=== PATIENT | female | born 1955 | race Caucasian/White ===

== ENCOUNTER 2018-07-19 06:28 | Emergency (ER) | payer OTHER, SELFPAY ==
[2018-07-19] MEDS ORDERED: PROMETHAZINE 25 MG/ML VIAL ONE (07:22)
[2018-07-19] MEDS ORDERED: NA CHLORIDE 0.9% 1,000 ML ONE ×2 (07:22→08:37)
[2018-07-19 07:34] LABS: Absolute Lymphocytes (CBC) 1.8 K/uL (0.7-4.9); Absolute Monocytes 0.6 K/uL (0.1-1.3); Absolute Neutrophil 7.2 K/uL (1.8-8.0); Basophils % 1.1 % (0-1.3); Eosinophils % 0.1 % (0-4.4); Hematocrit 39.6 % (36.0-45.0); Lymphocytes % 18.9 % (15.3-44.8); MPV 9.5 fL (7.6-11.3); Monocytes % 5.8 % (3.3-12.3); RBC Red Blood Cell Count 4.09 M/uL (3.86-4.86)
[2018-07-19 07:45] LABS: Urine Blood NEGATIVE (NEG); Urine Glucose NEGATIVE (NEG); Urine Protein NEGATIVE (NEG)
[2018-07-19 07:52] LABS: Albumin 4.1 g/dL (3.4-5.0); Bilirubin Direct 0.3 mg/dL (0-0.2); Bilirubin Total 0.7 mg/dL (0.2-1.0); Potassium 3.7 mmol/L (3.5-5.1); Protein, Total 7.5 g/dL (6.4-8.2)
[2018-07-19 07:54] LABS: Urine Bacteria >50 /HPF (<20); Urine RBC <5 /HPF (NONE SEEN)
[2018-07-19 07:55] LABS: Urine Culture Reflex Order REFLEXED; Urine Mucus LIGHT /HPF (NONE SEEN)
[2018-07-19] MEDS ORDERED: FAMOTIDINE 20 MG/2 ML VIAL IV ONE (08:07)
[2018-07-19] MEDS ORDERED: MAGNESIUM SULFATE 1 gm IVPB 1 GM/100 ML BAG IV ONE (08:07)
[2018-07-19] MEDS ORDERED: CEFTRIAXONE/SWI 1gm 0 GM/0 ML SYR ONE (08:07)
--- NOTE | 2018-07-19 08:41 | RAD REPORT ---
EXAM DESCRIPTION: CTAbdomen Pelvis W Contrast - 07/19/2018 8:23 am CLINICAL HISTORY: Abdominal pain. iv only;Abd pain COMPARISON: Angio Aorta For Dissection dated 07/24/2016 TECHNIQUE: Biphasic CT imaging of the abdomen and pelvis was performed with 100 ml non-ionic IV cont rast. All CT scans are performed using dose optimization technique as appropriate and may include automated exposure control or mA/KV adjustment according to patient size. FINDINGS: The lung bases are clear.Postsurgical changes of a gastric bypass noted. Cholecystectomy c lips. The liver, spleen, pancreas, adrenal glands and kidneys are within normal limits. Small cyst is seen in the right kidney posteriorly. No bowel obstruction, free air, free fluid or abscess. Scattered colonic diverticulosis. The appendix is normal. No evidence of significant lymphadenopathy. No suspicious bony findings. IMPRESSION: No acute intra-abdominal or pelvic finding.
[2018-07-19] MEDS ORDERED: ONDANSETRON 4 MG/2 ML VIAL ONE (08:43)
[2018-07-19] MEDS ORDERED: MORPHINE 4 MG/ML SYR ONE (08:43)
[2018-07-19] MEDS ORDERED: metroNIDAZOLE 500 MG TABLET ONE (09:39)
[2018-07-19] MEDS ORDERED: CIPROFLOXACIN HCL 500 MG TAB ONE (09:40)
--- NOTE | 2018-07-19 09:53 | ER ---
Nurse's Notes [facility] Name: Minnie Flores Age: 62 yrs Sex: Female : 1955 Arrival Date: 07/19/2018 Time: 06:29 Bed 7 Private MD: Diagnosis: Gastroenteritis;Dehydration;Hypomagnesemia;Urinary tract infection, site not specified Presentation: 07/19 06:38 Presenting complaint: Patient states: Nausea and vomiting since Monday. Patient reports ao abdominal pain also and getting confuse lately. Patient reports a fall two days ago and denies trauma. Transition of care: patient was not received from another setting of care. Onset of symptoms is unknown. Risk Assessment: Do you want to hurt yourself or someone else? Patient reports no desire to harm self or others. Initial Sepsis Screen: Does the patient meet any 2 criteria? No. Patient's initial sepsis screen is negative. Does the patient have a suspected source of infection? No. Patient's initial sepsis screen is negative. Care prior to arrival: None. 06:38 Method Of Arrival: Ambulatory ao 06:38 Acuity: AMY 3 ao Triage Assessment: 06:44 General: Appears. ao 06:45 GI: Reports. ao Historical: - Allergies: 06:42 Prilosec; ao 06:42 Seroquel; ao - Home Meds: 06:42 acarbose 50 mg Oral tab twice a day [Active]; lamotrigine 100 mg Oral TbDL 1 tab 2 ao times per day [Active]; 06:49 alendronate 70 mg Oral tab 1 tab once wkly [Active]; hydrocodone-acetaminophen 10-325 ao mg Oral tab 1 tab every 6 hours [Active]; Lorazepam Oral [Active]; trazodone 150 mg Oral tab 1 tab 2 times per day [Active]; lurasidone Oral once daily [Active]; promethazine 25 mg Oral tab 1 tab every 6 hours [Active]; oxcarbazepine 300 mg Oral tab three times a day [Active]; aspirin 81 mg Oral TbEC 1 tab once daily [Active]; sumatriptan succinate 100 mg Oral tab every 2 hours as needed for migraine, max 2 tabs per day [Active]; buspirone 15 mg Oral tab three times a day [Active]; - PMHx: 06:42 Bipolar disorder; Degenerative disc disease; Depression; Fibromyalgia; ao - PSHx: 06:42 Hysterectomy; ao - Immunization history:: Adult Immunizations up to date. - Social history:: Smoking status: Patient/guardian denies using tobacco, Patient uses alcohol, occasionally. Patient/guardian denies using street drugs. - Ebola Screening: : Patient negative for fever greater than or equal to 101.5 degrees Fahrenheit, and additional compatible Ebola Virus Disease symptoms Patient denies exposure to infectious person Patient denies travel to an Ebola-affected area in the 21 days before illness onset. Screenin:44 Abuse screen: Denies threats or abuse. Denies injuries from another. Nutritional ao screening: No deficits noted. Tuberculosis screening: No symptoms or risk factors identified. Fall Risk None identified. Assessment: 06:45 General: Appears in no apparent distress. uncomfortable, Behavior is calm, cooperative, ao appropriate for age. Pain: Complains of pain in abdomen Pain does not radiate. Pain currently is 8 out of 10 on a pain scale. Neuro: Level of Consciousness is awake, alert, obeys commands, Oriented to person, place, time, situation, Appropriate for age Moves all extremities. Full function Speech is normal, Facial symmetry appears normal, Pupils are PERRLA. Cardiovascular: Capillary refill < 3 seconds Patient's skin is warm and dry. Respiratory: Airway is patent Respiratory effort is even, unlabored, Respiratory pattern is regular, symmetrical. GI: Abdomen is obese, Reports lower abdominal pain, upper abdominal pain, nausea, vomiting. : No signs and/or symptoms were reported regarding the genitourinary system. EENT: No signs and/or symptoms were reported regarding the EENT system. Derm: Skin is intact, Skin is pink, warm \T\ dry. normal, Skin temperature is warm. Musculoskeletal: Circulation, motion, and sensation intact. Range of motion: intact in all extremities. 07:45 Reassessment: Patient appears in no apparent distress at this time. No changes from jl7 previously documented assessment. Patient and/or family updated on plan of care and expected duration. Pain level reassessed. Patient is alert, oriented x 3, equal unlabored respirations, skin warm/dry/pink. 08:35 Reassessment: Pt reports continued abdominal pain and nausea, ERP notified, see MAR for jl7 orders. 09:20 Reassessment: Patient appears in no apparent distress at this time. Patient and/or jl7 family updated on plan of care and expected duration. Pain level reassessed. Patient is alert, oriented x 3, equal unlabored respirations, skin warm/dry/pink. Patient states symptoms have improved. 10:20 Reassessment: No changes from previously documented assessment. Patient and/or family jl7 updated on plan of care and expected duration. Pain level reassessed. Patient is alert, oriented x 3, equal unlabored respirations, skin warm/dry/pink. Vital Signs: 06:42 BP 157 / 87; Pulse 113; Resp 18; Temp 98.2(O); Pulse Ox 97% on R/A; Weight 85.28 kg ao (R); Height 5 ft. 6 in. (167.64 cm) (R); Pain 8/10; 07:00 BP 136 / 72; Pulse 85; Resp 16 S; Pulse Ox 100% on R/A; jl7 08:30 BP 154 / 73; Pulse 77; Resp 16 S; Pulse Ox 100% on R/A; jl7 09:20 BP 152 / 68; Pulse 79; Resp 16 S; Pulse Ox 99% on R/A; jl7 10:20 BP 153 / 70; Pulse 80; Resp 16 S; Pulse Ox 99% on R/A; jl7 06:42 Body Mass Index 30.34 (85.28 kg, 167.64 cm) ao ED Course: 06:29 Patient arrived in ED. ag3 06:34 Michael Rueda PA is PHCP. jr8 06:34 Cheng Mohan MD is Attending Physician. jr8 06:40 Triage completed. ao 06:43 Arm band placed on right wrist. Patient placed in an exam room, on a stretcher, on ao rn cardiac cath, on pulse oximetry, Patient notified of wait time. 06:44 Patient placed Patient notified of wait time Emesis basin given. ao 06:47 Patient has correct armband on for positive identification. Pulse ox on. NIBP on. ao 06:50 Missed attempt(s): 20 gauge in right antecubital area. ao 06:55 Inserted saline lock: 20 gauge in right upper arm, using aseptic technique. Blood ao collected. 07:09 Gama Duffy RN is Primary Nurse. jl7 08:02 Basic Metabolic Panel Sent. jl7 08:23 CT Abd/Pelvis - W/Contrast In Process Unspecified. EDMS 08:49 Nabeel Ellis MD is Attending Physician. jr8 10:20 No provider procedures requiring assistance completed. jl7 10:44 IV discontinued, intact, bleeding controlled, No redness/swelling at site. Pressure jl7 dressing applied. Administered Medications: 07:20 Drug: NS 0.9% 1000 ml Route: IV; Rate: 1000 ml; Site: right upper arm; jl7 08:20 Follow up: Response: No adverse reaction; IV Status: Completed infusion jl7 07:21 Drug: Phenergan 12.5 mg Route: IVP; Site: right upper arm; jl7 07:35 Follow up: Response: No adverse reaction; Nausea is decreased jl7 08:01 Drug: Pepcid 20 mg Route: IVP; Site: right upper arm; jl7 08:45 Follow up: Response: No adverse reaction jl7 08:35 Drug: NS 0.9% 1000 ml Route: IV; Rate: 1000 ml; Site: right upper arm; jl7 08:38 Drug: Zofran 4 mg Route: IVP; Site: right upper arm; jl7 09:17 Follow up: Response: No adverse reaction; Nausea unchanged jl7 08:40 Drug: morphine 4 mg Route: IVP; Site: right antecubital; jl7 09:18 Follow up: Response: No adverse reaction; Pain is decreased jl7 08:41 Drug: Magnesium Sulfate 1 grams Route: IVPB; Infused Over: 1 hrs; Site: right upper arm;jl7 09:34 Drug: Cipro 500 mg Route: PO; jl7 10:44 Follow up: Response: No adverse reaction jl7 09:35 Drug: Flagyl 500 mg Route: PO; jl7 10:44 Follow up: Response: No adverse reaction jl7 Outcome: 09:53 Discharge ordered by . jr8 10:44 Discharged to home ambulatory, with family. jl7 10:44 Condition: stable 10:44 Discharge instructions given to patient, family, Instructed on discharge instructions, follow up and referral plans. medication usage, Demonstrated understanding of instructions, follow-up care, medications, Prescriptions given X 4. 10:45 Patient left the ED. jl7 Addendum: 07/23/2018 07:43 Addendum: Culture Results: Positive urine culture. No further action required. Bacteria i w sensitive to prescribed antibiotic. Signatures: Dispatcher [employer] EDLori Ramirez, RN RN Michael Sheehan PA PA jr8 Ronnell Gutierrez RN RN ao Leal, Jahala, RN RN jl7 Mikayla Schroeder3 Corrections: (The following items were deleted from the chart) 07/19 10:45 10:20 IV discontinued, intact, bleeding controlled, No redness/swelling at site. jl7 Pressure dressing applied, jl7
--- NOTE | 2018-07-19 09:54 | EDPHYS ---
Physician Documentation [facility] Name: Minnie Flores Age: 62 yrs Sex: Female : 1955 Arrival Date: 07/19/2018 Time: 06:29 Bed 7 Private MD: ED Physician Nabeel Ellis HPI: 07/19 08:06 This 62 yrs old Female presents to ER via Ambulatory with complaints of jr8 Vomiting/Diarrhea. 08:06 The patient presents to the emergency department with nausea, vomiting, diarrhea, jr8 abdominal pain. Onset: The symptoms/episode began/occurred gradually, 4 day(s) ago. Possible causes: unknown. The symptoms are aggravated by food , The symptoms are alleviated by nothing. Associated signs and symptoms: The patient has no apparent associated signs or symptoms. Severity of symptoms: At their worst the symptoms were moderate in the emergency department the symptoms are unchanged. The patient has not experienced similar symptoms in the past. The patient has not recently seen a physician. Stated that she has not been able to hold down any of her home medications since Monday morning. concerned because she has been hallucinating on/off. Patient stated that she saw specs of blood in last vomiting episode . Historical: - Allergies: 06:42 Prilosec; ao 06:42 Seroquel; ao - Home Meds: 06:42 acarbose 50 mg Oral tab twice a day [Active]; lamotrigine 100 mg Oral TbDL 1 tab 2 ao times per day [Active]; 06:49 alendronate 70 mg Oral tab 1 tab once wkly [Active]; hydrocodone-acetaminophen 10-325 ao mg Oral tab 1 tab every 6 hours [Active]; Lorazepam Oral [Active]; trazodone 150 mg Oral tab 1 tab 2 times per day [Active]; lurasidone Oral once daily [Active]; promethazine 25 mg Oral tab 1 tab every 6 hours [Active]; oxcarbazepine 300 mg Oral tab three times a day [Active]; aspirin 81 mg Oral TbEC 1 tab once daily [Active]; sumatriptan succinate 100 mg Oral tab every 2 hours as needed for migraine, max 2 tabs per day [Active]; buspirone 15 mg Oral tab three times a day [Active]; - PMHx: 06:42 Bipolar disorder; Degenerative disc disease; Depression; Fibromyalgia; ao - PSHx: 06:42 Hysterectomy; ao - Immunization history:: Adult Immunizations up to date. - Social history:: Smoking status: Patient/guardian denies using tobacco, Patient uses alcohol, occasionally. Patient/guardian denies using street drugs. - Ebola Screening: : Patient negative for fever greater than or equal to 101.5 degrees Fahrenheit, and additional compatible Ebola Virus Disease symptoms Patient denies exposure to infectious person Patient denies travel to an Ebola-affected area in the 21 days before illness onset. ROS: 08:06 Eyes: Negative for injury, pain, redness, and discharge, ENT: Negative for injury, jr8 pain, and discharge, Neck: Negative for injury, pain, and swelling, Cardiovascular: Negative for chest pain, palpitations, and edema, Respiratory: Negative for shortness of breath, cough, wheezing, and pleuritic chest pain, Back: Negative for injury and pain, MS/Extremity: Negative for injury and deformity, Skin: Negative for injury, rash, and discoloration, Neuro: Negative for headache, weakness, numbness, tingling, and seizure. 08:06 Abdomen/GI: Positive for abdominal pain, nausea, vomiting, and diarrhea, hematemesis, Negative for abdominal distension, black/tarry stool, rectal pain, rectal bleeding, bowel incontinence, flatulence. Exam: 08:08 Constitutional: This is a well developed, well nourished patient who is awake, alert, jr8 and in no acute distress. Eyes: Pupils equal round and reactive to light, extra-ocular motions intact. Lids and lashes normal. Conjunctiva and sclera are non-icteric and not injected. Cornea within normal limits. Periorbital areas with no swelling, redness, or edema. ENT: Nares patent. No nasal discharge, no septal abnormalities noted. Tympanic membranes are normal and external auditory canals are clear. Oropharynx with no redness, swelling, or masses, exudates, or evidence of obstruction, uvula midline. Mucous membranes moist. Neck: Trachea midline, no thyromegaly or masses palpated, and no cervical lymphadenopathy. Supple, full range of motion without nuchal rigidity, or vertebral point tenderness. No Meningismus. Cardiovascular: Regular rate and rhythm with a normal S1 and S2. No gallops, murmurs, or rubs. Normal PMI, no JVD. No pulse deficits. Respiratory: Lungs have equal breath sounds bilaterally, clear to auscultation and percussion. No rales, rhonchi or wheezes noted. No increased work of breathing, no retractions or nasal flaring. Back: No spinal tenderness. No costovertebral tenderness. Full range of motion. Skin: Warm, dry with normal turgor. Normal color with no rashes, no lesions, and no evidence of cellulitis. MS/ Extremity: Pulses equal, no cyanosis. Neurovascular intact. Full, normal range of motion. Neuro: Awake and alert, GCS 15, oriented to person, place, time, and situation. Cranial nerves II-XII grossly intact. Motor strength 5/5 in all extremities. Sensory grossly intact. Cerebellar exam normal. Normal gait. 08:08 Abdomen/GI: Inspection: abdomen appears normal, Bowel sounds: active, all quadrants, Palpation: soft, in all quadrants, mild abdominal tenderness, in the abdomen diffusely, mass, is not appreciated, rebound tenderness, is not appreciated, voluntary guarding, is not appreciated, involuntary guarding, is not appreciated, no appreciated organomegaly, Indicators: McBurney's point is not tender, Belcher's sign is negative, Rovsing's sign is negative, Liver: tenderness, is not appreciated. Vital Signs: 06:42 BP 157 / 87; Pulse 113; Resp 18; Temp 98.2(O); Pulse Ox 97% on R/A; Weight 85.28 kg ao (R); Height 5 ft. 6 in. (167.64 cm) (R); Pain 8/10; 07:00 BP 136 / 72; Pulse 85; Resp 16 S; Pulse Ox 100% on R/A; jl7 08:30 BP 154 / 73; Pulse 77; Resp 16 S; Pulse Ox 100% on R/A; jl7 09:20 BP 152 / 68; Pulse 79; Resp 16 S; Pulse Ox 99% on R/A; jl7 10:20 BP 153 / 70; Pulse 80; Resp 16 S; Pulse Ox 99% on R/A; jl7 06:42 Body Mass Index 30.34 (85.28 kg, 167.64 cm) ao MDM: 06:34 Patient medically screened. jr8 09:52 Data reviewed: vital signs, nurses notes, lab test result(s), radiologic studies, CT jr8 scan, and as a result, I will discharge patient. Data interpreted: Pulse oximetry: on room air is 99 %. Interpretation: normal. Counseling: I had a detailed discussion with the patient and/or guardian regarding: the historical points, exam findings, and any diagnostic results supporting the discharge/admit diagnosis, lab results, radiology results, the need for outpatient follow up, a family practitioner, to return to the emergency department if symptoms worsen or persist or if there are any questions or concerns that arise at home. Response to treatment: the patient's symptoms have markedly improved after treatment. 07/19 06:34 Order name: Basic Metabolic Panel [facility] 07/19 06:34 Order name: CBC with Diff; Complete Time: 07:39 [facility] 07/19 06:34 Order name: Creatinine for Radiology; Complete Time: 08:05 07/19 06:34 Order name: Hepatic Function; Complete Time: 08:05 [facility] 07/19 06:34 Order name: Lipase; Complete Time: 08:05 [facility] 07/19 06:35 Order name: Basic Metabolic Panel; Complete Time: 08:05 [facility] 07/19 07:07 Order name: Magnesium; Complete Time: 08:05 8 07/19 07:21 Order name: Urine Microscopic Only; Complete Time: 08:05 [facility] 07/19 07:25 Order name: Urine Dipstick--Ancillary (enter results); Complete Time: 07:46 1 07/19 07:56 Order name: Urine Culture [facility] 07/19 08:06 Order name: CT Abd/Pelvis - W/Contrast; Complete Time: 08:45 [facility] 07/19 06:34 Order name: IV Saline Lock; Complete Time: 07:01 07/19 06:34 Order name: Labs collected and sent; Complete Time: 07:07/19 07:08 Order name: Urine Dipstick-Ancillary (obtain specimen); Complete Time: 07:23 jr Administered Medications: 07:20 Drug: NS 0.9% 1000 ml Route: IV; Rate: 1000 ml; Site: right upper arm; jl7 08:20 Follow up: Response: No adverse reaction; IV Status: Completed infusion jl7 07:21 Drug: Phenergan 12.5 mg Route: IVP; Site: right upper arm; jl7 07:35 Follow up: Response: No adverse reaction; Nausea is decreased jl7 08:01 Drug: Pepcid 20 mg Route: IVP; Site: right upper arm; jl7 08:45 Follow up: Response: No adverse reaction 08:35 Drug: NS 0.9% 1000 ml Route: IV; Rate: 1000 ml; Site: right upper arm; jl7 08:38 Drug: Zofran 4 mg Route: IVP; Site: right upper arm; jl7 09:17 Follow up: Response: No adverse reaction; Nausea unchanged jl7 08:40 Drug: morphine 4 mg Route: IVP; Site: right antecubital; jl7 09:18 Follow up: Response: No adverse reaction; Pain is decreased jl7 08:41 Drug: Magnesium Sulfate 1 grams Route: IVPB; Infused Over: 1 hrs; Site: right upper arm;jl7 09:34 Drug: Cipro 500 mg Route: PO; jl7 10:44 Follow up: Response: No adverse reaction 7 09:35 Drug: Flagyl 500 mg Route: PO; jl7 10:44 Follow up: Response: No adverse reaction jl7 Disposition: 12:52 Co-signature as Attending Physician, Nabeel Ellis MD I agree with the assessment and [facility] [place] plan of care. Disposition: 07/19/18 09:53 Discharged to Home. Impression: Gastroenteritis, Dehydration, Hypomagnesemia, Urinary tract infection, site not specified. - Condition is Stable. - Discharge Instructions: Dehydration, Adult, Urinary Tract Infection, Adult, Viral Gastroenteritis, Adult. - Prescriptions for promethazine 25 mg Rectal suppository - insert 1 suppository by RECTAL route every 6 hours; 12 suppository. Bentyl 20 mg Oral Tablet - take 1 tablet by ORAL route every 6 hours As needed; 20 tablet. Cipro 500 mg Oral Tablet - take 1 tablet by ORAL route every 12 hours for 10 days; 20 tablet. Flagyl 500 mg Oral Tablet - take 1 tablet by ORAL route every 6 hours for 10 days; 40 tablet. - Medication Reconciliation Form, Thank You Letter, Antibiotic Education, Prescription Opioid Use form. - Follow up: Private Physician; When: 2 - 3 days; Reason: Recheck today's complaints, Continuance of care, Re-evaluation by your physician. - Problem is new. - Symptoms have improved. Signatures: Dispatcher [employer] Nabele Kebede MD MD cha Roszak, Josh, PA PA jr8 Ronnell Gutierrez, RN RN Gama Boykin RN RN jl7 Corrections: (The following items were deleted from the chart) 08:09 08:06 Stated that she has not been able to hold down any of her home medications since jr8 Monday morning. concerned because she has been hallucinating on/off . jr8 10:45 09:53 07/19/2018 09:53 Discharged to Home. Impression: Gastroenteritis; Dehydration; jl7 Hypomagnesemia; Urinary tract infection, site not specified. Condition is Stable. Forms are Medication Reconciliation Form, Thank You Letter, Antibiotic Education, Prescription Opioid Use. Follow up: Private Physician; When: 2 - 3 days; Reason: Recheck today's complaints, Continuance of care, Re-evaluation by your physician. Problem is new. Symptoms have improved. jr8
[2018-07-19 11:00] VITALS: TEMP 98.2
[2018-07-19 11:04] VITALS: O2SAT 99
[2018-07-19 11:05] VITALS: BP 153/70
== END 2018-07-19 10:45 | disposition home or self-care (01) ==
LOC: ER 06:28
DX: K52.9 Noninfective gastroenteritis and colitis, unspecified (principal); E86.0 Dehydration; E83.42 Hypomagnesemia; N39.0 Urinary tract infection, site not specified; F31.9 Bipolar disorder, unspecified; M79.7 Fibromyalgia; Z79.82 Long term (current) use of aspirin; Z79.899 Other long term (current) drug therapy
CPT/HCPCS: 36415; 74177; 80048; 80076; 81003; 81015; 83690; 83735; 85025; 87077; 87086; 87088; 87186; 99284; J0696; J2405; J2550; J3475; J7030; Q9967

== ENCOUNTER 2020-05-25 09:52 | Emergency (ER) | payer OTHER ==
[2020-05-25 10:57] LABS: Absolute Lymphocytes (CBC) 1.6 K/uL (0.7-4.9); Hematocrit 33.6 % (36.0-45.0); Lymphocytes % 14.8 % (15.3-44.8); MPV 7.4 fL (7.6-11.3); RBC Red Blood Cell Count 3.44 M/uL (3.86-4.86)
[2020-05-25 11:01] LABS: Protime INR 1.04
--- NOTE | 2020-05-25 11:04 | RAD REPORT ---
EXAM DESCRIPTION: CT - Head Brain Wo Cont - 05/25/2020 10:57 am CLINICAL HISTORY: Syncope COMPARISON: 2018 TECHNIQUE: Computed axial tomography of the head was obtained. IV contrast was not requested. All CT scans are performed using dose optimization technique as appropriate and may include automated exposure control or mA/KV adjustment according to patient size. FINDINGS: An intracranial bleed is not seen . The ventricles are normal in caliber. No extra-axial fluid collection is noted. Fluid within the sinuses/ mastoids is not seen. IMPRESSION: No acute intracranial abnormality is seen. If patient's symptoms persist MRI of the bra in would be recommended.
[2020-05-25 11:20] LABS: ALT/SGPT 20 U/L (12-78); AST/SGOT 22 U/L (15-37); Albumin 2.8 g/dL (3.4-5.0); Alkaline Phosphatase 103 U/L (45-117); BUN Blood Urea Nitrogen 15 mg/dL (7-18); Bicarbonate 24 mmol/L (21-32); Bilirubin Direct 0.1 mg/dL (0-0.2); Bilirubin Total 0.3 mg/dL (0.2-1.0); Glucose Level 93 mg/dL (74-106); Potassium 4.4 mmol/L (3.5-5.1); Protein, Total 7.2 g/dL (6.4-8.2); Sodium Level 141 mmol/L (136-145); Troponin (Emerg Dept Use Only) < 0.02 ng/mL (0.0-0.045)
--- OUTSIDE RECORDS SUMMARY | 2020-05-25 11:27 | XMS REPORT | Clinical Summary ---
:1955 Author Organization [facility] Address [address] [place] [address] Care Team Providers Name Role Phone Unavailable Primary Care Provider Unavailable Allergies Active Allergy Reactions Severity Noted Date Comments Omeprazole Swelling 07/25/2018 Quetiapine Other (See Comments) 07/25/2018 faint Medications Medication Sig Dispensed Refills Start Date End Date Status ciprofloxacin HCl Take 500 mg by 0 Active (CIPRO) 500 MG tablet mouth. HYDROcodone-acetaminop Take 2 tablets by 0 8 Active hen (NORCO) 10-325 mg mouth. per tablet lurasidone (LATUDA) 40 Take by mouth. 0 Active mg Tab LORazepam (ATIVAN) 1 Take 1 mg by 0 Active MG tablet mouth. metroNIDAZOLE (FLAGYL) TAKE 1 TABLET BY 0 07/19/2018 Active 500 MG tablet MOUTH EVERY 6 HOURS FOR 10 DAYS promethazine UNWRAP AND INSERT 0 07/19/2018 Active (PHENERGAN) 25 MG RECTALLY 1 suppository SUPPOSITORY EVERY 6 HOURS rizatriptan (MAXALT) TAKE 1 TABLET BY 0 11/21/2017 Active 10 MG tablet MOUTH AT ONSET OF HEADACHE MAY REPEAT 1 TABLET ONCE AFTER 2 HOURS IF NEEDED MAX 2 TABLETS IN 24 HOURS SUMAtriptan (IMITREX) TAKE ONE TABLET AT 0 8 Active 100 MG tablet ONSET OF HEADACHE MAY REPEAT ONE TABLET ONCE AFTER 2 HOURS IF NEEDED MAX 2 TABLETS IN 24 HOURS tiZANidine (ZANAFLEX) TAKE TWO TABLETS 0 06/25/2018 Active 4 MG tablet BY MOUTH EVERY NIGHT AT BEDTIME ondansetron Take 1 tablet (4 10 tablet 0 07/25/2018 Active (ZOFRAN-ODT) 4 MG mg total) by mouth disintegrating tablet every 4 (four) hours as needed for Nausea for up to 10 doses. Active Problems Not on file Social History Tobacco Use Types Packs/Day Years Used Date Never Smoker Smokeless Tobacco: Never Used Alcohol Use Drinks/Week oz/Week Comments No Alcohol Habits Answer Date Recorded How often do you have a drink containing alcohol? Never 07/25/2018 How many drinks containing alcohol do you have on a typical Not asked day when you are drinking? How often do you have six or more drinks on one occasion? No t asked Sex Assigned at Date Recorded Not on file Last Filed Vital Signs Not on file Plan of Treatment Health Maintenance Due Date Last Done Comments BREAST CANCER SCREENING 1955 COLON CANCER SCREENING COLONOSCOPY 1955 CERVICAL CANCER SCREENING PAP ONLY 12/13/1975 (Age 21-65) LIPID PANEL 12/13/1999 MEDICARE ANNUAL WELLNESS (YEAR 2 07/11/2019 or FIRST YEAR if no IPPE) PNEUMOCOCCAL 65+ YRS (1 of - 12/13/2019 03/01/2012 [id number]) INFLUENZA VACCINE (#1) 2020 04/19/2017, 04/29/2016, 04/23/2015, Additional history exists Results Not on fileafter 05/25/2019 Insurance Payer Benefit Plan / Subscriber ID Effective Dates Phone Addre ss Type Group [employer] [id number] 2018-Present [facility] [employer]
--- OUTSIDE RECORDS SUMMARY | 2020-05-25 11:28 | XMS REPORT | Continuity of Care Document ---
:1955 Author Organization [employer] Care Team Providers Name Role Phone [employer] Unavailable Un available Problems Problem Status Onset Classification Date Comments Sourc e Date Reported Insomnia due to Active Problem 02/26/2020 Suzy ston other mental Behavio ral disorder Health Anxiety Active Problem 02/26/2020 Emmanuel disorder, Behavioral unspecified Health Unspecified Active Diagnosis 02/25/2020 Emmanuel bipolar and Behavior al related Health disorder Bipolar Active Problem 02/26/2020 Emmanuel disorder, Behavioral current episode Heal th depressed, moderate Medications Medication Details Route Status Patient Ordering Order Source Instructions Provider Date Benztropine 1 tablet Orally Active 1 MG Orally Lopez Emmanuel Mesylate at bedtime Once a day 020 Behaviora l Health Trazodone HCl 1-3 Orally Active 50 MG Orally Lopez [place] on tablets at Once a day 020 Behavioral bedtime as Health needed Trazodone HCl 1-3 Orally Active 50 MG Orally Lopez [place] on tablets at Once a day Behavioral bedtime as Health needed Mirtazapine 1/2-1 Orally Active 30 MG Orally John Emmanuel tablet at Once a day Behavioral bedtime Health Hydrocodone-Acet 2 tablets Orally Active 10-325 MG John Herronu ston aminophen as needed Orally every 6 Behav ioral hrs Health Ondansetron HCl not NA Active Lopez Emmanuel defined Behavioral Health Lorazepam 1 tablet Orally Active 1 MG Orally Lopez Emmanuel as needed Once a day Behavioral Health Metronidazole TAKE 1 Oral Active 500 MG Oral Lopez [place] TABLET BY Behavioral MOUTH Health EVERY 6 HOURS FOR 10 DAYS Rizatriptan 1 tablet Orally Active 10 MG Orally Lopez [place] Benzoate Once a day Behavioral Health Trazodone HCl 1 tablet Orally Active 150 MG Orally Lopez Suzy ston at bedtime Once a day Behavioral as needed Health Latuda 1 tablet Orally Active 120 MG Orally Lopez Emmanuel with food Once a day Behavioral Health BusPIRone HCl 1 tablet Orally Active 15 MG Orally Lopez [place] Three times a Behavioral day Health Tizanidine HCl 2 tablets Orally Active 4 MG Orally John Herronu ston at bedtime once a day Behavioral Health Sumatriptan 1 tablet Orally Active 100 MG Orally John [place] on Succinate at least 2 daily Behavioral hours Health between doses as needed Sumatriptan not NA Active John Emmanuel Succinate defined Behavioral Health Topiramate not NA Active John Emmanuel defined Behavioral Health Rizatriptan not NA Active John Emmanuel Benzoate defined Behavioral Health Promethazine HCl 1 tablet Orally Active 25 MG Orally John [place] once a day Behavioral Health BusPIRone HCl 1 tablet Orally Active 10 MG Orally John [place] ton Three times a Behavioral day Health Benztropine 1 tablet Orally Active 1 MG Orally John Emmanuel Mesylate at bedtime Once a day Behaviora l Health Allergies, Adverse Reactions, Alerts Substance Category Reaction Severity Reaction Status Date Comments S ource type Reported Seroquel Adverse impairs Adverse Active [place] on Reaction sleep Reaction 0 Behavi oral Health Omeprazole Adverse throat Adverse Active Suzy ston Reaction swell and Reaction 0 Beha vioral bleed Health Aspartame Adverse migraines Adverse Active [place] Reaction Reaction 0 Behavi oral Health HYPNOTICS Adverse migraines Adverse Active [place] Reaction Reaction 0 Behavi oral Health Immunizations No Data Provided for This Section Results No Data Provided for This Section Pathology Reports No Data Provided for This Section Diagnostic Reports No Data Provided for This Section Consultation Notes No Data Provided for This Section Discharge Summaries No Data Provided for This Section History and Physicals No Data Provided for This Section Vital Signs Vital Sign Value Date Comments Source Weight 185 02/25/2020 [facility] Weight 185 01/27/2020 [facility] Weight 190 12/30/2019 [facility] Weight 188 12/06/2019 [facility] Weight 190 11/06/2019 [facility] Height 67 11/06/2019 [facility] Weight 196.2 07/16/2019 [facility] Height 67 07/16/2019 [facility] Heart Rate 94 07/16/2019 [facility] Diastolic (mm Hg) 76 07/16/2019 [facility] Systolic (mm Hg) 121 07/16/2019 [facility] Weight 192.6 06/10/2019 [facility] Height 67 06/10/2019 [facility] Heart Rate 90 06/10/2019 [facility] Diastolic (mm Hg) 74 06/10/2019 [facility] Systolic (mm Hg) 139 06/10/[address] [facility] Encounters No Data Provided for This Section Procedures No Data Provided for This Section Assessment and Plan No Data Provided for This Section Plan of Care No Data Provided for This Section Social History No Data Provided for This Section Family History No Data Provided for This Section Advance Directives No Data Provided for This Section Functional Status No Data Provided for This Section
--- OUTSIDE RECORDS SUMMARY | 2020-05-25 11:28 | XMS REPORT ---
:1955 Author Organization [employer] Care Team Providers Name Role Phone Lola Lopez Provider Role Unavailable Allergies, Adverse Reactions, Alerts Substance Reaction Event Type Seroquel impairs sleep Drug Allergy Omeprazole throat swell and bleed Drug Allergy Aspartame migraines Drug Allergy HYPNOTICS migraines Non Drug Allergy Problems Problem Type Condition Code Onset Dates Condition Statu s Problem Insomnia due to other mental F51.05 Active disorder Problem Anxiety disorder, unspecified F41.9 Active Problem Bipolar disorder, current episode F31.32 Active depressed, moderate Assessment Insomnia due to other mental F51.05 Active disorder Assessment Anxiety disorder, unspecified F41.9 Active Assessment Bipolar disorder, current episode F31.32 Active depressed, moderate Medications Medication Code Code Instructions Start End Status Dosage System Date Date Trazodone HCl [facility] 99585953804 150 MG Orally Active 1 tablet Once a day at bedtime as needed Tizanidine HCl [facility] 14790811857 4 MG Orally Active 2 tablets once a day at bedtime Metronidazole [facility] 25045515625 500 MG Oral Active TA KE 1 TABLET BY MOUTH EVERY 6 HOURS FOR 10 DAYS Ondansetron HCl [facility] [address]-96 Active no t defined Benztropine [facility] 31403822773 1 MG Orally Active 1 ta blet Mesylate Once a day at bedtime Lorazepam ND 66288556329 1 MG Orally Active 1 tabl et Once a day as needed Rizatriptan [facility] 09183747695 10 MG Orally Active 1 t ablet Benzoate Once a day Sumatriptan ND 42079346139 100 MG Orally Active 1 tablet Succinate daily at least 2 hours between doses as needed Hydrocodone-Acet ND 04357711978 10-325 MG Active 2 tablets aminophen Orally every 6 as need ed hrs Latuda [facility] 95061745670 120 MG Orally Active 1 tabl et Once a day with food BusPIRone HCl [facility] 82887550587 15 MG Orally Active 1 tablet Three times a day Vital Signs Date/Time: Feb 25, 2020 BMI 28.97 Index Weight 185 lbs Height 5ft 7in in Results No Known Results Summary Purpose [employer] Submission
--- OUTSIDE RECORDS SUMMARY | 2020-05-25 11:31 | XMS REPORT | Continuity of Care Document ---
:[address] [facility] t Address [address] [place] [address] Care Team Providers Name Role Phone PERLA AYON Attending Clinician Unavailable Payers Payer Name Policy Type Policy Number Effective Date Expiration Date S ource Problems Condition Condition Condition Status Onset Resolution Last Treating Co mments Source Name Details Category Date Date Treatment Clinician Date Insomnia Problem Active 2020-02-26 Mem oria due to 02:45:46 l other Insomnia Todd n mental due to disorder other mental disorder Active Problem 02/26/2020 [facility] Anxiety Problem Active 2020-02-26 Shekhar clarice disorder, 02:45:46 l unspecifie Anxiety Her romo d disorder, unspecifie d Active Problem 02/26/2020 [facility] Unspecifie Diagnosis Active 2020-02-25 Memoria d bipolar 02:46:24 l and Félix related Unspecifie disorder d bipolar and related disorder Active Diagnosis 02/25/2020 [facility] Bipolar Problem Active 2020-02-26 Shekhar clarcie disorder, 02:45:46 l current Bipolar Todd n episode disorder, depressed, current moderate episode depressed, moderate Active Problem 02/26/2020 [facility] Allergies, Adverse Reactions, Alerts Allergy Allergy Status Severity Reaction(s) Onset Inactive Treating Comm ents Source Name Type Date Date Clinician No Known DA Active U 2019-07 [facility] All[facility]ie 0-24 [place] [facility] 00:[facility]: Health 00 are [facility] omeprazo DA Active SV 2019-07 [facility] le 0-24 [place] 00:00: [facility]c 00 are [facility] quetiapi DA Active SV 2019-1 [facility] ne 0-24 Emmanuel 00:00: Health 00 are [facility] Seroquel Seroquel Active impairs Memor ia sleep 8-18 l 00:00: Omeprazo Omeprazo Active throat swell 0 Memoria le le and bleed 8-18 l 00:00: Aspartam Aspartam Active migraines Mem oria e e 8-18 l 00:00: HYPNOTIC HYPNOTIC Active migraines 0 Mem oria S S 8-18 l 00:00: Omeprazo Propensi Active Swelling [facility]: Medical reaction 00 [place] Quetiapi Propensi Active Other (See faint [facility] Comments) 07-[facility] adverse 00:00: Medical reaction 00 [place] [facility] Social History Social Habit Start Date Stop Date Quantity Comments Source History [facility] Std Drinks Medica l Center History [facility] Binge Medical Carole ter Sex Assigned At [facility] Tobacco use and 2018-07-25 2018-07-[address] [facility] - exposure 00:00:00 00:00:00 [facility] Alcohol intake 2018-07-25 [facility]07[facility] non-drinker of Medical Ce nter alcohol (finding) History SDOH 2018-07-25 2018-07-[address] [facility] - Alcohol Frequency 00:00:00 00:00:00 [facility] Smoking Status Start Date Stop Date Source Never smoker [facility] Medications Ordered Filled Start Stop Current Ordering Indication Dosage Frequency Signature Comments Components Source Medication Medication Date Date Medication? Clinician (SIG) Name Name Hydrocodone Yes Lola 2 tablets Memoria -Acetaminop 8-19 Lopez as needed l hen 02:45: 46 Ondansetron 2019- Yes Lola not Mem oria HCl 8-19 Lopez defined l 02:45: 46 Lorazepam Yes Lola 1 tablet M emoria 8-19 Lopez as needed l 02:45: Félix 46 Metronidazo 2020-0 Yes Lola TAKE 1 M emoria le 8-19 Lopez TABLET BY l 02:45: MOUTH Félix 46 EVERY 6 HOURS FOR 10 DAYS Rizatriptan 2020-0 Yes Lola 1 tablet Memoria Benzoate 8-19 Lopez l 02:45: Félix 45 Trazodone 2020-0 Yes Lola 1 tablet M emoria HCl 8-19 Lopez at bedtime l 02:45: as needed Félix 46 Latuda 2020-0 Yes Lola 1 tablet Shekhar clarice 8-19 Lopez with food l 02:45: Félix 45 BusPIRone 2020-0 Yes Lola 1 tablet M emoria HCl 8-19 Lopez l 02:45: Félix 45 Tizanidine 2020-0 Yes Lola 2 tablets Memoria HCl 8-19 Lopez at bedtime l 02:45: Félix 45 Sumatriptan 2020-0 Yes Lola 1 tablet Memoria Succinate 8-19 Lopez at least 2 l 02:45: hours Félix 46 between doses as needed Benztropine 2020-0 Yes Lola 1 tablet Memoria Mesylate 8-19 Lopez at bedtime l 02:45: Fél[place] 45 Mirtazapine 2020-0 Yes Lola 1/2-1 Me moria 8-18 Lopez tablet at l 02:46: bedtime Félix 28 Sumatriptan 2020-0 Yes Lola not Mem oria Succinate 8-18 Lopez defined l 02:46: Félix Topiramate 2020-0 Yes Lola not Shekhar clarice 8-18 Lopez defined l 02:46: Félix Rizatriptan 2020-0 Yes Lola not Mem oria Benzoate 8-18 Lopez defined l 02:46: Félix Promethazin 2020-0 Yes Lola 1 tablet Memoria e HCl 8-18 Lopez l 02:46: Félix Trazodone 2020-0 Yes Lola 1-3 Memor ia HCl 8-18 Lopez tablets at l 02:46: bedtime as Félix 27 needed BusPIRone 2020-0 Yes Lola 1 tablet M emoria HCl 8-18 Lopez l 02:46: [place] 24 Benztropine 2019-0 Yes Lola 1 tablet Memoria Mesylate 7-20 Lopez at bedtime l 00:00: Félix 00 Trazodone 2019-0 Yes Lola 1-3 Memor ia HCl 3-02 Lopez tablets at l 00:00: bedtime as [place] 00 needed ciprofloxac 2018- Yes 500mg Take [address] in HCl 1-16 mg by [facility] - (CIPRO) 500 16:57: mouth. Medi gabrielle MG tablet 34 [place] lurasidone Yes Take by [facility] (LATUDA) 40 1-16 mouth. [facility] - mg Tab 16:57: Medical [address] [place] [address] LORazepam Yes 1mg Take [address] (ATIVAN) 1 1-16 by mouth. Luke s - MG tablet 16:57: [address] ondansetron Yes 4mg Take [address] (ZOFRAN-ODT 1-16 tablet (4 [facility] - ) 4 MG 00:00: mg total) Medica l disintegrat 00 by mouth Cent er ing tablet every 4 (four) hours as needed for Nausea for up to 10 doses. metroNIDAZO Yes TAKE [address] [facility] (FLAGYL) 1-10 TABLET BY [facility] - 500 MG 00:00: MOUTH Medical tablet 00 EVERY 6 Center HOURS FOR 10 DAYS promethazin Yes UNWRAP AND [facility] 1-10 INSERT [facility] - (PHENERGAN) 00:00: RECTALLY 1 Medical 25 MG 00 SUPPOSITOR [place] suppository Y EVERY 6 HOURS HYDROcodone 2017-07 Yes 2{tbl} Take [address] -acetaminop 2-24 tablets by Tami colemans - hen (NORCO) 00:00: mouth. Medi gabrielle 10-325 mg 00 Center per tablet tiZANidine 2017-07 Yes TAKE TWO [facility] (ZANAFLEX) 2-17 TABLETS BY [facility] - 4 MG tablet 00:00: MOUTH Medic al 00 EVERY Center NIGHT AT BEDTIME rizatriptan Yes TAKE [address] (MAXALT) 10 5-15 TABLET BY [facility] - MG tablet 00:00: MOUTH AT Medi gabrielle 00 ONSET OF Center HEADACHE MAY REPEAT 1 TABLET ONCE AFTER 2 HOURS IF NEEDED MAX 2 TABLETS IN 24 HOURS SUMAtriptan Yes TAKE ONE [facility] (IMITREX) 5-15 TABLET AT [facility] - 100 MG 00:00: ONSET OF Medical tablet 00 HEADACHE Center MAY REPEAT ONE TABLET ONCE AFTER 2 HOURS IF NEEDED MAX 2 TABLETS IN 24 HOURS Vital Signs Vital Name Observation Time Observation Value Comments Source Weight 2020-02-25 16:00:00 [facility] Weight 2020-01-27 15:30:00 [facility] [place] Weight 2019-12-30 14:45:00 [facility] [place] Weight 2019-12-06 14:30:00 [facility] Weight 2019-11-06 16:30:00 [facility] Height 2019-11-06 16:30:00 [facility] [place] Weight 2019-07-16 19:45:00 [facility] [place] Height 2019-07-16 19:45:00 [facility] [place] Heart Rate 2019-07-16 19:45:00 [facility] [place] Diastolic (mm Hg) 2019-07-16 19:45:00 Mem orial [place] Systolic (mm Hg) 2019-07-16 19:45:00 Shekhar rial [place] Weight 2019-06-10 20:00:00 [facility] [place] Height 2019-06-10 20:00:00 [facility] [place] Heart Rate 2019-06-10 20:00:00 [facility] Diastolic (mm Hg) 2019-06-10 20:00:00 Mem orial [place] Systolic (mm Hg) 2019-06-10 20:00:00 Shekhar rial [place] Procedures This patient has no known procedures. Plan of Care Planned Activity Planned Date Details Comments Source Future Scheduled 2020-03-10 INFLUENZA VACCINE (#1) [facility] 00:[facility]:00 [code = INFLUENZA Medical Ce nter VACCINE (#1)] Future Scheduled 2019-12-13 PNEUMOCOCCAL 65+ [facility] Test 00:00:00 (1 of 1 - Medical Center [id number] PCV13) [code = PNEUMOCOCCAL 65+ YRS (1 of 1 - [id number] PCV13)] Future Scheduled 2019-07-[address] [facility] - Test 00:00:00 WELLNESS (YEAR 2 or Medical Center FIRST YEAR if no IPPE) [code = MEDICARE ANNUAL WELLNESS (YEAR 2 or FIRST YEAR if no IPPE)] Future Scheduled 1999-12-[address] [facility] - Test 00:00:00 (procedure) [code = Medical Center 75293549] Future Scheduled 1975-12-[address] [facility] - Test 00:00:00 [facility] cervix (procedure) [code = 113328687] Future Scheduled [address] [facility] - Test 00:00:00 [facility] breast (procedure) [code = 258319849] Future Scheduled [address] [facility] - Test 00:00:00 malignant neoplasm of [facility] colon (procedure) [code = 843637364] Encounters Start End Encounter Admission Attending Care Care Encounter Source Date/Time Date/Time Type Type Clinicians Facility Department ID 2020-02-25 2020-02-25 Outpatient EITAN EITAN [facility]ENFIELD [id number] eClinic 11:00:00 11:00:00 GIN CROSS MD PA alWork s PA 2020-01-27 2020-01-27 Outpatient EITAN EITAN [facility] [id number] eClinic 10:30:00 10:30:00 GIN CROSS MD PA alWork s PA 2019-12-30 2019-12-30 Outpatient EITAN EITAN [facility]FIELD [id number] eClinic 09:45:00 09:45:00 GIN CROSS MD PA alWork s PA 2019-12-06 2019-12-06 Outpatient EITAN EITAN [facility]ENFIELD [id number] eClinic 09:30:00 09:30:00 GIN CROSS MD PA alWork s PA 2019-11-18 2019-11-18 Outpatient Eitan Eitan [facility]field [id number] eClinic 15:01:00 15:01:00 Gin CROSS MD PA alWork s PA 2019-11-08 2019-11-08 Outpatient Eitan Eitan [facility] [id number] eClinic 09:15:00 09:15:00 Gin CROSS MD PA alWork s PA 2019-11-06 2019-11-06 Outpatient EITAN EITAN [facility]FIELD [id number] eClinic 11:30:00 11:30:00 GIN CROSS MD PA alWork s PA 2019-10-07 2019-10-07 Outpatient EITAN EITAN [facility] [id number] eClinic 12:15:00 12:15:00 GREENFIELD MD MD PA alWork s PA 2019-09-09 2019-09-09 Outpatient EITAN EITAN [facility] [id number] eClinic 13:45:00 13:45:00 GIN sarmientoCristal s PA 2019-07-16 2019-07-16 Outpatient EITAN EITAN [facility] [id number] eClinic 14:45:00 14:45:00 GIN sarmientoCristal s PA 2019-06-10 2019-06-10 Outpatient [id number] eClinic 15:58:00 15:58:00 [id number] alWorks [id number] 2019-06-10 2019-06-10 Outpatient EITAN EITAN [facility] [id number] eClinic 15:00:00 15:00:00 GIN FERRERA Elaine s PA Results Test Description Test Time Test Comments Results Result Comments Source VITAMIN A 2020-05-18 11:15:00 Test Item Value Reference Range Interpretation Comme nts VITAMIN A (test code = SARAH) 10.7 Vitamin A, SerumVitamin A 10.7 Low ug/dL 22.0-69.5 01Ref erence intervals for vitamin A determined from [facility]. Individuals wit h vitamin A less than 20 ug/dL areconsideredvi tamin A deficient and those with serum concentra tions fuidairw69 ug/dL are considered chery rely deficient.This test was developed and i ts performance characteristics determined by [facility]. It has not been cleare d or approvedby the Food and Drug Administra tion [id number] 07:54:00 Test Item Value Reference Range Interpretation Comments ZINC (test Test not performed () TRACE MUSA MENT (EDTA) code = ZI) ug/dL TUBE WAS SENT; WHOLE BLOODWHOLE BLOO D ZINC (TC 990900) WAS DONE TO REPLACE WRON G TEST CODE WHICHIS FO R SERUM;ZINC,WHOL E BLOOD RESULT : 679 UG/DL REFERENCE RANGE 440-860 UG/DLSe rum specimen was re ceived improperly sepa rated. Serumshould be from cells within one hour ofcollection.No tified Ade [facility] o at qehxhdh39/31/20 20 Detection Limit = 5 VITAMIN B1 (THIAMINE)2020-05-13 17:08:00 Test Item Value Reference Range Interpretation Comments VITAMIN B1 109.6 nmol/L 66.5-200.0 Performed At: B N (THIAMINE) (test [facility] code = VITB1) [address] [id number] ra Ricardo CROSS Ph:[phone] [id number] 05:52:00 Test Item Value Reference Range Interpretation Comments GLUBED (test code = GLUBED) 109 MG/DL 70-105 H [id number] 20:55:00 Test Item Value Reference Range Interpretation Comments GLUBED (test code = GLUBED) 113 MG/DL 70-105 H BASIC METABOLIC [id number] 18:15:00 Test Item Value Reference Range Interpretation Comments SODIUM (test code 136 mmol/L 135-145 N = NA) POTASSIUM (test 3.0 mmol/L 3.6-5.0 L code = K) CHLORIDE (test 98 mmol/L 101-111 L code = CL) CARBON DIOXIDE 24 mmol/L 21-31 N (test code = CO2) GLUCOSE (test code 193 mg/dl 70-100 H = GLU) BLOOD UREA < 5 mg/dl 6-20 L NITROGEN (test code = BUN) GLOMERULAR >=60 max >60 The estimated FILTRATION RATE estimate glomerular (test code = GFR) filtration rate is computed usingpatient ra ce, age (>18), sex, and serum creatinin e. If anyof the neede d data elements a re missing the Laboratory jennifer ot compute an estimation of t he glomerular filtration rate . CREATININE (test 0.63 mg/dL 0.44-1.03 N code = CREAT) CALCIUM (test code 8.5 mg/dL 8.5-10.5 N = CA) [id number] 16:21:00 Test Item Value Reference Range Interpretation Comments GLUBED (test code = GLUBED) 101 MG/DL 70-105 N [id number] 11:30:00 Test Item Value Reference Range Interpretation Comments GLUBED (test code = GLUBED) 146 MG/DL 70-105 H CBC W/AUTO [id number] 08:33:00 Test Item Value Reference Range Interpretation Comments WHITE BLOOD CELL (test code = 10.1 x10 3/uL 3.2-11.5 N WBC) RED BLOOD CELL (test code = 3.54 x10(6)/m 3.70-5.10 L RBC) HEMOGLOBIN (test code = HGB) 11.4 g/dL 12.0-15.0 L HEMATOCRIT (test code = HCT) 33.9 % 35.7-44.8 L MEAN CELL VOLUME (test code = 96 fL 80-100 N MCV) MEAN CELL HGB (test code = MCH) 32.2 pg 26.2-33.8 N MEAN CELL HGB CONCENTRATION 33.6 g/dL 30.0-34.0 N (test code = MCHC) RED CELL DISTRIBUTION WIDTH 12.8 % 11.3-14.5 N (test code = RDW) PLATELET COUNT (test code = 272 x10 3/uL 130-408 N PLT) MEAN PLATELET VOLUME (test code 9.9 fL 8.6-12.6 N = MPV) WBC [id number] 08:33:00 Test Item Value Reference Range Interpretation Comments TOTAL CELLS COUNTED (test code = 100 #CELLS TCC) SEGMENTED NEUTROPHILS (test code 76 % 43-65 H = SEG) BAND NEUTROPHIL (test code = 10 % 0-1 H BAND) LYMPHOCYTE (test code = LYMPH) 4 % 20.5-45.5 L MONOCYTE (test code = MON) 10 % 5.5-11.7 N BAND ABSOLUTE (test code = 1.01 10 3/uL 0.00-0.70 H BAND#) NEUTROPHIL ABSOLUTE (test code = 7.68 10 3/uL 1.6-7.2 H SEG#) LYMPH ABSOLUTE (test code = 0.4 10 3/uL 1.1-2.7 L LYMPH#) ATYPICAL LYMPH ABSOLUTE (test 0.00 10 3/uL 0.00-0.00 N code = ALYMPH#) MONOCYTE ABSOLUTE (test code = 1.01 10 3/uL 0.3-0.8 H MON#) BASOPHIL ABSOLUTE (test code = 0.00 10 3/uL 0.00-0.1 N BASO#) EOSINOPHIL ABSOLUTE (test code = 0.00 10 3/uL 0.00-0.50 N EOS#) METAMYELOCYTE ABSOLUTE (test 0.00 10 3/uL 0.00-0.00 N code = META#) MYELOCYTE ABSOLUTE (test code = 0.00 10 3/uL 0.00-0.00 N MYELO#) PROMYELOCYTE ABSOLUTE (test code 0.00 10 3/uL 0.00-0.00 N = PROM#) BLASTS ABSOLUTE (test code = 0.00 10 3/uL 0.00-0.00 N BLAST#) OTHER CELLS ABSOLUTE (test code 0.00 10 3/uL 0.00-0.00 N = OCT#) TOXIC GRANULATION (test code = 1+ NONE SEEN A TOX) RBC MORPHOLOGY COMMENT (test Normal NORMAL code = MOC) PLATELET MORPHOLOGY (test code = NORMAL NORMAL PLTMORPH) [id number] 08:10:00 Test Item Value Reference Range Interpretation Comments MAGNESIUM (test code = MAG) 1.9 mg/dl 1.8-2.5 N BASIC METABOLIC [id number] 08:09:00 Test Item Value Reference Range Interpretation Comments SODIUM (test code 138 mmol/L 135-145 N = NA) POTASSIUM (test 2.5 mmol/L 3.6-5.0 LL Critical Sindi ue code = K) reported toFirs t Name:EWA Brice Name:[facility] READ BACK AND VERIFIEDby [email or web address], on 05/08/20, @ 080 9. CHLORIDE (test 99 mmol/L 101-111 L code = CL) CARBON DIOXIDE 28 mmol/L 21-31 N (test code = CO2) GLUCOSE (test code 113 mg/dl 70-100 H = GLU) BLOOD UREA < 5 mg/dl 6-20 L NITROGEN (test code = BUN) GLOMERULAR >=60 max >60 The estimated FILTRATION RATE estimate glomerular (test code = GFR) filtration rate is computed usingpatient ra ce, age (>18), sex, and serum creatinin e. If anyof the neede d data elements a re missing the Laboratory jennifer ot compute an estimation of t he glomerular filtration rate . CREATININE (test 0.44 mg/dL 0.44-1.03 N code = CREAT) CALCIUM (test code 8.5 mg/dL 8.5-10.5 N = CA) CBC W/AUTO [id number] 07:55:00 Test Item Value Reference Range Interpretation Comments WHITE BLOOD CELL (test code = 10.1 x10 3/uL 3.2-11.5 N WBC) RED BLOOD CELL (test code = 3.54 x10(6)/m 3.70-5.10 L RBC) HEMOGLOBIN (test code = HGB) 11.4 g/dL 12.0-15.0 L HEMATOCRIT (test code = HCT) 33.9 % 35.7-44.8 L MEAN CELL VOLUME (test code = 96 fL 80-100 N MCV) MEAN CELL HGB (test code = MCH) 32.2 pg 26.2-33.8 N MEAN CELL HGB CONCENTRATION 33.6 g/dL 30.0-34.0 N (test code = MCHC) RED CELL DISTRIBUTION WIDTH 12.8 % 11.3-14.5 N (test code = RDW) PLATELET COUNT (test code = 272 x10 3/uL 130-408 N PLT) MEAN PLATELET VOLUME (test code 9.9 fL 8.6-12.6 N = MPV) WBC [id number] 07:55:00 Test Item Value Reference Range Interpretation Comments TOTAL CELLS COUNTED (test code = TCC) #CELLS RBC MORPHOLOGY COMMENT (test code = NORMAL MOC) PLATELET MORPHOLOGY (test code = NORMAL PLTMORPH) CBC W/AUTO [id number] 07:55:00 Test Item Value Reference Range Interpretation Comments WHITE BLOOD CELL (test code = 10.1 x10 3/uL 3.2-11.5 N WBC) RED BLOOD CELL (test code = 3.54 x10(6)/m 3.70-5.10 L RBC) HEMOGLOBIN (test code = HGB) 11.4 g/dL 12.0-15.0 L HEMATOCRIT (test code = HCT) 33.9 % 35.7-44.8 L MEAN CELL VOLUME (test code = 96 fL 80-100 N MCV) MEAN CELL HGB (test code = MCH) 32.2 pg 26.2-33.8 N MEAN CELL HGB CONCENTRATION 33.6 g/dL 30.0-34.0 N (test code = MCHC) RED CELL DISTRIBUTION WIDTH 12.8 % 11.3-14.5 N (test code = RDW) PLATELET COUNT (test code = 272 x10 3/uL 130-408 N PLT) MEAN PLATELET VOLUME (test code 9.9 fL 8.6-12.6 N = MPV) WBC [id number] 07:55:00 Test Item Value Reference Range Interpretation Comments TOTAL CELLS COUNTED (test code = TCC) #CELLS RBC MORPHOLOGY COMMENT (test code = NORMAL MOC) PLATELET MORPHOLOGY (test code = NORMAL PLTMORPH) CBC W/AUTO [id number] 07:52:00 Test Item Value Reference Range Interpretation Comments WHITE BLOOD CELL (test code = 10.1 x10 3/uL 3.2-11.5 N WBC) RED BLOOD CELL (test code = 3.54 x10(6)/m 3.70-5.10 L RBC) HEMOGLOBIN (test code = HGB) 11.4 g/dL 12.0-15.0 L HEMATOCRIT (test code = HCT) 33.9 % 35.7-44.8 L MEAN CELL VOLUME (test code = 96 fL 80-100 N MCV) MEAN CELL HGB (test code = MCH) 32.2 pg 26.2-33.8 N MEAN CELL HGB CONCENTRATION 33.6 g/dL 30.0-34.0 N (test code = MCHC) RED CELL DISTRIBUTION WIDTH % 11.3-14.5 (test code = RDW) PLATELET COUNT (test code = x10 3/uL 130-408 PLT) MEAN PLATELET VOLUME (test code 9.9 fL 8.6-12.6 N = MPV) NEUTROPHIL % (test code = NT%) % 40.0-70.0 LYMPHOCYTE % (test code = LY%) % 20-40 MONOCYTE % (test code = MO%) % 1-10 EOSINOPHIL % (test code = EO%) % 0.0-5.0 BASOPHIL % (test code = BA%) % 0.0-1.0 NUCLEATED RBC % (test code = % 0.0-0.9 NRBC%) NEUTROPHIL # (test code = NT#) x10 3/uL 1.6-7.2 LYMPHOCYTE # (test code = LY#) x10 3/uL 1.1-2.7 MONOCYTE # (test code = MO#) x10 3/uL 0.3-0.8 EOSINOPHIL # (test code = EO#) x10 3/uL 0.0-0.5 [id number] 05:44:00 Test Item Value Reference Range Interpretation Comments GLUBED (test code = GLUBED) 110 MG/DL 70-105 H VITAMIN D [id number] 22:25:00 Test Item Value Reference Range Interpretation Comments VITAMIN D 25-HYDROXY 41 ng/ml 30-100 N Interpr etive Data :Vit D (test code = VITD25) 25 Hydr oxy Vit D Status Vit OH Vit D Conc Range(ng/m L) Deficient < 20 Insufficient 20 - < 3 0 Sufficient 30 - 10 0 Upper Safety Limit > 100 [id number] 20:49:00 Test Item Value Reference Range Interpretation Comments GLUBED (test code = GLUBED) 149 MG/DL 70-105 H [id number] 16:58:00 Test Item Value Reference Range Interpretation Comments GLUBED (test code = GLUBED) 118 MG/DL 70-105 H THYROID REFLEX TO [id number] 12:37:00 Test Item Value Reference Range Interpretation Comments THYROID REFLEX TO FT4 (test code 1.180 uIU/ml 0.450-5.330 N = TSHREFLEX) [id number] 11:24:00 Test Item Value Reference Range Interpretation Comments GLUBED (test code = GLUBED) 120 MG/DL 70-105 H FOLIC [id number] 11:12:00 Test Item Value Reference Range Interpretation Comments FOLIC ACID (test code = FOL) 14.29 ng/ml 6.59-20.0 N [id number] 11:06:00 Test Item Value Reference Range Interpretation Comments FERRITIN (test code = SHANTELLE) 247 ng/mL 11-307 N - XR SMALL [id number] 10:49:00 [facility] [place] : 1955 Sex: FPatient Name: LENA IRWINRA Mata Unit No: [id number] EXAMS: CPT: [id number] XR SMALL BOWEL 87590 SMALL BOWEL SERIES: Comparison: CT abdomen and pelvis of TECHNIQUE:The patient was given water-soluble Gastrografin contrast. A total of 10 images were exposed with 0.6 minutes of fluoroscopy time and total radiation dose of10.973 mGy. FINDINGS: The preliminary KUB demonstrates surgical clips overlying the gallbladder fossa, normal bowel gas pattern, and surgical clips overlying the stomach compatible with prior surgery. The small bowel loops were normal in caliber. No evidence of small bowel obstruction. No abnormal mass-effect was seen upon the small bowel loops. Small bowel transit time was one hour. Spot films of the terminal ileal region were unremarkable. IMPRESSION: Normal small bowel series. at 1049 Reported and signed by: Joe Guzman MD CC: Desmond Vazquez MD; Rhett Fry MD; Undefined Provider Technologist: Malou Coto Fluoro Time: DAP (Gy m2): Air Kerma (mGy): Trscr Dt/Tm: 05/07/2020 (1049) by:[email or web address] Orig Print D/T: S: 05/07/2020 (1052) BATCH NO: N/A Name: ALIDAYULISSA A [facility] Phys: [id number] - Desmodn Vazquez MD [address] [facility] : 1955 Age: 64 Sex: F [place], [place] [address] Loc: N.[id number] 1 Exam Date: 05/07/2020 Status: ADM IN PH: FAX: PAGE 1 Signed ReportPREALBUMIN 2020-05-07 07:47:00 Test Item Value Reference Range Interpretation Comments PREALBUMIN (test code = PREALB) 6.4 mg/dl 18-38 L [id number] 05:17:00 Test Item Value Reference Range Interpretation Comments GLUBED (test code = GLUBED) 136 MG/DL 70-105 H [id number] 20:01:00 Test Item Value Reference Range Interpretation Comments GLUBED (test code = GLUBED) 121 MG/DL 70-105 H - MRI BRAIN W/O [id number] 10:34:00 [facility] : 1955 Sex: FPatient Name: YULISSA IRWIN Unit No: [id number] EXAMS: CPT: [id number] MRI BRAIN W/O CONTRAST [id number] PROCEDURE: MRI BRAIN WITHOUT INTRAVENOUS GADOLINIUM COMPARISON: None. INDICATIONS: head trauma TECHNIQUE: A variety of imaging planes and parameters were utilized for visualization of suspected pathology. Images were performed without contrast. FINDINGS: CEREBRUM: There is a normal gyral pattern of the brain. There is mild age-appropriate cerebral volume loss. There ismild patchy periventricular white matter T2 hyperintensity. No areas of diffusion restriction are seen to indicate acute stroke. CEREBELLUM: No edema, hemorrhage, mass, acute infarction, or inappropriate atrophy. BRAINSTEM: No edema, hemorrhage, mass, acute infarction, or inappropriate atrophy. CSF SPACES: Slightly prominent. No mass or hemorrhage. SINUSES: No significant mucosal thickening or fluid. SKULL BASE: Unremarkable. Cavernous sinus and Meckel?s caves are normal. ORBITS: Unremarkable. OTHER: None. IMPRESSION: Mild, age-appropriate, cerebral volume loss with trace amount of periventricular white matter T2 hyperintensity consistent with early small vessel disease. No areas of diffusion restriction are seen to indicate acute stroke. No mass or hemorrhage. at 1034 Reported and signed by: ODILON ORANTES MD CC: Rhett Fry MD; Jay Lawson MD; Undefined Provider Technologist: Partha Foster [facility] Dt/Tm: 05/06/2020 (1034) by:ElvinAJM BATCH NO: N/A Name: YULISSA IRWIN [facility] Phys: Jay Galindo MD [address] : 1955 Age: 64 Sex: F [place], [place] [address] Loc: [id number] 1 Exam Date: 05/06/2020 Status: ADM IN PH: FAX: PAGE 1 Signed ReportBASIC METABOLIC PANEL 2020-05-06 05:04:00 Test Item Value Reference Range Interpretation Comments SODIUM (test code 133 mmol/L 135-145 L = NA) POTASSIUM (test 3.1 mmol/L 3.6-5.0 L code = K) CHLORIDE (test 96 mmol/L 101-111 L code = CL) CARBON DIOXIDE 27 mmol/L 21-31 N (test code = CO2) GLUCOSE (test code 134 mg/dl 70-100 H = GLU) BLOOD UREA 7 mg/dl 6-20 N NITROGEN (test code = BUN) GLOMERULAR >=60 max >60 The estimated FILTRATION RATE estimate glomerular (test code = GFR) filtration rate is computed usingpatient ra ce, age (>18), sex, and serum creatinin e. If anyof the neede d data elements a re missing the Laboratory jennifer ot compute an estimation of t he glomerular filtration rate . CREATININE (test 0.50 mg/dL 0.44-1.03 N code = CREAT) CALCIUM (test code 8.4 mg/dL 8.5-10.5 L = CA) [id number] 05:04:00 Test Item Value Reference Range Interpretation Comments MAGNESIUM (test code = MAG) 2.0 mg/dl 1.8-2.5 N VITAMIN [id number] 05:04:00 Test Item Value Reference Range Interpretation Comments VITAMIN B12 (test code = VITB12) 1231 pg/ml 180-914 H BASIC METABOLIC [id number] 04:44:00 Test Item Value Reference Range Interpretation Comments SODIUM (test code 133 mmol/L 135-145 L = NA) POTASSIUM (test 3.1 mmol/L 3.6-5.0 L code = K) CHLORIDE (test 96 mmol/L 101-111 L code = CL) CARBON DIOXIDE 27 mmol/L 21-31 N (test code = CO2) GLUCOSE (test code 134 mg/dl 70-100 H = GLU) BLOOD UREA 7 mg/dl 6-20 N NITROGEN (test code = BUN) GLOMERULAR >=60 max >60 The estimated FILTRATION RATE estimate glomerular (test code = GFR) filtration rate is computed usingpatient ra ce, age (>18), sex, and serum creatinin e. If anyof the neede d data elements a re missing the Laboratory jennifer ot compute an estimation of t he glomerular filtration rate . CREATININE (test 0.50 mg/dL 0.44-1.03 N code = CREAT) CALCIUM (test code 8.4 mg/dL 8.5-10.5 L = CA) [id number] 04:44:00 Test Item Value Reference Range Interpretation Comments MAGNESIUM (test code = MAG) 2.0 mg/dl 1.8-2.5 N VITAMIN [id number] 04:44:00 Test Item Value Reference Range Interpretation Comments VITAMIN B12 (test code = VITB12) pg/ml 180-914 CBC W/AUTO [id number] 04:19:00 Test Item Value Reference Range Interpretation Comments WHITE BLOOD CELL (test code = 12.6 x10 3/uL 3.2-11.5 H WBC) RED BLOOD CELL (test code = 3.89 x10(6)/m 3.70-5.10 N RBC) HEMOGLOBIN (test code = HGB) 12.8 g/dL 12.0-15.0 N HEMATOCRIT (test code = HCT) 38.1 % 35.7-44.8 N MEAN CELL VOLUME (test code = 98 fL 80-100 N MCV) MEAN CELL HGB (test code = MCH) 32.9 pg 26.2-33.8 N MEAN CELL HGB CONCENTRATION 33.6 g/dL 30.0-34.0 N (test code = MCHC) RED CELL DISTRIBUTION WIDTH 12.3 % 11.3-14.5 N (test code = RDW) PLATELET COUNT (test code = 252 x10 3/uL 130-408 N PLT) MEAN PLATELET VOLUME (test code 10.4 fL 8.6-12.6 N = MPV) NEUTROPHIL % (test code = NT%) 78.3 % 40.0-70.0 H IMMATURE GRANULOCYTE % (test 0.6 % 0.0-2.0 N code = IG%) LYMPHOCYTE % (test code = LY%) 10.1 % 20-40 L MONOCYTE % (test code = MO%) 10.6 % 1-10 H EOSINOPHIL % (test code = EO%) 0.1 % 0.0-5.0 N BASOPHIL % (test code = BA%) 0.3 % 0.0-1.0 N NUCLEATED RBC % (test code = 0.0 % 0.0-0.9 N NRBC%) NEUTROPHIL # (test code = NT#) 9.8 x10 3/uL 1.6-7.2 H LYMPHOCYTE # (test code = LY#) 1.27 x10 3/uL 1.1-2.7 N MONOCYTE # (test code = MO#) 1.3 x10 3/uL 0.3-0.8 H EOSINOPHIL # (test code = EO#) 0.0 x10 3/uL 0.0-0.5 N BASOPHIL # (test code = BA#) 0.0 x10 3/uL 0.0-0.1 N UA RFLX MICR CULT IF [id number] 18:27:00 Test Item Value Reference Range Interpretation Comments UA COLOR (test code = COLU) YELLOW YELLOW UA APPEARANCE (test code = APPU) Clear CLEAR UA GLUCOSE DIPSTICK (test code = 1+ NEGATIVE DGLUU) UA BILIRUBIN DIPSTICK (test code = NEGATIVE NEGATIVE BILU) UA KETONE DIPSTICK (test code = 2+ NEGATIVE A KETU) UA SPECIFIC GRAVITY (test code = 1.011 1.001-1.030 SGU) UA BLOOD DIPSTICK (test code = TERESA) NEGATIVE NEGATIVE UA PH DIPSTICK (test code = NORMA) 6.0 5.0-9.0 UA PROTEIN DIPSTICK (test code = 1+ NEGATIVE A PROU) UA UROBILINOGEN DIPSTICK (test code 4.0 <=1.0 A = URO) UA NITRITE DIPSTICK (test code = NEGATIVE NEGATIVE TAYLOR) UA ASCORBIC ACID DIPSTICK (test NEGATIVE code = AAU) UA LEUKOCYTE ESTERASE DIPSTICK NEGATIVE NEGATIVE (test code = LEUU) UA WBC (test code = WBCUR) 0-5 /HPF 0-5 UA RBC (test code = RBCU) 0-5 /HPF 0-5 UA EPITHELIAL CELLS (test code = RARE /LPF NONE-FEW EPIU) UA BACTERIA (test code = BACU) None /HPF NONE SEEN UA MUCUS (test code = MUCU) 1+ /LPF NONE SEEN Indication for culture: Suprapubic PainSpecimen Description: CATHETERIZED (STRAIGHT)COMPREHENSIVE METABOLIC [id number] 15:53:00 Test Item Value Reference Range Interpretation Comments SODIUM (test code = 133 mmol/L 135-145 L NA) POTASSIUM (test 3.1 mmol/L 3.6-5.0 L code = K) CHLORIDE (test code 99 mmol/L 101-111 L = CL) CARBON DIOXIDE 23 mmol/L 21-31 N (test code = CO2) GLUCOSE (test code 114 mg/dl 70-100 H = GLU) BLOOD UREA NITROGEN 14 mg/dl 6-20 N (test code = BUN) GLOMERULAR >=60 max >60 The estimated FILTRATION RATE estimate glomerular (test code = GFR) filtration rate is computed usingpatient ra ce, age (>18), sex, and serum creatinin e. If anyof the ne eded data elements a re missing the Laboratory jennifer ot compute an estimation of t he glomerular filtration rate . CREATININE (test 0.52 mg/dL 0.44-1.03 N code = CREAT) TOTAL PROTEIN (test g/dL 6.7-8.2 code = PROT) ALBUMIN (test code g/dL 3.2-5.5 = ALB) CALCIUM (test code 7.9 mg/dL 8.5-10.5 L = CA) BILIRUBIN TOTAL mg/dL 0.2-1.3 (test code = BILT) SGOT/AST (test code U/L 10-42 = AST) SGPT/ALT (test code U/L 10-60 = ALT) ALKALINE U/L 42-121 PHOSPHATASE (test code = ALKP) COMPREHENSIVE METABOLIC [id number] 15:53:00 Test Item Value Reference Range Interpretation Comments SODIUM (test code = 133 mmol/L 135-145 L NA) POTASSIUM (test 3.1 mmol/L 3.6-5.0 L code = K) CHLORIDE (test code 99 mmol/L 101-111 L = CL) CARBON DIOXIDE 23 mmol/L 21-31 N (test code = CO2) GLUCOSE (test code 114 mg/dl 70-100 H = GLU) BLOOD UREA NITROGEN 14 mg/dl 6-20 N (test code = BUN) GLOMERULAR >=60 max >60 The estimated FILTRATION RATE estimate glomerular (test code = GFR) filtration rate is computed usingpatient ra ce, age (>18), sex, and serum creatinin e. If anyof the ne eded data elements a re missing the Laboratory jennifer ot compute an estimation of t he glomerular filtration rate . CREATININE (test 0.52 mg/dL 0.44-1.03 N code = CREAT) TOTAL PROTEIN (test 5.7 g/dL 6.7-8.2 L code = PROT) ALBUMIN (test code 2.7 g/dL 3.2-5.5 L = ALB) CALCIUM (test code 7.9 mg/dL 8.5-10.5 L = CA) BILIRUBIN TOTAL 1.00 mg/dL 0.2-1.3 N (test code = BILT) SGOT/AST (test code 23 U/L 10-42 N = AST) SGPT/ALT (test code 28 U/L 10-60 N = ALT) ALKALINE 91 U/L 42-121 N PHOSPHATASE (test code = ALKP) - XR ABDOMEN [id number] 15:21:00 [facility] 1955 Sex: FPatient Name: YULISSA IRWIN Unit No: [id number] EXAMS: CPT: [id number] XR ABDOMEN 1V [id number] History: constipation COMPARISON STUDY: 04/02/2020 Abdomen 1 view FINDINGS: A mild amount of stool is present in colon. Mild nonspecific small bowel dilatation is present. Surgical clips are present in the right upper quadrant. No free pneumatosis or portal venous gas is present. No suspicious urinary tract calcifications are seen. The lung bases are clear. IMPRESSION: 1. A mild amount of stool is present in colon. 2. Mild nonspecific small bowel dilatation is present. ElectronicallySigned by Anderson Silveiro MD on 05/05/2020 at 1521 Reported and signed by: Anderson Silverio MD CC: Rhett Fry MD; Undefined Provider Technologist: MINA Ochoa Time: DAP (Gy m2): Air Kerma (mGy): Trscr Dt/Tm: 05/05/2020 (1521) by:[email or web address] Orig Print D/T: S: 05/05/2020 (152) BATCH NO: N/A Name: YULISSA IRWIN [facility] Phys: Rhett Altamirano [address] : 1955 Age: 64 Sex: F [place] [address] Loc: N.6032 1 Exam Date: 05/05/2020 Status: ADM IN PH: FAX: PAGE 1 Signed Report- CT HEAD/BRAIN W/O [id number] 13:49:00[facility] : 1955 Sex: FPatient Name: YULISSA IRWIN Unit No: [id number] EXAMS: CPT: [id number] CT HEAD/BRAIN W/O CONT 20634 CT HEAD WITHOUT CONTRAST TECHNIQUE: Contiguous noncontrast axial images acquired through the head from skull base to vertex.All CT scans at this facility are performed using dose optimization techniques including the following: Automated exposure control HISTORY: SUDDEN NEURO CHANGES COMPARISON:None FINDINGS: No acute intracranial hemorrhage, mass effect, midline shift, hydrocephalus or loss of renee-white differentiation. Prominence of the ventricles and sulci secondary to age-related volume loss. Orbits unremarkable. Included sinuses and mastoid air cells are clear. No gross osseous pathology present. IMPRESSION: No acute intracranial a bnormality. at 1349 Reported and signed by: Gayatri Flynn MD CC: Rhett Fry MD; Undefined Provider Technologist: Shanon Hough CTDI: 44.73 DLP: 717.91 Trscr Dt/Tm: 05/05/2020 (1349) by:[email or web address] Orig Print D/T: S: 05/05/2020 (9106) BATCH NO: N/A Name: YULISSA IRWIN [facility] Phys: Rhett Alt[address] 1955 Age: 64 Sex: F [place] [address] Loc:N.6032 1 Exam Date: 05/05/2020 Status: ADM IN PH: FAX: PAGE 1 Signed [id number] - GLYCOSYLATED [id number] 07:34:00 Test Item Value Reference Range Interpretation Comments GLYCOSYLATED HEMOGLOBIN 5.4 % 4.0-6.0 N Inte rpretive Data: (HA1C) (test code = Caution should be GLYHGB) exercised when interpreting th e HgbA1c in patients wit h hemolytic anemi a, iron deficiency and when the total hemoglobi n is < 9g/dL, due to a decrease in ave rage age of red blood ce lls CBC W/AUTO [id number] 06:42:00 Test Item Value Reference Range Interpretation Comments WHITE BLOOD CELL (test code = 9.7 x10 3/uL 3.2-11.5 N WBC) RED BLOOD CELL (test code = 4.01 x10(6)/m 3.70-5.10 N RBC) HEMOGLOBIN (test code = HGB) 12.8 g/dL 12.0-15.0 N HEMATOCRIT (test code = HCT) 40.0 % 35.7-44.8 N MEAN CELL VOLUME (test code = 100 fL 80-100 N MCV) MEAN CELL HGB (test code = MCH) 31.9 pg 26.2-33.8 N MEAN CELL HGB CONCENTRATION 32.0 g/dL 30.0-34.0 N (test code = MCHC) RED CELL DISTRIBUTION WIDTH 12.6 % 11.3-14.5 N (test code = RDW) PLATELET COUNT (test code = 219 x10 3/uL 130-408 N PLT) MEAN PLATELET VOLUME (test code 10.8 fL 8.6-12.6 N = MPV) WBC [id number] 06:42:00 Test Item Value Reference Range Interpretation Comments TOTAL CELLS COUNTED (test code = 100 #CELLS TCC) SEGMENTED NEUTROPHILS (test code 84 % 43-65 H = SEG) BAND NEUTROPHIL (test code = 7 % 0-1 H BAND) LYMPHOCYTE (test code = LYMPH) 3 % 20.5-45.5 L MONOCYTE (test code = MON) 6 % 5.5-11.7 N BAND ABSOLUTE (test code = 0.68 10 3/uL 0.00-0.70 N BAND#) NEUTROPHIL ABSOLUTE (test code = 8.15 10 3/uL 1.6-7.2 H SEG#) LYMPH ABSOLUTE (test code = 0.3 10 3/uL 1.1-2.7 L LYMPH#) ATYPICAL LYMPH ABSOLUTE (test 0.00 10 3/uL 0.00-0.00 N code = ALYMPH#) MONOCYTE ABSOLUTE (test code = 0.58 10 3/uL 0.3-0.8 N MON#) BASOPHIL ABSOLUTE (test code = 0.00 10 3/uL 0.00-0.1 N BASO#) EOSINOPHIL ABSOLUTE (test code = 0.00 10 3/uL 0.00-0.50 N EOS#) METAMYELOCYTE ABSOLUTE (test 0.00 10 3/uL 0.00-0.00 N code = META#) MYELOCYTE ABSOLUTE (test code = 0.00 10 3/uL 0.00-0.00 N MYELO#) PROMYELOCYTE ABSOLUTE (test code 0.00 10 3/uL 0.00-0.00 N = PROM#) BLASTS ABSOLUTE (test code = 0.00 10 3/uL 0.00-0.00 N BLAST#) OTHER CELLS ABSOLUTE (test code 0.00 10 3/uL 0.00-0.00 N = OCT#) RBC MORPHOLOGY COMMENT (test Normal NORMAL code = MOC) PLATELET MORPHOLOGY (test code = NORMAL NORMAL PLTMORPH) [id number] 05:31:00 Test Item Value Reference Range Interpretation Comments GLUBED (test code = GLUBED) 114 MG/DL 70-105 H CBC W/AUTO [id number] 05:00:00 Test Item Value Reference Range Interpretation Comments WHITE BLOOD CELL (test code = 9.7 x10 3/uL 3.2-11.5 N WBC) RED BLOOD CELL (test code = 4.01 x10(6)/m 3.70-5.10 N RBC) HEMOGLOBIN (test code = HGB) 12.8 g/dL 12.0-15.0 N HEMATOCRIT (test code = HCT) 40.0 % 35.7-44.8 N MEAN CELL VOLUME (test code = 100 fL 80-100 N MCV) MEAN CELL HGB (test code = MCH) 31.9 pg 26.2-33.8 N MEAN CELL HGB CONCENTRATION 32.0 g/dL 30.0-34.0 N (test code = MCHC) RED CELL DISTRIBUTION WIDTH 12.6 % 11.3-14.5 N (test code = RDW) PLATELET COUNT (test code = 219 x10 3/uL 130-408 N PLT) MEAN PLATELET VOLUME (test code 10.8 fL 8.6-12.6 N = MPV) WBC [id number] 05:00:00 Test Item Value Reference Range Interpretation Comments TOTAL CELLS COUNTED (test code = TCC) #CELLS RBC MORPHOLOGY COMMENT (test code = NORMAL MOC) PLATELET MORPHOLOGY (test code = NORMAL PLTMORPH) CBC W/AUTO [id number] 05:00:00 Test Item Value Reference Range Interpretation Comments WHITE BLOOD CELL (test code = 9.7 x10 3/uL 3.2-11.5 N WBC) RED BLOOD CELL (test code = 4.01 x10(6)/m 3.70-5.10 N RBC) HEMOGLOBIN (test code = HGB) 12.8 g/dL 12.0-15.0 N HEMATOCRIT (test code = HCT) 40.0 % 35.7-44.8 N MEAN CELL VOLUME (test code = 100 fL 80-100 N MCV) MEAN CELL HGB (test code = MCH) 31.9 pg 26.2-33.8 N MEAN CELL HGB CONCENTRATION 32.0 g/dL 30.0-34.0 N (test code = MCHC) RED CELL DISTRIBUTION WIDTH 12.6 % 11.3-14.5 N (test code = RDW) PLATELET COUNT (test code = 219 x10 3/uL 130-408 N PLT) MEAN PLATELET VOLUME (test code 10.8 fL 8.6-12.6 N = MPV) WBC [id number] 05:00:00 Test Item Value Reference Range Interpretation Comments TOTAL CELLS COUNTED (test code = TCC) #CELLS RBC MORPHOLOGY COMMENT (test code = NORMAL MOC) PLATELET MORPHOLOGY (test code = NORMAL PLTMORPH) [id number] 23:32:00 Test Item Value Reference Range Interpretation Comments GLUBED (test code = GLUBED) 115 MG/DL 70-105 H - XR CHEST 2 [id number] 14:08:00 [facility] : 1955 Sex: FPatient Name: YULISSA IRWIN Unit No: [id number] EXAMS: CPT: [id number] XR CHEST 2 V 68376 COMPARISON: none HISTORY: Shortness of breath C apsule comparison: CT of 05/02/2020, MRCP of 05/04/2020 FINDINGS: Lungs are clear. Heart size normal, without vascular congestion. Bony thorax appears unremarkable. Minimal posterior costophrenic angle blunting. CONCLUSION: Trace bilateral pleural effusions. at 1408 Reported and signed by: Joe Guzman MD CC: Rhett Fry MD;Undefined Provider Technologist: Terrell Ochoa Time: DAP (Gy m2): Air Kerma (mGy): Trscr Dt/Tm: 05/04/2020 (1408) by:[email or web address] Orig Print D/T: S: 05/04/2020 (1411) BATCH NO: N/A Name: YULISSA IRWIN [facility] Phys: Rhett Ocas[address] : 1955 Age: 64 Sex: F [place], [place] [address] Loc: N.6032 1 Exam Date: 05/04/2020 Status: ADM IN PH: FAX: PAGE 1 Signed Report- MRI MRCP 2020-05-04 12:39:00 [facility] : 1955 Sex: FPatient Name: YULISSA IRWIN Unit No: [id number] EXAMS: CPT: [id number] MRI MRCP 43170 MRCP/MRI ABDOMEN Clinical history:pancreatits sp aspen Technique: Noncontrast MRI abdomen was performed. 3-D MRCP images were obtained with 3-D reformations. Findings:Reference is made to recent CT of May 02, 2020. There is postsurgical changes with clips in the gallbladder fossa. There is trace bilateral pleural fluid with adjacent bibasilar atelectasis. There is trace perihepatic a scites. The liver is mildly fatty infiltrated. There is a few incidentalscattered bilateral renal cysts. The spleen, adrenal glands, are unremarkable. There is mild diffuse pancreas edema and soft tissue stranding in the peripancreatic soft tissues consistent with acute pancreatitis. The common bile duct is dilated at the dawood hepatis measuring 10 mm transverse. The cystic duct remnant measures up to 24 mm in length. There is a smooth transition point at the ampulla with no visible intraductal stone. The pancreas duct is currently measuring upper limits normal at 2 mm. No pancreas divisum. No visible discrete pancreas mass or pseudocyst is visible at this time. IMPRESSION: 1. Mild dilatation of the common bile duct and intrahepatic hepatic biliary ducts with a smooth transition point at the ampulla. No visible intraductal stone 2. Evidence of acute pancreatitis again noted. No visible pancreas mass or pseudocyst. 3. Fattyliver 4. Trace bilateral pleural fluid. Trace perihepatic ascites. at 1239 Reported and signed by: Leatha Fisher MD CC: Desmond Vazquez MD; Rhett Fry MD; Undefined Provider Technologist: Bela Miranda [facility] Dt/Tm: 05/04/2020 (9302) by:[email or web address] Orig Print D/T: S: 05/04/2020 (9086) BATCH NO: N/A Name: YULISSA IRWIN [facility] Phys: [facility]. Desmond Vazquez MD [address] [facility] : 1955 Age: 64 Sex: F [place] [address] Loc: N.6032 1 Exam Date: 05/04/2020 Status: ADM IN PH: FAX: PAGE 1 Signed ReportCBC W/AUTO [id number] 09:51:00 Test Item Value Reference Range Interpretation Comments WHITE BLOOD CELL (test code = 9.4 x10 3/uL 3.2-11.5 N WBC) RED BLOOD CELL (test code = 4.05 x10(6)/m 3.70-5.10 N RBC) HEMOGLOBIN (test code = HGB) 13.1 g/dL 12.0-15.0 N HEMATOCRIT (test code = HCT) 40.7 % 35.7-44.8 N MEAN CELL VOLUME (test code = 101 fL 80-100 H MCV) MEAN CELL HGB (test code = MCH) 32.3 pg 26.2-33.8 N MEAN CELL HGB CONCENTRATION 32.2 g/dL 30.0-34.0 N (test code = MCHC) RED CELL DISTRIBUTION WIDTH 13.0 % 11.3-14.5 N (test code = RDW) PLATELET COUNT (test code = 222 x10 3/uL 130-408 N PLT) MEAN PLATELET VOLUME (test code 10.6 fL 8.6-12.6 N = MPV) WBC [id number] 09:51:00 Test Item Value Reference Range Interpretation Comments TOTAL CELLS COUNTED (test 100 #CELLS code = TCC) SEGMENTED NEUTROPHILS 71 % 43-65 H (test code = SEG) BAND NEUTROPHIL (test 14 % 0-1 H code = BAND) LYMPHOCYTE (test code = 14 % 20.5-45.5 L LYMPH) MONOCYTE (test code = 1 % 5.5-11.7 L MON) BAND ABSOLUTE (test code 1.32 10 3/uL 0.00-0.70 H = BAND#) NEUTROPHIL ABSOLUTE (test 6.67 10 3/uL 1.6-7.2 N code = SEG#) LYMPH ABSOLUTE (test code 1.3 10 3/uL 1.1-2.7 N = LYMPH#) ATYPICAL LYMPH ABSOLUTE 0.00 10 3/uL 0.00-0.00 N (test code = ALYMPH#) MONOCYTE ABSOLUTE (test 0.09 10 3/uL 0.3-0.8 L code = MON#) BASOPHIL ABSOLUTE (test 0.00 10 3/uL 0.00-0.1 N code = BASO#) EOSINOPHIL ABSOLUTE (test 0.00 10 3/uL 0.00-0.50 N code = EOS#) METAMYELOCYTE ABSOLUTE 0.00 10 3/uL 0.00-0.00 N (test code = META#) MYELOCYTE ABSOLUTE (test 0.00 10 3/uL 0.00-0.00 N code = MYELO#) PROMYELOCYTE ABSOLUTE 0.00 10 3/uL 0.00-0.00 N (test code = PROM#) BLASTS ABSOLUTE (test 0.00 10 3/uL 0.00-0.00 N code = BLAST#) OTHER CELLS ABSOLUTE 0.00 10 3/uL 0.00-0.00 N (test code = OCT#) MACROCYTOSIS (test code = 1+ NONE SEEN A MACR) RBC MORPHOLOGY COMMENT See comment NORMAL (test code = MOC) PLATELET MORPHOLOGY (test LARGE PLATELETS SEEN NORMAL code = PLTMORPH) BASIC METABOLIC [id number] 08:08:00 Test Item Value Reference Range Interpretation Comments SODIUM (test code 134 mmol/L 135-145 L = NA) POTASSIUM (test 3.3 mmol/L 3.6-5.0 L code = K) CHLORIDE (test 100 mmol/L 101-111 L code = CL) CARBON DIOXIDE 25 mmol/L 21-31 N (test code = CO2) GLUCOSE (test code 130 mg/dl 70-100 H = GLU) BLOOD UREA 15 mg/dl 6-20 N NITROGEN (test code = BUN) GLOMERULAR >=60 max >60 The estimated FILTRATION RATE estimate glomerular (test code = GFR) filtration rate is computed usingpatient ra ce, age (>18), sex, and serum creatinin e. If anyof the neede d data elements a re missing the Laboratory jennifer ot compute an estimation of t he glomerular filtration rate . CREATININE (test 0.47 mg/dL 0.44-1.03 N code = CREAT) CALCIUM (test code 8.4 mg/dL 8.5-10.5 L = CA) LIVER FUNCTION [id number] 08:08:00 Test Item Value Reference Range Interpretation Comments TOTAL PROTEIN (test code = PROT) 5.4 g/dL 6.7-8.2 L ALBUMIN (test code = ALB) 2.9 g/dL 3.2-5.5 L BILIRUBIN TOTAL (test code = BILT) 1.00 mg/dL 0.2-1.3 N BILIRUBIN DIRECT (test code = 0.3 mg/dL 0.00-0.20 H BILD) SGOT/AST (test code = AST) 33 U/L 10-42 N SGPT/ALT (test code = ALT) 38 U/L 10-60 N ALKALINE PHOSPHATASE (test code = 87 U/L 42-121 N ALKP) [id number] 08:08:00 Test Item Value Reference Range Interpretation Comments LIPASE (test code = LIP) 28 IU/L 22-51 N [id number] 08:08:00 Test Item Value Reference Range Interpretation Comments MAGNESIUM (test code = MAG) 2.1 mg/dl 1.8-2.5 N CBC W/AUTO [id number] 07:42:00 Test Item Value Reference Range Interpretation Comments WHITE BLOOD CELL (test code = 9.4 x10 3/uL 3.2-11.5 N WBC) RED BLOOD CELL (test code = 4.05 x10(6)/m 3.70-5.10 N RBC) HEMOGLOBIN (test code = HGB) 13.1 g/dL 12.0-15.0 N HEMATOCRIT (test code = HCT) 40.7 % 35.7-44.8 N MEAN CELL VOLUME (test code = 101 fL 80-100 H MCV) MEAN CELL HGB (test code = MCH) 32.3 pg 26.2-33.8 N MEAN CELL HGB CONCENTRATION 32.2 g/dL 30.0-34.0 N (test code = MCHC) RED CELL DISTRIBUTION WIDTH 13.0 % 11.3-14.5 N (test code = RDW) PLATELET COUNT (test code = 222 x10 3/uL 130-408 N PLT) MEAN PLATELET VOLUME (test code 10.6 fL 8.6-12.6 N = MPV) WBC [id number] 07:42:00 Test Item Value Reference Range Interpretation Comments TOTAL CELLS COUNTED (test code = TCC) #CELLS RBC MORPHOLOGY COMMENT (test code = NORMAL MOC) PLATELET MORPHOLOGY (test code = NORMAL PLTMORPH) CBC W/AUTO [id number] 07:42:00 Test Item Value Reference Range Interpretation Comments WHITE BLOOD CELL (test code = 9.4 x10 3/uL 3.2-11.5 N WBC) RED BLOOD CELL (test code = 4.05 x10(6)/m 3.70-5.10 N RBC) HEMOGLOBIN (test code = HGB) 13.1 g/dL 12.0-15.0 N HEMATOCRIT (test code = HCT) 40.7 % 35.7-44.8 N MEAN CELL VOLUME (test code = 101 fL 80-100 H MCV) MEAN CELL HGB (test code = MCH) 32.3 pg 26.2-33.8 N MEAN CELL HGB CONCENTRATION 32.2 g/dL 30.0-34.0 N (test code = MCHC) RED CELL DISTRIBUTION WIDTH 13.0 % 11.3-14.5 N (test code = RDW) PLATELET COUNT (test code = 222 x10 3/uL 130-408 N PLT) MEAN PLATELET VOLUME (test code 10.6 fL 8.6-12.6 N = MPV) WBC [id number] 07:42:00 Test Item Value Reference Range Interpretation Comments TOTAL CELLS COUNTED (test code = TCC) #CELLS RBC MORPHOLOGY COMMENT (test code = NORMAL MOC) PLATELET MORPHOLOGY (test code = NORMAL PLTMORPH) CBC W/AUTO [id number] 07:39:00 Test Item Value Reference Range Interpretation Comments WHITE BLOOD CELL (test code = 9.4 x10 3/uL 3.2-11.5 N WBC) RED BLOOD CELL (test code = 4.05 x10(6)/m 3.70-5.10 N RBC) HEMOGLOBIN (test code = HGB) 13.1 g/dL 12.0-15.0 N HEMATOCRIT (test code = HCT) 40.7 % 35.7-44.8 N MEAN CELL VOLUME (test code = 101 fL 80-100 H MCV) MEAN CELL HGB (test code = MCH) 32.3 pg 26.2-33.8 N MEAN CELL HGB CONCENTRATION 32.2 g/dL 30.0-34.0 N (test code = MCHC) RED CELL DISTRIBUTION WIDTH % 11.3-14.5 (test code = RDW) PLATELET COUNT (test code = x10 3/uL 130-408 PLT) MEAN PLATELET VOLUME (test code 10.6 fL 8.6-12.6 N = MPV) NEUTROPHIL % (test code = NT%) % 40.0-70.0 LYMPHOCYTE % (test code = LY%) % 20-40 MONOCYTE % (test code = MO%) % 1-10 EOSINOPHIL % (test code = EO%) % 0.0-5.0 BASOPHIL % (test code = BA%) % 0.0-1.0 NUCLEATED RBC % (test code = % 0.0-0.9 NRBC%) NEUTROPHIL # (test code = NT#) x10 3/uL 1.6-7.2 LYMPHOCYTE # (test code = LY#) x10 3/uL 1.1-2.7 MONOCYTE # (test code = MO#) x10 3/uL 0.3-0.8 EOSINOPHIL # (test code = EO#) x10 3/uL 0.0-0.5 HIGH SENSITIVITY [id number] 16:25:00 Test Item Value Reference Range Interpretation Comments HIGH SENSITIVITY CRP (test code 30.530 mg/dl 0.000-0.747 H = CRPHS) BASIC METABOLIC [id number] 05:58:00 Test Item Value Reference Range Interpretation Comments SODIUM (test code 137 mmol/L 135-145 N = NA) POTASSIUM (test 3.7 mmol/L 3.6-5.0 N code = K) CHLORIDE (test 105 mmol/L 101-111 N code = CL) CARBON DIOXIDE 21 mmol/L 21-31 N (test code = CO2) GLUCOSE (test code 152 mg/dl 70-100 H = GLU) BLOOD UREA 12 mg/dl 6-20 N NITROGEN (test code = BUN) GLOMERULAR >=60 max >60 The estimated FILTRATION RATE estimate glomerular (test code = GFR) filtration rate is computed usingpatient ra ce, age (>18), sex, and serum creatinin e. If anyof the neede d data elements a re missing the Laboratory jennifer ot compute an estimation of t he glomerular filtration rate . CREATININE (test 0.56 mg/dL 0.44-1.03 N code = CREAT) CALCIUM (test code 9.0 mg/dL 8.5-10.5 N = CA) [id number] 05:58:00 Test Item Value Reference Range Interpretation Comments LIPASE (test code = LIP) 137 IU/L 22-51 H [id number] 05:58:00 Test Item Value Reference Range Interpretation Comments PHOSPHOROUS (test code = PHOS) 2.1 mg/dl 2.5-4.6 L [id number] 05:58:00 Test Item Value Reference Range Interpretation Comments MAGNESIUM (test code = MAG) 1.7 mg/dl 1.8-2.5 L CBC W/AUTO [id number] 05:40:00 Test Item Value Reference Range Interpretation Comments WHITE BLOOD CELL (test code = 9.0 x10 3/uL 3.2-11.5 N WBC) RED BLOOD CELL (test code = 4.18 x10(6)/m 3.70-5.10 N RBC) HEMOGLOBIN (test code = HGB) 13.8 g/dL 12.0-15.0 N HEMATOCRIT (test code = HCT) 41.4 % 35.7-44.8 N MEAN CELL VOLUME (test code = 99 fL 80-100 MCV) MEAN CELL HGB (test code = MCH) 33.0 pg 26.2-33.8 N MEAN CELL HGB CONCENTRATION 33.3 g/dL 30.0-34.0 N (test code = MCHC) RED CELL DISTRIBUTION WIDTH 13.2 % 11.3-14.5 N (test code = RDW) PLATELET COUNT (test code = 266 x10 3/uL 130-408 N PLT) MEAN PLATELET VOLUME (test code 10.2 fL 8.6-12.6 N = MPV) NEUTROPHIL % (test code = NT%) 83.6 % 40.0-70.0 H IMMATURE GRANULOCYTE % (test 0.3 % 0.0-2.0 N code = IG%) LYMPHOCYTE % (test code = LY%) 10.3 % 20-40 L MONOCYTE % (test code = MO%) 5.5 % 1-10 N EOSINOPHIL % (test code = EO%) 0.0 % 0.0-5.0 N BASOPHIL % (test code = BA%) 0.3 % 0.0-1.0 N NUCLEATED RBC % (test code = 0.0 % 0.0-0.9 N NRBC%) NEUTROPHIL # (test code = NT#) 7.5 x10 3/uL 1.6-7.2 H LYMPHOCYTE # (test code = LY#) 0.93 x10 3/uL 1.1-2.7 L MONOCYTE # (test code = MO#) 0.5 x10 3/uL 0.3-0.8 N EOSINOPHIL # (test code = EO#) 0.0 x10 3/uL 0.0-0.5 N BASOPHIL # (test code = BA#) 0.0 x10 3/uL 0.0-0.1 N Coronavirus 2019 nCoV [id number] 17:34:00 Test Item Value Reference Range Interpretation Comments Coronavirus 2019 Negative Negative This test h as been nCoV Bedside (test authorize d by FDA under code = [id number]) an EUA for use by[facility] laboratories. T his test has been author ized only for the detecti on ofnucleic acid from SARS-CoV-2, not for any other viruses orpathogens. Th is test is only authorized for the duration of thedeclaration that circumstances e xist justifying theauthorizatio n of emergency use o f in vitro diagnostic test sfor the detection and/o r diagnosis of CO VID-19 under Aypxztt79 4(b)(1) of the Act, 21 U.S .C 360bbb-3(b)(1), unless theauthorizatio n is terminated or r evoked sooner. This te st has been authorized by FDA under an EUA fo r use byauthorized laboratories. T his test has been author ized only for the detecti on ofnucleic acid (PCR) from SARS-CoV-2, not from any other viruses o r pathogens. This test is only authorized for the duration of thedeclaration that circumstances e xist justifying theauthorizatio n of emergency use o f in vitro diagnostic test sfor the detection and/o r diagnosis of CO VID-19 under Somuntq62 4(b)(1) of the Act, 21 U.S .C 360bbb-3(b)(1), unless theauthorizatio n is terminated or r evoked sooner. - CT ABD PELVIS [id number] 16:09:00 [facility] : 1955 Sex: FPatient Name: YULISSA IRWIN Unit No: [id number] EXAMS: CPT: [id number] CT ABD PELVIS W/CONT 71096 EXAM: CT ABDOMEN AND PELVIS WITH CONTRAST INDICATION: History of gastric bypass, abdominal pain and diarrhea for one day. COMPARISON: None. TECHNIQUE: Volumetric CT acquisition of the abdomen and pelvis after the intravenous administration of contrast. Axial, coronal and sagittal reconstructions. IV contrast:85 mL Isovue-300 GFR: 16, creatinine: 0.57 CT radiation dose optimization is achieved for this examination by the use of a CT protocol in accordance with ACR practice guidelines and adherence to knuckle strap sewer recommendations. FINDINGS: Lower thorax: Subsegmental atelectasis in the left lower lobe with elevation of left diaphragm. No pleuralor pericardial effusion. Small-sized sliding-type hiatal hernia. Liver: No focal liver abnormality. Portal vein patent. Liver size within normal limits. Gallbladder: Cholecystectomy clips in the gallbladder fossa. Biliary tree: Nondilated commonbile duct, which measures up to 13 mm in diameter, with abrupt shouldering/tapering at the level of the pancreatic head. Etiology of obstruction not identified. Spleen: Normal. Pancreas: No pancreatic duct dilation or atrophy. No discrete solid or cysticpancreatic mass. Moderate peripancreatic swelling and edema surrounding the pancreatic head and 1st and 2nd portions of the duodenum. Adrenals: Normal. Kidneys and ureters: Small fluid attenuation cyst measuring 1.6 cm in diameter at the posterior interpolar region of the right kidney. No obstructing calculus, hydronephrosis, or hydroureter. Vasculature: Few scattered atherosclerotic calcifications of the abdominal aorta, which is normal in course and caliber without significant stenosis or dilation. Lymphnodes: No pathologic adenopathy within the abdomen and pelvis based on size. Gastrointestinal tract: Colonic diverticulosis without evidence of Name: YULISSA IRWIN [facility] Phys: [id number] - [address],Elissa [facility] [address] [facility] : 1955 Age: 64 Sex: [place] [address] Loc: N.ERS Exam Date: 05/02/2020 Status: PRE ER PH: FAX: PAGE 1 Signed Report (CONTINUED) Patient Name: YULISSA IRWIN Unit No: [id number] EXAMS: CPT: [id number] CT ABD PELVIS W/CONT 51395 <Continued> acute diverticulitis. No obstruction or pneumatosis. No evidence of wall thickening. Appendix: Normal appendix. Peritoneum and retroperitoneum: No pathologic lymphadenopathy, ascites or free air. No other fluid collection. Bladder: Unremarkable for degree of distention. Reproductive organs: Uterus is absent. No cystic or solid adnexal mass. Bones: Multilevel degenerative changes. No acute or suspicious osseous abnormality. No osseous destructive lesion. Soft tissues: Normal. IMPRESSION: Moderate peripancreatic edema and swelling about the pancreatic head and surrounding the 1st and 2nd portions of the duodenum, which may reflect acute pancreatitis. A component of acute duodenitis could beconsidered. Common bile duct dilation measuring up to 13 mm in diameter with abrupt shouldering at the level the pancreatic head, etiology of obstruction not identified.No evidence of an clinic duct dilation or atrophy. No discrete solid or cystic pancreatic mass. No evidence of pancreatic pseudocyst formation or evidence of necrotizing pancreatitis. Recommendation: MRI pancreas protocol with MRCP, to be performed with and without contrast, which could provide additional characterization and etiology of obstr uction. Differential includes choledocholithiasis. at 1609 Reported and signed by: YUDELKA VALENTE MD CC: Elissa Street MD Technologist: Joselito Hanson CTDI: 18.7 DLP: 983.15 Trscr Dt/Tm: 05/02/2020 (1609) by:[email or web address] Orig Print D/T: S: 05/02/2020 (161) BATCH NO: N/A Name: YULISSA IRWIN [facility]per[facility] Phys: Elissa Street [address] [facility] : 1955 Age: 64 Sex: [place] [address] Loc: N.ERS Exam Date: 05/02/2020 Status: PRE ER PH: FAX: PAGE 2 Signed ReportBASIC METABOLIC [id number] 15:15:00 Test Item Value Reference Range Interpretation Comments SODIUM (test code 136 mmol/L 135-145 N = NA) POTASSIUM (test 3.7 mmol/L 3.6-5.0 N code = K) CHLORIDE (test 108 mmol/L 101-111 N code = CL) CARBON DIOXIDE 18 mmol/L 21-31 L (test code = CO2) GLUCOSE (test code 157 mg/dl 70-100 H = GLU) BLOOD UREA 12 mg/dl 6-20 N NITROGEN (test code = BUN) GLOMERULAR >=60 max >60 The estimated FILTRATION RATE estimate glomerular (test code = GFR) filtration rate is computed usingpatient ra ce, age (>18), sex, and serum creatinin e. If anyof the neede d data elements a re missing the Laboratory jennifer ot compute an estimation of t he glomerular filtration rate . CREATININE (test 0.57 mg/dL 0.44-1.03 N code = CREAT) CALCIUM (test code 9.1 mg/dL 8.5-10.5 N = CA) LIVER FUNCTION [id number] 15:15:00 Test Item Value Reference Range Interpretation Comments TOTAL PROTEIN (test code = PROT) 6.3 g/dL 6.7-8.2 L ALBUMIN (test code = ALB) 4.0 g/dL 3.2-5.5 N BILIRUBIN TOTAL (test code = BILT) 1.00 mg/dL 0.2-1.3 N BILIRUBIN DIRECT (test code = 0.2 mg/dL 0.00-0.20 N BILD) SGOT/AST (test code = AST) 115 U/L 10-42 H SGPT/ALT (test code = ALT) 82 U/L 10-60 H ALKALINE PHOSPHATASE (test code = 100 U/L 42-121 N ALKP) [id number] 15:15:00 Test Item Value Reference Range Interpretation Comments LIPASE (test code = LIP) 381 IU/L 22-51 H BASIC METABOLIC [id number] 15:12:00 Test Item Value Reference Range Interpretation Comments SODIUM (test code 136 mmol/L 135-145 N = NA) POTASSIUM (test 3.7 mmol/L 3.6-5.0 N code = K) CHLORIDE (test 108 mmol/L 101-111 N code = CL) CARBON DIOXIDE 18 mmol/L 21-31 L (test code = CO2) GLUCOSE (test code 157 mg/dl 70-100 H = GLU) BLOOD UREA 12 mg/dl 6-20 N NITROGEN (test code = BUN) GLOMERULAR >=60 max >60 The estimated FILTRATION RATE estimate glomerular (test code = GFR) filtration rate is computed usingpatient ra ce, age (>18), sex, and serum creatinin e. If anyof the neede d data elements a re missing the Laboratory jennifer ot compute an estimation of t he glomerular filtration rate . CREATININE (test 0.57 mg/dL 0.44-1.03 N code = CREAT) CALCIUM (test code 9.1 mg/dL 8.5-10.5 N = CA) LIVER FUNCTION [id number] 15:12:00 Test Item Value Reference Range Interpretation Comments TOTAL PROTEIN (test code = PROT) 6.3 g/dL 6.7-8.2 L ALBUMIN (test code = ALB) 4.0 g/dL 3.2-5.5 N BILIRUBIN TOTAL (test code = BILT) mg/dL 0.2-1.3 BILIRUBIN DIRECT (test code = BILD) mg/dL 0.00-0.20 SGOT/AST (test code = AST) U/L 10-42 SGPT/ALT (test code = ALT) U/L 10-60 ALKALINE PHOSPHATASE (test code = U/L 42-121 ALKP) [id number] 15:12:00 Test Item Value Reference Range Interpretation Comments LIPASE (test code = LIP) IU/L 22-51 BASIC METABOLIC [id number] 15:09:00 Test Item Value Reference Range Interpretation Comments SODIUM (test code 136 mmol/L 135-145 N = NA) POTASSIUM (test 3.7 mmol/L 3.6-5.0 N code = K) CHLORIDE (test 108 mmol/L 101-111 N code = CL) CARBON DIOXIDE 18 mmol/L 21-31 L (test code = CO2) GLUCOSE (test code 157 mg/dl 70-100 H = GLU) BLOOD UREA 12 mg/dl 6-20 N NITROGEN (test code = BUN) GLOMERULAR >=60 max >60 The estimated FILTRATION RATE estimate glomerular (test code = GFR) filtration rate is computed usingpatient ra ce, age (>18), sex, and serum creatinin e. If anyof the neede d data elements a re missing the Laboratory jennifer ot compute an estimation of t he glomerular filtration rate . CREATININE (test 0.57 mg/dL 0.44-1.03 N code = CREAT) CALCIUM (test code 9.1 mg/dL 8.5-10.5 N = CA) LIVER FUNCTION [id number] 15:09:00 Test Item Value Reference Range Interpretation Comments TOTAL PROTEIN (test code = PROT) g/dL 6.7-8.2 ALBUMIN (test code = ALB) g/dL 3.2-5.5 BILIRUBIN TOTAL (test code = BILT) mg/dL 0.2-1.3 BILIRUBIN DIRECT (test code = BILD) mg/dL 0.00-0.20 SGOT/AST (test code = AST) U/L 10-42 SGPT/ALT (test code = ALT) U/L 10-60 ALKALINE PHOSPHATASE (test code = U/L 42-121 ALKP) [id number] 15:09:00 Test Item Value Reference Range Interpretation Comments LIPASE (test code = LIP) IU/L 22-51 LACTIC [id number] 15:04:00 Test Item Value Reference Range Interpretation Comments LACTIC ACID (test code = LACT) 1.5 mmol/L 0.5-2.0 N CBC W/AUTO [id number] 14:49:00 Test Item Value Reference Range Interpretation Comments WHITE BLOOD CELL (test code = 14.7 x10 3/uL 3.2-11.5 H WBC) RED BLOOD CELL (test code = 4.28 x10(6)/m 3.70-5.10 N RBC) HEMOGLOBIN (test code = HGB) 14.2 g/dL 12.0-15.0 N HEMATOCRIT (test code = HCT) 44.2 % 35.7-44.8 N MEAN CELL VOLUME (test code = 103 fL 80-100 H MCV) MEAN CELL HGB (test code = MCH) 33.2 pg 26.2-33.8 N MEAN CELL HGB CONCENTRATION 32.1 g/dL 30.0-34.0 N (test code = MCHC) RED CELL DISTRIBUTION WIDTH 13.2 % 11.3-14.5 N (test code = RDW) PLATELET COUNT (test code = 279 x10 3/uL 130-408 N PLT) MEAN PLATELET VOLUME (test code 10.7 fL 8.6-12.6 N = MPV) NEUTROPHIL % (test code = NT%) 82.6 % 40.0-70.0 H IMMATURE GRANULOCYTE % (test 0.5 % 0.0-2.0 N code = IG%) LYMPHOCYTE % (test code = LY%) 8.4 % 20-40 L MONOCYTE % (test code = MO%) 5.8 % 1-10 N EOSINOPHIL % (test code = EO%) 2.4 % 0.0-5.0 N BASOPHIL % (test code = BA%) 0.3 % 0.0-1.0 N NUCLEATED RBC % (test code = 0.0 % 0.0-0.9 N NRBC%) NEUTROPHIL # (test code = NT#) 12.1 x10 3/uL 1.6-7.2 H LYMPHOCYTE # (test code = LY#) 1.23 x10 3/uL 1.1-2.7 N MONOCYTE # (test code = MO#) 0.9 x10 3/uL 0.3-0.8 H EOSINOPHIL # (test code = EO#) 0.4 x10 3/uL 0.0-0.5 N BASOPHIL # (test code = BA#) 0.1 x10 3/uL 0.0-0.1 N UA RFLX MICR CULT IF [id number] 14:49:00 Test Item Value Reference Range Interpretation Comments UA COLOR (test code = COLU) Beatriz YELLOW UA APPEARANCE (test code = APPU) HAZY CLEAR UA GLUCOSE DIPSTICK (test code = NEGATIVE NEGATIVE DGLUU) UA BILIRUBIN DIPSTICK (test code = NEGATIVE NEGATIVE BILU) UA KETONE DIPSTICK (test code = 1+ NEGATIVE A KETU) UA SPECIFIC GRAVITY (test code = 1.028 1.001-1.030 SGU) UA BLOOD DIPSTICK (test code = TERESA) NEGATIVE NEGATIVE UA PH DIPSTICK (test code = NORMA) 5.0 5.0-9.0 UA PROTEIN DIPSTICK (test code = 1+ NEGATIVE A PROU) UA UROBILINOGEN DIPSTICK (test code NEGATIVE <=1.0 = URO) UA NITRITE DIPSTICK (test code = POSITIVE NEGATIVE A TAYLOR) UA ASCORBIC ACID DIPSTICK (test NEGATIVE code = AAU) UA LEUKOCYTE ESTERASE DIPSTICK NEGATIVE NEGATIVE (test code = LEUU) UA WBC (test code = WBCUR) 0-5 /HPF 0-5 UA RBC (test code = RBCU) 0-5 /HPF 0-5 UA EPITHELIAL CELLS (test code = RARE /LPF NONE-FEW EPIU) UA BACTERIA (test code = BACU) 3+ /HPF NONE SEEN A UA HYALINE CAST (test code = HYALU) 6-10 /LPF 0-1 A UA MUCUS (test code = MUCU) 2+ /LPF NONE SEEN Indication for culture: Suprapubic PainSpecimen Description: CLEAN CATCHCBC W/AUTO [id number] 14:42:00 Test Item Value Reference Range Interpretation Comments WHITE BLOOD CELL (test code = 14.7 x10 3/uL 3.2-11.5 H WBC) RED BLOOD CELL (test code = 4.28 x10(6)/m 3.70-5.10 N RBC) HEMOGLOBIN (test code = HGB) 14.2 g/dL 12.0-15.0 N HEMATOCRIT (test code = HCT) 44.2 % 35.7-44.8 N MEAN CELL VOLUME (test code = 103 fL 80-100 H MCV) MEAN CELL HGB (test code = MCH) 33.2 pg 26.2-33.8 N MEAN CELL HGB CONCENTRATION 32.1 g/dL 30.0-34.0 N (test code = MCHC) RED CELL DISTRIBUTION WIDTH % 11.3-14.5 (test code = RDW) PLATELET COUNT (test code = x10 3/uL 130-408 PLT) MEAN PLATELET VOLUME (test code 10.7 fL 8.6-12.6 N = MPV) NEUTROPHIL % (test code = NT%) % 40.0-70.0 LYMPHOCYTE % (test code = LY%) % 20-40 MONOCYTE % (test code = MO%) % 1-10 EOSINOPHIL % (test code = EO%) % 0.0-5.0 BASOPHIL % (test code = BA%) % 0.0-1.0 NUCLEATED RBC % (test code = % 0.0-0.9 NRBC%) NEUTROPHIL # (test code = NT#) x10 3/uL 1.6-7.2 LYMPHOCYTE # (test code = LY#) x10 3/uL 1.1-2.7 MONOCYTE # (test code = MO#) x10 3/uL 0.3-0.8 EOSINOPHIL # (test code = EO#) x10 3/uL 0.0-0.5 URINE [id number] 13:51:00 Test Item Value Reference Range Interpretation Comments CULTURE (BEAKER) (test A 30-39 ,000 col/mL Tiera code = 1095) albicans >100,000 col/mL skin floraURINALYSIS W/ [id number] 18:13:00 Test Item Value Reference Range Interpretation Comments COLOR (BEAKER) (test code = 470) Yellow CLARITY (BEAKER) (test code = 469) Cloudy SPECIFIC GRAVITY UA (BEAKER) (test 1.020 1.001-1.035 code = 468) PH UA (BEAKER) (test code = 467) 6.0 5.0-8.0 PROTEIN UA (BEAKER) (test code = Negative Negative 464) GLUCOSE UA (BEAKER) (test code = Negative Negative 365) KETONES UA (BEAKER) (test code = Negative Negative 371) BILIRUBIN UA (BEAKER) (test code = Negative Negative 462) BLOOD UA (BEAKER) (test code = Negative Negative 461) NITRITE UA (BEAKER) (test code = Negative Negative 465) LEUKOCYTE ESTERASE UA (BEAKER) Trace Negative A (test code = 466) UROBILINOGEN UA (BEAKER) (test 0.2 mg/dL 0.2-1.0 code = 463) BACTERIA (BEAKER) (test code = Many 517) MUCUS (BEAKER) (test code = 1574) Few YEAST (BEAKER) (test code = 1585) Moderate RBC UA-MANUAL (BEAKER) (test code <5 /HPF = 1659) WBC UA-MANUAL (BEAKER) (test code 5-10 /HPF = 1661) SQUAMOUS EPITHELIAL MANUAL 20-50 /HPF (BEAKER) (test code = 1663) SOURCE(BEAKER) (test code = 2795) RAPID [id number] 17:57:00 Test Item Value Reference Range Interpretation Comments RAPID MYOGLOBIN (BEAKER) (test code 34 ng/mL <107 = 2237) RAPID TROPONIN [id number] 17:57:00 Test Item Value Reference Range Interpretation Comments RAPID TROPONIN I (BEAKER) (test code < ng/mL <0.05 = 1483) B-TYPE NATRIURETIC FACTOR (BNP)[id number] 17:57:00 Test Item Value Reference Range Interpretation Comments B-TYPE NATRIURETIC PEPTIDE (BEAKER) 22 pg/mL 0-100 (test code = 700) RAPID [id number] 17:56:00 Test Item Value Reference Range Interpretation Comments RAPID CKMB (BEAKER) (test code = < ng/mL 0.0-4.3 1482) [id number] 17:54:00 Test Item Value Reference Range Interpretation Comments PROTIME (BEAKER) (test code = 9.9 seconds 9.8-12.0 759) INR (BEAKER) (test code = 370) 0.9 <=5.9 PARTIAL THROMBOPLASTIN TIME 21.9 seconds 25.8-34.5 L (BEAKER) (test code = 760) RECOMMENDED COUMADIN/WARFARIN INR THERAPY RANGESSTANDARD DOSE: 2.0 - 3.0 Includes: PROPHYLAXIS forvenous thrombosis, systemic embolization; TREATMENT for venous thrombosis and/or pulmonary embolus.HIGH RISK: Target INR is 2.5-3.5 for patients with mechanical heart valves.CT, BRAIN, WITHOUT [id number] 17:49:00Reason for exam:->DIZZINESSWhat is the patient's sedation requirement?->No SedationFINAL REPORT CT head without contrast 07/25/2018 5:48 PM CLINICAL HISTORY: Syncope/faintingDIZZINESS TECHNIQUE: Axial noncontrast CT images through the head were obtained. This exa mination was performed according to our departmental dose optimization program, which includes automated exposure control, adjustment of the mA and/or kV according to patient size, and/or use of iterated reconstruction technique. COMPARISON: None available FINDINGS: There is no hemorrhage, extra-axial collection, mass, hydrocephalus, or midline shift. There is no CT evidence for cerebral infarction. There is generalized parenchymal volume loss. The visualized paranasal sinuses and mastoid air cellsare well aerated. There is posterior right parietal scalp swelling. The skull is intact. IMPRESSION: No intracranial hemorrhage or mass effect. If concern for acute pathology persists, further evaluation with MRI is recommended. Signed: Randy Blake Verified Date/Time: 07/25/2018 17:49:33 Reading Location: [facility] Radiology Reading Room [id number] 17:42:00 Test Item Value Reference Range Interpretation Comments MAGNESIUM (BEAKER) (test code = 2.0 mg/dL 1.5-3.0 627) BASIC METABOLIC [id number] 17:42:00 Test Item Value Reference Range Interpretation Comments SODIUM (BEAKER) 139 meq/L 135-148 (test code = 381) POTASSIUM (BEAKER) 4.0 meq/L 3.6-5.5 (test code = 379) CHLORIDE (BEAKER) 103 meq/L 98-106 (test code = 382) CO2 (BEAKER) (test 26 meq/L 24-32 code = 355) BLOOD UREA NITROGEN 14 mg/dL 10-26 (BEAKER) (test code = 354) CREATININE (BEAKER) 0.59 mg/dL 0.50-1.20 (test code = 358) GLUCOSE RANDOM 124 mg/dL 70-110 H (BEAKER) (test code = 652) CALCIUM (BEAKER) 9.9 mg/dL 8.5-10.5 (test code = 697) EGFR (BEAKER) (test 125 INSUFFIC IENT CLINICAL code = 1092) mL/min/1.73 sq DATA TO CALCU LATE m ESTIMATED GFR. HEPATIC FUNCTION [id number] 17:42:00 Test Item Value Reference Range Interpretation Comments TOTAL PROTEIN (BEAKER) (test code = 7.5 gm/dL 6.0-8.5 770) ALBUMIN (BEAKER) (test code = 1145) 4.7 g/dL 3.5-5.0 BILIRUBIN TOTAL (BEAKER) (test code 0.4 mg/dL 0.1-1.2 = 377) BILIRUBIN DIRECT (BEAKER) (test 0.1 mg/dL 0.0-0.4 code = 706) ALKALINE PHOSPHATASE (BEAKER) (test 75 U/L 30-115 code = 346) AST (SGOT) (BEAKER) (test code = 31 U/L 5-40 353) ALT (SGPT) (BEAKER) (test code = 31 U/L 5-50 347) [id number] 17:42:00 Test Item Value Reference Range Interpretation Comments LIPASE (BEAKER) (test code = 749) 235 U/L 40-240 RAD, CHEST, 2 [id number] 17:42:00Reason for exam:->sobFINAL REPORT Chest, PA and lateral. History: Shortness of breath. Comparison: None available. Discussion: The cardiomediastinal silhouette and pulmonary vasculature are withinnormal limits. The lungs are clear without evidence of consolidation or effusion. There are no acute osseous abnormalities. The soft tissues are unremarkable. IMPRESSION: No acute cardiopulmonary abnormality. Signed: Long Doss MDReport Verified Date/Time: 07/25/2018 17:42:28 Reading Location:[address] Radiology Reading Room CBC W/PLT COUNT & AUTO [id number] 17:29:00 Test Item Value Reference Range Interpretation Comments WHITE BLOOD CELL COUNT (BEAKER) 9.6 K/ L 4.0-10.0 (test code = 775) RED BLOOD CELL COUNT (BEAKER) 4.17 M/ L 4.00-5.00 (test code = 761) HEMOGLOBIN (BEAKER) (test code = 13.6 GM/DL 12.0-15.0 410) HEMATOCRIT (BEAKER) (test code = 41.1 % 36.0-45.0 411) MEAN CORPUSCULAR VOLUME (BEAKER) 98.6 fL 82.0-99.0 (test code = 753) MEAN CORPUSCULAR HEMOGLOBIN 32.5 pg 27.0-33.0 (BEAKER) (test code = 751) MEAN CORPUSCULAR HEMOGLOBIN CONC 33.0 GM/DL 32.0-36.0 (BEAKER) (test code = 752) RED CELL DISTRIBUTION WIDTH 11.3 % 10.3-14.2 (BEAKER) (test code = 412) PLATELET COUNT (BEAKER) (test 321 K/CU MM 150-430 code = 756) MEAN PLATELET VOLUME (BEAKER) 8.1 fL 6.5-10.5 (test code = 754) NEUTROPHILS RELATIVE PERCENT 59 % (BEAKER) (test code = 429) LYMPHOCYTES RELATIVE PERCENT 31 % (BEAKER) (test code = 430) MONOCYTES RELATIVE PERCENT 8 % (BEAKER) (test code = 431) EOSINOPHILS RELATIVE PERCENT 1 % (BEAKER) (test code = 432) BASOPHILS RELATIVE PERCENT 1 % (BEAKER) (test code = 437) NEUTROPHILS ABSOLUTE COUNT 5.64 K/ L 1.80-8.00 (BEAKER) (test code = 670) LYMPHOCYTES ABSOLUTE COUNT 2.95 K/ L 1.48-4.50 (BEAKER) (test code = 414) MONOCYTES ABSOLUTE COUNT (BEAKER) 0.74 K/ L 0.00-1.30 (test code = 415) EOSINOPHILS ABSOLUTE COUNT 0.13 K/ L 0.00-0.50 (BEAKER) (test code = 416) BASOPHILS ABSOLUTE COUNT (BEAKER) 0.10 K/ L 0.00-0.20 (test code = 417)
[2020-05-25] MEDS ORDERED: NA CHLORIDE 0.9% 1,000 ML ONE (12:16)
[2020-05-25] MEDS ORDERED: HYDROCODONE/APAP 10/325 TAB ONE (12:51)
--- NOTE | 2020-05-25 13:49 | RAD REPORT ---
EXAM DESCRIPTION: MRI - Brain Wo Cont - 05/25/2020 1:37 pm CLINICAL HISTORY: ams Headache, drowsiness, slurred speech COMPARISON: Head Brain Wo Cont dated 05/25/2020 TECHNIQUE: Multi-sequence, multiplanar MR imaging of the brain was performed without contrast. FINDINGS: No intracranial hemorrhage, hydrocephalus or extra-axial fluid collections.Moderate genera lized brain atrophy. No edema or shift of midline structures. No findings to suspect brain mass. DWI is negative for acute CVA. Midline structures are normally formed. Mastoid air cells and paranasal sinuses are clear. IMPRESSION: Negative for acute CVA or other acute intracranial abnormality.
--- NOTE | 2020-05-25 13:51 | RAD REPORT ---
EXAM DESCRIPTION: CT - Chest For Pe Angio - 05/25/2020 1:42 pm CLINICAL HISTORY: Chest pain. syncope, elevated d-dimer COMPARISON: No comparisons TECHNIQUE: CT angiogram of the pulmonary arteries was performed with MIP. All CT scans are performed using dose optimization technique as appropriate and may include automated exposure control or mA/KV adjustment according to patient size. FINDINGS: No evidence of pulmonary thromboembolism. No acute aortic finding demonstrated. Linear subsegmental atelectasis in both posterior lung bases, greater on the left. No focal infiltrat e detected. No significant pericardial or pleural fluid. No concerning bony finding. Postsurgical changes are present about the stomach. IMPRESSION: No evidence of pulmonary thromboembolism. Mild linear atelectasis in both posterior lung bases.
[2020-05-25 15:37] LABS: Barbiturates NEGATIVE (NEGATIVE); Benzodiazepines POSITIVE (NEGATIVE); Cocaine NEGATIVE (NEGATIVE); METHAMPHETAM NEGATIVE (NEGATIVE); Methadone NEGATIVE (NEGATIVE); Opiates POSITIVE (NEGATIVE); Phencyclidine NEGATIVE (NEGATIVE); THC Cannibis NEGATIVE (NEGATIVE)
--- NOTE | 2020-05-25 15:42 | ER ---
Nurse's Notes [facility] Name: Minnie Flores Age: 64 yrs Sex: Female : 1955 Arrival Date: 05/25/2020 Time: 09:53 Bed 13 Private MD: Diagnosis: Syncope and collapse;Urinary tract infection, site not specified Presentation: 05/25 09:57 Chief complaint: EMS states: EMS called by who reports that pt was slow to ph respond this morning, states that pt was dx w/ pancreatitis approx 1 month and was prescribed hydrocodone for pain. Bottle found on scene was written for 240 pills, 2 pills q6h, was filled about 1 month ago, 4 pills left in bottle, reports that pt has more hydrocodone in the home and believes that she is taking too much. Pt somnolent/drowsy on scene, BP 110/86, pt reports taking 1 pill at 0830 and 1 before bed last night, drowsy upon arrival to ED. Coronavirus screen: Client denies travel out of the [place] in the last 14 days. At this time, the client does not indicate any symptoms associated with coronavirus-19. Ebola Screen: No symptoms or risks identified at this time. Initial Sepsis Screen: Does the patient meet any 2 criteria? No. Patient's initial sepsis screen is negative. Does the patient have a suspected source of infection? No. Patient's initial sepsis screen is negative. Risk Assessment: Do you want to hurt yourself or someone else? Patient reports no desire to harm self or others. Onset of symptoms was May 25, 2020. 09:57 Method Of Arrival: EMS: [facility] ph 09:57 Acuity: AMY 3 ph Triage Assessment: 10:04 General: Appears in no apparent distress. comfortable, well groomed, Behavior is calm, ph cooperative, appropriate for age, drowsy, flat, quiet. Pain: Denies pain. Neuro: Level of Consciousness is awake, obeys commands, Oriented to person, place, time, situation. Cardiovascular: Capillary refill < 3 seconds in bilateral fingers Patient's skin is warm and dry. Respiratory: Airway is patent Respiratory effort is even, unlabored. GI: No signs and/or symptoms were reported involving the gastrointestinal system. Patient currently denies diarrhea, nausea, vomiting. Derm: Skin is intact, is healthy with good turgor, Skin is pink, warm \T\ dry. Musculoskeletal: Circulation, motion, and sensation intact. Range of motion: intact in all extremities. Historical: - Allergies: 10:06 Prilosec; ph 10:06 Seroquel; ph - PMHx: 10:06 Bipolar disorder; Degenerative disc disease; Depression; Fibromyalgia; ph - PSHx: 10:06 Hysterectomy; ph - Immunization history:: Flu vaccine is up to date. - Social history:: Smoking status: Patient denies any tobacco usage or history of. Screenin:03 Abuse screen: Denies threats or abuse. Denies injuries from another. Nutritional ph screening: No deficits noted. Tuberculosis screening: No symptoms or risk factors identified. Fall Risk None identified. Assessment: 10:06 General: SEE TRIAGE ASSESSMENT. ph 11:00 Reassessment: Patient appears in no apparent distress at this time. Patient and/or ph family updated on plan of care and expected duration. Pain level reassessed. Patient is alert, oriented x 3, equal unlabored respirations, skin warm/dry/pink. Family at bedside, pt appears more awake and alert, VSS Patient denies pain at this time. 12:00 Reassessment: Patient appears in no apparent distress at this time. Patient and/or ph family updated on plan of care and expected duration. Pain level reassessed. Patient is alert, oriented x 3, equal unlabored respirations, skin warm/dry/pink. 12:54 Reassessment: Patient appears in no apparent distress at this time. Patient and/or ph family updated on plan of care and expected duration. Pain level reassessed. Patient is alert, oriented x 3, equal unlabored respirations, skin warm/dry/pink. 14:00 Reassessment: Patient appears in no apparent distress at this time. Patient and/or ph family updated on plan of care and expected duration. Pain level reassessed. Patient is alert, oriented x 3, equal unlabored respirations, skin warm/dry/pink. 15:00 Reassessment: Patient appears in no apparent distress at this time. Patient and/or ph family updated on plan of care and expected duration. Pain level reassessed. Patient is alert, oriented x 3, equal unlabored respirations, skin warm/dry/pink. Vital Signs: 09:57 BP 117 / 62; Pulse 79; Resp 18; Temp 97.9(O); Pulse Ox 99% on R/A; Weight 81.65 kg; ph Height 5 ft. 6 in. (167.64 cm); Pain 0/10; 11:00 BP 102 / 61; Pulse 78; Resp 16; Pulse Ox 98% on R/A; ph 11:52 BP 115 / 58; Pulse 79; Resp 18; Pulse Ox 100% on R/A; ph 12:10 BP 128 / 64; Pulse 75; Resp 16; Pulse Ox 98% on R/A; ph 12:55 BP 118 / 68; Pulse 76; Resp 18; Pulse Ox 98% on R/A; ph 14:00 BP 117 / 64; Pulse 75; Resp 16; Temp 97.5; Pulse Ox 99% on R/A; ph 15:00 BP 120 / 64; Pulse 74; Resp 18; Temp 97.9; Pulse Ox 99% on R/A; ph 09:57 Body Mass Index 29.05 (81.65 kg, 167.64 cm) ph ED Course: 09:53 Patient arrived in ED. ds1 10:03 Triage completed. ph 10:05 Arm band placed on Patient placed in an exam room, on a stretcher, on pulse oximetry. ph 10:05 Patient has correct armband on for positive identification. Bed in low position. Call ph light in reach. Side rails up X2. Pulse ox on. NIBP on. Door closed. Noise minimized. Warm blanket given. Head of bed elevated. 10:06 Olayinka Thornton PA is PHCP. jm 10:07 Jas Bradshaw MD is Attending Physician. jm 10:57 CT Head Brain wo Cont In Process Unspecified. EDMS 11:00 Maintain EMS IV. Dressing intact. Good blood return noted. Site clean \T\ dry. Gauge \T\ ph site: 20 LFA. IV is patent, is intact, with fluids infusing freely, with good blood return. 11:35 EKG done, by ED staff, reviewed by Olayinka FERRERA. 3 11:50 Kaia Menon, CHAPARRO is Primary Nurse. ph 13:11 Patient moved to MRI via wheelchair. ph 13:24 MRI - Brain Wo Cont In Process Unspecified. EDMS 13:42 CT Chest For PE Angio In Process Unspecified. EDMS 16:00 No provider procedures requiring assistance completed. IV discontinued, intact, ph bleeding controlled, No redness/swelling at site. Pressure dressing applied. Administered Medications: 12:10 Drug: NS 0.9% 1000 ml Route: IV; Rate: 1 bolus; Site: left wrist; ph 14:00 Follow up: Response: No adverse reaction; IV Status: Completed infusion; IV Intake: ph 1000ml 12:45 Drug: [place] 10 mg-325 mg 1 tabs Route: PO; ph 13:30 Follow up: Response: No adverse reaction ph Intake: 14:00 IV: 1000ml; Total: 1000ml. ph Outcome: 15:42 Discharge ordered by MD. m 16:00 Patient left the ED. zb 16:00 Discharged to home via wheelchair, with family. ph 16:00 Condition: good 16:00 Discharge instructions given to patient, family, Instructed on discharge instructions, follow up and referral plans. medication usage, Demonstrated understanding of instructions, follow-up care, medications, Prescriptions given X 1. Signatures: Dispatcher [employer] EDOK Olayinka Thornton PA PA Alivia Vazquez ds1 Kaia Menon RN RN Kaycee White dh3 Monica Arizmendi RN RN zb Corrections: (The following items were deleted from the chart) 12:54 11:00 Reassessment: Patient appears in no apparent distress at this time. Patient ph and/or family updated on plan of care and expected duration. Pain level reassessed. Patient is alert, oriented x 3, equal unlabored respirations, skin warm/dry/pink. Family at bedside Patient denies pain at this time. ph
--- NOTE | 2020-05-25 15:42 | EDPHYS ---
Physician Documentation [facility] Name: Minnie Flores Age: 64 yrs Sex: Female : 1955 Arrival Date: 05/25/2020 Time: 09:53 Bed 13 Private MD: ED Physician Jas Bradshaw HPI: 05/25 10:07 This 64 yrs old Female presents to ER via EMS with complaints of Dizziness. jmm 10:07 Onset: The symptoms/episode began/occurred acutely, just prior to arrival. jmm 10:07 This is a 64 year old female with a history of ddd, bipolar, fibromyalgia that presents jmm to the ED with an episode of ams which occurred just prior to arrival. states the patient was on the couch with her eyes closed and was having difficulty waking up. Patient does take hydrocodone q 2 hours for chronic pain. Family states the patient has had multiple episodes of "blackouts" which are currently being investigated outpatient. . Historical: - Allergies: 10:06 Prilosec; ph 10:06 Seroquel; ph - PMHx: 10:06 Bipolar disorder; Degenerative disc disease; Depression; Fibromyalgia; ph - PSHx: 10:06 Hysterectomy; ph - Immunization history:: Flu vaccine is up to date. - Social history:: Smoking status: Patient denies any tobacco usage or history of. ROS: 10:07 Constitutional: Negative for fever, chills, and weight loss, Cardiovascular: Negative jmm for chest pain, palpitations, and edema, Respiratory: Negative for shortness of breath, cough, wheezing, and pleuritic chest pain. 10:07 Neuro: Positive for Exam: 12:41 Constitutional: This is a well developed, well nourished patient who is awake, alert, jmm and in no acute distress. Head/Face: atraumatic. Eyes: EOMI, no conjunctival erythema appreciated ENT: Moist Mucus Membranes Neck: Trachea midline, Supple Chest/axilla: Normal chest wall appearance and motion. Cardiovascular: Regular rate and rhythm. No edema appreciated Respiratory: Normal respirations, no respiratory distress appreciated Abdomen/GI: Non distended, soft Back: Normal ROM Skin: General appearance color normal MS/ Extremity: Moves all extremities, no obvious deformities appreciated, no edema noted to the lower extremities Neuro: Awake and alert, normal gait Psych: Behavior is normal, Mood is normal, Patient is cooperative and pleasant Vital Signs: 09:57 BP 117 / 62; Pulse 79; Resp 18; Temp 97.9(O); Pulse Ox 99% on R/A; Weight 81.65 kg; ph Height 5 ft. 6 in. (167.64 cm); Pain 0/10; 11:00 BP 102 / 61; Pulse 78; Resp 16; Pulse Ox 98% on R/A; ph 11:52 BP 115 / 58; Pulse 79; Resp 18; Pulse Ox 100% on R/A; ph 12:10 BP 128 / 64; Pulse 75; Resp 16; Pulse Ox 98% on R/A; ph 12:55 BP 118 / 68; Pulse 76; Resp 18; Pulse Ox 98% on R/A; ph 14:00 BP 117 / 64; Pulse 75; Resp 16; Temp 97.5; Pulse Ox 99% on R/A; ph 15:00 BP 120 / 64; Pulse 74; Resp 18; Temp 97.9; Pulse Ox 99% on R/A; ph 09:57 Body Mass Index 29.05 (81.65 kg, 167.64 cm) ph MDM: 10:28 Patient medically screened. [facility] 15:40 Data reviewed: vital signs, nurses notes. Counseling: I had a detailed discussion with eli the patient and/or guardian regarding: the historical points, exam findings, and any diagnostic results supporting the discharge/admit diagnosis, lab results, radiology results, the need for outpatient follow up, to return to the emergency department if symptoms worsen or persist or if there are any questions or concerns that arise at home. ED course: Patient is alert and non toxic in appearance in the ED. Patient is now at baseline. Imaging studies negative for an acute process. Patient is advised to follow up with cardio/pcp/ep for further evaluation of syncopal episodes. Patient is otherwise given strict return precautions. patient understood and agrees with the plan of care. . 05/25 10:07 Order name: Acetaminophen; Complete Time: 11:33 [facility] 05/25 10:07 Order name: Basic Metabolic Panel; Complete Time: 11:33 [facility] 05/25 10:07 Order name: CBC with Diff; Complete Time: 11:04 [facility] 05/25 10:07 Order name: ETOH Level; Complete Time: 11:33 [facility] 05/25 10:07 Order name: Hepatic Function; Complete Time: 11:33 [facility] 05/25 10:07 Order name: PT-INR; Complete Time: 11:19 [facility] 05/25 10:07 Order name: Ptt, Activated; Complete Time: 11:19 [facility] 05/25 10:07 Order name: Salicylate; Complete Time: 12:07 [facility] 05/25 10:07 Order name: Urine Drug Screen; Complete Time: 15:44 [facility] 05/25 10:07 Order name: Troponin (emerg Dept Use Only); Complete Time: 11:33 [facility] 05/25 12:14 Order name: D-Dimer; Complete Time: 12:52 [facility] 05/25 15:10 Order name: Urine Microscopic Only; Complete Time: 15:56 ss 05/25 15:10 Order name: Urine Dipstick--Ancillary (enter results); Complete Time: 15:56 bd 05/25 15:54 Order name: Urine Culture [facility] 05/25 10:07 Order name: EKG; Complete Time: 10:08 [facility] 05/25 10:07 Order name: EKG - Nurse/Tech; Complete Time: 11:41 [facility] 05/25 10:07 Order name: IV Saline Lock; Complete Time: 11:50 [facility] 05/25 10:07 Order name: Labs collected and sent; Complete Time: 11:50 [facility] 05/25 10:07 Order name: Urine Dipstick-Ancillary (obtain specimen); Complete Time: 15:12 [facility] 05/25 10:40 Order name: CT Head Brain wo Cont; Complete Time: 11:09 [facility] 05/25 11:34 Order name: MRI - Brain Wo Cont; Complete Time: 13:51 [facility] 05/25 12:53 Order name: CT Chest For PE Angio; Complete Time: 13:52 [facility] 05/25 13:52 Order name: Misc. Order: UA; Complete Time: 15:10 [facility] Administered Medications: 12:10 Drug: NS 0.9% 1000 ml Route: IV; Rate: 1 bolus; Site: left wrist; ph 14:00 Follow up: Response: No adverse reaction; IV Status: Completed infusion; IV Intake: ph 1000ml 12:45 Drug: [place] 10 mg-325 mg 1 tabs Route: PO; ph 13:30 Follow up: Response: No adverse reaction ph Disposition: 16:15 Co-signature as Attending Physician, Jas Bradshaw MD. rn Disposition: 05/25/20 15:42 Discharged to Home. Impression: Syncope and collapse, Urinary tract infection, site not specified. - Condition is Stable. - Discharge Instructions: Syncope, Urinary Tract Infection, Adult. - Prescriptions for Keflex 500 mg Oral Capsule - take 1 capsule by ORAL route every 8 hours for 10 days; 30 capsule. - Medication Reconciliation Form, Thank You Letter, Antibiotic Education, Prescription Opioid Use form. - Follow up: Private Physician; When: 2 - 3 days; Reason: Recheck today's complaints, Continuance of care, Re-evaluation by your physician. Signatures: Dispatcher [employer] EDMS Olayinka Thornton PA PA jmm Nieto, Roman, MD MD rn Hall, Patricia, RN RN Monica Holland RN RN arpan Corrections: (The following items were deleted from the chart) 16:00 15:42 05/25/2020 15:42 Discharged to Home. Impression: Syncope and collapse; Urinary zb tract infection, site not specified. Condition is Stable. Forms are Medication Reconciliation Form, Thank You Letter, Antibiotic Education, Prescription Opioid Use. Follow up: Private Physician; When: 2 - 3 days; Reason: Recheck today's complaints, Continuance of care, Re-evaluation by your physician. eli
[2020-05-25 15:53] LABS: Urine Bacteria <20 /HPF (<20); Urine Culture Reflex Order REFLEXED; Urine Mucus 1+ /HPF (NONE SEEN); Urine RBC <5 /HPF (NONE SEEN)
[2020-05-25 15:54] LABS: Urine Blood NEGATIVE (NEG); Urine Glucose NEGATIVE (NEG); Urine Protein NEGATIVE (NEG); Urine pH 5.5 (5.0-7.0)
[2020-05-25 17:45] VITALS: TEMP 97.9
[2020-05-25 17:53] VITALS: O2SAT 98
[2020-05-25 17:54] VITALS: BP 118/68
== END 2020-05-25 16:00 | disposition home or self-care (01) ==
LOC: ER 09:52
DX: N39.0 Urinary tract infection, site not specified (principal); F31.9 Bipolar disorder, unspecified; Z88.8 Allergy status to other drugs, medicaments and biological substances
CPT/HCPCS: 96361; 93005; 87088; 85025; 87086; 80048; 36415; 80320; 80329 ×2; 85610; 85379; 80076; 80307 ×8; 85730; 84484; 70450; 71275; 70551; 96360; 99284; Q9967; J7030; 81003; 81015; 87077; 87186

== ENCOUNTER 2022-02-01 15:06 | Inpatient (IN) | payer OTHER ==
--- OUTSIDE RECORDS SUMMARY | 2022-02-01 15:22 | XMS REPORT | Continuity of Care Document ---
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 Ke lsey Succinate 1-10 (1) Seybold 100 MG oral 00:00: TABLET(S) Tablet 00 BY MOUTH AT ONSET OF HEADACHE. MAY REPEAT ONCE IN 2 HOURS NEEDED (MAX OF 2 TABS PER DAY). Rizatriptan Yes TAKE ONE Ke lsey Benzoate 10 -06 (1) Seybold MG oral 00:00: TABLET(S) Tablet 00 BY MOUTH AT ONSET OF HEADACHE. MAY REPEAT ONCE IN 2 HOURS NEEDED. (MAX 2 TABLETS PER DAY). Rizatriptan Yes TAKE ONE Ke lsey Benzoate 10 -06 (1) Seybold MG oral 00:00: TABLET(S) Tablet 00 BY MOUTH AT ONSET OF HEADACHE. MAY REPEAT ONCE IN 2 HOURS NEEDED. (MAX 2 TABLETS PER DAY). Lurasidone Yes [id number] 120mg Take 120 Mayra HCl 1-04 mg by Seybold (LATUDA) 09:44: mouth 120 MG oral 49 daily Tab PANTOPRAZOL 2021-0 Yes 1{tbl} Take 1 Ke lsey E SODIUM OR 1-04 tablet by Sey bold 09:44: mouth 49 Benztropine 2021-0 Yes 1{tbl} Take 1 Ke lsey Mesylate 1 1-04 tablet by Seyb old MG oral 09:44: mouth at Tablet 49 bedtime busPIRone 2021-0 Yes 1{tbl} Take 1 Inga ey HCl 15 MG 1-04 tablet by Seybo ld oral Tablet 09:44: mouth 49 busPIRone 2022-0 Yes 1{tbl} Take 1 Inga ey HCl 10 MG 1-04 tablet by Seybo ld oral Tablet 09:44: mouth 49 Fluconazole 2021-0 Yes 1{tbl} Take 1 Ke lsey 40 MG/ML 1-04 tablet by Seybol d oral Recon 09:44: mouth Susp 49 metroNIDAZO 2021-0 Yes 1{tbl} Take 1 Ke lsey LE 1-04 tablet by Seybold (Nuvessa) 09:44: mouth 1.3 % 49 vaginal Gel Mirtazapine 2021-0 Yes 1/2-1 Kelse y 30 MG oral 1-04 tablet at Seyb old Tablet 09:44: bedtime 49 Topiramate 2021-0 Yes not Mayra 25 MG oral 1-04 defined Seybol d CAPSULE 09:44: SPRINKLE 49 Trazodone 2021-0 Yes 1{tbl} Take 1 Inga ey HCl 150 MG 1-04 tablet by Seyb old oral Tablet 09:44: mouth at 49 bedtime as needed Trazodone 2021-0 Yes 1-3 Mayra HCl 50 MG 1-04 tablets at Seyb old oral Tablet 09:44: bedtime as 49 needed hydrOXYzine 2020-07 Yes 10mg [id number] Take 10 mg Mayra HCl 10 MG 2-31 [id number] by mouth 3 Seybold oral Tablet 00:00: 3D times 00 daily as needed hydrOXYzine 2020-07 Yes 10mg Q.[id number] Take 10 mg Mayra HCl 10 MG 2-31 [id number] by mouth 3 Seybold oral Tablet 00:00: 3D times 00 daily as needed hydrOXYzine 2020-07 Yes 10mg Q.[id number] Take 10 mg Mayra HCl 10 MG 2-31 [id number] by mouth 3 Seybold oral Tablet 00:00: 3D times 00 daily as needed hydrOXYzine 2020-07 Yes 10mg Q.[id number] Take 10 mg Mayra HCl 10 MG 2-31 [id number] by mouth 3 Seybold oral Tablet 00:00: 3D times 00 daily as needed hydrOXYzine 2020-07 Yes 10mg Q.[id number] Take 10 mg Mayra HCl 10 MG 2-31 [id number] by mouth 3 Seybold oral Tablet 00:00: 3D times 00 daily as needed hydrOXYzine 2020-07 Yes 10mg Q.[id number] Take 10 mg Mayra HCl 10 MG 2-31 [id number] by mouth 3 Seybold oral Tablet 00:00: 3D times 00 daily as needed Temazepam 2020-07 Yes TAKE ONE Inga ey 15 MG oral 2-30 (1) OR TWO Sey bold Capsule 00:00: (2) 00 CAPSULE(S) BY MOUTH DAILY AT BEDTIME NEEDED. Temazepam 2020-07 Yes TAKE ONE Inga ey 15 MG oral 2-30 (1) OR TWO Sey bold Capsule 00:00: (2) 00 CAPSULE(S) BY MOUTH DAILY AT BEDTIME NEEDED. Temazepam 2020-07 Yes TAKE ONE Inga ey 15 MG oral 2-30 (1) OR TWO Sey bold Capsule 00:00: (2) 00 CAPSULE(S) BY MOUTH DAILY AT BEDTIME NEEDED. Temazepam 2020-07 Yes TAKE ONE Inga ey 15 MG oral 2-30 (1) OR TWO Sey bold Capsule 00:00: (2) 00 CAPSULE(S) BY MOUTH DAILY AT BEDTIME NEEDED. Temazepam 2020-07 Yes TAKE ONE Inga ey 15 MG oral 2-30 (1) OR TWO Sey bold Capsule 00:00: (2) 00 CAPSULE(S) BY MOUTH DAILY AT BEDTIME NEEDED. Temazepam 2020-07 Yes TAKE ONE Inga ey 15 MG oral 2-30 (1) OR TWO Sey bold Capsule 00:00: (2) 00 CAPSULE(S) BY MOUTH DAILY AT BEDTIME NEEDED. HYDROcodone 2020-07 Yes 2{tbl} Q6H Take 2 Mayra -Acetaminop 2-22 tablets by [facility] (GloNav) 00:00: mouth 10-325 MG 00 every 6 oral Tablet hours as needed for pain For chronic pain secondary to fibromyalg ia HYDROcodone 2020-07 Yes 2{tbl} Q6H Take 2 Mayra -Acetaminop 2-22 tablets by [facility] (GloNav) 00:00: mouth 10-325 MG 00 every 6 oral Tablet hours as needed for pain For chronic pain secondary to fibromyalg ia Rizatriptan 2020-07 Yes TAKE ONE Ke lsey Benzoate 10 2-03 (1) Seybold MG oral 00:00: TABLET(S) Tablet 00 BY MOUTH AT ONSET OF HEADACHE. MAY REPEAT ONCE IN 2 HOURS NEEDED. (MAX 2 TABLETS PER DAY). Sumatriptan 2020-07 Yes TAKE ONE Ke lsey Succinate 08-12 (1) Seybold 100 MG oral 00:00: TABLET(S) Tablet 00 BY MOUTH AT ONSET OF HEADACHE. MAY REPEAT ONCE IN 2 HOURS NEEDED (MAX OF 2 TABS PER DAY). Triamcinolo 2020-07- No [id number] 40mg Mayra ne 08-11 Seybold Acetonide 20:00: 20:11 (Kenalog) 00 :00 [40 mg/mL] 40mg TOTAL - Physician Administere d ([id number]) Ketorolac 2020-07- No [id number] 60mg Ke lsey Tromethamin 08-11 Seybold e (TORADOL) 20:00: 20:12 60 mg/2 mL 00 :00 Ketorolac 2020-07- No [id number] 60mg 60 mg, Mayra Tromethamin 08-11 intramuscu S eybold e (TORADOL) 20:00: 20:12 lar, ONCE, 60 mg/2 mL 00 :00 On Alexsandra 06/10/21 at 1400, For 1 dose Triamcinolo 2020-07- No [id number] 40mg 40 mg, Mayra ne 08-11 Physician Seybold Acetonide 20:00: 20:11 Administer (Kenalog) 00 :00 ed, ONCE, [40 mg/mL] On Alexsandra 40mg TOTAL 06/10/21 at - Physician 1400, For Administere 1 dose d (J3301) Lurasidone 2020-07 Yes [id number] 120mg Take 120 Mayra HCl 2-02 mg by Seybold (LATUDA) 13:31: mouth 120 MG oral 06 daily Tab PANTOPRAZOL 2020-07 Yes 1{tbl} Take 1 Ke lsey E SODIUM OR 2-02 tablet by Sey bold 13:31: mouth 06 Benztropine 2020-07 Yes 1{tbl} Take 1 Ke lsey Mesylate 1 2-02 tablet by Seyb old MG oral 13:31: mouth at Tablet 06 bedtime busPIRone 2020-07 Yes 1{tbl} Take 1 Inga ey HCl 15 MG 2-02 tablet by Seybo ld oral Tablet 13:31: mouth 06 busPIRone 2020-07 Yes 1{tbl} Take 1 Inga ey HCl 10 MG 2-02 tablet by Seybo ld oral Tablet 13:31: mouth 06 Fluconazole 2020-07 Yes 1{tbl} Take 1 Ke lsey 40 MG/ML 2-02 tablet by Seybol d oral Recon 13:31: mouth Susp 06 metroNIDAZO 2020-07 Yes 1{tbl} Take 1 Ke lsey LE 2-02 tablet by Seybold (Nuvessa) 13:31: mouth 1.3 % 06 vaginal Gel Mirtazapine 2020-07 Yes 1/2-1 Kelse y 30 MG oral 2-02 tablet at Seyb old Tablet 13:31: bedtime 06 Topiramate 2020-07 Yes not Mayra 25 MG oral 2-02 defined Seybol d CAPSULE 13:31: SPRINKLE 06 Trazodone 2020-07 Yes 1{tbl} Take 1 Inga ey HCl 150 MG 2-02 tablet by Seyb old oral Tablet 13:31: mouth at 06 bedtime as needed Trazodone 2020-07 Yes 1-3 Mayra HCl 50 MG 2-02 tablets at Seyb old oral Tablet 13:31: bedtime as 06 needed Onabotulinu 2020-07- No [id number] 200U K elsey mtoxinA -06-09 Seybmirella [200 Units] 19:30: 19:37 - Physician 00 :00 Administere d ([id number]) Onabotulinu 2020-07- No [id number] 200U 200 unit, Mayra mtoxinA -06-09 Physician Seybol d [200 Units] 19:30: 19:37 Administer - Physician 00 :00 ed, ONCE, Administere 1 dose, On d ([id number]) 06/09/21 at 1330 Lurasidone 2020-07 Yes [id number] 120mg Take 120 Mayra HCl 2-01 mg by Seybold (LATUDA) 13:02: mouth 120 MG oral 08 daily Tab PANTOPRAZOL 2020-07 Yes 1{tbl} Take 1 Ke lsey E SODIUM OR 2-01 tablet by Sey bold 13:02: mouth 08 Benztropine 2020-07 Yes 1{tbl} Take 1 Ke lsey Mesylate 1 2-01 tablet by Seyb old MG oral 13:02: mouth at Tablet 08 bedtime busPIRone 2020-07 Yes 1{tbl} Take 1 Inga ey HCl 15 MG 2-01 tablet by Seybo ld oral Tablet 13:02: mouth 08 busPIRone 2020-07 Yes 1{tbl} Take 1 Inga ey HCl 10 MG 2-01 tablet by Seybo ld oral Tablet 13:02: mouth 08 Fluconazole 2020-07 Yes 1{tbl} Take 1 Ke lsey 40 MG/ML 2-01 tablet by Seybol d oral Recon 13:02: mouth Susp 08 metroNIDAZO 2020-07 Yes 1{tbl} Take 1 Ke lsey LE 2-01 tablet by Seybold (Nuvessa) 13:02: mouth 1.3 % 08 vaginal Gel Mirtazapine 2020-07 Yes 1/2-1 Kelse y 30 MG oral 2-01 tablet at Seyb old Tablet 13:02: bedtime 08 Topiramate 2020-07 Yes not Mayra 25 MG oral 2-01 defined Seybol d CAPSULE 13:02: SPRINKLE 08 Trazodone 2020-07 Yes 1{tbl} Take 1 Inga ey HCl 150 MG 2-01 tablet by Seyb old oral Tablet 13:02: mouth at 08 bedtime as needed Trazodone 2020-07 Yes 1-3 Mayra HCl 50 MG 2-01 tablets at Seyb old oral Tablet 13:02: bedtime as 08 needed HYDROcodone 2020-07 Yes 2{tbl} Q6H Take 2 Ke lsey -Acetaminop 1-24 tablets by Se [facility] (GloNav) 00:00: mouth 10-325 MG 00 every 6 oral Tablet hours as needed for pain For chronic pain secondary to fibromyalg ia HYDROcodone 2020-07 Yes 2{tbl} Q6H Take 2 Ke lsey -Acetaminop 1-24 tablets by Se [facility] hen (GloNav) 00:00: mouth 10-325 MG 00 every 6 oral Tablet hours as needed for pain For chronic pain secondary to fibromyalg ia Sumatriptan 2020-07 Yes TAKE ONE Ke lsey Succinate 0-19 TABLET BY Seybo ld 100 MG oral 00:00: MOUTH AT Tablet 00 ONSET OF HEADACHE; MAY REPEAT ONE TABLET IN 2 HOURS IF NEEDED. MAX 2 TABLETS/24 HOURS Sumatriptan 2020-07 Yes TAKE ONE Ke lsey Succinate 0-19 TABLET BY Seybo ld 100 MG oral 00:00: MOUTH AT Tablet 00 ONSET OF HEADACHE; MAY REPEAT ONE TABLET IN 2 HOURS IF NEEDED. MAX 2 TABLETS/24 HOURS Ondansetron 2020-07 Yes TAKE ONE Ke lsey HCl 4 MG 0-18 TABLET BY Seybol d oral Tablet 00:00: MOUTH 00 EVERY 8 HOURS NEEDED FOR NAUSEA Ondansetron 2020-07 Yes TAKE ONE Ke lsey HCl 4 MG 0-18 TABLET BY Seybol d oral Tablet 00:00: MOUTH 00 EVERY 8 HOURS NEEDED FOR NAUSEA Ondansetron 2020-07 Yes TAKE ONE Ke lsey HCl 4 MG 0-18 TABLET BY Seybol d oral Tablet 00:00: MOUTH 00 EVERY 8 HOURS NEEDED FOR NAUSEA Ondansetron 2020-07 Yes TAKE ONE Ke lsey HCl 4 MG 0-18 TABLET BY Seybol d oral Tablet 00:00: MOUTH 00 EVERY 8 HOURS NEEDED FOR NAUSEA Ondansetron 2020-07 Yes TAKE ONE Ke lsey HCl 4 MG 0-18 TABLET BY Seybol d oral Tablet 00:00: MOUTH 00 EVERY 8 HOURS NEEDED FOR NAUSEA Ondansetron 2020-07 Yes TAKE ONE Ke lsey HCl 4 MG 0-18 TABLET BY Seybol d oral Tablet 00:00: MOUTH 00 EVERY 8 HOURS NEEDED FOR NAUSEA Ondansetron 2020-07 Yes TAKE ONE Ke lsey HCl 4 MG 0-18 TABLET BY Seybol d oral Tablet 00:00: MOUTH 00 EVERY 8 HOURS NEEDED FOR NAUSEA Ondansetron 2020-07 Yes TAKE ONE Ke lsey HCl 4 MG 0-18 TABLET BY Seybol d oral Tablet 00:00: MOUTH 00 EVERY 8 HOURS NEEDED FOR NAUSEA Ondansetron 2020-07- No TAKE ONE K elsey HCl 4 MG 0-18 06-03 TABLET BY Seybo ld oral Tablet 00:00: 00:00 MOUTH 00 :00 EVERY 8 HOURS NEEDED FOR NAUSEA Rizatriptan 2021-1 Yes TAKE 1 Inga ey Benzoate 10 0-04 TABLET BY Sey bold MG oral 00:00: MOUTH Tablet 00 ONSET OF HEADACHE, MAY REPEAT ONE TABLET IN 2 HOURS IF NEEDED Rizatriptan 1 Yes TAKE 1 Inga ey Benzoate 10 0-04 TABLET BY Sey bold MG oral 00:00: MOUTH Tablet 00 ONSET OF HEADACHE, MAY REPEAT ONE TABLET IN 2 HOURS IF NEEDED hydrOXYzine 2020-0 Yes 1{tbl} 1 tablet Mayra HCl 10 MG 9-30 by other Seybol d oral Tablet 00:00: route as 00 needed hydrOXYzine 2020-0 Yes 1{tbl} 1 tablet Mayra HCl 10 MG 9-30 by other Seybol d oral Tablet 00:00: route as 00 needed hydrOXYzine 2020-0 Yes 1{tbl} 1 tablet Mayra HCl 10 MG 9-30 by other Seybol d oral Tablet 00:00: route as 00 needed hydrOXYzine 2020-0 Yes 1{tbl} 1 tablet Mayra HCl 10 MG 9-30 by other Seybol d oral Tablet 00:00: route as 00 needed hydrOXYzine 2020-0 2021- No 1{tbl} 1 tablet Mayra HCl 10 MG 9-30 05-12 by other Seybo ld oral Tablet 00:00: 00:00 route as 00 :00 needed metroNIDAZO 2020-0 Yes 1{tbl} Take 1 Ke lsey LE 9-23 tablet by Seybold (Nuvessa) 15:04: mouth 1.3 % 42 vaginal Gel Mirtazapine 2020-0 Yes 1/2-1 Kelse y 30 MG oral 9-23 tablet at Seyb old Tablet 15:04: bedtime 42 Topiramate 2020-0 Yes not Mayra 25 MG oral 9-23 defined Seybol d CAPSULE 15:04: SPRINKLE 42 Trazodone 2020-0 Yes 1{tbl} Take 1 Inga ey HCl 150 MG 9-23 tablet by Seyb old oral Tablet 15:04: mouth at 42 bedtime as needed Trazodone 2020-0 Yes 1-3 Mayra HCl 50 MG 9-23 tablets at Seyb old oral Tablet 15:04: bedtime as 42 needed Lurasidone 2020-0 Yes [id number] 120mg Take 120 Mayra HCl 9-23 mg by Seybold (LATUDA) 15:04: mouth 120 MG oral 42 daily Tab PANTOPRAZOL Yes 1{tbl} Take 1 Ke lsey E SODIUM OR 9-23 tablet by Sey bold 15:04: mouth 42 Benztropine Yes 1{tbl} Take 1 Ke lsey Mesylate 1 9-23 tablet by Seyb old MG oral 15:04: mouth at Tablet 42 bedtime busPIRone Yes 1{tbl} Take 1 Inga ey HCl 15 MG 9-23 tablet by Seybo ld oral Tablet 15:04: mouth 42 busPIRone Yes 1{tbl} Take 1 Inga ey HCl 10 MG 9-23 tablet by Seybo ld oral Tablet 15:04: mouth 42 Fluconazole Yes 1{tbl} Take 1 Ke lsey 40 MG/ML 9-23 tablet by Seybol d oral Recon 15:04: mouth Susp 42 Amoxicillin Yes Mayra 500 MG oral 9-20 Seybold Capsule 00:00: 00 Amoxicillin Yes Mayra 500 MG oral 9-20 Seybold Capsule 00:00: 00 Amoxicillin 0 Yes Mayra 500 MG oral 9-20 Seybold Capsule 00:00: 00 Amoxicillin 0 Yes Mayra 500 MG oral 9-20 Seybold Capsule 00:00: 00 Amoxicillin 0 Yes Mayra 500 MG oral 9-20 Seybold Capsule 00:00: 00 HYDROcodone Yes 2{tbl} Q6H Take 2 Ke lsey -Acetaminop 9-03 tablets by Se missy candelaria ([place]) 00:00: mouth 10-325 MG 00 every 6 oral Tablet hours as needed for pain For chronic pain secondary to fibromyalg ia Ondansetron Yes TAKE ONE Ke lsey HCl 4 MG 8-18 TABLET BY Seybol d oral Tablet 00:00: MOUTH 00 EVERY 8 HOURS NEEDED FOR NAUSEA Temazepam Yes Tali 1-2 Memor ia 8-03 Marek capsules l 02:45: at bedtime [place] 37 as needed Rizatriptan Yes TAKE ONE Ke lsey Benzoate 10 8-01 TABLET BY Walker bold MG oral 00:00: MOUTH AT Tablet 00 ONSET OF HEADACHE; MAY REPEAT ONE TABLET IN 2 HOURS IF NEEDED. Tizanidine Yes Tali 2 tablets Memoria HCl - Marek at bedtime l 02:45: Félix 18 Metronidazo Yes Tali TAKE 1 M emoria le 02-06 Marek TABLET BY l 02:45: MOUTH Félxi 18 EVERY 6 HOURS FOR 10 DAYS Ondansetron Yes Tali not Mem oria HCl 02-06 Marek defined l 02:45: [place] 18 Rizatriptan Yes Tali 1 tablet Memoria Benzoate 02-06 Marek l 02:45: [place] 18 Sumatriptan Yes Tali 1 tablet [facility]oria Succinate 02-06 Marek at least 2 l 02:45: hours [place] 18 between doses as needed Latuda Yes Tali 1 tablet Shekhar clarice 02-06 Marek with food l 02:45: Fléix 18 Hydrocodone Yes Tali 2 tablets Memoria -Acetaminop 02-06 Marek as needed l hen 02:45: [place] 18 Temazepam 0 Yes Tali 1 capsule [facility] - Marek at bedtime l 02:45: as needed Félix 18 potassium Yes Tali not Memor ia 02-06 Marek defined l 02:45: Félix 18 Pantoprazol Yes Tali 1 tablet Memoria e - Marek l 02:45: Félix 18 Fluconazole 0 Yes Tali 1 tablet Memoria - Marek l 02:45: [place] 18 Metronidazo Yes Tali 1 tablet Memoria le - Marek l 02:45: Félix 18 Oxybutynin Yes TAKE ONE Matt sey Chloride 10 6-06 TABLET BY Sey bold MG oral 00:00: MOUTH TABLET SR 00 DAILY 24 HR Oxybutynin Yes TAKE ONE Matt sey Chloride 10 6-06 TABLET BY Sey bold MG oral 00:00: MOUTH TABLET SR 00 DAILY 24 HR Oxybutynin Yes TAKE ONE Matt sey Chloride 10 6-06 TABLET BY Sey bold MG oral 00:00: MOUTH TABLET SR 00 DAILY 24 HR Oxybutynin Yes TAKE ONE Matt sey Chloride 10 6-06 TABLET BY Sey bold MG oral 00:00: MOUTH TABLET SR 00 DAILY 24 HR Oxybutynin Yes TAKE ONE Matt sey Chloride 10 6-06 TABLET BY Sey bold MG oral 00:00: MOUTH TABLET SR 00 DAILY 24 HR Benztropine Yes Tali 1 tablet [facility] Mesylate 5-06 Marek at bedtime l 02:45: [place] 33 lurasidone Yes 120mg QD Take [address] [facility] (Latuda) 5-01 mg by [facility] 120 mg Tab 14:17: mouth Medica l 48 daily. [facility] docusate 2020- No 100mg Q.5D Take 1 [facility]-07 [facility] (COLACE) 00:00: 23:59 (100 mg Medic al 100 MG 00 :00 total) by [facility] capsule mouth 2 (two) times daily for 10 days. amoxicillin 2020- No 1{tbl} Q.5D Take [address] -clavulanat 11-07 tablet by Frank maza e 00:00: 23:59 mouth 2 Medical (AUGMENTIN) 00 :00 (two) Center 875-125 mg times per tablet daily for 6 days. LORazepam 2020- No 1mg Take [address] [facility] [address] [facility] (ATIVAN) 1 4-24 04-24 by mouth. Cle[facility] es MG tablet 12:35: 00:00 Medical 45 :00 [facility] ciprofloxac 2020- No 500mg Take [address] [facility] in HCl 4-23 04-23 mg by [place] (CIPRO) 500 20:58: 00:00 mouth. Med ical MG tablet 58 :00 [facility] lurasidone 2020- No Take by [facility] (LATUDA) 40 4-23 04-23 [facility]. [facility] mg Tab 20:58: 00:00 Medical 58 :00 [facility] oxybutynin Yes 10mg QD Take [address] [facility] (DITROPAN-X 4-21 by mouth Luke s L) 10 MG 24 00:00: daily . Med ical hr tablet 00 Center temazepam Yes 15mg Take [address] [facility] [address] [facility] (RESTORIL) 4-06 by mouth [facility] 15 mg 00:00: every Medical capsule 00 night as Center needed . BusPIRone 0 Yes Robinson 1 tablet Shekhar clarice HCl 4-01 Lidasan l 02:48: [place] 48 Tizanidine 2020-0 Yes TAKE TWO Matt sey HCl 4 MG 4-01 TABLETS BY Seybo ld oral Tablet 00:00: MOUTH AT 00 BEDTIME Tizanidine 2020-0 Yes TAKE TWO Matt sey HCl 4 MG 4-01 TABLETS BY Seybo ld oral Tablet 00:00: MOUTH AT 00 BEDTIME Tizanidine 2020-0 Yes TAKE TWO Matt sey HCl 4 MG 4-01 TABLETS BY Seybo ld oral Tablet 00:00: MOUTH AT 00 BEDTIME Tizanidine 2020-0 Yes TAKE TWO Matt sey HCl 4 MG 4-01 TABLETS BY Seybo ld oral Tablet 00:00: MOUTH AT 00 BEDTIME Tizanidine 2020-0 Yes TAKE TWO Matt sey HCl 4 MG 4-01 TABLETS BY Seybo ld oral Tablet 00:00: MOUTH AT 00 BEDTIME Tizanidine 2020-0 Yes TAKE TWO Matt sey HCl 4 MG 4-01 TABLETS BY Seybo ld oral Tablet 00:00: MOUTH AT 00 BEDTIME Tizanidine 2020-0 Yes TAKE TWO Matt sey HCl 4 MG 4-01 TABLETS BY Seybo ld oral Tablet 00:00: MOUTH AT 00 BEDTIME Tizanidine 2020-0 Yes TAKE TWO Matt sey HCl 4 MG 4-01 TABLETS BY Seybo ld oral Tablet 00:00: MOUTH AT 00 BEDTIME Tizanidine 2020-0 Yes TAKE TWO Matt sey HCl 4 MG 4-01 TABLETS BY Seybo ld oral Tablet 00:00: MOUTH AT 00 BEDTIME Tizanidine 2020-0 Yes TAKE TWO Matt sey HCl 4 MG 4-01 TABLETS BY Seybo ld oral Tablet 00:00: MOUTH AT 00 BEDTIME busPIRone 2020-0 2020- No [address] [facility] (BUSPAR) 15 4-07 13-24 [facility] tablet 00:00: 00:00 Medical 00 :00 [facility] Latuda 120 2020-0 1- No 120mg QD [address] [facility] mg Tab 3-12 11-24 daily . [facility] 00:[facility]: 00:00 Medical 00 :00 [facility] Sumatriptan Yes TAKE ONE Ke lsey Succinate 2-24 TABLET BY Seybo ld 100 MG oral 00:00: MOUTH AT Tablet 00 ONSET OF HEADACHE; MAY REPEAT ONE TABLET IN 2 HOURS IF NEEDED. ( MAX OF 2 TABLET IN 24 HOURS) benztropine 2020- No [facility] (COG[facility]IN[facility] 2-03 04-24 [facility] 1 MG tablet 00:00: 00:00 Medic al 00 :00 Center pantoprazol 2020- No [facility] -[facility] (PROTONIX) 00:00: 00:00 Medica l 40 MG 00 :00 [facility] tablet Trazodone Yes Sharifa 1 tablet Me moria HCl 1-19 [facility] at bedtime l 03:45: as needed Félix 16 Lorazepam Yes Sharifa 1 tablet Me moria 1-19 Walker as needed l 03:45: [place] 16 Trazodone 2019-07 Yes Robinson 1 tablet Shekhar clarice HCl 2-23 Lidasan at bedtime l 00:00: Félix 00 Trazodone 2019-07 Yes 1{tbl} Take 1 Inga ey HCl 100 MG 2-23 tablet by Seyb old oral Tablet 00:00: mouth at 00 bedtime Trazodone 2019-07 Yes 1{tbl} Take 1 Inga ey HCl 100 MG 2-23 tablet by Seyb old oral Tablet 00:00: mouth at 00 bedtime Trazodone 2019-07 Yes 1{tbl} Take 1 Inga ey HCl 100 MG 2-23 tablet by Seyb old oral Tablet 00:00: mouth at 00 bedtime Trazodone 2019-07 Yes 1{tbl} Take 1 Inga ey HCl 100 MG 2-23 tablet by Seyb old oral Tablet 00:00: mouth at 00 bedtime Trazodone 2019-07 Yes 1{tbl} Take 1 Inga ey HCl 100 MG 2-23 tablet by Seyb old oral Tablet 00:00: mouth at 00 bedtime Trazodone 2019-07 Yes 1{tbl} Take 1 Inga ey HCl 100 MG 2-23 tablet by Seyb old oral Tablet 00:00: mouth at 00 bedtime Trazodone 2019-07 Yes 1{tbl} Take 1 Inga ey HCl 100 MG 2-23 tablet by Seyb old oral Tablet 00:00: mouth at 00 bedtime Trazodone 2019-07 Yes 1{tbl} Take 1 Inga ey HCl 100 MG 2-23 tablet by Seyb old oral Tablet 00:00: mouth at 00 bedtime Trazodone 2019-07 Yes 1{tbl} Take 1 Inga ey HCl 100 MG 2-23 tablet by Seyb old oral Tablet 00:00: mouth at 00 bedtime Trazodone 2019-07 Yes 1{tbl} Take 1 Inga ey HCl 100 MG 2-23 tablet by Seyb old oral Tablet 00:00: mouth at 00 bedtime Temazepam 2019-07 Yes Sharifa 1 capsule M emoria 1-05 Walker at bedtime l 00:00: as needed [place] 00 ondansetron Yes TAKE ONE [facility] (ZOFRAN) 4 9-30 TABLET BY Luke s MG tablet 00:00: MOUTH Medical 00 EVERY 8 Center HOURS NEEDED FOR NAUSEA Midodrine Yes [id number] 2.5mg Take 1 K elsey HCl 2.5 MG 9-22 tablet Seybold oral Tab 00:00: (2.5 mg 00 total) by mouth daily Midodrine Yes [id number] 2.5mg Take 1 K elsey HCl 2.5 MG 9-22 tablet Seybold oral Tab 00:00: (2.5 mg 00 total) by mouth daily Midodrine Yes [id number] 2.5mg Take 1 K elsey HCl 2.5 MG 9-22 tablet Seybold oral Tab 00:00: (2.5 mg 00 total) by mouth daily Midodrine Yes [id number] 2.5mg Take 1 K elsey HCl 2.5 MG 9-22 tablet Seybold oral Tab 00:00: (2.5 mg 00 total) by mouth daily Midodrine 0 Yes [id number] 2.5mg Take 1 K elsey HCl 2.5 MG 9-22 tablet Seybold oral Tab 00:00: (2.5 mg 00 total) by mouth daily Midodrine Yes [id number] 2.5mg Take 1 K elsey HCl 2.5 MG 9-22 tablet Seybold oral Tab 00:00: (2.5 mg 00 total) by mouth daily Midodrine Yes [id number] 2.5mg Take 1 K elsey HCl 2.5 MG 9-22 tablet Seybold oral Tab 00:00: (2.5 mg 00 total) by mouth daily Midodrine 0 Yes [id number] 2.5mg Take 1 K elsey HCl 2.5 MG 9-22 tablet Seybold oral Tab 00:00: (2.5 mg 00 total) by mouth daily Midodrine Yes [id number] 2.5mg Take 1 K elsey HCl 2.5 MG 9-22 tablet Seybold oral Tab 00:00: (2.5 mg 00 total) by mouth daily Midodrine 2021- No [id number] 2.5mg Take 1 Mayra HCl 2.5 MG 9- 06-03 tablet Seybol d oral Tab 00:00: 00:00 (2.5 mg 00 :00 total) by mouth daily midodrine 2020- No 2.5mg Take 2.[address] [facility] [address] [facility] (PROAMATINE 9- 04-24 [facility] ) 2.5 MG 00:00: 00:00 mouth. Medica l tablet 00 :00 Center Lorazepam 2020-0 Yes Lola 1 tablet M emoria 8-19 Lopez as needed l 02:45: Félix 46 Hydrocodone 2019-0 Yes Lola 2 tablets [facility] -Acetaminop 02-25 Lopez as needed l hen 02:45: Félix 46 Mirtazapine 2020-0 Yes Lola 1/2-1 Me moria 8-18 Lopez tablet at l 02:46: bedtime Félix Sumatriptan 2020-0 Yes Lola not Mem oria Succinate 8-18 Lopez defined l 02:46: Félix Rizatriptan 2020-0 Yes Lola not Mem oria Benzoate 8-18 Lopez defined l 02:46: Félix Topiramate 2020-0 Yes Lola not Shekhar clarice 8-18 Lopez defined l 02:46: Félix Promethazin 2020-0 Yes Lola 1 tablet Memoria e HCl 8-18 Lopez l 02:46: Félix Trazodone 2019-0 Yes Lola 1-3 Memor ia HCl 8-18 Lopez tablets at l 02:46: bedtime as Félix 27 needed BusPIRone 2020-0 Yes Lola 1 tablet M emoria HCl 8-18 Lopez l 02:46: Félix 24 Benztropine 2020-0 Yes Lola 1 tablet [facility] Mesylate 7-20 Lopez at bedtime l 00:00: Félix 00 Trazodone 2020-0 Yes Lola 1-3 Memor ia HCl 3-02 Lopez tablets at l 00:00: bedtime as Félix 00 needed Cholecalcif 2019-0 Yes [id number] 2000U Take 1 Mayra domenic 6-18 tablet Seybold (VITAMIN D) 00:00: (2,000 2000 units 00 units oral Tab total) by mouth daily Cholecalcif 2019-0 Yes [id number] 2000U Take 1 Mayra domenic 6-18 tablet Seybold (VITAMIN D) 00:00: (2,000 2000 units 00 units oral Tab total) by mouth daily Cholecalcif 2019-0 Yes [id number] 2000U Take 1 Mayra domenic 6-18 tablet Seybold (VITAMIN D) 00:00: (2,000 2000 units 00 units oral Tab total) by mouth daily Cholecalcif 2019-0 Yes [id number] 2000U Take 1 Mayra domenic 6-18 tablet Seybold (VITAMIN D) 00:00: (2,000 2000 units 00 units oral Tab total) by mouth daily Cholecalcif 2019-0 Yes [id number] 2000U Take 1 Mayra domenic 6-18 tablet Seybold (VITAMIN D) 00:00: (2,000 2000 units 00 units oral Tab total) by mouth daily Cholecalcif 2019-0 Yes [id number] 2000U Take 1 Mayra domenic 6-18 tablet Seybold (VITAMIN D) 00:00: (2,000 2000 units 00 units oral Tab total) by mouth daily Cholecalcif 2019-0 Yes [id number] 2000U Take 1 [facility] 6-18 tablet Seybold (VITAMIN D) 00:00: (2,000 2000 units 00 units oral Tab total) by mouth daily Cholecalcif 2019-0 Yes [id number] 2000U Take 1 [facility] 6-18 tablet Seybold (VITAMIN D) 00:00: (2,000 2000 units 00 units oral Tab total) by mouth daily Cholecalcif Yes [id number] 2000U Take 1 [facility] 6-18 tablet Seybold (VITAMIN D) 00:00: (2,000 2000 units 00 units oral Tab total) by mouth daily Cholecalcif Yes [id number] 2000U Take 1 [facility] 6-18 tablet Seybold (VITAMIN D) 00:00: (2,000 2000 units 00 units oral Tab total) by mouth daily ondansetron 2020- No 4mg Take [address] [facility] (ZOFRAN-ODT 16 10-30 tablet (4 Frank kes ) 4 MG 00:00: 00:00 mg total) Medic al disintegrat 00 :00 [address] [facility] ing tablet every 4 (four) hours as needed for Nausea for up to 10 doses. metroNIDAZO 2020- No TAKE [address] [facility] (FLAGYL) 07-19 TABLET BY Frank kes 500 MG 00:00: 00:00 MOUTH Medical tablet 00 :00 EVERY 6 Center HOURS FOR 10 DAYS promethazin 2020- No UNWRAP AND [facility] (PHENERGAN) 00:00: 00:00 RECTALLY 1 Medical 25 MG 00 :00 SUPPOSITOR [place] suppository Y EVERY 6 HOURS HYDROcodone 2017-07 Yes pain 2{tbl} Take [address] [facility] -acetaminop 2-24 tablets by Frank kes hen (NORCO) 00:00: mouth Medic al 10-325 mg 00 every 6 Center per tablet (six) hours as needed . tiZANidine 2017-07- No TAKE TWO [facility] (ZANAFLEX) 2-17 04-24 TABLETS BY Frank kes 4 MG tablet 00:00: 00:00 MOUTH Medi gabrielle 00 :00 EVERY Center NIGHT AT BEDTIME rizatriptan Yes 10mg Take [address] [facility] (MAXALT) 10 5-15 by mouth . Frank kes MG tablet 00:00: Medical 00 [place] SUMAtriptan Yes 100mg Take [address] (IMITREX) 5-15 [facility] MG 00:00: mouth . Medical tablet 00 Center Glucose Yes [id number] Use as Mayra Blood (ONE 02-03 instructed Sey bold TOUCH ULTRA 00:00: 1 time TEST) in daily vitro Strip Glucose Yes [id number] Use as Mayra Blood (ONE 02-03 instructed Sey bold TOUCH ULTRA 00:00: 1 time TEST) in daily vitro Strip Glucose Yes [id number] Use as Mayra Blood (ONE 02-03 instructed Sey bold TOUCH ULTRA 00:00: 1 time TEST) in daily vitro Strip Glucose Yes [id number] Use as Mayra Blood (ONE 02-03 instructed Sey bold TOUCH ULTRA 00:00: 1 time TEST) in daily vitro Strip Glucose Yes [id number] Use as Mayra Blood (ONE 02-03 instructed Sey bold TOUCH ULTRA 00:00: 1 time TEST) in daily vitro Strip Glucose Yes [id number] Use as Mayra Blood (ONE 02-03 instructed Sey bold TOUCH ULTRA 00:00: 1 time TEST) in daily vitro Strip Glucose Yes [id number] Use as Mayra Blood (ONE 02-03 instructed Sey bold TOUCH ULTRA 00:00: 1 time TEST) in daily vitro Strip Glucose Yes [id number] Use as Mayra Blood (ONE 02-03 instructed Sey bold TOUCH ULTRA 00:00: 1 time TEST) in daily vitro Strip Glucose Yes [id number] Use as Mayra Blood (ONE 02-03 instructed Sey bold TOUCH ULTRA 00:00: 1 time TEST) in daily vitro Strip Glucose Yes [id number] Use as Mayra Blood (ONE 02-03 instructed Sey bold TOUCH ULTRA 00:00: 1 time TEST) in daily vitro Strip ONE TOUCH Yes [id number] Use as Inga ey ULTRASOFT 5-22 instructed Seyb old LANCETS 00:00: 3 times d does not 00 aily apply Misc ONE TOUCH Yes [id number] Use as Inga ey ULTRASOFT 5-22 instructed Seyb old LANCETS 00:00: 3 times d does not 00 aily apply Misc ONE TOUCH Yes [id number] Use as Inga ey ULTRASOFT 5-22 instructed Seyb old LANCETS 00:00: 3 times d does not 00 aily apply Misc ONE TOUCH Yes [id number] Use as Inga ey ULTRASOFT 5-22 instructed Seyb old LANCETS 00:00: 3 times d does not 00 aily apply Misc ONE TOUCH Yes [id number] Use as Inga ey ULTRASOFT 5-22 instructed Seyb old LANCETS 00:00: 3 times d does not 00 aily apply Misc ONE TOUCH Yes [id number] Use as Inga ey ULTRASOFT 5-22 instructed Seyb old LANCETS 00:00: 3 times d does not 00 aily apply Misc ONE TOUCH Yes [id number] Use as Inga ey ULTRASOFT 5-22 instructed Seyb old LANCETS 00:00: 3 times d does not 00 aily apply Misc ONE TOUCH Yes [id number] Use as Inga ey ULTRASOFT 5-22 instructed Seyb old LANCETS 00:00: 3 times d does not 00 aily apply Misc ONE TOUCH Yes [id number] Use as Inga ey ULTRASOFT 5-22 instructed Seyb old LANCETS 00:00: 3 times d does not 00 aily apply Misc ONE TOUCH Yes [id number] Use as Inga ey ULTRASOFT 5-22 instructed Seyb old LANCETS 00:00: 3 times d does not 00 aily apply Misc Immunizations Ordered Immunization Filled Immunization Date Status Commen ts Source Name Name Influenza Virus 2021-05-12 Completed Mayra Doe ybold Vaccine, Quadrivalent, 00:00:00 High Dose, Age 65 And Up Influenza Virus 2021-05-12 Completed Mayra Doe ybold Vaccine, Quadrivalent, 00:00:00 High Dose, Age 65 And Up Influenza Virus 2021-05-12 Completed Mayra Doe ybold Vaccine, Quadrivalent, 00:00:00 High Dose, Age 65 And Up Influenza Virus 2021-05-12 Completed Mayra Se ybold Vaccine, Quadrivalent, 00:00:00 High Dose, Age 65 And Up Influenza Virus 2021-05-12 Completed Mayra Se ybold Vaccine, Quadrivalent, 00:00:00 High Dose, Age 65 And Up Influenza Virus 2021-05-12 Completed Mayra Doe ybold Vaccine, Quadrivalent, 00:00:00 High Dose, Age 65 And Up Influenza Virus 2021-05-12 Completed Mayra Doe ybold Vaccine, Quadrivalent, 00:00:00 High Dose, Age 65 And Up Pneumococcal Vaccine, 2020-12-01 Completed Matt sey Seybold Polysaccharide 00:00:00 Shingles IM (Shingrix) 2020-12-01 Completed Ke lsey Seybold 00:00:00 Pneumococcal Vaccine, 2020-12-01 Completed Matt sey Seybold Polysaccharide 00:00:00 Shingles IM (Shingrix) 2020-12-01 Completed Ke lsey Seybold 00:00:00 Pneumococcal Vaccine, 2020-12-01 Completed Matt sey Seybold Polysaccharide 00:00:00 Shingles IM (Shingrix) 2020-12-01 Completed Ke lsey Seybold 00:00:00 Pneumococcal Vaccine, 2020-12-01 Completed Matt sey Seybold Polysaccharide 00:00:00 Shingles IM (Shingrix) 2020-12-01 Completed Ke lsey Seybold 00:00:00 Pneumococcal Vaccine, 2020-12-01 Completed Matt sey Seybold Polysaccharide 00:00:00 Shingles IM (Shingrix) 2020-12-01 Completed Ke lsey Seybold 00:00:00 Pneumococcal Vaccine, 2020-12-01 Completed Matt sey Seybold Polysaccharide 00:00:00 Shingles IM (Shingrix) 2020-12-01 Completed Ke lsey Seybold 00:00:00 Pneumococcal Vaccine, 2020-12-01 Completed Matt sey Seybold Polysaccharide 00:00:00 Shingles IM (Shingrix) 2020-12-01 Completed Ke lsey Seybold 00:00:00 Pneumococcal Vaccine, 2020-12-01 Completed Matt sey Seybold Polysaccharide 00:00:00 Shingles IM (Shingrix) 2020-12-01 Completed Ke lsey Seybold 00:00:00 Pneumococcal Vaccine, 2020-12-01 Completed Matt sey Seybold Polysaccharide 00:00:00 Shingles IM (Shingrix) 2020-12-01 Completed Ke lsey Seybold 00:00:00 Pneumococcal Vaccine, 2020-12-01 Completed Matt sey Seybold Polysaccharide 00:00:00 Shingles IM (Shingrix) 2020-12-01 Completed Ke lsey Seybold 00:00:00 Covid-19 Vaccine 2020-10-08 Completed Mayra luna (Moderna), Mrna-lnp, 00:00:00 Spencer Protein, Pf, 100 Mcg/0.5ml,IM Covid-19 Vaccine 2020-10-08 Completed Mayar luna (Moderna), Mrna-lnp, 00:00:00 Spencer Protein, Pf, 100 Mcg/0.5ml,IM Covid-19 Vaccine 2020-10-08 Completed Mayra luna (Moderna), Mrna-lnp, 00:00:00 Spencer Protein, Pf, 100 Mcg/0.5ml,IM Covid-19 Vaccine 2020-10-08 Completed Mayra luna (Moderna), Mrna-lnp, 00:00:00 Spencer Protein, Pf, 100 Mcg/0.5ml,IM Covid-19 Vaccine 2020-10-08 Completed Mayra luna (Moderna), Mrna-lnp, 00:00:00 Spencer Protein, Pf, 100 Mcg/0.5ml,IM Covid-19 Vaccine 2020-10-08 Completed Mayra luna Moderna (Spikevax), 00:00:00 Mrna-lnp, Spencer Protein, Pf Covid-19 Vaccine 2020-10-08 Completed Mayra luna Moderna (Spikevax), 00:00:00 Mrna-lnp, Spencer Protein, Pf Covid-19 Vaccine 2020-10-08 Completed Mayra luna Moderna (Spikevax), 00:00:00 Mrna-lnp, Spencer Protein, Pf Covid-19 Vaccine 2020-10-08 Completed Mayra luna Moderna (Spikevax), 00:00:00 Mrna-lnp, Spencer Protein, Pf Covid-19 Vaccine 2020-10-08 Completed Mayra luna Moderna (Spikevax), 00:00:00 Mrna-lnp, Spencer Protein, Pf Covid-19 Vaccine 2020-09-10 Completed Mayra luna (Moderna), Mrna-lnp, 00:00:00 Spencer Protein, Pf, 100 Mcg/0.5ml,IM Covid-19 Vaccine 2020-09-10 Completed Mayra luna (Moderna), Mrna-lnp, 00:00:00 Spencer Protein, Pf, 100 Mcg/0.5ml,IM Covid-19 Vaccine 2020-09-10 Completed Mayra Carroll eybold (Moderna), Mrna-lnp, 00:00:00 Spencer Protein, Pf, 100 Mcg/0.5ml,IM Covid-19 Vaccine 2020-09-10 Completed Mayra Carroll eybold (Moderna), Mrna-lnp, 00:00:00 Spencer Protein, Pf, 100 Mcg/0.5ml,IM Covid-19 Vaccine 2020-09-10 Completed Mayra Carroll eybold (Moderna), Mrna-lnp, 00:00:00 Spencer Protein, Pf, 100 Mcg/0.5ml,IM Covid-19 Vaccine 2020-09-10 Completed Mayra Carroll eybold Moderna (Spikevax), 00:00:00 Mrna-lnp, Spencer Protein, Pf Covid-19 Vaccine 2020-09-10 Completed Mayra Carroll eybold Moderna (Spikevax), 00:00:00 Mrna-lnp, Spencer Protein, Pf Covid-19 Vaccine 2020-09-10 Completed Mayra Carroll eybold Moderna (Spikevax), 00:00:00 Mrna-lnp, Spencer Protein, Pf Covid-19 Vaccine 2020-09-10 Completed Mayra Carroll eybold Moderna (Spikevax), 00:00:00 Mrna-lnp, Spencer Protein, Pf Covid-19 Vaccine 2020-09-10 Completed Mayra Carroll eybold Moderna (Spikevax), 00:00:00 Mrna-lnp, Spencer Protein, Pf Influenza Virus 2020-03-17 Completed Mayra Se ybold Vaccine, Quadrivalent, 00:00:00 High Dose, Age 65 And Up Influenza Virus 2020-03-17 Completed Mayra Se ybold Vaccine, Quadrivalent, 00:00:00 High Dose, Age 65 And Up Influenza Virus 2020-03-17 Completed Mayra Se ybold Vaccine, Quadrivalent, 00:00:00 High Dose, Age 65 And Up Influenza Virus 2020-03-17 Completed Mayra Se ybold Vaccine, Quadrivalent, 00:00:00 High Dose, Age 65 And Up Influenza Virus 2020-03-17 Completed Mayra Se ybold Vaccine, Quadrivalent, 00:00:00 High Dose, Age 65 And Up Influenza Virus 2020-03-17 Completed Mayra Se ybold Vaccine, Quadrivalent, 00:00:00 High Dose, Age 65 And Up Influenza Virus 2020-03-17 Completed Mayra Se ybold Vaccine, Quadrivalent, 00:00:00 High Dose, Age 65 And Up Influenza Virus 2020-03-17 Completed Mayra Se ybold Vaccine, Quadrivalent, 00:00:00 High Dose, Age 65 And Up Influenza Virus 2020-03-17 Completed Mayra Se ybold Vaccine, Quadrivalent, 00:00:00 High Dose, Age 65 And Up Influenza Virus 2020-03-17 Completed Mayra Se ybold Vaccine, Quadrivalent, 00:00:00 High Dose, Age 65 And Up Influenza Virus 2019-06-12 Completed Mayra Se ybold Vaccine, age 6 months 00:00:00 and up Influenza Virus 2019-06-12 Completed Mayra Se ybold Vaccine, age 6 months 00:00:00 and up Influenza Virus 2019-06-12 Completed Mayra Se ybold Vaccine, age 6 months 00:00:00 and up Influenza Virus 2019-06-12 Completed Mayra Se ybold Vaccine, age 6 months 00:00:00 and up Influenza Virus 2019-06-12 Completed Mayra Se ybold Vaccine, age 6 months 00:00:00 and up Influenza Virus 2019-06-12 Completed Mayra Se ybold Vaccine, age 6 months 00:00:00 and up Influenza Virus 2019-06-12 Completed Mayra Se ybold Vaccine, age 6 months 00:00:00 and up Influenza Virus 2019-06-12 Completed Mayra Se ybold Vaccine, age 6 months 00:00:00 and up Influenza Virus 2019-06-12 Completed Mayra Se ybold Vaccine, age 6 months 00:00:00 and up Influenza Virus 2019-06-12 Completed Mayra Se ybold Vaccine, age 6 months 00:00:00 and up Influenza Virus 2017-04-19 Completed Mayra Se ybold Vaccine, age 6 months 00:00:00 and up Influenza Virus 2017-04-19 Completed Mayra Se ybold Vaccine, age 6 months 00:00:00 and up Influenza Virus 2017-04-19 Completed Mayra Se ybold Vaccine, age 6 months 00:00:00 and up Influenza Virus 2017-04-19 Completed Mayra Se ybold Vaccine, age 6 months 00:00:00 and up Influenza Virus 2017-04-19 Completed Mayra Se ybold Vaccine, age 6 months 00:00:00 and up Influenza Virus 2017-04-19 Completed Mayra Se ybold Vaccine, age 6 months 00:00:00 and up Influenza Virus 2017-04-19 Completed Mayra Se ybold Vaccine, age 6 months 00:00:00 and up Influenza Virus 2017-04-19 Completed Mayra Se ybold Vaccine, age 6 months 00:00:00 and up Influenza Virus 2017-04-19 Completed Mayra Se ybold Vaccine, age 6 months 00:00:00 and up Influenza Virus 2017-04-19 Completed Mayra Se ybold Vaccine, age 6 months 00:00:00 and up Influenza Virus 2016-04-29 Completed Mayra Se ybold Vaccine, age 6 months 00:00:00 and up Influenza Virus 2016-04-29 Completed Mayra Se ybold Vaccine, age 6 months 00:00:00 and up Influenza Virus 2016-04-29 Completed Mayra Se ybold Vaccine, age 6 months 00:00:00 and up Influenza Virus 2016-04-29 Completed Mayra Se ybold Vaccine, age 6 months 00:00:00 and up Influenza Virus 2016-04-29 Completed Mayra Se ybold Vaccine, age 6 months 00:00:00 and up Influenza Virus 2016-04-29 Completed Mayra Se ybold Vaccine, age 6 months 00:00:00 and up Influenza Virus 2016-04-29 Completed Mayra Se ybold Vaccine, age 6 months 00:00:00 and up Influenza Virus 2016-04-29 Completed Mayra Se ybold Vaccine, age 6 months 00:00:00 and up Influenza Virus 2016-04-29 Completed Mayra Se ybold Vaccine, age 6 months 00:00:00 and up Influenza Virus 2016-04-29 Completed Mayra Se ybold Vaccine, age 6 months 00:00:00 and up Influenza Virus 2015-04-23 Completed Mayra Se ybold Vaccine, age 6 months 00:00:00 and up Influenza Virus 2015-04-23 Completed Mayra Se ybold Vaccine, age 6 months 00:00:00 and up Influenza Virus 2015-04-23 Completed Mayra Se ybold Vaccine, age 6 months 00:00:00 and up Influenza Virus 2015-04-23 Completed Mayra Se ybold Vaccine, age 6 months 00:00:00 and up Influenza Virus 2015-04-23 Completed Mayra Se ybold Vaccine, age 6 months 00:00:00 and up Influenza Virus 2015-04-23 Completed Mayra Se ybold Vaccine, age 6 months 00:00:00 and up Influenza Virus 2015-04-23 Completed Mayra Se ybold Vaccine, age 6 months 00:00:00 and up Influenza Virus 2015-04-23 Completed Mayra Se ybold Vaccine, age 6 months 00:00:00 and up Influenza Virus 2015-04-23 Completed Mayra Se ybold Vaccine, age 6 months 00:00:00 and up Influenza Virus 2015-04-23 Completed Mayra Se ybold Vaccine, age 6 months 00:00:00 and up Tdap- (Boostrix, 2015-02-10 Completed Mayra S eybold Adacel) 00:00:00 Tdap- (Boostrix, 2015-02-10 Completed Mayra S eybold Adacel) 00:00:00 Tdap- (Boostrix, 2015-02-10 Completed Mayra S eybold Adacel) 00:00:00 Tdap- (Boostrix, 2015-02-10 Completed Mayra S eybold Adacel) 00:00:00 Tdap- (Boostrix, 2015-02-10 Completed Mayra S eybold Adacel) 00:00:00 Tdap- (Boostrix, 2015-02-10 Completed Mayra S eybold Adacel) 00:00:00 Tdap- (Boostrix, 2015-02-10 Completed Mayra S eybold Adacel) 00:00:00 Tdap- (Boostrix, 2015-02-10 Completed Mayra S eybold Adacel) 00:00:00 Tdap- (Boostrix, 2015-02-10 Completed Mayra S eybold Adacel) 00:00:00 Tdap- (Boostrix, 2015-02-10 Completed Mayra S eybold Adacel) 00:00:00 Influenza Virus 2014-04-30 Completed Mayra Se ybold Vaccine, age 6 months 00:00:00 and up Influenza Virus 2014-04-30 Completed Mayra Se ybold Vaccine, age 6 months 00:00:00 and up Influenza Virus 2014-04-30 Completed Mayra Se ybold Vaccine, age 6 months 00:00:00 and up Influenza Virus 2014-04-30 Completed Mayra Se ybold Vaccine, age 6 months 00:00:00 and up Influenza Virus 2014-04-30 Completed Mayra Se ybold Vaccine, age 6 months 00:00:00 and up Influenza Virus 2014-04-30 Completed Mayra Se ybold Vaccine, age 6 months 00:00:00 and up Influenza Virus 2014-04-30 Completed Mayra Se ybold Vaccine, age 6 months 00:00:00 and up Influenza Virus 2014-04-30 Completed Mayra Se ybold Vaccine, age 6 months 00:00:00 and up Influenza Virus 2014-04-30 Completed Mayra Se ybold Vaccine, age 6 months 00:00:00 and up Influenza Virus 2014-04-30 Completed Mayra Se ybold Vaccine, age 6 months 00:00:00 and up Shingles SQ (Zostavax) 2013-07-10 Completed Ke lsey Seybold 00:00:00 Shingles SQ (Zostavax) 2013-07-10 Completed Ke lsey Seybold 00:00:00 Shingles SQ (Zostavax) 2013-07-10 Completed Ke lsey Seybold 00:00:00 Shingles SQ (Zostavax) 2013-07-10 Completed Ke lsey Seybold 00:00:00 Shingles SQ (Zostavax) 2013-07-10 Completed Ke lsey Seybold 00:00:00 Shingles SQ (Zostavax) 2013-07-10 Completed Ke lsey Seybold 00:00:00 Shingles SQ (Zostavax) 2013-07-10 Completed Ke lsey Seybold 00:00:00 Shingles SQ (Zostavax) 2013-07-10 Completed Ke lsey Seybold 00:00:00 Shingles SQ (Zostavax) 2013-07-10 Completed Ke lsey Seybold 00:00:00 Shingles SQ (Zostavax) 2013-07-10 Completed Ke lsey Seybold 00:00:00 Influenza Virus 2013-05-07 Completed Mayra Se ybold Vaccine, age 6 months 00:00:00 and up Influenza Virus 2013-05-07 Completed Mayra Se ybold Vaccine, age 6 months 00:00:00 and up Influenza Virus 2013-05-07 Completed Mayra Se ybold Vaccine, age 6 months 00:00:00 and up Influenza Virus 2013-05-07 Completed Mayra Se ybold Vaccine, age 6 months 00:00:00 and up Influenza Virus 2013-05-07 Completed Mayra Se ybold Vaccine, age 6 months 00:00:00 and up Influenza Virus 2013-05-07 Completed Mayra Se ybold Vaccine, age 6 months 00:00:00 and up Influenza Virus 2013-05-07 Completed Mayra Se ybold Vaccine, age 6 months 00:00:00 and up Influenza Virus 2013-05-07 Completed Mayra Se ybold Vaccine, age 6 months 00:00:00 and up Influenza Virus 2013-05-07 Completed Mayra Se ybold Vaccine, age 6 months 00:00:00 and up Influenza Virus 2013-05-07 Completed Mayra Se ybold Vaccine, age 6 months 00:00:00 and up Pneumococcal Vaccine, 2012-03-01 Completed Matt sey Seybold Polysaccharide 00:00:00 Pneumococcal Vaccine, 2012-03-01 Completed Matt sey Seybold Polysaccharide 00:00:00 Pneumococcal Vaccine, 2012-03-01 Completed Matt sey Seybold Polysaccharide 00:00:00 Pneumococcal Vaccine, 2012-03-01 Completed Matt sey Seybold Polysaccharide 00:00:00 Pneumococcal Vaccine, 2012-03-01 Completed Matt sey Seybold Polysaccharide 00:00:00 Pneumococcal Vaccine, 2012-03-01 Completed Matt sey Seybold Polysaccharide 00:00:00 Pneumococcal Vaccine, 2012-03-01 Completed Matt sey Seybold Polysaccharide 00:00:00 Pneumococcal Vaccine, 2012-03-01 Completed Matt sey Seybold Polysaccharide 00:00:00 Pneumococcal Vaccine, 2012-03-01 Completed Matt sey Seybold Polysaccharide 00:00:00 Pneumococcal Vaccine, 2012-03-01 Completed Matt sey Seybold Polysaccharide 00:00:00 Vital Signs Vital Name Observation Time Observation Value Comments Source Systolic blood 2021-12-10 16:41:00 132 mm[Hg] Mayra Seybold pressure Diastolic blood 2021-12-10 16:41:00 68 mm[Hg] Mattse y Seybold pressure Heart rate 2021-12-10 16:41:00 60 /min Mayra luna Respiratory rate 2021-12-10 16:41:00 16 /min Inga ey Seybold Body height 2021-12-10 16:41:00 167.6 cm Mayra S eybold Body weight 2021-12-10 16:41:00 89.359 kg Mayra S eybold BMI 2021-12-10 16:41:00 31.80 kg/m2 Mayra S eybold Systolic blood 2021-11-18 18:57:00 112 mm[Hg] Mayra Seybold pressure Diastolic blood 2021-11-18 18:57:00 56 mm[Hg] Kelse y Seybold pressure Heart rate 2021-11-18 18:57:00 96 /min Mayra S eybold Body temperature 2021-11-18 18:57:00 36.72 April Inga ey Seybold Respiratory rate 2021-11-18 18:57:00 14 /min Inga ey Seybold Body height 2021-11-18 18:57:00 167.6 cm Mayra S eybold Body weight 2021-11-18 18:57:00 91.173 kg Mayra S eybold BMI 2021-11-18 18:57:00 32.44 kg/m2 Mayra S eybold Oxygen saturation in 2021-11-18 18:57:00 99 /min Mayra Seybold Arterial blood by Pulse oximetry Systolic blood 2021-11-11 15:40:00 101 mm[Hg] Mayra Seybold pressure Diastolic blood 2021-11-11 15:40:00 59 mm[Hg] Kelse y Seybold pressure Heart rate 2021-11-11 15:40:00 121 /min Mayra S eybold Body temperature 2021-11-11 15:40:00 36.17 April Inga ey Seybold Respiratory rate 2021-11-11 15:40:00 14 /min Inga ey Seybold Body height 2021-11-11 15:40:00 167.6 cm Mayra S eybold Body weight 2021-11-11 15:40:00 87.998 kg Mayra S eybold BMI 2021-11-11 15:40:00 31.31 kg/m2 Mayra S eybold Oxygen saturation in 2021-11-11 15:40:00 99 /min Mayra Seybold Arterial blood by Pulse oximetry Systolic blood 2021-10-26 15:59:00 116 mm[Hg] Mayra Seybold pressure Diastolic blood 2021-10-26 15:59:00 72 mm[Hg] Kelse y Seybold pressure Heart rate 2021-10-26 15:59:00 72 /min Mayra S eybold Body temperature 2021-10-26 15:59:00 36.61 April Inga ey Seybold Respiratory rate 2021-10-26 15:59:00 17 /min Inga ey Seybold Body height 2021-10-26 15:59:00 167.6 cm Mayra S eybold Body weight 2021-10-26 15:59:00 85.276 kg Mayra S eybold BMI 2021-10-26 15:59:00 30.34 kg/m2 Mayra S eybold Systolic blood 2021-09-08 17:59:00 120 mm[Hg] Mayra Seybold pressure Diastolic blood 2021-09-08 17:59:00 80 mm[Hg] Kelse y Seybold pressure Heart rate 2021-09-08 17:59:00 98 /min Mayra S eybold Body weight 2021-09-08 17:59:00 80.287 kg Mayra S eybold BMI 2021-09-08 17:59:00 28.57 kg/m2 Mayra S eybold Systolic blood 2021-07-28 16:41:00 122 mm[Hg] Mayra Seybold pressure Diastolic blood 2021-07-28 16:41:00 58 mm[Hg] Kelse y Seybold pressure Heart rate 2021-07-28 16:41:00 110 /min Mayra S eybold Body temperature 2021-07-28 16:41:00 36.67 April Inga ey Seybold Respiratory rate 2021-07-28 16:41:00 15 /min Inga ey Seybold Body height 2021-07-28 16:41:00 167.6 cm Mayra S eybold Body weight 2021-07-28 16:41:00 79.379 kg Mayra S eybold BMI 2021-07-28 16:41:00 28.25 kg/m2 Mayra S eybold Systolic blood 2021-06-10 19:33:00 114 mm[Hg] Mayra Seybold pressure Diastolic blood 2021-06-10 19:33:00 60 mm[Hg] Kelse y Seybold pressure Heart rate 2021-06-10 19:33:00 62 /min Mayra S eybold Respiratory rate 2021-06-10 19:33:00 16 /min Inga ey Seybold Body weight 2021-06-10 19:33:00 73.936 kg Mayra S eybold BMI 2021-06-10 19:33:00 26.31 kg/m2 Mayra S eybold Systolic blood 2021-04-01 19:59:00 113 mm[Hg] Mayra Seybold pressure Diastolic blood 2021-04-01 19:59:00 78 mm[Hg] Kelse y Seybold pressure Heart rate 2021-04-01 19:59:00 98 /min Mayra S eybold Body temperature 2021-04-01 19:59:00 36.44 April Inga ey Seybold Respiratory rate 2021-04-01 19:59:00 18 /min Inga ey Seybold Body height 2021-04-01 19:59:00 167.6 cm Mayra Carroll eybold Body weight 2021-04-01 19:59:00 74.798 kg Mayra Carroll eybold BMI 2021-04-01 19:59:00 26.62 kg/m2 Mayra hernándezbold Oxygen saturation in 2021-04-01 19:59:00 98 /min Mayra Ramon Arterial blood by Pulse oximetry WEIGHT 2020-11-04 05:16:00 75.07 kg WEIGHT 2020-11-03 04:46:00 75.025 kg WEIGHT 2020-10-31 13:23:00 72.576 kg HEIGHT 2020-10-31 13:23:00 167.6 cm WEIGHT 2020-10-30 21:03:00 72.576 kg WEIGHT 2020-11-04 05:16:00 75.07 kg WEIGHT 2020-11-03 04:46:00 75.025 kg WEIGHT 2020-10-31 13:23:00 72.576 kg HEIGHT 2020-10-31 13:23:00 167.6 cm WEIGHT 2020-10-30 21:03:00 72.576 kg Weight 2021-02-05 13:45:00 [facility] Height 2021-02-05 13:45:00 [facility] Weight 2020-12-11 14:20:00 [facility] Height 2020-12-11 14:20:00 [facility] Weight 2020-11-11 14:00:00 [facility] Height 2020-11-11 14:00:00 [facility] Systolic blood 2020-11-07 11:17:00 131 mm[Hg] [facility] Diastolic blood 2020-11-07 11:17:00 60 mm[Hg] [facility] Heart rate 2020-11-07 11:17:00 81 /min [facility] Body temperature 2020-11-07 11:17:00 36.61 April [facility] Respiratory rate 2020-11-07 11:17:00 18 /min [facility] Oxygen saturation in 2020-11-07 11:17:00 96 /min [facility] Arterial blood by [facility] Pulse oximetry Body weight 2020-11-04 05:16:00 75.07 kg [facility] BMI 2020-11-04 05:16:00 26.71 kg/m2 [facility] Body height 2020-10-31 13:23:00 167.6 cm [facility] Weight 2020-10-12 19:30:00 [facility] Height 2020-10-12 19:30:00 [facility] Weight 2020-09-09 19:00:00 [facility] Weight 2020-08-12 20:30:00 [facility] Weight 2020-07-01 21:00:00 [facility] Weight 2020-06-09 15:45:00 [facility] Weight 2020-05-14 16:30:00 [facility] Weight 2020-04-21 16:30:00 [facility] Weight 2020-02-25 16:00:00 [facility] Weight 2020-01-27 15:30:00 [facility] Weight 2019-12-30 14:45:00 [facility] Weight 2019-12-06 14:30:00 [facility] Weight 2019-11-06 16:30:00 [facility] Height 2019-11-06 16:30:00 [facility] Weight 2019-07-16 19:45:00 [facility] Height 2019-07-16 19:45:00 [facility] Heart Rate 2019-07-16 19:45:00 [facility] Diastolic (mm Hg) 2019-07-16 19:45:00 [facility] Systolic (mm Hg) 2019-07-16 19:45:00 [facility] Weight 2019-06-10 20:00:00 [facility] Height 2019-06-10 20:00:00 [facility] Heart Rate 2019-06-10 20:00:00 [facility] Diastolic (mm Hg) 2019-06-10 20:00:00 [facility] Systolic (mm Hg) 2019-06-10 20:00:00 [facility] Procedures Procedure Date / Time Performing Clinician Source Performed POCT-GLUCOSE METER 2020-11-07 11:18:00 Blanco Hickman [facility] POCT-GLUCOSE METER 2020-11-07 07:06:00 Blanco Hickman [facility] SARS-COV2/RT-PCR ([facility] 2020-11-07 04:40:00 [facility]SE [facility] 2020-11-06 21:03:00 Blanco Hickman [facility] POCT-GLUCOSE METER 2020-11-06 16:32:00 Blanco Hickman [facility] POCT-GLUCOSE METER 2020-11-06 11:19:00 Blanco Hickman [facility] POCT-GLUCOSE METER 2020-11-06 07:54:00 Blanco Hickman [facility] POCT-GLUCOSE METER 2020-11-05 23:44:00 Blanco Hickman [facility] POCT-GLUCOSE METER 2020-11-05 18:58:00 Blanco Hickman [facility] ECG 12-LEAD 2020-11-05 13:58:01 Blanco Hickman [facility] POCT-GLUCOSE METER 2020-11-05 11:47:00 Blanco Hickman [facility] POCT-GLUCOSE METER 2020-11-05 05:57:00 Blanco Hickman [facility] [facility] BASIC METABOLIC PANEL (7) 2020-11-05 05:42:00 Blanco Hickman [facility] I [facility] MAGNESIUM 2020-11-05 05:42:00 Blanco Hickman [facility] PHOSPHORUS 2020-11-05 05:42:00 Blanco Hickman [facility] POCT-GLUCOSE METER 2020-11-05 00:33:00 Blanco Hickman Lin [facility] POCT-GLUCOSE METER 2020-11-04 18:20:00 [facility] ANAEROBIC CULTURE 2020-11-04 16:19:16 Sarahi [facility] AFB CULTURE + SMEAR 2020-11-04 16:19:16 Sarahi [facility] (NON-SPUTUM) [facility] FUNGUS CULTURE + SMEAR 2020-11-04 16:19:16 Sarahi [facility] SURGICALLY OBTAINED 2020-11-04 16:19:16 Sarahi [facility] CULTURE + GRAM STAIN [facility] ter SPIN/CONCENTRATION CHARGE 2020-11-04 16:19:00 Asad Mcclain [facility] I&D,ABSCESS ABDOMINAL 2020-11-04 15:30:00 Sarahi Asad [facility] POCT-GLUCOSE METER 2020-11-04 11:29:00 Blanco Hickman [facility] POCT-GLUCOSE METER 2020-11-04 05:59:00 Blanco Hickman Lin [facility] BASIC METABOLIC PANEL (7) 2020-11-04 04:17:00 Blanco Hickman I [facility] MAGNESIUM 2020-11-04 04:17:00 Blanco Hickman [facility] PHOSPHORUS 2020-11-04 04:17:00 Blanco Hickman [facility] ABORH, MANUAL 2020-11-04 00:41:00 Genet Seaman [facility] POCT-GLUCOSE METER 2020-11-03 23:41:00 Blanco Hickman [facility] TYPE AND SCREEN, AUTOMATED 2020-11-03 20:06:00 Cristi Calloway [facility] POCT-GLUCOSE METER 2020-11-03 18:03:00 Blanco Hickman [facility] POCT-GLUCOSE METER 2020-11-03 11:20:00 Blanco Hickman [facility] POCT-GLUCOSE METER 2020-11-03 05:47:00 Blanco Hickman [facility] CBC W/PLT COUNT & AUTO 2020-11-03 05:04:00 Blanco Hickman [facility] CBC W/PLT COUNT & AUTO 2020-11-03 05:04:00 Blanco Hickman [facility] BASIC METABOLIC PANEL (7) 2020-11-03 05:03:00 Blanco Hickman [facility] I [facility] MAGNESIUM 2020-11-03 05:03:00 Blanco Hickman [facility] PHOSPHORUS 2020-11-03 05:03:00 Blanco Hickman [facility] TRIGLYCERIDES 2020-11-03 05:03:00 Blanco Hickman [facility] POCT-GLUCOSE METER 2020-11-02 23:41:00 Blanco Hickman [facility] C. DIFFICILE GDH TOXIN 2020-11-02 20:23:00 Amanda Paredes [facility] I [facility] POCT-GLUCOSE METER 2020-11-02 15:48:00 Blanco Hickman [facility] POCT-GLUCOSE METER 2020-11-02 11:24:00 Blanco Hickman [facility] POCT-GLUCOSE METER 2020-11-02 06:01:00 Erasmo Santoyoessa [facility] CBC W/PLT COUNT & AUTO 2020-11-02 05:04:00 Wellmarina Bibi [facility] DIFFERENTIAL [facility] BASIC METABOLIC PANEL (7) 2020-11-02 05:04:00 [facility]senberg sa [facility] CBC W/PLT COUNT & AUTO 2020-11-02 05:04:00 [facility] DIFFERENTIAL [facility] (CELLAVISION MANUAL DIFF) 2020-11-02 05:04:00 [facility] POCT-GLUCOSE METER 2020-11-01 20:13:00 [facility] XR CHEST 1 VIEW PORTABLE / 2020-11-01 12:14:00 Orlin Schmid [facility] BASIC METABOLIC PANEL (7) 2020-11-01 05:44:00 [facility] HEPATIC FUNCTION PANEL 2020-11-01 05:44:00 [facility] Bibi [facility] CBC W/PLT COUNT & AUTO 2020-11-01 05:44:00 [facility] DIFFERENTIAL [facility] CBC W/PLT COUNT & AUTO 2020-11-01 05:44:00 [facility] DIFFERENTIAL [facility] CT ABDOMEN/PELVIS WITH IV 2020-10-30 23:06:00 Rustam [facility] CONTRAST [facility] SARS-COV2/RT-PCR ([facility] & 2020-10-30 22:10:00 Rustam Garcia [facility] REF LABS) [facility] BLOOD CULTURE 2020-10-30 22:06:00 Rustam Garcia [facility] CBC W/PLT COUNT & AUTO 2020-10-30 22:03:00 Rustam Garcia [facility] LACTIC ACID, VENOUS 2020-10-30 22:03:00 Radha Rustam Rickn [facility] COMPREHENSIVE METABOLIC 2020-10-30 22:03:00 Radha Rustam Anika I [facility] PROTHROMBIN TIME/INR 2020-10-30 22:03:00 Garcia, Rustam Rickn [facility] S t [facility] APTT 2020-10-30 22:03:00 Radha Rustam Anika [facility] CBC W/PLT COUNT & AUTO 2020-10-30 22:03:00 Radha Rustam Anika [facility] BLOOD CULTURE 2020-10-30 22:03:00 Garcia, Rustam Rickn [facility] BLOOD CULTURE 2020-10-30 22:03:00 Radha Rustam Rickn [facility] IDENTIFICATION PANEL [facility] Plan of Care Planned Activity Planned Date Details Comments Source Future Scheduled 2030-10-[address] [facility] 00:[facility] colon (procedure) [code = 609282230] Future Scheduled 2025-02-10 DTAP/TDAP/TD VACCINES [facility] 00:00:00 (2 - Td or Tdap) [code Medic mo Center = DTAP/TDAP/TD VACCINES (2 - Td or Tdap)] Future Scheduled 2021-03-10 INFLUENZA VACCINE (#1) C [facility] 00:00:00 [code = INFLUENZA Medical Ce nter VACCINE (#1)] Future Scheduled 2020-07-[address] [facility] Test 00:00:00 (12+) [code = Medical Center DEPRESSION SCREENING (12+)] Future Scheduled 2020-07-10 FALLS RISK SCREENING [facility] Test 00:00:00 [code = FALLS RISK Medical C enter SCREENING] Future Scheduled 2019-12-13 PNEUMOCOCCAL 65+ YRS [facility] Test 00:00:00 (1 of 1 - Medical Center EQCV10_Dxatubs PCV13) [code = PNEUMOCOCCAL 65+ YRS (1 of 1 - YLJV12_Jdtqbrf PCV13)] Future Scheduled 2019-07-[address] [facility] Test 00:00:00 WELLNESS (YEAR 2 or Medical Center FIRST YEAR if no IPPE) [code = MEDICARE ANNUAL WELLNESS (YEAR 2 or FIRST YEAR if no IPPE)] Future Scheduled 2013-09-04 SHINGLES VACCINES ([address] [facility] Test 00:00:00 of 3) [code = SHINGLES Medic al Center VACCINES (2 of 3)] Future Scheduled 1972 HEPATITIS C SCREENING [facility] 00:00:00 [code = HEPATITIS C Medical Center SCREENING] Future Scheduled [address] [facility] 00:[facility]00 [facility]procedure) [code = 901795911] Encounters Start End Encounter Admission Attending Care Care Encounter Source Date/Time Date/Time Type Type Clinicians Facility Department ID 2021-04-01 Outpatient [id number] Memoria 14:46:56 [id number] Fallentimber [id number] 2020-05-02 Inpatient [facility] [id number] [facility] 13:29:00 [id number] [facility] 2022-03-23 2022-03-23 Outpatient MAYRA JOY [id number] Mayra 11:15:00 11:15:00 JENSEN Seybol d 2022-02-16 2022-02-16 Outpatient MAYRA SHEETS [id number] Mayra 15:15:00 15:15:00 AHMED Seybol d 2022-02-01 2022-02-01 Outpatient MAYRA BAUER [id number] Mayra 00:00:00 00:00:00 ILDEFONSO Seybol d 2022-01-31 2022-01-31 Outpatient MAYRA JOY [id number] Mayra 00:00:00 00:00:00 JENSEN Seybol d 2022-01-26 2022-01-26 Outpatient MAYRA BAUER [id number] Mayra 00:00:00 00:00:00 ILDEFONSO Seybol d 2022-01-25 2022-01-25 Outpatient EDDIE LOPEZ MAYRA ENRIQUEZ [id number] Mayra 10:45:00 10:45:00 Seybol d 2022-01-21 2022-01-21 Outpatient MAYRA BAUER [id number] Mayra 00:00:00 00:00:00 ILDEFONSO Seybol d 2022-01-20 2022-01-20 Outpatient MAYRA BAUER [id number] Mayra 00:00:00 00:00:00 ILDEFONSO Seybol d 2022-01-19 2022-01-19 Outpatient MAYRA BAUER [id number] Mayra 00:00:00 00:00:00 ILDEFONSO Seybol d 2022-01-11 2022-01-11 Outpatient MAYRA BAUER [id number] Mayra 00:00:00 00:00:00 ILDEFONSO Seybol d 2022-01-07 2022-01-07 Outpatient LAB90 MAYRA ENRIQUEZ [id number] Mayra 10:15:00 10:15:00 Seybol d 2022-01-07 2022-01-07 Office Eddie Bauer [id number] Mayra 09:15:00 10:00:00 Visit Ildefonso Hernandez [id number] Se ybold Somogyi 1.2.7.2.686 [id number] 2022-01-05 2022-01-05 Outpatient MAYRA JOY [id number] Mayra 00:00:00 00:00:00 JENSEN Seybol d 2021-12-13 2021-12-13 Outpatient MAYRA JOY [id number] Mayra 00:00:00 00:00:00 JENSEN Seybol d 2021-12-10 2021-12-10 Office MIA Joy [id number] Mayra 11:45:00 12:00:00 Visit [facility] [id number] Se ybold [id number] 2021-12-02 2021-12-02 Outpatient MAYRA BAUER [id number] Mayra 00:00:00 00:00:00 ILDEFONSO Seybol d 2021-12-02 2021-12-02 Outpatient MAYRA ESPINOZA [id number] Mayra 00:00:00 00:00:00 MUHAMMED Seybo ld 2021-11-25 2021-11-25 Outpatient MAYRA BAUER [id number] Mayra 09:00:00 09:00:00 ILDEFONSO Seybol d 2021-11-18 2021-11-18 Outpatient LAB90 MAYRA ENRIQUEZ [id number] Mayra 14:40:00 14:40:00 Seybol d 2021-11-18 2021-11-18 Office Eddie Bauer [id number] Mayra 14:00:00 14:15:00 Visit Ildefonso Ng [id number] Se ybold Somogyi 1.2.7.2.686 [id number] 2021-11-15 2021-11-15 Outpatient MAYRA JOY [id number] Mayra 00:00:00 00:00:00 JENSEN Seybol d 2021-11-11 2021-11-11 Office Eddie Bauer [id number] Mayra 10:45:00 11:00:00 Visit Ildefonso Ng 350.1.13.13 Se ybold Somogyi 1.2.7.2.686 [id number] 2021-10-26 2021-10-26 Office MIA Tucker [id number] Mayra 11:00:00 11:15:00 Visit [facility] [id number] Seybold 1.2.7.2.686 [id number] 2021-10-18 2021-10-18 Outpatient MAYRA JOY [id number] Mayra 00:00:00 00:00:00 JENSEN Seybol d 2021-09-26 2021-09-26 Outpatient YASMIN ENRIQUEZ [id number] Mayra 00:00:00 00:00:00 ROSSY HERNÁNDEZ Se ybold 2021-09-26 2021-09-26 Outpatient MAYRA BAUER [id number] Mayra 00:00:00 00:00:00 ILDEFONSO Seybol d 2021-09-17 2021-09-17 Outpatient MAYRA JOY [id number] Mayra 00:00:00 00:00:00 JENSEN Seybol d 2021-09-17 2021-09-17 Outpatient YASMIN ENRIQUEZ [id number] Mayra 00:00:00 00:00:00 EY, ROSSY Se ybold 2021-09-13 2021-09-13 Outpatient JOHN EDDIE ENRIQUEZ [id number] Mayra 14:00:00 14:00:00 Seybol d 2021-09-13 2021-09-13 Outpatient MAYRA JOY [id number] Mayra 00:00:00 00:00:00 JENSEN Seybol d 2021-09-10 2021-09-10 Outpatient MAYRA JOY [id number] Mayra 00:00:00 00:00:00 JENSEN Seybol d 2021-09-08 2021-09-08 Office Benita, MAIN 1.2.840.114 [id number] Mayra 11:45:00 12:00:00 Visit [facility] 350.1.13.13 Se ybold 1.2.7.2.686 [id number] 2021-09-08 2021-09-08 Outpatient MAYRA TUCKER [id number] Mayra 10:30:00 10:30:00 FREEMAN Seybol d 2021-09-08 2021-09-08 Outpatient MAYRA JOY [id number] Mayra 00:00:00 00:00:00 JENSEN Seybol d 2021-08-29 2021-08-29 Outpatient YASMIN ENRIQUEZ [id number] Mayra 00:00:00 00:00:00 EY, ROSSY Se ybold 2021-08-28 2021-08-28 Outpatient YASMIN ENRIQUEZ [id number] Mayra 00:00:00 00:00:00 EY, ROSSY Se ybold 2021-08-24 2021-08-24 Outpatient BENITAMAYRA Shipman [id number] Mayra 00:00:00 00:00:00 JENSEN Seybol d 2021-08-23 2021-08-23 Outpatient YASMIN ENRIQUEZ [id number] Mayra 00:00:00 00:00:00 ROSSY HERNÁNDEZ Se ybold 2021-08-19 2021-08-19 Outpatient MAYRA ENRIQUEZ [id number] Mayra 07:10:00 07:10:00 Seybol d 2021-08-19 2021-08-19 Outpatient MAYRA SHEETS [id number] Mayra 06:30:00 06:30:00 AHMED Seybol d 2021-08-18 2021-08-18 Outpatient MAYRA SHEETS [id number] Mayra 00:00:00 00:00:00 AHMED Seybol d 2021-08-18 2021-08-18 Outpatient SLOANMAYRA Toth [id number] Mayra 00:00:00 00:00:00 ADRYENE Seybol d 2021-08-17 2021-08-17 Outpatient MAYRA STEWARD [id number] Mayra 00:00:00 00:00:00 DEANDRE Seybol d 2021-08-05 2021-08-05 Outpatient RENEA SANDRINEEsperanza ENRIQUEZ [id number] Mayra 00:00:00 00:00:00 Seybol d 2021-07-29 2021-07-29 Outpatient MAYRA ENRIQUEZ [id number] Mayra 00:00:00 00:00:00 Seybol d 2021-07-28 2021-07-28 Office Eddie Bauer 1.2.840.114 [id number] Mayra 10:45:00 11:00:00 Visit Ildefonso Ng 350.1.13.13 Se ybold Ori 1.2.7.2.686 [id number] 2021-07-28 2021-07-28 Outpatient MAYRA JOY [id number] Mayra 00:00:00 00:00:00 JENSEN Seybol d 2021-07-27 2021-07-27 Outpatient MAYRA TUCKER [id number] Mayra 00:00:00 00:00:00 FREEMAN Seybol d 2021-07-19 2021-07-19 Outpatient ROSSHOMAR MAYRA ENRIQUEZ [id number] Mayra 00:00:00 00:00:00 ROSSY HERNÁNDEZ Se ybold 2021-07-14 2021-07-14 Outpatient YASMIN MAYRA ENRIQUEZ [id number] Mayra 00:00:00 00:00:00 EYROSSY Se ybold 2021-07-13 2021-07-13 Outpatient MAYRA ENRIQUEZ [id number] Mayra 11:00:00 11:00:00 Seybol d 2021-07-13 2021-07-13 Office MukulmonicaMIA [id number] Mayra 09:45:00 10:00:00 Visit [facility] [id number] Se ybold 1.2.7.2.686 [id number] 2021-07-13 2021-07-13 Outpatient MAYRA SHEETS [id number] Mayra 00:00:00 00:00:00 AHMED Seybol d 2021-07-13 2021-07-13 Outpatient MAYRA ENRIQUEZ [id number] Mayra 00:00:00 00:00:00 Seybol d 2021-07-05 2021-07-05 Outpatient MAYRA LITTLE [id number] Mayra 10:45:00 10:45:00 ELY Doeybo ld 2021-06-30 2021-06-30 Outpatient MAYRA CHERRY [id number] Mayra 00:00:00 00:00:00 GENEVA Seybo ld 2021-06-30 2021-06-30 Outpatient MAYRA CHERRY [id number] Mayra 00:00:00 00:00:00 GENEVA Doeybo ld 2021-06-28 2021-06-28 Outpatient EDDIE LOPEZ [id number] Mayra 13:30:00 13:30:00 Seybol d 2021-06-28 2021-06-28 Outpatient MAYRA JOY [id number] Mayra 00:00:00 00:00:00 JENSEN Seybol d 2021-06-24 2021-06-24 Outpatient BENITA MAYRA ENRIQUEZ [id number] Mayra 00:00:00 00:00:00 JENSEN Seybol d 2021-06-24 2021-06-24 Outpatient BENITA MAYRA ENRIQUEZ [id number] Mayra 00:00:00 00:00:00 JENSEN Seybol d 2021-06-23 2021-06-23 Outpatient INJ MAYRA ENRIQUEZ [id number] Mayra 10:30:00 10:30:00 PEARLAND Seybo ld 2021-06-23 2021-06-23 Outpatient BENITA MAYRA ENRIQUEZ [id number] Mayra 00:00:00 00:00:00 JENSEN Seybol d 2021-06-17 2021-06-17 Outpatient BENITA MAYRA ENRIQUEZ [id number] Mayra 00:00:00 00:00:00 JENSEN Seybol d 2021-06-11 2021-06-11 Outpatient YASMIN ENRIQUEZ [id number] Mayra 00:00:00 00:00:00 ROSSY HERNÁNDEZ Se ybold 2021-06-11 2021-06-11 Outpatient YASMIN ENRIQUEZ [id number] Mayra 00:00:00 00:00:00 ROSSY HERNÁNDEZ Se ybold 2021-06-10 2021-06-10 Office MIA Joy [id number] Mayra 13:45:00 14:00:00 Visit [facility] 350.1.13.13 Se ybold 1.2.7.2.686 [id number] 2021-06-10 2021-06-10 Outpatient MAYRA ENRIQUEZ [id number] Mayra 11:30:00 11:30:00 Seybol d 2021-06-09 2021-06-09 Office MIA Sheets [id number] Mayra 13:00:00 13:15:00 Visit [facility] 350.1.13.13 Se ybold [id number] 2021-06-09 2021-06-09 Outpatient KORTNEY MAYRA ENRIQUEZ [id number] Mayra 13:00:00 13:00:00 AHMED Seybol d 2021-06-02 2021-06-02 Outpatient BENITA MAYRA ENRIQUEZ [id number] Mayra 00:00:00 00:00:00 JENSEN Seybol d 2021-05-26 2021-05-26 Outpatient MAYRA ENRIQUEZ [id number] Mayra 13:45:00 13:45:00 Seybol d 2021-05-07 2021-05-07 Outpatient BENITA, MAYRA ENRIQUEZ [id number] Mayra 00:00:00 00:00:00 JENSEN Seybol d 2021-04-29 2021-04-29 Outpatient MAYRA ENRIQUEZ [id number] Mayra 10:45:00 10:45:00 Seybol d 2021-04-16 2021-04-16 Outpatient MAYRA ENRIQUEZ [id number] Mayra 14:30:00 14:30:00 Seybol d 2021-04-09 2021-04-09 Outpatient BENITA MAYRA ENRIQUEZ [id number] Mayra 00:00:00 00:00:00 JENSEN Seybol d 2021-04-01 2021-04-01 Outpatient [facility] MAYRA ENRIQUEZ [id number] Mayra 15:30:00 15:30:00 Seybol d 2021-04-01 2021-04-01 Office JONATHAN HowardSAMUEL [id number] Mayra 14:45:45 15:00:45 Visit Skyler 350.1.13.13 Se ybold 1.2.7.2.686 [id number] 2021-03-12 2021-03-12 Outpatient MAYRA JOY [id number] Mayra 00:00:00 00:00:00 JENSEN Seybol d 2021-03-10 2021-03-10 Outpatient KORTNEY MAYRA ENRIQUEZ [id number] Mayra 10:45:00 10:45:00 AHMED Seybol d 2021-03-04 2021-03-04 Outpatient MAYRA JOY [id number] Mayra 13:45:00 13:45:00 JENSEN Seybol d 2021-03-03 2021-03-03 Outpatient STAR MAYRA ENRIQUEZ [id number] Mayra 00:00:00 00:00:00 MD NORAH Seybol d 2021-02-12 2021-02-12 Outpatient MAYRA TOTH [id number] Mayra 00:00:00 00:00:00 FAYYAZ Seybol d 2021-02-12 2021-02-12 Outpatient MAYRA TOTH [id number] Mayra 00:00:00 00:00:00 FAYYAZ Seybol d 2021-02-05 2021-02-05 Outpatient MAYRA ENRQIUEZ [id number] Mayra 10:00:00 10:00:00 Seybol d 2021-01-25 2021-01-25 Outpatient LAB AMYRA ENRIQUEZ [id number] Mayra 15:15:00 15:15:00 Seybol d 2021-01-25 2021-01-25 Outpatient MAYRA MICHAEL [id number] Mayra 14:30:00 14:30:00 ROSSI Seybol d 2021-01-19 2021-01-19 Outpatient VANDANATYRA ENRIQUEZ [id number] Mayra 00:00:00 00:00:00 AMITA ROSSY louis 2021-01-15 2021-01-15 Outpatient MAYRA JOY [id number] Mayra 00:00:00 00:00:00 JENSEN Seybol d 2020-10-30 2020-11-07 [facility] Rustam Garcia [facility] [id number] 20:55:00 14:16:00 Encounter Bibi Santoyo [facility] 2020-11-04 2020-11-[address] [facility] [id number] [facility] 15:45:00 17:20:00 [facility] 2020-11-04 2020-11-[address] [facility] [id number] 15:45[facility]00 16:49[facility]00 [facility] 2020-10-30 Emergency ER [facility] Emergency [id number] [facility] 20:54:00 20:54:00 2020-10-30 2020-10-30 Travel [facility] [id number] [facility] 00:00:00 00:00:00 [facility] Results Test Description Test Time Test Comments Results Result Comments Source AFB culture + smear (non-sputum) 2020-12-24 15:38:00 Test Item Value Reference Range Interpretation Comme nts Result (test code = 6463-4) No acid-fast bacilli isolated in 42 day s AFB Smear (test code = 05175-8) No acid fast bacilli seen [facility]2020-12-24 15:38:00 Test Item Value Reference Range Interpretation Comments CULTURE (BEAKER) (test No acid-fast bacilli code = 1095) isolated in 42 days AFB SMEAR (BEAKER) No acid fast bacilli (test code = 994) seen Fungus culture + [id number] 00:34:00 Test Item Value Reference Range Interpretation Comments Result (test code = No fungus isolated in 6463-4) 28 days Fungus Smear (test No fungi seen code = 1406) [facility] [id number] 00:34:00 Test Item Value Reference Range Interpretation Comments CULTURE (BEAKER) (test No fungus isolated in code = 1095) 28 days FUNGUS SMEAR (BEAKER) No fungi seen (test code = 1406) Anaerobic [id number] 07:45:00 Test Item Value Reference Range Interpretation Comments Result (test code = No anaerobes isolated 6463-4) [facility] [id number] 07:45:00 Test Item Value Reference Range Interpretation Comments CULTURE (BEAKER) (test No anaerobes isolated code = 1095) POC-Glucose [id number] 11:29:00 Test Item Value Reference Range Interpretation Comments POC-Glucose Meter (test 102 mg/dL 70-110 : TE STED AT [facility] code = 1538) [address] [place], [address]: Regulatory Affairs Manager/Techni fan ID = [id number] for WHITLEY DEMPSEY Lab Interpretation (test Normal code = 88919-3) [facility] [id number] 11:29:00 Test Item Value Reference Range Interpretation Comments POC-GLUCOSE METER 102 mg/dL 70-110 : TESTED A T [facility] 6720 (BEAKER) (test code = [address] [place], 1538) [address]: Regulatory Affairs Manager/Techni fan ID = [id number] for WHITLEY LOZANO SARS-CoV2/RT-PCR (Asymptomatic ONLY)2020-11-07 11:03:00 Test Item Value Reference Range Interpretation Comments SARS-COV2/RT-PCR Negative Not Detected, (test code = Negative, See 24271-7) external report for linked test SARS-COV-2 [facility] MAGALI PERFORMING LAB (test code = 21322-0) MARCELA (test code = Negative result for this MARCELA) test determines that SARS-CoV-2 RNA was not present in the specimen above the Limit of Detection (LOD). However, Negative results do not preclude SARS-CoV-2 infection and should not be used as the sole basis for treatment or patient management decisions. Negative results must be combined with clinical observations, patient history, and epidemiological information. A false negative result may occur if a specimen is improperly collected, transported or handled. A false negative result should be considered if patient's recent exposures or clinical presentation indicate that COVID-19 (SARS-CoV-2) is likely and diagnostic tests for other causes of illness are negative. Re-testing should be considered in cases of suspected false negatives. The limit of detection for this assay is 800 copies/mL. This SARS CoV-2 test is a real-time RT-PCR test intended for the qualitative detection of nucleic acid from SARS-CoV-2 in a nasopharyngeal swab specimen collected from individuals suspected of COVID-19 by their healthcare provider. This test has not been Food and Drug Administration (FDA) cleared or approved. This is a modified version of an approved Emergency Use Authorization (EUA) and is in the process of review by the FDA. Once authorized by the FDA, the issued EUA will be effective until the declaration that circumstances exist justifying the authorization of the emergency use of in vitro diagnostic tests for detection and/or diagnosis of COVID-19 is terminated under Section 564(b)(2) of the Act or the EUA is revoked under Section 564(g) of the Act. Fact Sheet for Healthcare Providers:https://www.[employer]/sites/default/f candice/product/documents/F act_Sheet_HC_Providers_L wow_FGPJ-DpW-2.pdf Fact Sheet for Healthcare Patients:https://www.[employer]/sites/default/fi les/product/documents/Fa ct_Sheet_Patients_Lyra_S ARS-CoV-2.pdf Performing Laboratory:[facility] [place] [address] [facility] REF LABS)2020-11-07 11:03:00 Test Item Value Reference Range Interpretation Comments SARS-COV2/RT-PCR (test Negative Not Detected, Negative, code = 8547509) See external report for linked test SARS-COV-2 PERFORMING LAB [facility] MAGALI (test code = 9403760) Negative result for this test determines that SARS-CoV-2 RNA was not present in the specimen above the Limit of Detection (LOD). However, Negative results do not preclude SARS-CoV-2 infection and should not be used as the sole basis for treatment or patient management decisions. Negative results mustbe combined with clinical observations, patient history, and epidemiological information. A false negative result may occur if a specimen is improperly collected, transported or handled. A false negative result should be considered if patient's recent exposures or clinical presentation indicate that COVID-19 (SARS-CoV-2) is likely and diagnostic tests for other causes of illness are negative. Re-testing should be considered in cases of suspected false negatives.The limit of detection for this assay is 800 copies/mL.This SARS CoV-2 test is a real-time RT-PCR test intended for the qualitative detection of nucleic acid from SARS-CoV-2 in a nasopharyngeal swab specimen collected from individuals susp ected of COVID-19 by their healthcare provider.This test has not been Food and Drug Administration (FDA) cleared or approved. This is a modified version of an approved Emergency Use Authorization (EUA) and is in the process of review by the FDA. Once authorized by the FDA, the issued EUA will be effective until the declaration that circumstances exist justifying the authorization of the emergency use of in vitro diagnostic tests for detection and/or diagnosis of COVID-19 is terminated under Section 564(b)(2) of the Act or the EUA is revoked under Section 564(g) of the Act.Fact Sheet for Healthcare Providers:https://www.[employer] Solutions/sites/default/files/product/documents/Fact_Shee j_ES_Pugmtxdkc_Ykkh_IIIB-XtV-0.pdfFact Sheet for Healthcare Patients:[email or web address]://www.[employer]/sites/default/files/product/ documents/Mwgf_Orbft_Eifjtwkm_Prqo_LUZX-FaX-3.pdfPerforming Laboratory:[facility] [place] [address].[place], [place] [address]RSVRNENLGZ OBTAINED CULTURE + GRAM [id number] 10:18:00 Test Item Value Reference Range Interpretation Comments CULTURE (BEAKER) (test ESCHERICHIA COLI A 2 + Escherichia code = 1095) coli Amikacin (test code = S 1) Ampicillin + Sulbactam S (test code = 6) Aztreonam (test code = S 32) Cefepime (test code = S 51) Cefoxitin (test code = S 68) Ceftazidime (test code S = 27) Ceftriaxone (test code S = 52) Ertapenem (test code = S 38) Gentamicin (test code S = 18) Levofloxacin (test S code = 22) Meropenem (test code = S 34) Nitrofurantoin (test S code = 23) Piperacillin + S Tazobactam (test code = 29) Tetracycline (test S code = 2) Tobramycin (test code S = 25) Trimethoprim + S Sulfamethoxazole (test code = 47) GRAM STAIN RESULT 3+ WBCs (BEAKER) (test code = 1123) GRAM STAIN RESULT <1+ gram negative (BEAKER) (test code = rods 807668) POCT-GLUCOSE [id number] 07:18:00 Test Item Value Reference Range Interpretation Comments POC-GLUCOSE METER 88 mg/dL 70-110 : TESTED A T [facility] 6720 (BEAKER) (test code = [place], 1538) 18861: Regulatory Affairs Manager/Techni fan ID = [id number] for STERLING EN, WHITLEY POCT-GLUCOSE [id number] 21:15:00 Test Item Value Reference Range Interpretation Comments POC-GLUCOSE METER 90 mg/dL 70-110 : TESTED A T [facility] 6720 (BEAKER) (test code = [facility], 1538) 81078: Regulatory Affairs Manager/Techni fan ID = [id number] for SEMI EN, ISRRAEL POCT-GLUCOSE [id number] 16:43:00 Test Item Value Reference Range Interpretation Comments POC-GLUCOSE METER 93 mg/dL 70-110 : TESTED A T [facility] 6720 (BEAKER) (test code = [facility], 1538) 50924: Regulatory Affairs Manager/Techni fan ID = [id number] for STERLING EN, WHITLEY POCT-GLUCOSE [id number] 11:31:00 Test Item Value Reference Range Interpretation Comments POC-GLUCOSE METER 93 mg/dL 70-110 : TESTED A T [facility] 6720 (BEAKER) (test code = [facility], 153) 54669: Regulatory Affairs Manager/Techni fan ID = [id number] for STERLING EN, WHITLEY POCT-GLUCOSE [id number] 08:06:00 Test Item Value Reference Range Interpretation Comments POC-GLUCOSE METER 95 mg/dL 70-110 : TESTED A T [facility] 6720 (BEAKER) (test code = [facility], 153) 07103: Regulatory Affairs Manager/Techni fan ID = [id number] for STERLING EN, WHITLEY POCT-GLUCOSE [id number] 00:16:00 Test Item Value Reference Range Interpretation Comments POC-GLUCOSE METER 116 mg/dL 70-110 H : TESTED A T [facility] 6720 (BEAKER) (test code = [facility], 1538) 32178: Regulatory Affairs Manager/Techni fan ID = [id number] for Abi Flores POCT-GLUCOSE [id number] 19:10:00 Test Item Value Reference Range Interpretation Comments POC-GLUCOSE METER 84 mg/dL 70-110 : TESTED A T [facility] 6720 (BEAKER) (test code = [facility], 1538) 84621: Regulatory Affairs Manager/Techni fan ID = [id number] for HUMBERTO ALFRED SPIN/CONCENTRATION [id number] 14:30:00 Test Item Value Reference Range Interpretation Comments Concentration charged (test code = Done 2657) [facility] [id number] 14:30:00 Test Item Value Reference Range Interpretation Comments CONCENTRATION CHARGED (BEAKER) (test Done code = 7677) POCT-GLUCOSE [id number] 12:14:00 Test Item Value Reference Range Interpretation Comments POC-GLUCOSE METER 171 mg/dL 70-110 H : [facility] (BEAKER) (test code = WEND[place], 1538) 61562: Regulatory Affairs Manager/Techni fan ID = [id number] for HUMBERTO CRAIN Basic Metabolic [id number] 06:51:00 Test Item Value Reference Range Interpretation Comments Sodium (test code = 142 meq/L 854-678 1627-2) Potassium (test code = 4.5 meq/L 3.5-5.1 2823-3) Chloride (test code = 108 meq/L 98-107 H 2075-0) CO2 (test code = 25 meq/L 22-29 2028-9) BUN (test code = 17 mg/dL 7-21 3094-0) Creatinine (test code 0.58 mg/dL 0.57-1.25 = 2160-0) Glucose (test code = 118 mg/dL 70-105 H 2345-7) Calcium (test code = 9.5 mg/dL 8.4-10.2 65647-7) EGFR (test code = 126 mL/min/1.73 [place] [address]-5) NOT ACCURATE CREATININE CLEARANCE IN PREDICTING GLOMERULAR FILTRATION RATE . ESTIMATED GFR I S NOT APPLICABLE FOR DIALYSIS PATIENTS. MARCELA (test code = MARCELA) Regulatory Affairs Manager ID - HEIDY M Lab Interpretation Abnormal (test code = 46101-6) [facility] 06:51:00 Test Item Value Reference Range Interpretation Comments Magnesium (test code = 2.4 mg/dL 1.6-2.6 07925-8) MARCELA (test code = MARCELA) Regulatory Affairs Manager ID - HEIDY M Lab Interpretation (test Normal code = 62091-8) [facility]2021-[facility]29 06:51:00 Test Item Value Reference Range Interpretation Comments Phosphorus (test code = 2.8 mg/dL 2.3-4.7 2777-1) MARCELA (test code = MARCELA) Regulatory Affairs Manager ID Boni Toth Lab Interpretation (test Normal code = 53564-2) [facility] CenterBASIC METABOLIC [id number] 06:51:00 Test Item Value Reference Range Interpretation Comments SODIUM (BEAKER) 142 meq/L 136-145 (test code = 381) POTASSIUM (BEAKER) 4.5 meq/L 3.5-5.1 (test code = 379) CHLORIDE (BEAKER) 108 meq/L 98-107 H (test code = 382) CO2 (BEAKER) (test 25 meq/L 22-29 code = 355) BLOOD UREA NITROGEN 17 mg/dL 7-21 (BEAKER) (test code = 354) CREATININE (BEAKER) 0.58 mg/dL 0.57-1.25 (test code = 358) GLUCOSE RANDOM 118 mg/dL 70-105 H (BEAKER) (test code = 652) CALCIUM (BEAKER) 9.5 mg/dL 8.4-10.2 (test code = 697) EGFR (BEAKER) (test 126 mL/min/1.73 ESTIM ATED GFR IS code = 1092) sq m NOT ACCURATE CREATININE CLEARANCE IN PREDICTING GLOMERULAR FILTRATION RATE . ESTIMATED GFR I S NOT APPLICABLE FOR DIALYSIS PATIEN TS. Regulatory Affairs Manager ID - HEIDY [id number] 06:51:00 Test Item Value Reference Range Interpretation Comments MAGNESIUM (BEAKER) (test code = 2.4 mg/dL 1.6-2.6 627) Regulatory Affairs Manager ID - HEIDY [id number] 06:51:00 Test Item Value Reference Range Interpretation Comments PHOSPHORUS (BEAKER) (test code = 2.8 mg/dL 2.3-4.7 604) Regulatory Affairs Manager ID - HEIDY MPOCT-GLUCOSE [id number] 06:09:00 Test Item Value Reference Range Interpretation Comments POC-GLUCOSE METER 137 mg/dL 70-110 H : TESTED A T [facility] 6720 (BEAKER) (test code = [place], 1538) 25663: Regulatory Affairs Manager/Techni fan ID = [id number] for GR AHAM, TAYLA POCT-GLUCOSE [id number] 00:45:00 Test Item Value Reference Range Interpretation Comments POC-GLUCOSE METER 182 mg/dL 70-110 H : TESTED A T [facility] 6720 (BEAKER) (test code = [facility], 153) 64432: Regulatory Affairs Manager/Techni fan ID = [id number] for GR GRETTA, TAYLA POCT-GLUCOSE [id number] 18:31:00 Test Item Value Reference Range Interpretation Comments POC-GLUCOSE METER 140 mg/dL 70-110 H : TESTED A T [facility] 6720 (BEAKER) (test code = [facility], 1538) 78842: Regulatory Affairs Manager/Techni fan ID = [id number] for DA АЛЕКСАНДР WARDAIRA POCT-GLUCOSE [id number] 12:33:00 Test Item Value Reference Range Interpretation Comments POC-GLUCOSE METER 137 mg/dL 70-110 H : TESTED A T [facility] 6720 (BEAKER) (test code = [facility], 153) 82653: Regulatory Affairs Manager/Techni fan ID = [id number] for ADRIÁN ARAUZ HUMBERTO POCT-GLUCOSE [id number] 06:09:00 Test Item Value Reference Range Interpretation Comments POC-GLUCOSE METER 122 mg/dL 70-110 H : TESTED A T [facility] 6720 (BEAKER) (test code = [facility], 153) 41297: Regulatory Affairs Manager/Techni fan ID = [id number] for ARIS SILVAA BASIC METABOLIC [id number] 04:55:00 Test Item Value Reference Range Interpretation Comments SODIUM (BEAKER) 142 meq/L 136-145 (test code = 381) POTASSIUM (BEAKER) 3.6 meq/L 3.5-5.1 (test code = 379) CHLORIDE (BEAKER) 106 meq/L 98-107 (test code = 382) CO2 (BEAKER) (test 28 meq/L 22-29 code = 355) BLOOD UREA NITROGEN 12 mg/dL 7-21 (BEAKER) (test code = 354) CREATININE (BEAKER) 0.56 mg/dL 0.57-1.25 L (test code = 358) GLUCOSE RANDOM 101 mg/dL 70-105 (BEAKER) (test code = 652) CALCIUM (BEAKER) 9.1 mg/dL 8.4-10.2 (test code = 697) EGFR (BEAKER) (test 132 mL/min/1.73 ESTIM ATED GFR IS code = 1092) sq m NOT ACCURATE CREATININE CLEARANCE IN PREDICTING GLOMERULAR FILTRATION RATE . ESTIMATED GFR I S NOT APPLICABLE FOR DIALYSIS PATIEN TS. Regulatory Affairs Manager ID - CARA [id number] 04:55:00 Test Item Value Reference Range Interpretation Comments MAGNESIUM (BEAKER) (test code = 2.1 mg/dL 1.6-2.6 627) Regulatory Affairs Manager ID - CARA [id number] 04:55:00 Test Item Value Reference Range Interpretation Comments PHOSPHORUS (BEAKER) (test code = 2.1 mg/dL 2.3-4.7 L 604) Regulatory Affairs Manager ID - CARA ROSALES, [id number] 01:09:00 Test Item Value Reference Range Interpretation Comments Rh Factor (test code = 2589) NEG ABO Grouping (test code = 2588) A [facility] CenterPO[facility] [id number] 23:52:00 Test Item Value Reference Range Interpretation Comments POC-GLUCOSE METER 123 mg/dL 70-110 H : TESTED A T [facility] 6720 (BEAKER) (test code = [facility] [employer] [facility], 1538) 70110: Regulatory Affairs Manager/Techni fan ID = [id number] for PE CADENCE, JANAY Type and screen, [id number] 22:05:00 Test Item Value Reference Range Interpretation Comments ABO/RH AUTOMATED (BEAKER) (test A NEGATIVE code = 2260) Ab Scrn (test code = 890-4) NEGATIVE [facility]PO[facility] [id number] 18:14:00 Test Item Value Reference Range Interpretation Comments POC-GLUCOSE METER 187 mg/dL 70-110 H : TESTED A T [facility] 6720 (BEAKER) (test code = [facility] [employer] [facility], 1538) 70989: Regulatory Affairs Manager/Techni fan ID = [id number] for Ag reagan Mckenzie POCT-GLUCOSE [id number] 11:31:00 Test Item Value Reference Range Interpretation Comments POC-GLUCOSE METER 110 mg/dL 70-110 : TESTED A T [facility] 6720 (BEAKER) (test code = WENDY Howe [facility], 1538) 16791: Regulatory Affairs Manager/Techni fan ID = [id number] for Mckenzie Rubio POCT-GLUCOSE [id number] 05:59:00 Test Item Value Reference Range Interpretation Comments POC-GLUCOSE METER 116 mg/dL 70-110 H : [facility] (test code = [facility], 1538) 89938: Regulatory Affairs Manager/Techni fan ID = [id number] for ISRRAEL RUSSELL [id number] 05:51:00 Test Item Value Reference Range Interpretation Comments Triglycerides (test 167 mg/dL code = 2571-8) MARCELA (test code = MARCELA) TRIGLYCERIDE REFERENCE RANGELow Risk <150Borderline Risk 150-199High Risk 200-499Very High Risk >=500Operator ID - HEIDY Toth [facility] METABOLIC [id number] 05:51:00 Test Item Value Reference Range Interpretation Comments SODIUM (BEAKER) 139 meq/L 136-145 (test code = 381) POTASSIUM (BEAKER) 3.3 meq/L 3.5-5.1 L (test code = 379) CHLORIDE (BEAKER) 104 meq/L 98-107 (test code = 382) CO2 (BEAKER) (test 26 meq/L 22-29 code = 355) BLOOD UREA NITROGEN 7 mg/dL 7-21 (BEAKER) (test code = 354) CREATININE (BEAKER) 0.58 mg/dL 0.57-1.25 (test code = 358) GLUCOSE RANDOM 101 mg/dL 70-105 (BEAKER) (test code = 652) CALCIUM (BEAKER) 9.3 mg/dL 8.4-10.2 (test code = 697) EGFR (BEAKER) (test 126 mL/min/1.73 ESTIM ATED GFR IS code = 1092) sq m NOT ACCURATE CREATININE CLEARANCE IN PREDICTING GLOMERULAR FILTRATION RATE . ESTIMATED GFR I S NOT APPLICABLE FOR DIALYSIS PATIEN TS. Regulatory Affairs Manager ID - HEIDY [id number] 05:51:00 Test Item Value Reference Range Interpretation Comments MAGNESIUM (BEAKER) (test code = 1.7 mg/dL 1.6-2.6 627) Regulatory Affairs Manager ID - HEIDY [id number] 05:51:00 Test Item Value Reference Range Interpretation Comments PHOSPHORUS (BEAKER) (test code = 2.5 mg/dL 2.3-4.7 604) Regulatory Affairs Manager ID - HEIDY [id number] 05:51:00 Test Item Value Reference Range Interpretation Comments TRIGLYCERIDES (JDAKER) (test code = 167 mg/dL 540) TRIGLYCERIDE REFERENCE RANGELow Risk <150Borderline Risk 150-199High Risk 200-499Very High Risk>=500Operator ID - HEIDY MCBC with platelet count + automated [id number] 05:22:00 Test Item Value Reference Range Interpretation Comments WBC (test code = 6690-2) 4.3 See_Comment [A utomated message] The system [employer] generated this result transmitted ref erence range: 3.5 - 10 .5 K/L. The refe rence range was not u sed to interpret this result as normal/abnor mal. RBC (test code = 789-8) 3.21 See_Comment L [Au tomated message] The system [employer] generated this result transmitted ref erence range: 3.93 - 5 .22 M/L. The refe rence range was not u sed to interpret this result as normal/abnor mal. MCHC (test code = 786-4) 33.7 See_Comment L [A utomated message] The system [employer] generated this result transmitted ref erence range: 32.2 - 3 5.5 GM/DL. The refe rence range was not u sed to interpret this result as normal/abnor mal. Hematocrit (test code = 30.0 % 34.1-44.9 L 4544-3) MCV (test code = 787-2) 93.5 fL 79.4-94.8 MCH (test code = 785-6) 31.5 pg 25.6-32.2 RDW (test code = 788-0) 15.6 % 11.7-14.4 H Platelets (test code = 169 See_Comment [Aut omated message] 587-3) The system [employer] generated this result transmitted ref erence range: 150 - 45 0 K/CU MM. The referen ce range was not u sed to interpret this result as normal/abnor mal. MPV (test code = 10.2 fL 9.4-12.3 10470-8) nRBC (test code = 413) 0 See_Comment [Aut omated message] The system [employer] generated this result transmitted ref erence range: 0 - 0 /1 00 WBC. The refere nce range was not u sed to interpret this result as normal/abnor mal. % Neutros (test code = 49 % 429) % Lymphs (test code = 34 % 430) % Monos (test code = 15 % 431) % Eos (test code = 432) 1 % % Baso (test code = 437) 1 % # Neutros (test code = 2.13 See_Comment [Aut omated message] 670) The system [employer] generated this result transmitted ref erence range: 1.56 - 6 .13 K/L. The refe rence range was not u sed to interpret this result as normal/abnor mal. # Lymphs (test code = 1.47 See_Comment [Auto mated message] 414) The system [employer] generated this result transmitted ref erence range: 1.18 - 3 .74 K/L. The refe rence range was not u sed to interpret this result as normal/abnor mal. # Monos (test code = 0.63 See_Comment H [Autom ated message] 415) The system [employer] generated this result transmitted ref erence range: 0.24 - 0 .36 K/L. The refe rence range was not u sed to interpret this result as normal/abnor mal. # Eos (test code = 416) 0.03 See_Comment L [Au tomated message] The system [employer] generated this result transmitted ref erence range: 0.04 - 0 .36 K/L. The refe rence range was not u sed to interpret this result as normal/abnor mal. # Baso (test code = 417) 0.03 See_Comment [A utomated message] The system [employer] generated this result transmitted ref erence range: 0.01 - 0 .08 K/L. The refe rence range was not u sed to interpret this result as normal/abnor mal. Immature 1 % 0-1 Granulocytes-Relative (test code = 2801) Lab Interpretation (test Abnormal code = 63549-6) [facility] W/PLT COUNT & AUTO [id number] 05:22:00 Test Item Value Reference Range Interpretation Comments WHITE BLOOD CELL COUNT (BEAKER) 4.3 K/ L 3.5-10.5 (test code = 775) RED BLOOD CELL COUNT (BEAKER) 3.21 M/ L 3.93-5.22 L (test code = 761) HEMOGLOBIN (BEAKER) (test code = 10.1 GM/DL 11.2-15.7 L 410) HEMATOCRIT (BEAKER) (test code = 30.0 % 34.1-44.9 L 411) MEAN CORPUSCULAR VOLUME (BEAKER) 93.5 fL 79.4-94.8 (test code = 753) MEAN CORPUSCULAR HEMOGLOBIN 31.5 pg 25.6-32.2 (BEAKER) (test code = 751) MEAN CORPUSCULAR HEMOGLOBIN CONC 33.7 GM/DL 32.2-35.5 (BEAKER) (test code = 752) RED CELL DISTRIBUTION WIDTH 15.6 % 11.7-14.4 H (BEAKER) (test code = 412) PLATELET COUNT (BEAKER) (test 169 K/CU MM 150-450 code = 756) MEAN PLATELET VOLUME (BEAKER) 10.2 fL 9.4-12.3 (test code = 754) NUCLEATED RED BLOOD CELLS 0 /100 WBC 0-0 (BEAKER) (test code = 413) NEUTROPHILS RELATIVE PERCENT 49 % (BEAKER) (test code = 429) LYMPHOCYTES RELATIVE PERCENT 34 % (BEAKER) (test code = 430) MONOCYTES RELATIVE PERCENT 15 % (BEAKER) (test code = 431) EOSINOPHILS RELATIVE PERCENT 1 % (BEAKER) (test code = 432) BASOPHILS RELATIVE PERCENT 1 % (BEAKER) (test code = 437) NEUTROPHILS ABSOLUTE COUNT 2.13 K/ L 1.56-6.13 (BEAKER) (test code = 670) LYMPHOCYTES ABSOLUTE COUNT 1.47 K/ L 1.18-3.74 (BEAKER) (test code = 414) MONOCYTES ABSOLUTE COUNT (BEAKER) 0.63 K/ L 0.24-0.36 H (test code = 415) EOSINOPHILS ABSOLUTE COUNT 0.03 K/ L 0.04-0.36 L (BEAKER) (test code = 416) BASOPHILS ABSOLUTE COUNT (JDAKER) 0.03 K/ L 0.01-0.08 (test code = 417) IMMATURE GRANULOCYTES-RELATIVE 1 % 0-1 PERCENT (JDAKER) (test code = 2801) POCT-GLUCOSE [id number] 23:56:00 Test Item Value Reference Range Interpretation Comments POC-GLUCOSE METER 114 mg/dL 70-110 H : TESTED A T [facility] 6720 (DINESH) (test code = [place], 1538) 48000: Regulatory Affairs Manager/Techni fan ID = [id number] for ISRRAEL RUSSELL Clostridium difficile GDH [id number] 21:39:00 Test Item Value Reference Range Interpretation Comments C. Difficle Toxin Negative Negative (test code = 1369591643) C. Difficile GDH Negative Negative No indicati on of Antigen (test code = Clostri dium 9221534927) difficile infection and n o colonization. Discontinue enteric isolati on and therapy. MARCELA (test code = Testing performed MARCELA) by [employer] Rapid Cassette Assay. For GDH, published sensitivity of the assay is 98.7% compared to cytotoxicity testing. For Toxin AB, published sensitivity is 87.8% and specificity 99.4% compared to cytotoxicity testing.Verificati on of kit performance was done by the [facility] Microbiology Lab prior to clinical use. Lab Interpretation Normal (test code = 06417-7) [facility] DIFFICILE [facility] [id number] 21:39:00 Test Item Value Reference Range Interpretation Comments CDT TOXIN (test code Negative Negative = 3012297673) CDT GDH ANTIGEN (test Negative Negative No ind ication of code = 3939572248) Clostridi um difficile infection and n o colonization. Discontinue ent thee isolation and t herapy. Testing performed by [employer] Rapid Cassette Assay. For GDH, published sensitivity of the assay is 98.7% compared to cytotoxicity testing. For Toxin AB, published sensitivity is 87.8% and specificity 99.4% compared to cytotoxicity testing.Verification of kit performance was done by the [facility] Microbiology Lab prior to clinical use.POCT-GLUCOSE [id number] 16:00:00 Test Item Value Reference Range Interpretation Comments POC-GLUCOSE METER 114 mg/dL 70-110 H : TESTED A T [facility] 6720 (BEAKER) (test code = WENDY Howe [facility], 1538) 80064: Regulatory Affairs Manager/Techni fan ID = [id number] for DA OMAR WARDA POCT-GLUCOSE [id number] 11:35:00 Test Item Value Reference Range Interpretation Comments POC-GLUCOSE METER 107 mg/dL 70-110 : TESTED A T [facility] 6720 (BEAKER) (test code = WENDY Howe [facility], 1538) 01781: Regulatory Affairs Manager/Techni fan ID = [id number] for DA OMAR WARDA Blood Culture # 10:58:00 Test Item Value Reference Interpretation Comments Range Result (test code = From Aerobic And A Refe r to previous 6463-4) Anaerobic Bottles culture Same organism has ofEscheric hia coli been isolated from cultures(s) of the same body site and collection date. Repeat identification and susceptibility testing performed only after consultation with the clinical microbiology laboratory. Gram Stain Result From aerobic and (test code = 1123) anaerobic bottles: gram negative rods Lab Interpretation Abnormal (test code = 82338-2) [facility] [id number] 10:58:00 Test Item Value Reference Range Interpretation Comments CULTURE A From Aerobic An d (BEAKER) (test Anaerobic Bot tles Same code = 1095) organism has be en isolated from cultures(s) of the same body site and collection date . Repeat identifi cation and susceptibil ity testing perform ed only after consultat ion with the [facility] al microbiology laboratory.Refe r to previous cultur e ofEscherichia c roldan GRAM STAIN From aerobic and RESULT (BEAKER) anaerobic (test code = bottles: gram 1123) negative rods BLOOD [id number] 10:57:00 Test Item Value Reference Range Interpretation Comments CULTURE (BEAKER) (test ESCHERICHIA COLI A F rom Aerobic And code = 1095) Anaerobic Bottles Escherichia col i Amikacin (test code = S 1) Ampicillin + Sulbactam S (test code = 6) Aztreonam (test code = S 32) Cefepime (test code = S 51) Cefoxitin (test code = S 68) Ceftazidime (test code S = 27) Ceftriaxone (test code S = 52) Ertapenem (test code = S 38) Gentamicin (test code S = 18) Levofloxacin (test S code = 22) Meropenem (test code = S 34) Nitrofurantoin (test S code = 23) Piperacillin + S Tazobactam (test code = 29) Tetracycline (test S code = 2) Tobramycin (test code S = 25) Trimethoprim + S Sulfamethoxazole (test code = 47) GRAM STAIN RESULT From aerobic and (BEAKER) (test code = anaerobic 1123) bottles: gram negative rods Blood Culture Panel(ilustrum)2020-11-02 10:53:00 Test Item Value Reference Interpretation Comments Range LISTERIA MONOCYTOGENES Not detected Not detected (test code = 99162-2) STAPHYLOCOCCUS (test Not detected Not detected code = 83533-9) STAPHYLOCOCCUS AUREUS Not detected Not detected (test code = 72419-8) Streptococcus (test Not detected Not detected code = 77349-7) STREPTOCOCCUS Not detected Not detected AGALACTIAE (GROUP B) (test code = 30326-6) STREPTOCOCCUS Not detected Not detected PNEUMONIAE (test code = 20766-7) Streptococcus pyogenes Not detected Not detected (Group A) (test code = 81350-6) ACINETOBACTER BAUMANNII Not detected Not detected (test code = 68848-5) HAEMOPHILUS INFLUENZAE Not detected Not detected (test code = 96304-5) NEISSERIA MENINGITIDIS Not detected Not detected (test code = 34668-1) ENTEROBACTERIACEAE Detected Not detected A (test code = 77987-8) ENTEROBACTER CLOACOE Not detected Not detected COMPLEX (test code = 80310-4) KLEBSIELLA OXYTOCA Not detected Not detected (test code = 09845-3) KLEBSIELLA PNEUMONIAE Not detected Not detected (test code = 30816-5) PROTEUS (test code = Not detected Not detected 04494-9) SERRATIA MARCESCENS Not detected Not detected (test code = 02632-5) DANIEL ALBICANS (test Not detected Not detected code = 28847-9) DANIEL GLABRATA (test Not detected Not detected code = 80979-7) DANIEL KRUSEI (test Not detected Not detected code = 55296-5) DANIEL PARAPSILOSIS Not detected Not detected (test code = 24096-3) DANIEL TROPICALIS Not detected Not detected (test code = 03470-4) ESCHERICHIA COLI (test Detected Not detected A Esche richia code = 10244-2) coliKPC not detected (a carbapenamase gene)First-line therapy: MeropenemDe-esc ala te based on susceptibilitie s.T his test does n ot evaluate for ESBLReference Range: Not Detected METHICILLIN-RESISTANCE GENE (test code = 76188-0) VANCOMYCIN-RESISTANCE GENE (test code = 28036-8) CARBAPENEM-RESISTANCE Not detected Not detected Note: GENE (test code = Antimicrob ial 95416-5) resistance can occur via multi ple mechanisms. A N ot Detected result for the [employer] ay antimicrobial resistance gene assays does not indicate antimicrobial susceptibility. Subculturing is required for species identification and susceptibility testing of isolates.WARNIN G: A Not Detected result for the KPC gene does not indicate susceptibility to carbapenems. Gr am negative bacter ia can be resistan t to carbapenems by mechanisms othe r than carrying t he KPC gene. ENTEROCOCCUS (test code Not detected Not detected = 43973-1) PSEUDOMONAS AERUGINOSA Not detected Not detected (test code = 91546-2) MARCELA (test code = MARCELA) Other bacteria and resistance markers not targeted by this PCR panel cannot be excluded; therefore clinical correlation and follow up of serology, culture results, and other molecular studies is required. The results are not intended to be used as the sole means for clinical diagnosis or patient management decisions. This sample was tested at the [facility] using the Mediaspectrum Blood Culture ID Panel. It is FDA cleared and has been verified and approved by the [facility] for clinical use. This laboratory is CLIA-certified and [employer] (CAP)-accredited to perform high complexity testing. Lab Interpretation Abnormal (test code = 80316-6) [facility] [id number] 10:53:00 Test Item Value Reference Interpretation Comments Range LISTERIA MONOCYTOGENES Not detected Not detected (test code = 4157847) STAPHYLOCOCCUS (test Not detected Not detected code = 8489950) STAPHYLOCOCCUS AUREUS Not detected Not detected (test code = 8312708) STREPTOCOCCUS (test code Not detected Not detected = 9943358) STREPTOCOCCUS AGALACTIAE Not detected Not detected (GROUP B) (test code = 7847170) STREPTOCOCCUS PNEUMONIAE Not detected Not detected (test code = 4715511) STREPTOCOCCUS PYOGENES Not detected Not detected (GROUP A) (test code = 4315360) ACINETOBACTER BAUMANNII Not detected Not detected (test code = 1508903) HAEMOPHILUS INFLUENZAE Not detected Not detected (test code = 5553762) NEISSERIA MENINGITIDIS Not detected Not detected (test code = 5653788) ENTEROBACTERIACEAE (test Detected Not detected A code = 0733532) ENTEROBACTER CLOACOE Not detected Not detected COMPLEX (test code = 0635138) KLEBSIELLA OXYTOCA (test Not detected Not detected code = 9369234) KLEBSIELLA PNEUMONIAE Not detected Not detected (test code = 1650) PROTEUS (test code = Not detected Not detected 2864697) SERRATIA MARCESCENS Not detected Not detected (test code = 4737270) DANIEL ALBICANS (test Not detected Not detected code = 5821457) DANIEL GLABRATA (test Not detected Not detected code = 3024831) DANIEL KRUSEI (test Not detected Not detected code = 7879686) DANIEL PARAPSILOSIS Not detected Not detected (test code = 2364185) DANIEL TROPICALIS (test Not detected Not detected code = 7288404) ESCHERICHIA COLI (test Detected Not detected A Esche richia coliKPC code = 2301941) not detected (a carbapenamase gene)First-line therapy: MeropenemDe-esc alat e based on susceptibilitie s.Th is test does no t evaluate for ESBLReference Range: Not Dete cted METHICILLIN-RESISTANCE GENE (test code = 4852905) VANCOMYCIN-RESISTANCE GENE (test code = 4542632) CARBAPENEM-RESISTANCE Not detected Not detected Note: Antimicrobial GENE (test code = resistance can ) occur via multi ple mechanisms. A N ot Detected result for the [employer] antimicrobial resistance gene assays does not indicate antimicrobial susceptibility. Subculturing is required for species identification and susceptibility testing of isolates.TAMANNA G: A Not Detected re sult for the KPC gen e does not indica te susceptibility to carbapenems. Gr am negative bacter ia can be resistan t to carbapenems by mechanisms othe r than carrying t he KPC gene. ENTEROCOCCUS-BEAKER Not detected Not detected (test code = 3255201) PSEUDOMONAS Not detected Not detected AERUGINOSA-BEAKER (test code = 1470903) Other bacteria and resistance markers not targeted by this PCR panel cannot be excluded; therefore clinical correlation and follow up of serology, culture results, and other molecular studies is required. The results are not intended to be used as the sole means for clinical diagnosis or patient management decisions. This sample was tested at the [facility] using the KorrioArray Blood Culture ID Panel. It is FDA cleared and has been verified and approved by the [facility] for clinical use. This laboratory is CLIA-certified and College ofAmerican Pathologists (CAP)-accredited to perform high complexity testing.Manual [id number] 07:58:00 Test Item Value Reference Range Interpretation Comments % Neutros (test code = 67 % 2816) % Lymphs (test code = 25 % 2817) % Monos (test code = 8 % 2818) # Neutros (test code = 3.42 K/ul 1.56-6.13 2830) # Lymphs (test code = 1.28 K/ul 1.18-3.74 2831) # Monos (test code = 0.41 K/uL 0.24-0.36 H 2832) Total Counted (test 100 code = 1351) WBC Morphology (test Normal code = 487) Platelet Morphology Normal (test code = 486) Anisocytosis (test code 1+ few = 961) Artifact (test code = Present 3432) Platelet Conc (test Decreased code = 3438) MARCELA (test code = MARCELA) Regulatory Affairs Manager ID - Kayce Luu comments: Slide comments: Lab Interpretation Abnormal (test code = 74085-7) [facility] W/PLT COUNT & AUTO [id number] 07:58:00 Test Item Value Reference Range Interpretation Comments WHITE BLOOD CELL COUNT (BEAKER) 5.1 K/ L 3.5-10.5 (test code = 775) RED BLOOD CELL COUNT (BEAKER) 2.92 M/ L 3.93-5.22 L (test code = 761) HEMOGLOBIN (BEAKER) (test code = 9.1 GM/DL 11.2-15.7 L 410) HEMATOCRIT (BEAKER) (test code = 28.1 % 34.1-44.9 L 411) MEAN CORPUSCULAR VOLUME (BEAKER) 96.2 fL 79.4-94.8 H (test code = 753) MEAN CORPUSCULAR HEMOGLOBIN 31.2 pg 25.6-32.2 (BEAKER) (test code = 751) MEAN CORPUSCULAR HEMOGLOBIN CONC 32.4 GM/DL 32.2-35.5 (BEAKER) (test code = 752) RED CELL DISTRIBUTION WIDTH 15.9 % 11.7-14.4 H (BEAKER) (test code = 412) PLATELET COUNT (BEAKER) (test 154 K/CU MM 150-450 code = 756) MEAN PLATELET VOLUME (BEAKER) 10.0 fL 9.4-12.3 (test code = 754) NUCLEATED RED BLOOD CELLS 0 /100 WBC 0-0 (BEAKER) (test code = 413) (CELLAVISION MANUAL DIFF)2020-11-02 07:58:00 Test Item Value Reference Range Interpretation Comments NEUTROPHILS - REL 67 % (CELLAVISION)(BEAKER) (test code = 2816) LYMPHOCYTES - REL 25 % (CELLAVISION)(BEAKER) (test code = 2817) MONOCYTES - REL 8 % (CELLAVISION)(BEAKER) (test code = 2818) NEUTROPHILS - ABS 3.42 K/ul 1.56-6.13 (CELLAVISION)(BEAKER) (test code = 2830) LYMPHOCYTES - ABS 1.28 K/ul 1.18-3.74 (CELLAVISION)(BEAKER) (test code = 2831) MONOCYTES - ABS 0.41 K/uL 0.24-0.36 H (CELLAVISION)(BEAKER) (test code = 2832) TOTAL COUNTED (BEAKER) (test code = 100 1351) WBC MORPHOLOGY (BEAKER) (test code Normal = 487) PLT MORPHOLOGY (BEAKER) (test code Normal = 486) ANISOCYTOSIS (BEAKER) (test code = 1+ few 961) ARTIFACT (CELLAVISION)(BEAKER) Present (test code = 3432) PLATELET CONCENTRATION Decreased (CELLAVISION)(BEAKER) (test code = 3438) Regulatory Affairs Manager ID - Kayce Luu comments: Slide comments:POCT-GLUCOSE METER 2020-11-02 06:13:00 Test Item Value Reference Range Interpretation Comments POC-GLUCOSE METER 109 mg/dL 70-110 : TESTED A T [facility] 6720 (BEAKER) (test code = [place], 1538) [address]: Regulatory Affairs Manager/Techni fan ID = [id number] for JANAY SILVA BASIC METABOLIC [id number] 06:01:00 Test Item Value Reference Range Interpretation Comments SODIUM (BEAKER) 141 meq/L 136-145 (test code = 381) POTASSIUM (BEAKER) 3.3 meq/L 3.5-5.1 L (test code = 379) CHLORIDE (BEAKER) 108 meq/L 98-107 H (test code = 382) CO2 (BEAKER) (test 24 meq/L 22-29 code = 355) BLOOD UREA NITROGEN 9 mg/dL 7-21 (BEAKER) (test code = 354) CREATININE (BEAKER) 0.59 mg/dL 0.57-1.25 (test code = 358) GLUCOSE RANDOM 107 mg/dL 70-105 H (BEAKER) (test code = 652) CALCIUM (BEAKER) 8.4 mg/dL 8.4-10.2 (test code = 697) EGFR (BEAKER) (test 124 mL/min/1.73 ESTIM ATED GFR IS code = 1092) sq m NOT ACCURATE CREATININE CLEARANCE IN PREDICTING GLOMERULAR FILTRATION RATE . ESTIMATED GFR I S NOT APPLICABLE FOR DIALYSIS PATIEN TS. Regulatory Affairs Manager ID - HEIDY MPOCT-GLUCOSE [id number] 20:25:00 Test Item Value Reference Range Interpretation Comments POC-GLUCOSE METER 108 mg/dL 70-110 : [facility] ([facility] (test code = [place], 1538) [address]: Regulatory Affairs Manager/Techni fan ID = [id number] for GOLDEN BENITES RAD, CHEST, 1 VIEW, NON [id number] 12:43:00Reason for exam:->PICC placementShould this be performed at the bedside?->Yes [facility] 1955 Sex: FFINAL REPORT AP view of the chest dated 11/01/2020 COMPARISON: July 25, 2018 CLINICAL INFORMATION: PICC placement Comment: Since prior examination, there is interval placement of a right PICC line with the tip seen in the superior vena cava. No other changes are seenin the chest. Signed: Vishnu Lu MDReport Verified Date/Time: 11/01/2020 12:43:02 Reading Location: [facility] C013W Consult Reading Room Hepatic function [id number] 07:06:00 Test Item Value Reference Range Interpretation Comments Protein, Total (test 6.0 See_Comment Specime n slightly code = 2885-2) hemolyzed [Automated message] The system which generated this result transmit johnson reference range : 6.0 - 8.3 gm/dL . The reference range was not u sed to interpret th is result as normal/abnormal . Albumin (test code = 2.8 g/dL 3.5-5.0 L Specime n slightly 57194-3) hemolyzed Total Bilirubin (test 0.4 mg/dL 0.2-1.2 Specim en slightly code = 1975-2) hemolyzed Bilirubin, Direct 0.1 mg/dL 0.1-0.5 Specimen s lightly (test code = 1968-7) hemolyz ed Alkaline Phosphatase 106 U/L 40-150 (test code = 6768-6) AST (test code = 21 U/L 5-34 Specimen sl ightly 1920-8) hemolyzed ALT (test code = 11 U/L 6-55 Specimen sl ightly 1742-6) hemolyzed MARCELA (test code = MARCELA) Regulatory Affairs Manager ID - HEIDY Toth Lab Interpretation Abnormal (test code = 09007-1) [facility] [id number] 07:06:00 Test Item Value Reference Range Interpretation Comments SODIUM (BEAKER) 138 meq/L 136-145 (test code = 381) POTASSIUM (BEAKER) 4.3 meq/L 3.5-5.1 Specimen slightly (test code = 379) hemolyzed CHLORIDE (BEAKER) 109 meq/L 98-107 H (test code = 382) CO2 (BEAKER) (test 21 meq/L 22-29 L code = 355) BLOOD UREA NITROGEN 10 mg/dL 7-21 (BEAKER) (test code = 354) CREATININE (BEAKER) 0.65 mg/dL 0.57-1.25 Specimen slightly (test code = 358) hemolyzed GLUCOSE RANDOM 104 mg/dL 70-105 (BEAKER) (test code = 652) CALCIUM (BEAKER) 8.9 mg/dL 8.4-10.2 (test code = 697) EGFR (BEAKER) (test 111 mL/min/1.73 ESTIM ATED GFR IS code = 1092) sq m NOT ACCURATE CREATININE CLEARANCE IN PREDICTING GLOMERULAR FILTRATION RATE . ESTIMATED GFR I S NOT APPLICABLE FOR DIALYSIS PATIEN TS. Regulatory Affairs Manager ID - HEIDY EPATIC FUNCTION [id number] 07:06:00 Test Item Value Reference Range Interpretation Comments TOTAL PROTEIN (BEAKER) 6.0 gm/dL 6.0-8.3 Speci men slightly (test code = 770) hemolyzed ALBUMIN (BEAKER) (test 2.8 g/dL 3.5-5.0 L Speci men slightly code = 1145) hemolyzed BILIRUBIN TOTAL 0.4 mg/dL 0.2-1.2 Specimen sli ghtly (BEAKER) (test code = hemoly zed 377) BILIRUBIN DIRECT 0.1 mg/dL 0.1-0.5 Specimen sl ightly (BEAKER) (test code = hemoly zed 706) ALKALINE PHOSPHATASE 106 U/L 40-150 (BEAKER) (test code = 346) AST (SGOT) (BEAKER) 21 U/L 5-34 Specimen slightly (test code = 353) hemolyzed ALT (SGPT) (BEAKER) 11 U/L 6-55 Specimen slightly (test code = 347) hemolyzed Regulatory Affairs Manager ID - HEIDY [facility] W/PLT COUNT & AUTO [id number] 06:30:00 Test Item Value Reference Range Interpretation Comments WHITE BLOOD CELL COUNT (BEAKER) 6.7 K/ L 3.5-10.5 (test code = 775) RED BLOOD CELL COUNT (BEAKER) 3.08 M/ L 3.93-5.22 L (test code = 761) HEMOGLOBIN (BEAKER) (test code = 9.8 GM/DL 11.2-15.7 L 410) HEMATOCRIT (BEAKER) (test code = 30.5 % 34.1-44.9 L 411) MEAN CORPUSCULAR VOLUME (BEAKER) 99.0 fL 79.4-94.8 H (test code = 753) MEAN CORPUSCULAR HEMOGLOBIN 31.8 pg 25.6-32.2 (BEAKER) (test code = 751) MEAN CORPUSCULAR HEMOGLOBIN CONC 32.1 GM/DL 32.2-35.5 L (BEAKER) (test code = 752) RED CELL DISTRIBUTION WIDTH 15.8 % 11.7-14.4 H (BEAKER) (test code = 412) PLATELET COUNT (BEAKER) (test 157 K/CU MM 150-450 code = 756) MEAN PLATELET VOLUME (BEAKER) 10.7 fL 9.4-12.3 (test code = 754) NUCLEATED RED BLOOD CELLS 0 /100 WBC 0-0 (BEAKER) (test code = 413) NEUTROPHILS RELATIVE PERCENT 75 % (BEAKER) (test code = 429) LYMPHOCYTES RELATIVE PERCENT 15 % (BEAKER) (test code = 430) MONOCYTES RELATIVE PERCENT 9 % (BEAKER) (test code = 431) EOSINOPHILS RELATIVE PERCENT 0 % (BEAKER) (test code = 432) BASOPHILS RELATIVE PERCENT 1 % (BEAKER) (test code = 437) NEUTROPHILS ABSOLUTE COUNT 4.98 K/ L 1.56-6.13 (BEAKER) (test code = 670) LYMPHOCYTES ABSOLUTE COUNT 0.98 K/ L 1.18-3.74 L (BEAKER) (test code = 414) MONOCYTES ABSOLUTE COUNT (BEAKER) 0.61 K/ L 0.24-0.36 H (test code = 415) EOSINOPHILS ABSOLUTE COUNT 0.02 K/ L 0.04-0.36 L (BEAKER) (test code = 416) BASOPHILS ABSOLUTE COUNT (BEAKER) 0.03 K/ L 0.01-0.08 (test code = 417) IMMATURE GRANULOCYTES-RELATIVE 1 % 0-1 PERCENT (BEAKER) (test code = 2801) SARS-COV2/RT-PCR ([facility])2020-10-30 23:48:00 Test Item Value Reference Range Interpretation Comments SARS-COV2/RT-PCR Negative Not Detected, Performanc e of the Xpert (test code = Negative, See Xpress 5836734) external report SARS-CoV-2/F frank/RSV test for linked test has only bee n established in nasopharyngeal swab specimens. Use of the Xpert Xpress SARS-CoV-2/Flu/ RSV test with other spec imen types has not b een assessed and pe rformance characteristics are unknown. As wi th any molecular test, mutations withi n the targeted geneti c regions identified by t he Xpert Xpress SARS-CoV-2/Flu/ RSV test could affect pr lopez and/or probe bi nding resulting in fa ilure to detect the pres ence of virus or the vi juan manuel being detected less predictably.Neg ative results do not preclude SARS-CoV-2, Inf luenza A/B, or RSV inf ection and should not be used as the sole bas is for treatment or ot her patient managem ent decisions. Res ults from the Xpert Xpres s SARS-CoV-2/Flu/ RSV test should be corre lated with the clinic al history, epidem iological data, and other data available to th e clinician evalu ating the patient. Inval id test results may occ ur from improper specim en collection; con lure to follow the anushka mmended sample collecti on, handling, and s torage procedures; capri hnical error. False ne gative results may occ ur if virus is presen t at levels below th e analytical limi t of detection (LOD: 131 copies/mL). Vi ral nucleic acid ma y persist in vivo, indepe ndent of virus viability . Detection of an alyte target(s) does not imply that the corres ponding virus(es) are i nfectious or are the caus ative agents for clin ical symptoms. Rece nt patient exposur e to FluMist or oth er live attenuated infl uenza vaccines may ca use inaccurate posi tive results.This te st has been authorized by FDA under an EUA fo r use by authorized labo ratories. This test is o nly authorized for the duration of the declaration charlie t circumstances e xist justifying the authorization o f emergency use o f in vitro diagnosti c tests for detection a nd/or diagnosis of CO VID-19 under Section 5 64(b)(1) of the Federal Food, Drug and Cosmet ic Act, 21 U.S.C. 360bbb-3(b)(1), unless the authorizati on is terminated or r evoked sooner.Fact She et for Healthcare Prov iders: https://www.Graitec/ Documents/Xpert %20Xpress %48XAHE-ByH-6-F frank-RSV/30 2-4508%20Rev.%2 0B%20HCP% 20Fact%20Sheet. pdfFact Sheet for Healt hcare Patients: https://www.Transpond.avox/ Documents/Xpert %20Xpress %84HVES-NyW-8-F frank-RSV/30 2-4507%20Rev.%2 0B%20Pati ent%20Fact%20Sh eet.pdf SARS-COV-2 Favian Performed at:[facility] PERFORMING LAB [facility] dicmo (test code = Eydqdt1034 [facility] 2382744) [place], [place] [address]bc: [phone] CT, [id number] 23:32:00Unlisted Reason for Exam - Click Yes and Enter Reason Below->YesUnlisted Reason for Exam->RUQ abdominal abscessWill this procedure require oral contrast?->No [facility] 1955 Sex: FFINAL REPORT CLINICAL HISTORY: Unlisted reason for examination, right upper quadrant abdominal abscess FINDINGS: Multiple axial images of the abdomen and pelvis were performed after the uncomplicated administration of IV contrast. Oral contrast was not given. This exam was performed according to our departmental dose-optimization program, which includes automated exposure control, adjustment of the mA and/or kV according to patient size and/or use of the iterative reconstruction technique. Comparison:None. Lower chest: Linear atelectasis versus scarring in the leftlower lung. No pleural effusion or pneumothorax. Visualized cardiac contours normal. Liver: Hepatomegaly, measuring 18.7 cm in caudal dimension at the right midclavicular line. Gallbladder and biliary tree: The gallbladder is absent. There is central intrahepatic biliary ductal prominence. The common bile duct is dilated to 12 mm. No radiopaque choledocholithiasis. Spleen: No significant findings. Adrenal Glands: No significant findings. Kidneys and ureters: There is heterogeneous enhancement of theleft kidney. No perinephric fluid collection to suggest abscess. 1.9 cm cyst in the midpole right kidney. Stomach and Duodenum: Postsurgical changes of gastric bypass. There is a fluid and air-filled tract extending from the right upper quadrant subcutaneous soft tissues through the abdominal wall to the junction of the second and third portions of the duodenum. The subcutaneous portion of the fluid collection measures 3.5 x 2.3 . Immediately subjacent fluid collection in the anterior abdominal wallmeasures 2.2 x 1.7 cm. The caliber of the fistulous tract between the abdominal wall and duodenum measures 1.2 cm in diameter. A fingerlike projection of the collection also extends inferiorly from theduodenum, measuring 3.2 x 1.0 cm. Pancreas: No significant findings. Bowel: No bowel obstruction or pneumatosis intestinalis. Appendix: Nonvisualized. No right lower quadrant inflammatory changes. Bladder: No significant findings. Major vascular structures: No significant findings. Reproductive organs: Previous hysterectomy Other: No free air, fluid or adenopathy Skeleton: No acute bony abnormality. 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 Heterogeneous left renal parenchymal enhancement worrisome for pyelonephritis. Please correlate with urinalysis. No perinephric abscess. Hepatosplenomegaly. Biliary ductal prominence may relate to postcholecystectomy reservoir effect. Pleasecorrelate with LFTs. Signed: Alessandro Lopez MDReport Verified Date/Time: 10/30/2020 23:32:40 E lectronically signed by: ALESSANDRO LOPEZ M.D. on 10/30/2020 11:32 PMLactic acid, venous [id number] 22:32:00 Test Item Value Reference Range Interpretation Comments Lactate, Venous (test code = 1.30 mmol/L 0.50-2.20 2872) Lab Interpretation (test code = Normal 71359-6) [facility] CenterLACT[facility] ACID, [id number] 22:32:00 Test Item Value Reference Range Interpretation Comments LACTATE BLOOD VENOUS (2) (BEAKER) 1.30 mmol/L 0.50-2.20 (test code = 2872) Prothrombin time/[id number] 22:31:00 Test Item Value Reference Interpretation Comments Range Protime (test code = 11.7 See_Comment [Autom ated 5902-2) message] The system which generated this result transmitted reference range : 9.8 - 12.0 seconds. The reference range was not used to interpret this result as normal/abnormal . INR (test code = 1.04 See_Comment [Automated 6301-6) message] The system which generated this result transmitted reference range : <=5.90. The reference range was not used to interpret this result as normal/abnormal . MARCELA (test code = RECOMMENDED MARCELA) COUMADIN/WARFARIN INR THERAPY RANGESSTANDARD DOSE: 2.0 - 3.0 Includes: PROPHYLAXIS for venous thrombosis, systemic embolization; TREATMENT for venous thrombosis and/or pulmonary embolus.HIGH RISK: Target INR is 2.5-3.5 for patients with mechanical heart valves. Lab Interpretation Normal (test code = 30728-0) [facility]era[facility]TT[facility] 22:31:00 Test Item Value Reference Range Interpretation Comments PTT (test code = 24195-7) 32.2 See_Comment [ Automated message] The system [employer] generated this result transmitted ref erence range: 25.8 - 3 4.5 seconds. The re ference range was not u sed to interpret this result as normal/abnor mal. Lab Interpretation (test Normal code = 53382-7) [facility] CenterAPTT20[facility]-04-[facility] 22:31:00 Test Item Value Reference Range Interpretation Comments PARTIAL THROMBOPLASTIN TIME 32.2 seconds 25.8-34.5 (BEAKER) (test code = 760) PROTHROMBIN TIME/[id number] 22:31:00 Test Item Value Reference Range Interpretation Comments PROTIME (BEAKER) 11.7 seconds 9.8-12.0 (test code = 759) INR (BEAKER) (test 1.04 See_Comment [Automat ed message] code = 370) The system [employer] generated this result transmitted ref erence range: <=5.90. The reference range was not used to int erpret this result as normal/abnormal . RECOMMENDED COUMADIN/WARFARIN INR THERAPY RANGESSTANDARD DOSE: 2.0 - 3.0 Includes: PROPHYLAXIS forvenous thrombosis, systemic embolization; TREATMENT for venous thrombosis and/or pulmonary embolus.HIGH RISK: Target INR is 2.5-3.5 for patients with mechanical heart valves.Comprehensive metabolic [id number] 22:28:00 Test Item Value Reference Range Interpretation Comments Protein, Total (test 7.1 See_Comment [Autom ated code = 6845-2) message] The system which generated this result transmitted reference range : 6.0 - 8.5 gm/dL . The reference r anjum was not used to interpret this result as normal/abnormal . Albumin (test code = 3.7 g/dL 3.5-5.0 80653-7) Alkaline Phosphatase 111 U/L 30-115 (test code = 6768-6) Total Bilirubin (test 0.7 mg/dL 0.1-1.2 code = 1975-2) Sodium (test code = 134 meq/L 135-148 L 2951-2) Potassium (test code = 4.0 meq/L 3.6-5.5 2823-3) Chloride (test code = 101 meq/L 98-106 5-0) CO2 (test code = 23 meq/L 24-32 L 8-9) BUN (test code = 22 mg/dL 10-26 3094-0) Creatinine (test code = 0.67 mg/dL 0.50-1.20 2160-0) Glucose (test code = 136 mg/dL 70-110 H 2345-7) Calcium (test code = 9.7 mg/dL 8.5-10.5 94154-6) AST (test code = 23 U/L 5-40 1920-8) ALT (test code = 24 U/L 5-50 1742-6) EGFR (test code = 107 mL/min/1.73 [place] [address]-1) NOT ACCURATE CREATININE CLEARANCE IN PREDICTING GLOMERULAR FILTRATION RATE . ESTIMATED GFR I S NOT APPLICABLE FOR DIALYSIS PATIEN TS. Lab Interpretation Abnormal (test code = 52311-9) [facility] CenterCOMPREHENSIVE METABOLIC [id number] 22:28:00 Test Item Value Reference Range Interpretation Comments TOTAL PROTEIN 7.1 gm/dL 6.0-8.5 (BEAKER) (test code = 770) ALBUMIN (BEAKER) 3.7 g/dL 3.5-5.0 (test code = 1145) ALKALINE PHOSPHATASE 111 U/L 30-115 (BEAKER) (test code = 346) BILIRUBIN TOTAL 0.7 mg/dL 0.1-1.2 (BEAKER) (test code = 377) SODIUM (BEAKER) (test 134 meq/L 135-148 L code = 381) POTASSIUM (BEAKER) 4.0 meq/L 3.6-5.5 (test code = 379) CHLORIDE (BEAKER) 101 meq/L 98-106 (test code = 382) CO2 (BEAKER) (test 23 meq/L 24-32 L code = 355) BLOOD UREA NITROGEN 22 mg/dL 10-26 (BEAKER) (test code = 354) CREATININE (BEAKER) 0.67 mg/dL 0.50-1.20 (test code = 358) GLUCOSE RANDOM 136 mg/dL 70-110 H (BEAKER) (test code = 652) CALCIUM (BEAKER) 9.7 mg/dL 8.5-10.5 (test code = 697) AST (SGOT) (BEAKER) 23 U/L 5-40 (test code = 353) ALT (SGPT) (BEAKER) 24 U/L 5-50 (test code = 347) EGFR (BEAKER) (test 107 ESTIMATE D GFR IS code = 1092) mL/min/1.73 sq NOT ACCURA TE m CREATININE CLEARANCE IN PREDICTING GLOMERULAR FILTRATION RATE . ESTIMATED GFR I S NOT APPLICABLE FOR DIALYSIS PATIEN TS. CBC W/PLT COUNT & AUTO [id number] 22:22:00 Test Item Value Reference Range Interpretation Comments WHITE BLOOD CELL COUNT (BEAKER) 12.8 K/ L 4.0-10.0 H (test code = 775) RED BLOOD CELL COUNT (BEAKER) 3.47 M/ L 4.00-5.00 L (test code = 761) HEMOGLOBIN (BEAKER) (test code = 11.6 GM/DL 12.0-15.0 L 410) HEMATOCRIT (BEAKER) (test code = 33.8 % 36.0-45.0 L 411) MEAN CORPUSCULAR VOLUME (BEAKER) 97.3 fL 82.0-99.0 (test code = 753) MEAN CORPUSCULAR HEMOGLOBIN 33.5 pg 27.0-33.0 H (BEAKER) (test code = 751) MEAN CORPUSCULAR HEMOGLOBIN CONC 34.4 GM/DL 32.0-36.0 (BEAKER) (test code = 752) RED CELL DISTRIBUTION WIDTH 14.0 % 10.3-14.2 (BEAKER) (test code = 412) PLATELET COUNT (BEAKER) (test 191 K/CU MM 150-430 code = 756) MEAN PLATELET VOLUME (BEAKER) 7.6 fL 6.5-10.5 (test code = 754) NEUTROPHILS RELATIVE PERCENT 86 % (BEAKER) (test code = 429) LYMPHOCYTES RELATIVE PERCENT 7 % (BEAKER) (test code = 430) MONOCYTES RELATIVE PERCENT 5 % (BEAKER) (test code = 431) EOSINOPHILS RELATIVE PERCENT 1 % (BEAKER) (test code = 432) BASOPHILS RELATIVE PERCENT 1 % (BEAKER) (test code = 437) NEUTROPHILS ABSOLUTE COUNT 10.99 K/ L 1.80-8.00 H (BEAKER) (test code = 670) LYMPHOCYTES ABSOLUTE COUNT 0.91 K/ L 1.48-4.50 L (BEAKER) (test code = 414) MONOCYTES ABSOLUTE COUNT (BEAKER) 0.63 K/ L 0.00-1.30 (test code = 415) EOSINOPHILS ABSOLUTE COUNT 0.17 K/ L 0.00-0.50 (BEAKER) (test code = 416) BASOPHILS ABSOLUTE COUNT (BEAKER) 0.08 K/ L 0.00-0.20 (test code = 417) VITAMIN [id number] 11:15:00 Test Item Value Reference Range Interpretation Comments VITAMIN A (test 10.7 Vitamin A, S erumVitamin A 10.7 code = SARAH) Low ug/dL 22.0- 69.5 01Reference intervals for v itamin A determined from [facility] studies. Individuals wit h vitamin A less than 20 ug/dL areconsideredvi tamin A deficient and those with serum concentrations xopltsom80 ug/dL are considered severely deficient.This test was developed and its perform ance characteristics determined by [facility]. It has not been cleared or approvedby [facility] Food and Drug Administration [id number] 07:54:00 Test Item Value Reference Range Interpretation Comments ZINC (test Test not performed () TRACE MUSA MENT (EDTA) code = ZI) ug/dL TUBE WAS SENT; WHOLE BLOODWHOLE BLOO D ZINC (TC 509039) WAS DONE TO REPLACE WRON G TEST CODE WHICHIS FO R SERUM;ZINC,WHOL E BLOOD RESULT : 679 UG/DL REFERENCE RANGE 440-860 UG/DLSe rum specimen was re ceived improperly sepa rated. Serumshould be from cells within one hour ofcollection.No tified Ade Sacrament o at llzavio72/31/20 20 Detection Limit = 5 VITAMIN B1 (THIAMINE)2020-05-13 17:08:00 Test Item Value Reference Range Interpretation Comments VITAMIN B1 109.6 nmol/L 66.5-200.0 Performed At: B N (THIAMINE) (test [facility] code = VITB1) [address] [id number] ra Ricardo CROSS Ph:[phone] [id number] 05:52:00 Test Item Value Reference Range Interpretation Comments GLUBED (test code = GLUBED) 109 MG/DL 70-105 H [id number] 20:55:00 Test Item Value Reference Range Interpretation Comments GLUBED (test code = GLUBED) 113 MG/DL 70-105 H BASIC METABOLIC [id number] 18:15:00 Test Item Value Reference Range Interpretation [...] code 8.5 mg/dL 8.5-10.5 N = CA) [id number] 16:21:00 Test Item Value Reference Range Interpretation Comments GLUBED (test code = GLUBED) 101 MG/DL 70-105 N [id number] 11:30:00 Test Item Value Reference Range Interpretation Comments GLUBED (test code = GLUBED) 146 MG/DL 70-105 H CBC W/AUTO [id number] 08:33:00 Test Item Value Reference Range Interpretation [...] 9.9 fL 8.6-12.6 N = MPV) WBC [id number] 08:33:00 Test Item Value Reference Range Interpretation [...] MORPHOLOGY (test code = NORMAL NORMAL PLTMORPH) [id number] 08:10:00 Test Item Value Reference Range Interpretation Comments MAGNESIUM (test code = MAG) 1.9 mg/dl 1.8-2.5 N BASIC METABOLIC [id number] 08:09:00 Test Item Value Reference Range Interpretation Comments SODIUM (test code 138 mmol/L 135-145 N = NA) POTASSIUM (test 2.5 mmol/L 3.6-5.0 LL Critical Sindi ue code = K) reported toFirs t Name:[facility] Name:EUBANKRESU LTS READ BACK AND VERIFIEDby N.LAB.NB1, on 05/08/20, [...] mg/dL 8.5-10.5 N = CA) CBC W/AUTO [id number] 07:55:00 Test Item Value Reference Range Interpretation [...] 9.9 fL 8.6-12.6 N = MPV) WBC [id number] 07:55:00 Test Item Value Reference Range Interpretation Comments TOTAL CELLS COUNTED (test code = TCC) #CELLS RBC MORPHOLOGY COMMENT (test code = NORMAL MOC) PLATELET MORPHOLOGY (test code = NORMAL PLTMORPH) CBC W/AUTO [id number] 07:55:00 Test Item Value Reference Range Interpretation [...] 9.9 fL 8.6-12.6 N = MPV) WBC [id number] 07:55:00 Test Item Value Reference Range Interpretation Comments TOTAL CELLS COUNTED (test code = TCC) #CELLS RBC MORPHOLOGY COMMENT (test code = NORMAL MOC) PLATELET MORPHOLOGY (test code = NORMAL PLTMORPH) CBC W/AUTO [id number] 07:52:00 Test Item Value Reference Range Interpretation [...] (test code = EO#) x10 3/uL 0.0-0.5 [id number] 05:44:00 Test Item Value Reference Range Interpretation Comments GLUBED (test code = GLUBED) 110 MG/DL 70-105 H VITAMIN D [id number] 22:25:00 Test Item Value Reference Range Interpretation Comments VITAMIN D 25-HYDROXY 41 ng/ml 30-100 N Interpr etive Data :Vit D (test code = VITD25) 25 Hydr oxy Vit D Status Vit OH Vit D Conc Range(ng/m L) Deficient < 20 Insufficient 20 - < 3 0 Sufficient 30 - 10 0 Upper Safety Limit > 100 [id number] 20:49:00 Test Item Value Reference Range Interpretation Comments GLUBED (test code = GLUBED) 149 MG/DL 70-105 H [id number] 16:58:00 Test Item Value Reference Range Interpretation Comments GLUBED (test code = GLUBED) 118 MG/DL 70-105 H THYROID REFLEX TO [id number] 12:37:00 Test Item Value Reference Range Interpretation Comments THYROID REFLEX TO FT4 (test code 1.180 uIU/ml 0.450-5.330 N = TSHREFLEX) [id number] 11:24:00 Test Item Value Reference Range Interpretation Comments GLUBED (test code = GLUBED) 120 MG/DL 70-105 H FOLIC [id number] 11:12:00 Test Item Value Reference Range Interpretation Comments FOLIC ACID (test code = FOL) 14.29 ng/ml 6.59-20.0 N [id number] 11:06:00 Test Item Value Reference Range Interpretation Comments FERRITIN (test code = SHANTELLE) 247 ng/mL 11-307 N - XR SMALL [id number] 10:49:00 [facility] : 1955 Sex: FPatient Name: YULISSA IRWIN Unit No: [id number] EXAMS: CPT: [id number] XR SMALL BOWEL 50304 SMALL BOWEL SERIES: Comparison: CT abdomen and [...] Air Kerma (mGy): Trscr Dt/Tm: 05/07/2020 (1049) by:[email or web address] Orig Print D/T: S: 05/07/2020 (1052) BATCH NO: N/A Name: YULISSA IRWIN [facility] Phys: [place] - Desmond Vazquez MD [address] : 1955 Age: 64 Sex: F [place], [place] [address] Loc: N.6032 1 Exam Date: 05/07/2020 Status: ADM IN PH: FAX: PAGE 1 Signed ReportPREALBUMIN 2020-05-07 07:47:00 Test Item Value Reference Range Interpretation Comments PREALBUMIN (test code = PREALB) 6.4 mg/dl 18-38 L [id number] 05:17:00 Test Item Value Reference Range Interpretation Comments GLUBED (test code = GLUBED) 136 MG/DL 70-105 H [id number] 20:01:00 Test Item Value Reference Range Interpretation Comments GLUBED (test code = GLUBED) 121 MG/DL 70-105 H - MRI BRAIN W/O [id number] 10:34:00 [facility] : 1955 Sex: FPatient Name: YULISSA IRWIN Unit No: [id number] EXAMS: CPT: [id number] MRI BRAIN W/O CONTRAST 04079 PROCEDURE: MRI BRAIN WITHOUT INTRAVENOUS GADOLINIUM COMPARISON: [...] Lawson MD; Undefined Provider Technologist: Partha Foster Trscr Dt/Tm: 05/06/2020 (1034) by:ElvinAJM BATCH NO: N/A Name: ALIDAYULISSA Esperanza [facility] Phys: Jay Galindo MD [address] [facility] : 1955 Age: 64 Sex: F [place] [address] Loc: N.6032 1 Exam Date: 05/06/2020 Status: ADM IN PH: FAX: PAGE 1 Signed ReportBASI METABOLIC PANEL 2020-05-06 05:04:00 Test Item Value [...] code 8.4 mg/dL 8.5-10.5 L = CA) [id number] 05:04:00 Test Item Value Reference Range Interpretation Comments MAGNESIUM (test code = MAG) 2.0 mg/dl 1.8-2.5 N VITAMIN [id number] 05:04:00 Test Item Value Reference Range Interpretation Comments VITAMIN B12 (test code = VITB12) 1231 pg/ml 180-914 H BASIC METABOLIC [id number] 04:44:00 Test Item Value Reference Range Interpretation [...] code 8.4 mg/dL 8.5-10.5 L = CA) [id number] 04:44:00 Test Item Value Reference Range Interpretation Comments MAGNESIUM (test code = MAG) 2.0 mg/dl 1.8-2.5 N VITAMIN [id number] 04:44:00 Test Item Value Reference Range Interpretation Comments VITAMIN B12 (test code = VITB12) pg/ml 180-914 CBC W/AUTO [id number] 04:19:00 Test Item Value Reference Range Interpretation [...] 0.0-0.1 N UA RFLX MICR CULT IF [id number] 18:27:00 Test Item Value Reference Range Interpretation [...] culture: Suprapubic PainSpecimen Description: CATHETERIZED (STRAIGHT)COMPREHENSIVE METABOLIC [id number] 15:53:00 Test Item Value Reference Range Interpretation [...] PHOSPHATASE (test code = ALKP) COMPREHENSIVE METABOLIC [id number] 15:53:00 Test Item Value Reference Range Interpretation [...] (test code = ALKP) - XR ABDOMEN [id number] 15:21:00 [facility] : 1955 Sex: FPatient Name: YULISSA IRWIN Unit No: [id number] EXAMS: CPT: [id number] XR ABDOMEN 1V 49954 History: constipation COMPARISON STUDY: 04/02/2020 Abdomen 1 [...] bowel dilatation is present. ElectronicallySigned by Anderson Silverio MD on 05/05/2020 at 1521 Reported and signed by: Anderson Silverio MD CC: Rhett Fry MD; Undefined Provider Technologist: MAYRA Ochoa Time: DAP (Gy m2): Air Kerma (mGy): Trscr Dt/Tm: 05/05/2020 (1521) by:[email or web address] Orig Print D/T: S: 05/05/2020 (1524) BATCH NO: N/A Name: YULISSA IRWIN [facility] Phys: Rhett Altamirano [address] : 1955 Age: 64 Sex: F [place], [place] [address] Loc: N.6032 1 Exam Date: 05/05/2020 Status: ADM IN PH: FAX: PAGE 1 Signed Report- CT HEAD/BRAIN W/O [id number] 13:49:00[facility] : 1955 Sex: FPatient Name: YULISSA IRWIN Unit No: [id number] EXAMS: CPT: [id number] CT HEAD/BRAIN W/O CONT 55358 CT HEAD WITHOUT CONTRAST TECHNIQUE: Contiguous noncontrast [...] (1349) by:[email or web address] Orig Print D/T: S: 05/05/2020 (0873) BATCH NO: N/A Name: YULISSA IRWIN [facility]: Rhett Altam[address]ano [address] 1955 Age: 64 Sex: F [place], [place] [address] Loc:N.6032 1 Exam Date: 05/05/2020 Status: ADM IN PH: FAX: PAGE 1 Signed [id number] - GLYCOSYLATED [id number] 07:34:00 Test Item Value Reference Range Interpretation [...] of red blood ce lls CBC W/AUTO [id number] 06:42:00 Test Item Value Reference Range Interpretation [...] 10.8 fL 8.6-12.6 N = MPV) WBC [id number] 06:42:00 Test Item Value Reference Range Interpretation [...] MORPHOLOGY (test code = NORMAL NORMAL PLTMORPH) [id number] 05:31:00 Test Item Value Reference Range Interpretation Comments GLUBED (test code = GLUBED) 114 MG/DL 70-105 H CBC W/AUTO [id number] 05:00:00 Test Item Value Reference Range Interpretation [...] 10.8 fL 8.6-12.6 N = MPV) WBC [id number] 05:00:00 Test Item Value Reference Range Interpretation Comments TOTAL CELLS COUNTED (test code = TCC) #CELLS RBC MORPHOLOGY COMMENT (test code = NORMAL MOC) PLATELET MORPHOLOGY (test code = NORMAL PLTMORPH) CBC W/AUTO [id number] 05:00:00 Test Item Value Reference Range Interpretation [...] 10.8 fL 8.6-12.6 N = MPV) WBC [id number] 05:00:00 Test Item Value Reference Range Interpretation Comments TOTAL CELLS COUNTED (test code = TCC) #CELLS RBC MORPHOLOGY COMMENT (test code = NORMAL MOC) PLATELET MORPHOLOGY (test code = NORMAL PLTMORPH) [id number] 23:32:00 Test Item Value Reference Range Interpretation Comments GLUBED (test code = GLUBED) 115 MG/DL 70-105 H - XR CHEST 2 [id number] 14:08:00 [facility] : 1955 Sex: FPatient Name: YULISSA IRWIN Unit No: [id number] EXAMS: CPT: [id number] XR CHEST 2 V 25090 COMPARISON: none HISTORY: Shortness of breath C [...] (1411) BATCH NO: N/A Name: YULISSA IRWIN [facility] Phys: Rhett Ocasio [address] [facility] : 1955 Age: 64 Sex: F [place], [place] [address] Loc: N.6032 1 Exam Date: 05/04/2020 Status: ADM IN PH: FAX: PAGE 1 Signed Report- MRI MRCP 2020-05-04 12:39:00 [facility] : 1955 Sex: FPatient Name: YULISSA IRWIN Unit No: [id number] EXAMS: CPT: [id number] MRI MRCP 94571 MRCP/MRI ABDOMEN Clinical history:pancreatits sp aspen Technique: [...] Rhett Fry MD; Undefined Provider Technologist: Bela Skelton Dt/Tm: 05/04/2020 (1238) by:[email or web address] Orig Print D/T: S: 05/04/2020 (8568) BATCH NO: N/A Name: YULISSA IRWIN [facility] Phys: LEESE. - Desmond Vazquez MD [address] : 1955 Age: 64 Sex: F [place], [place] [address] Loc: N.6032 1 Exam Date: 05/04/2020 Status: ADM IN PH: FAX: PAGE 1 Signed ReportCBC W/AUTO [id number] 09:51:00 Test Item Value Reference Range Interpretation [...] 10.6 fL 8.6-12.6 N = MPV) WBC [id number] 09:51:00 Test Item Value Reference Range Interpretation [...] SEEN NORMAL code = PLTMORPH) BASIC METABOLIC [id number] 08:08:00 Test Item Value Reference Range Interpretation [...] mg/dL 8.5-10.5 L = CA) LIVER FUNCTION [id number] 08:08:00 Test Item Value Reference Range Interpretation [...] code = 87 U/L 42-121 N ALKP) [id number] 08:08:00 Test Item Value Reference Range Interpretation Comments LIPASE (test code = LIP) 28 IU/L 22-51 N [id number] 08:08:00 Test Item Value Reference Range Interpretation Comments MAGNESIUM (test code = MAG) 2.1 mg/dl 1.8-2.5 N CBC W/AUTO [id number] 07:42:00 Test Item Value Reference Range Interpretation [...] 10.6 fL 8.6-12.6 N = MPV) WBC [id number] 07:42:00 Test Item Value Reference Range Interpretation Comments TOTAL CELLS COUNTED (test code = TCC) #CELLS RBC MORPHOLOGY COMMENT (test code = NORMAL MOC) PLATELET MORPHOLOGY (test code = NORMAL PLTMORPH) CBC W/AUTO [id number] 07:42:00 Test Item Value Reference Range Interpretation [...] 10.6 fL 8.6-12.6 N = MPV) WBC [id number] 07:42:00 Test Item Value Reference Range Interpretation Comments TOTAL CELLS COUNTED (test code = TCC) #CELLS RBC MORPHOLOGY COMMENT (test code = NORMAL MOC) PLATELET MORPHOLOGY (test code = NORMAL PLTMORPH) CBC W/AUTO [id number] 07:39:00 Test Item Value Reference Range Interpretation [...] = EO#) x10 3/uL 0.0-0.5 HIGH SENSITIVITY [id number] 16:25:00 Test Item Value Reference Range Interpretation Comments HIGH SENSITIVITY CRP (test code 30.530 mg/dl 0.000-0.747 H = CRPHS) BASIC METABOLIC [id number] 05:58:00 Test Item Value Reference Range Interpretation [...] code 9.0 mg/dL 8.5-10.5 N = CA) [id number] 05:58:00 Test Item Value Reference Range Interpretation Comments LIPASE (test code = LIP) 137 IU/L 22-51 H [id number] 05:58:00 Test Item Value Reference Range Interpretation Comments PHOSPHOROUS (test code = PHOS) 2.1 mg/dl 2.5-4.6 L [id number] 05:58:00 Test Item Value Reference Range Interpretation Comments MAGNESIUM (test code = MAG) 1.7 mg/dl 1.8-2.5 L CBC W/AUTO [id number] 05:40:00 Test Item Value Reference Range Interpretation [...] x10 3/uL 0.0-0.1 N Coronavirus 2019 nCoV [id number] 17:34:00 Test Item Value Reference Range Interpretation Comments Coronavirus 2018 Negative Negative This test h as been nCoV Bedside (test authorize d by FDA under code = [id number]) an EUA for use byauthorized laboratories. T his test has been author ized only for the detecti on ofnucleic acid from SARS-CoV-2, not for any other viruses orpathogens. Th is test is only authorized for the duration of thedeclaration that circumstances e xist justifying theauthorizatio n of emergency use o f in vitro diagnostic test sfor the detection and/o r diagnosis of CO VID-19 under Zvizqjg93 4(b)(1) of the Act, 21 U.S .C [...] and/o r diagnosis of CO VID-19 under Rnumeze15 4(b)(1) of the Act, 21 U.[place] .C 360bbb-3(b)(1), unless theauthorizatio n is terminated or r evoked sooner. - CT ABD PELVIS [id number] 16:09:00 [facility] : 1955 Sex: FPatient Name: YULISSA IRWIN Unit No: [id number] EXAMS: CPT: [id number] CT ABD PELVIS W/CONT 00881 EXAM: CT ABDOMEN AND PELVIS WITH CONTRAST [...] with ACR practice guidelines and adherence to shot fireman recommendations. FINDINGS: Lower thorax: Subsegmental atelectasis in [...] diverticulosis without evidence of Name: YULISSA IRWIN [facility] Phys: - Street,Elissaandrew Cabrera [address] : 1955 Age: 64 Sex: [place] [address] Loc: N.ERS Exam Date: 05/02/2020 Status: PRE ER PH: FAX: PAGE 1 Signed Report (CONTINUED) Patient Name: YULISSA IRWIN Unit No: [id number] EXAMS: CPT: [id number] CT ABD PELVIS W/CONT 48105 <Continued> acute diverticulitis. No obstruction or pneumatosis. [...] and signed by: YUDELKA VALENTE MD CC: [facility] [address] MD Technologist: Joselito Hanson CTDI: 18.7 DLP: 983.15 Trscr Dt/Tm: 05/02/2020 (1962) by:[email or web address] Orig Print D/T: S: 05/02/2020 (1612) BATCH NO: N/A Name: YULISSA IRWIN [facility] ED Phys: TRANH.01 - [address],Elissa Jerri Cabrera [address] : 1955 Age: 64 Sex: F [place] [address] Loc: N.ERS Exam Date: 05/02/2020 Status: PRE ER PH: FAX: PAGE 2 Signed ReportBASIC METABOLIC [id number] 15:15:00 Test Item Value Reference Range Interpretation [...] mg/dL 8.5-10.5 N = CA) LIVER FUNCTION [id number] 15:15:00 Test Item Value Reference Range Interpretation [...] code = 100 U/L 42-121 N ALKP) [id number] 15:15:00 Test Item Value Reference Range Interpretation Comments LIPASE (test code = LIP) 381 IU/L 22-51 H BASIC METABOLIC [id number] 15:12:00 Test Item Value Reference Range Interpretation [...] mg/dL 8.5-10.5 N = CA) LIVER FUNCTION [id number] 15:12:00 Test Item Value Reference Range Interpretation [...] PHOSPHATASE (test code = U/L 42-121 ALKP) [id number] 15:12:00 Test Item Value Reference Range Interpretation Comments LIPASE (test code = LIP) IU/L 22-51 BASIC METABOLIC [id number] 15:09:00 Test Item Value Reference Range Interpretation [...] mg/dL 8.5-10.5 N = CA) LIVER FUNCTION [id number] 15:09:00 Test Item Value Reference Range Interpretation Comments TOTAL PROTEIN (test code = PROT) g/dL 6.7-8.2 ALBUMIN (test code = ALB) g/dL 3.2-5.5 BILIRUBIN TOTAL (test code = BILT) mg/dL 0.2-1.3 BILIRUBIN DIRECT (test code = BILD) mg/dL 0.00-0.20 SGOT/AST (test code = AST) U/L 10-42 SGPT/ALT (test code = ALT) U/L 10-60 ALKALINE PHOSPHATASE (test code = U/L 42-121 ALKP) [id number] 15:09:00 Test Item Value Reference Range Interpretation Comments LIPASE (test code = LIP) IU/L 22-51 LACTIC [id number] 15:04:00 Test Item Value Reference Range Interpretation Comments LACTIC ACID (test code = LACT) 1.5 mmol/L 0.5-2.0 N CBC W/AUTO [id number] 14:49:00 Test Item Value Reference Range Interpretation [...] 0.0-0.1 N UA RFLX MICR CULT IF [id number] 14:49:00 Test Item Value Reference Range Interpretation [...] culture: Suprapubic PainSpecimen Description: CLEAN CATCHCBC W/AUTO [id number] 14:42:00 Test Item Value Reference Range Interpretation [...] code = EO#) x10 3/uL 0.0-0.5 URINE [id number] 13:51:00 Test Item Value Reference Range Interpretation Comments CULTURE (BEAKER) (test A 30-39 ,000 col/mL Daniel code = 1095) albicans >100,000 col/mL skin floraURINALYSIS W/ [id number] 18:13:00 Test Item Value Reference Range Interpretation [...] 1663) SOURCE(BEAKER) (test code = 2795) RAPID [id number] 17:57:00 Test Item Value Reference Range Interpretation Comments RAPID MYOGLOBIN (BEAKER) (test code 34 ng/mL <107 = 2237) RAPID TROPONIN [id number] 17:57:00 Test Item Value Reference Range Interpretation Comments RAPID TROPONIN I (BEAKER) (test code < ng/mL <0.05 = 1483) B-TYPE NATRIURETIC FACTOR (BNP)2018-07-25 17:57:00 Test Item Value Reference Range Interpretation Comments B-TYPE NATRIURETIC PEPTIDE (BEAKER) 22 pg/mL 0-100 (test code = 700) RAPID [id number] 17:56:00 Test Item Value Reference Range Interpretation Comments RAPID CKMB (BEAKER) (test code = < ng/mL 0.0-4.3 1482) [id number] 17:54:00 Test Item Value Reference Range Interpretation [...] patients with mechanical heart valves.CT, BRAIN, WITHOUT [id number] 17:49:00Reason for exam:->DIZZINESSWhat is the patient's sedation [...] further evaluation with MRI is recommended. Signed: Darci Blake MDReport Verified Date/Time: 07/25/2018 17:49:33 Reading Location: [facility] Radiology Reading Room BASIC METABOLIC [id number] 17:42:00 Test Item Value Reference Range Interpretation [...] CALCU LATE m ESTIMATED GFR. HEPATIC FUNCTION [id number] 17:42:00 Test Item Value Reference Range Interpretation [...] (test code = 31 U/L 5-50 347) [id number] 17:42:00 Test Item Value Reference Range Interpretation Comments LIPASE (BEAKER) (test code = 749) 235 U/L 40-240 [id number] 17:42:00 Test Item Value Reference Range Interpretation Comments MAGNESIUM (BEAKER) (test code = 2.0 mg/dL 1.5-3.0 627) RAD, CHEST, 2 [id number] 17:42:00Reason for exam:->sobFINAL REPORT Chest, PA and lateral. History: Shortness of breath. Comparison: None available. Discussion: The cardiomediastinal silhouette and pulmonary vasculature are withinnormal limits. The lungs are clear without evidence of consolidation or effusion. There are no acute osseous abnormalities. The soft tissues are unremarkable. IMPRESSION: No acute cardiopulmonary abnormality. Signed: Long Obando MDReport Verified Date/Time: 07/25/2018 17:42:28 Reading Location:[address] Radiology Reading Room CBC W/PLT COUNT & AUTO [id number] 17:29:00 Test Item Value Reference Range Interpretation [...]
[2022-02-01] MEDS ORDERED: ONDANSETRON 4 MG/2 ML VIAL ONE ×2 (18:42→22:48)
[2022-02-01] MEDS ORDERED: MORPHINE 4 MG/ML SYR ONE ×3 (18:42→19:52)
[2022-02-01] MEDS ORDERED: NA CHLORIDE 0.9% 1,000 ML ONE ×2 (18:42→20:52)
[2022-02-01 18:55] LABS: Urine Blood Negative (Negative); Urine Glucose Negative (Negative); Urine Protein 1+ (Negative); Urine Specific Gravity >=1.030 (1.005-1.030)
[2022-02-01 18:56] LABS: Absolute Lymphocytes (CBC) 1.4 K/uL (0.7-4.9); Hematocrit 36.6 % (36.0-45.0); Lymphocytes % 11.8 % (15.3-44.8); MCV 87.5 fL (80-100); MPV 7.3 fL (7.6-11.3); RBC Red Blood Cell Count 4.18 M/uL (3.86-4.86)
[2022-02-01 19:11] LABS: Potassium 3.7 mmol/L (3.5-5.1)
[2022-02-01 19:12] LABS: Bilirubin Total 0.4 mg/dL (0.2-1.0); Protein, Total 7.9 g/dL (6.4-8.2)
--- NOTE | 2022-02-01 20:19 | RAD REPORT ---
EXAM DESCRIPTION: CT - Abdomen Pelvis W Contrast - 02/01/2022 7:53 pm CLINICAL HISTORY: Abdominal pain, acute, nonlocalized COMPARISON: Abdomen Pelvis W Contrast dated 07/19/2018 TECHNIQUE: Biphasic, helical CT imaging of the abdomen and pelvis was performed following 100 ml non -ionic IV contrast. No oral contrast administered. All CT scans are performed using dose optimization technique as appropriate and may include automated exposure control or mA/KV adjustment according to patient size. FINDINGS: No suspicious findings in the lung bases. The liver, spleen, and pancreas show no suspicious findings. Gallbladder is absent. Intrahepatic and extrahepatic biliary tree dilatation is present. Common bile duct measures up to 13 mm which is incre ased from approximately 10 mm in 2019. No pancreatic or duodenal mass identified. Duct stones can be occult. This may be the reservoir effect that can occur after a cholecystectomy. Symmetric renal function is seen with no hydronephrosis or suspicious renal mass. No pyelonephritis o r acute parenchymal process. No bladder abnormalities. No adrenal abnormalities. Uterus is absent. Pe lvic floor laxity is present. Ovaries are absent or possibly atrophic. No BALLING HEAD TENDER abnormality seen. Gastric bypass surgical changes are noted. No abnormality seen along the staple line. Pandey of the ga stric antrum and duodenal bulb are thickened and edematous. extraluminal free air is present adjacent to the antrum and bulb. Small amount of free fluid is present. There is stranding and edema present. Distal portions of the duodenal C-loop are unremarkable. Stomach and small bowel loops are otherwise unremarkable. No distant free air. No abscess or drainable fluid collection. Small amount of free fl uid is present adjacent to the liver. No mass or bulky lymphadenopathy. No suspicious bony findings. IMPRESSION: Gastric antrum and duodenal bulb wall thickening and edema with free air, fluid and stra nding in the adjacent fatty tissues. This is most likely a perforated ulcer of the bulb or antrum. No abscess or drainable fluid collection. Intrahepatic and extrahepatic biliary tree dilatation with the common bile duct up to 13 mm. This is an increased over 2019. No obstructing mass seen. Duct stones can be occult. This could also be the r eservoir effect that occurs after a cholecystectomy.
--- NOTE | 2022-02-01 20:39 | ER ---
Nurse's Notes [facility] Name: Minnie Flores Age: 66 yrs Sex: Female : 1955 Arrival Date: 02/01/2022 Time: 15:07 Bed 12 Private MD: Diagnosis: Perforated ulcer of the gasric antrum of duodenal bulb Presentation: 02/01 15:31 Chief complaint: Sudden onset RUQ pain and nausea x 2 hours. Coronavirus screen: At this time, the client does not indicate any symptoms associated with coronavirus-19. Ebola Screen: No symptoms or risks identified at this time. Risk Assessment: Do you want to hurt yourself or someone else? Patient reports no desire to harm self or others. Onset of symptoms was February 01, 2022. 15:31 Method Of Arrival: Wheelchair hb 15:31 Acuity: AMY 3 hb Triage Assessment: 15:33 General: Appears in no apparent distress. uncomfortable, Behavior is calm, cooperative. hb Pain: Pain currently is 10 out of 10 on a pain scale. Neuro: Level of Consciousness is awake, alert, obeys commands, Oriented to person, place, time, situation. Cardiovascular: Patient's skin is warm and dry. Respiratory: Respiratory effort is even, unlabored, Respiratory pattern is symmetrical, tachypnea. GI: Reports upper abdominal pain. Historical: - Allergies: 15:33 Prilosec; hb 15:33 Seroquel; hb - PMHx: 15:33 Bipolar disorder; Degenerative disc disease; Depression; Fibromyalgia; hb - Immunization history:: Client reports receiving the 2nd dose of the Covid vaccine. - Social history:: Smoking status: Patient denies any tobacco usage or history of. Screenin:56 Abuse screen: Denies threats or abuse. Denies injuries from another. Nutritional ld1 screening: No deficits noted. Tuberculosis screening: No symptoms or risk factors identified. Fall Risk None identified. Assessment: 18:56 General: Appears in no apparent distress. uncomfortable, Behavior is cooperative, ld1 appropriate for age, anxious, crying, fussy. Pain: Complains of pain in abdomen Pain does not radiate. Pain currently is 10 out of 10 on a pain scale. Quality of pain is described as sharp, shooting, throbbing. Neuro: Level of Consciousness is awake, alert, obeys commands, Oriented to person, place, time, situation. Cardiovascular: Capillary refill < 3 seconds Patient's skin is warm and dry. Respiratory: Airway is patent Respiratory effort is even, unlabored. GI: Abdomen is round non-distended, Bowel sounds present X 4 quads. Abd is soft Abdomen is tender to palpation X 4 quads. GI: Reports nausea, vomiting. : No signs and/or symptoms were reported regarding the genitourinary system. EENT: No signs and/or symptoms were reported regarding the EENT system. Derm: No signs and/or symptoms reported regarding the dermatologic system. Musculoskeletal: No signs and/or symptoms reported regarding the musculoskeletal system. 20:52 Reassessment: Pt's jewelry removed and placed in a clear container. Jewelry includes kd3 two rings, a necklace and a pair of balta earrings. Vital Signs: 15:31 BP 142 / 72; Pulse 67; Resp 20; Temp 97(TE); Pulse Ox 100% on R/A; Weight 90.72 kg; hb Height 5 ft. 6 in. (167.64 cm); Pain 10/10; 18:56 BP 136 / 76; Pulse 71; Resp 18; Pulse Ox 100% ; Pain 10/10; ld1 19:30 BP 153 / 72; Pulse 77; Resp 18; Pulse Ox 100% on R/A; bh1 21:39 BP 152 / 68; Pulse 76; Resp 20; Pulse Ox 97% on R/A; bh1 15:31 Body Mass Index 32.28 (90.72 kg, 167.64 cm) hb ED Course: 15:07 Patient arrived in ED. mr 15:33 Triage completed. hb 15:33 Arm band placed on. hb 18:14 Benja Cole, CRYSTAL is PHCP. pm1 18:14 Nabeel Ellis MD is Attending Physician. pm1 18:32 Michelle Daugherty, CHAPARRO is Primary Nurse. ld1 18:54 CBC with Diff Sent. mb7 18:54 CMP Sent. mb7 18:54 Lipase Sent. mb7 18:54 Inserted saline lock: 20 gauge in left forearm, using aseptic technique. Blood mb7 collected. 18:56 Patient has correct armband on for positive identification. Placed in gown. Bed in low ld1 position. Call light in reach. Side rails up X2. Pulse ox on. NIBP on. Door closed. Noise minimized. Warm blanket given. 18:56 No provider procedures requiring assistance completed. 1 19:15 Primary Nurse role handed off by Michelle Daugherty, CHAPARRO [facility] 19:15 Slime Lovelace, CHAPARRO is Primary Nurse. [facility] 19:54 CT Abd/Pelvis - IV Contrast Only In Process Unspecified. EDMS 20:37 Brian Dalton is Hospitalizing Provider. pm1 21:13 SARS RAPID Sent. kd3 21:37 No apparent distress. Appears restless. Awaiting bed assignment. [facility] Administered Medications: 18:56 Drug: NS 0.9% 1000 ml Route: IV; Rate: 1 bolus; Site: left antecubital; 1 21:40 Follow up: IV Status: Completed infusion; IV Intake: 1000ml [facility] 18:56 Drug: Zofran (Ondansetron) 4 mg Route: IVP; Site: left wrist; ld1 21:40 Follow up: Response: No adverse reaction [facility] 18:56 Drug: morphine 4 mg Route: IVP; Infused Over: 4 mins; Site: left wrist; ld1 19:17 Follow up: Response: No adverse reaction [facility] 19:42 Drug: morphine 4 mg Route: IVP; Infused Over: 4 mins; Site: left forearm; bb 20:30 Follow up: Response: No change in condition [facility] 20:31 Drug: morphine 4 mg Route: IVP; Infused Over: 4 mins; Site: left antecubital; 1 20:31 Follow up: Response: No adverse reaction [facility] 20:31 Follow up: Response: No adverse reaction [facility] 21:04 Drug: Zosyn (piperacillin-tazobactam) 3.375 grams Route: IVPB; Infused Over: 60 mins; [facility] Site: left antecubital; 21:37 Follow up: IV Status: Infusion continued; IV Intake: 100ml [facility] 21:04 Drug: NS 0.9% 1000 ml Route: IV; Rate: 100 ml/hr; Site: left antecubital; [facility] 21:37 Follow up: IV Status: Infusion continued [facility] Medication: 18:56 VIS not applicable for this client. [facility] Intake: 21:37 IV: 100ml; Total: 100ml. bh1 21:40 IV: 1000ml; Total: 1100ml. bh1 Outcome: 20:39 Decision to Hospitalize by Provider. pm1 22:03 Patient left the ED. [facility] Signatures: Dispatcher [employer] SUNDARNasrin CardonaShivani, RN RN bb Benja Cole, CROP FARM HELPER [employer] FARM HELPER pm1 Nicolette Tubbs RN RN Michelle Daugherty RN RN ld1 Jennifer Jensen RN RN 3 Nasrin Estrada 7 Slime Lovelace RN RN 1 Corrections: (The following items were deleted from the chart) 15:35 15:31 BP 140 / 116; Pulse 67bpm; Resp 20bpm; Pulse Ox 100% RA; Temp 97F Temporal; 90.72 hb kg; Height 5 ft. 6 in.; BMI: 32.2; Pain 10/10; hb 21:39 19:30 BP 152 / 68; Pulse 76bpm; Resp 20bpm; Pulse Ox 97% RA; bh1 1
--- NOTE | 2022-02-01 20:40 | EDPHYS ---
Physician Documentation [facility] Name: Minnie Flores Age: 66 yrs Sex: Female : 1955 Arrival Date: 02/01/2022 Time: 15:07 Bed 12 Private MD: ED Physician Nabeel Ellis HPI: 02/01 18:20 This 66 yrs old Female presents to ER via Wheelchair with complaints of Abdominal Pain. pm1 18:20 The patient presents with abdominal pain that is diffuse. Onset: The symptoms/episode pm1 began/occurred today, at 14:00. The symptoms do not radiate. Associated signs and symptoms: none. Pertinent negatives: nausea, vomiting, and diarrhea, chest pain, shortness of breath. The symptoms are described as achy. Modifying factors: The symptoms are alleviated by nothing, the symptoms are aggravated by movement. Severity of pain: in the emergency department the pain is actually worse. The patient has not experienced similar symptoms in the past. The patient has not recently seen a physician. Last PO intake 0900. Historical: - Allergies: 15:33 Prilosec; hb 15:33 Seroquel; hb - PMHx: 15:33 Bipolar disorder; Degenerative disc disease; Depression; Fibromyalgia; hb - Immunization history:: Client reports receiving the 2nd dose of the Covid vaccine. - Social history:: Smoking status: Patient denies any tobacco usage or history of. ROS: 18:20 Constitutional: Negative for fever, chills, and weight loss, Cardiovascular: Negative pm1 for chest pain, palpitations, and edema, Respiratory: Negative for shortness of breath, cough, wheezing, and pleuritic chest pain. 18:20 : Negative for injury, bleeding, discharge, and swelling, MS/Extremity: Negative for injury and deformity, Skin: Negative for injury, rash, and discoloration, Neuro: Negative for headache, weakness, numbness, tingling, and seizure. 18:20 Abdomen/GI: Positive for abdominal pain, of the abdomen diffusely, Negative for nausea, vomiting, and diarrhea. 18:20 Back: Positive for chronic low back pain. No increased pain or new pain to back. 18:20 All other systems are negative. Exam: 18:20 Constitutional: This is a well developed, well nourished patient who is awake, alert, pm1 and in no acute distress. Head/Face: Normocephalic, atraumatic. 18:20 Back: No spinal tenderness. No costovertebral tenderness. Full range of motion. Skin: Warm, dry with normal turgor. Normal color with no rashes, no lesions, and no evidence of cellulitis. MS/ Extremity: Pulses equal, no cyanosis. Neurovascular intact. Full, normal range of motion. 18:20 Eyes: Exam is negative for acute changes, Pupils: no acute changes, Extraocular movements: intact throughout, Conjunctiva: no acute changes, no injection. 18:20 ENT: Exam is negative for acute changes, Mouth: no acute changes, Lips: normal, moist, Oral mucosa: normal, pink and intact, moist. 18:20 Cardiovascular: Exam negative for acute changes, Rate: normal, Rhythm: regular, Pulses: no pulse deficits are appreciated, Heart sounds: normal, normal S1and S2. 18:20 Respiratory: Exam negative for acute changes, respiratory distress, shortness of breath, Breath sounds: are clear throughout. 18:20 Abdomen/GI: Inspection: distension, that is mild, obese Palpation: soft, in all quadrants, moderate abdominal tenderness, in the right upper quadrant and left upper quadrant. 18:20 Neuro: Exam negative for acute changes, Orientation: is normal, Mentation: is normal, Motor: moves all fours. Vital Signs: 15:31 BP 142 / 72; Pulse 67; Resp 20; Temp 97(TE); Pulse Ox 100% on R/A; Weight 90.72 kg; hb Height 5 ft. 6 in. (167.64 cm); Pain 10/10; 18:56 BP 136 / 76; Pulse 71; Resp 18; Pulse Ox 100% ; Pain 10/10; ld1 19:30 BP 153 / 72; Pulse 77; Resp 18; Pulse Ox 100% on R/A; bh1 21:39 BP 152 / 68; Pulse 76; Resp 20; Pulse Ox 97% on R/A; bh1 15:31 Body Mass Index 32.28 (90.72 kg, 167.64 cm) hb MDM: 18:17 Patient medically screened. pm1 20:25 Counseling: I had a detailed discussion with the patient and/or guardian regarding: the pm1 historical points, exam findings, and any diagnostic results supporting the discharge/admit diagnosis, lab results, radiology results, the need for further work-up and treatment in the hospital. 20:35 Physician consultation: Sorin Morrow MD was called at 20:35, was contacted at 20:35, pm1 regarding admission, patient's condition, and will see patient shortly, would like admission per Dr. Brian Dalton Will contact housekeeping room inspector and OR team will take patient to the OR shortly. 20:37 Physician consultation: Waleska FERRERA regarding admission, patient's condition, and pm1 will see patient in ED, shortly. 20:49 Data reviewed: vital signs. Data interpreted: Pulse oximetry: on room air is 100 %. pm1 Interpretation: normal. 02/01 18:18 Order name: CBC with Diff; Complete Time: 19:04 pm1 02/01 18:18 Order name: CMP; Complete Time: 19:19 pm1 02/01 18:18 Order name: Lipase; Complete Time: 19:19 pm1 02/01 18:18 Order name: CT Abd/Pelvis - IV Contrast Only; Complete Time: 20:23 pm1 02/01 18:56 Order name: Urine Dipstick-Ancillary; Complete Time: 18:57 EDCA 02/01 20:34 Order name: SARS RAPID pm1 02/01 20:24 Order name: EKG; Complete Time: 20:25 pm1 02/01 18:18 Order name: IV Saline Lock; Complete Time: 18:54 pm1 02/01 18:18 Order name: Labs collected and sent; Complete Time: 18:54 pm1 02/01 18:18 Order name: Urine Dipstick-Ancillary (obtain specimen); Complete Time: 18:54 pm1 02/01 20:24 Order name: NPO; Complete Time: 21:04 pm1 Administered Medications: 18:56 Drug: NS 0.9% 1000 ml Route: IV; Rate: 1 bolus; Site: left antecubital; ld1 21:40 Follow up: IV Status: Completed infusion; IV Intake: 1000ml [facility] 18:56 Drug: Zofran (Ondansetron) 4 mg Route: IVP; Site: left wrist; ld1 21:40 Follow up: Response: No adverse reaction [facility] 18:56 Drug: morphine 4 mg Route: IVP; Infused Over: 4 mins; Site: left wrist; ld1 19:17 Follow up: Response: No adverse reaction [facility] 19:42 Drug: morphine 4 mg Route: IVP; Infused Over: 4 mins; Site: left forearm; 20:30 Follow up: Response: No change in condition [facility] 20:31 Drug: morphine 4 mg Route: IVP; Infused Over: 4 mins; Site: left antecubital; [facility] 20:31 Follow up: Response: No adverse reaction [facility] 20:31 Follow up: Response: No adverse reaction [facility] 21:04 Drug: Zosyn (piperacillin-tazobactam) 3.375 grams Route: IVPB; Infused Over: 60 mins; [facility] Site: left antecubital; 21:37 Follow up: IV Status: Infusion continued; IV Intake: 100ml [facility] 21:04 Drug: NS 0.9% 1000 ml Route: IV; Rate: 100 ml/hr; Site: left antecubital; [facility] 21:37 Follow up: IV Status: Infusion continued [facility] Disposition Summary: 02/01/22 20:39 Hospitalization Ordered Hospitalization Status: Inpatient Admission pm1 Provider: Brian Dalton 1 Location: Operating Room pm1 Condition: Guarded pm1 Problem: new pm1 Symptoms: are unchanged pm1 Bed/Room Type: Standard 1 Room Assignment: pm1 Diagnosis - Perforated ulcer of the gasric antrum of duodenal bulb pm1 Forms: - Medication Reconciliation Form pm1 - SBAR form pm1 Signatures: Dispatcher [employer] EDMS Shivani Briggs RN RN bb Benja Cole NP [employer] SPECIALIST pm1 Nicolette Tubbs RN RN hb Dibbern, Lauren, RN RN ld1 Waleska Arizmendi PA PA sb3 Slime Lovelace RN RN [facility] Corrections: (The following items were deleted from the chart) 21:01 20:35 Physician consultation: Sorin Morrow MD was called at 20:35, was contacted at pm1 20:35, regarding admission, patient's condition, and will see patient shortly, Will contact housekeeping room inspector and OR team will take patient to the OR shortly, pm1
[2022-02-01] MEDS ORDERED: PIPERACIL/TAZO 3.375 GM VIAL IV ONE (20:52)
[2022-02-01] MEDS ORDERED: NA CHLORIDE 0.9% 100 ML ONE (20:52)
[2022-02-01] MEDS ORDERED: FENTANYL CITR 100 MCG/2 ML ONE ×3 (22:02→23:31)
[2022-02-01] MEDS ORDERED: ROCURONIUM 50 MG/5 ML VIAL IV ONE (22:02)
[2022-02-01] MEDS ORDERED: LIDOCAINE 2% MPF 5 ML VIAL ONE (22:02)
[2022-02-01] MEDS ORDERED: propofoL 200 MG/20 ML VIAL IV ONE (22:02)
[2022-02-01 22:09] LABS: SARS-CoV-2 Antigen Rapid Res Negative (Negative)
[2022-02-01] MEDS ORDERED: Phenylephrine HCl 10 MG/ML 1 ML VIAL ONE (22:09)
[2022-02-01] MEDS ORDERED: Ringers Lactate 1,000 ML IV ONE ×2 (22:11→23:37)
[2022-02-01] MEDS ORDERED: SUCCINYLCHOLINE 20 MG/ML (10 ML) IV ONE (22:20)
--- NOTE | 2022-02-01 22:38 | P.HP ---
Date of Service: 02/01/22 PC: This 66-year-old female presented to the emergency room with severe abdominal pain for diagnosis and treatment. HPC: Patient had sudden onset of severe abdominal pain around about 2:00 today. Describes it as starting suddenly. Has been unrelenting and only getting worse. Hurts every time she tries to move. PSHx: Previous hysterectomy, cholecystectomy, and Samantha-en-Y bypass PMHx: Depression, reflux, fibromyalgia Social Hx: States she is allergic to omeprazole Sys R: No cough, wheeze, shortness of breath. No chest pain or palpitations. Says she also fibromyalgia which for whom she sees a pain doctor. She supplements her pain medicine with aspirin. Sometimes she takes Sometimes she takes up to 8 at a time. O/E: Awake alert very uncomfortable vital signs are stable HEENT: Nonicteric Chest: Chest movement equal bilaterally Abd: Peritonitis [place]: Intact Data: CT demonstrates possible perforation at the antrum/duodenum Impression: Perforated viscus Plan: I will take him to the operating room for exploratory laparotomy. We will repair the hole in her bowel. The risks of this procedure have been discussed. The possibility of bleeding, infection, abscess formation and need for further surgeries and procedures in the future were explained. Hernia formation, injury to blood vessels bowel and surrounding structures were explained. She understands and wants us to proceed. Her is going home as he is difficulty seeing at nighttime.
[2022-02-01] MEDS ORDERED: dexAMETHasone 10 MG/ML VIAL ONE (22:48)
[2022-02-01] MEDS ORDERED: KETOROLAC 30 MG/ML INJ ONE (22:49)
--- NOTE | 2022-02-01 23:34 | P.HP ---
Certification for Inpatient Patient admitted to: Inpatient With expected LOS: >2 Midnights Patient will require the following post-hospital care: None Practitioner: I am a practitioner with admitting privileges, knowledge of patient current condition, hospital course, and medical plan of care. Services: Services provided to patient in accordance with Admission requirements found in Title 42 Section 412.3 of the Code of Federal Regulations Patient History Date of Service: 02/02/22 Reason for admission: Perforated Gastric Ulcer History of Present Illness: Patient is a 66 y/o F with DDD, bipolar, and fibromyalgia who presented to the ED with sudden onset of severe abdominal pain around about 1400 today. Has been unrelenting and only getting worse. Hurts every time she tries to move. She also reports nausea and abdominal distension. Labs significant for WBC 11.8, lipase 1087, urine positive for UTI. CT abd/pelv showed "gastric antrum and duodenal bulb wall thickening and edema with free air, fluid and stranding in the adjacent fatty tissues. This is most likely a perforated ulcer of the bulb or antrum. No abscess or drainable fluid collection. Intrahepatic and extrahepatic biliary tree dilatation with the common bile duct up to 13 mm. This is an increased over 2019. No obstructing mass seen. Duct stones can be occult. This could also be the reservoir effect that occurs after a cholecystectomy." General surgery was contacted and took patient to surgery shortly after. Ex lap in progress at this time. She will be taken to ICU after. Allergies omeprazole [From Prilosec] Allergy (Verified 07/25/16 05:39) Nausea/Vomiting aspartame Adverse Reaction (Verified 07/25/16 00:26) migraine Home medications list reviewed: Yes Home Medications: Acarbose [Precose] 50 mg PO BIDAC 08/18/14 Aspirin Chewable [Aspirin Chewable*] 81 mg PO DAILY #30 tab.chew 08/18/14 Buspirone HCl [Buspar] 15 mg PO Q6HR 08/18/14 Hydrocodone/Acetaminophen [Hydrocodon-Acetaminophn 10-325] 10 - 325 mg PO Q6HR 08/18/14 Lurasidone HCl [Latuda] 120 mg PO DAILY 08/18/14 OXcarbazepine [Trileptal] 600 mg PO BID 08/18/14 LORazepam [Lorazepam] 1 tab PO BEDTIME 01/16/17 Ranitidine [Zantac*] 150 mg PO BID #60 tab 07/25/16 SUMAtriptan succinate [Sumatriptan Succinate] 100 mg PO BID PRN 07/25/16 - Past Medical/Surgical History Diabetic: No -: degenerative disk -: fibromyalgia -: arthritis -: colitis -: depression -: gastric bypass -: Bi knee sx -: cholecystectomy -: bladder suspension Psychosocial/ Personal History: Patient is . - Family History Father -: Other (see notes) Notes: asbestosis, degenerative back disease Mother -: Diabetes, Cancer, Other (see notes) Notes: skin ca, dementia - Social History Smoking Status: Never smoker Alcohol use: No CD- Drugs: No Caffeine use: Yes Place of Residence: Home Review of Systems Gastrointestinal: Nausea, Abdominal Pain, Distention Physical Examination - Vital Signs Temperature: 97.4 F Blood Pressure: 141/73 Pulse: 89 Respirations: 24 - Physical Exam General: Alert, Moderate distress HEENT: Atraumatic, PERRLA, EOMI, Sclerae nonicteric Neck: Supple, 2+ carotid pulse no bruit, No LAD, Without JVD or thyroid abnormality Respiratory: Clear to auscultation bilaterally, Normal air movement Cardiovascular: Regular rate/rhythm, Normal S1 S2 Gastrointestinal: Distended, Tenderness, Guarding Musculoskeletal: No tenderness Integumentary: No rashes Neurological: Normal speech, Normal strength at 5/5 x4 extr, Normal tone, Normal affect - Studies Laboratory Data (last 24 hrs) 02/01/22 18:45: Sodium 137, Potassium 3.7, BUN 8, Creatinine 0.84, Glucose 170 H, Total Bilirubin 0.4, AST 33, ALT 78, Alkaline Phosphatase 164 H, Lipase 1087 H 02/01/22 18:45: WBC 11.8 H, Hgb 11.9 L, Hct 36.6, Plt Count 513 H Assessment and Plan - Problems (Diagnosis) (1) Gastric ulcer with perforation Current Visit: Yes Status: Acute Qualifiers: Gastric ulcer chronicity: acute Qualified Code(s): K25.1 - Acute gastric ulcer with perforation (2) Elevated lipase Current Visit: Yes Status: Acute (3) UTI (urinary tract infection) Current Visit: Yes Status: Acute Qualifiers: Urinary tract infection type: acute cystitis Hematuria presence: without hematuria Qualified Code(s): N30.00 - Acute cystitis without hematuria (4) Peritonitis Current Visit: Yes Status: Acute - Plan -Patient admitted to ICU following ex lap -Cont IV zosyn -IV pain medications PRN -Gen surgery, destini Morrow. NG tube in place. NPO. -Monitor on telemetry -Reconcile and continue home medications as appropriate -Monitor and replete electrolytes per protocol -VTE ppx -Full code Discharge Plan: Home Plan to discharge in: Greater than 2 days - Advance Directives Does patient have a Living Will: Yes Does patient have a Durable POA for Healthcare: Yes - Code Status/Comfort Care Code Status Assessed: Yes (Full) Critical Care: No Time Spent Managing Pts Care (In Minutes): 70
[2022-02-02] MEDS ORDERED: GLYCOPYRROLATE 0.2 MG/ML SYR ONE (00:05)
[2022-02-02] MEDS ORDERED: MORPHINE 10 MG/ML VIAL ONE (00:34)
--- NOTE | 2022-02-02 00:43 | P.OP ---
Preoperative diagnosis: Perforated viscus Postoperative diagnosis: Perforated gastric ulcer Primary procedure: Exploratory laparotomy Secondary procedure: Tucker patch Anesthesia: General Estimated blood loss: Less than 20 cc Specimen: None sent Findings: Gastric perforation Operative Technique: The patient brought the operating room and placed supine on the table. After the induction of adequate general endotracheal anesthesia, there the abdomen was prepped with a DuraPrep solution, she was draped in the usual aseptic manner. A Mendoza catheter had been inserted. A generous midline incision was made. This was brought down through the skin and subcutaneous tissue. The fascia was identified in the midline. This was opened with electrocautery to expose the preperitoneal fat. We were now able to enter the peritoneal cavity. A finger was placed into the incision to protect the underlying contents probably opened for the full length of our excision extending from the umbilicus to just below the xiphoid process. We were now able to visualize the peritoneal contents. There was no gross contamination seen when we initially entered the abdominal cavity. The patient had an area of adhesions across where the transverse colon was. This had some small bowel from her previous [id number] the adhesions to the anterior abdominal wall were careful ly then taken down using blunt and sharp dissection. This area having been freed on the left, attention was turned towards the right side where the patient had a previous cholecystectomy. These adhesions were gently taken down from that area. As we entered this part we had a sudden gush of bilious material. This was aspirated from the peritoneal cavity. There was now irrigated with a copious amount of a saline solution until the effluent was clear. On tracing this down we could see that that just at the junction of the pylorus with the duodenum there was a nice hole that measured approximately 4 mm in size. 3 sutures were placed of silk. A Tucker patch was now formed by taking a piece of fat from the surrounding area placing it over the holes and tying down on the is sutures. The hole was closed. Another piece of fat was laid over the top of our patch again and this was tacked in place using some chromic to hold it firmly in place. On pressing on the stomach, there was no more leakage observed. A nasogastric tube was now carefully passed by anesthesia. We could feel go into the stomach. We did not force it and it was laying straight, and will be confirmed by abdominal films in the postoperative period. At this point a Hernandez-Sullivan drain was placed across this line on top over towards Morison's pouch. This was brought out through a separate stab wound incision on the right side of the abdominal wall. The pelvis was now aspirated of all contents. The patient was returned to the neutral position on the OR table. The midline incision was now closed with 2 oh looped nylon. One was started from the top and one from the bottom. These were tied at the midpoint. The subcutaneous tissue was now inspected to ensure adequate hemostasis. The skin was loosely approximated with jennifer. Iodoform gauze was placed between the jennifer. At this point the patient was in a stable condition, an abdominal binder was applied after sterile dressings had been secured. At the end of the procedure she was stable and sent to recovery room. Needle sponge instrument count were correct. 1 VITO drain was placed. Complications: None Drain(s): Nasogastric, VITO drain Transferred to: Recovery Room Condition: Good
[2022-02-02] MEDS ORDERED: SODIUM CHLORIDE 0.9% 10ML INJ IV PRN (00:49)
[2022-02-02] MEDS: MORPHINE 4 MG/ML SYR IV PRN ×11 (01:15→23:57)
[2022-02-02 01:43] VITALS: BMI 34.0
[2022-02-02 04:47] LABS: Absolute Lymphocytes (CBC) 0.5 K/uL (0.7-4.9); Lymphocytes % 13.4 % (15.3-44.8); MCV 86.8 fL (80-100); MPV 7.4 fL (7.6-11.3)
[2022-02-02 04:54] LABS: Magnesium 1.6 mg/dL (1.8-2.4); Potassium 4.1 mmol/L (3.5-5.1)
[2022-02-02 04:57] LABS: Phosphorus 1.8 mg/dL (2.5-4.9)
[2022-02-02] MEDS: PIPER TAZO 3.375 GM in NA CHLORIDE 0.9% 100 ML IV SCH ×3 (06:15→19:39)
[2022-02-02] MEDS ORDERED: MAGNESIUM SULFATE 1 gm IVPB 1 GM/100 ML BAG IV ONE (06:19)
--- NOTE | 2022-02-02 07:07 | RAD REPORT ---
EXAM DESCRIPTION: RAD - Abdomen 1 View (KUB) - 02/02/2022 1:11 am CLINICAL HISTORY: Placement of NGT/OGT. Post Insertion. COMPARISON: No comparisons FINDINGS: NG/OG tube has been placed. Tip is in the proximal most stomach with the side port of the tubing in the distal esophagus near the GE junction.
[2022-02-02] MEDS: PANTOPRAZOLE 40 MG INJ IVP SCH ×2 (09:49→19:39)
--- NOTE | 2022-02-02 13:44 | P.PN ---
Subjective Date of Service: 02/02/22 Chief Complaint: Perforated Gastric Ulcer Status post Tucker patch for perforated gastric ulcer. Vitals are stable. Patient complaining of intermittent pain, no nausea. Physical Examination - Vital Signs Temperature: 97 F Blood Pressure: 124/57 Pulse: 108 Respirations: 22 Pulse Ox (%): 98 - Physical Exam General: Alert, In no apparent distress, Oriented x3 HEENT: Mucous membr. moist/pink Neck: JVD not distended Respiratory: Clear to auscultation bilaterally, Normal air movement Cardiovascular: No edema, Regular rate/rhythm, Normal S1 S2 Gastrointestinal: Non-distended, Other (Abdominal binder in place), Absent bowel sounds Musculoskeletal: No swelling Integumentary: No rashes, No cyanosis Neurological: Normal strength at 5/5 x4 extr - Studies Laboratory Data (last 24 hrs) 02/01/22 18:45: Sodium 137, Potassium 3.7, BUN 8, Creatinine 0.84, Glucose 170 H, Total Bilirubin 0.4, AST 33, ALT 78, Alkaline Phosphatase 164 H, Lipase 1087 H 02/01/22 18:45: WBC 11.8 H, Hgb 11.9 L, Hct 36.6, Plt Count 513 H Assessment And Plan - Current Problems (Diagnosis) (1) Gastric ulcer with perforation Current Visit: Yes Status: Acute Qualifiers: Gastric ulcer chronicity: acute Qualified Code(s): K25.1 - Acute gastric ulcer with perforation (2) Peritonitis Current Visit: Yes Status: Acute (3) UTI (urinary tract infection) Current Visit: Yes Status: Acute Qualifiers: Urinary tract infection type: acute cystitis Hematuria presence: without hematuria Qualified Code(s): N30.00 - Acute cystitis without hematuria - Plan Status post Tucker patch postop day 1. Continue antibiotics for possible peritonitis. Continue IV Protonix. Follow pathology. May need treatment for Helicobacter pending pathology result. Supportive measures-pain management as needed, antiemetics. Incentive spirometer. Monitor and optimize electrolytes IV hydration NG tube in place with minimal output. General surgery to follow
[2022-02-02] MEDS: D5 0.9 NS 1,000 ML IV SCH (16:44)
--- NOTE | 2022-02-02 16:55 | P.PN ---
Date of Service: 02/02/22 S: Patient has no specific complaints. Pain appears to be well controlled. Says pain is much improved since yesterday just different. O: Vital signs are stable, NG tube had minimal out. VITO drain some serosanguineous, no bilious fluid noted. A: Surgically stable P: I will leave the nasogastric tube for another 24 hours. At that point we may start her on some clear liquids. I am concerned that she would blow my patch off should she have any postoperative ileus or abdominal distention. Otherwise the patient is well, may be transferred from the ICU when medically stable.
[2022-02-02] MEDS: ONDANSETRON 4 MG/2 ML VIAL IV PRN (23:57)
[2022-02-03] MEDS: D5 0.9 NS 1,000 ML IV SCH ×3 (02:06→23:35)
[2022-02-03] MEDS: MORPHINE 4 MG/ML SYR IV PRN ×5 (02:06→20:10)
[2022-02-03] MEDS: PIPER TAZO 3.375 GM in NA CHLORIDE 0.9% 100 ML IV SCH ×3 (04:08→20:09)
[2022-02-03 06:33] LABS: Hematocrit 27.6 % (36.0-45.0); Lymphocytes % 9.9 % (15.3-44.8); MCV 87.2 fL (80-100); MPV 7.2 fL (7.6-11.3); RBC Red Blood Cell Count 3.16 M/uL (3.86-4.86)
[2022-02-03 06:52] LABS: Magnesium 2.1 mg/dL (1.8-2.4); Potassium 3.8 mmol/L (3.5-5.1)
[2022-02-03] MEDS ORDERED: KETOROLAC 30 MG/ML INJ IV ONE (07:22)
[2022-02-03 07:33] LABS: Blood Morphology Comment NOT SEEN (NOT SEEN); Platelet Estimate ADEQ; White Blood Cell Scan OK (OK)
[2022-02-03] MEDS: PANTOPRAZOLE 40 MG INJ IVP SCH ×2 (08:45→20:10)
[2022-02-03] MEDS ORDERED: HYDROMORPHONE HCL 1 MG/ML INJ IV ONE (10:44)
[2022-02-03] MEDS ORDERED: NA CHLORIDE 0.9% 100 ML ONE (12:46)
--- NOTE | 2022-02-03 13:30 | P.PN ---
Subjective Date of Service: 02/03/22 Chief Complaint: Perforated Gastric Ulcer Status post Tucker patch for perforated gastric ulcer day 2 Patient complaining of persistent pain and getting the pain medications [id number]. No significant NG tube output. Physical Examination - Vital Signs Temperature: 98.2 F Blood Pressure: 131/60 Pulse: 106 Respirations: 17 Pulse Ox (%): 94 Assessment And Plan - Current Problems (Diagnosis) (1) Gastric ulcer with perforation Current Visit: Yes Status: Acute Qualifiers: Gastric ulcer chronicity: acute Qualified Code(s): K25.1 - Acute gastric ulcer with perforation (2) Peritonitis Current Visit: Yes Status: Acute (3) UTI (urinary tract infection) Current Visit: Yes Status: Acute Qualifiers: Urinary tract infection type: acute cystitis Hematuria presence: without hematuria Qualified Code(s): N30.00 - Acute cystitis without hematuria - Plan Physical Exam General: Alert, In no apparent distress, Oriented x3 HEENT: Mucous membr. NG tube Respiratory: Clear to auscultation bilaterally, Normal air movement Cardiovascular: No edema, Regular rate/rhythm, Normal S1 S2 Gastrointestinal: Non-distended, Abdominal binder in place, Absent bowel sounds Musculoskeletal: No swelling Integumentary: No rashes, No cyanosis Neurological: Normal strength at 5/5 x4 extr Status post Tucker patch postop day 2. Continue antibiotics for possible peritonitis. Continue IV Protonix. Stretched IV morphine to IV hydromorphone. Patient reports better pain control with IV hydromorphone. No pathology obtained. May need to follow-up with GI as an outpatient for EGD and biopsy for Helicobacter testing. Check Helicobacter serology. Supportive measures-pain management as needed, antiemetics. Incentive spirometer. Monitor and optimize electrolytes IV hydration NG tube in place with minimal output. DC Mendoza catheter General surgery is following.
[2022-02-03] MEDS: HYDROMORPHONE HCL 1 MG/ML INJ IV PRN ×3 (13:57→22:25)
[2022-02-03] MEDS: ONDANSETRON 4 MG/2 ML VIAL IV PRN (20:27)
[2022-02-04] MEDS: HYDROMORPHONE HCL 1 MG/ML INJ IV PRN ×8 (01:28→23:30)
[2022-02-04] MEDS: ONDANSETRON 4 MG/2 ML VIAL IV PRN (02:15)
[2022-02-04] MEDS: PIPER TAZO 3.375 GM in NA CHLORIDE 0.9% 100 ML IV SCH ×3 (04:39→20:37)
[2022-02-04 06:41] LABS: Absolute Lymphocytes (CBC) 0.9 K/uL (0.7-4.9); Hematocrit 23.4 % (36.0-45.0); Lymphocytes % 9.2 % (15.3-44.8); MCV 87.3 fL (80-100); MPV 7.3 fL (7.6-11.3); RBC Red Blood Cell Count 2.68 M/uL (3.86-4.86)
[2022-02-04 06:49] LABS: Magnesium 2.1 mg/dL (1.8-2.4); Potassium 3.4 mmol/L (3.5-5.1)
[2022-02-04] MEDS: PANTOPRAZOLE 40 MG INJ IVP SCH ×2 (08:22→20:38)
[2022-02-04] MEDS: D5 0.9 NS 1,000 ML IV SCH ×2 (08:22→22:34)
--- NOTE | 2022-02-04 13:52 | P.PN ---
Subjective Date of Service: 02/04/22 Chief Complaint: Perforated Gastric Ulcer Status post Tucker patch for perforated gastric ulcer day 3 Patient complaining of nausea. No significant NG tube output. Physical Examination - Vital Signs Temperature: 97.1 F Blood Pressure: 133/61 Pulse: 85 Respirations: 18 Pulse Ox (%): 93 Assessment And Plan - Current Problems (Diagnosis) (1) Gastric ulcer with perforation Current Visit: Yes Status: Acute Qualifiers: Gastric ulcer chronicity: acute Qualified Code(s): K25.1 - Acute gastric ulcer with perforation (2) Peritonitis Current Visit: Yes Status: Acute (3) UTI (urinary tract infection) Current Visit: Yes Status: Acute Qualifiers: Urinary tract infection type: acute cystitis Hematuria presence: without hematuria Qualified Code(s): N30.00 - Acute cystitis without hematuria - Plan Physical Exam General: Alert, In no apparent distress, Oriented x3 HEENT: Mucous membr. NG tube Respiratory: Clear to auscultation bilaterally, Normal air movement Cardiovascular: No edema, Regular rate/rhythm, Normal S1 S2 Gastrointestinal: Non-distended, Abdominal binder in place, Absent bowel sounds Musculoskeletal: No swelling Integumentary: No rashes, No cyanosis Neurological: Normal strength at 5/5 x4 extr Status post Tucker patch postop day 3. Continue antibiotics for possible peritonitis. Continue IV Protonix. IV hydromorphone for pain. No pathology obtained. May need to follow-up with GI as an outpatient for EGD and biopsy for Helicobacter testing. Check Helicobacter serology. Supportive measures-pain management as needed, antiemetics. Incentive spirometer. Monitor and optimize electrolytes Continue IV hydration as patient is n.p.o. NG tube in place with minimal output. General surgery is following. Diet per Dr. Morrow.
--- NOTE | 2022-02-04 13:58 | P.PN ---
Date of Service: 02/04/22 S: Patient comfortable today, patient is comfortable today, no specific complaints, pain appears to be controlled. O: Minimal minimal out through his nasogastric tube, incision is clean A: Surgically stable minimal out through VITO drain, no longer bilious. PE: Patient is doing well status exploratory laparotomy and Tucker patch for perforated duodenal ulcer. We will continue to ambulate patient. Tomorrow we will most likely start on clear liquids after deseeding the nasogastric tube. Patient may shower today.
[2022-02-05] MEDS: HYDROMORPHONE HCL 1 MG/ML INJ IV PRN ×7 (02:43→21:05)
[2022-02-05] MEDS: PIPER TAZO 3.375 GM in NA CHLORIDE 0.9% 100 ML IV SCH ×3 (05:41→21:04)
[2022-02-05 05:47] LABS: Absolute Lymphocytes (CBC) 1.3 K/uL (0.7-4.9); Hematocrit 23.3 % (36.0-45.0); Lymphocytes % 12.1 % (15.3-44.8); MCV 86.1 fL (80-100); MPV 7.8 fL (7.6-11.3); RBC Red Blood Cell Count 2.71 M/uL (3.86-4.86)
[2022-02-05] MEDS: ONDANSETRON 4 MG/2 ML VIAL IV PRN ×2 (05:49→11:53)
[2022-02-05 06:09] LABS: Bilirubin Total 0.4 mg/dL (0.2-1.0); Protein, Total 5.6 g/dL (6.4-8.2)
[2022-02-05 06:15] LABS: Potassium 2.8 mmol/L (3.5-5.1)
[2022-02-05] MEDS ORDERED: KCL 20 MEQ/100 mL IVPB 20 MEQ/100 ML BAG IV SCH (08:00)
[2022-02-05] MEDS: PANTOPRAZOLE 40 MG INJ IVP SCH ×2 (08:45→21:04)
[2022-02-05] MEDS: D5 0.9 NS 1,000 ML IV SCH ×2 (08:54→15:00)
--- NOTE | 2022-02-05 12:59 | P.PN ---
Subjective Date of Service: 02/05/22 Chief Complaint: Perforated Gastric Ulcer Status post Tucker patch for perforated gastric ulcer day 4 Patient states feels much better today. She was started on ice chips yesterday. She denies any abdominal pain. No BM yet Physical Examination - Vital Signs Temperature: 97.4 F Blood Pressure: 146/61 Pulse: 70 Respirations: 18 Pulse Ox (%): 96 Assessment And Plan - Current Problems (Diagnosis) (1) Gastric ulcer with perforation Current Visit: Yes Status: Acute Qualifiers: Gastric ulcer chronicity: acute Qualified Code(s): K25.1 - Acute gastric ulcer with perforation (2) Peritonitis Current Visit: Yes Status: Acute (3) UTI (urinary tract infection) Current Visit: Yes Status: Acute Qualifiers: Urinary tract infection type: acute cystitis Hematuria presence: without hematuria Qualified Code(s): N30.00 - Acute cystitis without hematuria - Plan Physical Exam General: Alert, In no apparent distress, Oriented x3 HEENT: NG tube Respiratory: Clear to auscultation bilaterally, Normal air movement Cardiovascular: No edema, Regular rate/rhythm, Normal S1 S2 Gastrointestinal: Non-distended, Abdominal binder in place, normal bowel sounds. Musculoskeletal: No swelling Integumentary: No rashes, No cyanosis Neurological: Normal strength at 5/5 x4 extr Status post Tucker patch postop day 4. Continue antibiotics for possible peritonitis. Continue IV Protonix. IV hydromorphone for pain. No pathology obtained. May need to follow-up with GI as an outpatient for EGD and biopsy for Helicobacter testing. Check stool Helicobacter antigen once patient have a bowel movement Supportive measures-pain management as needed, antiemetics. Monitor and optimize electrolytes Continue IV hydration as patient is n.p.o. General surgery-Dr. Morrow considering feeding today. Increase activity as tolerated. Continue PT.
[2022-02-05] MEDS ORDERED: POTASSIUM CL 40 MEQ in NA CHLORIDE 0.9% 500 ML IV ONE (15:00)
[2022-02-06] MEDS: HYDROMORPHONE HCL 1 MG/ML INJ IV PRN ×8 (00:57→23:08)
[2022-02-06] MEDS: D5 0.9 NS 1,000 ML IV SCH ×2 (00:57→11:51)
[2022-02-06] MEDS: ONDANSETRON 4 MG/2 ML VIAL IV PRN ×2 (04:04→09:58)
[2022-02-06 06:13] LABS: Absolute Lymphocytes (CBC) 1.2 K/uL (0.7-4.9); Lymphocytes % 12.6 % (15.3-44.8); MCV 85.6 fL (80-100); MPV 7.8 fL (7.6-11.3); RBC Red Blood Cell Count 2.44 M/uL (3.86-4.86)
[2022-02-06 06:20] LABS: Magnesium 1.7 mg/dL (1.8-2.4)
[2022-02-06 06:23] LABS: Potassium 2.8 mmol/L (3.5-5.1)
[2022-02-06 06:27] LABS: Hematocrit 20.9 % (36.0-45.0)
[2022-02-06] MEDS: PIPER TAZO 3.375 GM in NA CHLORIDE 0.9% 100 ML IV SCH ×4 (06:58→20:19)
[2022-02-06] MEDS ORDERED: MAGNESIUM SULFATE 1 gm IVPB 1 GM/100 ML BAG IV ONE ×2 (07:24→13:00)
[2022-02-06] MEDS ORDERED: KCL 20 MEQ/100 mL IVPB 20 MEQ/100 ML BAG IV SCH (08:00)
[2022-02-06] MEDS: PANTOPRAZOLE 40 MG INJ IVP SCH ×2 (09:37→20:19)
--- NOTE | 2022-02-06 12:05 | P.PN ---
Subjective Date of Service: 02/06/22 Chief Complaint: Perforated Gastric Ulcer Status post Tucker patch for perforated gastric ulcer day 5. Patient states she continues to feel better. She has tolerated ice chips She denies any abdominal pain. She states that she has been passing flatus. No BM yet. Physical Examination - Vital Signs Temperature: 97.9 F Blood Pressure: 140/61 Pulse: 89 Respirations: 18 Pulse Ox (%): 91 Assessment And Plan - Current Problems (Diagnosis) (1) Gastric ulcer with perforation Current Visit: Yes Status: Acute Qualifiers: Gastric ulcer chronicity: acute Qualified Code(s): K25.1 - Acute gastric ulcer with perforation (2) Peritonitis Current Visit: Yes Status: Acute (3) UTI (urinary tract infection) Current Visit: Yes Status: Acute Qualifiers: Urinary tract infection type: acute cystitis Hematuria presence: without hematuria Qualified Code(s): N30.00 - Acute cystitis without hematuria - Plan Physical Exam General: Alert, In no apparent distress, Oriented x3 HEENT: NG tube Respiratory: Clear to auscultation bilaterally, Normal air movement Cardiovascular: No edema, Regular rate/rhythm, Normal S1 S2 Gastrointestinal: Non-distended, Abdominal binder in place, normal bowel sounds. Musculoskeletal: No swelling Integumentary: No rashes, No cyanosis Neurological: Normal strength at 5/5 x4 extr Status post Tucker patch postop day 5. No peritoneal signs. Discontinue antibiotics. Continue IV Protonix. IV hydromorphone for pain. No pathology obtained. May need to follow-up with GI as an outpatient for EGD and biopsy for Helicobacter testing. Check stool Helicobacter antigen once patient have a bowel movement Supportive measures-pain management as needed, antiemetics. Remove NG tube and start feeding-full liquid diet per surgery-Dr. Morrow. Monitor and optimize electrolytes DC IV fluid once patient tolerates feeding and has good oral intake. General surgery to follow. Increase activity as tolerated. Continue PT.
[2022-02-06] MEDS ORDERED: NA CHLORIDE 0.9% 250 ML ONE (12:16)
[2022-02-06] MEDS ORDERED: POTASSIUM CL 40 MEQ in NA CHLORIDE 0.9% 500 ML IV ONE (16:00)
[2022-02-06 19:39] LABS: Hematocrit 24.9 % (36.0-45.0)
[2022-02-06 20:39] VITALS: O2SAT 93
[2022-02-06] MEDS ORDERED: POTASSIUM 25 MEQ EFFERV TAB PO ONE (23:23)
[2022-02-07] MEDS: HYDROMORPHONE HCL 1 MG/ML INJ IV PRN ×3 (02:19→08:06)
[2022-02-07] MEDS: D5 0.9 NS 1,000 ML IV SCH ×2 (02:25→12:17)
[2022-02-07 04:06] LABS: Absolute Lymphocytes (CBC) 1.7 K/uL (0.7-4.9); Hematocrit 21.9 % (36.0-45.0); Lymphocytes % 16.1 % (15.3-44.8); MCV 84.4 fL (80-100); MPV 7.6 fL (7.6-11.3)
[2022-02-07 04:33] LABS: Magnesium 1.7 mg/dL (1.8-2.4); Potassium 3.4 mmol/L (3.5-5.1)
[2022-02-07] MEDS ORDERED: POTASSIUM 25 MEQ EFFERV TAB PO ONE (04:55)
[2022-02-07] MEDS ORDERED: MAGNESIUM SULFATE 1 gm IVPB 1 GM/100 ML BAG IV ONE (04:56)
[2022-02-07] MEDS: PIPER TAZO 3.375 GM in NA CHLORIDE 0.9% 100 ML IV SCH ×2 (05:05→13:26)
[2022-02-07] MEDS: PANTOPRAZOLE 40 MG INJ IVP SCH (08:03)
[2022-02-07] MEDS ORDERED: HYDROCODONE/APAP 5/325 MG TAB PO PRN (11:55)
[2022-02-07 12:18] VITALS: BP 147/57; TEMP 97.7
--- NOTE | 2022-02-07 12:37 | P.DS ---
Admission Date: 02/01/22 Discharge Date: 02/07/22 Disposition: DC HOME/HOME HEALTH CARE Discharge Condition: FAIR Reason for Admission: Perforated Gastric Ulcer - Problems (1) Gastric ulcer with perforation Current Visit: Yes Status: Acute Qualifiers: Gastric ulcer chronicity: acute Qualified Code(s): K25.1 - Acute gastric ulcer with perforation (2) Peritonitis Current Visit: Yes Status: Acute (3) UTI (urinary tract infection) Current Visit: Yes Status: Acute Qualifiers: Urinary tract infection type: acute cystitis Hematuria presence: without hematuria Qualified Code(s): N30.00 - Acute cystitis without hematuria Brief History of Present Illness: Patient is a 66 y/o F with DDD, bipolar, and fibromyalgia who presented to the ED with sudden onset of severe abdominal pain around about 1400 today. Symptoms associated with nausea and abdominal distension. Labs significant for WBC 11.8, lipase 1087, urine positive for UTI. CT abd/pelv showed "gastric antrum and duodenal bulb wall thickening and edema with free air, fluid and stranding in the adjacent fatty tissues, most likely a perforated ulcer of the bulb or antrum. No abscess or drainable fluid collection. Intrahepatic and extrahepatic biliary tree dilatation with the common bile duct up to 13 mm. This is an increased over 2019. No obstructing mass seen. Duct stones can be occult. This could also be the reservoir effect that occurs after a cholecystectomy." General surgery was contacted and took patient to surgery for emergent exploratory laparatomy. Hospital Course: Status post Tucker patch done by Dr. Morrow. Patient sent to the ICU for close postop monitoring She was treated with IV Zosyn for several days for possible peritonitis Also treated with IV Protonix No pathology obtained. May need to follow-up with GI as an outpatient for EGD and biopsy for Helicobacter testing. NG tube was removed and patient subsequently started on full liquid diet which she tolerated. Her pain also improved Patient seen by PT and currently ambulating with a walker Dr. Morrow reviewed and patient deemed stable for discharge. Patient discharged to continue PT with home health. Vital Signs/Physical Exam: Temp Pulse Resp BP Pulse Ox 97.7 F 84 16 147/57 H 93 02/07/22 11:00 02/07/22 11:00 02/07/22 11:00 02/07/22 11:02/07/22 11:00 General: Alert, In no apparent distress, Oriented x3 HEENT: Mucous membr. moist/pink Neck: JVD not distended Respiratory: Clear to auscultation bilaterally, Normal air movement Cardiovascular: No edema, Regular rate/rhythm, Normal S1 S2 Gastrointestinal: Normal bowel sounds, Soft and benign, Non-distended Musculoskeletal: No swelling Neurological: Normal speech, Normal strength at 5/5 x4 extr Laboratory Data at Discharge: WBC 10.8 K/uL (4.3-10.9) 02/07/22 03:48 Hgb 7.6 g/dL (12.0-15.0) L 02/07/22 03:48 Hct 21.9 % (36.0-45.0) L 02/07/22 03:48 Plt Count 268 K/uL (152-406) 02/07/22 03:48 Sodium 139 mmol/L (136-145) 02/07/22 03:48 Potassium 3.6 mmol/L (3.5-5.1) 02/07/22 11:30 BUN 8 mg/dL (7-18) 02/07/22 03:48 Creatinine 0.53 mg/dL (0.55-1.3) L 02/07/22 03:48 Glucose 118 mg/dL (74-106) H 02/07/22 03:48 Phosphorus 1.8 mg/dL (2.5-4.9) L 02/02/22 04:20 Magnesium 1.7 mg/dL (1.8-2.4) L 02/07/22 03:48 Total Bilirubin 0.4 mg/dL (0.2-1.0) 02/05/22 05:10 AST 14 U/L (15-37) L 02/05/22 05:10 ALT 26 U/L (12-78) 02/05/22 05:10 Alkaline Phosphatase 106 U/L (45-117) 02/05/22 05:10 Lipase 1087 U/L (73-393) H 02/01/22 18:45 Home Medications: Buspirone HCl [Buspar] 15 mg PO Q6HR 08/18/14 Hydrocodone/Acetaminophen [Hydrocodon-Acetaminophn 10-325] 10 - 325 mg PO Q6HR 08/18/14 Lurasidone HCl [Latuda] 120 mg PO DAILY 08/18/14 OXcarbazepine [Trileptal] 600 mg PO BID 08/18/14 SUMAtriptan succinate [Sumatriptan Succinate] 100 mg PO BID PRN 07/25/16 Ranitidine [Zantac*] 150 mg PO BID PRN MDD 300mg 02/02/22 Pantoprazole [Protonix Tab] 40 mg PO BID #60 tab 02/07/22 New Medications: Pantoprazole [Protonix Tab] 40 mg PO BID #60 tab Followup: Unknown,U [Primary Care Provider] - Time spent managing pt's care (in minutes): 40
== END 2022-02-07 15:32 | disposition home health service (06) | DRG 326 ==
LOC: ER 15:06 → ERHOLD 21:05 → 3RD-ICU 23:47 → 2ND 02-03 21:28
PROVIDERS: ADMIT Internal Medicine; ATTEND Internal Medicine
PROC: 0DU707Z Supplement Stomach, Pylorus with Autologous Tissue Substitute, Open Approach (ICD-10-PCS; 2022-02-02)
PROC: 0WJG0ZZ Inspection of Peritoneal Cavity, Open Approach (ICD-10-PCS; 2022-02-02)
PROC: 30233N1 Transfusion of Nonautologous Red Blood Cells into Peripheral Vein, Percutaneous Approach (ICD-10-PCS; principal; 2022-02-06)
DX: K25.1 Acute gastric ulcer with perforation (principal); K65.9 Peritonitis, unspecified; N30.00 Acute cystitis without hematuria; D62 Acute posthemorrhagic anemia; R74.8 Abnormal levels of other serum enzymes; F31.9 Bipolar disorder, unspecified; M79.7 Fibromyalgia; Z98.84 Bariatric surgery status; Z20.822 Contact with and (suspected) exposure to COVID-19
CPT/HCPCS: 36415; 74018; 74177; 80048; 80053; 81003; 82947; 83690; 83735; 84100; 84132; 85014; 85018; 85025; 86850; 86900; 86901; 87811; 94010; 97110; 97116; 97161; 97530; 99251; 99284; C9113; J0330; J1100; J1170; J2370; J2405; J2543; J2704; J3010; J3475; J3480; J7030; J7040; J7042; J7050; J7120; P9016; Q9967

== ENCOUNTER 2022-03-01 11:37 | Observation (INO) | payer OTHER ==
--- OUTSIDE RECORDS SUMMARY | 2022-03-01 11:48 | XMS REPORT | Continuity of Care Document ---
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 42 Fluconazole 0 Yes 1{tbl} Take 1 Ke lsey 40 MG/ML 9-23 tablet by Seybol d oral Recon 15:04: mouth Susp 42 Amoxicillin Yes Mayra 500 MG oral 9-20 Seybold Capsule 00:00: 00 Amoxicillin 0 Yes Mayra 500 MG oral 9-20 Seybold Capsule 00:00: 00 Amoxicillin 2020-0 Yes Mayra 500 MG oral 9-20 Seybold Capsule 00:00: 00 Amoxicillin 2020-0 Yes Mayra 500 MG oral 9-20 Seybold Capsule 00:00: 00 Amoxicillin 2020-0 Yes Mayra 500 MG oral 9-20 Seybold Capsule 00:00: 00 HYDROcodone 0 Yes 2{tbl} Q6H Take 2 Ke lsey -Acetaminop 9-03 tablets by Se ybold bari ([place]) 00:00: mouth 10-325 MG 00 every 6 oral Tablet hours as needed for pain For chronic pain secondary to fibromyalg ia Ondansetron 2021-0 Yes TAKE ONE Ke lsey HCl 4 MG 8-18 TABLET BY Seybol d oral Tablet 00:00: MOUTH 00 EVERY 8 HOURS NEEDED FOR NAUSEA Temazepam Yes Tali 1-2 Memor ia 8-03 Marek capsules l 02:45: at bedtime [place] 37 as needed Rizatriptan Yes TAKE ONE Ke lsey Benzoate 10 8-01 TABLET BY Sey bold MG oral 00:00: MOUTH AT Tablet 00 ONSET OF HEADACHE; MAY REPEAT ONE TABLET IN 2 HOURS IF NEEDED. Tizanidine Yes Tali 2 tablets Memoria HCl 7-31 Marek at bedtime l 02:45: Félix 18 Metronidazo Yes Tali TAKE 1 M emoria le 7- Marek TABLET BY l 02:45: MOUTH [place] 18 EVERY 6 HOURS FOR 10 DAYS Ondansetron Yes Tali not Mem oria HCl 7- Marek defined l 02:45: [place] 18 Rizatriptan Yes Tali 1 tablet Memoria Benzoate 7- Marek l 02:45: [place] 18 Sumatriptan Yes Tali 1 tablet Memoria Succinate 7- Marek at least 2 l 02:45: hours [place] 18 between doses as needed Latuda Yes Tali 1 tablet Shekhar clarice - Marek with food l 02:45: Félix 18 Hydrocodone Yes Tali 2 tablets Memoria -Acetaminop 7- Marek as needed l hen 02:45: Félix 18 Temazepam Yes Tali 1 capsule Memoria 7-31 Marek at bedtime l 02:45: as needed [place] 18 potassium Yes Tali not Memor ia 7-31 Marek defined l 02:45: Félix 18 Pantoprazol Yes Tali 1 tablet Memoria e 7-31 Marek l 02:45: Félix 18 Fluconazole Yes Tali 1 tablet Memoria 7-31 Marek l 02:45: [place] 18 Metronidazo Yes Tali 1 tablet Memoria le 7-31 Marek l 02:45: Félix 18 Oxybutynin Yes [...] Mesylate 5-06 Marek at bedtime l 02:45: [place] 33 lurasidone Yes 120mg QD Take [address] [facility] [address] [facility] (Latuda) 5-01 mg by Avni 120 mg Tab 14:17: mouth Medica l 48 daily. [place] docusate 2020- No 100mg Q.5D Take 1 [facility]- [facility]-[address] [facility] (COLACE) 00:00: 23:59 (100 mg Medic al 100 MG 00 :00 total) by [place] capsule mouth 2 (two) times daily for 10 days. amoxicillin 2020- No 1{tbl} Q.5D Take [address] -clavulanat 5- 05-07 tablet by Frank shaunna e 00:00: 23:59 mouth 2 Medical (AUGMENTIN) 00 :00 (two) Center 875-125 mg times per tablet daily for 6 days. LORazepam 2020- No 1mg Take [address] [facility] [address] [facility] (ATIVAN) 1 4-24 04-24 by mouth. Cleve es MG tablet 12:35: 00:00 Medical 45 :00 [place] ciprofloxac 2020- No 500mg Take [address] [facility] in HCl 4-23 04-23 mg by Avni (CIPRO) 500 20:58: 00:00 mouth. Med ical MG tablet 58 :00 [place] lurasidone 2020- No Take by [facility] (LATUDA) 40 4-23 04-23 [facility]. [facility] mg Tab 20:58: 00:00 Medical 58 :00 Center oxybutynin 2020-0 Yes 10mg QD Take [address] (DITROPAN-X 4-21 by mouth Luke s L) 10 MG 24 00:00: daily . Med ical hr tablet 00 Center temazepam 2020-0 Yes 15mg Take [address] [facility] [address] [facility] (RESTORIL) 4-06 by mouth [facility] 15 mg 00:00: every Medical capsule 00 night as Center needed . BusPIRone 0 Yes Robinson 1 tablet Shekhar clarice HCl 4-01 Lidasan l 02:48: Félix 48 Tizanidine 2020-0 Yes TAKE TWO Matt [...] Tablet 00:00: MOUTH AT 00 BEDTIME busPIRone 2020- No [address] [facility] (BUSPAR) 15 4-24 [facility] MG tablet 00:00: 00:00 Medical 00 :00 [place] Latuda 120 2020- No 120mg QD [address] [facility] mg Tab 324 daily . [facility] 00:00: 00:00 Medical 00 :00 [place] Sumatriptan Yes TAKE ONE Ke lsey Succinate 2-24 TABLET BY Seybo ld 100 MG oral 00:00: MOUTH AT Tablet 00 ONSET OF HEADACHE; MAY REPEAT ONE TABLET IN 2 HOURS IF NEEDED. ( MAX OF 2 TABLET IN 24 HOURS) benztropine 2020- No [facility] (COGENTIN[facility] 224 [facility] 1 MG tablet 00:00: 00:00 Medic al 00 :00 [place] pantoprazol 2020- No [facility] (PROTONIX) 00:00: 00:00 Medica l 40 MG 00 :00 [place] tablet Trazodone Yes Sharifa 1 tablet Me moria HCl 1-19 Walker at bedtime l 03:45: as needed [place] 16 Lorazepam Yes Sharifa 1 tablet Me moria 1-19 Walker as needed l 03:45: [place] 16 Trazodone 2019-07 Yes 1{tbl} Take 1 Inga [...] mouth at 00 bedtime Trazodone 2019-07 Yes Robinson 1 tablet Shekhar clarice HCl 2-23 Lidasan at bedtime l 00:00: Félix 00 Temazepam 2019-07 Yes Sharifa 1 capsule M emoria 1-05 Walker at bedtime l 00:00: as needed [place] 00 ondansetron Yes TAKE ONE [facility] (ZOFRAN) 4 9-30 TABLET BY Luke s MG tablet 00:00: MOUTH Medical 00 EVERY 8 Center HOURS NEEDED FOR NAUSEA Midodrine Yes [id number] 2.5mg Take 1 K elsey HCl 2.5 MG 9-22 tablet Seybold oral Tab 00:00: (2.5 mg 00 total) by mouth daily Midodrine Yes [id number] 2.5mg Take 1 K elsey HCl 2.5 MG 9-22 tablet Seybold oral Tab 00:00: (2.5 mg 00 total) by mouth daily Midodrine Yes [id number] 2.5mg Take 1 K elsey HCl 2.5 MG 9-22 tablet Seybold oral Tab 00:00: (2.5 mg 00 total) by mouth daily Midodrine Yes [id number] 2.5mg Take 1 K elsey HCl 2.5 MG 9-22 tablet Seybold oral Tab 00:00: (2.5 mg 00 total) by mouth daily Midodrine Yes [id number] 2.5mg Take 1 K elsey HCl 2.5 MG 9-22 tablet Seybold oral Tab 00:00: (2.5 mg 00 total) by mouth daily Midodrine Yes [id number] 2.5mg Take 1 K elsey HCl 2.5 MG 9-22 tablet Seybold oral Tab 00:00: (2.5 mg 00 total) by mouth daily Midodrine Yes [id number] 2.5mg Take 1 K elsey HCl 2.5 MG 9-22 tablet Seybold oral Tab 00:00: (2.5 mg 00 total) by mouth daily Midodrine Yes [id number] 2.5mg Take 1 K elsey HCl 2.5 MG 9-22 tablet Seybold oral Tab 00:00: (2.5 mg 00 total) by mouth daily Midodrine Yes [id number] 2.5mg Take 1 K elsey HCl 2.5 MG 9-22 tablet Seybold oral Tab 00:00: (2.5 mg 00 total) by mouth daily Midodrine 2021- No [id number] 2.5mg Take 1 Mayra HCl 2.5 MG 9-22 06-03 tablet Seybol d oral Tab 00:00: 00:00 (2.5 mg 00 :00 total) by mouth daily midodrine 2020- No 2.5mg Take 2.[address] [facility] [address] [facility] (PROAMATINE 9-22 04-24 mg by [facility] ) 2.5 MG 00:00: 00:00 mouth. Medica l tablet 00 :00 Center Lorazepam 2019-0 Yes Lola 1 tablet M emoria 02-25 Lopez as needed l 02:45: [place]ann[place] 46 Hydrocodone 2019-0 Yes Lola 2 tablets Memoria -Acetaminop 02-25 Lopez as needed l hen 02:45: Félix 46 Mirtazapine 2019-0 Yes Lola 1/2-1 Me moria 02-24 Lopez tablet at l 02:46: bedtime Félix 28 Sumatriptan 2019-0 Yes Lola not Mem oria Succinate 02-24 Lopez defined l 02:46: Félix 28 Rizatriptan 2020-0 Yes Lola not Mem oria Benzoate 8-18 Lopez defined l 02:46: [place] Topiramate 2020-0 Yes Lola not Shekhar clarice 8-18 Lopez defined l 02:46: [place] 28 Promethazin 2020-0 Yes Lola 1 tablet Memoria e HCl 8-18 Lopez l 02:46: Félix Trazodone 2020-0 Yes Lola 1-3 Memor ia HCl 8-18 Lopez tablets at l 02:46: bedtime as [place] 27 needed BusPIRone 2020-0 Yes Lola 1 tablet M emoria HCl 8-18 Lopez l 02:46: [place] Benztropine 2020-0 Yes Lola 1 tablet Memoria Mesylate 7-20 Lopez at bedtime l 00:00: [place] Trazodone 2020-0 Yes Lola 1-3 Memor ia HCl 3-02 Lopez tablets at l 00:00: bedtime as [place] 00 needed Cholecalcif 2019-0 Yes [id number] 2000U Take 1 Mayra domenic 6-18 tablet Seybold (VITAMIN D) 00:00: (2,000 2000 units 00 units oral Tab total) by mouth daily Cholecalcif 2019-0 Yes [id number] 2000U Take 1 Mayra domenic 6-18 tablet Seybold (VITAMIN D) 00:00: (2,000 2000 units 00 units oral Tab total) by mouth daily Cholecalcif 2019-0 Yes [id number] 2000U Take 1 Mayra domenic 6-18 tablet Seybold (VITAMIN D) 00:00: (2,000 2000 units 00 units oral Tab total) by mouth daily Cholecalcif 2019-0 Yes [id number] 2000U Take 1 Mayra domenic 6-18 tablet Seybold (VITAMIN D) 00:00: (2,000 2000 units 00 units oral Tab total) by mouth daily Cholecalcif 2019-0 Yes [id number] 2000U Take 1 Mayra domenic 6-18 tablet Seybold (VITAMIN D) 00:00: (2,000 2000 units 00 units oral Tab total) by mouth daily Cholecalcif 2019-0 Yes [id number] 2000U Take 1 Mayra domenic 6-18 tablet Seybold (VITAMIN D) 00:00: (2,000 2000 units 00 units oral Tab total) by mouth daily Cholecalcif Yes [id number] 2000U Take 1 Mayra domenic 6-18 tablet Seybold (VITAMIN D) 00:00: (2,000 2000 units 00 units oral Tab total) by mouth daily Cholecalcif Yes [id number] 2000U Take 1 Mayra domenic 6-18 tablet Seybold (VITAMIN D) 00:00: (2,000 2000 units 00 units oral Tab total) by mouth daily Cholecalcif Yes [id number] 2000U Take 1 Mayra domenic 6-18 tablet Seybold (VITAMIN D) 00:00: (2,000 2000 units 00 units oral Tab total) by mouth daily Cholecalcif Yes [id number] 2000U Take 1 Mayra domenic 6-18 tablet Seybold (VITAMIN D) 00:00: (2,000 2000 units 00 units oral Tab total) by mouth daily ondansetron 2020- No 4mg Take [address] [facility] (ZOFRAN-ODT 07-25 tablet (4 Frank kes ) 4 MG 00:00: 00:00 mg total) Medic al disintegrat 00 :00 by mouth Cent er ing tablet every 4 (four) hours as needed for Nausea for up to 10 doses. metroNIDAZO 2020- No TAKE [address] [facility] LE (FLAGYL) 07-19 TABLET BY Frank maza 500 MG 00:00: 00:00 MOUTH Medical tablet 00 :00 EVERY 6 Center HOURS FOR 10 DAYS promethazin 2020- No UNWRAP AND [facility] 07-19 [facility] (PHENERGAN) 00:00: 00:00 RECTALLY 1 Medical 25 MG 00 :00 SUPPOSITOR Center suppository Y EVERY 6 HOURS HYDROcodone 2017-07 Yes pain 2{tbl} Take [address] [facility] -acetaminop 2-24 tablets by Frank maza hen (NORCO) 00:00: mouth Medic al 10-325 mg 00 every 6 Center per tablet (six) hours as needed . tiZANidine 2017-07- No TAKE TWO [facility] (ZANAFLEX) 2-17 04-24 TABLETS BY Frank maza 4 MG tablet 00:00: 00:00 MOUTH Medi gabrielle 00 :00 EVERY Center NIGHT AT BEDTIME rizatriptan 2017- Yes 10mg Take [address] [facility] (MAXALT) 10 5-15 by mouth . Frank kes MG tablet 00:00: Medical 00 Center SUMAtriptan Yes 100mg Take [address] (IMITREX) 5-15 mg by [facility] 100 MG 00:00: mouth . Medical tablet 00 Center Glucose Yes [id number] Use as Mayra Blood (ONE 02-03 instructed Sey bold TOUCH ULTRA 00:00: 1 time TEST) in daily vitro Strip Glucose Yes [id number] Use as Mayra Blood (ONE 02-03 instructed Sey bold TOUCH ULTRA 00:00: 1 time TEST) in daily vitro Strip Glucose Yes [id number] Use as Mayra Blood (ONE 02-03 instructed Sey bold TOUCH ULTRA 00:00: 1 time TEST) in daily vitro Strip Glucose Yes [id number] Use as Mayra Blood (ONE 02-03 instructed Sey bold TOUCH ULTRA 00:00: 1 time TEST) in daily vitro Strip Glucose Yes [id number] Use as Mayra Blood (ONE 02-03 instructed Sey bold TOUCH ULTRA 00:00: 1 time TEST) in daily vitro Strip Glucose Yes [id number] Use as Mayra Blood (ONE 02-03 instructed Sey bold TOUCH ULTRA 00:00: 1 time TEST) in daily vitro Strip Glucose Yes [id number] Use as Mayra Blood (ONE 02-03 instructed Sey bold TOUCH ULTRA 00:00: 1 time TEST) in daily vitro Strip Glucose Yes [id number] Use as Mayra Blood (ONE 02-03 instructed Sey bold TOUCH ULTRA 00:00: 1 time TEST) in daily vitro Strip Glucose Yes [id number] Use as Mayra Blood (ONE 02-03 instructed Sey bold TOUCH ULTRA 00:00: 1 time TEST) in daily vitro Strip Glucose Yes [id number] Use as Mayra Blood (ONE 02-03 instructed Sey bold TOUCH ULTRA 00:00: 1 time TEST) in daily vitro Strip ONE TOUCH Yes [id number] Use as Inga ey ULTRASOFT 5-22 instructed Seyb old LANCETS 00:00: 3 times d does not 00 aily apply Misc ONE TOUCH Yes [id number] Use as Inga ey ULTRASOFT 5-22 instructed Seyb old LANCETS 00:00: 3 times d does not 00 aily apply Misc ONE TOUCH Yes [id number] Use as Inga ey ULTRASOFT 5-22 instructed Seyb old LANCETS 00:00: 3 times d does not 00 aily apply Misc ONE TOUCH Yes [id number] Use as Inga ey ULTRASOFT 5-22 instructed Seyb old LANCETS 00:00: 3 times d does not 00 aily apply Misc ONE TOUCH Yes [id number] Use as Inga ey ULTRASOFT 5-22 instructed Seyb old LANCETS 00:00: 3 times d does not 00 aily apply Misc ONE TOUCH Yes [id number] Use as Inga ey ULTRASOFT 5-22 instructed Seyb old LANCETS 00:00: 3 times d does not 00 aily apply Misc ONE TOUCH Yes [id number] Use as Inga ey ULTRASOFT 5-22 instructed Seyb old LANCETS 00:00: 3 times d does not 00 aily apply Misc ONE TOUCH Yes [id number] Use as Inga ey ULTRASOFT 5-22 instructed Seyb old LANCETS 00:00: 3 times d does not 00 aily apply Misc ONE TOUCH Yes [id number] Use as Inga ey ULTRASOFT 5-22 instructed Seyb old LANCETS 00:00: 3 times d does not 00 aily apply Misc ONE TOUCH Yes [id number] Use as Inga ey ULTRASOFT 5-22 instructed Seyb old LANCETS 00:00: 3 times d does not 00 aily apply Misc Immunizations Ordered Immunization Filled Immunization Date Status Commen ts Source Name Name Influenza Virus 2021-05-12 Completed Mayra bobbyold Vaccine, Quadrivalent, 00:00:00 High Dose, Age 65 And Up Influenza Virus 2021-05-12 Completed Mayra bobbyold Vaccine, Quadrivalent, 00:00:00 High Dose, Age 65 And Up Influenza Virus 2021-05-12 Completed Mayra Doe ybold Vaccine, Quadrivalent, 00:00:00 High Dose, Age 65 And Up Influenza Virus 2021-05-12 Completed Mayra bobbyold Vaccine, Quadrivalent, 00:00:00 High Dose, Age 65 [...] Polysaccharide 00:00:00 Shingles IM (Shingrix) 2020-12-01 Completed Paolo hernandezbetty Seybold 00:00:00 Pneumococcal Vaccine, 2020-12-01 Completed Matt arciniega Seybold Polysaccharide 00:00:00 Shingles IM (Shingrix) 2020-12-01 Completed Paolo hernandezbetty Seybold 00:00:00 Covid-19 Vaccine 2020-10-08 Completed Mayra chaudhryld (Moderna), Mrna-lnp, 00:00:00 Spencer Protein, Pf, 100 Mcg/0.5ml,IM Covid-19 Vaccine 2020-10-08 Completed Mayra Lindo eybold (Moderna), Mrna-lnp, 00:00:00 Spencer Protein, Pf, 100 Mcg/0.5ml,IM Covid-19 Vaccine 2020-10-08 Completed Mayra Lindo eybold (Moderna), Mrna-lnp, 00:00:00 Spencer Protein, Pf, 100 Mcg/0.5ml,IM Covid-19 Vaccine 2020-10-08 Completed Mayra chaudhryld (Moderna), Mrna-lnp, 00:00:00 Spencer Protein, Pf, 100 Mcg/0.5ml,IM Covid-19 Vaccine 2020-10-08 Completed Mayra chaudhryld (Moderna), Mrna-lnp, 00:00:00 Spencer Protein, Pf, 100 Mcg/0.5ml,IM Covid-19 Vaccine 2020-10-08 Completed Mayra luna Moderna (Spikevax), 00:00:00 Mrna-lnp, Spencer Protein, Pf Covid-19 Vaccine 2020-10-08 Completed Mayra chaudhryld Moderna (Spikevax), 00:00:00 Mrna-lnp, Spencer Protein, Pf Covid-19 Vaccine 2020-10-08 Completed Mayra luna Moderna (Spikevax), 00:00:00 Mrna-lnp, Spencer Protein, Pf Covid-19 Vaccine 2020-10-08 Completed Mayra Lindo eybold Moderna (Spikevax), 00:00:00 Mrna-lnp, Spencer Protein, Pf Covid-19 Vaccine 2020-10-08 Completed Mayra luna Moderna (Spikevax), 00:00:00 Mrna-lnp, Spencer Protein, Pf Covid-19 Vaccine 2020-09-10 Completed Mayra hernándezbold (Moderna), Mrna-lnp, 00:00:00 Spencer Protein, Pf, 100 Mcg/0.5ml,IM Covid-19 Vaccine 2020-09-10 Completed Mayra Lindo eybold (Moderna), Mrna-lnp, 00:00:00 Spencer Protein, Pf, 100 Mcg/0.5ml,IM Covid-19 Vaccine 2020-09-10 Completed Mayra hernándezbold (Moderna), Mrna-lnp, 00:00:00 Spencer Protein, Pf, 100 Mcg/0.5ml,IM Covid-19 Vaccine 2020-09-10 Completed Mayra hernándezbold (Moderna), Mrna-lnp, 00:00:00 Spencer Protein, Pf, 100 Mcg/0.5ml,IM Covid-19 Vaccine 2020-09-10 Completed Mayra hernándezbold (Moderna), Mrna-lnp, 00:00:00 Spencer Protein, Pf, 100 Mcg/0.5ml,IM Covid-19 Vaccine 2020-09-10 Completed Mayra hernándezbold Moderna (Spikevax), 00:00:00 Mrna-lnp, Spencer Protein, Pf Covid-19 Vaccine 2020-09-10 Completed Mayra hernándezbold Moderna (Spikevax), 00:00:00 Mrna-lnp, Spencer Protein, Pf Covid-19 Vaccine 2020-09-10 Completed Mayra luna Moderna (Spikevax), 00:00:00 Mrna-lnp, Spencer Protein, Pf Covid-19 Vaccine 2020-09-10 Completed Mayra hernándezbold Moderna (Spikevax), 00:00:00 Mrna-lnp, Spencer Protein, Pf Covid-19 Vaccine 2020-09-10 Completed Mayra Lindo eybold Moderna (Spikevax), 00:00:00 Mrna-lnp, Spencer Protein, Pf Influenza Virus 2020-03-17 Completed Mayra Doe ybold Vaccine, Quadrivalent, 00:00:00 [...] 00:00:00 and up Influenza Virus 2016-04-29 Completed Mayar Se ybold Vaccine, age 6 months 00:00:00 [...] Adacel) 00:00:00 Tdap- (Boostrix, 2015-02-10 Completed Mayra Lindo bettybold Adacel) 00:00:00 Influenza Virus 2014-04-30 Completed Mayra [...] pressure Diastolic blood 2021-12-10 16:41:00 68 mm[Hg] Kelse y Seybold pressure Heart rate 2021-12-10 16:41:00 60 /min Mayra S eybold Respiratory rate 2021-12-10 16:41:00 16 /min Inga [...] Body weight 2021-11-18 18:57:00 91.173 kg Mayra Lindo eybold BMI 2021-11-18 18:57:00 32.44 kg/m2 Mayra [...] Body height 2021-04-01 19:59:00 167.6 cm Mayra S eybold Body weight 2021-04-01 19:59:00 74.798 kg Mayra S eybold BMI 2021-04-01 19:59:00 26.62 kg/m2 Mayra S eybold Oxygen saturation in 2021-04-01 19:59:00 98 /min Mayra Seybold Arterial blood by Pulse oximetry WEIGHT 2020-11-04 05:16:00 75.07 kg WEIGHT 2020-11-03 04:46:00 75.025 kg WEIGHT 2020-10-31 13:23:00 72.576 kg HEIGHT 2020-10-31 13:23:00 167.6 cm WEIGHT 2020-10-30 21:03:00 72.576 kg WEIGHT 2020-11-04 05:16:00 75.07 kg WEIGHT 2020-11-03 04:46:00 75.025 kg WEIGHT 2020-10-31 13:23:00 72.576 kg HEIGHT 2020-10-31 13:23:00 167.6 cm WEIGHT 2020-10-30 21:03:00 72.576 kg Weight 2021-02-05 13:45:00 [facility] Height 2021-02-05 13:45:00 [facility] [place] Weight 2020-12-11 14:20:00 [facility] [place] Height 2020-12-11 14:20:00 [facility] Weight 2020-11-11 14:00:00 [facility] Height 2020-11-11 14:00:00 [facility] Systolic blood 2020-11-07 11:17:00 131 mm[Hg] [facility] Diastolic blood 2020-11-07 11:17:00 60 mm[Hg] [facility] Heart rate 2020-11-07 11:17:00 81 /min [facility] Body temperature 2020-11-07 11:17:00 36.61 April [facility] Respiratory rate 2020-11-07 11:17:00 18 /min [facility] Oxygen saturation in 2020-11-07 11:17:00 96 /min [facility] Arterial blood by Medical Ce nter Pulse oximetry Body weight 2020-11-04 05:16:00 75.07 kg [facility] BMI 2020-11-04 05:16:00 26.71 kg/m2 [facility] Body height 2020-10-31 13:23:00 167.6 cm [facility] Weight 2020-10-12 19:30:00 [facility] Height 2020-10-12 19:30:00 [facility] Weight 2020-09-09 19:00:00 [facility] Félix Weight 2020-08-12 20:30:00 [facility] Weight 2020-07-01 21:00:00 [facility] F[facility] Weight 2020-06-09 15:45:00 [facility] [place] Weight 2020-05-14 16:30:00 [facility] F[facility] Weight 2020-04-21 16:30:00 [facility] [place] Weight 2020-02-25 16:00:00 [facility] Weight 2020-01-27 15:30:00 [facility] Weight 2019-12-30 14:45:00 [facility] Félix Weight 2019-12-06 14:30:00 [facility] [place] Weight 2019-11-06 16:30:00 [facility] [place] Height 2019-11-06 16:30:00 [facility] Fél[facility] Weight 2019-07-16 19:45:00 [facility] [place] Height 2019-07-16 19:45:00 [facility] Heart Rate 2019-07-16 19:45:00 [facility] Diastolic (mm Hg) 2019-07-16 19:45:00 Mem orial [place] Systolic (mm Hg) 2019-07-16 19:45:00 Shekhar rial Félix Weight 2019-06-10 20:00:00 [facility] Height 2019-06-10 20:00:00 [facility] Heart Rate 2019-06-10 20:00:00 [facility] [place] Diastolic (mm Hg) 2019-06-10 20:00:00 Mem orial Félix Systolic (mm Hg) 2019-06-10 20:00:00 Shekhar rial Félix Procedures Procedure Date / Time Performing Clinician Source Performed POCT-GLUCOSE METER 2020-11-07 11:18:00 Blanco Hickman [facility] POCT-GLUCOSE METER 2020-11-07 07:06:00 Blanco Hickman [facility] SARS-COV2/RT-PCR ([facility] & 2020-11-07 04:40:00 Rustam Garcia [facility] POCT-GLUCOSE METER 2020-11-06 21:03:00 Blanco Hickman [facility] POCT-GLUCOSE METER 2020-11-06 16:32:00 Blanco Hickman [facility] POCT-GLUCOSE METER 2020-11-06 11:19:00 Blanco Hickman [facility] POCT-GLUCOSE METER 2020-11-06 07:54:00 Blanco Hickman [facility] POCT-GLUCOSE METER 2020-11-05 23:44:00 Blanco Hickman [facility] POCT-GLUCOSE METER 2020-11-05 18:58:00 Blanco Hickman [facility] ECG 12-LEAD 2020-11-05 13:58:01 Blanco Hickman [facility] POCT-GLUCOSE METER 2020-11-05 11:47:00 Blanco Hickman [facility] POCT-GLUCOSE METER 2020-11-05 05:57:00 Marylou Blanco [facility] BASIC METABOLIC PANEL (7) 2020-11-05 05:42:00 Blanco Hickman [facility] MAGNESIUM 2020-11-05 05:42:00 Blanco Hickman [facility] PHOSPHORUS 2020-11-05 05:42:00 Blanco Hickman [facility] POCT-GLUCOSE METER 2020-11-05 00:33:00 Blanco Hickman [facility] POCT-GLUCOSE METER 2020-11-04 18:20:00 Blanco Hickman [facility] ANAEROBIC CULTURE 2020-11-04 16:19:16 Sarahi [facility] AFB CULTURE + SMEAR 2020-11-04 16:19:16 Sarahi [facility] (NON-SPUTUM) [facility] FUNGUS CULTURE + SMEAR 2020-11-04 16:19:16 Sarahi [facility] SURGICALLY OBTAINED 2020-11-04 16:19:16 Sarahi [facility] CULTURE + GRAM STAIN Medical [facility] ter SPIN/CONCENTRATION CHARGE 2020-11-04 16:19:00 Asad Mcclain [facility] I&D,ABSCESS ABDOMINAL 2020-11-04 15:30:00 Sarahi [facility] POCT-GLUCOSE METER 2020-11-04 11:29:00 Blanco Hickman [facility] POCT-GLUCOSE METER 2020-11-04 05:59:00 Blanco Hickman [facility] BASIC METABOLIC PANEL (7) 2020-11-04 04:17:00 Blanco Hickman [facility] MAGNESIUM 2020-11-04 04:17:00 Blanco Hickman [facility] PHOSPHORUS 2020-11-04 04:17:00 Blanco Hickman [facility] ABORH, MANUAL 2020-11-04 00:41:00 Genet Seaman [facility] POCT-GLUCOSE METER 2020-11-03 23:41:00 Blanco Hickman [facility] TYPE AND SCREEN, AUTOMATED 2020-11-03 20:06:00 Cristi Calloway [facility] POCT-GLUCOSE METER 2020-11-03 18:03:00 Blanco Hickman [facility] POCT-GLUCOSE METER 2020-11-03 11:20:00 Blanco Hickman [facility] POCT-GLUCOSE METER 2020-11-03 05:47:00 Blanco Hickman [facility] CBC W/PLT COUNT & AUTO 2020-11-03 05:04:00 Blanco Hickman [facility] CBC W/PLT COUNT & AUTO 2020-11-03 05:04:00 Blanco Hickman [facility] BASIC METABOLIC PANEL (7) 2020-11-03 05:03:00 Blanco Hickman [facility] MAGNESIUM 2020-11-03 05:03:00 Blanco Hickman [facility] PHOSPHORUS 2020-11-03 05:03:00 Blanco Hickman [facility] TRIGLYCERIDES 2020-11-03 05:03:00 Blanco Hickman [facility] POCT-GLUCOSE METER 2020-11-02 23:41:00 Blanco Hickman [facility] C. DIFFICILE GDH TOXIN 2020-11-02 20:23:00 Amanda Paredes [facility] POCT-GLUCOSE METER 2020-11-02 15:48:00 Blanco Hickman [facility] POCT-GLUCOSE METER 2020-11-02 11:24:00 Blanco Hickman [facility] POCT-GLUCOSE METER 2020-11-02 06:01:00 Jose Santoyo [facility] CBC W/PLT COUNT & AUTO 2020-11-02 05:04[facility] (7[facility] 2020-11-02 05:04:00 Liza Santoyo sa [facility] CBC W/PLT COUNT & AUTO 2020-11-02 05:04:00 [facility] ([facility]LL[facility]UAL DIFF) 2020-11-02 05:04:00 Liza Santoyo sa [facility] POCT-GLUCOSE METER 2020-11-01 20:13:00 Natanael Ranken [facility] XR CHEST 1 VIEW PORTABLE / 2020-11-01 12:14:[address] [facility] BASIC METABOLIC PANEL (7) 2020-11-01 05:44:00 Liza Santoyo sa [facility] HEPATIC FUNCTION PANEL 2020-11-01 05:44:00 Jose Santoyo [facility] CBC W/PLT COUNT & AUTO 2020-11-01 05:44:00 Jose Santoyo [facility] CBC W/PLT COUNT & AUTO 2020-11-01 05:44:00 Jose Santoyo [facility] CT ABDOMEN/PELVIS WITH IV 2020-10-30 23:06:00 Rustam Garcia [facility] SARS-COV2/RT-PCR ([facility] & 2020-10-30 22:10:[address] [facility] REF LABS) [facility] [place] BLOOD CULTURE 2020-10-30 22:06:00 Rustam Garcia [facility] CBC W/PLT COUNT & AUTO 2020-10-30 22:03:00 Rustam Garcia [facility] LACTIC ACID, VENOUS 2020-10-30 22:03:00 Rustam Garcia [facility] COMPREHENSIVE METABOLIC 2020-10-30 22:03:00 Rustam Garcia I [facility] PROTHROMBIN TIME/INR 2020-10-30 22:03:00 Rustam Garcia [facility] APTT 2020-10-30 22:03:00 Rustam Garcia [facility] CBC W/PLT COUNT & AUTO 2020-10-30 22:03:00 Rustam Garcia [facility] BLOOD CULTURE 2020-10-30 22:03:00 GarciaRustam lindo [facility] BLOOD CULTURE 2020-10-30 22:03:00 Rustam Garcia [facility] PANEL [facility] ter Plan of Care Planned Activity Planned Date Details Comments Source Future Scheduled 2030-10-[address] [facility] [facility] Test 00:00:00 malignant neoplasm of [facility] colon (procedure) [code = 807430608] Future Scheduled 2025-02-10 DTAP/TDAP/TD VACCINES [facility] Test 00:00:00 (2 - Td or Tdap) [code [facility] = DTAP/TDAP/TD VACCINES (2 - Td [...] 00:00:00 (1 of 1 - Medical Center ATWC90_Tmhisql PCV13) [code = PNEUMOCOCCAL 65+ YRS (1 of 1 - YOND07_Vhwfbrf PCV13)] Future Scheduled 2019-07-11 MEDICARE ANNUAL CH[facility] [...] es Test 00:00:00 [facility] breast [facility]procedure) [code = 069724020] Encounters Start End Encounter Admission Attending Care Care Encounter Source Date/Time Date/Time Type Type Clinicians Facility Department ID 2021-04-01 Outpatient [id number] Memoria 14:46:56 [id number] Bannister [id number] 2020-05-02 Inpatient [facility] [id number] [facility] 13:29:00 [id number] [facility] 2022-03-23 2022-03-23 Outpatient MAYRA JOY [id number] Mayra 11:15:00 11:15:00 JENSEN segura 2022-03-01 2022-03-01 Outpatient MAYRA BAUER [id number] Mayra 10:00:00 10:00:00 ILDEFONSO segura 2022-02-28 2022-02-28 Outpatient MAYRA BAUER [id number] Mayra 00:00:00 00:00:00 ILDEFONSO Seybol d 2022-02-16 2022-02-16 Outpatient KORTNEYMAYRA [id number] Mayra 15:15:00 15:15:00 AHMED Seybol d 2022-02-14 2022-02-14 Outpatient YASMIN MAYRA ENRIQUEZ [id number] Mayra 00:00:00 00:00:00 ROSSY HERNÁNDEZ Se ybold 2022-02-09 2022-02-09 Outpatient MAYRA OLIVER [id number] Mayra 00:00:00 00:00:00 ELIAN Seybol d 2022-02-07 2022-02-07 Outpatient MAYRA JOY [id number] Mayra 00:00:00 00:00:00 JENSEN Seybol d 2022-02-07 2022-02-07 Outpatient MAYRA JOY [id number] Mayra 00:00:00 00:00:00 JENSEN Seybol d 2022-02-03 2022-02-03 Outpatient MAYRA TUCKER [id number] Mayra 00:00:00 00:00:00 FARTUN Seybol d 2022-02-01 2022-02-01 Outpatient MAYRA BAUER [id number] Mayra 00:00:00 00:00:00 ILDEFONSO Seybol d 2022-01-31 2022-01-31 Outpatient MAYRA JOY [id number] Mayra 00:00:00 00:00:00 JENSEN Seybol d 2022-01-26 2022-01-26 Outpatient MAYRA BAUER [id number] Mayra 00:00:00 00:00:00 ILDEFONSO Seybol d 2022-01-25 2022-01-25 Outpatient EDDIE LOPEZ [id number] Mayra 10:45:00 10:45:00 Seybol d 2022-01-21 2022-01-21 Outpatient MAYRA BAUER [id number] Mayra 00:00:00 00:00:00 ILDEFONSO Seybol d 2022-01-20 2022-01-20 Outpatient MAYRA BAUER [id number] Mayra 00:00:00 00:00:00 ILDEFONSO Seybol d 2022-01-19 2022-01-19 Outpatient MAYRA BAUER [id number] Mayra 00:00:00 00:00:00 ILDEFONSO Seybol d 2022-01-11 2022-01-11 Outpatient MAYRA BAUER [id number] Mayra 00:00:00 00:00:00 ILDEFONSO Seybol d 2022-01-07 2022-01-07 Outpatient LAB90 MAYRA ENRIQUEZ [id number] Mayra 10:15:00 10:15:00 Seybol d 2022-01-07 2022-01-07 Office Eddie Bauer [id number] Mayra 09:15:00 10:00:00 Visit Ildefonso Hernandez 350.1.13.13 Se ybold Kameronyi 1.2.7.2.686 [id number] 2022-01-05 2022-01-05 Outpatient MAYRA JOY [id number] Mayra 00:00:00 00:00:00 JENSEN Seybol d 2021-12-13 2021-12-13 Outpatient MAYRA JOY [id number] Mayra 00:00:00 00:00:00 JENSEN Seybol d 2021-12-10 2021-12-10 Office MIA Joy 1.2.840.114 [id number] Mayra 11:45:00 12:00:00 Visit Jensen SALEM 350.1.13.13 Se ybold 1.2.7.2.686 [id number] 2021-12-02 2021-12-02 Outpatient MAYRA BAUER [id number] Mayra 00:00:00 00:00:00 ILDEFONSO Seybol d 2021-12-02 2021-12-02 Outpatient MAYRA ESPINOZA [id number] Mayra 00:00:00 00:00:00 MUHAMMED Seybo ld 2021-11-25 2021-11-25 Outpatient MAYRA BAUER [id number] Mayra 09:00:00 09:00:00 ILDEFONSO Seybol d 2021-11-18 2021-11-18 Outpatient LAB90 MAYRA ENRIQUEZ [id number] Mayra 14:40:00 14:40:00 Seybol d 2021-11-18 2021-11-18 Office Eddie Bauer [id number] Mayra 14:00:00 14:15:00 Visit Ildefonso Ng 350.1.13.13 Se ybold Somogyi 1.2.7.2.686 [id number] 2021-11-15 2021-11-15 Outpatient MAYRA JOY [id number] Mayra 00:00:00 00:00:00 JENSEN Seybol d 2021-11-11 2021-11-11 Office Eddie Bauer 1.2.840.114 [id number] Mayra 10:45:00 11:00:00 Visit Ildefonso Ng 350.1.13.13 Se ybold Somogyi 1.2.7.2.686 [id number] 2021-10-26 2021-10-26 Office MIA Tucker 1.2.840.114 [id number] Mayra 11:00:00 11:15:00 Visit [facility] 350.1.13.13 Seybmirella 1.2.7.2.686 [id number] 2021-10-18 2021-10-18 Outpatient MAYRA JOY [id number] Mayra 00:00:00 00:00:00 JENSEN Seybol d 2021-09-26 2021-09-26 Outpatient YASMIN ENRIQUEZ [id number] Mayra 00:00:00 00:00:00 ROSSY HERNÁNDEZ Se ybold 2021-09-26 2021-09-26 Outpatient MAYRA BAURE [id number] Mayra 00:00:00 00:00:00 ILDEFONSO Seybol d 2021-09-17 2021-09-17 Outpatient MAYRA JOY [id number] Mayra 00:00:00 00:00:00 JENSEN Seybol d 2021-09-17 2021-09-17 Outpatient YASMIN ENRIQUEZ [id number] Mayra 00:00:00 00:00:00 EYJABIERROSSY Se ybold 2021-09-13 2021-09-13 Outpatient EDDIE LOPEZ MAYRA ENRIQUEZ [id number] Mayra 14:00:00 14:00:00 Seybol d 2021-09-13 2021-09-13 Outpatient BENITAMAYRA [id number] Mayra 00:00:00 00:00:00 JENSEN Seybol d 2021-09-10 2021-09-10 Outpatient MAYRA JOY [id number] Mayra 00:00:00 00:00:00 JENSEN Seybol d 2021-09-08 2021-09-08 Office Benita, MIA 1.2.840.114 [id number] Mayra 11:45:00 12:00:00 Visit Jensen ODELL 350.1.13.13 Se ybold 1.2.7.2.686 [id number] 2021-09-08 2021-09-08 Outpatient MAYRA TUCKER [id number] Mayra 10:30:00 10:30:00 SUAD Seybol d 2021-09-08 2021-09-08 Outpatient BENITAMAYRA [id number] Mayra 00:00:00 00:00:00 JENSEN Seybol d 2021-08-29 2021-08-29 Outpatient YASMIN ENRIQUEZ [id number] Mayra 00:00:00 00:00:00 EY, ROSSY Se ybold 2021-08-28 2021-08-28 Outpatient YASMIN ENRIQUEZ [id number] Mayra 00:00:00 00:00:00 EY, ROSSY Se ybold 2021-08-24 2021-08-24 Outpatient MAYRA JOY [id number] Mayra 00:00:00 00:00:00 JENSEN Seybol d 2021-08-23 2021-08-23 Outpatient YASMIN ENRIQUEZ [id number] Mayra 00:00:00 00:00:00 EY, ROSSY Se ybold 2021-08-19 2021-08-19 Outpatient MAYRA ENRIQUEZ [id number] Mayra 07:10:00 07:10:00 Seybol d 2021-08-19 2021-08-19 Outpatient KORTNEY MAYRA ENRIQUEZ [id number] Mayra 06:30:00 06:30:00 AHMED Seybol d 2021-08-18 2021-08-18 Outpatient KORTNEY MAYRA ENRIQUEZ [id number] Mayra 00:00:00 00:00:00 AHMED Seybol d 2021-08-18 2021-08-18 Outpatient SLOAN, MAYRA ENRIQUEZ [id number] Mayra 00:00:00 00:00:00 ADRYENE Seybol d 2021-08-17 2021-08-17 Outpatient STEWARD, MAYRA ENRIQUEZ [id number] Mayra 00:00:00 00:00:00 DEANDRE Seybol d 2021-08-05 2021-08-05 Outpatient RENEASANDRINE MAYRA ENRIQUEZ [id number] Mayra 00:00:00 00:00:00 Seybol d 2021-07-29 2021-07-29 Outpatient MAYRA ENRIQUEZ [id number] Mayra 00:00:00 00:00:00 Seybol d 2021-07-28 2021-07-28 Office Eddie Bauer 1.2.840.114 [id number] Mayra 10:45:00 11:00:00 Visit Ildefonso Ng 350.1.13.13 Se ybold Somogyi 1.2.7.2.686 [id number] 2021-07-28 2021-07-28 Outpatient MAYRA JOY [id number] Mayra 00:00:00 00:00:00 JENSEN Seybol d 2021-07-27 2021-07-27 Outpatient MAYRA TUCKER [id number] Mayra 00:00:00 00:00:00 SUAD Seybol d 2021-07-19 2021-07-19 Outpatient YASMIN ENRIQUEZ [id number] Mayra 00:00:00 00:00:00 EY ROSSY ybold 2021-07-14 2021-07-14 Outpatient YASMIN ENRIQUEZ [id number] Mayra 00:00:00 00:00:00 EY, ROSSY Se ybold 2021-07-13 2021-07-13 Outpatient MAYRA ENRIQUEZ [id number] Mayra 11:00:00 11:00:00 Seybol d 2021-07-13 2021-07-13 Office MIA Sheets [id number] Mayra 09:45:00 10:00:00 [facility].13.13 [facility] 1.2.7.2.686 [id number] 2021-07-13 2021-07-13 Outpatient KORTNEYMAYRA [id number] Mayra 00:00:00 00:00:00 AHMED Seybol d 2021-07-13 2021-07-13 Outpatient MAYRA ENRIQUEZ [id number] Mayra 00:00:00 00:00:00 Seybol d 2021-07-05 2021-07-05 Outpatient MAYRA LITTLE [id number] Mayra 10:45:00 10:45:00 JONATHANLAND Seybo ld 2021-06-30 2021-06-30 Outpatient MAYRA CHERRY [id number] Mayra 00:00:00 00:00:00 GNEEVA Seybo ld 2021-06-30 2021-06-30 Outpatient MAYRA CHERRY [id number] Mayra 00:00:00 00:00:00 GENEVA Seybo ld 2021-06-28 2021-06-28 Outpatient EDDIE LOPEZ [id number] Mayra 13:30:00 13:30:00 Seybol d 2021-06-28 2021-06-28 Outpatient MAYRA JOY [id number] Mayra 00:00:00 00:00:00 JENSEN Seybol d 2021-06-24 2021-06-24 Outpatient MAYRA JOY [id number] Mayra 00:00:00 00:00:00 JENSEN Seybol d 2021-06-24 2021-06-24 Outpatient MAYRA JOY [id number] Mayra 00:00:00 00:00:00 JENSEN Seybol d 2021-06-23 2021-06-23 Outpatient SIDNEY MAYRA ENRIQUEZ [id number] Mayra 10:30:00 10:30:00 PEARLAND Seybo ld 2021-06-23 2021-06-23 Outpatient BENITA, MAYRA ENRIQUEZ [id number] Mayra 00:00:00 00:00:00 JENSEN Seybol d 2021-06-17 2021-06-17 Outpatient BENITAMAYRA [id number] Mayra 00:00:00 00:00:00 JENSEN Seybol d 2021-06-11 2021-06-11 Outpatient ROSSIRMA ENRIQUEZ [id number] Mayra 00:00:00 00:00:00 ROSSY HERNÁNDEZ Se ybold 2021-06-11 2021-06-11 Outpatient VANDANABoniTYRA ENRIQUEZ [id number] Mayra 00:00:00 00:00:00 EYROSSY Se ybold 2021-06-10 2021-06-10 Office MIA Joy 1.2.840.114 [id number] Mayra 13:45:00 14:00:00 Visit [facility] 350.1.13.13 Se ybold 1.2.7.2.686 [id number] 2021-06-10 2021-06-10 Outpatient MAYRA ENRIQUEZ [id number] Mayra 11:30:00 11:30:00 Seybol d 2021-06-09 2021-06-09 Office MIA Sheets [id number] Mayra 13:00:00 13:15:00 Visit [facility] 350.1.13.13 Se ybold 1.2.7.2.686 [id number] 2021-06-09 2021-06-09 Outpatient JOANNATANMAYMAYRA [id number] Mayra 13:00:00 13:00:00 AHMED Seybol d 2021-06-02 2021-06-02 Outpatient MAYRA JOY [id number] Mayra 00:00:00 00:00:00 JENSEN Seybol d 2021-05-26 2021-05-26 Outpatient MAYRA ENRIQUEZ [id number] Mayra 13:45:00 13:45:00 Seybol d 2021-05-07 2021-05-07 Outpatient MAYRA JOY [id number] Mayra 00:00:00 00:00:00 JENSEN Seybol d 2021-04-29 2021-04-29 Outpatient MAYRA ENRIQUEZ [id number] Mayra 10:45:00 10:45:00 Seybol d 2021-04-16 2021-04-16 Outpatient MAYRA ENRIQUEZ [id number] Mayra 14:30:00 14:30:00 Seybol d 2021-04-09 2021-04-09 Outpatient MAYRA JOY [id number] Mayra 00:00:00 00:00:00 JENSEN Seybol d 2021-04-01 2021-04-01 Outpatient LAB MAYRA ENRIQUEZ [id number] Mayra 15:30:00 15:30:00 Seybol d 2021-04-01 2021-04-01 Office ELY Howard 1.2.840.114 [id number] Mayra 14:45:45 15:00:45 Visit Skyler 350.1.13.13 Se ybold 1.2.7.2.686 [id number] 2021-03-12 2021-03-12 Outpatient MAYRA JOY [id number] Mayra 00:00:00 00:00:00 JENSEN Seybol d 2021-03-10 2021-03-10 Outpatient MAYRA SHEETS [id number] Mayra 10:45:00 10:45:00 AHMED Seybol d 2021-03-04 2021-03-04 Outpatient MAYRA JOY [id number] Mayra 13:45:00 13:45:00 JENSEN Seybol d 2021-03-03 2021-03-03 Outpatient STAR ENRIQUEZ [id number] Mayra 00:00:00 00:00:00 MD NORAH Seybol d 2021-02-12 2021-02-12 Outpatient MAYRA TOTH [id number] Mayra 00:00:00 00:00:00 FAYYAZ Seybol d 2021-02-12 2021-02-12 Outpatient ANTIONETTE MAYRA ENRIQUEZ [id number] Mayra 00:00:00 00:00:00 FAYYAZ Seybol d 2021-02-05 2021-02-05 Outpatient MAYRA ENRIQUEZ [id number] Mayra 10:00:00 10:00:00 Seybol d 2021-01-25 2021-01-25 Outpatient LAB47 MAYRA ENRIQUEZ [id number] Mayra 15:15:00 15:15:00 Seybol d 2021-01-25 2021-01-25 Outpatient FERNANDAMAYRA [id number] Mayra 14:30:00 14:30:00 ROSSI Seybol d 2021-01-19 2021-01-19 Outpatient YASMIN ENRIQUEZ [id number] Mayra 00:00:00 00:00:00 JABIER HERNÁNDEZICE Se louis 2021-01-15 2021-01-15 Outpatient MAYRA JOY [id number] Mayra 00:00:00 00:00:00 JENSEN Seybol d 2020-10-30 2020-11-07 [facility] ER Garcia Rustam Rickn [facility] [id number] 20:55:00 14:16:00 [facility] 2020-11-04 2020-11-04 Surgery Sarahi [facility] [id number] 15:45:00 17:20:00 [facility] 2020-11-04 2020-11-04 Anesthesia Buddy [facility] [id number] 15:45[facility]00 16:49:00 [facility]30 2020-10-30 Emergency ER [facility] Emergency [id number] [facility] 20:54:00 20:54:00 2020-10-30 2020-10-30 Travel [facility] [id number] [facility] 00:00[facility]00 [facility] Results Test Description Test Time Test Comments Results Result Comments Source AFB culture + smear (non-sputum) 2020-12-24 15:38:00 Test Item Value Reference Range Interpretation Comme nts Result (test code = 6463-4) No acid-fast bacilli isolated in 42 day s AFB Smear (test code = 51482-9) No acid fast bacilli [facility]SPUTUM)2020-12-24 15:38:00 Test Item Value Reference Range Interpretation Comments CULTURE (BEAKER) (test No acid-fast bacilli code = 1095) isolated in 42 days AFB SMEAR (BEAKER) No acid fast bacilli (test code = 994) seen Fungus culture + [id number] 00:34:00 Test Item Value Reference Range Interpretation Comments Result (test code = No fungus isolated in 6463-4) 28 days Fungus Smear (test No fungi seen code = 1406) [facility] + [id number] 00:34:00 Test Item Value Reference Range Interpretation Comments CULTURE (BEAKER) (test No fungus isolated in code = 1095) 28 days FUNGUS SMEAR (BEAKER) No fungi seen (test code = 1406) Anaerobic [id number] 07:45:00 Test Item Value Reference Range Interpretation Comments Result (test code = No anaerobes isolated 6463-4) [facility] [id number] 07:45:00 Test Item Value Reference Range Interpretation Comments CULTURE (BEAKER) (test No anaerobes isolated code = 1095) POC-Glucose [id number] 11:29:00 Test Item Value Reference Range Interpretation Comments POC-Glucose Meter (test 102 mg/dL 70-110 : TE STED AT [facility] code = 1538) [address] [facility], 770 30: Mannequin Mold Maker/Techni fan ID = [id number] for WHITLEY DEMPSEY Lab Interpretation (test Normal code = 96638-8) [facility] [id number] 11:29:00 Test Item Value Reference Range Interpretation Comments POC-GLUCOSE METER 102 mg/dL 70-110 : TESTED A T [facility] 6720 (BEAKER) (test code = WENDY Howe [facility], 1538) 01719: Mannequin Mold Maker/Techni fan ID = [id number] for WHITLEY LOZANO SARS-CoV2/RT-PCR (Asymptomatic ONLY)2020-11-07 11:03:00 Test Item Value Reference Range Interpretation Comments SARS-COV2/RT-PCR Negative Not Detected, (test code = Negative, See 80610-7) external report for linked test SARS-COV-2 [facility] (test code = 88060-3) MARCELA (test code = Negative result for [...] of the Act. Fact Sheet for Healthcare Providers:https://www.[employer].ISIS/sites/default/f candice/product/documents/F act_Sheet_HC_Providers_L wuz_CSJI-OoT-7.pdf Fact Sheet for Healthcare Patients:https://www.[employer].ISIS/sites/default/fi les/product/documents/Fa ct_Sheet_Patients_Lyra_S ARS-CoV-2.pdf Performing Laboratory:[facility] [place] [address] [facility] ([facility])2020-11-07 11:03:00 Test Item Value Reference Range Interpretation Comments SARS-COV2/RT-PCR (test Negative Not Detected, Negative, code = 8018984) See external report for linked test SARS-COV-2 PERFORMING LAB [facility] MAGALI (test code = 2926427) Negative result for this test determines that [...] individuals suspected of COVID-19 by their healthcare provider.This test [...] justifying the authorization of the emergency use ofin vitro diagnostic tests for detection and/or diagnosis of COVID-19 is terminated under Section 564(b)(2) of the Act or the EUA is revoked under Section 564(g) of the Act.Fact Sheet for Healthcare Prov iders:https://www.[employer].ISIS/sites/default/files/product/documents/Fact_Sheet_HC _Vauenyrsy_Cutg_HMLV-CvW-8.pdfFact Sheet for Healthcare Patients:https://www.[employer].ISIS/sites/default/files/product/docume nts/Ouhv_Cidgc_Irhjwdjy_Oenc_KWUB-KdA-1.pdfPerforming Laboratory:[facility], [place] [address]OMNLRNOWSS OBTAINED CULTURE + GRAM [id number] 10:18:00 Test Item Value Reference Range Interpretation [...] gram negative (BEAKER) (test code = rods 533907) POCT-GLUCOSE [id number] 07:18:00 Test Item Value Reference Range Interpretation Comments POC-GLUCOSE METER 88 mg/dL 70-110 : TESTED A T [facility] 6720 (BEAKER) (test code = [facility], 1538) 22833: Mannequin Mold Maker/Techni fan ID = [id number] for WHITLEY SOLIS POCT-GLUCOSE [id number] 21:15:00 Test Item Value Reference Range Interpretation Comments POC-GLUCOSE METER 90 mg/dL 70-110 : TESTED A T [facility] 6720 (BEAKER) (test code = [facility], 1538) 43127: Mannequin Mold Maker/Techni fan ID = [id number] for SEMI WAGNER ISRRAEL POCT-GLUCOSE [id number] 16:43:00 Test Item Value Reference Range Interpretation Comments POC-GLUCOSE METER 93 mg/dL 70-110 : TESTED A T [facility] 6720 (BEAKER) (test code = [facility], 1538) 67741: Mannequin Mold Maker/Techni fan ID = [id number] for STERLING EN, WHITLEY POCT-GLUCOSE [id number] 11:31:00 Test Item Value Reference Range Interpretation Comments POC-GLUCOSE METER 93 mg/dL 70-110 : TESTED A T [facility] 6720 (BEAKER) (test code = [facility], 1538) 58838: Mannequin Mold Maker/Techni fan ID = [id number] for STERLING EN, WHITLEY POCT-GLUCOSE [id number] 08:06:00 Test Item Value Reference Range Interpretation Comments POC-GLUCOSE METER 95 mg/dL 70-110 : TESTED A T [facility] 6720 (BEAKER) (test code = [facility], 1538) 63077: Mannequin Mold Maker/Techni fan ID = [id number] for STERLING EN, WHITLEY POCT-GLUCOSE [id number] 00:16:00 Test Item Value Reference Range Interpretation Comments POC-GLUCOSE METER 116 mg/dL 70-110 H : TESTED A T [facility] 6720 (BEAKER) (test code = [facility], 1538) 26987: Mannequin Mold Maker/Techni fan ID = [id number] for Mehnaz lucas Abi POCT-GLUCOSE [id number] 19:10:00 Test Item Value Reference Range Interpretation Comments POC-GLUCOSE METER 84 mg/dL 70-110 : TESTED A T [facility] 6720 (BEAKER) (test code = [facility], 1538) 05157: Mannequin Mold Maker/Techni fan ID = [id number] for HUMBERTO ALFRED SPIN/CONCENTRATION [id number] 14:30:00 Test Item Value Reference Range Interpretation Comments Concentration charged (test code = Done 2657) [facility] [id number] 14:30:00 Test Item Value Reference Range Interpretation Comments CONCENTRATION CHARGED (BEAKER) (test Done code = 2657) POCT-GLUCOSE [id number] 12:14:00 Test Item Value Reference Range Interpretation Comments POC-GLUCOSE METER 171 mg/dL 70-110 H : TESTED A T [facility] 6720 (BEAKER) (test code = WENDY EMMANUEL [place], 1538) 23528: Mannequin Mold Maker/Techni fan ID = [id number] for HUMBERTO CRAIN Basic Metabolic [id number] 06:51:00 Test Item Value Reference Range Interpretation Comments Sodium (test code = 142 meq/L 365-068 1224-2) Potassium (test code = 4.5 meq/L 3.5-5.1 2823-3) Chloride (test code = 108 meq/L 98-107 H 2075-0) CO2 (test code = 25 meq/L 22-29 2028-9) BUN (test code = 17 mg/dL 7-21 3094-0) Creatinine (test code 0.58 mg/dL 0.57-1.25 = 2160-0) Glucose (test code = 118 mg/dL 70-105 H 2345-7) Calcium (test code = 9.5 mg/dL 8.4-10.2 39220-3) EGFR (test code = 126 mL/min/1.73 [place] [address]-7) NOT ACCURATE CREATININE CLEARANCE IN PREDICTING GLOMERULAR FILTRATION RATE . ESTIMATED GFR I S NOT APPLICABLE FOR DIALYSIS PATIENTS. MARCELA (test code = MARCELA) Mannequin Mold Maker ID - HEIDY M Lab Interpretation Abnormal (test code = 25541-6) [facility]2021-[facility] 06:51:00 Test Item Value Reference Range Interpretation Comments Magnesium (test code = 2.4 mg/dL 1.6-2.6 01181-6) MARCELA (test code = MARCELA) Mannequin Mold Maker ID - HEIDY M Lab Interpretation (test Normal code = 49482-2) [facility]2021-04-29 06:51:00 Test Item Value Reference Range Interpretation Comments Phosphorus (test code = 2.8 mg/dL 2.3-4.7 2777-1) MARCELA (test code = MARCELA) Mannequin Mold Maker ID - HEIDY M Lab Interpretation (test Normal code = 58718-8) [facility] Rosa[facility] METABOLIC [id number] 06:51:00 Test Item Value Reference Range Interpretation [...] S NOT APPLICABLE FOR DIALYSIS PATIEN TS. Mannequin Mold Maker ID - HEIDY [id number] 06:51:00 Test Item Value Reference Range Interpretation Comments MAGNESIUM (BEAKER) (test code = 2.4 mg/dL 1.6-2.6 627) Mannequin [employer] Maker ID - HEIDY [id number] 06:51:00 Test Item Value Reference Range Interpretation Comments PHOSPHORUS (BEAKER) (test code = 2.8 mg/dL 2.3-4.7 604) [employer]nequin [employer] Maker ID - HEIDY MPOCT-GLUCOSE [id number] 06:09:00 Test Item Value Reference Range Interpretation Comments POC-GLUCOSE METER 137 mg/dL 70-110 H : TESTED A T [facility] 6720 (BEAKER) (test code = [facility], 1538) 95581: Mannequin Mold Maker/Techni fan ID = [id number] for GR AHAM, TAYLA POCT-GLUCOSE [id number] 00:45:00 Test Item Value Reference Range Interpretation Comments POC-GLUCOSE METER 182 mg/dL 70-110 H : TESTED A T [facility] 6720 (BEAKER) (test code = [facility], 1538) 15352: Mannequin Mold Maker/Techni fan ID = [id number] for GR AHAM, TAYLA POCT-GLUCOSE [id number] 18:31:00 Test Item Value Reference Range Interpretation Comments POC-GLUCOSE METER 140 mg/dL 70-110 H : TESTED A T [facility] 6720 (BEAKER) (test code = [facility], 1538) 29139: Mannequin Mold Maker/Techni fan ID = [id number] for MOHSEN VALENTIN POCT-GLUCOSE [id number] 12:33:00 Test Item Value Reference Range Interpretation Comments POC-GLUCOSE METER 137 mg/dL 70-110 H : TESTED A T [facility] 6720 (BEAKER) (test code = [facility], 1538) 88517: Mannequin Mold Maker/Techni fan ID = [id number] for HUMBERTO CRAIN POCT-GLUCOSE [id number] 06:09:00 Test Item Value Reference Range Interpretation Comments POC-GLUCOSE METER 122 mg/dL 70-110 H : TESTED A T [facility] 6720 (BEAKER) (test code = [facility], 1538) 99630: Mannequin Mold Maker/Techni fan ID = [id number] for JANAY SILVA BASIC METABOLIC [id number] 04:55:00 Test Item Value Reference Range Interpretation [...] S NOT APPLICABLE FOR DIALYSIS PATIEN TS. Mannequin Mold Maker ID - CARA [id number] 04:55:00 Test Item Value Reference Range Interpretation Comments MAGNESIUM (BEAKER) (test code = 2.1 mg/dL 1.6-2.6 627) Mannequin [employer] Maker ID - CARA [id number] 04:55:00 Test Item Value Reference Range Interpretation Comments PHOSPHORUS (BEAKER) (test code = 2.1 mg/dL 2.3-4.7 L 604) Mannequin Mold Maker ID - CARA ROSALES, [id number] 01:09:00 Test Item Value Reference Range Interpretation Comments Rh Factor (test code = 2589) NEG ABO Grouping (test code = 2588) A [facility] [id number] 23:52:00 Test Item Value Reference Range Interpretation Comments POC-GLUCOSE METER 123 mg/dL 70-110 H : TESTED A T [facility] 6720 (BEAKER) (test code = [facility], 153) 04988: Mannequin Mold Maker/Techni fan ID = [id number] for PE CADENCE, JANAY Type and screen, [id number] 22:05:00 Test Item Value Reference Range Interpretation Comments ABO/RH AUTOMATED (BEAKER) (test A NEGATIVE code = 2260) Ab Scrn (test code = 890-4) NEGATIVE [facility] [id number] 18:14:00 Test Item Value Reference Range Interpretation Comments POC-GLUCOSE METER 187 mg/dL 70-110 H : TESTED A T [facility] 6720 (BEAKER) (test code = [facility], 153) 62015: Mannequin Mold Maker/Techni fan ID = [id number] for Ag batah, Mckenzie POCT-GLUCOSE [id number] 11:31:00 Test Item Value Reference Range Interpretation Comments POC-GLUCOSE METER 110 mg/dL 70-110 : TESTED A T [facility] 6720 (BEAKER) (test code = [facility], 1538) 23035: Mannequin Mold Maker/Techni fan ID = [id number] for Ag batah, Mckenzie POCT-GLUCOSE [id number] 05:59:00 Test Item Value Reference Range Interpretation Comments POC-GLUCOSE METER 116 mg/dL 70-110 H : TESTED A T [facility] 6720 (BEAKER) (test code = [facility], 1538) 28109: Mannequin Mold Maker/Techni fan ID = [id number] for ISRRAEL RUSSELL [id number] 05:51:00 Test Item Value Reference Range Interpretation Comments Triglycerides (test 167 mg/dL code = 2571-8) MARCELA (test code = MARCELA) TRIGLYCERIDE REFERENCE RANGELow Risk <150Borderline Risk 150-199High Risk 200-499Very High Risk >=500Operator ID - HEIDY Janey [facility]ORGAN [facility] [id number] 05:51:00 Test Item Value Reference Range Interpretation [...] S NOT APPLICABLE FOR DIALYSIS PATIEN TS. Mannequin Mold Maker ID - HEIDY [id number] 05:51:00 Test Item Value Reference Range Interpretation Comments MAGNESIUM (BEAKER) (test code = 1.7 mg/dL 1.6-2.6 627) Mannequin Mold Maker ID - HEIDY [id number] 05:51:00 Test Item Value Reference Range Interpretation Comments PHOSPHORUS (BEAKER) (test code = 2.5 mg/dL 2.3-4.7 604) Mannequin Mold Maker ID - HEIDY [id number] 05:51:00 Test Item Value Reference Range Interpretation Comments TRIGLYCERIDES (BEAKER) (test code = 167 mg/dL 540) TRIGLYCERIDE REFERENCE RANGELow Risk <150Borderline Risk 150-199High Risk 200-499Very High Risk >=500Operator ID - HEIDY MCBC with platelet count + automated [id number] 05:22:00 Test Item Value Reference Range Interpretation Comments WBC (test code = 6690-2) 4.3 See_Comment [A utomated message] The system [employer] generated this result transmitted ref erence range: 3.5 - 10 .5 K/L. The refe rence range was not u sed to interpret this result as normal/abnor mal. RBC (test code = 789-8) 3.21 See_Comment L [Au tomated message] The system [employer] generated this result transmitted ref erence range: 3.93 - 5 .22 M/L. The refe rence range was not u sed to interpret this result as normal/abnor mal. MCHC (test code = 786-4) 33.7 See_Comment L [A utomated message] The system [employer] generated this result transmitted ref erence range: [...] code = 169 See_Comment [Aut omated message] 777-3) The system [employer] generated this result transmitted ref erence range: 150 - 45 0 K/CU MM. The referen ce range was not u sed to interpret this result as normal/abnor mal. MPV (test code = 10.2 fL 9.4-12.3 69858-4) nRBC (test code = 413) 0 See_Comment [Aut omated message] The system [employer] generated this result transmitted ref erence range: [...] See_Comment [Aut omated message] 670) The system [employer] generated this result transmitted ref erence range: 1.56 - 6 .13 K/L. The refe rence range was not u sed to interpret this result as normal/abnor mal. # Lymphs (test code = 1.47 See_Comment [Auto mated message] 414) The system [employer] generated this result transmitted ref erence range: 1.18 - 3 .74 K/L. The refe rence range was not u sed to interpret this result as normal/abnor mal. # Monos (test code = 0.63 See_Comment H [Autom ated message] 415) The system [employer] generated this result transmitted ref erence range: 0.24 - 0 .36 K/L. The refe rence range was not u sed to interpret this result as normal/abnor mal. # Eos (test code = 416) 0.03 See_Comment L [Au tomated message] The system [employer] generated this result transmitted ref erence range: 0.04 - 0 .36 K/L. The refe rence range was not u sed to interpret this result as normal/abnor mal. # Baso (test code = 417) 0.03 See_Comment [A utomated message] The system [employer] generated this result transmitted ref erence range: 0.01 - 0 .08 K/L. The refe rence range was not u sed to interpret this result as normal/abnor mal. Immature 1 % 0-1 Granulocytes-Relative (test code = 2801) Lab Interpretation (test Abnormal code = 03552-1) [facility] W/PLT COUNT & AUTO [id number] 05:22:00 Test Item Value Reference Range Interpretation [...] 0-1 PERCENT (BEAKER) (test code = 2801) POCT-GLUCOSE [id number] 23:56:00 Test Item Value Reference Range Interpretation Comments POC-GLUCOSE METER 114 mg/dL 70-110 H : TESTED A T [facility] 6720 ([employer]) (test code = [facility], 153) 77865: Mannequin Mold Maker/Techni fan ID = [id number] for ISRRAEL RUSSELL Clostridium difficile GDH [id number] 21:39:00 Test Item Value Reference Range Interpretation Comments C. Difficle Toxin Negative Negative (test code = 7572445614) C. Difficile GDH Negative Negative No indicati on of Antigen (test code = Clostri dium 3771290433) difficile infection and n o colonization. Discontinue enteric isolati on and therapy. MARCELA (test code = Testing performed MARCELA) by [employer] Rapid Cassette Assay. For GDH, published sensitivity of the assay is 98.7% compared to cytotoxicity testing. For Toxin AB, published sensitivity is 87.8% and specificity 99.4% compared to cytotoxicity testing.Verificati on of kit performance was done by the [facility] Microbiology Lab prior to clinical use. Lab Interpretation Normal (test code = 36053-0) [facility] DIFFICILE GDH [id number] 21:39:00 Test Item Value Reference Range Interpretation Comments CDT TOXIN (test code Negative Negative = 1137923193) CDT GDH ANTIGEN (test Negative Negative No ind ication of code = 5747899546) Clostridi um difficile infection and n o colonization. Discontinue ent thee isolation and t herapy. Testing performed by [employer] Rapid Cassette Assay. For GDH, published sensitivity of the assay is 98.7% compared to cytotoxicity testing. For Toxin AB, published sensitivity is 87.8% and specificity 99.4% compared to cytotoxicity testing.Verification of kit performance was done by the [facility] MicrobiologyLab prior to clinical use.POCT-GLUCOSE [id number] 16:00:00 Test Item Value Reference Range Interpretation Comments POC-GLUCOSE METER 114 mg/dL 70-110 H : [facility] T [facility] ([employer]) (test code = [facility], 153) 08829: Mannequin Mold Maker/Techni fan ID = [id number] for MOHSEN VALENTIN POCT-GLUCOSE [id number] 11:35:00 Test Item Value Reference Range Interpretation Comments POC-GLUCOSE METER 107 mg/dL 70-110 : TESTED A T [facility] 6720 (BEAKER) (test code = WENDY Howe [facility], 1538) 63745: Mannequin Mold Maker/Techni fan ID = [id number] for MOHSEN VALENTIN Blood Culture # 10:58:00 Test Item Value [...] rods Lab Interpretation Abnormal (test code = 52083-5) [facility] RosaBLO[facility] [id number] 10:58:00 Test Item Value Reference Range Interpretation Comments CULTURE A From Aerobic An d (BEAKER) (test Anaerobic Bot tles Same code = 1095) organism has be en isolated from cultures(s) of the same body site and collection date . Repeat identifi cation and susceptibil ity testing perform ed only after consultat ion with the [facility] al microbiology laboratory.Refe r to previous cultur e ofEscherichia c roldan GRAM STAIN From aerobic and RESULT (BEAKER) anaerobic (test code = bottles: gram 1123) negative rods BLOOD [id number] 10:57:00 Test Item Value Reference Range Interpretation [...] 1123) bottles: gram negative rods Blood Culture Panel([employer])2020-11-02 10:53:00 Test Item Value Reference Interpretation Comments Range LISTERIA MONOCYTOGENES Not detected Not detected (test code = 21761-3) STAPHYLOCOCCUS (test Not detected Not detected code = 28019-9) STAPHYLOCOCCUS AUREUS Not detected Not detected (test code = 53688-4) Streptococcus (test Not detected Not detected code = 83136-7) STREPTOCOCCUS Not detected Not detected AGALACTIAE (GROUP B) (test code = 13807-9) STREPTOCOCCUS Not detected Not detected PNEUMONIAE (test code = 14038-3) Streptococcus pyogenes Not detected Not detected (Group A) (test code = 36168-2) ACINETOBACTER BAUMANNII Not detected Not detected (test code = 76913-2) HAEMOPHILUS INFLUENZAE Not detected Not detected (test code = 24483-2) NEISSERIA MENINGITIDIS Not detected Not detected (test code = 18801-1) ENTEROBACTERIACEAE Detected Not detected A (test code = 30180-9) ENTEROBACTER CLOACOE Not detected Not detected COMPLEX (test code = 65030-0) KLEBSIELLA OXYTOCA Not detected Not detected (test code = 40621-4) KLEBSIELLA PNEUMONIAE Not detected Not detected (test code = 06399-9) PROTEUS (test code = Not detected Not detected 66633-3) SERRATIA MARCESCENS Not detected Not detected (test code = 64888-0) DANIEL ALBICANS (test Not detected Not detected code = 36398-3) DANIEL GLABRATA (test Not detected Not detected code = 71642-8) DANIEL KRUSEI (test Not detected Not detected code = 48048-7) DANIEL PARAPSILOSIS Not detected Not detected (test code = 61020-0) DANIEL TROPICALIS Not detected Not detected (test code = 44351-1) ESCHERICHIA COLI (test Detected Not detected A Esche richia code = 28167-4) coliKPC not detected (a carbapenamase gene)First-line therapy: MeropenemDe-esc ala te based on susceptibilitie s.T his test does n ot evaluate for ESBLReference Range: Not Detected METHICILLIN-RESISTANCE GENE (test code = 60644-9) VANCOMYCIN-RESISTANCE GENE (test code = 77699-2) CARBAPENEM-RESISTANCE Not detected Not detected Note: GENE (test code = Antimicrob ial 45836-0) resistance can occur via multi ple mechanisms. A N ot Detected result for the [employer] antimicrobial resistance gene assays does not indicate antimicrobial susceptibility. Subculturing is required for species identification and susceptibility testing of isolates.TAMANNA G: A Not Detected result for the KPC gene does not indicate susceptibility to carbapenems. Gr am negative bacter ia can be resistan t to carbapenems by mechanisms othe r than carrying t he KPC gene. ENTEROCOCCUS (test code Not detected Not detected = 61774-5) PSEUDOMONAS AERUGINOSA Not detected Not detected (test code = 86626-7) MARCELA (test code = MARCELA) Other bacteria and resistance markers not targeted by this PCR panel cannot be excluded; therefore clinical correlation and follow up of serology, culture results, and other molecular studies is required. The results are not intended to be used as the sole means for clinical diagnosis or patient management decisions. This sample was tested at the [facility] Molecular Diagnostics Laboratory using the [employer] Blood Culture ID Panel. It is FDA cleared and has been verified and approved by the [facility] Molecular Diagnostics Laboratory for clinical use. This laboratory is CLIA-certified and [employer] (CAP)-accredited to perform high complexity testing. Lab Interpretation Abnormal (test code = 47453-6) [facility] Rosa[facility] CULTURE IDENTIFICATION [id number] 10:53:00 Test Item Value Reference Interpretation Comments Range LISTERIA MONOCYTOGENES Not detected Not detected (test code = 6529670) STAPHYLOCOCCUS (test Not detected Not detected code = 0044337) STAPHYLOCOCCUS AUREUS Not detected Not detected (test code = 8605240) STREPTOCOCCUS (test code Not detected Not detected = 3394301) STREPTOCOCCUS AGALACTIAE Not detected Not detected (GROUP B) (test code = 5396098) STREPTOCOCCUS PNEUMONIAE Not detected Not detected (test code = 4351663) STREPTOCOCCUS PYOGENES Not detected Not detected (GROUP A) (test code = 0929140) ACINETOBACTER BAUMANNII Not detected Not detected (test code = 3665548) HAEMOPHILUS INFLUENZAE Not detected Not detected (test code = 5426290) NEISSERIA MENINGITIDIS Not detected Not detected (test code = 5506210) ENTEROBACTERIACEAE (test Detected Not detected A code = 3317478) ENTEROBACTER CLOACOE Not detected Not detected COMPLEX (test code = 1123726) KLEBSIELLA OXYTOCA (test Not detected Not detected code = 3080216) KLEBSIELLA PNEUMONIAE Not detected Not detected (test code = 1650) PROTEUS (test code = Not detected Not detected 4271762) SERRATIA MARCESCENS Not detected Not detected (test code = 2676707) DANIEL ALBICANS (test Not detected Not detected code = 4110928) DANIEL GLABRATA (test Not detected Not detected code = 2120290) DANIEL KRUSEI (test Not detected Not detected code = 8854309) DANIEL PARAPSILOSIS Not detected Not detected (test code = 2252444) DANIEL TROPICALIS (test Not detected Not detected code = 2470653) ESCHERICHIA COLI (test Detected Not detected A Esche richia coliKPC code = 1816996) not detected (a carbapenamase gene)First-line therapy: MeropenemDe-esc alat e based on susceptibilitie s.Th is test does no t evaluate for ESBLReference Range: Not Dete cted METHICILLIN-RESISTANCE GENE (test code = 4291887) VANCOMYCIN-RESISTANCE GENE (test code = 3373620) CARBAPENEM-RESISTANCE Not detected Not detected Note: Antimicrobial GENE (test code = resistance can ) occur via multi ple mechanisms. A N ot Detected result for the [employer] antimicrobial resistance gene assays does not indicate antimicrobial susceptibility. Subculturing is required for species identification and susceptibility testing of isolates.WARNIN G: A Not Detected re sult for the KPC gen e does not indica te susceptibility to carbapenems. Gr am negative bacter ia can be resistan t to carbapenems by mechanisms othe r than carrying t he KPC gene. ENTEROCOCCUS-BEAKER Not detected Not detected (test code = 1090334) PSEUDOMONAS Not detected Not detected AERUGINOSA-BEAKER (test code = 8670379) Other bacteria and resistance markers not targeted by this PCR panel cannot be excluded; therefore clinical correlation and follow up of serology, culture results, and other molecular studies is required. The results are not intended to be used as the sole means for clinical diagnosis or patient management decisions. This sample was tested at the [facility] Molecular Diagnostics Laboratory using the [employer] Software Blood Culture ID Panel. It is FDA cleared and has been verified and approved by the [facility] Molecular Diagnostics Laboratory for clinical use. This laboratory is CLIA-certified and College ofAmerican Pathologists (CAP)-accredited to perform high complexity testing.Manual [id number] 07:58:00 Test Item Value Reference Range Interpretation [...] = 3438) MARCELA (test code = MARCELA) Mannequin Mold Maker ID - Kayce Jus comments: Slide comments: Lab Interpretation Abnormal (test code = 37710-0) [facility] W/PLT COUNT & AUTO [id number] 07:58:00 Test Item Value Reference Range Interpretation [...] CONCENTRATION Decreased (CELLAVISION)(BEAKER) (test code = 3438) Mannequin Mold Maker ID - Kayce Luu comments: Slide comments:POCT-GLUCOSE METER 2020-11-02 06:13:00 Test Item Value Reference Range Interpretation Comments POC-GLUCOSE METER 109 mg/dL 70-110 : TESTED A T [facility] 6720 (BEAKER) (test code = WENDY EMM[place]U[facility] [place], 1538) [address]: Mannequin Mold Maker/Techni fan ID = [id number] for JANAY SILVA BASIC METABOLIC [id number] 06:01:00 Test Item Value Reference Range Interpretation [...] S NOT APPLICABLE FOR DIALYSIS PATIEN TS. Mannequin Mold Maker ID - HEIDY MPOCT-GLUCOSE [id number] 20:25:00 Test Item Value Reference Range Interpretation Comments POC-GLUCOSE METER 108 mg/dL 70-110 : [facility] (DINESH[facility] (test code = WENDY Howe [facility], 1538) 37684: Mannequin Mold Maker/Techni fan ID = [id number] for ES GOLDEN JACKSON RAD, CHEST, 1 VIEW, NON [id number] 12:43:00Reason for exam:->PICC placementShould this be performed at the bedside?->Yes [facility] 1955 Sex: FFINAL REPORT AP view of the chest dated 11/01/2020 COMPARISON: July 25, 2018 CLINICAL INFORMATION: PICC placement Comment: Since prior examination, there is interval placement of a right PICC line with the tip seen in the superior vena cava. No other changes are seen in the chest. Signed: Vishnu [place]ue[place] Verified Date/Time: 11/01/2020 12:43:02 Reading Location: [facility] B1 C013W Consult Reading Room Hepatic function [id number] 07:06:00 Test Item Value Reference Range Interpretation [...] 2.8 g/dL 3.5-5.0 L Specime n slightly 15211-3) hemolyzed Total Bilirubin (test 0.4 mg/dL 0.2-1.2 [...] 1742-6) hemolyzed MARCELA (test code = MARCELA) Mannequin Mold Maker ID - HEIDY Toth Lab Interpretation Abnormal (test code = 00225-7) [facility] Rosa[facility]I METABOLIC [id number] 07:06:00 Test Item Value Reference Range Interpretation [...] S NOT APPLICABLE FOR DIALYSIS PATIEN TS. Mannequin Mold Maker ID - HEIDY MHEPATIC FUNCTION [id number] 07:06:00 Test Item Value Reference Range Interpretation [...] Specimen slightly (test code = 347) hemolyzed Mannequin Mold Maker ID - HEIDY [facility] W/PLT COUNT & AUTO [id number] 06:30:00 Test Item Value Reference Range Interpretation [...] PERCENT (BEAKER) (test code = 2801) SARS-COV2/RT-PCR ([facility])2020-10-30 23:48:00 Test Item Value Reference Range Interpretation Comments SARS-COV2/RT-PCR Negative Not Detected, Performanc e of the Xpert (test code = Negative, See Xpress 3075768) external report SARS-CoV-2/F frank/RSV test for linked test has only bee n established in nasopharyngeal swab specimens. Use of the Xpert Xpress SARS-CoV-2/Flu/ RSV test with other spec imen types has not b een assessed and pe rformance characteristics are unknown. As wit h any molecular test, mutations withi n the targeted geneti c regions identified by mayra crook Xpert Xpress SARS-CoV-2/Flu/ RSV test could affect [...] or ot her patient managem ent decisions. Resu lts from the Xpert Xpres s SARS-CoV-2/Flu/ RSV test should be corre lated with the clinic al history, epidem iological data, and other data available to th e clinician evalu ating the patient. Invali d test results may occ ur from improper specim en collection; con lure to follow the anushka mmended sample collecti on, handling, and s torage procedures; capri hnical error. False ne gative results may occ ur if virus is presen t at levels below th e analytical limi t of detection (LOD: 131 copies/mL). Vir al nucleic acid ma y persist in vivo, indepe ndent of virus viability . Detection of an alyte target(s) does not imply that the corres ponding virus(es) are i nfectious or are the caus ative agents for clin ical symptoms. Recen t patient exposure to Flu Mist or other live atte nuated influenza vacci shar may cause inaccurat e positive result s.This test has been a uthorized by FDA under an EUA for use by authoriz ed laboratories. T his test is only authori zed for the duration of the declaration charlie [...] sooner.Fact She et for Healthcare Prov iders: https://www.PatientKeeper heid.ISIS/ Documents/Xpert %20Xpress %66YRWI-MdP-0-F frank-RSV/30 24508%20Rev.%2 0B%20HCP% 20Fact%20Sheet. pdfFact Sheet for Healt hcare Patients: https://www.I AM ATid.ISIS/ Documents/Xpert %20Xpress %08IOIV-TmU-5-F frank-30 2-4507%20Rev.%2 0B%20Pati ent%20Fact%20Sh eet.pdf SARS-COV-2 Favian Performed at:[facility] PERFORMING LAB [facility] dical (test code = Umvyld2734 [facility] 8106862) [place], [place] [address]bq: [phone] CT, [id number] 23:32:00Unlisted Reason for Exam - Click Yes and Enter Reason Below->YesUnlisted Reason for Exam->RUQ abdominal abscessWill this procedure require oral contrast?->No [facility] 1955 Sex: FFINAL REPORT CLINICAL HISTORY: Unlisted reason for examination, right upper quadrantabdominal abscess FINDINGS: Multiple axial images of the abdomen and pelvis were performed after theuncomplicated administration of IV contrast. Oral contrast was not given. This exam was performed according to our departmental dose-optimization program, which includes automated exposure control, adjustment of the mA and/or kV according to patient size and/or use of the iterative reconstruction technique. Comparison:None. Lower chest: Linear atelectasis versus scarring in the left lower lung. No pleural effusion or pneumothorax. Visualized cardiac contours normal. Liver: Hepatomegaly, measuring 18.7 cm in caudal dimension at the right midclavicular line. Gallbladder and biliary tree: The gallbladder is absent. There is central intrahepatic biliary ductal prominence. The common bile duct is dilated to 12 mm. No radiopaque choledocholithiasis. Spleen: No significant findings. Adrenal Glands: No si gnificant findings. Kidneys and ureters: There is heterogeneous enhancement of the left kidney. No perinephric fluid collection to suggest [...] subjacent fluid collection in the anterior abdominal wall measures 2.2 x 1.7 cm. The caliber of the fistulous tract between the abdominal wall and duodenum measures 1.2 cm in diameter. A fingerlike projection of the collection also extends inferiorly from the duodenum, measuring 3.2 x 1.0 cm. Pancreas: No [...] and third portions of the duodenum to theright upper quadrant subcutaneous tissues. Heterogeneous left renal parenchymal enhancement worrisome for pyelonephritis. Please correlate with urinalysis. No perinephric abscess. Hepatosplenomegaly. Biliary ductal prominence may relate to postcholecystectomy reservoir effect. Please correlate with LFTs. Signed: Alessandro Lopez MDReport Verified Date/Time: 10/30/2020 23:32:40 Lactic acid, venous STAT 2020-10-30 22:32:00 Test Item Value Reference Range Interpretation Comments Lactate, Venous (test code = 1.30 mmol/L 0.50-2.20 2872) Lab Interpretation (test code = Normal 81625-2) [facility] Rosa[facility]CT[facility]ID, [id number] 22:32:00 Test Item Value Reference Range Interpretation Comments LACTATE BLOOD VENOUS (2) (BEAKER) 1.30 mmol/L 0.50-2.20 (test code = 2872) Prothrombin time/[id number] 22:31:00 Test Item Value Reference Interpretation Comments [...] valves. Lab Interpretation Normal (test code = 38348-1) [facility] RosaaPTT2021-04-23 22:31:00 Test Item Value Reference Range Interpretation Comments PTT (test code = 02200-1) 32.2 See_Comment [ Automated message] The system [employer] generated this result transmitted ref erence range: 25.8 - 3 4.5 seconds. The re ference range was not u sed to interpret this result as normal/abnor mal. Lab Interpretation (test Normal code = 28590-8) [facility] RosaAPTT2021-04-23 22:31:00 Test Item Value Reference Range Interpretation Comments PARTIAL THROMBOPLASTIN TIME 32.2 seconds 25.8-34.5 (BEAKER) (test code = 760) PROTHROMBIN TIME/[id number] 22:31:00 Test Item Value Reference Range Interpretation Comments PROTIME (BEAKER) 11.7 seconds 9.8-12.0 (test code = 759) INR (BEAKER) (test 1.04 See_Comment [Automat ed message] code = 370) The system [employer] generated this result transmitted ref erence range: <=5.90. The reference range was not used to int erpret this result as normal/abnormal . RECOMMENDED COUMADIN/WARFARIN INR THERAPY RANGESSTANDARD DOSE: 2.0 - 3.0 Includes: PROPHYLAXIS for venous thrombosis, systemic embolization; TREATMENT for venous thrombosis and/or pulmonary embolus.HIGH RISK: Target INR is 2.5-3.5 for patients with mechanical heart valves.Comprehensive metabolic panel 2020-10-30 22:28:00 Test Item Value Reference Range Interpretation Comments Protein, Total (test 7.1 See_Comment [Autom ated code = 2885-2) message] The system which generated this result transmitted reference range : 6.0 - 8.5 gm/dL . The reference r anjum was not used to interpret this result as normal/abnormal . Albumin (test code = 3.7 g/dL 3.5-5.0 17963-6) Alkaline Phosphatase 111 U/L 30-115 (test code = 6768-6) Total Bilirubin (test 0.7 mg/dL 0.1-1.2 code = 1975-2) Sodium (test code = 134 meq/L 135-148 L 2951-2) Potassium (test code = 4.0 meq/L 3.6-5.5 2823-3) Chloride (test code = 101 meq/L 98-106 2075-0) CO2 (test code = 23 meq/L 24-32 L 8-9) BUN (test code = 22 mg/dL 10-26 3094-0) Creatinine (test code = 0.67 mg/dL 0.50-1.20 2160-0) Glucose (test code = 136 mg/dL 70-110 H 2345-7) Calcium (test code = 9.7 mg/dL 8.5-10.5 58351-4) AST (test code = 23 U/L 5-40 1920-8) ALT (test code = 24 U/L 5-50 1742-6) EGFR (test code = 107 mL/min/1.73 [place] [address]-0) NOT ACCURATE CREATININE CLEARANCE IN PREDICTING GLOMERULAR FILTRATION RATE . ESTIMATED GFR I S NOT APPLICABLE FOR DIALYSIS PATIEN TS. Lab Interpretation Abnormal (test code = 97474-2) [facility] [id number] 22:28:00 Test Item Value Reference Range Interpretation [...] PATIEN TS. CBC W/PLT COUNT & AUTO [id number] 22:22:00 Test Item Value Reference Range Interpretation [...] L 0.00-0.20 (test code = 417) VITAMIN [id number] 11:15:00 Test Item Value Reference Range Interpretation Comments VITAMIN A (test 10.7 Vitamin A, S erumVitamin A 10.7 code = SARAH) Low ug/dL 22.0- 69.5 01Reference intervals for v itamin A determined from LabCorpinternal studies. Individuals wit h vitamin A less than 20 ug/dL areconsideredvi tamin A deficient and those with serum concentrations qpossbxr22 ug/dL are considered severely deficient.This test was developed and its perform ance characteristics determined by [facility]. It has not been cleared or approvedby [facility] Food and Drug Administration [id number] 07:54:00 Test Item Value Reference Range Interpretation Comments ZINC (test Test not performed () TRACE MUSA MENT (EDTA) code = ZI) ug/dL TUBE WAS SENT; WHOLE BLOODWHOLE BLOO D ZINC (TC 556413) WAS DONE TO REPLACE WRON G TEST CODE WHICHIS FO R SERUM;ZINC,WHOL E BLOOD RESULT : 679 UG/DL REFERENCE RANGE 440-860 UG/DLSe rum specimen was re ceived improperly sepa rated. Serumshould be from cells within one hour ofcollection.No tified Ade Sacrament o at rbrjjop44/31/20 20 Detection Limit = 5 VITAMIN B1 (THIAMINE)2020-05-13 17:08:00 Test Item Value Reference Range Interpretation Comments VITAMIN B1 109.6 nmol/L 66.5-200.0 Performed At: B N (THIAMINE) (test [facility] code = VITB1) [address] [place], [place] [id number] ra Ricardo CROSS Ph:[phone] [id number] 05:52:00 Test Item Value Reference Range Interpretation Comments GLUBED (test code = GLUBED) 109 MG/DL 70-105 H [id number] 20:55:00 Test Item Value Reference Range Interpretation Comments GLUBED (test code = GLUBED) 113 MG/DL 70-105 H BASIC METABOLIC [id number] 18:15:00 Test Item Value Reference Range Interpretation [...] code 8.5 mg/dL 8.5-10.5 N = CA) [id number] 16:21:00 Test Item Value Reference Range Interpretation Comments GLUBED (test code = GLUBED) 101 MG/DL 70-105 N [id number] 11:30:00 Test Item Value Reference Range Interpretation Comments GLUBED (test code = GLUBED) 146 MG/DL 70-105 H CBC W/AUTO [id number] 08:33:00 Test Item Value Reference Range Interpretation [...] 9.9 fL 8.6-12.6 N = MPV) WBC [id number] 08:33:00 Test Item Value Reference Range Interpretation [...] MORPHOLOGY (test code = NORMAL NORMAL PLTMORPH) [id number] 08:10:00 Test Item Value Reference Range Interpretation Comments MAGNESIUM (test code = MAG) 1.9 mg/dl 1.8-2.5 N BASIC METABOLIC [id number] 08:09:00 Test Item Value Reference Range Interpretation Comments SODIUM (test code 138 mmol/L 135-145 N = NA) POTASSIUM (test 2.5 mmol/L 3.6-5.0 LL Critical Sindi ue code = K) reported toFirs t Name:EWA Brice Name:JUMANA [facility] READ BACK AND VERIFIEDby N.LAB.NB1, on [...] mg/dL 8.5-10.5 N = CA) CBC W/AUTO [id number] 07:55:00 Test Item Value Reference Range Interpretation [...] 9.9 fL 8.6-12.6 N = MPV) WBC [id number] 07:55:00 Test Item Value Reference Range Interpretation Comments TOTAL CELLS COUNTED (test code = TCC) #CELLS RBC MORPHOLOGY COMMENT (test code = NORMAL MOC) PLATELET MORPHOLOGY (test code = NORMAL PLTMORPH) CBC W/AUTO [id number] 07:55:00 Test Item Value Reference Range Interpretation [...] 9.9 fL 8.6-12.6 N = MPV) WBC [id number] 07:55:00 Test Item Value Reference Range Interpretation Comments TOTAL CELLS COUNTED (test code = TCC) #CELLS RBC MORPHOLOGY COMMENT (test code = NORMAL MOC) PLATELET MORPHOLOGY (test code = NORMAL PLTMORPH) CBC W/AUTO [id number] 07:52:00 Test Item Value Reference Range Interpretation [...] (test code = EO#) x10 3/uL 0.0-0.5 [id number] 05:44:00 Test Item Value Reference Range Interpretation Comments GLUBED (test code = GLUBED) 110 MG/DL 70-105 H VITAMIN D [id number] 22:25:00 Test Item Value Reference Range Interpretation Comments VITAMIN D 25-HYDROXY 41 ng/ml 30-100 N Interpr etive Data :Vit D (test code = VITD25) 25 Hydr oxy Vit D Status Vit OH Vit D Co nc Range(ng/mL) De ficient < 20 Insufficient 20 - < 30 Sufficient 30 - 100 Upper Safety Limit > 100 [id number] 20:49:00 Test Item Value Reference Range Interpretation Comments GLUBED (test code = GLUBED) 149 MG/DL 70-105 H [id number] 16:58:00 Test Item Value Reference Range Interpretation Comments GLUBED (test code = GLUBED) 118 MG/DL 70-105 H THYROID REFLEX TO [id number] 12:37:00 Test Item Value Reference Range Interpretation Comments THYROID REFLEX TO FT4 (test code 1.180 uIU/ml 0.450-5.330 N = TSHREFLEX) [id number] 11:24:00 Test Item Value Reference Range Interpretation Comments GLUBED (test code = GLUBED) 120 MG/DL 70-105 H FOLIC [id number] 11:12:00 Test Item Value Reference Range Interpretation Comments FOLIC ACID (test code = FOL) 14.29 ng/ml 6.59-20.0 N [id number] 11:06:00 Test Item Value Reference Range Interpretation Comments FERRITIN (test code = SHANTELLE) 247 ng/mL 11-307 N - XR SMALL [id number] 10:49:00 [facility] 1955 Sex: FPatient Name: YULISSA IRWIN Unit No: [id number] EXAMS: CPT: [id number] XR SMALL BOWEL 23811 SMALL BOWEL SERIES: Comparison: CT abdomen and pelvis of 05/02/2020 TECHNIQUE:The patient was given water-soluble Gastrografin contrast. A total of 10 images were exposed with 0.6 minutes of fluoroscopy time and totalradiation dose of 10.973 mGy. FINDINGS: The preliminary KUB demonstrates surgical clips overlying the gallbladder fossa, normal bowel gas pattern, and surgical clips overlying the stomach compatible with prior surgery. The small bowel loops were normal in caliber. No evidence of small bowel obstruction. No abnormal mass- effect was seen upon the small bowel loops. [...] (1052) BATCH NO: N/A Name: YULISSA IRWIN [facility] Phys: JANELL. Desmond Vazquez MD [address] : 1955 Age: 64 Sex: F [place], [place] [address] Loc: N.6032 1 Exam Date: 05/07/2020 Status: ADM IN PH: FAX: PAGE 1 Signed Report [id number] 07:47:00 Test Item Value Reference Range Interpretation Comments PREALBUMIN (test code = PREALB) 6.4 mg/dl 18-38 L [id number] 05:17:00 Test Item Value Reference Range Interpretation Comments GLUBED (test code = GLUBED) 136 MG/DL 70-105 H [id number] 20:01:00 Test Item Value Reference Range Interpretation Comments GLUBED (test code = GLUBED) 121 MG/DL 70-105 H - MRI BRAIN W/O [id number] 10:34:00 [facility] : 1955 Sex: FPatient Name: YULISSA IRWIN Unit No: [id number] EXAMS: CPT: [id number] MRI BRAIN W/O CONTRAST 02685 PROCEDURE: MRI BRAIN WITHOUT INTRAVENOUS GADOLINIUM COMPARISON: None. INDICATIONS: head trauma TECHNIQUE: Avariety of imaging planes and parameters were utilized for visualization of suspected pathology. Images were performed without contrast. FINDINGS: CEREBRUM: There is a normal gyral pattern of the brain. There is mild age-appropriate cerebral volume loss. There is mild patchy periventricular white matter T2 hyperintensity. No areas of diffusion restriction are seen to indicate acute stroke. CEREBELLUM: No edema, hemorrhage, mass, acute infarction, or inappropriate atrophy. BRAINSTEM: No edema, hemorrh age, mass, acute infarction, or inappropriate atrophy. CSF [...] and signed by: ODILON ORANTES MD CC: hRett rFy MD; Jay Lawson MD; Undefined Provider Technologist: Partha Foster Trscr Dt/Tm: 05/06/2020 (1034) by:ElvinAJM BATCH NO: N/A Name: YULISSA IRWIN [facility] Phys: Jay Galindo MD [address] [facility] : 1955 Age: 64 Sex: F [place], [place] [address] Loc: N.6032 1 Exam Date: 05/06/2020 Status: ADM IN PH: FAX: PAGE 1 Signed ReportBASIC METABOLIC [id number] 05:04:00 Test Item Value Reference Range Interpretation [...] code 8.4 mg/dL 8.5-10.5 L = CA) [id number] 05:04:00 Test Item Value Reference Range Interpretation Comments MAGNESIUM (test code = MAG) 2.0 mg/dl 1.8-2.5 N VITAMIN [id number] 05:04:00 Test Item Value Reference Range Interpretation Comments VITAMIN B12 (test code = VITB12) 1231 pg/ml 180-914 H BASIC METABOLIC [id number] 04:44:00 Test Item Value Reference Range Interpretation [...] code 8.4 mg/dL 8.5-10.5 L = CA) [id number] 04:44:00 Test Item Value Reference Range Interpretation Comments MAGNESIUM (test code = MAG) 2.0 mg/dl 1.8-2.5 N VITAMIN [id number] 04:44:00 Test Item Value Reference Range Interpretation Comments VITAMIN B12 (test code = VITB12) pg/ml 180-914 CBC W/AUTO [id number] 04:19:00 Test Item Value Reference Range Interpretation [...] 0.0-0.1 N UA RFLX MICR CULT IF [id number] 18:27:00 Test Item Value Reference Range Interpretation [...] SGU) UA BLOOD DIPSTICK (test code = TERSEA) NEGATIVE NEGATIVE UA PH DIPSTICK (test code [...] culture: Suprapubic PainSpecimen Description: CATHETERIZED (STRAIGHT)COMPREHENSIVE METABOLIC [id number] 15:53:00 Test Item Value Reference Range Interpretation [...] PHOSPHATASE (test code = ALKP) COMPREHENSIVE METABOLIC [id number] 15:53:00 Test Item Value Reference Range Interpretation [...] (test code = ALKP) - XR ABDOMEN [id number] 15:21:00 [facility] : 1955 Sex: FPatient Name: YULISSA IRWIN Unit No: [id number] EXAMS: CPT: [id number] XR ABDOMEN 1V 64168 History: constipation COMPARISON STUDY: 04/02/2020 Abdomen 1 view FINDINGS: A mild amount of stool is present in colon. Mild nonspecific small bowel dilatation is present. Surgical clips are present in the right upperquadrant. No free pneumatosis or portal venous gas is present. No suspicious urinary tract calcifications are seen. The lung bases are clear. IMPRESSION: 1. A mild amount of stool is present in colon.2. Mild nonspecific small bowel dilatation is present. at 1521 Reported and signed by: Anderson Silverio MD CC: Rhtet Fry MD; Undefined Provider Technologist: MAYRA Ochoa Time: DAP (Gy m2): Air Kerma (mGy): TrscrDt/Tm: 05/05/2020 (1521) by:[email or web address] Orig Print D/T: S: 05/05/2020 (1524) BATCH NO: N/A Name: YULISSA IRWIN [facility] Phys: Rhett Altamirano [address] : 1955 Age: 64 Sex: F [place], [place] [address] Loc: N.6032 1 Exam Date: 05/05/2020 Status: ADM IN PH: FAX: PAGE 1 Signed Report- CT HEAD/BRAIN W/O [id number] 13:49:00 [facility] : 1955 Sex: FPatient Name: YULISSA IRWIN Unit No: [id number] EXAMS: CPT: [id number] CT HEAD/BRAIN W/O CONT 33574 CT HEADWITHOUT CONTRAST TECHNIQUE: Contiguous noncontrast axial images acquired [...] osseous pathology present. IMPRESSION: No acute intracranial abnormality. at 1349 Reported and signed by: Gayatri Flynn MD CC: Rhett Fry MD; Undefined Provider Technologist: Shanon Hough CTDI: 44.73 DLP: 717.91 Trscr Dt/Tm: 05/05/2020 (1349) by:[email or web address] Orig Print D/T: S: 05/05/2020 (1352) BATCH NO: N/A Name: YULISSA IRWIN [facility] Phys: Rhett Altamirano [address] : 1955 Age: 64 Sex: F [place], [place] [address] Loc: N.6032 1 Exam Date: 05/05/2020 Status: ADM IN PH: FAX: PAGE 1 Signed [id number] - GLYCOSYLATED [id number] 07:34:00 Test Item Value Reference Range Interpretation Comments GLYCOSYLATED HEMOGLOBIN 5.4 % 4.0-6.0 N Inte rpretive Data: (HA1C) (test code = Caution should be GLYHGB) exercised when interpreting th e HgbA1c in patients wit h hemolytic anemi a, iron deficiency and when the total hemoglobi n is < 9g/dL, due to a decrease in average age of red blood cells CBC W/AUTO [id number] 06:42:00 Test Item Value Reference Range Interpretation [...] 10.8 fL 8.6-12.6 N = MPV) WBC [id number] 06:42:00 Test Item Value Reference Range Interpretation [...] MORPHOLOGY (test code = NORMAL NORMAL PLTMORPH) [id number] 05:31:00 Test Item Value Reference Range Interpretation Comments GLUBED (test code = GLUBED) 114 MG/DL 70-105 H CBC W/AUTO [id number] 05:00:00 Test Item Value Reference Range Interpretation [...] 10.8 fL 8.6-12.6 N = MPV) WBC [id number] 05:00:00 Test Item Value Reference Range Interpretation Comments TOTAL CELLS COUNTED (test code = TCC) #CELLS RBC MORPHOLOGY COMMENT (test code = NORMAL MOC) PLATELET MORPHOLOGY (test code = NORMAL PLTMORPH) CBC W/AUTO [id number] 05:00:00 Test Item Value Reference Range Interpretation [...] 10.8 fL 8.6-12.6 N = MPV) WBC [id number] 05:00:00 Test Item Value Reference Range Interpretation Comments TOTAL CELLS COUNTED (test code = TCC) #CELLS RBC MORPHOLOGY COMMENT (test code = NORMAL MOC) PLATELET MORPHOLOGY (test code = NORMAL PLTMORPH) [id number] 23:32:00 Test Item Value Reference Range Interpretation Comments GLUBED (test code = GLUBED) 115 MG/DL 70-105 H - XR CHEST 2 [id number] 14:08:00 [facility] : 1955 Sex: FPatient Name: YULISSA IRWIN Unit No: [id number] EXAMS: CPT: [id number] XR CHEST 2 V 99900 COMPARISON: none HISTORY: Shortness of breath Capsule comparison: CT of 05/02/2020, MRCP of 05/04/2020 FINDINGS: Lungsare clear. Heart size normal, without vascular congestion. Bony thorax appears unremarkable. Minimalposterior costophrenic angle blunting. CONCLUSION: Trace bilateral pleural effusions. at 1408 Reported and signed by: Joe Guzman MD CC: Rhett Fry MD; Undefined Provider Technologist: Terrell Ochoa Time: DAP (Gy m2): Air Kerma (mGy): Trscr Dt/Tm: 05/04/2020 (1408) by:[email or web address] Orig Print D/T: S: 05/04/2020 (1411) BATCH NO: N/A Name: YULISSA IRWIN [facility] Phys: Rhett Altamirano [address] :1955 Age: 64 Sex: F [place] [address] Loc: N.6032 1 Exam Date: 05/04/2020 Status: ADM IN PH: FAX: PAGE 1 Signed Report- MRI [id number] 12:39:00 [facility] : 1955 Sex: FPatient Name: YULISSA IRWIN Unit No: [id number] EXAMS: CPT: [id number] MRI MRCP 98296 MRCP/MRI ABDOMEN Clinical history:pancreatits sp aspen Technique: Noncontrast MRI abdomen was performed. 3-D MRCP images were obtained with 3-D reformations. Findings:Reference is made to recent CT of May 02, 2020. Thereis postsurgical changes with clips in the gallbladder fossa. There is trace bilateral pleural fluid with adjacent bibasilar atelectasis. There is trace perihepatic ascites. The liver is mildly fatty infiltrated. There is a few incidental scattered bilateral renal cysts. The spleen, adrenal glands, are unremarkable. There is mild diffuse pancreas edema and soft tissue stranding in the peripancreatic soft tissues consistent with acute pancreatitis. The common bile duct is dilated at the dawood hepatis measuring 10 mm transverse. The cystic duct remnant measures up to 24 mm in length. There is a smoothtransition point at the ampulla with no visible intraductal stone. The pancreas duct is currently measuring upper limits normal at 2 mm. No pancreas divisum. No visible discrete pancreas mass or pseudocyst is visible at this time. IMPRESSION: 1. Mild dilatation of the common bile duct and intrahepatichepatic biliary ducts with a smooth transition point at the ampulla. No visible intraductal stone 2.Evidence of acute pancreatitis again noted. No visible pancreas mass or pseudocyst. 3. Fatty liver 4. Trace bilateral pleural fluid. Trace perihepatic ascites. at 1239 Reported and signed by: Leatha Fisher MD CC: Desmond Vazquez MD; Rhett Fry MD; Undefined Provider Technologist: Bela Miranda [facility] Dt/Tm: 05/04/2020 (8818) by:[email or web address] Orig Print D/T: S: 05/04/2020 (7467) BATCH NO: N/A Name: YULISSA IRWIN [facility] Phys: LEESE. Desmond Vazquez MD [address] [facility] : 1955 Age: 64 Sex: F [place], [place] [address] Loc: N.6032 1 Exam Date: 05/04/2020 Status: ADM IN PH: FAX: PAGE 1 Signed ReportCBC W/AUTO [id number] 09:51:00 Test Item Value Reference Range Interpretation [...] 10.6 fL 8.6-12.6 N = MPV) WBC [id number] 09:51:00 Test Item Value Reference Range Interpretation [...] SEEN NORMAL code = PLTMORPH) BASIC METABOLIC [id number] 08:08:00 Test Item Value Reference Range Interpretation [...] mg/dL 8.5-10.5 L = CA) LIVER FUNCTION [id number] 08:08:00 Test Item Value Reference Range Interpretation [...] code = 87 U/L 42-121 N ALKP) [id number] 08:08:00 Test Item Value Reference Range Interpretation Comments LIPASE (test code = LIP) 28 IU/L 22-51 N [id number] 08:08:00 Test Item Value Reference Range Interpretation Comments MAGNESIUM (test code = MAG) 2.1 mg/dl 1.8-2.5 N CBC W/AUTO [id number] 07:42:00 Test Item Value Reference Range Interpretation [...] 10.6 fL 8.6-12.6 N = MPV) WBC [id number] 07:42:00 Test Item Value Reference Range Interpretation Comments TOTAL CELLS COUNTED (test code = TCC) #CELLS RBC MORPHOLOGY COMMENT (test code = NORMAL MOC) PLATELET MORPHOLOGY (test code = NORMAL PLTMORPH) CBC W/AUTO [id number] 07:42:00 Test Item Value Reference Range Interpretation [...] 10.6 fL 8.6-12.6 N = MPV) WBC [id number] 07:42:00 Test Item Value Reference Range Interpretation Comments TOTAL CELLS COUNTED (test code = TCC) #CELLS RBC MORPHOLOGY COMMENT (test code = NORMAL MOC) PLATELET MORPHOLOGY (test code = NORMAL PLTMORPH) CBC W/AUTO [id number] 07:39:00 Test Item Value Reference Range Interpretation [...] = EO#) x10 3/uL 0.0-0.5 HIGH SENSITIVITY [id number] 16:25:00 Test Item Value Reference Range Interpretation Comments HIGH SENSITIVITY CRP (test code 30.530 mg/dl 0.000-0.747 H = CRPHS) BASIC METABOLIC [id number] 05:58:00 Test Item Value Reference Range Interpretation [...] code 9.0 mg/dL 8.5-10.5 N = CA) [id number] 05:58:00 Test Item Value Reference Range Interpretation Comments LIPASE (test code = LIP) 137 IU/L 22-51 H [id number] 05:58:00 Test Item Value Reference Range Interpretation Comments PHOSPHOROUS (test code = PHOS) 2.1 mg/dl 2.5-4.6 L [id number] 05:58:00 Test Item Value Reference Range Interpretation Comments MAGNESIUM (test code = MAG) 1.7 mg/dl 1.8-2.5 L CBC W/AUTO [id number] 05:40:00 Test Item Value Reference Range Interpretation [...] x10 3/uL 0.0-0.1 N Coronavirus 2019 nCoV [id number] 17:34:00 Test Item Value Reference Range Interpretation Comments Coronavirus 2019 Negative Negative This test h as been nCoV Bedside (test authorize d by FDA under code = [id number]) an EUA for use byauthorized laboratories. T [...] and/o r diagnosis of CO VID-19 under Xyuvjhu89 4(b)(1) of the Act, 21 U.S .C [...] and/o r diagnosis of CO VID-19 under Asjgcfl94 4(b)(1) of the Act, 21 U.S .C 360bbb-3(b)(1), unless theauthorizatio n is terminated or r evoked sooner. - CT ABD PELVIS [id number] 16:09:00 [facility] : 1955 Sex: FPatient Name: YULISSA IRWIN Unit No: [id number] EXAMS: CPT: [id number] CT ABD PELVIS W/CONT 92752 EXAM: CT ABDOMEN AND PELVIS WITH CONTRAST INDICATION: History of gastric bypass, abdominal pain and diarrhea for one day. COMPARISON: None. TECHNIQUE: Volumetric CT acquisition of the abdomen and pelvis after the intravenous administration of contrast. Axial, coronal and sagittal reconstructions. IV contrast: 85 mL Isovue-300 GFR: 16, creatinine: 0.57 CT radiation dose optimization is achieved for this examination by the use of a CT protocol in accordance with ACR practice guidelines and adherence to camp dining room attendant recommendations. FINDINGS: Lower thorax: Subsegmental atelectasis in the left lower lobe with elevation of left diaphragm. No pleural or pericardial effusion. Small-sized sliding-type hiatal hernia. Liver: No focal liver abnormality. Portal vein patent. Liver size within normal limits. Gallbladder: Cholecystectomy clips in the gallbladder fossa. Biliary tree: Nondilated common bile duct, which measures up to 13 mm in diameter, with abrupt shouldering/tapering at the level of the pancreatic head. Etiology of obstruction not identified. Spleen: Normal. Pancreas: No pancreatic duct dilation or atrophy. No discrete solid or cystic pancreatic mass. Moderate peripancreatic swelling and edema surrounding [...] and caliber without significant stenosis or dilation. Lymph nodes: No pathologic adenopathy within the abdomen and pelvis based on size. Gastrointestinal tract: Colonic diverticulosis without evidence of Name: YULISSA IRWIN [facility] Phys: TRANH. - Street,[facility] Jerri Rick [address] : 1955 Age: 64Sex: [place] [address] Loc: N.ERS Exam Date: 05/02/2020 Status: PRE ER PH: FAX: PAGE 1 Signed Report (CONTINUED) Patient Name: YULISSA IRWIN Unit No: [id number] EXAMS: CPT: [id number] CT ABD PELVIS W/CONT 03831 (Continued) acute diverticulitis. No obstruction or pneumatosis. Noevidence of wall thickening. Appendix: Normal appendix. Peritoneum [...] pancreatitis. A component of acute duodenitis could be considered. Common bile duct dilation measuring up to 13 mm in diameter with abrupt shouldering at the level the pancreatic head, etiology of obstruction not identified. No evidence of an clinic duct dilation or atrophy. No discrete solid or cystic pancreatic mass.No evidence of pancreatic pseudocyst formation or evidence of necrotizing pancreatitis. Recommendation: MRI pancreas protocol with MRCP, to be performed with and without contrast, which could provide additional characterization and etiology of obstruction. Differential includes choledocholithiasis. at 1609 Reported and signed by: YUDELKA VALENTE MD CC: Elissa Street MD Technologist: Joselito Hanson CTDI: 18.7 DLP: 983.15 Trscr Dt/Tm: 05/02/2020 (1609) by:[email or web address] Orig Print D/T: S: 05/02/2020 (1612) BATCH NO: N/A Name: YULISSA IRWIN [facility] Phys: TRANToya.[place] - [address] : 1955 Age: 64 Sex: [place] [address] Loc: N.ERS Exam Date: 05/02/2020 Status: PRE ER PH: FAX: PAGE 2 Signed Report BASIC METABOLIC [id number] 15:15:00 Test Item Value Reference Range Interpretation [...] mg/dL 8.5-10.5 N = CA) LIVER FUNCTION [id number] 15:15:00 Test Item Value Reference Range Interpretation [...] code = 100 U/L 42-121 N ALKP) [id number] 15:15:00 Test Item Value Reference Range Interpretation Comments LIPASE (test code = LIP) 381 IU/L 22-51 H BASIC METABOLIC [id number] 15:12:00 Test Item Value Reference Range Interpretation [...] mg/dL 8.5-10.5 N = CA) LIVER FUNCTION [id number] 15:12:00 Test Item Value Reference Range Interpretation [...] PHOSPHATASE (test code = U/L 42-121 ALKP) [id number] 15:12:00 Test Item Value Reference Range Interpretation Comments LIPASE (test code = LIP) IU/L 22-51 BASIC METABOLIC [id number] 15:09:00 Test Item Value Reference Range Interpretation [...] mg/dL 8.5-10.5 N = CA) LIVER FUNCTION [id number] 15:09:00 Test Item Value Reference Range Interpretation Comments TOTAL PROTEIN (test code = PROT) g/dL 6.7-8.2 ALBUMIN (test code = ALB) g/dL 3.2-5.5 BILIRUBIN TOTAL (test code = BILT) mg/dL 0.2-1.3 BILIRUBIN DIRECT (test code = BILD) mg/dL 0.00-0.20 SGOT/AST (test code = AST) U/L 10-42 SGPT/ALT (test code = ALT) U/L 10-60 ALKALINE PHOSPHATASE (test code = U/L 42-121 ALKP) [id number] 15:09:00 Test Item Value Reference Range Interpretation Comments LIPASE (test code = LIP) IU/L 22-51 LACTIC [id number] 15:04:00 Test Item Value Reference Range Interpretation Comments LACTIC ACID (test code = LACT) 1.5 mmol/L 0.5-2.0 N CBC W/AUTO [id number] 14:49:00 Test Item Value Reference Range Interpretation [...] 0.0-0.1 N UA RFLX MICR CULT IF [id number] 14:49:00 Test Item Value Reference Range Interpretation [...] culture: Suprapubic PainSpecimen Description: CLEAN CATCHCBC W/AUTO [id number] 14:42:00 Test Item Value Reference Range Interpretation [...] code = EO#) x10 3/uL 0.0-0.5 URINE [id number] 13:51:00 Test Item Value Reference Range Interpretation Comments CULTURE (BEAKER) (test A 30-39 ,000 col/mL Daniel code = 1095) albicans >100,000 col/mL skin floraURINALYSIS W/ [id number] 18:13:00 Test Item Value Reference Range Interpretation [...] 1663) SOURCE(BEAKER) (test code = 2795) RAPID [id number] 17:57:00 Test Item Value Reference Range Interpretation Comments RAPID MYOGLOBIN (BEAKER) (test code 34 ng/mL <107 = 2237) RAPID TROPONIN [id number] 17:57:00 Test Item Value Reference Range Interpretation Comments RAPID TROPONIN I (BEAKER) (test code < ng/mL <0.05 = 1483) B-TYPE NATRIURETIC FACTOR (BNP)2018-07-25 17:57:00 Test Item Value Reference Range Interpretation Comments B-TYPE NATRIURETIC PEPTIDE (BEAKER) 22 pg/mL 0-100 (test code = 700) RAPID [id number] 17:56:00 Test Item Value Reference Range Interpretation Comments RAPID CKMB (BEAKER) (test code = < ng/mL 0.0-4.3 1482) [id number] 17:54:00 Test Item Value Reference Range Interpretation [...] patients with mechanical heart valves.CT, BRAIN, WITHOUT [id number] 17:49:00Reason for exam:->DIZZINESSWhat is the patient's sedation requirement?->No SedationFINAL REPORT CT head without contrast 07/25/2018 5:48 PM CLINICAL HISTORY: Syncope/faintingDIZZINESS TECHNIQUE: Axial noncontrast CT images through the head were obtained. This examination was performed according to our departmental dose optimization program, which includes automated exposure control, adjustment of the mA and/or kV according to patient size, and/or use of iteratedreconstruction technique. COMPARISON: None available FINDINGS: There is no hemorrhage, extra-axial co llection, mass, hydrocephalus, or midline shift. There is no CT evidence for cerebral infarction. There is generalized parenchymal volume loss. The visualized paranasal sinuses and mastoid air cells are well aerated. There is posterior right parietal scalp swelling. The skull is intact. IMPRESSION: No intracranial hemorrhage or mass effect. If concern for acute pathology persists, further evaluation with MRI is recommended. Signed: Darci Blake MDReport Verified Date/Time: 07/25/2018 17:49:33 Reading Location: [facility] Radiology Reading Room BASI METABOLIC [id number] 17:42:00 Test Item Value Reference Range Interpretation [...] CALCU LATE m ESTIMATED GFR. HEPATIC FUNCTION [id number] 17:42:00 Test Item Value Reference Range Interpretation [...] (test code = 31 U/L 5-50 347) [id number] 17:42:00 Test Item Value Reference Range Interpretation Comments LIPASE (BEAKER) (test code = 749) 235 U/L 40-240 [id number] 17:42:00 Test Item Value Reference Range Interpretation Comments MAGNESIUM (BEAKER) (test code = 2.0 mg/dL 1.5-3.0 627) RAD, CHEST, 2 [id number] 17:42:00Reason for exam:->sobFINAL REPORT Chest, PA and lateral. History: Shortness of breath. Comparison: None available. Discussion: The cardiomediastinal silhouette and pulmonary vasculature are within normal limits. The lungs are clear without evidence of consolidation or effusion. There are no acute osseous abnormalities. The soft tissues are unremarkable. IMPRESSION: No acute cardiopulmonary abnormality. Signed: Long Obandoeport Verified Date/Time: 07/25/2018 17:42:28 Reading Location: [address] Radiology Reading Room CBC W/PLT COUNT & AUTO [id number] 17:29:00 Test Item Value Reference Range Interpretation [...]
[2022-03-01] MEDS ORDERED: ACETAMINOPHEN 500 MG TAB ONE (12:38)
[2022-03-01 12:51] LABS: Absolute Lymphocytes (CBC) 2.5 K/uL (0.7-4.9); Hematocrit 27.2 % (36.0-45.0); MCV 84.2 fL (80-100); MPV 6.6 fL (7.6-11.3); RBC Red Blood Cell Count 3.23 M/uL (3.86-4.86)
[2022-03-01 12:55] LABS: Protime INR 1.22
[2022-03-01 13:10] LABS: Albumin 2.6 g/dL (3.4-5.0); Bilirubin Total 0.2 mg/dL (0.2-1.0); Potassium 4.1 mmol/L (3.5-5.1); Protein, Total 7.8 g/dL (6.4-8.2)
--- NOTE | 2022-03-01 13:10 | RAD REPORT ---
EXAM DESCRIPTION: CTAbdomen Pelvis W Contrast - 03/01/2022 12:54 pm CLINICAL HISTORY: Abdominal pain. abcess superior and lateral to umbilicus COMPARISON: Abdomen Pelvis W Contrast dated 02/01/2022; Abdomen Pelvis W Contrast dated 07/19/2018 TECHNIQUE: Biphasic CT imaging of the abdomen and pelvis was performed with 100 ml non-ionic IV cont rast. All CT scans are performed using dose optimization technique as appropriate and may include automated exposure control or mA/KV adjustment according to patient size. FINDINGS: Linear atelectasis is present in both lung bases, greater on the left.Small left pleural e ffusion. Postsurgical changes are present of cholecystectomy. Biliary tree is mildly prominent. Postsurgical changes involve the stomach. Along the anterior aspect of the gastric and trunk there is moderate inflammatory changes present. There is fluid and air extending from the anterior margin of the gastric antrum to the right anterior abdominal wall and into the subcutaneous fat extending to th e skin surface. There is an oblong loculated fluid collection along the subcutaneous fat deep to the skin opening measuring 8 cm in transverse dimension and a 1.8 cm in anterior-posterior dimension. 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 Spleen, pancreas, adrenal glands kidneys are within normal limits. 19 mm cyst is present posterior as pect of the right kidney. Moderate stool is present throughout the colon. The appendix is normal. No evidence of significant lymphadenopathy. Mild lumbar degenerative changes. 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
--- NOTE | 2022-03-01 13:11 | RAD REPORT ---
EXAM DESCRIPTION: RAD - Chest Single View - 03/01/2022 1:05 pm CLINICAL HISTORY: Cough Chest pain. COMPARISON: Abdomen 1 View (KUB) dated 02/02/2022; Chest Single View dated 07/24/2016; Chest Single Vi ew dated 12/23/2015; CHEST SINGLE VIEW dated 08/17/2014 FINDINGS: Portable technique limits examination quality. Small pleural effusions slightly greater on the right. Mild atelectasis in both lung bases. The heart is normal in size. No displaced fractures.
[2022-03-01] MEDS ORDERED: NA CHLORIDE 0.9% 1,000 ML ONE (13:46)
[2022-03-01] MEDS ORDERED: NA CHLORIDE 0.9% 100 ML ONE ×2 (13:47→18:12)
[2022-03-01] MEDS ORDERED: PIPERACIL/TAZO 3.375 GM VIAL IV ONE (13:47)
[2022-03-01] MEDS ORDERED: MORPHINE 4 MG/ML SYR ONE ×2 (14:11→16:37)
[2022-03-01] MEDS ORDERED: ONDANSETRON 4 MG/2 ML VIAL ONE ×2 (14:11→16:38)
--- NOTE | 2022-03-01 15:31 | EDPHYS ---
Physician Documentation [facility] Name: Minnie Flores Age: 66 yrs Sex: Female : 1955 Arrival Date: 03/01/2022 Time: 11:39 Bed 24 Private MD: ED Physician Tryese Ortega HPI: 03/01 15:49 This 66 yrs old Female presents to ER via Ambulatory with complaints of Abnormal Lab kdr Results. 15:49 Patient had some blood work done by her primary care physician. Patient is status post kdr perforated gastric ulcer repair. She has been feeling generally poorly all over but no nausea or vomiting or diarrhea. She denies fever. She has had drainage from her wound on her abdomen since surgery. Her abdominal pain and generalized malaise and achiness have progressed and worsened over time. She denies objective fever.. Onset: The symptoms/episode began/occurred gradually, 2 week(s) ago. Severity of symptoms: At their worst the symptoms were mild moderate just prior to arrival, in the emergency department the symptoms are unchanged. The patient has experienced a previous episode, The patient has experienced similar episodes in the past. The patient has been recently seen by a physician: the patient's primary care provider, PCP - . Patient was noted to have an elevated white count by their PCP and was sent to the ED for further evaluation. Patient states that she generally feels achy all over. Historical: - PMHx: 11:51 Bipolar disorder; Degenerative disc disease; Depression; Fibromyalgia; jh5 - Immunization history:: Adult Immunizations up to date. - Social history:: Smoking status: Patient denies any tobacco usage or history of. ROS: 15:49 Constitutional: Negative for fever, chills, and weight loss, Eyes: Negative for injury, kdr pain, redness, and discharge, ENT: Negative for injury, pain, and discharge, Neck: Negative for injury, pain, and swelling, Cardiovascular: Negative for chest pain, palpitations, and edema, Respiratory: Negative for shortness of breath, cough, wheezing, and pleuritic chest pain, Back: Negative for injury and pain, : Negative for injury, bleeding, discharge, and swelling, MS/Extremity: Negative for injury and deformity, Skin: Negative for injury, rash, and discoloration, Neuro: Negative for headache, weakness, numbness, tingling, and seizure activity. Psych: Negative for depression, anxiety, suicide ideation, homicidal ideation, and hallucinations, Allergy/Immunology: Negative for hives, rash, and allergies, Endocrine: Negative for neck swelling, polydipsia, polyuria, polyphagia, and marked weight changes, Hematologic/Lymphatic: Negative for swollen nodes, abnormal bleeding, and unusual bruising. 15:49 Abdomen/GI: Positive for General malaise and myalgias, Negative for vomiting, abdominal distension, anorexia, black/tarry stool, rectal pain, rectal bleeding, bowel incontinence. Exam: 13:18 ECG was reviewed by the Attending Physician. kdr 15:49 Constitutional: This is a well developed, well nourished patient who is awake, alert, kdr and in no acute distress. Head/Face: Normocephalic, atraumatic. Eyes: Pupils equal round and reactive to light, extra-ocular motions intact. Lids and lashes normal. Conjunctiva and sclera are non-icteric and not injected. Cornea within normal limits. Periorbital areas with no swelling, redness, or edema. Neck: Trachea midline, no thyromegaly or masses palpated, and no cervical lymphadenopathy. Supple, full range of motion without nuchal rigidity, or vertebral point tenderness. No Meningismus. Chest/axilla: Normal chest wall appearance and motion. Nontender with no deformity. No lesions are appreciated. Cardiovascular: Regular rate and rhythm with a normal S1 and S2. No gallops, murmurs, or rubs. Normal PMI, no JVD. No pulse deficits. Respiratory: Lungs have equal breath sounds bilaterally, clear to auscultation and percussion. No rales, rhonchi or wheezes noted. No increased work of breathing, no retractions or nasal flaring. Abdomen/GI: Soft, non-tender, with normal bowel sounds. No distension or tympany. No guarding or rebound. No evidence of tenderness throughout. Back: No spinal tenderness. No costovertebral tenderness. Full range of motion. MS/ Extremity: Pulses equal, no cyanosis. Neurovascular intact. Full, normal range of motion. Neuro: Awake and alert, GCS 15, oriented to person, place, time, and situation. Cranial nerves II-XII grossly intact. Motor strength 5/5 in all extremities. Sensory grossly intact. Cerebellar exam normal. Normal gait. Psych: Awake, alert, with orientation to person, place and time. Behavior, mood, and affect are within normal limits. 15:49 Skin: abscess, that is moderate sized, of the umbilical area, right upper quadrant and left upper quadrant, with drainage, that is purulent, with surrounding cellulitis, that is mild, cellulitis, that is minimal, that is mild. Vital Signs: 11:49 BP 123 / 63; Pulse 114; Resp 18; Temp 97.3; Pulse Ox 95% ; Weight 83.91 kg; Height 5 5 ft. 6 in. (167.64 cm); Pain 8/10; 13:30 BP 132 / 63; Pulse 107; Resp 16; Pulse Ox 97% on R/A; em6 15:30 BP 125 / 53; Pulse 94; Resp 12; Pulse Ox 98% ; em6 16:46 BP 117 / 56; Pulse 93; Resp 18; Pulse Ox 98% on R/A; em6 11:49 Body Mass Index 29.86 (83.91 kg, 167.64 cm) [facility] Procedures: 15:49 Performed Abscess drainage. With the use of a culture swab, perforated and made wide a kdr pre-existing small opening in the patient's abdomen in the middle of a draining wound. Once then occurred, the patient had copious foul-smelling cream-colored purulent material draining from the wound. Patient sick had significant drainage up to 30 to 40 cc of fluid that drained from the wound on the abscess. Patient tolerated well.. MDM: 13:09 Data reviewed: vital signs, nurses notes. ED course: On my initial evaluation, the kdr patient did not require the sepsis fluid bolus to support her vital signs and tissue perfusion.. 15:30 Patient medically screened. [facility] 03/01 12:00 Order name: Blood Culture Adult (2) [facility] 03/01 12:00 Order name: CBC with Diff; Complete Time: 13:12 [facility] 03/01 12:00 Order name: CMP; Complete Time: 13:12 [facility] 03/01 12:00 Order name: Lactate; Complete Time: 13:12 [facility] 03/01 12:00 Order name: Protime (+inr); Complete Time: 13:12 [facility] 03/01 12:00 Order name: Ptt, Activated; Complete Time: 13:12 [facility] 03/01 12:15 Order name: Wound Culture mb7 03/01 16:42 Order name: SARS RAPID ss 03/01 16:47 Order name: Lactate Sepsis 2 HR Follow-up; Complete Time: 18:26 EDMS 03/01 17:14 Order name: SARS-COV-2 Antigen Rapid; Complete Time: 18:26 EDMS 03/01 17:35 Order name: T4 Free; Complete Time: 18:26 EDMS 03/01 17:35 Order name: Thyroid Stimulating Hormone; Complete Time: 18:26 EDMS 03/01 18:01 Order name: Vancomycin Level Trough; Complete Time: 18:26 EDMS 03/02 02:59 Order name: CBC with Automated Diff EDMS 03/01 12:00 Order name: Chest Single View XRAY; Complete Time: 18:26 kdr 03/01 12:23 Order name: CT Abd/Pelvis - IV Contrast Only; Complete Time: 13:12 kdr 03/02 03:10 Order name: Basic Metabolic Panel EDMS 03/02 14:28 Order name: CT EDMS 03/03 05:05 Order name: Basic Metabolic Panel EDMN 03/03 05:22 Order name: Vancomycin Level Trough EDMS 03/03 05:24 Order name: Urinalysis EDMS 03/03 05:32 Order name: CBC with Automated Diff EDMS 03/03 06:34 Order name: Procalcitonin EDMN 03/01 12:00 Order name: Accucheck; Complete Time: 13:32 kdr 03/01 12:00 Order name: Cardiac monitoring; Complete Time: 13:32 kdr 03/01 12:00 Order name: EKG - Nurse/Tech; Complete Time: 13:32 [facility] 03/01 12:00 Order name: IV Saline Lock - Large Bore; Complete Time: 13:32 kdr 03/01 12:00 Order name: Labs collected and sent; Complete Time: 13:32 kdr 03/01 12:00 Order name: O2 Per Protocol; Complete Time: 13:32 kdr 03/01 12:00 Order name: O2 Sat Monitoring; Complete Time: 13:32 kdr 03/01 12:00 Order name: Urine Dipstick-Ancillary (obtain specimen); Complete Time: 08:11 kdr EC:18 Rate is 101 beats/min. Rhythm is regular, Sinus tachycardia with No ectopy. QRS [place] is kdr Normal. AL interval is normal. QRS interval is normal. QT interval is normal. Clinical impression: NSR w/ Non-specific ST/T Changes and Sinus tachycardia. Administered Medications: 12:32 Drug: Acetaminophen 1000 mg Route: PO; em6 13:00 Follow up: Response: No adverse reaction em6 13:40 Drug: Zosyn (piperacillin-tazobactam) 3.375 grams Route: IVPB; Infused Over: 60 mins; em6 Site: left wrist; 14:50 Follow up: Response: No adverse reaction; IV Status: Completed infusion; IV Intake: em6 100ml 13:40 Drug: NS 0.9% 1000 ml Route: IV; Rate: 1 bolus; Site: left wrist; em6 15:24 Follow up: Response: No adverse reaction; IV Status: Completed infusion; IV Intake: em6 1000ml 14:17 Drug: Zofran (Ondansetron) 4 mg Route: IVP; Site: left wrist; em6 15:10 Follow up: Response: No adverse reaction em6 14:17 Drug: morphine 4 mg Route: IVP; Infused Over: 4 mins; Site: left wrist; em6 15:00 Follow up: Response: No adverse reaction; RASS: Alert and Calm (0) em6 16:23 CANCELLED (Physician Discretion): morphine 4 mg IVP once over 4 mins em6 16:23 CANCELLED (Physician Discretion): Zofran (Ondansetron) 4 mg IVP once; over 2 minutes em6 16:30 Drug: morphine 4 mg Route: IVP; Infused Over: 4 mins; Site: left antecubital; em6 17:03 Follow up: Response: No adverse reaction; RASS: Alert and Calm (0) em6 16:30 Drug: Zofran (Ondansetron) 4 mg Route: IVP; Site: left wrist; em6 17:03 Follow up: Response: No adverse reaction em6 Disposition Summary: 03/01/22 15:30 Hospitalization Ordered Hospitalization Status: Observation kdr Provider: Cheng Beverly Condition: Fair kdr Problem: new kdr Symptoms: have improved kdr Bed/Room Type: Standard kdr Location: [facility] ER HOLD(03/01/22 22:31) cg Room Assignment: ERHOLD-(03/01/22 22:31) cg Diagnosis - Cutaneous abscess of abdominal wall kdr Forms: - Medication Reconciliation Form kdr - SBAR form kdr Signatures: Dispatcher [employer] EDMS Tyrese Ortega MD MD kdr Bhargavi Clark RN RN cg Lola Hernandez RN RN 5 Waleska Arizmendi PA PA sb3 Scarlet Sands RN RN em6 Corrections: (The following items were deleted from the chart) 11:52 11:51 Allergies: Prilosec; [place] [id number] 11:52 11:51 Allergies: Seroquel; [place] [id number] 16:23 16:23 morphine 4 mg IVP once over 4 mins ordered. em6 em6 16:23 16:23 Zofran (Ondansetron) 4 mg IVP once; over 2 minutes ordered. 6 em6 22:31 15:30 Telemetry/MedSurg (observation) [facility] 22:31 15:30 kdr cg
--- NOTE | 2022-03-01 15:31 | ER ---
Nurse's Notes [facility] Name: Minnie Flores Age: 66 yrs Sex: Female : 1955 Arrival Date: 03/01/2022 Time: 11:39 Bed 24 Private MD: Diagnosis: Cutaneous abscess of abdominal wall Presentation: 03/01 11:49 Chief complaint: Patient states: WBC is over 20k; surgery here 3 weeks on abdomen .. jh5 patient has wound to surgical site at right middle quad. Dr. Flores sent pt over today; 2 days ago pt put on amoxicillin and before that was on ciproflox. Coronavirus screen: Vaccine status: Patient reports receiving the 2nd dose of the covid vaccine. Client denies travel out of the [place] in the last 14 days. Ebola Screen: Patient negative for fever greater than or equal to 101.5 degrees Fahrenheit, and additional compatible Ebola Virus Disease symptoms Patient denies exposure to infectious person. Patient denies travel to an Ebola-affected area in the 21 days before illness onset. Initial Sepsis Screen: Does the patient meet any 2 criteria? Yes Does the patient have a suspected source of infection? Yes: Skin breakdown/wound. Risk Assessment: Do you want to hurt yourself or someone else? Patient reports no desire to harm self or others. Onset of symptoms was February 2022. 11:49 Method Of Arrival: Ambulatory [facility] 11:49 Acuity: AMY 2 [facility] Triage Assessment: 11:51 General: Appears uncomfortable, Behavior is calm, cooperative, appropriate for age. 5 Pain: Complains of pain in abdomen. Historical: - PMHx: 11:51 Bipolar disorder; Degenerative disc disease; Depression; Fibromyalgia; jh5 - Immunization history:: Adult Immunizations up to date. - Social history:: Smoking status: Patient denies any tobacco usage or history of. Screenin:58 Abuse screen: Denies threats or abuse. Denies injuries from another. Nutritional [facility] screening: No deficits noted. Tuberculosis screening: No symptoms or risk factors identified. 12:20 Fall Risk No fall in past 12 months (0 pts). No secondary diagnosis (0 pts). IV access em6 (20 points). Ambulatory Aid- None/Bed Rest/Nurse Assist (0 pts). Gait- Normal/Bed Rest/Wheelchair (0 pts) Mental Status- Oriented to own ability (0 pts). Total Chu Fall Scale indicates No Risk (0-24 pts). Assessment: 12:20 General: Appears in no apparent distress. comfortable, Behavior is calm, cooperative, em6 Denies fever. 12:20 Pain: Complains of pain in right lower quadrant Pain does not radiate. Pain currently em6 is 7 out of 10 on a pain scale. Neuro: Martinez Agitation-Sedation Scale (RASS): 0 - Alert and Calm Level of Consciousness is awake, alert, obeys commands, Oriented to person, place, time, situation. Cardiovascular: Heart tones present Capillary refill < 3 seconds Patient's skin is warm and dry. Respiratory: Airway is patent Respiratory effort is even, unlabored, Respiratory pattern is regular, symmetrical. GI: Abdomen is non-distended, Abd is soft and non tender Reports upper abdominal pain. : No signs and/or symptoms were reported regarding the genitourinary system. EENT: No signs and/or symptoms were reported regarding the EENT system. Derm: Wound noted umbilical area and right upper quadrant green drainage noted on the umbilicus. incision on the right lower quadrant is red and green drainage noted. Provider drained at bed side. applied dressing. site is dressed and dry. Musculoskeletal: No signs and/or symptoms reported regarding the musculoskeletal system. 13:20 Reassessment: Patient appears in no apparent distress at this time. No changes from em6 previously documented assessment. Patient and/or family updated on plan of care and expected duration. Pain level reassessed. 14:20 Reassessment: Patient appears in no apparent distress at this time. Patient and/or em6 family updated on plan of care and expected duration. Pain level reassessed. Reassessment: pain is stating a pain of 7 out of 10 due to her degenerative disc disease. provider notified . Pain: Complains of pain in back. 15:20 Reassessment: Patient appears in no apparent distress at this time. Patient and/or em6 family updated on plan of care and expected duration. Pain level reassessed. pain has improved. currently at a 3. 16:30 Reassessment: Patient appears in no apparent distress at this time. patient states em6 abdomen and back pain. notified doctor. . 03/02 04:51 Reassessment: c/o 9/10 back and abd pain "where the stitches are" Notified provider see aa9 SEP for orders. Vital Signs: 03/01 11:49 BP 123 / 63; Pulse 114; Resp 18; Temp 97.3; Pulse Ox 95% ; Weight 83.91 kg; Height 5 jh5 ft. 6 in. (167.64 cm); Pain 8/10; 13:30 BP 132 / 63; Pulse 107; Resp 16; Pulse Ox 97% on R/A; em6 15:30 BP 125 / 53; Pulse 94; Resp 12; Pulse Ox 98% ; em6 16:46 BP 117 / 56; Pulse 93; Resp 18; Pulse Ox 98% on R/A; em6 11:49 Body Mass Index 29.86 (83.91 kg, 167.64 cm) 5 ED Course: 11:39 Patient arrived in ED. rg4 11:50 Tyrese Ortega MD is Attending Physician. kdr 11:51 Triage completed. jh5 11:51 Arm band placed on right wrist. jh5 11:58 Patient has correct armband on for positive identification. Adult w/ patient. jh5 12:39 Inserted saline lock: 20 gauge in left forearm, using aseptic technique. Blood mb7 collected. 12:39 EKG done, by ED staff, reviewed by Tyrese Ortega MD. mb7 12:56 CT Abd/Pelvis - IV Contrast Only In Process Unspecified. EDMS 13:07 Chest Single View XRAY In Process Unspecified. EDMS 15:29 Cheng Beverly MD is Hospitalizing Provider. kdr 17:03 SARS RAPID Sent. em6 17:06 No provider procedures requiring assistance completed. Patient admitted, IV remains in em6 place. 03/02 19:27 Ella Christy, CHAPARRO is Primary Nurse. lc2 Administered Medications: 03/01 12:32 Drug: Acetaminophen 1000 mg Route: PO; em6 13:00 Follow up: Response: No adverse reaction em6 13:40 Drug: Zosyn (piperacillin-tazobactam) 3.375 grams Route: IVPB; Infused Over: 60 mins; em6 Site: left wrist; 14:50 Follow up: Response: No adverse reaction; IV Status: Completed infusion; IV Intake: em6 100ml 13:40 Drug: NS 0.9% 1000 ml Route: IV; Rate: 1 bolus; Site: left wrist; em6 15:24 Follow up: Response: No adverse reaction; IV Status: Completed infusion; IV Intake: em6 1000ml 14:17 Drug: Zofran (Ondansetron) 4 mg Route: IVP; Site: left wrist; em6 15:10 Follow up: Response: No adverse reaction em6 14:17 Drug: morphine 4 mg Route: IVP; Infused Over: 4 mins; Site: left wrist; em6 15:00 Follow up: Response: No adverse reaction; RASS: Alert and Calm (0) em6 16:23 CANCELLED (Physician Discretion): morphine 4 mg IVP once over 4 mins em6 16:23 CANCELLED (Physician Discretion): Zofran (Ondansetron) 4 mg IVP once; over 2 minutes em6 16:30 Drug: morphine 4 mg Route: IVP; Infused Over: 4 mins; Site: left antecubital; em6 17:03 Follow up: Response: No adverse reaction; RASS: Alert and Calm (0) em6 16:30 Drug: Zofran (Ondansetron) 4 mg Route: IVP; Site: left wrist; em6 17:03 Follow up: Response: No adverse reaction em6 Medication: 15:32 VIS not applicable for this client. em6 Intake: 14:50 IV: 100ml; Total: 100ml. em6 15:24 IV: 1000ml; Total: 1100ml. em6 Outcome: 15:30 Decision to Hospitalize by Provider. kdr 17:07 Admitted to ER Hold. Please see [facility] for further documentation. em6 17:07 Condition: stable 17:07 Instructed on the need for admit. 17:08 Patient left the ED. em6 03/03 16:11 Patient left the ED. tw2 Signatures: Dispatcher [employer] EDMS Tyrese Ortega MD MD kdr Cabug, Larilyn RN RN [email or web address] Michelle Case RN RN 2 Amanda Clark Jessica, RN RN 5 Nasrin Estrada Aylin, RN RN aa9 Scarlet aSnds RN RN em6 Corrections: (The following items were deleted from the chart) 03/01 11:52 11:51 Allergies: Prilosec; [place] [id number] 11:52 11:51 Allergies: Seroquel; [place] [address] 11:58 11:49 Resp 18bpm; Temp 97.3F; 83.91 kg; Height 5 ft. 6 in.; BMI: 29.8; Pain 8/10; [place] [address] 12:50 12:20 General: Appears in no apparent distress. comfortable, Behavior is calm, em6 cooperative, em6 17:03 16:30 Zofran (Ondansetron) 4 mg IVP in left antecubital em6 em6
[2022-03-01] MEDS ORDERED: ACETAMINOPHEN 500 MG TAB PO PRN (16:42)
--- NOTE | 2022-03-01 16:48 | P.HP ---
Certification for Inpatient Patient admitted to: Observation With expected LOS: <2 Midnights Patient will require the following post-hospital care: None Practitioner: I am a practitioner with admitting privileges, knowledge of patient current condition, hospital course, and medical plan of care. Services: Services provided to patient in accordance with Admission requirements found in Title 42 Section 412.3 of the Code of Federal Regulations Patient History Date of Service: 03/01/22 Reason for admission: Leukocytosis and abdominal pain. History of Present Illness: Patient is a 66-year-old female with a past medical history significant for obesity, bipolar disorder, depression, osteoarthritis, fibromyalgia, GERD who presented with complaint of abnormal labs and abdominal pain. Patient had perforated gastric ulcer repair 3 weeks ago and was discharged home when she became stable.. Patient reported that she has been having drainage from her abdominal incisions\wound since discharge. Patient is a poor historian and unable to provide accurate history. Patient also reported that she has been having abdominal pain located in the upper quadrants. Patient indicated that abdominal pain became worse over time. Patient rated pain as 8/10 in severity and described pain as sharp in quality. Patient reported associated signs and symptoms of generalized malaise. Patient denies any other signs and symptoms. Symptoms are aggravated by movement and relieved by nothing. Patient followed up with her PCP who did some lab work and patient's WBC was noted to be elevated. Patient was referred to the hospital for a higher level of care. Allergies omeprazole [From Prilosec] Allergy (Verified 07/25/16 05:39) Nausea/Vomiting aspartame Adverse Reaction (Verified 07/25/16 00:26) migraine Home Medications: Buspirone HCl [Buspar] 15 mg PO Q6HR 08/18/14 Hydrocodone/Acetaminophen [Hydrocodon-Acetaminophn 10-325] 10 - 325 mg PO Q6HR 08/18/14 Lurasidone HCl [Latuda] 120 mg PO DAILY 08/18/14 OXcarbazepine [Trileptal] 600 mg PO BID 08/18/14 SUMAtriptan succinate [Sumatriptan Succinate] 100 mg PO BID PRN 07/25/16 Ranitidine [Zantac*] 150 mg PO BID PRN MDD 300mg 02/02/22 Pantoprazole [Protonix Tab] 40 mg PO BID #60 tab 02/07/22 - Past Medical/Surgical History Diabetic: No -: degenerative disk -: fibromyalgia -: arthritis -: colitis -: depression -: gastric bypass -: Bi knee sx -: cholecystectomy -: bladder suspension Psychosocial/ Personal History: Patient is . - Family History Father -: Other (see notes) Notes: asbestosis, degenerative back disease Mother -: Diabetes, Cancer, Other (see notes) Notes: skin ca, dementia - Social History Alcohol use: No CD- Drugs: No Caffeine use: Yes Place of Residence: Home Physical Examination - Physical Exam General: Alert, Oriented x3, Cooperative, Other (Generalized malaise) HEENT: Atraumatic, Normocephalic, PERRLA Neck: Supple, 2+ carotid pulse no bruit Respiratory: Clear to auscultation bilaterally, Normal air movement Cardiovascular: No edema, Normal pulses, Regular rate/rhythm Capillary refill: <2 Seconds Gastrointestinal: Normal bowel sounds, Other (Abdominal wounds\incision with drainage.), Tenderness Musculoskeletal: No clubbing, No swelling, No contractures Integumentary: Other (Abdominal distention) Neurological: Normal gait, Normal speech, Normal tone, Sensation intact Lymphatics: No axilla or inguinal lymphadenopathy - Studies Laboratory Data (last 24 hrs) 03/01/22 12:34: PT 13.5 H, INR 1.22, APTT 30.3 03/01/22 12:34: Sodium 134 L, Potassium 4.1, BUN 12, Creatinine 0.91, Glucose 114 H, Total Bilirubin 0.2, AST 16, ALT 12, Alkaline Phosphatase 112 03/01/22 12:34: WBC 16.90 H, Hgb 8.9 L, Hct 27.2 L, Plt Count 668 H Assessment and Plan - Plan --Abdominal pain. Status post Tucker patch for perforated gastric ulcer. 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 Surgeon consulted. Wound cultures pending. Patient placed on antibiotics. We will await further recommendation from surgeon. --Leukocytosis. Blood cultures pending. Continue antibiotics. --Acute pain\fibromyalgia\osteoarthritis. We will manage pain with current pain medication regimen. -- Abdominal wounds. We will get wound care on board. --Anemia of chronic disease. H&H stable. We will continue to monitor hemoglobin and transfuse if less than 7.0. --Obesity. Likely secondary to excess calories intake. Patient counseled on weight reduction, diet and assessed therapy. --GERD. Continue Protonix --Depression\bipolar disorder. Continue home medication. --DVT prophylaxis with Lovenox subQ. Discharge Plan: Home Plan to discharge in: 48 Hours - Advance Directives Does patient have a Living Will: No Does patient have a Durable POA for Healthcare: Yes - Code Status/Comfort Care Code Status Assessed: Yes Code Status: Full Code Physician Review: Patient Assessed, Agree with Above Assessment and Plan Critical Care: No
[2022-03-01] MEDS ORDERED: VANCOMYCIN 1 GM in NA CHLORIDE 0.9% 250 ML IVPB SCH (17:09)
[2022-03-01] MEDS ORDERED: SUMATRIPTAN SUCCINATE 100 MG PO PRN (17:11)
[2022-03-01] MEDS ORDERED: RANITIDINE 150 MG PO PRN (17:11)
[2022-03-01 17:13] LABS: SARS-CoV-2 Antigen Rapid Res Negative (Negative)
[2022-03-01] MEDS ORDERED: SUMATRIPTAN SUCCI 50 MG TAB PO PRN (17:16)
[2022-03-01 17:34] LABS: Thyroid Stimulating Hormone 0.991 uIU/mL (0.360-3.740)
[2022-03-01] MEDS ORDERED: VANCOMYCIN 1 GM/VIAL ONE (17:34)
[2022-03-01] MEDS ORDERED: NA CHLORIDE 0.9% 250 ML ONE (17:34)
[2022-03-01] MEDS ORDERED: VANCOMYCIN 500 MG in NA CHLORIDE 0.9% 100 ML IVPB SCH (18:00)
[2022-03-01] MEDS: BUSPIRONE HCL 15 MG TABLET PO SCH (18:00)
[2022-03-01] MEDS: CEFEPIME 1 GM in NA CHLORIDE 0.9% 100 ML IV SCH (18:00)
[2022-03-01] MEDS: HYDROCODONE/APAP 10/325 TAB PO PRN (18:10)
[2022-03-01] MEDS ORDERED: CEFEPIME 1 GM/VIAL ONE (18:11)
[2022-03-01] MEDS ORDERED: HYDROCODONE/APAP 10/325 TAB ONE (18:39)
--- NOTE | 2022-03-01 19:08 | P.CNS ---
Date of Consult: 03/01/22 PC: This 66-year-old female presented to the emergency room with right-sided abdominal pain for diagnosis and treatment. HPC: 4 weeks ago patient underwent an exploratory laparotomy with a Tucker patch for perforated gastric ulcer. The patient has had a previous Samantha-en-Y done for weight loss. PSHx: Samantha-en-Y surgery PMHx: Gastritis, fibromyalgia, and back pain of unknown origin Social Hx: Patient is allergic to omeprazole and is part of been Sys R: No cough, wheeze, shortness of breath. No chest pain or palpitations. Has not been taking any anti-inflammatories, and her is now in charge of all medications she takes. O/E: Awake alert vital signs are stable HEENT: Negative Chest: Air entry equal bilaterally Abd: At the site of her previous drain site in the right upper portion of her abdomen there is some chronic granulation tissue seen. [The ER physician pressed on this earlier and approximately 30 cc of purulent material was obtained. It was clear white in nature.] [place]: Intact Data: Elevated white cell count, serum albumin 2.7. CT scan demonstrates inflammatory process extending from area where the ulcer had been patched before, to the outside. Impression: This has been described as a gastrocutaneous fistula. This is also the track where our a Hernandez-Sullivan drain was in place. Plan: The patient has been admitted at this time for observation, electrolyte control, and IV antibiotics. We will reassess her in the a.m. I do not feel this needs to be operated on at the moment, as it is controlled and is not leaking freely into the peritoneal cavity. This may just be an infected VITO drain site. If it is a true fistula, will most likely close spontaneously.
[2022-03-01] MEDS: OXCARBAZEPINE 600 MG PO SCH (21:00)
[2022-03-01] MEDS: PANTOPRAZOLE 40MG TABLET PO SCH (21:01)
[2022-03-01] MEDS: ENOXAPARIN 40 MG/0.4 ML SQ SCH (21:01)
[2022-03-01] MEDS ORDERED: PANTOPRAZOLE 40MG TABLET PO ONE (21:08)
[2022-03-01] MEDS ORDERED: ENOXAPARIN 40 MG/0.4 ML SQ ONE (21:09)
[2022-03-01] MEDS ORDERED: MORPHINE 2 MG/ML SYR ONE (21:09)
[2022-03-01] MEDS: MORPHINE 2 MG/ML SYR IV PRN (21:22)
[2022-03-02] MEDS: BUSPIRONE HCL 15 MG TABLET PO SCH ×4 (00:36→17:22)
[2022-03-02] MEDS: CEFEPIME 1 GM in NA CHLORIDE 0.9% 100 ML IV SCH ×3 (00:37→17:00)
[2022-03-02] MEDS: MORPHINE 2 MG/ML SYR IV PRN ×5 (00:37→21:15)
[2022-03-02] MEDS ORDERED: MORPHINE 2 MG/ML SYR ONE ×5 (00:41→20:14)
[2022-03-02] MEDS ORDERED: CEFEPIME 1 GM/VIAL ONE ×3 (00:45→17:23)
[2022-03-02] MEDS ORDERED: NA CHLORIDE 0.9% 100 ML ONE ×3 (00:45→17:22)
[2022-03-02 02:55] LABS: Absolute Lymphocytes (CBC) 2.7 K/uL (0.7-4.9); Hematocrit 24.4 % (36.0-45.0); Lymphocytes % 23.1 % (15.3-44.8); MCV 84.8 fL (80-100); MPV 6.8 fL (7.6-11.3); RBC Red Blood Cell Count 2.87 M/uL (3.86-4.86)
[2022-03-02 02:59] LABS: Potassium 4.2 mmol/L (3.5-5.1)
[2022-03-02] MEDS: HYDROCODONE/APAP 10/325 TAB PO PRN ×3 (04:58→22:30)
[2022-03-02] MEDS ORDERED: HYDROCODONE/APAP 10/325 TAB ONE ×4 (05:07→22:38)
[2022-03-02] MEDS: ONDANSETRON 4 MG/2 ML VIAL IV PRN ×2 (07:48→14:22)
[2022-03-02] MEDS ORDERED: ONDANSETRON 4 MG/2 ML VIAL ONE ×2 (07:51→14:26)
[2022-03-02] MEDS: OXCARBAZEPINE 600 MG PO SCH ×2 (09:00→21:00)
[2022-03-02] MEDS: LURASIDONE HCL 80 MG PO SCH (09:00)
[2022-03-02] MEDS: ASPIRIN EC 81 MG TAB PO SCH (09:00)
[2022-03-02] MEDS: PANTOPRAZOLE 40MG TABLET PO SCH ×2 (09:32→21:00)
[2022-03-02] MEDS ORDERED: ASPIRIN EC 81 MG TAB PO ONE (09:33)
[2022-03-02] MEDS ORDERED: PANTOPRAZOLE 40MG TABLET PO ONE ×2 (09:35→22:11)
[2022-03-02] MEDS: VANCOMYCIN 1.5 GM in NA CHLORIDE 0.9% 500 ML IVPB SCH (12:00)
--- NOTE | 2022-03-02 12:34 | P.DS ---
Discharge Date: 03/02/22 Disposition: ROUTINE DISCHARGE Discharge Condition: GOOD Reason for Admission: Leukocytosis and abdominal pain. Brief History of Present Illness: Patient is a 66-year-old female with a past medical history significant for obesity, bipolar disorder, depression, osteoarthritis, fibromyalgia, GERD who presented with complaint of abnormal labs and abdominal pain. Patient had perforated gastric ulcer repair 3 weeks ago and was discharged home when she became stable.. Patient reported that she has been having drainage from her abdominal incisions\wound since discharge. Patient is a poor historian and unable to provide accurate history. Patient also reported that she has been having abdominal pain located in the upper quadrants. Patient indicated that abdominal pain became worse over time. Patient rated pain as 8/10 in severity and described pain as sharp in quality. Patient reported associated signs and symptoms of generalized malaise. Patient denies any other signs and symptoms. Symptoms are aggravated by movement and relieved by nothing. Patient followed up with her PCP who did some lab work and patient's WBC was noted to be elevated. Patient was referred to the hospital for a higher level of care. Vital Signs/Physical Exam: Temp Pulse Resp BP Pulse Ox 97.2 F 82 14 127/53 L 98 03/02/22 04:00 03/02/22 08:00 03/02/22 10:54 03/02/22 08:00 03/02/22 10:54 General: Alert, In no apparent distress, Oriented x3 Laboratory Data at Discharge: WBC 11.50 K/uL (4.3-10.9) H D 03/02/22 02:08 Hgb 8.1 g/dL (12.0-15.0) L 03/02/22 02:08 Hct 24.4 % (36.0-45.0) L 03/02/22 02:08 Plt Count 558 K/uL (152-406) H 03/02/22 02:08 PT 13.5 SECONDS (9.5-12.5) H 03/01/22 12:34 INR 1.22 03/01/22 12:34 APTT 30.3 SECONDS (24.3-36.9) 03/01/22 12:34 Sodium 138 mmol/L (136-145) 03/02/22 02:08 Potassium 4.2 mmol/L (3.5-5.1) 03/02/22 02:08 BUN 9 mg/dL (7-18) 03/02/22 02:08 Creatinine 0.73 mg/dL (0.55-1.3) 03/02/22 02:08 Glucose 104 mg/dL (74-106) 03/02/22 02:08 Total Bilirubin 0.2 mg/dL (0.2-1.0) 03/01/22 12:34 AST 16 U/L (15-37) 03/01/22 12:34 ALT 12 U/L (12-78) 03/01/22 12:34 Alkaline Phosphatase 112 U/L (45-117) 03/01/22 12:34 Home Medications: Buspirone HCl [Buspar] 15 mg PO Q6HR 08/18/14 Hydrocodone/Acetaminophen [Hydrocodon-Acetaminophn 10-325] 10 - 325 mg PO Q6HR 08/18/14 Lurasidone HCl [Latuda] 120 mg PO DAILY 08/18/14 OXcarbazepine [Trileptal] 600 mg PO BID 08/18/14 SUMAtriptan succinate [Sumatriptan Succinate] 100 mg PO BID PRN 07/25/16 Ranitidine [Zantac*] 150 mg PO BID PRN MDD 300mg 02/02/22 Pantoprazole [Protonix Tab*] 40 mg PO BID #60 tab 02/07/22 Hydrocodone 10/APAP 325 [[place] 10/325*] 1 tab PO Q12H PRN #30 tab 03/02/22 Minocycline HCl 100 mg PO BID #20 03/02/22 Smz./Tmp. [Bactrim Ds 800 MG/160 MG] 1 tab PO BID #20 tab 03/02/22 New Medications: Smz./Tmp. [Bactrim Ds 800 MG/160 MG] 1 tab PO BID #20 tab Minocycline HCl 100 mg PO BID #20 Hydrocodone 10/APAP 325 [[place] 10/325*] 1 tab PO Q12H PRN #30 tab PRN Reason: Pain Scale 5-7 (Moderate) Physician Discharge Instructions: OK TO DC IV AND DC HOME FOLLOW-UP WITH PRIMARY CARE PROVIDER IN 1-2 WEEKS FOLLOW-UP WITH SURGERY IN 1 WEEK RETURN TO THE ER IF symptoms worsens CALL DR. DOCKERY AT [phone] IF ANY QUESTIONS REGARDING HOSPITAL STAY. PLEASE CALL THE FLOOR AT [phone] IF ANY MEDICATION OR NURSING QUESTIONS. Diet: Regular Activity: Fall precautions Followup: NONE,NONE [Primary Care Provider] - Time spent managing pt's care (in minutes): 35
--- NOTE | 2022-03-02 14:26 | RAD REPORT ---
EXAM DESCRIPTION: CTAbdomen Wo Contrast - 03/02/2022 2:07 pm CLINICAL HISTORY: gastrograffin study to cofirm fistula COMPARISON: Abdomen Pelvis W Contrast dated 03/01/2022; Abdomen Pelvis W Contrast dated 02/01/2022 TECHNIQUE: CT of the abdomen was performed. All CT scans are performed using dose optimization technique as appropriate and may include automated exposure control or mA/KV adjustment according to patient size. FINDINGS: Lower chest: Small pleural effusions and likely underlying atelectasis. Coronary artery ca lcifications. Liver: No acute abnormality or suspicious lesions. Biliary: Extrahepatic biliary ductal dilatation is similar. Cholecystectomy. Stomach: Status post Samantha-en-Y gastric bypass. The suspected fistula at the gastric antrum hazy in th e excluded portion of the stomach. There is still a possible gastrocutaneous fistula. Duodenum: No significant focal abnormality. Pancreas: No significant abnormality. Spleen: No significant abnormality. Adrenal: No suspicious lesions. Kidney/ureter: No hydronephrosis. No renal calculi. Low-density right renal lesion which is statistic ally benign. Retroperitoneum: No retroperitoneal adenopathy. Vascular: No aneurysm. Bowel: No significant focal abnormality. Peritoneum: No ascites or free air. Bones: No acute fracture. Other: Collection fluid in the abdominal wall measures 7.4 x 2.3 cm. This is grossly similar in size to prior . IMPRESSION: Similar findings of possible gastrocutaneous fistula in the right upper quadrant. As the suspected fistula arises from the excluded portion of the stomach, the administered contrast bypasse d the area of concern and so evaluation remains limited.
--- NOTE | 2022-03-02 15:43 | EKG ---
Test Date: 2022-03-01 Test Time: 12:28:27 [employer]: MB MEASUREMENT RESULTS: Intervals: Rate: 101 NV: 160 QRSD: 84 QT: 346 QTc: 448 [place]: P: 61 NV: 160 QRS: 39 T: 8 INTERPRETIVE STATEMENTS: Sinus tachycardia Low voltage QRS Cannot rule out Anterior infarct, age undetermined Abnormal ECG Compared to ECG 05/25/2020 11:35:53 Low QRS voltage now present Sinus rhythm no longer present Myocardial infarct finding still present Electronically Signed On 03-02-22 15:42:11 CDT by Fausto Vo
[2022-03-02 16:45] VITALS: BMI 28.8
[2022-03-02] MEDS: ENOXAPARIN 40 MG/0.4 ML SQ SCH (17:00)
[2022-03-02] MEDS ORDERED: ENOXAPARIN 40 MG/0.4 ML SQ ONE (17:22)
[2022-03-02] MEDS ORDERED: VANCOMYCIN 1.5 GM in NA CHLORIDE 0.9% 500 ML IVPB SCH (18:00)
[2022-03-03] MEDS: CEFEPIME 1 GM in NA CHLORIDE 0.9% 100 ML IV SCH ×2 (00:30→09:00)
[2022-03-03] MEDS: MORPHINE 2 MG/ML SYR IV PRN ×3 (00:32→08:48)
[2022-03-03] MEDS ORDERED: NA CHLORIDE 0.9% 100 ML ONE ×2 (00:33→07:58)
[2022-03-03] MEDS ORDERED: MORPHINE 2 MG/ML SYR ONE ×3 (00:33→08:54)
[2022-03-03] MEDS ORDERED: CEFEPIME 1 GM/VIAL ONE ×2 (00:34→07:58)
[2022-03-03 05:05] LABS: Potassium 3.9 mmol/L (3.5-5.1)
[2022-03-03 05:22] LABS: Absolute Lymphocytes (CBC) 2.5 K/uL (0.7-4.9); Hematocrit 24.6 % (36.0-45.0); Lymphocytes % 23.3 % (15.3-44.8); MPV 6.6 fL (7.6-11.3)
[2022-03-03 05:24] LABS: Specific Gravity 1.015 (1.005-1.030); Urine Bilirubin Negative (Negative); Urine Blood Negative (Negative); Urine Clarity Clear (Clear); Urine Color Yellow (Yellow); Urine Glucose Negative (Negative); Urine Protein Negative (Negative); Urine Urobilinogen 0.2 mg/dL (0.2-1.0)
[2022-03-03] MEDS: BUSPIRONE HCL 15 MG TABLET PO SCH ×3 (06:04→11:57)
[2022-03-03] MEDS: VANCOMYCIN 1.5 GM in NA CHLORIDE 0.9% 500 ML IVPB SCH (06:04)
[2022-03-03] MEDS: HYDROCODONE/APAP 10/325 TAB PO PRN ×2 (06:05→12:31)
[2022-03-03] MEDS ORDERED: VANCOMYCIN 1 GM/VIAL ONE (06:07)
[2022-03-03] MEDS ORDERED: NA CHLORIDE 0.9% 500 ML ONE (06:08)
[2022-03-03] MEDS ORDERED: VANCOMYCIN 500 MG/VIAL ONE (06:08)
[2022-03-03] MEDS ORDERED: HYDROCODONE/APAP 10/325 TAB ONE ×2 (06:12→12:37)
[2022-03-03] MEDS ORDERED: ASPIRIN EC 81 MG TAB PO ONE (07:58)
[2022-03-03] MEDS ORDERED: PANTOPRAZOLE 40MG TABLET PO ONE (07:58)
[2022-03-03] MEDS: ASPIRIN EC 81 MG TAB PO SCH (08:01)
[2022-03-03] MEDS: LURASIDONE HCL 80 MG PO SCH (08:07)
[2022-03-03] MEDS: PANTOPRAZOLE 40MG TABLET PO SCH (08:08)
[2022-03-03] MEDS ORDERED: OXcarbazepine 150 MG TAB PO SCH (09:00)
--- NOTE | 2022-03-03 12:25 | P.PN ---
Subjective Date of Service: 03/02/22 Subjective: No new changes, No C/O voiced, Improving Review of Systems 10-point ROS is otherwise unremarkable Physical Examination - Vital Signs Temperature: 98.4 F Blood Pressure: 115/55 Pulse: 84 Respirations: 14 Pulse Ox (%): 96 - Physical Exam General: Alert, In no apparent distress, Oriented x3 Respiratory: Clear to auscultation bilaterally, Normal air movement Cardiovascular: Regular rate/rhythm, Normal S1 S2, No murmurs Gastrointestinal: Normal bowel sounds, Soft and benign, Non-distended, No tenderness, Other (dressing intact) Musculoskeletal: No clubbing, No swelling, No tenderness Integumentary: Tenderness/swelling, Erythema, Warmth Neurological: Sensation intact, Cranial nerves 3-12 intact - Studies Microbiology Data (last 24 hrs): 03/01/22 12:28 Wound - Abdomen Gram Stain - Final 03/01/22 12:28 Wound - Abdomen Culture & Sensitivity - Final No growth. Medications List Reviewed: Yes Assessment & Plan - Problems (Diagnosis) (1) Cutaneous abscess of abdominal wall Current Visit: Yes Status: Acute - Plan PLAN: 1. Continue with IV antibiotic 2. Continue with local wound care 3. Continue with outpatient wound care consultation/surgical consultation 4. Hep-Lock IV 5. White blood cell count stable 6. Strict blood sugar monitoring 7. Pain control 8. GI and DVT prophylaxis Discharge Plan: Home Plan to discharge in: 24 Hours - Advance Directives Does patient have a Living Will: No Does patient have a Durable POA for Healthcare: Yes - Code Status/Comfort Care Code Status: Full Code Physician Review: Patient Assessed, Agree with Above Assessment and Plan Critical Care: No Time Spent Managing PTS Care (In Minutes): 25
[2022-03-03] MEDS ORDERED: SMZ./TMP. 800/160 MG TABLET ONE (12:37)
--- NOTE | 2022-03-03 12:38 | P.DS ---
Discharge Date: 03/03/22 Disposition: ROUTINE DISCHARGE Discharge Condition: GOOD Reason for Admission: Leukocytosis and abdominal pain. - Problems (1) Cutaneous abscess of abdominal wall Current Visit: Yes Status: Acute Brief History of Present Illness: Patient is a 66-year-old female with a past medical history significant for obesity, bipolar disorder, depression, osteoarthritis, fibromyalgia, GERD who presented with complaint of abnormal labs and abdominal pain. Patient had perforated gastric ulcer repair 3 weeks ago and was discharged home when she became stable.. Patient reported that she has been having drainage from her abdominal incisions\wound since discharge. Patient is a poor historian and unable to provide accurate history. Patient also reported that she has been having abdominal pain located in the upper quadrants. Patient indicated that abdominal pain became worse over time. Patient rated pain as 8/10 in severity and described pain as sharp in quality. Patient reported associated signs and symptoms of generalized malaise. Patient denies any other signs and symptoms. Symptoms are aggravated by movement and relieved by nothing. Patient followed up with her PCP who did some lab work and patient's WBC was noted to be elevated. Patient was referred to the hospital for a higher level of care. Hospital Course: Patient is clinically doing well. Patient with no new complaints. Patient is wanting to go home at this time. We will speak with general surgery and possible discharge home later today. Patient has home health arranged. Patient will follow up with home health and general surgery for wound care. Continue with antibiotics for 7-10 more days. Vital Signs/Physical Exam: Temp Pulse Resp BP Pulse Ox 98.4 F 84 14 115/55 L 96 03/03/22 12:37 03/03/22 12:37 03/03/22 12:37 03/03/22 12:37 03/03/22 12:37 General: Alert, In no apparent distress, Oriented x3 Laboratory Data at Discharge: WBC 10.60 K/uL (4.3-10.9) 03/03/22 04:40 Hgb 8.1 g/dL (12.0-15.0) L 03/03/22 04:40 Hct 24.6 % (36.0-45.0) L 03/03/22 04:40 Plt Count 641 K/uL (152-406) H 03/03/22 04:40 PT 13.5 SECONDS (9.5-12.5) H 03/01/22 12:34 INR 1.22 03/01/22 12:34 APTT 30.3 SECONDS (24.3-36.9) 03/01/22 12:34 Sodium 140 mmol/L (136-145) 03/03/22 04:40 Potassium 3.9 mmol/L (3.5-5.1) 03/03/22 04:40 BUN 8 mg/dL (7-18) 03/03/22 04:40 Creatinine 0.70 mg/dL (0.55-1.3) 03/03/22 04:40 Glucose 106 mg/dL (74-106) 03/03/22 04:40 Total Bilirubin 0.2 mg/dL (0.2-1.0) 03/01/22 12:34 AST 16 U/L (15-37) 03/01/22 12:34 ALT 12 U/L (12-78) 03/01/22 12:34 Alkaline Phosphatase 112 U/L (45-117) 03/01/22 12:34 Home Medications: Buspirone HCl [Buspar] 15 mg PO Q6HR 08/18/14 Hydrocodone/Acetaminophen [Hydrocodon-Acetaminophn 10-325] 10 - 325 mg PO Q6HR 08/18/14 Lurasidone HCl [Latuda] 120 mg PO DAILY 08/18/14 OXcarbazepine [Trileptal] 600 mg PO BID 08/18/14 SUMAtriptan succinate [Sumatriptan Succinate] 100 mg PO BID PRN 07/25/16 Ranitidine [Zantac*] 150 mg PO BID PRN MDD 300mg 02/02/22 Pantoprazole [Protonix Tab*] 40 mg PO BID #60 tab 02/07/22 Hydrocodone 10/APAP 325 [[place] 10/325*] 1 tab PO Q12H PRN #30 tab 03/02/22 Minocycline HCl 100 mg PO BID #20 03/02/22 Smz./Tmp. [Bactrim Ds 800 MG/160 MG] 1 tab PO BID #20 tab 03/02/22 New Medications: Smz./Tmp. [Bactrim Ds 800 MG/160 MG] 1 tab PO BID #20 tab Minocycline HCl 100 mg PO BID #20 Hydrocodone 10/APAP 325 [[place] 10/325*] 1 tab PO Q12H PRN #30 tab PRN Reason: Pain Scale 5-7 (Moderate) Physician Discharge Instructions: OK TO DC IV AND DC HOME FOLLOW-UP WITH PRIMARY CARE PROVIDER IN 1-2 WEEKS FOLLOW-UP WITH SURGERY IN 1 WEEK RETURN TO THE ER IF symptoms worsens CALL DR. DOCKERY AT [phone] IF ANY QUESTIONS REGARDING HOSPITAL STAY. PLEASE CALL THE FLOOR AT [phone] IF ANY MEDICATION OR NURSING QUESTIONS. Diet: Regular Activity: Fall precautions Followup: NONE,NONE [Primary Care Provider] - Time spent managing pt's care (in minutes): 35
[2022-03-03] MEDS ORDERED: SMZ./TMP. 800/160 MG TABLET PO SCH (13:00)
[2022-03-03 17:17] VITALS: TEMP 97.3
[2022-03-03 17:21] VITALS: O2SAT 98
[2022-03-03 17:23] VITALS: BP 117/56
== END 2022-03-03 16:11 | disposition home health service (06) ==
LOC: ER 11:37 → ERHOLD 16:35
PROVIDERS: ADMIT Hospitalist; ATTEND Hospitalist
PROC: 0J980ZZ Drainage of Abdomen Subcutaneous Tissue and Fascia, Open Approach (ICD-10-PCS; principal; 2022-03-01)
DX: L02.211 Cutaneous abscess of abdominal wall (principal); K31.6 Fistula of stomach and duodenum; D63.8 Anemia in other chronic diseases classified elsewhere; M79.7 Fibromyalgia; K21.9 Gastro-esophageal reflux disease without esophagitis; E66.9 Obesity, unspecified; F31.9 Bipolar disorder, unspecified; M19.90 Unspecified osteoarthritis, unspecified site; Z98.84 Bariatric surgery status; Z68.29 Body mass index [BMI] 29.0-29.9, adult; Z20.822 Contact with and (suspected) exposure to COVID-19
CPT/HCPCS: 36415; 71045; 74150; 74177; 80048; 80053; 80202; 81003; 83605; 84145; 84439; 84443; 85025; 85610; 85730; 87040; 87070; 87205; 87811; 93005; 99285; G0378; J0692; J1650; J2270; J2405; J2543; J3370; J7030; J7040; J7050; Q9967

== ENCOUNTER 2022-03-05 13:24 | Inpatient (IN) | payer OTHER ==
--- OUTSIDE RECORDS SUMMARY | 2022-03-05 13:36 | XMS REPORT | Continuity of Care Document ---
:1955 Author Organization [facility] t Address [address] [place] [address] Care Team Providers Name Role Phone Ildefonso Bauer MD Primary Care Physician [phone] JENSEN JOY Attending Clinician Unavailable ILDEFONSO BAUER Attending Clinician Unavailable ANTIONETTE SHEETS Attending Clinician Unavailable ROSSY SOLORIO Attending Clinician Unavailable ELIAN OLIVER Attending Clinician Unavailable FARTUN TUCKER Attending Clinician Unavailable [facility] Attending Clinician Unavailable [facility] Attending Clinician Unavailable Ildefonso Bauer MD Attending Clinician [phone] Jensen Joy MD Attending Clinician BEN [...] Clinician Natanael CROSS, Jose Davis Attending Clinician [phone] Blanco Hickman DO Attending Clinician Unavailable Sarahi CROSS, Asad Attending Clinician Buddy CROSS, Rae Verdugo Attending Clinician NALLELY AYON Attending Clinician Unavailable JOSE SANTOYO Admitting Clinician Unavailable Payers Payer Name Policy Type Policy Number Effective Date Expiration Date Carly jacob FClub [id number] 2021 CLASSIC NO PREMIUM 00:00:00 T FClub [id number] [id number] 2018 00:00:00 Problems Condition Condition Condition Status [...] Disease Active C [facility] 11[facility]06 [facility], fistula, 00:[facility]: Medica l per per 00 Center 10-30-2020 10-30-2020 CT-scan CT-scan Abscess of Abscess of Disease Active Overview [facility] 10-30 Formattin L ukes wall wall 00:00: g of this Medical 00 note Center might be different from the original. 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 00:00: 00 Other long Other Diagnosis Active 2021-11-04 [facility] term nursing home 02:45:30 l (current) (current) Herm flynn drug drug therapy therapy Active Diagnosis 11/04/2021 [facility] Insomnia Insomnia Problem Active 2021-11-04 Memoria due to due to 02:45:30 l other other [place] mental mental disorder disorder Active Problem 11/04/2021 [facility] Anxiety Anxiety Problem Active 2021-11-04 Me moria disorder, disorder, 02:45:30 l unspecifie unspecifie He rmann d d Active Problem 11/04/2021 [facility] Bipolar Bipolar Problem Active 2021-11-04 Me moria disorder, disorder, 02:45:30 l current current Félix episode episode depressed, depressed, moderate moderate Active Problem 11/04/2021 [facility] Unspecifie Unspecifi Diagnosis Active 2020-02-25 Memoria d bipolar ed bipolar 02:46:24 l and and [place] related related disorder disorder Active Diagnosis 02/25/2020 [facility] Allergies, Adverse Reactions, Alerts Allergy Allergy Status Severity Reaction(s) Onset Inactive Treating Comm ents Source Name Type Date Date Clinician Seroquel Seroquel Active impairs Memor ia sleep 4-27 l 00:00: [place] 00 Omeprazo Omeprazo Active throat swell Memoria le le and bleed 4-27 l 00:00: Félix 00 Aspartam Aspartam Active migraines Mem oria e e 4-27 l 00:00: HYPNOTIC HYPNOTIC Active migraines Mem oria S S 4-27 l 00:00: Seroquel Seroquel Active impairs Memor ia sleep 7-30 l 00:00: Omeprazo Omeprazo Active throat swell Memoria le le and bleed 7-30 l 00:00: Aspartam Aspartam Active migraines Mem oria e e 7-30 l 00:00: HYPNOTIC HYPNOTIC Active migraines Mem oria S S 7-30 l 00:00: No Known DA Active U [facility]- [facility] [place] [facility] 00:[facility]: [facility] [address] [facility] [address] omeprazo DA Active SV 2019- [facility] le 0-24 [place] 00:00: [facility] [address] [facility] [address] quetiapi DA Active SV 2019-1 [facility] ne 0-24 [place] 00:00: [facility] 00 are [facility] No Known DA Active U 2019- [facility] Allergie 0-24 [place] [facility] 00:00: [facility] [address] [facility] [address] omeprazo DA Active SV ANAPHYLAXIS 2020- [facility] le 0-24 [place] 00:00: [facility] [address] [facility] [address] quetiapi DA Active SV ABNORMAL 2020- [facility] ne DREAMS 0-24 [place] 00:00: [facility] [address] [facility] [address] Omeprazo Propensi Active Swelling [facility] 07[facility] adverse 00:[facility]: Medical reaction 00 Center s Quetiapi Propensi Active Other (See faint [facility] to Comments) 07-25 [facility] adverse 00:[facility]: Medical reaction 00 Center s OMEPRAZO Allergy Active Swelling 2018- [facility] LE 07-25 00:00: 00 QUETIAPI Allergy Active Other 2018- [facility] NE 07-25 00:00: 00 Aspartam Drug Active 2016-[address] [facility] [facility] Allergy 08-02 reaction( [facility] 00:[facility]: s[facility] Medical 00 migraines Center , OtherHead aches - triggers migraines Aspartam Propensi Active Other 2016-07 Headaches Matt sey e ty to 08-02 - Seybold adverse 00:00: triggers reaction 00 migraines s ASPARTAM Allergy Active 2016-[address] [facility] 08-02 [facility] Center Omeprazo Drug Active Swelling 2014-07 Tongue Mayra le Allergy - swelling Seybold 00:00: and gum 00 bleeding Quetiapi Drug Active Mayra ne Intolera 12-01 Seybold Fumarate nce 00:00: 00 Social History Social Habit Start Date Stop Date Quantity Comments Source Exposure to Not sure aMyra segura SARS-CoV-2 (event) History SDOH [facility] Alcohol Std Drinks Medica l Center History SDOH [facility] Alcohol Binge Medical Carole ter History SDOH [facility] Alcohol Comment Medical C enter Cigarettes smoked 2020-12-01 2020-12-01 Mayra Ramon current (pack per 00:00:00 00:00:00 day) - Reported Cigarette 2020-12-01 2020-12-01 Mayra Ramon pack-years 00:00:00 00:00:00 History SDAK Social 2020-12-01 2020-12-01 5 Kelse y Seybold Connections Phone 00:00:00 00:00:00 History SDAK Social 2020-12-01 2020-12-01 2 Kelse y Seybold Connections Get 00:00:00 00:00:00 Together History SDAK Social 2020-12-01 2020-12-01 3 Kelse y Seybold Connections Nondenominational 00:00:00 00:00:00 History SDAK Social 2020-12-01 2020-12-01 1 Kelse y Seybold Connections 00:00:00 00:00:00 Membership History SDAK Social 2020-12-01 2020-12-01 3 Kelse y Seybold Connections 00:00:00 00:00:00 Meetings History SDAK Social 2020-12-01 2020-12-01 3 Kelse y Sey[facility] Living 00:00:00 00:00:00 History SDAK 2020-12-01 2020-12-01 3 Mayra clinton Physical Activity 00:00:00 00:00:00 DPW History SDAK 2020-12-01 2020-12-01 2 Mayra Seybo ld Physical Activity 00:00:00 00:00:00 MPS History SDOH Stress 2020-12-01 2020-12-01 4 Kel y Seybold 00:00:00 00:00:00 History SDOH 2020-12-01 [...] History SDOH Food 2020-12-01 2020-12-01 1 Mayra Josephold Worry 00:00:00 00:00:00 History SDOH Food 2020-12-01 [...] [facility] Homeless 00:00:00 00:00:00 Last Year Alcohol intake 2020-11-05 2020-11-[address] [facility] 00:00:00 00:00:00 non-drinker of Medical Ce nter alcohol (finding) Tobacco use and 2020-10-31 2020-10-[address] [facility] kes exposure 00:00:00 00:00:00 Medical Center History SDOH 2018-07-26 2018-07-26 1 [facility] Joe Alcohol Frequency 00:00:00 00:00:00 Medical Center History of tobacco 2011-02-07 Cigarette Smoker Mayra Ramon use 00:00:00 Sex [birth year] [facility] 00:00:00 00:00:00 Medical Center Smoking Status Start Date Stop Date Source Ex-smoker 2020-12-01 00:00:00 2020-12-01 00:00:00 Mayra luna Medications Ordered Filled Start Stop Current Ordering Indication Dosage Frequency Signature Comments Components Source Medication Medication Date Date Medication? Clinician (SIG) Name Name Triamcinolo 2021- No [id number] 40mg Mayra hall 12-10 ybold Acetonide 17:15: 17:19 (Kenalog) 00 :00 [40 mg/mL] 40mg TOTAL - Physician Administere d (J3301) Triamcinolo 2021- No [id number] 40mg 40 mg, Mayra hall 12-10 Physician Seybold Acetonide 17:15: 17:19 Administer (Kenalog) 00 :00 ed, ONCE, [40 mg/mL] On Mon 40mg TOTAL 12/10/21 at - Physician 1215, For Administere 1 dose d (J3301) busPIRone 2021- No 1{tbl} Take 1 Matt sey HCl 15 MG 12-10 tablet by Seyb old oral Tablet 11:53: 00:00 mouth 09 :00 metroNIDAZO 2021- No 1{tbl} Take 1 K elsey LE -09 12- tablet by Seybold (Nuvessa) 11:53: 00:00 mouth 1.3 % 09 :00 vaginal Gel Trazodone 2021- No 1{tbl} Take 1 Matt sey HCl 150 MG 12-10 tablet by Sey bold oral Tablet 11:53: 00:00 mouth at 09 :00 bedtime as needed Trazodone 2021-0 2021- No 1-3 Mayra HCl 50 MG 6-03 06-03 tablets at Sey bold oral Tablet 11:53: 00:00 bedtime as 09 :00 needed Lurasidone Yes [id number] 120mg Take 120 Mayra HCl 120 MG 6-03 mg by Seybold oral Tablet 11:43: mouth 38 daily Benztropine 0 Yes 1{tbl} Take 1 Ke lsey Mesylate 1 6-03 tablet by Seyb old MG oral 11:43: mouth at Tablet 38 bedtime busPIRone Yes 1{tbl} Take 1 Inga ey HCl 10 MG 6-03 tablet by Seybo ld oral Tablet 11:43: mouth 38 Mirtazapine Yes 1/2-1 Kelse y 30 MG oral 6-03 tablet at Seyb old Tablet 11:43: bedtime 38 Topiramate 0 Yes not Mayra 25 MG oral 6-03 defined Seybol d CAPSULE 11:43: SPRINKLE 38 Pantoprazol Yes [id number] 40mg Take 1 Mayra e Sodium 40 5-26 tablet (40 Se ybold MG oral 00:00: mg total) Tablet 00 by mouth Delayed in the Response morning and 1 tablet (40 mg total) in the evening. Meloxicam Yes [id number] TAKE ONE Mayra 7.5 MG oral 5-18 9107 (1) Seybold Tablet 00:00: TABLET(S) 00 BY MOUTH ONCE A DAY. Lurasidone 0 Yes [id number] 120mg Take 120 Mayra HCl 120 MG 5-12 mg by Seybold oral Tablet 13:58: mouth 39 daily Benztropine 0 Yes 1{tbl} Take 1 Ke lsey Mesylate 1 5-12 tablet by Seyb old MG oral 13:58: mouth at Tablet 39 bedtime busPIRone 0 Yes 1{tbl} Take 1 Inga ey HCl 15 MG 5-12 tablet by Seybo ld oral Tablet 13:58: mouth 39 busPIRone 2021-0 Yes 1{tbl} Take 1 Inga ey HCl 10 MG 5-12 tablet by Seybo ld oral Tablet 13:58: mouth 39 metroNIDAZO Yes 1{tbl} Take 1 Ke maryey LE 5-12 tablet by Seybold (vessa) 13:58: mouth 1.3 % 39 vaginal Gel [...] mouth at 39 bedtime as needed Trazodone Yes 1-3 Mayra HCl 50 MG 5-12 tablets at Seyb old oral Tablet 13:58: bedtime as 39 needed Sucralfate 0 Yes [id number] 1g Take 1 K elsey 1 g oral 5-12 tablet (1 Seybol d Tablet 00:00: g total) 00 by mouth 4 times daily Sucralfate 0 Yes [id number] 1g Take 1 K elsey 1 g oral 5-12 tablet (1 Seybol d Tablet 00:00: g total) 00 by mouth 4 times daily HYDROcodone Yes 2{tbl} Q.25D Take 2 Mayra -Acetaminop 5-09 tablets by Se Queplixold bari (DrEd Online Doctor) 00:00: mouth 10-325 MG 00 every 6 oral Tablet hours as needed for pain For chronic pain secondary to fibromyalg ia HYDROcodone 0 Yes 2{tbl} Q.25D Take 2 Mayra -Acetaminop 5-09 tablets by Se Zumbox hen (DrEd Online Doctor) 00:00: mouth 10-325 MG 00 every 6 oral Tablet hours as needed for pain For chronic pain secondary to fibromyalg ia PANTOPRAZOL 2021- No 1{tbl} Take 1 K elsey E SODIUM OR 5-05 05-05 tablet by Se ybold 10:55: 00:00 mouth 26 :00 Pantoprazol 2021-0 Yes [id number] 40mg Take 1 Mayra e Sodium 40 5-05 tablet (40 Se ybold MG oral 00:00: mg total) Tablet 00 by mouth Delayed daily Response Pantoprazol Yes [id number] 40mg Take 1 Mayra e Sodium 40 5-05 tablet (40 Se ybold MG oral 00:00: mg total) Tablet 00 by mouth Delayed daily Response Tizanidine Yes Tali 2 tablets Memoria HCl 4-28 Marek at bedtime l 02:45: [place] 30 Rizatriptan Yes Tali 1 tablet Memoria Benzoate 4-28 Marek l 02:45: Félix 30 Sumatriptan Yes Tali 1 tablet Memoria Succinate 4-28 Marek at least 2 l 02:45: hours Félix 30 between doses as needed Hydrocodone Yes Tali 2 tablets Memoria -Acetaminop 4-28 Marek as needed l hen 02:45: [place] 30 HydrOXYzine Yes Tali 1 tablet Memoria HCl -28 Marek as needed l 02:45: [place] 30 Latuda Yes Tali 1 tablet Shekhar clarice 4-28 Marek with food l 02:45: [place] 30 Seroquel Yes Tali 1 tablet Me moria 4-28 Marek l 02:45: Félix 30 Lurasidone Yes [id number] 120mg Take 120 Mayra HCl 120 MG 4-19 mg by Seybold oral Tablet 10:59: mouth 06 daily PANTOPRAZOL 0 Yes 1{tbl} Take 1 Ke lsey E SODIUM OR 4-19 tablet by Walker vargas 10:59: mouth 06 Benztropine 0 Yes 1{tbl} Take 1 Ke lsey Mesylate 1 4-19 tablet by Seyb old MG oral 10:59: mouth at Tablet 06 bedtime busPIRone 0 Yes 1{tbl} Take 1 Inga ey HCl 15 MG 4-19 tablet by Seybo ld oral Tablet 10:59: mouth 06 busPIRone 2021-0 Yes 1{tbl} Take 1 Inga ey HCl 10 MG 4-19 tablet by Seybo ld oral Tablet 10:59: mouth 06 metroNIDAZO 0 Yes 1{tbl} Take 1 Ke lsey LE 4-19 tablet by Seybold (Nuvessa) 10:59: mouth 1.3 % 06 vaginal Gel Mirtazapine 2022-0 Yes 1/2-1 Kelse y 30 MG oral 4-19 tablet at Seyb old Tablet 10:59: bedtime 06 Topiramate 2022-0 Yes not Mayra 25 MG oral 4-19 defined Seybol d CAPSULE 10:59: [place] 06 Trazodone 2021-0 Yes 1{tbl} Take 1 Inga ey HCl 150 MG 4-19 tablet by Seyb old oral Tablet 10:59: mouth at 06 bedtime as needed Trazodone 2021-0 Yes 1-3 Mayra HCl 50 MG 4-19 tablets at Seyb old oral Tablet 10:59: bedtime as 06 needed Lurasidone 2021-0 Yes [id number] 120mg Take 120 Mayra HCl 120 MG [...] Ke lsey LE 4-19 tablet by Seybold (Nuvessa) 10:59: mouth 1.3 % 06 vaginal Gel Mirtazapine 2021-0 Yes 1/2-1 Kelse y 30 MG oral 4-19 tablet at Seyb old Tablet 10:59: bedtime 06 Topiramate 2022-0 Yes not Mayra 25 MG oral 4-19 defined Seybol d CAPSULE 10:59: [place] 06 Trazodone 2021-0 Yes 1{tbl} Take 1 Inga ey HCl 150 MG 4-19 tablet by Seyb old oral Tablet 10:59: mouth at 06 bedtime as needed Trazodone 2021-0 Yes 1-3 Mayra HCl 50 MG 4-19 tablets at Seyb old oral Tablet 10:59: bedtime as 06 needed Erenumab-ao Yes [id number] 140mg Inject 1 Mayra oe 4-19 9105 mL (140 mg Seybold (Aimovig) 00:00: total) 140 MG/ML 00 into the subcutaneou skin once s Solution a month Auto-inject or injection Erenumab-ao Yes [id number] 140mg Inject 1 Mayra oe 4-19 9105 mL (140 mg Seybold (Aimovig) 00:00: total) 140 MG/ML 00 into the subcutaneou skin once s Solution a month Auto-inject or injection Erenumab-ao Yes [id number] 140mg Inject 1 Mayra oe 4-19 9105 mL (140 mg Seybold (Aimovig) 00:00: total) 140 MG/ML 00 into the subcutaneou skin once s Solution a month Auto-inject or injection Erenumab-ao 2021- No [id number] 140mg Inject 1 Mayra oe 4-19 06-03 [...] OF 2 TABS PER DAY). HYDROcodone Yes 2{tbl} Q.25D Take 2 Mayra -Acetaminop 4-11 tablets by Se missy candelaria (DrEd Online Doctor) 00:00: mouth 10-325 MG 00 every 6 oral Tablet hours as needed for pain For chronic pain secondary to fibromyalg ia Sumatriptan Yes TAKE ONE Ke lsey Succinate 4-11 (1) Seybold 100 MG oral 00:00: TABLET(S) Tablet 00 BY MOUTH AT ONSET OF HEADACHE. MAY REPEAT ONCE IN 2 HOURS NEEDED (MAX OF 2 TABS PER DAY). HYDROcodone Yes 2{tbl} Q.25D Take 2 Mayra -Acetaminop 4-11 tablets by Se ybold hen ([place]) 00:00: mouth 10-325 MG 00 every 6 [...] 2 TABS PER DAY). Meloxicam 2021-0 Yes [id number] TAKE ONE Mayra 7.5 MG oral 3-21 9107 (1) Seybold Tablet 00:00: TABLET(S) 00 BY MOUTH ONCE A DAY. Meloxicam 2022-0 Yes [id number] TAKE ONE Mayra 7.5 MG oral 3-21 9107 (1) Seybold Tablet 00:00: TABLET(S) 00 BY MOUTH ONCE A DAY. Meloxicam 2022-0 Yes [id number] TAKE ONE Mayra 7.5 MG oral 3-21 [...] MOUTH 24 HR ONCE A DAY. Rizatriptan 2021-0 Yes TAKE ONE Ke lsey Benzoate 10 [...] HOURS NEEDED. (MAX 2 TABLETS PER DAY). Pantoprazol Yes Tali 1 tablet Memoria e 3-04 Marek l 03:45: Félix 29 potassium Yes Tali not Memor ia 3-04 Marek defined l 03:45: [place] 29 Fluconazole Yes Tali 1 tablet Memoria 3-04 Marek l 03:45: [place] 29 Metronidazo Yes Tali 1 tablet Memoria le 3-04 Marek l 03:45: [place] 29 Metronidazo Yes Tali TAKE 1 M emoria le 3-04 Marek TABLET BY l 03:45: MOUTH EVERY 6 HOURS FOR 10 DAYS Ondansetron Yes Tali not Mem oria HCl 3-04 Marek defined l 03:45: [place] 29 Temazepam Yes Tali 1 capsule Memoria 3-04 Marek at bedtime l 03:45: as needed Félix 29 Ramelteon Yes Tali 1 tablet M emoria 3-04 Marek at bedtime l 03:45: as needed Félix 29 Triamcinolo 0 202- No [id number] 40mg Mayra hall 09-08 Seybold Acetonide 18:15: 18:25 (Kenalog) 00 :00 [40 mg/mL] 40mg TOTAL - Physician Administere d (J3301) Triamcinolo 2021- No [id number] 40mg 40 mg, Mayra ne 09-08 Physician Seybold Acetonide 18:15: 18:25 Administer (Kenalog) 00 :00 ed, ONCE, [40 mg/mL] On Wed 40mg TOTAL 09/08/21 at - Physician 1215, For Administere 1 dose d (J3301) Trazodone Yes 1{tbl} Take 1 Inga ey HCl 150 MG 3-02 tablet by Seyb old oral Tablet 12:01: mouth at 17 bedtime as needed Trazodone Yes 1-3 Mayra HCl 50 MG 3-02 tablets at Seyb old oral Tablet 12:01: bedtime as 17 needed Lurasidone 0 Yes [id number] 120mg Take 120 Mayra HCl 3-02 mg [...] mouth 1.3 % 43 vaginal Gel Mirtazapine 0 Yes 1/2-1 Kelse [...] BY MOUTH 24 HR ONCE A DAY. Latuda Yes Tali 1 tablet Shekhar clarice 2-16 Marek with food l 03:45: [place] 06 Zaleplon Yes Tali 1-2 Memori a 2-16 Marek capsules l 03:45: at bedtime Félix 06 as needed Seroquel Yes Tali 1-2 Memori a 2-15 Marek tablets at l 00:00: bedtime [place] 00 Ramelteon Yes Tali 1 tablet M emoria 2-15 Marek at bedtime l 00:00: as needed Félix 00 Seroquel Yes Tali 1 tablet Me moria 2-15 Marek l 00:00: Félix 00 HYDROcodone Yes [id number] 2{tbl} Q6H Take 2 Mayra -Acetaminop 2-15 tablets by Se missy candelaria ([place]) 00:00: mouth 10-325 MG 00 every 6 oral Tablet hours as needed for pain For chronic pain secondary to fibromyalg ia Belsomra Yes Tali 1 tablet Me moria 2-07 Marek at bedtime l 00:00: as needed [place] 00 Temazepam Yes Tali 1-2 Memor ia 2-02 Marek capsules l 03:45: at bedtime [place] 08 as needed Belsomra Yes Tali 1 tablet Me moria 2-02 Marek at bedtime l 00:00: as needed Félix 00 Zaleplon Yes Tali 1-2 Memori a 2-01 Marek capsules l 00:00: at bedtime [place] 00 as needed Triamcinolo 0 2021- No [id number] 40mg Mayra ne 07-28 9107 Seybold Acetonide 17:15: 17:15 (KENALOG) 00 :00 40 mg/mL Triamcinolo 2021-2021- No [id number] 40mg 40 mg, Mayra ne 07-28 9107 intramuscu Seybold Acetonide 17:15: 17:15 lar, ONCE, (KENALOG) 00 :00 On Wed 40 mg/mL 07/28/21 at 1115, For 1 dose Lurasidone 2021- Yes [id number] 120mg Take 120 Mayra HCl 1-19 mg by Seybold (LATUDA) 10:45: mouth 120 MG oral 24 daily Tab PANTOPRAZOL 2021-0 Yes 1{tbl} Take [...] bedtime as 24 needed Meloxicam 2021-0 Yes [id number] 7.5mg Take 1 Mayra 7.5 MG oral -19 9107 tablet Seybol d Tablet 00:00: (7.5 mg 00 total) by mouth daily Meloxicam 2021-0 Yes [id number] 7.5mg Take 1 Mayra 7.5 MG oral [...] (MAX 2 TABLETS PER DAY). Lurasidone Yes [id number] 120mg Take 120 Mayra HCl 1-04 mg [...] ld oral Tablet 09:44: mouth 49 busPIRone 2021-0 Yes 1{tbl} Take 1 Inga [...] as 49 needed hydrOXYzine 2020-07 Yes 10mg Q.[id number] Take 10 mg Mayra HCl 10 MG 2-31 [id number] by mouth 3 Seybold oral Tablet 00:00: 3D times 00 daily as needed hydrOXYzine 2020-07 Yes 10mg Q.[id number] Take 10 mg Mayra HCl 10 MG 2-31 [id number] by mouth 3 Seybold oral Tablet 00:00: 3D times 00 daily as needed hydrOXYzine 2020-07 Yes 10mg Q.[id number] Take 10 mg Mayra HCl 10 MG 2-31 [id number] by mouth 3 Seybold oral Tablet 00:00: 3D times 00 daily as needed hydrOXYzine 2020-07 Yes 10mg Q.[id number] Take 10 mg Mayra HCl 10 MG 2-31 [id number] by mouth 3 Seybold oral Tablet 00:00: 3D times 00 daily as needed hydrOXYzine 2020-07 Yes 10mg Q.[id number] Take 10 mg Mayra HCl 10 MG 2-31 [id number] by mouth 3 Seybold oral Tablet 00:00: 3D times 00 daily as needed hydrOXYzine 2020-07 Yes 10mg Q.[id number] Take 10 mg Mayra HCl 10 MG 2-31 [id number] by mouth 3 Seybold oral Tablet 00:00: 3D times 00 daily as needed Temazepam 2020-07 Yes TAKE ONE Igna ey 15 MG oral 2-30 (1) OR [...] Take 2 Mayra -Acetaminop 2-22 tablets by [employer] ([employer] Online Doctor) 00:00: mouth 10-325 MG 00 every 6 oral Tablet hours as needed for pain For chronic pain secondary to fibromyalg ia HYDROcodone 2020-07 Yes 2{tbl} Q6H Take 2 Mayra -Acetaminop 2-22 tablets by Se Zumbox hen (DrEd Online Doctor) 00:00: mouth 10-325 MG 00 every 6 [...] 2020-07 Yes TAKE ONE Ke lsey Succinate 2-03 (1) Seybold 100 MG oral 00:00: TABLET(S) Tablet 00 BY MOUTH AT ONSET OF HEADACHE. MAY REPEAT ONCE IN 2 HOURS NEEDED (MAX OF 2 TABS PER DAY). Triamcinolo 2020-07- No [id number] 40mg Mayra ne 08-11 Seybold Acetonide 20:00: 20:11 (Kenalog) 00 :00 [40 mg/mL] 40mg TOTAL - Physician Administere d (J3301) Ketorolac 2020-07- No [id number] 60mg Ke lsey Tromethamin 08-11 Seybold e (TORADOL) 20:00: 20:12 60 mg/2 mL 00 :00 Ketorolac 2020-07- No [id number] 60mg 60 mg, Mayra Tromethamin 08-11 intramuscu S eybold e (TORADOL) 20:00: 20:12 lar, ONCE, 60 mg/2 mL 00 :00 On Alexsandra 06/10/21 at 1400, For 1 dose Triamcinolo 2020-07- No [id number] 40mg 40 mg, Mayra ne 08-11 Physician Seybold Acetonide 20:00: 20:11 Administer (Kenalog) 00 :00 ed, ONCE, [40 mg/mL] On Alexsandra 40mg TOTAL 06/10/21 at - Physician 1400, For Administere 1 dose d (J3301) Lurasidone 2020-07 Yes [id number] 120mg Take 120 Mayra HCl 2-02 mg by Seybold (LATUDA) 13:31: mouth 120 MG oral 06 daily Tab PANTOPRAZOL 2020-07 Yes 1{tbl} Take 1 Ke lsey E SODIUM OR 2-02 tablet by Sey bold 13:31: mouth 06 Benztropine 2020-07 Yes 1{tbl} Take 1 Ke lsey Mesylate 1 2-02 tablet by Seyb old MG oral 13:31: mouth at Tablet 06 bedtime busPIRone 2021-1 Yes 1{tbl} Take 1 Inga ey HCl 15 MG 2-02 tablet by Seybo ld oral Tablet 13:31: mouth 06 busPIRone 2020-07 Yes 1{tbl} Take 1 Igna ey HCl 10 MG 2-02 tablet by [...] bedtime as 06 needed Onabotulinu 2020-07- No [id number] 200U K nimoy mtoxinA 08-10 Seybold [200 Units] 19:30: 19:37 - Physician 00 :00 Administere d (J0585) Onabotulinu 2020-07- No [id number] 200U 200 unit, Mayra mtoxinA 08-10 Physician Seybol d [200 Units] 19:30: 19:37 Administer - Physician 00 :00 ed, ONCE, Administere 1 dose, On d (J0585) 06/09/21 at 1330 metroNIDAZO 2020-07 Yes 1{tbl} Take 1 Ke [...] oral Tablet 13:02: bedtime as 08 needed Lurasidone 2020-07 Yes [id number] 120mg Take 120 Mayra HCl 2-01 mg [...] d oral Recon 13:02: mouth Susp 08 Temazepam 2020-07 Yes Tali 1-2 Memor ia 2-01 Marek capsules l 00:00: at bedtime Félix 00 as needed HYDROcodone 2020-07 Yes 2{tbl} Q6H Take 2 Ke lsey -Acetaminop 1-24 tablets by Se missy candelaria ([place]) 00:00: mouth 10-325 MG 00 every 6 oral Tablet hours as needed for pain For chronic pain secondary to fibromyalg ia HYDROcodone 2020-07 Yes 2{tbl} Q6H Take 2 Ke lsey -Acetaminop 1-24 tablets by Se missy candelaria ([place]) 00:00: mouth 10-325 MG 00 every 6 oral Tablet hours as needed for pain For chronic pain secondary to fibromyalg ia Temazepam 2020-07 Yes Tali 1-2 Memor ia 0-28 Marek capsules l 00:00: at bedtime [place] 00 as needed Sumatriptan 2020-07 Yes TAKE ONE Ke lsey [...] EVERY 8 HOURS NEEDED FOR NAUSEA Ondansetron 2021-1 2022- No TAKE ONE K elsey HCl 4 MG 0-18 06-03 TABLET BY Seybo ld oral Tablet 00:00: 00:00 MOUTH 00 :00 EVERY 8 HOURS NEEDED FOR NAUSEA Rizatriptan 1 Yes TAKE 1 Inga ey [...] oral Tablet 00:00: route as 00 needed Temazepam 2020-0 Yes Tali 1-2 Memor ia 9-30 Marek capsules l 00:00: at bedtime Félix 00 as needed HydrOXYzine 2020-0 Yes Tali 1 tablet Memoria HCl 9-30 Marek as needed l 00:00: Félix 00 hydrOXYzine 2020-0 2022- No 1{tbl} 1 tablet Mayra HCl 10 MG 9-30 05-12 by other Seybo ld oral Tablet 00:00: 00:00 route as 00 :00 needed metroNIDAZO 2020-0 Yes 1{tbl} Take 1 Ke lsey LE 9-23 tablet by Yenny (Nuvessa) 15:04: mouth 1.3 % 42 vaginal [...] mouth at 42 bedtime as needed Trazodone 0 Yes 1-3 Mayra HCl 50 MG 9-23 tablets at Seyb old oral Tablet 15:04: bedtime as 42 needed Lurasidone Yes [id number] 120mg Take 120 Mayra HCl 9-23 mg by Seybold (LATUDA) 15:04: mouth 120 MG oral 42 daily Tab PANTOPRAZOL 0 Yes 1{tbl} Take 1 Ke lsey E SODIUM OR 9-23 tablet by Sey bold 15:04: mouth 42 Benztropine 0 Yes 1{tbl} Take 1 Ke lsey Mesylate 1 9-23 tablet by Seyb old MG oral 15:04: mouth at Tablet 42 bedtime busPIRone 0 Yes 1{tbl} Take 1 Inga ey HCl 15 MG 9-23 tablet by Seybo ld oral Tablet 15:04: mouth 42 busPIRone 2020-0 Yes 1{tbl} Take 1 Inga ey HCl 10 MG 9-23 tablet by Seybo ld oral Tablet 15:04: mouth 42 Fluconazole 2020-0 Yes 1{tbl} Take 1 Ke lsey 40 MG/ML 9-23 tablet by Seybol d oral Recon 15:04: mouth Susp 42 Amoxicillin 2020-0 Yes Mayra 500 MG oral 9-20 Seybold Capsule 00:00: 00 Amoxicillin 2020-0 Yes Mayra 500 MG oral 9-20 Seybold Capsule 00:00: 00 Amoxicillin 2020-0 Yes Mayra 500 MG oral 9-20 Seybold Capsule 00:00: 00 Amoxicillin 2020-0 Yes Mayra 500 MG oral 9-20 Seybold Capsule 00:00: 00 Amoxicillin 2020-0 Yes Mayra 500 MG oral 9-20 Seybold Capsule 00:00: 00 HYDROcodone 2020-0 Yes 2{tbl} Q6H Take 2 Ke lsey -Acetaminop 9-03 tablets by Se missy candelaria ([place]) 00:00: mouth 10-325 MG 00 every 6 oral Tablet hours as needed for pain For chronic pain secondary to fibromyalg ia Ondansetron Yes TAKE ONE Ke lsey HCl 4 MG 8-18 TABLET BY Seybol d oral Tablet 00:00: MOUTH 00 EVERY 8 HOURS NEEDED FOR NAUSEA Temazepam Yes Tali 1-2 Memor ia 8-03 Marek capsules l 02:45: at bedtime Félix 37 as needed Rizatriptan Yes TAKE ONE [...] 7- Marek TABLET BY l 02:45: MOUTH [place] 18 EVERY 6 HOURS FOR 10 DAYS Ondansetron Yes Tali not Mem oria HCl 7- Marek defined l 02:45: [place] 18 Rizatriptan Yes Tali 1 tablet Memoria Benzoate 7- Marek l 02:45: [place] 18 Sumatriptan Yes Tali 1 tablet Memoria Succinate 7- Marek at least 2 l 02:45: hours Félix 18 between doses as needed Latuda Yes Tali 1 tablet Shekhar clarice 7- Marek with food l 02:45: Félix 18 Hydrocodone Yes Tali 2 tablets Memoria -Acetaminop 7- Marek as needed l hen 02:45: [place] 18 Temazepam Yes Tali 1 capsule Memoria 7-31 Marek at bedtime l 02:45: as needed Félix 18 potassium Yes Tali not Memor ia 7-31 Marek defined l 02:45: [place] 18 Pantoprazol Yes Tali 1 tablet Memoria e 7-31 Marek l 02:45: Félix 18 Fluconazole Yes Tali 1 tablet Memoria 7-31 Marek l 02:45: Félix 18 Metronidazo Yes Tali 1 tablet Memoria le 7-31 Marek l 02:45: [place] 18 Oxybutynin Yes TAKE ONE Matt sey Chloride 10 6-06 TABLET BY Sey bold MG oral 00:00: MOUTH TABLET SR 00 DAILY 24 HR Oxybutynin Yes TAKE ONE Matt sey Chloride 10 6-06 TABLET BY Sey bold MG oral 00:00: MOUTH TABLET SR 00 DAILY 24 HR Oxybutynin 0 Yes TAKE ONE Matt sey Chloride 10 [...] Mesylate 5-06 Marek at bedtime l 02:45: Félix 33 Benztropine Yes Tali 1 tablet Memoria Mesylate 5-06 Marek at bedtime l 02:45: Félix 33 lurasidone Yes 120mg QD Take [address] [facility] [address] [facility] (Latuda) 5-01 [facility] mg Tab 14:17: mouth Medica l 48 daily. [place] lurasidone Yes 120mg QD Take [address] (Latuda) 5-01 [facility] by [facility] 120 mg Tab 14:17: mouth Medica l 48 daily. [place] docusate 2020- No 100mg Q.5D Take 1 [facility] sodium -07 14-11 capsule [facility] (COLACE) 00:00: 23:59 (100 mg Medic al 100 MG 00 :00 total) by [place] capsule mouth 2 (two) times daily for 10 days. amoxicillin 2020- No 1{tbl} Q.5D Take [address] -clavulanat 11-07 05-07 tablet by Frank shaunna matamoros 00:00: 23:59 mouth 2 Medical (AUGMENTIN) 00 :00 (two) Center 875-125 mg times per tablet daily for 6 days. LORazepam 2020- No 1mg Take [address] [facility] [address] [facility] (ATIVAN) 1 -24 -24 by mouth. Cleve es MG tablet 12:35: 00:00 Medical 45 :00 [place] ciprofloxac 0 2020- No 500mg Take [address] [facility] in HCl 4-23 04-23 mg by [facility] (CIPRO) 500 20:58: 00:00 mouth. Med ical MG tablet 58 :00 [place] lurasidone 0 2020- No Take by [facility] (LATUDA) 40 4-23 04-23 [facility]. [facility] mg Tab 20:58: 00:00 Medical 58 :00 Center oxybutynin 0 Yes 10mg QD Take [address] (DITROPAN-X 4-21 by mouth Luke s L) 10 MG 24 00:00: daily . Med ical hr tablet 00 Center oxybutynin Yes 10mg QD Take [address] (DITROPAN-X 4-21 by mouth Luke s L) 10 MG 24 00:00: daily . Med ical hr tablet 00 Center temazepam Yes 15mg Take [address] [facility] [address] [facility] (RESTORIL) 4-06 [facility] 15 mg 00:00: every Medical capsule 00 night as Center needed . temazepam Yes 15mg Take [address] [facility] [address] [facility] (RESTORIL) 4-06 [facility] 15 mg 00:00: every Medical capsule 00 night as Center needed . BusPIRone Yes Robinson 1 tablet Shekhar clarice HCl 4-01 Lidasan l 02:48: Félix 48 BusPIRone 2020-0 Yes Robinson 1 tablet Shekhar clarice HCl 4-01 Lidasan l 02:48: [place] 48 Tizanidine 0 Yes TAKE TWO Matt sey HCl 4 [...] Tablet 00:00: MOUTH AT 00 BEDTIME Tizanidine Yes TAKE TWO Matt sey HCl 4 MG 4-01 TABLETS BY Seybo ld oral Tablet 00:00: MOUTH AT 00 BEDTIME Tizanidine 0 Yes TAKE TWO Matt sey HCl 4 MG 4-01 TABLETS BY Seybo ld oral Tablet 00:00: MOUTH AT 00 BEDTIME Tizanidine Yes TAKE TWO Matt sey HCl 4 MG 4-01 TABLETS BY Seybo ld oral Tablet 00:00: MOUTH AT 00 BEDTIME Tizanidine Yes TAKE TWO Matt sey HCl 4 MG 4-01 TABLETS BY Seybo ld oral Tablet 00:00: MOUTH AT 00 BEDTIME Tizanidine Yes TAKE TWO Matt sey HCl 4 MG 4-01 TABLETS BY Seybo ld oral Tablet 00:00: MOUTH AT 00 BEDTIME Tizanidine Yes TAKE TWO Matt sey HCl 4 MG 4-01 TABLETS BY Seybo ld oral Tablet 00:00: MOUTH AT 00 BEDTIME busPIRone 2020- No [address] [facility] (BUSPAR) 15 4- 04-24 [facility] MG tablet 00:00: 00:00 Medical 00 :00 [place] Latuda 120 2020- No 120mg QD [address] [facility] mg Tab 09-12-24 daily . [facility] 00:[facility]: 00:00 Medical 00 :00 [place] Sumatriptan Yes TAKE ONE Ke lsey Succinate 2-24 TABLET BY Seybo ld 100 MG oral 00:00: MOUTH AT Tablet 00 ONSET OF HEADACHE; MAY REPEAT ONE TABLET IN 2 HOURS IF NEEDED. ( MAX OF 2 TABLET IN 24 HOURS) benztropine 2020- No [facility]COG[facility]IN[facility] 2 04-24 [facility] 1 MG tablet 00:00: 00:00 Medic al 00 :00 [place] pantoprazol 2020- No [facility] (PROTONIX) 00:00: 00:00 Medica l 40 MG 00 :00 [place] tablet Trazodone Yes Sharifa 1 tablet Me moria HCl 1-19 Walker at bedtime l 03:45: as needed Félix 16 Lorazepam Yes Sharifa 1 tablet Me moria 1-19 Walker as needed l 03:45: Félix 16 Trazodone Yes Sharifa 1 tablet Me moria HCl 1-19 Walker at bedtime l 03:45: as needed Félix 16 Lorazepam Yes Sharifa 1 tablet Me moria 1-19 Walker as needed l 03:45: [place] 16 Trazodone 2019-07 Yes 1{tbl} Take 1 [...] HCl 2-23 Lidasan at bedtime l 00:00: Trazodone 2019-07 Yes Robinson 1 tablet Shekhar clarice HCl 2-23 Lidasan at bedtime l 00:00: Temazepam 2019-07 Yes Sharifa 1 capsule M emoria 1-05 Walker at bedtime l 00:00: as needed Temazepam 2019-07 Yes Sharifa 1 capsule M emoria 1-05 Walker at bedtime l 00:00: as needed ondansetron Yes TAKE ONE [facility] (ZOFRAN) 4 9-30 TABLET BY Luke s MG tablet 00:00: MOUTH Medical 00 EVERY 8 Center HOURS NEEDED FOR NAUSEA ondansetron Yes TAKE ONE [facility] (ZOFRAN) 4 9-30 TABLET BY Luke s MG tablet 00:00: MOUTH Medical 00 EVERY 8 Center HOURS NEEDED FOR NAUSEA Midodrine Yes [id number] 2.5mg Take 1 K elsey HCl 2.5 MG 9-22 tablet Seybold oral Tab 00:00: (2.5 mg 00 total) by mouth daily Midodrine Yes [id number] 2.5mg Take 1 K elsey HCl 2.5 MG 9-22 tablet Seybold oral Tab 00:00: (2.5 mg 00 total) by mouth daily Midodrine Yes [id number] 2.5mg Take 1 K elsey HCl 2.5 MG 9-22 tablet Seybold oral Tab 00:00: (2.5 mg 00 total) by mouth daily Midodrine Yes [id number] 2.5mg Take 1 K elsey HCl 2.5 MG 9-22 tablet Seybold oral Tab 00:00: (2.5 mg 00 total) by mouth daily Midodrine Yes [id number] 2.5mg Take 1 K elsey HCl 2.5 MG 9-22 tablet Seybold oral Tab 00:00: (2.5 mg 00 total) by mouth daily Midodrine Yes [id number] 2.5mg Take 1 K elsey HCl 2.5 MG 9-22 tablet Seybold oral Tab 00:00: (2.5 mg 00 total) by mouth daily Midodrine Yes [id number] 2.5mg Take 1 K elsey HCl 2.5 MG 9-22 tablet Seybold oral Tab 00:00: (2.5 mg 00 total) by mouth daily Midodrine Yes [id number] 2.5mg Take 1 K elsey HCl 2.5 MG 9-22 tablet Seybold oral Tab 00:00: (2.5 mg 00 total) by mouth daily Midodrine Yes [id number] 2.5mg Take 1 K elsey HCl 2.5 MG 9-22 tablet Seybold oral Tab 00:00: (2.5 mg 00 total) by mouth daily Midodrine 2021- No [id number] 2.5mg Take 1 Mayra HCl 2.5 MG 9-22 06-03 tablet Seybol d oral Tab 00:00: 00:00 (2.5 mg 00 :00 total) by mouth daily midodrine 2020- No 2.5mg Take 2.[address] [facility] [address] [facility] (PROAMATINE 9-22 04-24 mg by [facility] ) 2.5 MG 00:00: 00:00 mouth. Medica l tablet 00 :00 Center Hydrocodone 2020-0 Yes Lola 2 tablets Memoria -Acetaminop 8-19 Lopez as needed l hen 02:45: Félix 46 Lorazepam 2020-0 Yes Lola 1 tablet M emoria 8-19 Lopez as needed l 02:45: Félix 46 Lorazepam 2020-0 Yes Lola 1 tablet M emoria 8-19 Lopez as needed l 02:45: Félix 46 Hydrocodone 2020-0 Yes Lola 2 tablets Memoria -Acetaminop 8-19 Lopez as needed l hen 02:45: Félix Mirtazapine 2020-0 Yes Lola 1/2-1 Me moria 8-18 Lopez tablet at l 02:46: bedtime Félix Rizatriptan 2020-0 Yes Lola not Mem oria Benzoate 8-18 Lopez defined l 02:46: Félix Sumatriptan 2019-0 Yes Lola not Mem oria Succinate 8-18 Lopez defined l 02:46: Félix Topiramate 2020-0 Yes Lola not Shekhar clarice 8-18 Lopez defined l 02:46: Promethazin 2020-0 Yes Lola 1 tablet Memoria e HCl 8-18 Lopez l 02:46: [place] 28 Mirtazapine 2020-0 Yes Lola 1/2-1 Me moria 8-18 Lopez tablet at l 02:46: bedtime Sumatriptan 2020-0 Yes Lola not Mem oria Succinate 8-18 Lopez defined l 02:46: Félix Rizatriptan 2020-0 Yes Lola not Mem oria Benzoate 8-18 Lopez defined l 02:46: Félix Topiramate 2020-0 Yes Lola not Shekhar clarice 8-18 Lopez defined l 02:46: Félix Promethazin 2020-0 Yes Lola 1 tablet Memoria e HCl 8-18 Lopez l 02:46: [place] 28 Trazodone 2020-0 Yes Lola 1-3 Memor ia HCl 8-18 Lopez tablets at l 02:46: bedtime as Félix 27 needed Trazodone 2020-0 Yes Lola 1-3 Memor ia HCl 8-18 Lopez tablets at l 02:46: bedtime as [place] 27 needed BusPIRone 2020-0 Yes Lola 1 tablet M emoria HCl 8-18 Lopez l 02:46: BusPIRone 2020-0 Yes Lola 1 tablet M emoria HCl 8-18 Lopez l 02:46: Benztropine 2020-0 Yes Lola 1 tablet Memoria Mesylate 7-20 Lopez at bedtime l 00:00: Benztropine 2020-0 Yes Lola 1 tablet Memoria Mesylate 7-20 Lopez at bedtime l 00:00: Trazodone 2020-0 Yes Lola 1-3 Memor ia HCl 3-02 Lopez tablets at l 00:00: bedtime as needed Trazodone 2020-0 Yes Lola 1-3 Memor ia HCl 3-02 Lopez tablets at l 00:00: bedtime as needed Cholecalcif 2019-0 Yes [id number] 2000U Take 1 Mayra domenic 6-18 tablet Seybold (VITAMIN D) 00:00: (2,000 2000 units 00 units oral Tab total) by mouth daily Cholecalcif 2019-0 Yes [id number] 2000U Take 1 Mayra domenic 6-18 tablet Seybold (VITAMIN D) 00:00: (2,000 2000 units 00 units oral Tab total) by mouth daily Cholecalcif 2019-0 Yes [id number] 2000U Take 1 Mayra domenic 6-18 tablet Seybold (VITAMIN D) 00:00: (2,000 2000 units 00 units oral Tab total) by mouth daily Cholecalcif 2019-0 Yes [id number] 2000U Take 1 Mayra domenic 6-18 tablet Seybold (VITAMIN D) 00:00: (2,000 2000 units 00 units oral Tab total) by mouth daily Cholecalcif 2019-0 Yes [id number] 2000U Take 1 Mayra domenic 6-18 tablet Seybold (VITAMIN D) 00:00: (2,000 2000 units 00 units oral Tab total) by mouth daily Cholecalcif 2019-0 Yes [id number] 2000U Take 1 Mayra domenic 6-18 tablet Seybold (VITAMIN D) 00:00: (2,000 2000 units 00 units oral Tab total) by mouth daily Cholecalcif 2019-0 Yes [id number] 2000U Take 1 Mayra domenic 6-18 tablet Seybold (VITAMIN D) 00:00: (2,000 2000 units 00 units oral Tab total) by mouth daily Cholecalcif 2019-0 Yes [id number] 2000U Take 1 Mayra domenic 6-18 tablet Seybold (VITAMIN D) 00:00: (2,000 2000 units 00 units oral Tab total) by mouth daily Cholecalcif 2019-0 Yes [id number] 2000U Take 1 Mayra domenic 6-18 tablet Seybold (VITAMIN D) 00:00: (2,000 2000 units 00 units oral Tab total) by mouth daily Cholecalcif 2019-0 Yes [id number] 2000U Take 1 Mayra domenic 6-18 tablet Seybold (VITAMIN D) 00:00: (2,000 2000 units 00 units oral Tab total) by mouth daily ondansetron 2018-0 2020- No 4mg Take [address] [facility] (ZOFRAN-ODT 16 04-23 tablet (4 Frank kes ) 4 MG [...] 1 Medical 25 MG 00 :00 SUPPOSITOR [place] suppository Y EVERY 6 HOURS HYDROcodone 2017-07 Yes pain 2{tbl} Take [address] [facility] -acetaminop 2-24 tablets by Frank candelaria ([place]) 00:00: mouth Medic al 10-325 mg 00 every 6 Center per tablet (six) hours as needed . HYDROcodone 2017-07 Yes pain 2{tbl} Take [address] [facility] [address] [facility] -acetaminop 2-24 tablets by Frank candelaria ([place]) 00:00: mouth Medic al 10-325 mg 00 every 6 Center per tablet (six) hours as needed . tiZANidine 2017-07- No TAKE TWO [facility] (ZANAFLEX) 2-17 -24 TABLETS BY Frank kes 4 MG tablet 00:00: 00:00 MOUTH Medi gabrielle 00 :00 EVERY Center NIGHT AT BEDTIME rizatriptan Yes 10mg Take [address] [facility] (MAXALT) 10 5-15 by mouth . Frank kes MG tablet 00:00: Medical 00 [place] SUMAtriptan Yes 100mg Take [address] (IMITREX) 5-15 [facility] 100 MG 00:00: mouth . Medical tablet 00 [place] rizatriptan Yes 10mg Take [address] [facility] (MAXALT) 10 5-15 by mouth . Frank kes MG tablet 00:00: Medical 00 [place] SUMAtriptan Yes 100mg Take [address] (IMITREX) 5-15 [facility] 100 MG 00:00: mouth . Medical tablet 00 [place] Glucose Yes [id number] Use as Marya Blood (ONE 7- instructed Sey bold TOUCH ULTRA 00:00: 1 time TEST) in daily vitro Strip Glucose Yes [id number] Use as Mayra Blood (ONE 02-03 instructed Sey bold TOUCH ULTRA 00:00: 1 time TEST) in daily vitro Strip Glucose Yes [id number] Use as Mayra Blood (ONE 02-03 instructed Sey bold TOUCH ULTRA 00:00: 1 time TEST) in daily vitro Strip Glucose Yes [id number] Use as Mayra Blood (ONE 02-03 instructed Sey bold TOUCH ULTRA 00:00: 1 time TEST) in daily vitro Strip Glucose Yes [id number] Use as Mayra Blood (ONE 02-03 instructed Sey bold TOUCH ULTRA 00:00: 1 time TEST) in daily vitro Strip Glucose Yes [id number] Use as Mayra Blood (ONE 02-03 instructed Sey bold TOUCH ULTRA 00:00: 1 time TEST) in daily vitro Strip Glucose Yes [id number] Use as Mayra Blood (ONE 02-03 instructed Sey bold TOUCH ULTRA 00:00: 1 time TEST) in daily vitro Strip Glucose Yes [id number] Use as Mayra Blood (ONE 02-03 instructed Sey bold TOUCH ULTRA 00:00: 1 time TEST) in daily vitro Strip Glucose Yes [id number] Use as Mayra Blood (ONE 02-03 instructed Sey bold TOUCH ULTRA 00:00: 1 time TEST) in daily vitro Strip Glucose Yes [id number] Use as Mayra Blood (ONE 02-03 instructed Sey bold TOUCH ULTRA 00:00: 1 time TEST) in daily vitro Strip ONE TOUCH Yes [id number] Use as Inga ey ULTRASOFT 5-22 instructed Seyb old LANCETS 00:00: 3 times d does not 00 aily apply Misc ONE TOUCH Yes [id number] Use as Inga ey ULTRASOFT 5-22 instructed Seyb old LANCETS 00:00: 3 times d does not 00 aily apply Misc ONE TOUCH Yes [id number] Use as Inga ey ULTRASOFT 5-22 instructed Seyb old LANCETS 00:00: 3 times d does not 00 aily apply Misc ONE TOUCH Yes [id number] Use as Inga ey ULTRASOFT 5-22 instructed Seyb old LANCETS 00:00: 3 times d does not 00 aily apply Misc ONE TOUCH Yes [id number] Use as Inga ey ULTRASOFT 5-22 instructed Seyb old LANCETS 00:00: 3 times d does not 00 aily apply Misc ONE TOUCH Yes [id number] Use as Inga ey ULTRASOFT 5-22 instructed Seyb old LANCETS 00:00: 3 times d does not 00 aily apply Misc ONE TOUCH Yes [id number] Use as Inga ey ULTRASOFT 5-22 instructed Seyb old LANCETS 00:00: 3 times d does not 00 aily apply Misc ONE TOUCH Yes [id number] Use as Inga ey ULTRASOFT 5-22 instructed Seyb old LANCETS 00:00: 3 times d does not 00 aily apply Misc ONE TOUCH Yes [id number] Use as Inga ey ULTRASOFT 5-22 instructed Seyb old LANCETS 00:00: 3 times d does not 00 aily apply Misc ONE TOUCH Yes [id number] Use as Inga ey ULTRASOFT 5-22 instructed [...] And Up Pneumococcal Vaccine, 2020-12-01 Completed Matt arciniega Seybold [...] Seybold 00:00:00 Covid-19 Vaccine 2020-10-08 Completed Mayra Nuñez)Rigoberto-tyronep, 00:00:00 Spencer Protein, Pf, 100 Mcg/0.5ml,IM Covid-19 [...] Mcg/0.5ml,IM Covid-19 Vaccine 2020-09-10 Completed Mayra Lindo bettybold (Moderna), Mrna-lnp, 00:00:00 Spencer Protein, Pf, 100 Mcg/0.5ml,IM Covid-19 Vaccine 2020-09-10 Completed Mayra S eybold (Moderna), Mrna-lnp, 00:00:00 Spencer Protein, Pf, 100 Mcg/0.5ml,IM Covid-19 Vaccine 2020-09-10 Completed Mayra Lindo eybold (Moderna), Mrna-lnp, 00:00:00 Spencer Protein, Pf, 100 Mcg/0.5ml,IM Covid-19 Vaccine 2020-09-10 Completed Mayra Lindo eybold Moderna (Spikevax), 00:00:00 Mrna-lnp, Spencer Protein, Pf Covid-19 Vaccine 2020-09-10 Completed Mayra Carly eybold Moderna (Spikevax), 00:00:00 Mrna-lnp, Spencer Protein, Pf Covid-19 Vaccine 2020-09-10 Completed Mayra Lindo bettybold Moderna (Spikevax), 00:00:00 Mrna-lnp, Spencer Protein, Pf Covid-19 Vaccine 2020-09-10 Completed Mayra Lindo eybold Moderna (Spikevax), 00:00:00 Mrna-lnp, Spencer Protein, Pf Covid-19 Vaccine 2020-09-10 Completed Mayra S eybold Moderna (Spikevax), 00:00:00 Mrna-lnp, Spencer Protein, [...] pressure Heart rate 2021-12-10 16:41:00 60 /min Marya S eybold Respiratory rate 2021-12-10 16:41:00 16 [...] BMI 2021-04-01 19:59:00 26.62 kg/m2 Mayra S bettybold Oxygen saturation in 2021-04-01 19:59:00 98 /min Mayra Doeybmirella Arterial blood by Pulse oximetry WEIGHT 2020-11-04 05:16:00 75.07 kg WEIGHT 2020-11-03 04:46:00 75.025 kg WEIGHT 2020-10-31 13:23:00 72.576 kg HEIGHT 2020-10-31 13:23:00 167.6 cm WEIGHT 2020-10-30 21:03:00 72.576 kg WEIGHT 2020-11-04 05:16:00 75.07 kg WEIGHT 2020-11-03 04:46:00 75.025 kg WEIGHT 2020-10-31 13:23:00 72.576 kg HEIGHT 2020-10-31 13:23:00 167.6 cm WEIGHT 2020-10-30 21:03:00 72.576 kg Weight 2021-11-03 16:40:00 [facility] Félix Weight 2021-06-09 14:30:00 [facility] Height 2021-06-09 14:30:00 [facility] [place] Weight 2021-05-06 14:20:00 [facility] Félix Height 2021-05-06 14:20:00 [facility] Weight 2021-04-08 13:40:00 [facility] Height 2021-04-08 13:40:00 [facility] [place] Weight 2021-02-05 13:45:00 [facility] [place] Height 2021-02-05 13:45:00 [facility] [place] Weight 2020-12-11 14:20:00 [facility] Félix Height 2020-12-11 14:20:00 [facility] Félix Weight 2020-11-11 14:00:00 [facility] Félix Height 2020-11-11 14:00:00 [facility] Systolic blood 2020-11-07 11:17:00 131 mm[Hg] [facility] Diastolic blood 2020-11-07 11:17:00 60 mm[Hg] [facility] Heart rate 2020-11-07 11:17:00 81 /min [facility] Body temperature 2020-11-07 11:17:00 36.61 April [facility] Respiratory rate 2020-11-07 11:17:00 18 /min [facility] Oxygen saturation in 2020-11-07 11:17:00 96 /min [facility] Arterial blood by Medical Ce nter Pulse oximetry Body weight 2020-11-04 05:16:00 75.07 kg [facility] BMI 2020-11-04 05:16:00 26.71 kg/m2 [facility] Body height 2020-10-31 13:23:00 167.6 cm [facility] Weight 2020-10-12 19:30:00 [facility] Félix Height 2020-10-12 19:30:00 [facility] F[facility] Weight 2020-09-09 19:00:00 [facility] [place] Weight 2020-08-12 20:30:00 [facility] [place] Weight 2020-07-01 21:00:00 [facility] F[facility] Weight 2020-06-09 15:45:00 [facility] Weight 2020-05-14 16:30:00 [facility] [place] Weight 2020-04-21 16:30:00 [facility] F[facility] Weight 2020-02-25 16:00:00 [facility] [place] Weight 2020-01-27 15:30:00 [facility] [place] Weight 2019-12-30 14:45:00 [facility] [place] Weight 2019-12-06 14:30:00 [facility] Félix Weight 2019-11-06 16:30:00 [facility] [place] Height 2019-11-06 16:30:00 [facility] [place] Weight 2019-07-16 19:45:00 [facility] [place] Height 2019-07-16 19:45:00 [facility] [place] Heart Rate 2019-07-16 19:45:00 [facility] [place] Diastolic (mm Hg) 2019-07-16 19:45:00 Mem orial Félix Systolic (mm Hg) 2019-07-16 19:45:00 Shekhar rial [place] Weight 2019-06-10 20:00:00 [facility] [place] Height 2019-06-10 20:00:00 [facility] Heart Rate 2019-06-10 20:00:00 [facility] Diastolic (mm Hg) 2019-06-10 20:00:00 Mem orial [place] Systolic (mm Hg) 2019-06-10 20:00:00 Shekhar rial Félix Procedures Procedure Date / Time Performing Clinician Source Performed POCT-GLUCOSE METER 2020-11-07 11:18:00 Blanco Hickman [facility] POCT-GLUCOSE METER 2020-11-07 07:06:00 Blanco Hickman [facility] SARS-COV2/RT-PCR ([facility] & 2020-11-07 04:40:00 Rustam Garcia [facility] REF [facility] POCT-GLUCOSE METER 2020-11-06 21:03:00 Blanco Hickman [facility] POCT-GLUCOSE METER 2020-11-06 16:32:00 Blanco Hickman [facility] POCT-GLUCOSE METER 2020-11-06 11:19:00 Blanco Hickman [facility] POCT-GLUCOSE METER 2020-11-06 07:54:00 Blanco Hickman [facility] POCT-GLUCOSE METER 2020-11-05 23:44:00 Blanco Hickman [facility] POCT-GLUCOSE METER 2020-11-05 18:58:00 Blanco Hickman [facility] ECG 12-LEAD 2020-11-05 13:58:01 Blanco Hickman [facility] POCT-GLUCOSE METER 2020-11-05 11:47:00 Blanco Hickman [facility] POCT-GLUCOSE METER 2020-11-05 05:57:00 Blanco Hickman [facility] BASIC METABOLIC PANEL (7) 2020-11-05 05:42:00 Blanco Hickman [facility] MAGNESIUM 2020-11-05 05:42:00 Blanco Hickman [facility] PHOSPHORUS 2020-11-05 05:42:00 Blanco Hickman [facility] POCT-GLUCOSE METER 2020-11-05 00:33:00 Blanco Hickman [facility] POCT-GLUCOSE METER 2020-11-04 18:20:00 Blanco Hickman [facility] ANAEROBIC CULTURE 2020-11-04 16:19:16 Sarahi Asad [facility] AFB CULTURE + SMEAR 2020-11-04 16:19:[address] [facility] (NON-SPUTUM) [facility] FUNGUS CULTURE + SMEAR 2020-11-04 16:19:16 Sarahi [facility] SURGICALLY OBTAINED 2020-11-04 16:19:[address] [facility] CULTURE + GRAM STAIN Medical Carole ter SPIN/CONCENTRATION CHARGE 2020-11-04 16:19:00 Asad Mcclain [facility] I&D,ABSCESS ABDOMINAL 2020-11-04 15:30:00 Sarahi [facility] POCT-GLUCOSE METER 2020-11-04 11:29:00 Blanco Hickman [facility] POCT-GLUCOSE METER 2020-11-04 05:59:00 Blanco Hickman [facility] BASIC METABOLIC PANEL (7) 2020-11-04 04:17:00 Blanco Hickman [facility] MAGNESIUM 2020-11-04 04:17:00 Blanco Hickman [facility] PHOSPHORUS 2020-11-04 04:17:00 Blanco Hickman [facility] ABORH, MANUAL 2020-11-04 00:41:00 Genet Seaman [facility] POCT-GLUCOSE METER 2020-11-03 23:41:00 Blanco Hickman [facility] TYPE AND SCREEN, AUTOMATED 2020-11-03 20:06:00 Cristi Calloway [facility] POCT-GLUCOSE METER 2020-11-03 18:03:00 Blanco Hickman [facility] POCT-GLUCOSE METER 2020-11-03 11:20:00 Blanco Hickman [facility] POCT-GLUCOSE METER 2020-11-03 05:47:00 Blanco Hickman [facility] CBC W/PLT COUNT & AUTO 2020-11-03 05:04:00 Blanco Hickman [facility] CBC W/PLT COUNT & AUTO 2020-11-03 05:04:00 Blanco Hickman [facility] BASIC METABOLIC PANEL (7) 2020-11-03 05:03:00 Blanco Hickman [facility] MAGNESIUM 2020-11-03 05:03:00 Blanco Hickman [facility] PHOSPHORUS 2020-11-03 05:03:00 Blanco Hickman [facility] TRIGLYCERIDES 2020-11-03 05:03:00 Blanco Hickman [facility] POCT-GLUCOSE METER 2020-11-02 23:41:00 Blanco Hickman [facility] C. DIFFICILE GDH TOXIN 2020-11-02 20:23:00 Amanda Paredes CH, I [facility] POCT-GLUCOSE METER 2020-11-02 15:48:00 Blanco Hickman [facility] POCT-GLUCOSE METER 2020-11-02 11:24:00 Blanco Hickman [facility] POCT-GLUCOSE METER 2020-11-02 06:01:00 Jose Santoyo [facility] CBC W/PLT COUNT & AUTO 2020-11-02 05:04[facility] BASIC METABOLIC PANEL (7) 2020-11-02 05:04:00 Liza Santoyo sa [facility] CBC W/PLT COUNT & AUTO 2020-11-02 05:04:00 [facility] 2020-11-02 05:04:00 Liza Santoyo sa [facility] POCT-GLUCOSE METER 2020-11-01 20:13:00 [facility] XR CHEST 1 VIEW PORTABLE / 2020-11-01 12:14:00 Orlin Schmid [facility] BASIC METABOLIC PANEL (7) 2020-11-01 05:44:00 Liza Santoyo sa [facility] HEPATIC FUNCTION PANEL 2020-11-01 05:44:00 Jose Santoyo [facility] CBC W/PLT COUNT & AUTO 2020-11-01 05:44:00 [facility] DIFFERENTIAL [facility] CBC W/PLT COUNT & AUTO 2020-11-01 05:44:00 [facility] DI[facility] CT ABDOMEN/PELVIS WITH IV 2020-10-30 23:06:00 Rustam Garcia [facility] SARS-COV2/RT-PCR ([facility] & 2020-10-30 22:10:00 Rustam Garcia [facility] REF LABS) [facility] BLOOD CULTURE 2020-10-30 22:06:00 [facility] W/PLT COUNT & AUTO 2020-10-30 22:03:00 Rustam Garcia [facility] LACTIC ACID, VENOUS 2020-10-30 22:03:00 GarciaRustam [facility] COMPREHENSIVE METABOLIC 2020-10-30 22:03:[address] [facility] PROTHROMBIN TIME/INR 2020-10-30 22:03:00 Rustam Garcia [facility] APTT 2020-10-30 22:03:00 Rustam Garcia [facility] CBC W/PLT COUNT & AUTO 2020-10-30 22:03:00 Rustam Garcia [facility] BLOOD CULTURE 2020-10-30 22:03:00 GarciaRustam lindo [facility] BLOOD CULTURE 2020-10-30 22:03:00 GarciaRustam lindo [facility] ter Plan of Care Planned Activity Planned Date Details Comments Source Future Scheduled 2030-10-06 Screening for malignant [facility] Test 00:00:00 neoplasm of colon Medical Ce nter (procedure) [code = 034869198] Future Scheduled 2030-10-06 Screening for malignant [facility] Test 00:00:00 neoplasm of colon Medical Ce nter (procedure) [code = 201238514] Future Scheduled 2030-10-06 Screening for malignant [facility] Test 00:00:00 neoplasm of colon Medical Ce nter (procedure) [code = 018975816] Future Scheduled 2025-02-10 DTAP/TDAP/TD VACCINES [facility] 00:00:00 (2 - Td or Tdap) [code Medic al Center = DTAP/TDAP/TD VACCINES (2 - Td or Tdap)] Future Scheduled 2025-02-10 DTAP/TDAP/TD VACCINES [facility] 00:00:00 (2 - Td or Tdap) [code Medic al Center = DTAP/TDAP/TD VACCINES (2 - Td or Tdap)] Future Scheduled 2022-03-10 INFLUENZA VACCINE (#1) [facility] 00:[facility]00 [code = INFLUENZA Medical Ce nter VACCINE (#1)] Future Scheduled 2021-07-[address] [facility] Test 00:00:00 (12+) [code = Medical Center DEPRESSION SCREENING (12+)] Future Scheduled 2021-07-10 FALLS RISK SCREENING [facility] Test 00:00:00 [code = FALLS RISK Medical C enter SCREENING] Future Scheduled 2021-03-10 COVID-19 VACCINE (3 - [facility] 00:00:00 [facility]oster for [facility] series) [code = COVID-19 VACCINE (3 - Booster for [employer] series)] Future Scheduled 2021-03-10 INFLUENZA VACCINE (#1) [facility] 00:00:00 [code = INFLUENZA Medical Ce nter VACCINE (#1)] Future Scheduled 2020-07-[address] [facility] Test 00:00:00 (12+) [code = Medical Center DEPRESSION SCREENING (12+)] Future Scheduled 2020-07-10 FALLS RISK SCREENING [facility] Test 00:00:00 [code = FALLS RISK Medical C enter SCREENING] Future Scheduled 2019-12-13 PNEUMOCOCCAL 65+ YRS ([address] [facility] Test 00:00:00 - PCV) [code = Medical Cente r PNEUMOCOCCAL 65+ YRS (1 - PCV)] Future Scheduled 2019-12-13 PNEUMOCOCCAL 65+ YRS ([address] [facility] Test 00:00:00 of 1 - [id number] PCV13) [code = PNEUMOCOCCAL 65+ YRS (1 of 1 - [id number] PCV13)] Future Scheduled 2019-07-[address] [facility] 00:00:00 WELLNESS (YEAR 2 or Medical Center FIRST YEAR if no IPPE) [code = MEDICARE ANNUAL WELLNESS (YEAR 2 or FIRST YEAR if no IPPE)] Future Scheduled 2019-07-[address] [facility] 00:00:00 WELLNESS (YEAR 2 or Medical Center FIRST YEAR if no IPPE) [code = MEDICARE ANNUAL WELLNESS (YEAR 2 or FIRST YEAR if no IPPE)] Future Scheduled 2013-09-04 SHINGLES VACCINES ([address] [facility] Test 00:00:00 3) [code = SHINGLES Medical Center VACCINES (2 of 3)] Future Scheduled 2013-09-04 SHINGLES VACCINES ([address] [facility] 00:00:00 3) [code = SHINGLES Medical Center VACCINES (2 of 3)] Future Scheduled 1972 HEPATITIS C SCREENING [facility] 00:00:00 [code = HEPATITIS C Medical Center SCREENING] Future Scheduled 1972 HEPATITIS C [facility]CRE[facility]ING [facility] 00:00:00 [code = HEPATITIS C Medical Center SCREENING] Future Scheduled 1954 Screening for malignant [facility] Test 00:00:00 neoplasm of breast Medical C enter (procedure) [code = 596734823] Future Scheduled 1954 CT Colonography (combo) [facility] Test 00:00:00 [code = CT Colonography [facility] (combo)] Future Scheduled 1954 DXA SCAN [code = DXA [facility] Test 00:00:00 SCAN] [facility] Future Scheduled 1954 Screening for malignant [facility] Test 00:00:00 neoplasm of colon Medical Ce nter (procedure) [code = 040537425] Future Scheduled 1954 Screening for malignant [facility] Test 00:00:00 neoplasm of colon Medical Ce nter (procedure) [code = 628965956] Future Scheduled 1954 Sigmoidoscopy [code = [facility] 00:[facility] Sigmoidoscopy] Medical Cente r Future Scheduled 1954 Screening for malignant [facility] Test 00:00:00 neoplasm of breast Medical C enter (procedure) [code = 755463884] Encounters Start End Encounter Admission Attending Care Care Encounter Source Date/Time Date/Time Type Type Clinicians Facility Department ID 2022-03-05 Outpatient [id number] Memoria 13:26:49 [id number] -[id number] Félix [id number] 2021-04-01 Outpatient [id number] Memoria 14:46:56 [id number] -[id number] Félix [id number] 2020-05-02 [id number] 13:29:00 [id number] [facility] 2022-03-23 2022-03-23 Outpatient MAYRA JOY [id number] Mayra 11:15:00 11:15:00 JENSEN Seybol d 2022-03-01 2022-03-01 Outpatient MAYRA BAUER [id number] [place]ra 10:00:00 10:00:00 ILDEFONSO Seybol d 2022-02-28 2022-02-28 Outpatient MAYRA BAUER [id number] Mayra 00:00:00 00:00:00 ILDEFONSO Seybol d 2022-02-16 2022-02-16 Outpatient MAYRA SHEETS [id number] Mayra 15:15:00 15:15:00 AHMED Seybol d 2022-02-14 2022-02-14 Outpatient YASMIN ENRIQUEZ [id number] [place] 00:00:00 00:00:00 ROSSY LEVI Se ybold 2022-02-09 2022-02-09 Outpatient MAYRA OLIVER [id number] Mayra 00:00:00 00:00:00 ELIAN Seybol d 2022-02-07 2022-02-07 Outpatient MAYRA JOY [id number] Mayra 00:00:00 00:00:00 JENSEN Seybol d 2022-02-07 2022-02-07 Outpatient MAYRA JOY [id number] Mayra 00:00:00 00:00:00 JENSEN Seybol d 2022-02-03 2022-02-03 Outpatient MAYRA TUCKER [id number] Mayra 00:00:00 00:00:00 FARTUN Seybol d 2022-02-01 2022-02-01 Outpatient MAYRA BAUER [id number] Mayra 00:00:00 00:00:00 ILDEFONSO Seybol d 2022-01-31 2022-01-31 Outpatient MAYRA JOY [id number] [place]ra 00:00:00 00:00:00 JENSEN Seybol d 2022-01-26 2022-01-26 Outpatient MAYRA BAUER [id number] Mayra 00:00:00 00:00:00 ILDEFONSO Seybol d 2022-01-25 2022-01-25 Outpatient EDDIE LOPEZ [id number] Mayra 10:45:00 10:45:00 Seybol d 2022-01-21 2022-01-21 Outpatient MAYRA BAUER [id number] Mayra 00:00:00 00:00:00 ILDEFONSO Seybol d 2022-01-20 2022-01-20 Outpatient MAYRA BAURE [id number] Mayra 00:00:00 00:00:00 ILDEFONSO Seybol d 2022-01-19 2022-01-19 Outpatient MAYRA BAUER [id number] Mayra 00:00:00 00:00:00 ILDEFONSO Seybol d 2022-01-11 2022-01-11 Outpatient MAYRA BAUER [id number] [place]ra 00:00:00 00:00:00 ILDEFONSO Seybol d 2022-01-07 2022-01-07 Outpatient LAB90 MAYRA ENRIQUEZ [id number] Mayar 10:15:00 10:15:00 Seybol d 2022-01-07 2022-01-07 Office Eddie Bauer [id number] Mayra 09:15:00 10:00:00 Visit Ildefonso Ng 350.1.13.13 Se ybmirella Dubose 1.2.7.2.686 [id number] 2022-01-05 2022-01-05 Outpatient MAYRA JOY [id number] Mayra 00:00:00 00:00:00 JENSEN Seybol d 2021-12-13 2021-12-13 Outpatient BENITA, MAYRA ENRIQUEZ [id number] Mayra 00:00:00 00:00:00 JENSEN Seybol d 2021-12-10 2021-12-10 Office Benita, MIA [id number] Mayra 11:45:00 12:00:00 Visit Jensensaman ODELL 350.1.13.13 Se ybold 1.2.7.2.686 [id number] 2021-12-02 2021-12-02 Outpatient MAYRA BAUER [id number] Mayra 00:00:00 00:00:00 ILDEFONSO Seybol d 2021-12-02 2021-12-02 Outpatient MAYRA ESPINOZA [id number] Mayra 00:00:00 00:00:00 MUHAMMED Seybo ld 2021-11-25 2021-11-25 Outpatient MAYRA BAUER [id number] Mayra 09:00:00 09:00:00 ILDEFONSO Seybol d 2021-11-18 2021-11-18 Outpatient LAB90 MAYRA ENRIQUEZ [id number] Mayra 14:40:00 14:40:00 Seybol d 2021-11-18 2021-11-18 Office Eddie Bauer 1.2.840.114 [id number] Mayra 14:00:00 14:15:00 Visit Ildefonso Ng 350.1.13.13 Se ybold Somogyi 1.2.7.2.686 [id number] 2021-11-15 2021-11-15 Outpatient MAYRA JOY [id number] Mayra 00:00:00 00:00:00 JENSEN Seybol d 2021-11-11 2021-11-11 Office Eddie Bauer 1.2.840.114 [id number] Mayra 10:45:00 11:00:00 Visit Ildefonso Ng 350.1.13.13 Se ybold Somogyi 1.2.7.2.686 [id number] 2021-11-03 2021-11-03 Outpatient EITAN EITAN MEJIA [id number] [facility]inic 11:40:00 11:40:00 ROBERTO sarmientoWork s MAISHA 2021-10-26 2021-10-26 Office MIA Tucker 1.2.840.114 [id number] Mayra 11:00:00 11:15:00 Visit Suad ODELL 350.1.13.13 Seybold 1.2.7.2.686 [id number] 2021-10-18 2021-10-18 Outpatient MAYRA JOY [id number] Mayra 00:00:00 00:00:00 JENSEN Seybol d 2021-10-06 2021-10-06 Outpatient EITAN EITAN MEJIA [id number] [facility]Clinic 10:40:00 10:40:00 ROBERTO Henry s MAISHA 2021-09-26 2021-09-26 Outpatient YASMIN ENRIQUEZ [id number] Mayra 00:00:00 00:00:00 ROSSY LEVI Se 2021-09-26 2021-09-26 Outpatient MAYRA BAUER [id number] Mayra 00:00:00 00:00:00 ILDEFONSO Seybol d 2021-09-17 2021-09-17 Outpatient MAYRA JOY [id number] Mayra 00:00:00 00:00:00 JENSEN Seybol d 2021-09-17 2021-09-17 Outpatient YASMIN ENRIQUEZ [id number] Mayra 00:00:00 00:00:00 BETTY ROSSY ybold 2021-09-13 2021-09-13 Outpatient EDDIE LOPEZ [id number] Mayra 14:00:00 14:00:00 Seybol d 2021-09-13 2021-09-13 Outpatient MAYRA JOY [id number] Mayra 00:00:00 00:00:00 JENSEN Seybol d 2021-09-10 2021-09-10 Outpatient MAYRA JOY [id number] Mayra 00:00:00 00:00:00 JENSEN Seybol d 2021-09-09 2021-09-09 Outpatient EITAN EITAN MEJIA [id number] [facility]inic 10:20:00 10:20:00 ROBERTO FERRERA alWork s PA 2021-09-08 2021-09-08 Office MIA Joy 1.2.840.114 [id number] Mayra 11:45:00 12:00:00 Visit [facility] 350.1.13.13 Se louis 1.2.7.2.686 [id number] 2021-09-08 2021-09-08 Outpatient MAYRA TUCKER [id number] Mayra 10:30:00 10:30:00 SUAD Seybol d 2021-09-08 2021-09-08 Outpatient MAYRA JOY [id number] Mayra 00:00:00 00:00:00 JENSEN Seybol d 2021-08-29 2021-08-29 Outpatient YASMIN ENRIQUEZ [id number] Mayra 00:00:00 00:00:00 EYROSSY Se ybmirella 2021-08-28 2021-08-28 Outpatient YASMIN ENRIQUEZ [id number] Mayra 00:00:00 00:00:00 EYROSSY Se ybold 2021-08-24 2021-08-24 Outpatient EITAN EITAN MEJIA [id number] [facility]inic 13:02:00 13:02:00 ROBERTO FERRERA alWork s PA 2021-08-24 2021-08-24 Outpatient EITAN EITAN MEJIA [id number] [facility]Clinic 08:20:00 08:20:00 ROBERTO sarmientoWork s PA 2021-08-24 2021-08-24 Outpatient MAYRA JOY [id number] Mayra 00:00:00 00:00:00 JENSEN Seybol d 2021-08-23 2021-08-23 Outpatient YASMIN ENRIQUEZ [id number] Mayra 00:00:00 00:00:00 EYROSSY Se ybold 2021-08-20 2021-08-20 Outpatient EITAN EITAN MEJIA [id number] eClinic 11:58:00 11:58:00 ROBERTO FERRERA alWork s PA 2021-08-19 2021-08-19 Outpatient MAYRA ENRIQUEZ [id number] Mayra 07:10:00 07:10:00 Seybol d 2021-08-19 2021-08-19 Outpatient KORTNEY MAYRA ENRIQUEZ [id number] Mayra 06:30:00 06:30:00 AHMED Seybol d 2021-08-18 2021-08-18 Outpatient KORTNEY MAYRA ENRIQUEZ [id number] Mayra 00:00:00 00:00:00 AHMED Seybol d 2021-08-18 2021-08-18 Outpatient LUTHER MAYRA ENRIQUEZ [id number] Mayra 00:00:00 00:00:00 ADRYENE Seybol d 2021-08-17 2021-08-17 Outpatient NICHELLEMAYRA [id number] Mayra 00:00:00 00:00:00 DEANDRE Seybol d 2021-08-16 2021-08-16 Outpatient EITAN EITAN MJEIA [id number] [facility]Clinic 16:40:00 16:40:00 ROBERTO CROSS MD PA alWork s PA 2021-08-11 2021-08-11 Outpatient EITAN EITAN MEJIA [id number] [facility]Clinic 15:06:00 15:06:00 ROBERTO CROSS MD PA alWork s PA 2021-08-10 2021-08-10 Outpatient EITAN EITAN MEJIA [id number] eClinic 08:30:00 08:30:00 ROBERTO FERRERA alWork s PA 2021-08-05 2021-08-05 Outpatient RENEA SANDRINEEsperanza ENRIQUEZ [id number] Mayra 00:00:00 00:00:00 Seybol d 2021-07-29 2021-07-29 Outpatient MAYRA ENRIQUEZ [id number] Mayra 00:00:00 00:00:00 Seybol d 2021-07-28 2021-07-28 Office Eddie Bauer 1.2.840.114 [id number] Mayra 10:45:00 11:00:00 Visit Ildefonso Ng 350.1.13.13 Se missy Dubose 1.2.7.2.686 [id number] 2021-07-28 2021-07-28 Outpatient AMYRA JOY [id number] Mayra 00:00:00 00:00:00 JENSEN Seybol d 2021-07-27 2021-07-27 Outpatient MAYRA TUCKER [id number] Mayra 00:00:00 00:00:00 SUAD Seybol d 2021-07-19 2021-07-19 Outpatient YASMIN MAYRA ENRIQUEZ [id number] Mayra 00:00:00 00:00:00 EYROSSY Se ybold 2021-07-14 2021-07-14 Outpatient YASMIN MAYRA ENRIQUEZ [id number] Mayra 00:00:00 00:00:00 EYJABIERROSSY Se ybold 2021-07-13 2021-07-13 Outpatient MAYRA ENRIQUEZ [id number] Mayra 11:00:00 11:00:00 Seybol d 2021-07-13 2021-07-13 Office MIA Sheets [id number] [id number] Mayra 09:45:00 10:00:00 Visit [facility] 350.1.13.13 Se ybold 1.2.7.2.686 [id number] 2021-07-13 2021-07-13 Outpatient MAYRA SHEETS [id number] Mayra 00:00:00 00:00:00 AHMED Seybol d 2021-07-13 2021-07-13 Outpatient MAYRA ENRIQUEZ [id number] Mayra 00:00:00 00:00:00 Seybol d 2021-07-05 2021-07-05 Outpatient MAYRA LITTLE [id number] Mayra 10:45:00 10:45:00 LEY Josepho ld 2021-06-30 2021-06-30 Outpatient MAYRA CHERRY [id number] Mayra 00:00:00 00:00:00 GENEVA Doeybo ld 2021-06-30 2021-06-30 Outpatient MAYRA CHERRY [id number] Mayra 00:00:00 00:00:00 GENEVA Doeybo ld 2021-06-28 2021-06-28 Outpatient EDDIE LOPEZ [id number] Mayra 13:30:00 13:30:00 Seybol d 2021-06-28 2021-06-28 Outpatient BENITA MAYRA ENRIQUEZ [id number] Mayra 00:00:00 00:00:00 JENSEN Seybol d 2021-06-24 2021-06-24 Outpatient BENITA MAYRA ENRIQUEZ [id number] Mayra 00:00:00 00:00:00 JENSEN Seybol d 2021-06-24 2021-06-24 Outpatient BENITA MAYRA ENRIQUEZ [id number] Mayra 00:00:00 00:00:00 JENSEN Seybol d 2021-06-23 2021-06-23 Outpatient INJ MAYRA ENRIQUEZ [id number] Mayra 10:30:00 10:30:00 PEARLAND Seybo ld 2021-06-23 2021-06-23 Outpatient BENITA MAYRA ENRIQUEZ [id number] Mayra 00:00:00 00:00:00 JENSEN Seybol d 2021-06-17 2021-06-17 Outpatient BENITA, MAYRA ENRIQUEZ [id number] Mayra 00:00:00 00:00:00 JENSEN Seybol d 2021-06-11 2021-06-11 Outpatient VANDANA-TYRA ENRIQUEZ [id number] Mayra 00:00:00 00:00:00 ROSSY LEVI Se ybold 2021-06-11 2021-06-11 Outpatient YASMIN ENRIQUEZ [id number] Mayra 00:00:00 00:00:00 ROSSY LEVI Se ybold 2021-06-10 2021-06-10 Office Benita MAIN 1.2.840.114 [id number] Mayra 13:45:00 14:00:00 Visit [facility] 350.1.13.13 Se ybold 1.2.7.2.686 [id number] 2021-06-10 2021-06-10 Outpatient MAYRA ENRIQUEZ [id number] Mayra 11:30:00 11:30:00 Seybol d 2021-06-09 2021-06-09 Office MIA Sheets [id number] Mayra 13:00:00 13:15:00 Visit [facility] 350.1.13.13 ybold 1.2.7.2.686 [id number] 2021-06-09 2021-06-09 Outpatient MAYRA SHEETS [id number] Mayra 13:00:00 13:00:00 AHMED Seybol d 2021-06-09 2021-06-09 Outpatient EITAN EITAN MEJIA [id number] eClinic 08:30:00 08:30:00 ROBERTO Henry s MAISHA 2021-06-02 2021-06-02 Outpatient MAYRA JOY [id number] [place]ra 00:00:00 00:00:00 JENSEN Seybol d 2021-05-26 2021-05-26 Outpatient MAYRA ENRIQUEZ [id number] Mayra 13:45:00 13:45:00 Seybol d 2021-05-07 2021-05-07 Outpatient MAYRA JOY [id number] Mayra 00:00:00 00:00:00 JENSEN Seybol d 2021-05-06 2021-05-06 Outpatient EITAN EITAN MEJIA [id number] eClinic 09:20:00 09:20:00 ROBERTO Henry s MAISHA 2021-04-29 2021-04-29 Outpatient MAYRA ENRIQUEZ [id number] Mayra 10:45:00 10:45:00 Seybol d 2021-04-16 2021-04-16 Outpatient MAYRA ENRIQUEZ [id number] Mayra 14:30:00 14:30:00 Seybol d 2021-04-09 2021-04-09 Outpatient MAYRA JOY [id number] Mayra 00:00:00 00:00:00 JENSEN Seybol d 2021-04-08 2021-04-08 Outpatient EITAN EITAN MEJIA [id number] eClinic 08:40:00 08:40:00 ROBERTO FERRERA 2021-04-01 2021-04-01 Outpatient LAB47 MAYRA ENRIQUEZ [id number] Mayra 15:30:00 15:30:00 Seybol d 2021-04-01 2021-04-01 Office ELY Howard 1.2.840.114 [id number] Mayra 14:45:45 15:00:45 Visit Skyler 350.1.13.13 missy 1.2.7.2.686 [id number] 2021-03-12 2021-03-12 Outpatient MAYRA JOY [id number] Mayra 00:00:00 00:00:00 JENSEN Seybol d 2021-03-10 2021-03-10 Outpatient MAYRA SHEETS [id number] Mayra 10:45:00 10:45:00 AHMED Seybol d 2021-03-04 2021-03-04 Outpatient MAYRA JOY [id number] Mayra 13:45:00 13:45:00 JENSEN Seybol d 2021-03-03 2021-03-03 Outpatient STAR ENRIQUEZ [id number] Mayra 00:00:00 00:00:00 MD NORAH Seybol d 2021-02-12 2021-02-12 Outpatient MAYRA TOTH [id number] Mayra 00:00:00 00:00:00 FAYYAZ Seybol d 2021-02-12 2021-02-12 Outpatient MAYRA TOTH [id number] [place]ra 00:00:00 00:00:00 FAYYAZ Seybol d 2021-02-08 2021-02-08 Outpatient EITAN EITAN MEJIA [id number] eClinic 11:22:00 11:22:00 ROBERTO Henry s PA 2021-02-05 2021-02-05 Outpatient MAYRA ENRIQUEZ [id number] Mayra 10:00:00 10:00:00 Seybol d 2021-02-05 2021-02-05 Outpatient EITAN EITAN MEJIA [id number] eClinic 08:45:00 08:45:00 ROBERTO Henry s MAISHA 2021-01-25 2021-01-25 Outpatient LAB47 MAYRA ENRIQUEZ [id number] Mayra 15:15:00 15:15:00 Seybol d 2021-01-25 2021-01-25 Outpatient MAYRA MICHAEL [id number] Mayra 14:30:00 14:30:00 ROSSI Josephol baljinder 2021-01-19 2021-01-19 Outpatient VANDANABoniTYRA MAYRA ENRIQUEZ [id number] Mayra 00:00:00 00:00:00 ROSSY LEVI Se 2021-01-15 2021-01-15 Outpatient MAYRA JOY MAYRA [id number] Mayra 00:00:00 00:00:00 JENSEN Sekanuol d 2020-12-11 2020-12-11 Outpatient EITAN EITAN MEJIA [id number] eClinic 09:20:00 09:20:00 ROBERTO Henry s MAISHA 2020-11-11 2020-11-11 Outpatient EIATN EITAN MEJIA [id number] eClinic 09:00:00 09:00:00 ROBERTO FERRERA 2020-10-30 2020-11-07 Hospital ER Rustam Garcia [facility] [id number] 20:55:00 14:16:00 [facility] 2020-11-04 2020-11-04 Surgery Sarahi, [facility] [id number] [facility] 15:45:00 17:20:00 [facility] 2020-11-04 2020-11-04 Anesthesia Buddy, [facility] [id number] 15:45:00 16:49:[address] [facility] 2020-10-30 2020-10-30 Emergency ER [facility] [id number] [facility] 20:54:00 20:54:00 2020-10-30 2020-10-30 Travel [facility] [id number] [facility]00 [facility] 2020-10-12 2020-10-12 Outpatient EITAN EITAN MEJIA [id number] eClinic 14:30:00 14:30:00 ROBERTO FERRERA 2020-09-09 2020-09-09 Outpatient EITAN EITAN MEJIA [id number] eClinic 14:00:00 14:00:00 ROBERTO CROSS MD PA alWork s PA 2020-08-12 2020-08-12 Outpatient EITAN EITAN MEJIA [id number] eClinic 15:30:00 15:30:00 ROBERTO CROSS MD PA alWork s PA 2020-07-08 2020-07-08 Outpatient Eitan Eitan Mejia [id number] eClinic 14:36:00 14:36:00 Roberto CROSS MD PA alWork s PA 2020-07-01 2020-07-01 Outpatient EITAN EITAN MEJIA [id number] eClinic 15:00:00 15:00:00 ROBERTO CROSS MD PA alWork s PA 2020-06-29 2020-06-29 Outpatient Eitan Eitan Mejia [id number] eClinic 15:24:00 15:24:00 Roberto CROSS MD PA alWork s PA 2020-06-09 2020-06-09 Outpatient EITAN EITAN MEJIA [id number] eClinic 09:45:00 09:45:00 ROBERTO CROSS MD PA alWork s PA 2020-05-14 2020-05-14 Outpatient EITAN EITAN MEJIA [id number] eClinic 10:30:00 10:30:00 ROBERTO CROSS MD PA alWork s PA 2020-04-21 2020-04-21 Outpatient EITAN EITAN MEJIA [id number] eClinic 10:30:00 10:30:00 ROBERTO CROSS MD PA alWork s PA 2020-02-25 2020-02-25 Outpatient EITAN EITAN MEJIA [id number] eClinic 11:00:00 11:00:00 ROBERTO CROSS MD PA alWork s PA 2020-01-27 2020-01-27 Outpatient EITAN EITAN MEJIA [id number] eClinic 10:30:00 10:30:00 ROBERTO CROSS MD PA alWork s PA 2019-12-30 2019-12-30 Outpatient EITAN EITAN MEJIA [id number] eClinic 09:45:00 09:45:00 ROBERTO CROSS MD PA alWork s PA 2019-12-06 2019-12-06 Outpatient EITAN EITAN MEJIA [id number] eClinic 09:30:00 09:30:00 ROBERTO CROSS MD PA alWork s PA 2019-11-18 2019-11-18 Outpatient Eitan Eitan Mejia [id number] eClinic 15:01:00 15:01:00 Roberto CROSS MD PA alWork s PA 2019-11-08 2019-11-08 Outpatient Eitan Eitan Mejia [id number] eClinic 09:15:00 09:15:00 Roberto CROSS MD PA alWork s PA 2019-11-06 2019-11-06 Outpatient EITAN EITAN MEJIA [id number] eClinic 11:30:00 11:30:00 ROBERTO CROSS MD PA alWork s PA 2019-10-07 2019-10-07 Outpatient EITAN EITAN MEJIA [id number] eClinic 12:15:00 12:15:00 ROBERTO CROSS MD PA alWork s PA 2019-09-09 2019-09-09 Outpatient EITAN EITAN MEJIA [id number] eClinic 13:45:00 13:45:00 ROBERTO CROSS MD PA alWork s PA 2019-07-16 2019-07-16 Outpatient EITAN EITAN MEJIA [id number] eClinic 14:45:00 14:45:00 ROBERTO CROSS MD PA alWork s PA 2019-06-10 2019-06-10 Outpatient 2.16.840. [id number] eClinic 15:58:00 15:58:00 [id number] alWorks [id number] 2019-06-10 2019-06-10 Outpatient EITAN EITAN MEJIA [id number] e[facility]inic 15:00:00 15:00:00 ROBERTO CROSS MD PA alWork s PA Results Test Description Test Time Test Comments Results Result Comments Source AFB culture + smear (non-sputum) 2020-12-24 15:38:00 Test Item Value Reference Range Interpretation Comme nts Result (test code = 6463-4) No acid-fast bacilli isolated in 42 day s AFB Smear (test code = 07158-4) No acid [facility]illi [facility]2020-12-24 15:38:00 Test Item Value Reference Range Interpretation Comments CULTURE (BEAKER) (test No acid-fast bacilli code = 1095) isolated in 42 days AFB SMEAR (BEAKER) No acid fast bacilli (test code = 994) seen Fungus culture + [id number] 00:34:00 Test Item Value Reference Range Interpretation Comments Result (test code = No fungus isolated in 6463-4) 28 days Fungus Smear (test No fungi seen code = 1406) [facility] [id number] 00:34:00 Test Item Value Reference Range Interpretation Comments CULTURE (BEAKER) (test No fungus isolated in code = 1095) 28 days FUNGUS SMEAR (BEAKER) No fungi seen (test code = 1406) Anaerobic [id number] 07:45:00 Test Item Value Reference Range Interpretation Comments Result (test code = No anaerobes isolated 6463-4) [facility] [id number] 07:45:00 Test Item Value Reference Range Interpretation Comments CULTURE (BEAKER) (test No anaerobes isolated code = 1095) POC-Glucose [id number] 11:29:00 Test Item Value Reference Range Interpretation Comments POC-Glucose Meter (test 102 mg/dL 70-110 : TE STED AT [facility] code = 1538) [address] [facility], 770 30: Seasoning Sprayer/Techni fan ID = [id number] for WHITLEY DEMPSEY Lab Interpretation (test Normal code = 06011-8) [facility] [id number] 11:29:00 Test Item Value Reference Range Interpretation Comments POC-GLUCOSE METER 102 mg/dL 70-110 : TESTED A T [facility] 6720 (BEAKER) (test code = WENDY Howe [facility], 1538) [address]: Seasoning Sprayer/Techni fan ID = [id number] for WHITLEY LOZANO SARS-CoV2/RT-PCR (Asymptomatic ONLY)2020-11-07 11:03:00 Test Item Value Reference Range Interpretation Comments SARS-COV2/RT-PCR Negative Not Detected, (test code = Negative, See 95925-6) external report for linked test SARS-COV-2 [facility] PERFORMING LAB (test code = 28723-8) MARCELA (test code = Negative result for [...] of the Act. Fact Sheet for Healthcare Providers:https://www.[employer]/sites/default/f candice/product/documents/F act_Sheet_HC_Providers_L eot_FINH-BrU-7.pdf Fact Sheet for Healthcare Patients:https://www.angelMD/sites/default/fi les/product/documents/Fa ct_Sheet_Patients_Lyra_S ARS-CoV-2.pdf Performing Laboratory:[facility], [place] [address] [place], [place] [address]ARS-COV2/RT-PCR ([facility])2020-11-07 11:03:00 Test Item Value Reference Range Interpretation Comments SARS-COV2/RT-PCR (test Negative Not Detected, Negative, code = 0821934) See external report for linked test SARS-COV-2 PERFORMING LAB [facility] (test code = 9451776) Negative result for this test determines that [...] of the Act.Fact Sheet for Healthcare Prov iders:https://www.Aria Analytics/sites/default/files/product/documents/Fact_Sheet_HC _Bqiknbrsw_Oizp_DXRI-PbV-8.pdfFact Sheet for Healthcare Patients:[email or web address]://www.[employer]/sites/default/files/product/docume nts/Pjki_Nigwz_Gugayhbe_Unor_THSO-CsV-3.pdfPerforming Laboratory:[facility].[place], [place] [address]UYUMUTSKLC OBTAINED CULTURE + GRAM [id number] 10:18:00 Test Item Value Reference Range Interpretation [...] gram negative (BEAKER) (test code = rods 009817) POCT-GLUCOSE [id number] 07:18:00 Test Item Value Reference Range Interpretation Comments POC-GLUCOSE METER 88 mg/dL 70-110 : TESTED A T [facility] ([facility]) (test code = [facility], [facility]) [address]: Seasoning Sprayer/Techni fan ID = [id number] for STERLING EN, WHITLEY POCT-GLUCOSE [id number] 21:15:00 Test Item Value Reference Range Interpretation Comments POC-GLUCOSE METER 90 mg/dL 70-110 : TESTED A T [facility] (BEAKER) (test code = [facility], [facility]) 614[address]: Seasoning Sprayer/Techni fan ID = [id number] for SEMI EN, ISRRAEL POCT-GLUCOSE [id number] 16:43:00 Test Item Value Reference Range Interpretation Comments POC-GLUCOSE METER 93 mg/dL 70-110 : TESTED A T [facility] 6720 (BEAKER) (test code = [facility], 153) 1960[address]: Seasoning Sprayer/Techni fan ID = [id number] for STERLING EN, WHITLEY POCT-GLUCOSE [id number] 11:31:00 Test Item Value Reference Range Interpretation Comments POC-GLUCOSE METER 93 mg/dL 70-110 : TESTED A T [facility] (BEAKER) (test code = [facility], 153) 16719: Seasoning Sprayer/Techni fan ID = [id number] for STERLING EN, WHITLEY POCT-GLUCOSE [id number] 08:06:00 Test Item Value Reference Range Interpretation Comments POC-GLUCOSE METER 95 mg/dL 70-110 : TESTED A T [facility]20 (BEAKER) (test code = [facility], 153) 68763: Seasoning Sprayer/Techni fan ID = [id number] for WHITLEY SOLIS POCT-GLUCOSE [id number] 00:16:00 Test Item Value Reference Range Interpretation Comments POC-GLUCOSE METER 116 mg/dL 70-110 H : TESTED A T [facility] (BEAKER) (test code = [facility], 1538) 78319: Seasoning Sprayer/Techni fan ID = [id number] for Abi Flores POCT-GLUCOSE [id number] 19:10:00 Test Item Value Reference Range Interpretation Comments POC-GLUCOSE METER 84 mg/dL 70-110 : TESTED A T [facility]20 (BEAKER) (test code = [facility], 1538) 08057: Seasoning Sprayer/Techni fan ID = [id number] for HUMBERTO ALFRED SPIN/CONCENTRATION [id number] 14:30:00 Test Item Value Reference Range Interpretation Comments Concentration charged (test code = Done 2657) [facility] [id number] 14:30:00 Test Item Value Reference Range Interpretation Comments CONCENTRATION CHARGED (BEAKER) (test Done code = 2657) POCT-GLUCOSE [id number] 12:14:00 Test Item Value Reference Range Interpretation Comments POC-GLUCOSE METER 171 mg/dL 70-110 H : TESTED A T [facility]20 (BEAKER) (test code = [facility], 1538) 48101: Seasoning Sprayer/Techni fan ID = [id number] for HUMBERTO CRAIN Basic Metabolic [id number] 06:51:00 Test Item Value Reference Range Interpretation Comments Sodium (test code = 142 meq/L 854-359 7356-2) Potassium (test code = 4.5 meq/L 3.5-5.1 2823-3) Chloride (test code = 108 meq/L 98-107 H 5-0) CO2 (test code = 25 meq/L -8-9) BUN (test code = 17 mg/dL 7-21 3094-0) Creatinine (test code 0.58 mg/dL 0.57-1.25 = 2160-0) Glucose (test code = 118 mg/dL 70-105 H 2345-7) Calcium (test code = 9.5 mg/dL 8.4-10.2 48145-0) EGFR (test code = 126 mL/min/1.73 [place] [address]-4) NOT ACCURATE CREATININE CLEARANCE IN PREDICTING GLOMERULAR FILTRATION RATE . ESTIMATED GFR I S NOT APPLICABLE FOR DIALYSIS PATIENTS. MARCELA (test code = MARCELA) Seasoning Sprayer ID - HEIDY M Lab Interpretation Abnormal (test code = 90347-8) [facility] 06:51:00 Test Item Value Reference Range Interpretation Comments Magnesium (test code = 2.4 mg/dL 1.6-2.6 63314-1) MARCELA (test code = MARCELA) Seasoning Sprayer ID - HEIDY M Lab Interpretation (test Normal code = 13603-7) [facility]21-[facility] 06:51:00 Test Item Value Reference Range Interpretation Comments Phosphorus (test code = 2.8 mg/dL 2.3-4.7 2777-1) MARCELA (test code = MARCELA) Seasoning Sprayer ID - HEIDY M Lab Interpretation (test Normal code = 91125-4) [facility] Hospital[facility]IC [facility]OLIC [id number] 06:51:00 Test Item Value Reference Range Interpretation Comments SODIUM (BEAKER) 142 meq/L 136-145 (test code = 381) POTASSIUM (BEAKER) 4.5 meq/L 3.5-5.1 (test code = 379) CHLORIDE (BEAKER) 108 meq/L 98-107 H (test code = 382) CO2 (BEAKER) (test 25 meq/L - code = 355) BLOOD UREA NITROGEN 17 mg/dL 7- (BEAKER) (test code = 354) CREATININE (BEAKER) [...] S NOT APPLICABLE FOR DIALYSIS PATIEN TS. Seasoning Sprayer ID - HEIDY [id number] 06:51:00 Test Item Value Reference Range Interpretation Comments MAGNESIUM (BEAKER) (test code = 2.4 mg/dL 1.6-2.6 627) Seasoning Sprayer ID - HEIDY [id number] 06:51:00 Test Item Value Reference Range Interpretation Comments PHOSPHORUS (BEAKER) (test code = 2.8 mg/dL 2.3-4.7 604) Seasoning Sprayer ID - HEIDY MPOCT-GLUCOSE [id number] 06:09:00 Test Item Value Reference Range Interpretation Comments POC-GLUCOSE METER 137 mg/dL 70-110 H : TESTED A T [facility] (BEAKER) (test code = [facility], [facility]) 93149: Seasoning Sprayer/Techni fan ID = [id number] for GR AHAM, TAYLA POCT-GLUCOSE [id number] 00:45:00 Test Item Value Reference Range Interpretation Comments POC-GLUCOSE METER 182 mg/dL 70-110 H : TESTED A T [facility] 6720 (BEAKER) (test code = [facility], [facility]8) 72232: Seasoning Sprayer/Techni fan ID = [id number] for GR AHAM, TAYLA POCT-GLUCOSE [id number] 18:31:00 Test Item Value Reference Range Interpretation Comments POC-GLUCOSE METER 140 mg/dL 70-110 H : TESTED A T [facility] (BEAKER) (test code = [facility], [facility]8) 48827: Seasoning Sprayer/Techni fan ID = [id number] for DA VIS, KEYAIRA POCT-GLUCOSE [id number] 12:33:00 Test Item Value Reference Range Interpretation Comments POC-GLUCOSE METER 137 mg/dL 70-110 H : TESTED A T [facility] (BEAKER) (test code = [facility], [facility]8) 55729: Seasoning Sprayer/Techni fan ID = [id number] for TH OMPSON, HUMBERTO POCT-GLUCOSE [id number] 06:09:00 Test Item Value Reference Range Interpretation Comments POC-GLUCOSE METER 122 mg/dL 70-110 H : TESTED A T [facility]20 (BEAKER) (test code = [facility] [address] [place], 1538) 100[address]: Seasoning Sprayer/Techni fan ID = [id number] for JANAY SILVA BASIC METABOLIC [id number] 04:55:00 Test Item Value Reference Range Interpretation [...] S NOT APPLICABLE FOR DIALYSIS PATIEN TS. Seasoning Sprayer ID - CARA [id number] 04:55:00 Test Item Value Reference Range Interpretation Comments MAGNESIUM (BEAKER) (test code = 2.1 mg/dL 1.6-2.6 627) Seasoning Sprayer ID - CARA [id number] 04:55:00 Test Item Value Reference Range Interpretation Comments PHOSPHORUS (BEAKER) (test code = 2.1 mg/dL 2.3-4.7 L 604) Seasoning Sprayer ID - CARA ROSALES, [id number] 01:09:00 Test Item Value Reference Range Interpretation Comments Rh Factor (test code = 2589) NEG ABO Grouping (test code = 2588) A [facility] HospitalPOCT[facility]SE [id number] 23:52:00 Test Item Value Reference Range Interpretation Comments POC-GLUCOSE METER 123 mg/dL 70-110 H : TESTED A T [facility]20 (BEAKER) (test code = [facility], 1538) 45616: Seasoning Sprayer/Techni fan ID = [id number] for JANAY SILVA Type and screen, [id number] 22:05:00 Test Item Value Reference Range Interpretation Comments ABO/RH AUTOMATED (BEAKER) (test A NEGATIVE code = 2260) Ab Scrn (test code = 890-4) NEGATIVE [facility] HospitalPOCT[facility]UCOSE [id number] 18:14:00 Test Item Value Reference Range Interpretation Comments POC-GLUCOSE METER 187 mg/dL 70-110 H : TESTED A T [facility] (BEAKER) (test code = [facility], 1538) 61735: Seasoning Sprayer/Techni fan ID = [id number] for Ag batah, Mckenzie POCT-GLUCOSE [id number] 11:31:00 Test Item Value Reference Range Interpretation Comments POC-GLUCOSE METER 110 mg/dL 70-110 : TESTED A T [facility] (BEAKER) (test code = [facility], 1538) 05095: Seasoning Sprayer/Techni fan ID = [id number] for Ag batah, Mckenzie POCT-GLUCOSE [id number] 05:59:00 Test Item Value Reference Range Interpretation Comments POC-GLUCOSE METER 116 mg/dL 70-110 H : TESTED A T [facility] (BEAKER) (test code = [facility], 1538) 91297: Seasoning Sprayer/Techni fan ID = [id number] for CHADWAGNERISRRAEL [id number] 05:51:00 Test Item Value Reference Range Interpretation Comments Triglycerides (test 167 mg/dL code = 2571-8) MARCELA (test code = MARCELA) TRIGLYCERIDE REFERENCE RANGELow Risk <150Borderline Risk 150-199High Risk 200-499Very High Risk >=500Operator ID - HEIDY Toth [facility] HospitalBASI METABOLIC [id number] 05:51:00 Test Item Value Reference Range Interpretation [...] S NOT APPLICABLE FOR DIALYSIS PATIEN TS. Seasoning Sprayer ID - HEIDY [id number] 05:51:00 Test Item Value Reference Range Interpretation Comments MAGNESIUM (BEAKER) (test code = 1.7 mg/dL 1.6-2.6 627) Seasoning Sprayer ID - HEIDY [id number] 05:51:00 Test Item Value Reference Range Interpretation Comments PHOSPHORUS (BEAKER) (test code = 2.5 mg/dL 2.3-4.7 604) Seasoning Sprayer ID - HEIDY [id number] 05:51:00 Test Item Value Reference Range Interpretation Comments TRIGLYCERIDES (BEAKER) (test code = 167 mg/dL 540) TRIGLYCERIDE REFERENCE RANGELow Risk <150Borderline Risk 150-199High Risk 200-499Very High Risk >=500Operator ID - HEIDY MCBC with platelet count + automated [id number] 05:22:00 Test Item Value Reference Range Interpretation Comments WBC (test code = 6690-2) 4.3 See_Comment [A utomated message] The system [employer] generated this result transmitted ref erence range: 3.5 - 10 .5 K/L. The refe rence range was not u sed to interpret this result as normal/abnor mal. RBC (test code = 789-8) 3.21 See_Comment L [Au tomated message] The system [employer] generated this result transmitted ref erence range: 3.93 - 5 .22 M/L. The refe rence range was not u sed to interpret this result as normal/abnor mal. MCHC (test code = 786-4) 33.7 See_Comment L [A utomated message] The system [employer] generated this result transmitted ref erence range: [...] See_Comment [Aut omated message] 777-3) The system [employer] generated this result transmitted ref erence range: 150 - 45 0 K/CU MM. The referen ce range was not u sed to interpret this result as normal/abnor mal. MPV (test code = 10.2 fL 9.4-12.3 83547-8) nRBC (test code = 413) 0 See_Comment [Aut omated message] The system [employer] generated this result transmitted ref erence range: [...] See_Comment [Aut omated message] 670) The system [employer] generated this result transmitted ref erence range: 1.56 - 6 .13 K/L. The refe rence range was not u sed to interpret this result as normal/abnor mal. # Lymphs (test code = 1.47 See_Comment [Auto mated message] 414) The system [employer] generated this result transmitted ref erence range: 1.18 - 3 .74 K/L. The refe rence range was not u sed to interpret this result as normal/abnor mal. # Monos (test code = 0.63 See_Comment H [Autom ated message] 415) The system [employer] generated this result transmitted ref erence range: 0.24 - 0 .36 K/L. The refe rence range was not u sed to interpret this result as normal/abnor mal. # Eos (test code = 416) 0.03 See_Comment L [Au tomated message] The system [employer] generated this result transmitted ref erence range: 0.04 - 0 .36 K/L. The refe rence range was not u sed to interpret this result as normal/abnor mal. # Baso (test code = 417) 0.03 See_Comment [A utomated message] The system [employer] generated this result transmitted ref erence range: 0.01 - 0 .08 K/L. The refe rence range was not u sed to interpret this result as normal/abnor mal. Immature 1 % 0-1 Granulocytes-Relative (test code = 2801) Lab Interpretation (test Abnormal code = 76313-0) [facility] W/PLT COUNT & AUTO [id number] 05:22:00 Test Item Value Reference Range Interpretation [...] PERCENT (BEAKER) (test code = 2801) POCT-GLUCOSE [id number] 23:56:00 Test Item Value Reference Range Interpretation Comments POC-GLUCOSE METER 114 mg/dL 70-110 H : TESTED A T [facility] 6720 (BEAKER) (test code = [facility], 1538) [address]: Seasoning Sprayer/Techni fan ID = [id number] for ISRRAEL RUSSELL Clostridium difficile GDH [id number] 21:39:00 Test Item Value Reference Range Interpretation Comments C. Difficle Toxin Negative Negative (test code = 2037072901) C. Difficile GDH Negative Negative No indicati on of Antigen (test code = Clostri dium 3305257946) difficile infection and n o colonization. Discontinue enteric isolati on and therapy. MARCELA (test code = Testing performed MARCELA) by [employer] Rapid Cassette Assay. For GDH, published sensitivity of the assay is 98.7% compared to cytotoxicity testing. For Toxin AB, published sensitivity is 87.8% and specificity 99.4% compared to cytotoxicity testing.Verificati on of kit performance was done by the [facility] prior to clinical use. Lab Interpretation Normal (test code = 25338-2) [facility] Hospital[facility]. DIFFICILE GDH [id number] 21:39:00 Test Item Value Reference Range Interpretation Comments CDT TOXIN (test code Negative Negative = 9404585953) CDT GDH ANTIGEN (test Negative Negative No ind ication of code = 0873501121) Clostridi um difficile infection and n o colonization. Discontinue ent thee isolation and t herapy. Testing performed by [employer] Rapid Cassette Assay. For GDH, published sensitivity of the assay is 98.7% compared to cytotoxicity testing. For Toxin AB, published sensitivity is 87.8% and specificity 99.4% compared to cytotoxicity testing.Verification of kit performance was done by the [facility] prior to clinical use.POCT-GLUCOSE [id number] 16:00:00 Test Item Value Reference Range Interpretation Comments POC-GLUCOSE METER 114 mg/dL 70-110 H : TESTED A T [facility]20 (BEAKER) (test code = [facility] [place] [facility], 1538) 62449: Seasoning Sprayer/Techni fan ID = [id number] for DA VIS, KEYAIRA POCT-GLUCOSE [id number] 11:35:00 Test Item Value Reference Range Interpretation Comments POC-GLUCOSE METER 107 mg/dL 70-110 : TESTED A T [facility] (BEAKER) (test code = [employer] [facility], 1538) 25624: Seasoning Sprayer/Techni fan ID = [id number] for DA VIS, KEYAIRA Blood Culture # 10:58:00 Test Item Value [...] rods Lab Interpretation Abnormal (test code = 71767-8) [facility] HospitalBLO[facility] [id number] 10:58:00 Test Item Value Reference Range Interpretation Comments CULTURE A From Aerobic An d (BEAKER) (test Anaerobic Bot tles Same code = 1095) organism has be en isolated from cultures(s) of the same body site and collection date . Repeat identifi cation and susceptibil ity testing perform ed only after consultat ion with the [facility] microbiology laboratory.Refe r to previous cultur e ofEscherichia c roldan GRAM STAIN From aerobic and RESULT (BEAKER) anaerobic (test code = bottles: gram 1123) negative rods BLOOD [id number] 10:57:00 Test Item Value Reference Range Interpretation [...] 1123) bottles: gram negative rods Blood Culture Panel([employer])2020-11-02 10:53:00 Test Item Value Reference Interpretation Comments Range LISTERIA MONOCYTOGENES Not detected Not detected (test code = 28081-0) STAPHYLOCOCCUS (test Not detected Not detected code = 82124-9) STAPHYLOCOCCUS AUREUS Not detected Not detected (test code = 36697-5) Streptococcus (test Not detected Not detected code = 35274-6) STREPTOCOCCUS Not detected Not detected AGALACTIAE (GROUP B) (test code = 89968-5) STREPTOCOCCUS Not detected Not detected PNEUMONIAE (test code = 21892-7) Streptococcus pyogenes Not detected Not detected (Group A) (test code = 10637-9) ACINETOBACTER BAUMANNII Not detected Not detected (test code = 21291-9) HAEMOPHILUS INFLUENZAE Not detected Not detected (test code = 18359-7) NEISSERIA MENINGITIDIS Not detected Not detected (test code = 20588-4) ENTEROBACTERIACEAE Detected Not detected A (test code = 99128-1) ENTEROBACTER CLOACOE Not detected Not detected COMPLEX (test code = 92991-6) KLEBSIELLA OXYTOCA Not detected Not detected (test code = 99436-3) KLEBSIELLA PNEUMONIAE Not detected Not detected (test code = 60258-1) PROTEUS (test code = Not detected Not detected 24501-2) SERRATIA MARCESCENS Not detected Not detected (test code = 15555-5) DANIEL ALBICANS (test Not detected Not detected code = 59274-4) DANIEL GLABRATA (test Not detected Not detected code = 27403-5) DANIEL KRUSEI (test Not detected Not detected code = 98946-7) DANIEL PARAPSILOSIS Not detected Not detected (test code = 41786-7) DANIEL TROPICALIS Not detected Not detected (test code = 53473-3) ESCHERICHIA COLI (test Detected Not detected A Esche richia code = 91381-8) coliKPC not detected (a carbapenamase gene)First-line therapy: MeropenemDe-esc ala te based on susceptibilitie s.T his test does n ot evaluate for ESBLReference Range: Not Detected METHICILLIN-RESISTANCE GENE (test code = 86700-9) VANCOMYCIN-RESISTANCE GENE (test code = 91442-1) CARBAPENEM-RESISTANCE Not detected Not detected Note: GENE (test code = Antimicrob ial 62969-9) resistance can occur via multi ple mechanisms. A N ot Detected result for the [employer] antimicrobial resistance gene assays does not [...] (test code Not detected Not detected = 62830-9) PSEUDOMONAS AERUGINOSA Not detected Not detected (test code = 46710-2) MARCELA (test code = MARCELA) Other bacteria and resistance markers not targeted by this PCR panel cannot be excluded; therefore clinical correlation and follow up of serology, culture results, and other molecular studies is required. The results are not intended to be used as the sole means for clinical diagnosis or patient management decisions. This sample was tested at the [facility] using the [email or web address] Blood Culture ID Panel. It is FDA cleared and has been verified and approved by the [facility] for clinical use. This laboratory is CLIA-certified and [employer] (CAP)-accredited to perform high complexity testing. Lab Interpretation Abnormal (test code = 74627-1) [facility] IDENT[facility] [id number] 10:53:00 Test Item Value Reference Interpretation Comments Range LISTERIA MONOCYTOGENES Not detected Not detected (test code = 1358261) STAPHYLOCOCCUS (test Not detected Not detected code = 8336146) STAPHYLOCOCCUS AUREUS Not detected Not detected (test code = 2455542) STREPTOCOCCUS (test code Not detected Not detected = 0808986) STREPTOCOCCUS AGALACTIAE Not detected Not detected (GROUP B) (test code = 5779549) STREPTOCOCCUS PNEUMONIAE Not detected Not detected (test code = 7426139) STREPTOCOCCUS PYOGENES Not detected Not detected (GROUP A) (test code = 8010176) ACINETOBACTER BAUMANNII Not detected Not detected (test code = 4272141) HAEMOPHILUS INFLUENZAE Not detected Not detected (test code = 1210228) NEISSERIA MENINGITIDIS Not detected Not detected (test code = 0305249) ENTEROBACTERIACEAE (test Detected Not detected A code = 6676109) ENTEROBACTER CLOACOE Not detected Not detected COMPLEX (test code = 4630193) KLEBSIELLA OXYTOCA (test Not detected Not detected code = 9406620) KLEBSIELLA PNEUMONIAE Not detected Not detected (test code = 1650) PROTEUS (test code = Not detected Not detected 9772806) SERRATIA MARCESCENS Not detected Not detected (test code = 3443851) DANIEL ALBICANS (test Not detected Not detected code = 6677207) DANIEL GLABRATA (test Not detected Not detected code = 1050460) DANIEL KRUSEI (test Not detected Not detected code = 8367558) DANIEL PARAPSILOSIS Not detected Not detected (test code = 2099744) DANIEL TROPICALIS (test Not detected Not detected code = 0570294) ESCHERICHIA COLI (test Detected Not detected A Esche richia coliKPC code = 0273940) not detected (a carbapenamase gene)First-line therapy: MeropenemDe-esc alat e based on susceptibilitie s.Th is test does no t evaluate for ESBLReference Range: Not Dete cted METHICILLIN-RESISTANCE GENE (test code = 4709756) VANCOMYCIN-RESISTANCE GENE (test code = 9591626) CARBAPENEM-RESISTANCE Not detected Not detected Note: Antimicrobial GENE (test code = resistance can ) occur via multi ple mechanisms. A N ot Detected result for the [employer] antimicrobial resistance gene assays does not indicate antimicrobial susceptibility. Subculturing is required for species identification and susceptibility testing of isolates.WARMASONN G: A Not Detected re sult for the KPC gen e does not indica te susceptibility to carbapenems. Gr am negative bacter ia can be resistan t to carbapenems by mechanisms othe r than carrying t he KPC gene. ENTEROCOCCUS-BEAKER Not detected Not detected (test code = ) PSEUDOMONAS Not detected Not detected AERUGINOSA-BEAKER (test code = ) Other bacteria and resistance markers not targeted by this PCR panel cannot be excluded; therefore clinical correlation and follow up of serology, culture results, and other molecular studies is required. The results are not intended to be used as the sole means for clinical diagnosis or patient management decisions. This sample was tested at the [facility] using the [email or web address] Blood Culture ID Panel. It is FDA cleared and has been verified and approved by the [facility] for clinical use. This laboratory is CLIA-certified and College ofAmerican Pathologists (CAP)-accredited to perform high complexity testing.Manual [id number] 07:58:00 Test Item Value Reference Range Interpretation [...] = 3438) MARCELA (test code = MARCELA) Seasoning Sprayer ID - Kayce Luu comments: Slide comments: Lab Interpretation Abnormal (test code = 42925-6) [facility]PLT [facility] & AUTO [id number] 07:58:00 Test Item Value Reference Range Interpretation [...] CONCENTRATION Decreased (CELLAVISION)(BEAKER) (test code = 3438) Seasoning Sprayer ID - Kayce Luu comments: Slide comments:POCT-GLUCOSE METER 2020-11-02 06:13:00 Test Item Value Reference Range Interpretation Comments POC-GLUCOSE METER 109 mg/dL 70-110 : TESTED A T [facility] 6720 (BEAKER) (test code = WEND[facility] Howe [facility], 1538) [address]: Seasoning Sprayer/Techni fan ID = [id number] for ALEX VILA JANAY BASIC METABOLIC [id number] 06:01:00 Test Item Value Reference Range Interpretation [...] S NOT APPLICABLE FOR DIALYSIS PATIEN TS. Seasoning Sprayer ID - HEIDY MPOCT-GLUCOSE [id number] 20:25:00 Test Item Value Reference Range Interpretation Comments POC-GLUCOSE METER 108 mg/dL 70-110 : TESTED A T [facility] 6720 (DINESH) (test code = [place], 1538) [address]: Seasoning Sprayer/Techni fan ID = [id number] for GOLDEN BENITES RAD, CHEST, 1 VIEW, NON [id number] 12:43:00Reason for exam:->PICC placementShould this be performed at the bedside?->Yes [facility] : 1955 Sex: FFINAL REPORT AP view of the chest dated 11/01/2020 COMPARISON: July 25, 2018 CLINICAL INFORMATION: PICC placement Comment: Since prior examination, there is interval placement of a right PICC line with the tip seen in the superior vena cava. No other changes are seen in the chest. Signed: Vishnu Lu Verified Date/Time: 11/01/2020 12:43:02 Reading Location: [address] Consult Reading Room Hepatic function [id number] 07:06:00 Test Item Value Reference Range Interpretation [...] 2.8 g/dL 3.5-5.0 L Specime n slightly 84047-7) hemolyzed Total Bilirubin (test 0.4 mg/dL 0.2-1.2 Specim en slightly code = 1975-2) hemolyzed Bilirubin, Direct 0.1 mg/dL 0.1-0.5 Specimen s lightly (test code = 1967-7) hemolyz ed Alkaline Phosphatase 106 U/L 40-150 (test code = 6768-6) AST (test code = 21 U/L 5-34 Specimen sl ightly 1920-8) hemolyzed ALT (test code = 11 U/L 6-55 Specimen sl ightly 1742-6) hemolyzed MARCELA (test code = MARCELA) Seasoning Sprayer ID - HEIDY Toth Lab Interpretation Abnormal (test code = 29658-1) [facility] METABOLIC [id number] 07:06:00 Test Item Value Reference Range Interpretation [...] S NOT APPLICABLE FOR DIALYSIS PATIEN TS. Seasoning Sprayer ID - HEIDY MALCOLMEPATIC FUNCTION [id number] 07:06:00 Test Item Value Reference Range Interpretation [...] Specimen slightly (test code = 347) hemolyzed Seasoning Sprayer ID - HEIDY MCBC W/PLT COUNT & AUTO [id number] 06:30:00 Test Item Value Reference Range Interpretation [...] PERCENT (BEAKER) (test code = 2801) SARS-COV2/RT-PCR ([facility])2020-10-30 23:48:00 Test Item Value Reference Range Interpretation Comments SARS-COV2/RT-PCR Negative Not Detected, Performanc e of the Xpert (test code = Negative, See Xpress [id number]) external report SARS-CoV-2/F frank/RSV test for linked [...] sooner.Fact She et for Healthcare Prov iders: https://www.saperatec.com/ Documents/Xpert %20Xpress %79SIDD-YeI-3-F frank-RSV/30 2-4508%20Rev.%2 0B%20HCP% 20Fact%20Sheet. pdfFact Sheet for Healt hcare Patients: https://www.saperatec.[employer]/ Documents/Xpert %20Xpress %63RNQW-EpU-3-F frank-RSV/30 2-4507%20Rev.%2 0B%20Pati ent%20Fact%20Sh eet.pdf SARS-COV-2 Favian Performed at: I [facility] PERFORMING LAB [facility] dical (test code = [id number] [facility] [id number]) [place], [place] [address]oh: [phone] CT, [id number] 23:32:00Unlisted Reason for Exam - Click Yes and Enter Reason Below->YesUnlisted Reason for Exam->RUQ abdominal abscessWill this procedure require oral contrast?->No [facility] CENTERName: YULISSA IRWIN : 1955 Sex: FFINAL [...] Venous (test code = 1.30 mmol/L 0.50-2.20 2) Lab Interpretation (test code = Normal 92906-5) [facility] [id number] 22:32:00 Test Item Value Reference Range Interpretation Comments LACTATE BLOOD VENOUS (2) (BEAKER) 1.30 mmol/L 0.50-2.20 (test code = 2872) Prothrombin time/[id number] 22:31:00 Test Item Value Reference Interpretation Comments Range Protime (test code = 11.7 See_Comment [Autom ated 5992-2) message] The system which generated this result transmitted reference range : 9.8 - 12.0 seconds. The reference range was not used to interpret this result as normal/abnormal . INR (test code = 1.04 See_Comment [Automated 5961-6) message] The system which generated this result [...] valves. Lab Interpretation Normal (test code = 95074-9) [id number] 22:31:00 Test Item Value Reference Range Interpretation Comments PTT (test code = 71768-5) 32.2 See_Comment [ Automated message] The system [employer] generated this result transmitted ref erence range: 25.8 - 3 4.5 seconds. The re ference range was not u sed to interpret this result as normal/abnor mal. Lab Interpretation (test Normal code = 85327-2) [id number] 22:31:00 Test Item Value Reference Range Interpretation Comments PARTIAL THROMBOPLASTIN TIME 32.2 seconds 25.8-34.5 (BEAKER) (test code = 760) PROTHROMBIN TIME/[id number] 22:31:00 Test Item Value Reference Range Interpretation Comments PROTIME (BEAKER) 11.7 seconds 9.8-12.0 (test code = 759) INR (BEAKER) (test 1.04 See_Comment [Automat ed message] code = 370) The system [employer] generated this result transmitted ref erence range: [...] Albumin (test code = 3.7 g/dL 3.5-5.0 56955-4) Alkaline Phosphatase 111 U/L 30-115 (test code = 6768-6) Total Bilirubin (test 0.7 mg/dL 0.1-1.2 code = 1974-2) Sodium (test code = 134 meq/L 135-148 [...] Calcium (test code = 9.7 mg/dL 8.5-10.5 26404-9) AST (test code = 23 U/L 5-40 1920-8) ALT (test code = 24 U/L 5-50 1742-6) EGFR (test code = 107 mL/min/1.73 [place] [address]-6) NOT ACCURATE CREATININE CLEARANCE IN PREDICTING GLOMERULAR FILTRATION RATE . ESTIMATED GFR I S NOT APPLICABLE FOR DIALYSIS PATIEN TS. Lab Interpretation Abnormal (test code = 55908-8) [facility] Hospital[facility]PRE[facility] METABOLIC [id number] 22:28:00 Test Item Value Reference Range Interpretation [...] PATIEN TS. CBC W/PLT COUNT & AUTO [id number] 22:22:00 Test Item Value Reference Range Interpretation [...] L 0.00-0.20 (test code = 417) VITAMIN [id number] 11:15:00 Test Item Value Reference Range Interpretation Comments VITAMIN A (test 10.7 Vitamin A, S erumVitamin A 10.7 code = SARAH) Low ug/dL 22.0- 69.5 01Reference intervals for v itamin A determined from LabCorpinternal studies. Individuals wit h vitamin A less than 20 ug/dL areconsideredvi tamin A deficient and those with serum concentrations ug/dL are considered severely deficient.This test was developed and its perform ance characteristics determined by [facility]. It has not been cleared or approvedby [facility] Food and Drug Administration [id number] 07:54:00 Test Item Value Reference Range Interpretation Comments ZINC (test Test not performed () TRACE MUSA MENT (EDTA) code = ZI) ug/dL TUBE WAS SENT; WHOLE BLOODWHOLE BLOO D ZINC (TC 733149) WAS DONE TO REPLACE WRON G TEST CODE WHICHIS FO R SERUM;ZINC,WHOL E BLOOD RESULT : 679 UG/DL REFERENCE RANGE 440-860 UG/DLSe rum specimen was re ceived improperly sepa rated. Serumshould be from cells within one hour ofcollection.No tified Ade Sacrament o at zwehdqj21/31/20 20 Detection Limit = 5 VITAMIN B1 (THIAMINE)2020-05-13 17:08:00 Test Item Value Reference Range Interpretation Comments VITAMIN B1 109.6 nmol/L 66.5-200.0 Performed At: B N (THIAMINE) (test [facility] code = VITB1) [address] [id number] ra Ricardo CROSS Ph:[phone] [id number] 05:52:00 Test Item Value Reference Range Interpretation Comments GLUBED (test code = GLUBED) 109 MG/DL 70-105 H [id number] 20:55:00 Test Item Value Reference Range Interpretation Comments GLUBED (test code = GLUBED) 113 MG/DL 70-105 H BASIC METABOLIC [id number] 18:15:00 Test Item Value Reference Range Interpretation [...] code 8.5 mg/dL 8.5-10.5 N = CA) [id number] 16:21:00 Test Item Value Reference Range Interpretation Comments GLUBED (test code = GLUBED) 101 MG/DL 70-105 N [id number] 11:30:00 Test Item Value Reference Range Interpretation Comments GLUBED (test code = GLUBED) 146 MG/DL 70-105 H CBC W/AUTO [id number] 08:33:00 Test Item Value Reference Range Interpretation [...] 9.9 fL 8.6-12.6 N = MPV) WBC [id number] 08:33:00 Test Item Value Reference Range Interpretation [...] MORPHOLOGY (test code = NORMAL NORMAL PLTMORPH) [id number] 08:10:00 Test Item Value Reference Range Interpretation Comments MAGNESIUM (test code = MAG) 1.9 mg/dl 1.8-2.5 N BASIC METABOLIC [id number] 08:09:00 Test Item Value Reference Range Interpretation Comments SODIUM (test code 138 mmol/L 135-145 N = NA) POTASSIUM (test 2.5 mmol/L 3.6-5.0 LL Critical Sindi ue code = K) reported toFirs t Name:EWA Lemus Name:[facility]MANA [facility] READ BACK AND VERIFIEDby N.LAB.NB1, on 05/08/20, [...] mg/dL 8.5-10.5 N = CA) CBC W/AUTO [id number] 07:55:00 Test Item Value Reference Range Interpretation [...] 9.9 fL 8.6-12.6 N = MPV) WBC [id number] 07:55:00 Test Item Value Reference Range Interpretation Comments TOTAL CELLS COUNTED (test code = TCC) #CELLS RBC MORPHOLOGY COMMENT (test code = NORMAL MOC) PLATELET MORPHOLOGY (test code = NORMAL PLTMORPH) CBC W/AUTO [id number] 07:55:00 Test Item Value Reference Range Interpretation [...] 9.9 fL 8.6-12.6 N = MPV) WBC [id number] 07:55:00 Test Item Value Reference Range Interpretation Comments TOTAL CELLS COUNTED (test code = TCC) #CELLS RBC MORPHOLOGY COMMENT (test code = NORMAL MOC) PLATELET MORPHOLOGY (test code = NORMAL PLTMORPH) CBC W/AUTO [id number] 07:52:00 Test Item Value Reference Range Interpretation [...] (test code = EO#) x10 3/uL 0.0-0.5 [id number] 05:44:00 Test Item Value Reference Range Interpretation Comments GLUBED (test code = GLUBED) 110 MG/DL 70-105 H VITAMIN D [id number] 22:25:00 Test Item Value Reference Range Interpretation Comments VITAMIN D 25-HYDROXY 41 ng/ml 30-100 N Interpr etive Data :Vit D (test code = VITD25) 25 Hydr oxy Vit D Status Vit OH Vit D Co nc Range(ng/mL) De ficient < 20 Insufficient 20 - < 30 Sufficient 30 - 100 Upper Safety Limit > 100 [id number] 20:49:00 Test Item Value Reference Range Interpretation Comments GLUBED (test code = GLUBED) 149 MG/DL 70-105 H [id number] 16:58:00 Test Item Value Reference Range Interpretation Comments GLUBED (test code = GLUBED) 118 MG/DL 70-105 H THYROID REFLEX TO [id number] 12:37:00 Test Item Value Reference Range Interpretation Comments THYROID REFLEX TO FT4 (test code 1.180 uIU/ml 0.450-5.330 N = TSHREFLEX) [id number] 11:24:00 Test Item Value Reference Range Interpretation Comments GLUBED (test code = GLUBED) 120 MG/DL 70-105 H FOLIC [id number] 11:12:00 Test Item Value Reference Range Interpretation Comments FOLIC ACID (test code = FOL) 14.29 ng/ml 6.59-20.0 N [id number] 11:06:00 Test Item Value Reference Range Interpretation Comments FERRITIN (test code = SHANTELLE) 247 ng/mL 11-307 N - XR SMALL [id number] 10:49:00 [facility] : 1955 Sex: FPatient Name: YULISSA IRWIN Unit No: [id number] EXAMS: CPT: [id number] XR SMALL BOWEL 09849 SMALL BOWEL SERIES: Comparison: CT abdomen and pelvis of 05/02/2020 TECHNIQUE:The patient was given water-soluble Gastrografin contrast. A total of 10 images were exposed with 0.6 minutes of fluoroscopy time and total radiation dose of 10.973 mGy. FINDINGS: The preliminary [...] Rhett Fry MD; Undefined Provider Technologist: Malou mccoy Time: DAP (Gy m2): Air Kerma (mGy): Trscr Dt/Tm: 05/07/2020 (1049) by:[email or web address] Orig Print D/T: S: 05/07/2020 (1052) BATCH NO: N/A Name: ALIDAYULISSA [facility] Phys: LEESE. - Desmond Vazquez MD [address] : 1955 Age: 64 Sex: F [place] [id number] Loc: N.6032 1 Exam Date: 05/07/2020 Status: ADM IN PH: FAX: PAGE 1 Signed Report [id number] 07:47:00 Test Item Value Reference Range Interpretation Comments PREALBUMIN (test code = PREALB) 6.4 mg/dl 18-38 L [id number] 05:17:00 Test Item Value Reference Range Interpretation Comments GLUBED (test code = GLUBED) 136 MG/DL 70-105 H [id number] 20:01:00 Test Item Value Reference Range Interpretation Comments GLUBED (test code = GLUBED) 121 MG/DL 70-105 H - MRI BRAIN W/O [id number] 10:34:00 [facility] 1955 Sex: FPatient Name: YULISSA IRWIN Unit No: [id number] EXAMS: CPT: [id number] MRI BRAIN W/O CONTRAST 84055 PROCEDURE: MRI BRAIN WITHOUT INTRAVENOUS GADOLINIUM COMPARISON: None. INDICATIONS: head trauma TECHNIQUE: A variety of imaging planes and parameters were utilized for visualization of suspected pathology. Images were performed without contrast. FINDINGS: CEREBRUM: There is a normal gyral pattern of the brain.There is mild age-appropriate cerebral volume loss. There is mild patchy periventricular white matter T2 hyperintensity. No areas of diffusion restriction are seen to indicate acute stroke. CEREBELLUM:No edema, hemorrhage, mass, acute infarction, or inappropriate atrophy. BRAINSTEM: No edema, hemorrha ge, mass, acute infarction, or inappropriate atrophy. CSF [...] Lawson MD; Undefined Provider Technologist: Partha Foster [facility] Dt/Tm: 05/06/2020 (1034) by:ElvinAJM BATCH NO: N/A Name: YULISSA IRWIN [facility] Phys: Jay Galindo MD [address] : 1955 Age: 64 Sex: F [place], [place] [address] Loc: N.6032 1 Exam Date: 05/06/2020 Status: ADM IN PH: FAX: PAGE 1 Signed ReportBASIC METABOLIC [id number] 05:04:00 Test Item Value Reference Range Interpretation [...] code 8.4 mg/dL 8.5-10.5 L = CA) [id number] 05:04:00 Test Item Value Reference Range Interpretation Comments MAGNESIUM (test code = MAG) 2.0 mg/dl 1.8-2.5 N VITAMIN [id number] 05:04:00 Test Item Value Reference Range Interpretation Comments VITAMIN B12 (test code = VITB12) 1231 pg/ml 180-914 H BASIC METABOLIC [id number] 04:44:00 Test Item Value Reference Range Interpretation [...] code 8.4 mg/dL 8.5-10.5 L = CA) [id number] 04:44:00 Test Item Value Reference Range Interpretation Comments MAGNESIUM (test code = MAG) 2.0 mg/dl 1.8-2.5 N VITAMIN [id number] 04:44:00 Test Item Value Reference Range Interpretation Comments VITAMIN B12 (test code = VITB12) pg/ml 180-914 CBC W/AUTO [id number] 04:19:00 Test Item Value Reference Range Interpretation [...] 0.0-0.1 N UA RFLX MICR CULT IF [id number] 18:27:00 Test Item Value Reference Range Interpretation [...] culture: Suprapubic PainSpecimen Description: CATHETERIZED (STRAIGHT)COMPREHENSIVE METABOLIC [id number] 15:53:00 Test Item Value Reference Range Interpretation [...] PHOSPHATASE (test code = ALKP) COMPREHENSIVE METABOLIC [id number] 15:53:00 Test Item Value Reference Range Interpretation [...] (test code = ALKP) - XR ABDOMEN [id number] 15:21:00 [facility] : 1955 Sex: FPatient Name: YULISSA IRWIN Unit No: [id number] EXAMS: CPT: [id number] XR ABDOMEN 1V 80222 History: constipation COMPARISON STUDY: 04/02/2020 Abdomen 1 [...] signed by: Anderson Silverio MD CC: Rhett packer MD; Undefined Provider Technologist: MAYRA Ochoa Time: DAP (Gy m2): Air Kerma (mGy): Trscr Dt/Tm: 05/05/2020 (1521) by:[email or web address] Orig Print D/T: S: 05/05/2020 (1524) BATCH NO: N/A Name: YULISSA IRWIN [facility] Phys: SERINA - Rhett Fry [address] : 1955 Age: 64Sex: F [place], [place] [address] Loc: N.6032 1 Exam Date: 05/05/2020 Status: ADM IN PH: FAX: PAGE 1 Signed Report- CT HEAD/BRAIN W/O [id number] 13:49:00 [facility] : 1955 Sex: FPatient Name: YULISSA IRWIN Unit No: [id number] EXAMS: CPT: [id number] CT HEAD/BRAIN W/O CONT [address]463 CT HEADWITHOUT CONTRAST TECHNIQUE: Contiguous noncontrast axial images acquired through the head from skullbase to vertex.All CT scans at this facility are performed using dose optimization techniques including the following: Automated exposure control HISTORY: SUDDEN NEURO CHANGES COMPARISON:None FINDINGS:No acute intracranial hemorrhage, mass effect, midline shift, [...] CTDI: 44.73 DLP: 717.91 Trscr Dt/Tm: 05/05/2020 (7326) by:[email or web address] Orig Print D/T: S: 05/05/2020 (6052) BATCH NO: N/A Name: YULISSA IRWIN [facility] Phys: Rhett Altamir[address] : 1955 Age: 64 Sex: F [place] [address] Loc: N.6032 1 Exam Date: 05/05/2020 Status: ADM IN PH: FAX: PAGE 1 Signed [id number] - GLYCOSYLATED [id number] 07:34:00 Test Item Value Reference Range Interpretation Comments GLYCOSYLATED HEMOGLOBIN 5.4 % 4.0-6.0 N Inte rpretive Data: (HA1C) (test code = Caution should be GLYHGB) exercised when interpreting th e HgbA1c in patients wit h hemolytic anemi a, iron deficiency and when the total hemoglobi n is < 9g/dL, due to a decrease in average age of red blood cells CBC W/AUTO [id number] 06:42:00 Test Item Value Reference Range Interpretation [...] 10.8 fL 8.6-12.6 N = MPV) WBC [id number] 06:42:00 Test Item Value Reference Range Interpretation [...] MORPHOLOGY (test code = NORMAL NORMAL PLTMORPH) [id number] 05:31:00 Test Item Value Reference Range Interpretation Comments GLUBED (test code = GLUBED) 114 MG/DL 70-105 H CBC W/AUTO [id number] 05:00:00 Test Item Value Reference Range Interpretation [...] 10.8 fL 8.6-12.6 N = MPV) WBC [id number] 05:00:00 Test Item Value Reference Range Interpretation Comments TOTAL CELLS COUNTED (test code = TCC) #CELLS RBC MORPHOLOGY COMMENT (test code = NORMAL MOC) PLATELET MORPHOLOGY (test code = NORMAL PLTMORPH) CBC W/AUTO [id number] 05:00:00 Test Item Value Reference Range Interpretation [...] 10.8 fL 8.6-12.6 N = MPV) WBC [id number] 05:00:00 Test Item Value Reference Range Interpretation Comments TOTAL CELLS COUNTED (test code = TCC) #CELLS RBC MORPHOLOGY COMMENT (test code = NORMAL MOC) PLATELET MORPHOLOGY (test code = NORMAL PLTMORPH) [id number] 23:32:00 Test Item Value Reference Range Interpretation Comments GLUBED (test code = GLUBED) 115 MG/DL 70-105 H - XR CHEST 2 [id number] 14:08:00 [facility] : 1955 Sex: FPatient Name: YULISSA IRWIN Unit No: [id number] EXAMS: CPT: [id number] XR CHEST 2 V 84334 COMPARISON: none HISTORY: Shortness of breath Capsule comparison: CT of 05/02/2020, MRCP of 05/04/2020 FINDINGS: Lungsare clear. Heart size normal, without vascular congestion. Bony thorax appears unremarkable. Minimalposterior costophrenic angle blunting. CONCLUSION: Trace bilateral pleural effusions. at 1408 Reported and signed by: Joe Guzman MD CC:Rhett Fry MD; Undefined Provider Technologist: Terrell Hanson Fluoro Time: DAP (Gy m2): Air Kerma (mGy): Trscr Dt/Tm: 05/04/2020 (1408) by:[email or web address] Orig Print D/T: S: 05/04/2020 (1411) BATCH NO: N/A Name: YULISSA IRWIN [facility] Phys: Rhett Altamirano : 1955 Age: 64 Sex: F [place] [address] Loc: N.6032 1 Exam Date: 05/04/2020 Status: ADM IN PH: FAX: PAGE 1 Signed Report- MRI [id number] 12:39:00 [facility] : 1955 Sex: FPatient Name: YULISSA IRWIN Unit No: [id number] EXAMS: CPT: [id number] MRI MRCP 30719 MRCP/MRI ABDOMEN Clinical history:pancreatits sp aspen Technique: [...] Fry MD; Undefined Provider Technologist: Bela Miranda Trscr Dt/Tm: 05/04/2020 (4440) by: [email or web address] Orig Print D/T: S: 05/04/2020 (1242) BATCH NO: N/A Name: SHARYNBaljinderYULISSA [facility] Phys: LEESE. - Desmond Vazquez MD [address] : 1955 Age: 64 Sex: F [place] [address] Loc: N.6032 1 Exam Date: 05/04/2020 Status: ADM IN PH: FAX: PAGE 1 Signed ReportCBC W/AUTO [id number] 09:51:00 Test Item Value Reference Range Interpretation [...] 10.6 fL 8.6-12.6 N = MPV) WBC [id number] 09:51:00 Test Item Value Reference Range Interpretation [...] SEEN NORMAL code = PLTMORPH) BASIC METABOLIC [id number] 08:08:00 Test Item Value Reference Range Interpretation [...] mg/dL 8.5-10.5 L = CA) LIVER FUNCTION [id number] 08:08:00 Test Item Value Reference Range Interpretation [...] code = 87 U/L 42-121 N ALKP) [id number] 08:08:00 Test Item Value Reference Range Interpretation Comments LIPASE (test code = LIP) 28 IU/L 22-51 N [id number] 08:08:00 Test Item Value Reference Range Interpretation Comments MAGNESIUM (test code = MAG) 2.1 mg/dl 1.8-2.5 N CBC W/AUTO [id number] 07:42:00 Test Item Value Reference Range Interpretation [...] 10.6 fL 8.6-12.6 N = MPV) WBC [id number] 07:42:00 Test Item Value Reference Range Interpretation Comments TOTAL CELLS COUNTED (test code = TCC) #CELLS RBC MORPHOLOGY COMMENT (test code = NORMAL MOC) PLATELET MORPHOLOGY (test code = NORMAL PLTMORPH) CBC W/AUTO [id number] 07:42:00 Test Item Value Reference Range Interpretation [...] 10.6 fL 8.6-12.6 N = MPV) WBC [id number] 07:42:00 Test Item Value Reference Range Interpretation Comments TOTAL CELLS COUNTED (test code = TCC) #CELLS RBC MORPHOLOGY COMMENT (test code = NORMAL MOC) PLATELET MORPHOLOGY (test code = NORMAL PLTMORPH) CBC W/AUTO [id number] 07:39:00 Test Item Value Reference Range Interpretation [...] = EO#) x10 3/uL 0.0-0.5 HIGH SENSITIVITY [id number] 16:25:00 Test Item Value Reference Range Interpretation Comments HIGH SENSITIVITY CRP (test code 30.530 mg/dl 0.000-0.747 H = CRPHS) BASIC METABOLIC [id number] 05:58:00 Test Item Value Reference Range Interpretation [...] code 9.0 mg/dL 8.5-10.5 N = CA) [id number] 05:58:00 Test Item Value Reference Range Interpretation Comments LIPASE (test code = LIP) 137 IU/L 22-51 H [id number] 05:58:00 Test Item Value Reference Range Interpretation Comments PHOSPHOROUS (test code = PHOS) 2.1 mg/dl 2.5-4.6 L [id number] 05:58:00 Test Item Value Reference Range Interpretation Comments MAGNESIUM (test code = MAG) 1.7 mg/dl 1.8-2.5 L CBC W/AUTO [id number] 05:40:00 Test Item Value Reference Range Interpretation [...] BA#) 0.0 x10 3/uL 0.0-0.1 N Coronavirus 2018 nCoV [id number] 17:34:00 Test Item Value Reference Range Interpretation Comments Coronavirus 2019 Negative Negative This test h as been nCoV Bedside (test authorize d by FDA under code = [id number]) an EUA for use byauthorized laboratories. T [...] and/o r diagnosis of CO VID-19 under Ldpidbm06 4(b)(1) of the Act, 21 U.S .C [...] and/o r diagnosis of CO VID-19 under Kbhxoyk04 4(b)(1) of the Act, 21 U.S .C 360bbb-3(b)(1), unless theauthorizatio n is terminated or r evoked sooner. - CT ABD PELVIS [id number] 16:09:00 [facility] : 1955 Sex: FPatient Name: YULISSA IRWIN Unit No: [id number] EXAMS: CPT: [id number] CT ABD PELVIS W/CONT 60801 EXAM: CT ABDOMEN AND PELVIS WITH CONTRAST [...] with ACR practice guidelines and adherence to confectionery laboratory manager recommendations. FINDINGS: Lower thorax: Subsegmental atelectasis in [...] in diameter at the posterior interpolar region ofthe right kidney. No obstructing calculus, hydronephrosis, or hydroureter. Vasculature: Few scattered atherosclerotic calcifications of the abdominal aorta, which is normal in course and caliber without significant stenosis or dilation. Lymph nodes: No pathologic adenopathy within the abdomen and pelvis based on size. Gastrointestinal tract: Colonic diverticulosis without evidence of Name: YULISSA IRWIN [facility] ED Phys: TRANH.[address] - [address],[facility] [address] : 1955 Age: 64 Sex: [place] [address] Loc: N.ERS Exam Date: 05/02/2020 Status: PRE ER PH: FAX: PAGE 1 Signed Report (CONTINUED) Patient Name: YULISSA IRWIN Unit No: [id number] EXAMS: CPT: [id number] CT ABD PELVIS W/CONT 12726 (Continued) acute diverticulitis. No obstruction or pneumatosis. [...] peripancreatic edema and swelling about the pancreatic headand surrounding the 1st and 2nd portions of [...] and etiology of obstruction. Differential includes choledocholithiasis. E lectronically Signed by YUDELKA VALENTE MD on 05/02/2020 at 1609 Reported and signed by: YUDELKA VALENTE MD CC: Elissaandrew Street MD Technologist: Joselito Hanson CTDI: 18.7 DLP: 983.15 Trscr Dt/Tm: 05/02/2020 (1603) by:[email or web address] Orig Print D/T: S: 05/02/2020 (0273) BATCH NO: N/A Name: SHARYNBaljinderYULISSA A [facility] Phys: ELISHA. [address] : 1955 Age: 64 Sex: [place] [address] Loc: N.ERS Exam Date: 05/02/2020 Status: PRE ER PH: FAX: PAGE 2 Signed ReportBASIC METABOLIC [id number] 15:15:00 Test Item Value Reference Range Interpretation [...] mg/dL 8.5-10.5 N = CA) LIVER FUNCTION [id number] 15:15:00 Test Item Value Reference Range Interpretation [...] code = 100 U/L 42-121 N ALKP) [id number] 15:15:00 Test Item Value Reference Range Interpretation Comments LIPASE (test code = LIP) 381 IU/L 22-51 H BASIC METABOLIC [id number] 15:12:00 Test Item Value Reference Range Interpretation [...] mg/dL 8.5-10.5 N = CA) LIVER FUNCTION [id number] 15:12:00 Test Item Value Reference Range Interpretation [...] PHOSPHATASE (test code = U/L 42-121 ALKP) [id number] 15:12:00 Test Item Value Reference Range Interpretation Comments LIPASE (test code = LIP) IU/L 22-51 BASIC METABOLIC [id number] 15:09:00 Test Item Value Reference Range Interpretation [...] mg/dL 8.5-10.5 N = CA) LIVER FUNCTION [id number] 15:09:00 Test Item Value Reference Range Interpretation Comments TOTAL PROTEIN (test code = PROT) g/dL 6.7-8.2 ALBUMIN (test code = ALB) g/dL 3.2-5.5 BILIRUBIN TOTAL (test code = BILT) mg/dL 0.2-1.3 BILIRUBIN DIRECT (test code = BILD) mg/dL 0.00-0.20 SGOT/AST (test code = AST) U/L 10-42 SGPT/ALT (test code = ALT) U/L 10-60 ALKALINE PHOSPHATASE (test code = U/L 42-121 ALKP) [id number] 15:09:00 Test Item Value Reference Range Interpretation Comments LIPASE (test code = LIP) IU/L 22-51 LACTIC [id number] 15:04:00 Test Item Value Reference Range Interpretation Comments LACTIC ACID (test code = LACT) 1.5 mmol/L 0.5-2.0 N CBC W/AUTO [id number] 14:49:00 Test Item Value Reference Range Interpretation [...] 0.0-0.1 N UA RFLX MICR CULT IF [id number] 14:49:00 Test Item Value Reference Range Interpretation [...] culture: Suprapubic PainSpecimen Description: CLEAN CATCHCBC W/AUTO [id number] 14:42:00 Test Item Value Reference Range Interpretation [...] code = EO#) x10 3/uL 0.0-0.5 URINE [id number] 13:51:00 Test Item Value Reference Range Interpretation Comments CULTURE (BEAKER) (test A 30-39 ,000 col/mL Daniel code = 1095) albicans >100,000 col/mL skin floraURINALYSIS W/ [id number] 18:13:00 Test Item Value Reference Range Interpretation [...] 1663) SOURCE(BEAKER) (test code = 2795) RAPID [id number] 17:57:00 Test Item Value Reference Range Interpretation Comments RAPID MYOGLOBIN (BEAKER) (test code 34 ng/mL <107 = 2237) RAPID TROPONIN [id number] 17:57:00 Test Item Value Reference Range Interpretation Comments RAPID TROPONIN I (BEAKER) (test code < ng/mL <0.05 = 1483) B-TYPE NATRIURETIC FACTOR (BNP)2018-07-25 17:57:00 Test Item Value Reference Range Interpretation Comments B-TYPE NATRIURETIC PEPTIDE (BEAKER) 22 pg/mL 0-100 (test code = 700) RAPID [id number] 17:56:00 Test Item Value Reference Range Interpretation Comments RAPID CKMB (BEAKER) (test code = < ng/mL 0.0-4.3 1482) [id number] 17:54:00 Test Item Value Reference Range Interpretation [...] patients with mechanical heart valves.CT, BRAIN, WITHOUT [id number] 17:49:00Reason for exam:->DIZZINESSWhat is the patient's sedation [...] with MRI is recommended. Signed: Darci Blake Verified Date/Time: 07/25/2018 17:49:33 Reading Location: [facility] Radiology Reading Room BASI METABOLIC [id number] 17:42:00 Test Item Value Reference Range Interpretation [...] CALCU LATE m ESTIMATED GFR. HEPATIC FUNCTION [id number] 17:42:00 Test Item Value Reference Range Interpretation [...] (test code = 31 U/L 5-50 347) [id number] 17:42:00 Test Item Value Reference Range Interpretation Comments LIPASE (BEAKER) (test code = 749) 235 U/L 40-240 [id number] 17:42:00 Test Item Value Reference Range Interpretation Comments MAGNESIUM (BEAKER) (test code = 2.0 mg/dL 1.5-3.0 627) RAD, CHEST, 2 [id number] 17:42:00Reason for exam:->sobFINAL REPORT Chest, PA and lateral. History: Shortness of breath. Comparison: None available. Discussion: The cardiomediastinal silhouette and pulmonary vasculature are within normal limits. The lungs are clear without evidence of consolidation or effusion. There are no acute osseous abnormalities. The soft tissues are unremarkable. IMPRESSION: No acute cardiopulmonary abnormality. Signed: Long [place] Verified Date/Time: 07/25/2018 17:42:28 Reading Location: [address] Radiology Reading Room CBC W/PLT COUNT & AUTO [id number] 17:29:00 Test Item Value Reference Range Interpretation [...]
[2022-03-05] MEDS ORDERED: MORPHINE 4 MG/ML SYR ONE ×2 (14:29→18:17)
[2022-03-05] MEDS ORDERED: ONDANSETRON 4 MG/2 ML VIAL ONE (14:29)
[2022-03-05 14:39] LABS: Absolute Lymphocytes (CBC) 2.2 K/uL (0.7-4.9); Lymphocytes % 14.5 % (15.3-44.8); MPV 6.4 fL (7.6-11.3); RBC Red Blood Cell Count 3.14 M/uL (3.86-4.86)
[2022-03-05 14:45] LABS: ALT/SGPT < 10 U/L (12-78); AST/SGOT 10 U/L (15-37); Albumin 2.6 g/dL (3.4-5.0); Alkaline Phosphatase 98 U/L (45-117); BUN Blood Urea Nitrogen 9 mg/dL (7-18); Bicarbonate 20 mmol/L (21-32); Bilirubin Direct 0.1 mg/dL (0-0.2); Bilirubin Total 0.3 mg/dL (0.2-1.0); Glomerular Filtration Rate 76 ml/min (=/>90); Glucose Level 144 mg/dL (74-106); Lipase 127 U/L (73-393); Potassium 3.6 mmol/L (3.5-5.1); Protein, Total 7.1 g/dL (6.4-8.2); Sodium Level 132 mmol/L (136-145)
[2022-03-05 15:22] LABS: Protime INR 1.2
--- NOTE | 2022-03-05 17:44 | RAD REPORT ---
EXAM DESCRIPTION: CTChest Abdomen Pelvis W Cont - 03/05/2022 5:27 pm CLINICAL HISTORY: R sided chest and abd pain, recent sx with drains COMPARISON: Abdomen Pelvis W Contrast dated 02/01/2022; Abdomen Pelvis W Contrast dated 03/01/2022 ; Abdomen Wo Contrast dated 03/02/2022 TECHNIQUE: CT of the chest, abdomen, and pelvis was performed with contrast. All CT scans are performed using dose optimization technique as appropriate and may include automated exposure control or mA/KV adjustment according to patient size. FINDINGS: Thorax: Chest Wall: No abnormal mass Lungs: Dependent atelectasis. Pleura: Small bilateral effusions. Keily/Mediastinum: No lymphadenopathy. Aorta/Pulmonary Arteries: Unremarkable Heart: Normal size. Abdomen/Pelvis: Liver: Intrahepatic biliary ductal dilatation is similar to prior CTs. Biliary: Cholecystectomy. Similar extrahepatic biliary ductal dilatation . Stomach: Status post Samantha-en-Y gastric bypass. At the excluded stomach, there is still a thin tract o f tissue extending to the ventral abdominal wall. Some fluid along the peritoneal surface of is prese nt on the prior CT is no longer seen. The extraluminal gas in this tract is also resolved. Duodenum: No significant focal abnormality. Pancreas: No significant abnormality. Spleen: No significant abnormality. Adrenal: No suspicious lesions. Kidney/ureter: No hydronephrosis. Too small to characterize and/or benign appearing renal lesions are noted. Retroperitoneum: No retroperitoneal adenopathy. Vascular: No aneurysm. Bowel: No significant focal abnormality. Peritoneum: No ascites or free air. Bladder: Grossly unremarkable. Reproductive: No adnexal masses. Hysterectomy Bones: No acute fracture. Other: Fluid collection in the right abdominal wall measures similar in size. There is enhancing rim. IMPRESSION: 1. Re- demonstrated findings which could represent a gastrocutaneous fistula though it m ay have resolved. A thin tract of tissue extends from the gastric antrum to the peritoneum, however t he gas previously identified in the tract and the fluid along the peritoneal surface has essentially resolved. The abdominal wall fluid collection is unchanged. If the wound in the right upper quadrant is continuing to produce copious fluid then that would suggest that a fistula persists. 2. Small bilateral effusions with underlying atelectasis.
--- NOTE | 2022-03-05 18:15 | ER ---
Nurse's Notes [facility] Name: Minnie Flores Age: 66 yrs Sex: Female : 1955 Arrival Date: 03/05/2022 Time: 13:27 Bed 19 Private MD: Diagnosis: Gastrocutaneous fistula;Cutaneous abscess of abdominal wall;Pleural effusion, not elsewhere classified Presentation: 03/05 13:36 Chief complaint: Right sided torso pain, front and back, since 0400 today. Also c/o SOB hb related to the pain. reports pt was hospitalized last month for abdominal abscess + fistula repair. Coronavirus screen: At this time, the client does not indicate any symptoms associated with coronavirus-19. Ebola Screen: No symptoms or risks identified at this time. Risk Assessment: Do you want to hurt yourself or someone else? Patient reports no desire to harm self or others. Onset of symptoms was March 05, 2022. 13:36 Method Of Arrival: Ambulatory hb 13:36 Acuity: AMY 2 hb 13:40 Initial Sepsis Screen: Does the patient meet any 2 criteria? No. Patient's initial [facility] sepsis screen is negative. 19:44 Initial Sepsis Screen: Does the patient have a suspected source of infection? Yes: Skin lg3 breakdown/wound. Triage Assessment: 14:30 General: Appears in no apparent distress. Behavior is calm, cooperative. [facility] 14:30 Pain: Complains of pain in posterior aspect of left lateral abdomen, anterior aspect of jh6 left lateral abdomen, right upper quadrant and right lower quadrant Pain does not radiate. Pain currently is 6 out of 10 on a pain scale. Quality of pain is described as aching, sharp, Pain began suddenly, 4 hours ago. Is continuous, Aggravated by increased activity. Respiratory: Reports no resp issues Onset: The symptoms/episode began/occurred this morning, the patient has moderate shortness of breath. Historical: - Allergies: 13:39 Omeprazole; hb 13:39 aspartame; hb - PMHx: 13:39 Bipolar disorder; Degenerative disc disease; Depression; Fibromyalgia; hb - Immunization history:: Client reports receiving the 2nd dose of the Covid vaccine. - Social history:: Smoking status: Patient denies any tobacco usage or history of. - Family history:: not pertinent. - Hospitalizations: : No recent hospitalization is reported. Screenin:00 Abuse screen: Denies threats or abuse. Denies injuries from another. Nutritional jh6 screening: No deficits noted. Tuberculosis screening: No symptoms or risk factors identified. Fall Risk None identified. Assessment: 14:00 Cardiovascular: Capillary refill < 3 seconds Clubbing of nail beds is absent JVD is jh6 absent Patient's skin is warm and dry. Rhythm is regular. Respiratory: Airway is patent Respiratory effort is even, unlabored. 14:39 Respiratory: Breath sounds are clear bilaterally. jh6 16:00 Reassessment: Patient and/or family updated on plan of care and expected duration. Pain jh6 level reassessed. Patient is alert, oriented x 3, equal unlabored respirations, skin warm/dry/pink. Patient states symptoms have improved. 16:00 Pain: Complains of pain in right upper quadrant and right lower quadrant. GI: Bowel jh6 sounds present X 4 quads. Abdomen is tender to palpation in right upper quadrant and right lower quadrant. 19:40 General: Appears in no apparent distress. uncomfortable, Behavior is calm, cooperative. lg3 Pain: Complains of pain in abdomen and right lower quadrant and right upper quadrant Pain currently is 8 out of 10 on a pain scale. Quality of pain is described as crampy, heavy, pressure, sharp, Noted to be grimacing, guarding, resistant to movement. Neuro: No deficits noted. Level of Consciousness is awake, alert, obeys commands, Oriented to person, place, time, situation. Cardiovascular: No deficits noted. Denies chest pain, shortness of breath, Capillary refill < 3 seconds Clubbing of nail beds is absent JVD is absent Patient's skin is warm and dry. Respiratory: No deficits noted. Airway is patent Trachea midline Respiratory effort is even, unlabored, Respiratory pattern is regular, symmetrical. GI: Abdomen is round non-distended, Bowel sounds present X 4 quads. Abd is soft X 4 quads Abdomen is tender to palpation in right lower quadrant and right upper quadrant Reports lower abdominal pain, upper abdominal pain, cramping. : No deficits noted. No signs and/or symptoms were reported regarding the genitourinary system. EENT: No deficits noted. No signs and/or symptoms were reported regarding the EENT system. Derm: Skin is intact, is healthy with good turgor, Skin is dry, Skin temperature is warm Wound noted right lower quadrant. Musculoskeletal: No deficits noted. No signs and/or symptoms reported regarding the musculoskeletal system. Circulation, motion, and sensation intact. Range of motion: intact in all extremities. 21:12 Reassessment: Patient and/or family updated on plan of care and expected duration. Pain ha1 level reassessed. Patient is alert, oriented x 3, equal unlabored respirations, skin warm/dry/pink. reports pain 10/10. notified provider in shift. Vital Signs: 13:36 BP 138 / 70; Pulse 129; Resp 24; Temp 97.7; Pulse Ox 95% on R/A; Weight 83.91 kg; hb Height 5 ft. 6 in. (167.64 cm); Pain 10/10; 15:45 BP 123 / 59; Pulse 97; Resp 18; Pulse Ox 98% ; Pain 5/10; jh6 15:45 BP 129 / 62; Pulse 96; Resp 18; Pulse Ox 100% ; Pain 4/10; jh6 19:37 BP 134 / 65; Pulse 101; Resp 18; Pulse Ox 97% on R/A; Pain 8/10; lg3 21:12 BP 145 / 66; Pulse 110; Resp 22 S; Pulse Ox 95% on R/A; Pain 10/10; ha1 13:36 Body Mass Index 29.86 (83.91 kg, 167.64 cm) hb ED Course: 13:27 Patient arrived in ED. rg4 13:39 Triage completed. hb 13:39 Patient placed. hb 13:45 Jas Bradshaw MD is Attending Physician. rn 13:57 Socorro Santillan RN is Primary Nurse. jh6 14:00 Placed in gown. Bed in low position. Call light in reach. Side rails up X 1. jh6 14:36 Inserted saline lock: 22 gauge in left wrist, using aseptic technique. Blood collected. jh6 14:53 EKG done, by ED staff, reviewed by Jas Bradshaw MD. jw7 17:27 Chest Abdomen Pelvis W Cont In Process Unspecified. EDMS 18:12 Gabino Juarez MD is Hospitalizing Provider. rn 19:40 No provider procedures requiring assistance completed. Patient admitted, IV remains in lg3 place. intact, No redness/swelling at site. 19:44 Arm band placed on right wrist. lg3 21:15 SARS RAPID Sent. ha1 Administered Medications: 14:35 Drug: morphine 4 mg Route: IVP; Infused Over: 4 mins; Site: left wrist; 6 15:07 Follow up: Response: No adverse reaction 6 14:35 Drug: Zofran (Ondansetron) 4 mg Route: IVP; Site: left wrist; jh6 15:07 Follow up: Response: No adverse reaction 6 18:33 Drug: morphine 4 mg Route: IVP; Infused Over: 4 mins; Site: left wrist; jh6 19:44 Follow up: Response: No adverse reaction; No change in condition; Pain is unchanged, 3 physician notified 19:00 Drug: Zosyn (piperacillin-tazobactam) 3.375 grams Route: IVPB; Infused Over: 60 mins; 6 Site: left wrist; 19:45 Follow up: Response: No adverse reaction; IV Status: Completed infusion; IV Intake: lg3 100ml 19:37 Drug: Dilaudid (HYDROmorphone) 1 mg Route: IVP; Site: left wrist; 3 19:44 Follow up: Response: No adverse reaction; Marked relief of symptoms 3 21:15 Drug: Ativan (LORazepam) 1 mg {Note: pain 10/10 RR 22 HR 110.} Route: IVP; Site: left ha1 forearm; Medication: 19:40 VIS not applicable for this client. lg3 Intake: 19:45 IV: 100ml; Total: 100ml. lg3 Outcome: 18:14 Decision to Hospitalize by Provider. rn 19:40 Admitted to ER Hold. Please see [facility] for further documentation. lg3 19:40 Condition: stable 19:40 Instructed on the need for admit, Demonstrated understanding of instructions. 03/06 08:42 Patient left the ED. mb8 Signatures: Dispatcher [employer] EDMS Jas Bradshaw MD MD rn Baxter, Heather, RN RN hb Garcia, Rubi rg4 Saira Graf RN RN 3 Socorro Santillan RN RN 6 Raysa Parsons jw7 Quin Nielsen RN RN 1 Marshall Luther RN RN mb8 Corrections: (The following items were deleted from the chart) 03/05 13:39 13:36 Chief complaint: hb hb 14:02 13:36 Chief complaint: Right sided torso pain, front and back, since 0400 today. Also hb c/o SOB related to the pain. Hospitalized last month for abdominal abscess + fistula repair. hb 21:19 21:15 Reassessment: Patient and/or family updated on plan of care and expected ha1 duration. Pain level reassessed. Patient is alert, oriented x 3, equal unlabored respirations, skin warm/dry/pink. reports pain 04/18. notified provider in shift. ha1
--- NOTE | 2022-03-05 18:15 | EDPHYS ---
Physician Documentation [facility] Name: Minnie Flores Age: 66 yrs Sex: Female : 1955 Arrival Date: 03/05/2022 Time: 13:27 Bed 19 Private MD: ED Physician Jas Bradshaw HPI: 03/05 14:58 This 66 yrs old Female presents to ER via Ambulatory with complaints of abdominal pain. rn 15:34 The patient presents with abdominal pain in the upper abdomen, in the periumbilical rn area. in the right upper quadrant. Onset: The symptoms/episode began/occurred today. The symptoms radiate to right back. Associated signs and symptoms: Pertinent positives: chest pain, nausea, Pertinent negatives: blood in stools, shortness of breath, vomiting blood. The symptoms are described as sharp, stabbing. Modifying factors: The symptoms are alleviated by nothing, the symptoms are aggravated by pressure, touching the area. Severity of pain: At its worst the pain was moderate in the emergency department the pain is unchanged. The patient has experienced a previous episode. The patient has been recently been admitted at [facility]. Pt reports right sided upper abd pain, states recently admitted with abd surgery for perforated ulcer, then had complications with fistula and abscess formation, had drains, discharged 2 days ago and reports abd pain worsening. Radiates to chest and right back.. Historical: - Allergies: 13:39 Omeprazole; hb 13:39 aspartame; hb - PMHx: 13:39 Bipolar disorder; Degenerative disc disease; Depression; Fibromyalgia; hb - Immunization history:: Client reports receiving the 2nd dose of the Covid vaccine. - Social history:: Smoking status: Patient denies any tobacco usage or history of. - Family history:: not pertinent. - Hospitalizations: : No recent hospitalization is reported. ROS: 15:34 Constitutional: Negative for fever, chills, and weight loss, Eyes: Negative for injury, rn pain, redness, and discharge, Cardiovascular: Negative for palpitations, and edema Respiratory: Negative for wheezing, and pleuritic chest pain, Abdomen/GI: Negative for vomiting, diarrhea, and constipation, Back: Negative for injury and pain, MS/Extremity: Negative for injury and deformity, Skin: Negative for injury, rash, and discoloration, Neuro: Negative for headache, weakness, numbness, tingling, and seizure. Exam: 15:34 Constitutional: This is a well developed, well nourished patient who is awake, alert, rn appears uncomfortable Head/Face: Normocephalic, atraumatic. Eyes: Periorbital areas with no swelling, redness, or edema. Cardiovascular: Tachycardic, regular Respiratory: Mild tachypnea, no retractions Abdomen/GI: soft, + tender periumbilical and right side of abdomen, + small amount of drainage mid abdominal opening. Skin: Warm, dry MS/ Extremity: Pulses equal, no cyanosis. Neuro: Awake and alert, GCS 15 16:30 ECG was reviewed by the Attending Physician. rn Vital Signs: 13:36 BP 138 / 70; Pulse 129; Resp 24; Temp 97.7; Pulse Ox 95% on R/A; Weight 83.91 kg; hb Height 5 ft. 6 in. (167.64 cm); Pain 10/10; 15:45 BP 123 / 59; Pulse 97; Resp 18; Pulse Ox 98% ; Pain 5/10; jh6 15:45 BP 129 / 62; Pulse 96; Resp 18; Pulse Ox 100% ; Pain 4/10; jh6 19:37 BP 134 / 65; Pulse 101; Resp 18; Pulse Ox 97% on R/A; Pain 8/10; lg3 21:12 BP 145 / 66; Pulse 110; Resp 22 S; Pulse Ox 95% on R/A; Pain 10/10; ha1 13:36 Body Mass Index 29.86 (83.91 kg, 167.64 cm) hb MDM: 13:45 Patient medically screened. rn 18:10 Differential diagnosis: fistula, subcutaneous abscess, intraperitoneal fluid rn collection, empyema, PNA. Data reviewed: vital signs, nurses notes, lab test result(s), radiologic studies, CT scan, and as a result, I will admit patient. Counseling: I had a detailed discussion with the patient and/or guardian regarding: the historical points, exam findings, and any diagnostic results supporting the discharge/admit diagnosis, lab results, radiology results, the need for further work-up and treatment in the hospital. Response to treatment: the patient's symptoms have mildly improved after treatment, and as a result, I will admit patient. Admission orders: after a detailed discussion of the patient's condition and case, the admit orders are written by me. ED course: consulted with Dr. Morrow, will consult on patient, requests hospitalist admission, no acute surgical intervention at this time, recommends IV abx and pain control. . 03/05 13:56 Order name: CBC with Diff; Complete Time: 15:24 rn 03/05 13:56 Order name: Basic Metabolic Panel; Complete Time: 15:24 rn 03/05 13:56 Order name: Protime (+inr); Complete Time: 15:24 rn 03/05 13:56 Order name: Ptt, Activated; Complete Time: 15:24 rn 03/05 13:56 Order name: LFT's; Complete Time: 15:24 rn 03/05 13:56 Order name: Lipase; Complete Time: 15:24 rn 03/05 18:15 Order name: Wound Culture rn 03/05 19:54 Order name: SARS RAPID 03/05 21:35 Order name: SARS-COV-2 Antigen Rapid EDSD 03/06 03:58 Order name: CBC with Automated Diff EDSD 03/06 04:21 Order name: Basic Metabolic Panel EDSD 03/06 04:21 Order name: Phosphorus EDMS 03/06 04:21 Order name: Magnesium EDSD 03/06 07:54 Order name: Glucose, Ancillary Testing EDSD 03/05 13:56 Order name: IV Start; Complete Time: 14:36 rn 03/05 13:56 Order name: EKG - Nurse/Tech; Complete Time: 14:53 03/05 13:56 Order name: EKG; Complete Time: 13:57 03/05 17:12 Order name: Chest Abdomen Pelvis W Cont; Complete Time: 17:49 EDMS EC:30 Rate is 100 beats/min. Rhythm is regular. QRS Wallace is Normal. FL interval is normal. rn QRS interval is normal. QT interval is normal. No Q waves. T waves are Normal. No ST changes noted. Clinical impression: Normal ECG. Interpreted by me. Reviewed by me. Administered Medications: 14:35 Drug: morphine 4 mg Route: IVP; Infused Over: 4 mins; Site: left wrist; jh6 15:07 Follow up: Response: No adverse reaction [facility] 14:35 Drug: Zofran (Ondansetron) 4 mg Route: IVP; Site: left wrist; jh6 15:07 Follow up: Response: No adverse reaction [facility] 18:33 Drug: morphine 4 mg Route: IVP; Infused Over: 4 mins; Site: left wrist; [facility] 19:44 Follow up: Response: No adverse reaction; No change in condition; Pain is unchanged, 3 physician notified 19:00 Drug: Zosyn (piperacillin-tazobactam) 3.375 grams Route: IVPB; Infused Over: 60 mins; [facility] Site: left wrist; 19:45 Follow up: Response: No adverse reaction; IV Status: Completed infusion; IV Intake: lg3 100ml 19:37 Drug: Dilaudid (HYDROmorphone) 1 mg Route: IVP; Site: left wrist; [facility] 19:44 Follow up: Response: No adverse reaction; Marked relief of symptoms [facility] 21:15 Drug: Ativan (LORazepam) 1 mg {Note: pain 10/10 RR 22 HR 110.} Route: IVP; Site: left ha1 forearm; Disposition Summary: 03/05/22 18:14 Hospitalization Ordered Hospitalization Status: Inpatient Admission rn Provider: Gabino Juarez rn Condition: Stable rn Problem: an ongoing problem rn Symptoms: are unchanged rn Bed/Room Type: Standard rn Location: Telemetry/MedSurg (Inpatient)(03/06/22 08:15) Room Assignment: [facility](03/06/22 08:15) Diagnosis - Gastrocutaneous fistula rn - Cutaneous abscess of abdominal wall rn - Pleural effusion, not elsewhere classified rn Forms: - Medication Reconciliation Form rn - SBAR form rn Signatures: Dispatcher [employer] EDSD Florecita Nina RN Digna Rosenbaum RN Jas Marquez MD MD rn Baxter, Heather RN Maria E Umaña Lacie RN RN 3 Socorro Santillan RN RN jh6 Waleska Arizmendi PA PA sb3 Quin Nielsen RN RN [facility] Corrections: (The following items were deleted from the chart) 19:21 18:14 Telemetry/MedSurg (Inpatient) hannah spivey 19:21 18:14 hannah spivey 03/06 08:15 03/05 19:21 [facility] ER HOLD allyssa decker 03/06 0803/05 19:21 ERHOLD- mw 03/06 08:15 08:15 Telemetry/MedSurg (Inpatient) [facility] 08 08:15 [id number]
[2022-03-05] MEDS ORDERED: PIPERACIL/TAZO 3.375 GM VIAL IV ONE (18:57)
[2022-03-05] MEDS ORDERED: NA CHLORIDE 0.9% 100 ML ONE (18:57)
--- NOTE | 2022-03-05 19:35 | P.HP ---
Certification for Inpatient Patient admitted to: Inpatient With expected LOS: >2 Midnights Patient will require the following post-hospital care: None Practitioner: I am a practitioner with admitting privileges, knowledge of patient current condition, hospital course, and medical plan of care. Services: Services provided to patient in accordance with Admission requirements found in Title 42 Section 412.3 of the Code of Federal Regulations Patient History Date of Service: 03/05/22 Reason for admission: Abdominal Cutaneous Abscess History of Present Illness: Patient is a 66-year-old female with medical history of obesity, fibromyalgia, GERD, who presented to the ED with complaints of abdominal pain. Patient had perforated gastric ulcer with resulting exploratory laparatomy and repair about 1 month ago which was successful. About 1 week ago, she returned with increasing pain and was found to have a gastrocutaneous fistula extending from the anterior aspect of the antrum of the stomach to an oblong subcutaneous abscess and then to the skin. She was readmitted, reevaluated by general surgery, managed medically, and discharged with home health 2 days ago. She returns today with increasing abdominal pain. CT chest/abdomen/pelvis showed "Re- demonstrated findings which could represent a gastrocutaneous fistula though it may have resolved. A thin tract of tissue extends from the gastric antrum to the peritoneum, however the gas previously identified in the tract and the fluid along the peritoneal surface has essentially resolved. The abdominal wall fluid collection is unchanged. If the wound in the right upper quadrant is continuing to produce copious fluid then that would suggest that a fistula persists." Her labs are significant for WBC 15 and hgb 8.6. Vital signs stable. Her surgeon was consulted and recommended to manage conservatively with IV antibiotics and will see patient on Monday as he is out of town. Allergies omeprazole [From Prilosec] Allergy (Verified 07/25/16 05:39) Nausea/Vomiting aspartame Adverse Reaction (Verified 07/25/16 00:26) migraine Home medications list reviewed: Yes Home Medications: Buspirone HCl [Buspar] 15 mg PO Q6HR 08/18/14 Hydrocodone/Acetaminophen [Hydrocodon-Acetaminophn 10-325] 10 - 325 mg PO Q6HR 08/18/14 Lurasidone HCl [Latuda] 120 mg PO DAILY 08/18/14 OXcarbazepine [Trileptal] 600 mg PO BID 02/09/15 SUMAtriptan succinate [Sumatriptan Succinate] 100 mg PO BID PRN 07/25/16 Ranitidine [Zantac*] 150 mg PO BID PRN MDD 300mg 02/02/22 Pantoprazole [Protonix Tab*] 40 mg PO BID #60 tab 02/07/22 Hydrocodone 10/APAP 325 [[place] 10/325*] 1 tab PO Q12H PRN #30 tab 03/02/22 Minocycline HCl 100 mg PO BID #20 03/02/22 Smz./Tmp. [Bactrim Ds 800 MG/160 MG] 1 tab PO BID #20 tab 03/02/22 - Past Medical/Surgical History Diabetic: No -: degenerative disk -: fibromyalgia -: arthritis -: colitis -: depression -: gastric bypass -: Bi knee sx -: cholecystectomy -: bladder suspension -: Exlap with gastric perforation repair Psychosocial/ Personal History: Patient is . - Family History Father -: Other (see notes) Notes: asbestosis, degenerative back disease Mother -: Diabetes, Cancer, Other (see notes) Notes: skin ca, dementia - Social History Smoking Status: Never smoker Alcohol use: No CD- Drugs: No Caffeine use: Yes Place of Residence: Home Review of Systems Respiratory: Shortness of Breath Gastrointestinal: Abdominal Pain Physical Examination - Physical Exam General: Alert, In no apparent distress HEENT: Atraumatic, PERRLA, EOMI, Sclerae nonicteric Neck: Supple, 2+ carotid pulse no bruit, No LAD, Without JVD or thyroid abnormality Respiratory: Clear to auscultation bilaterally, Normal air movement Cardiovascular: Regular rate/rhythm, Normal S1 S2 Gastrointestinal: Non-distended, Tenderness Musculoskeletal: No tenderness Integumentary: No rashes Neurological: Normal speech, Normal strength at 5/5 x4 extr, Normal tone, Normal affect - Studies Laboratory Data (last 24 hrs) 03/05/22 14:05: PT 13.3 H, INR 1.20, APTT 31.5 03/05/22 14:05: Sodium 132 L, Potassium 3.6, BUN 9, Creatinine 0.84, Glucose 144 H, Total Bilirubin 0.3, AST 10 L, ALT < 10 L, Alkaline Phosphatase 98, Lipase 127 03/05/22 14:05: WBC 15.30 H D, Hgb 8.6 L, Hct 26.0 L, Plt Count 662 H Assessment and Plan - Problems (Diagnosis) (1) Intractable abdominal pain Current Visit: Yes Status: Acute (2) Cutaneous abscess of abdominal wall Current Visit: Yes Status: Acute (3) Gastrocutaneous fistula Current Visit: Yes Status: Acute (4) Pleural effusion Current Visit: Yes Status: Acute - Plan -Status post Tucker patch for perforated gastric ulcer. CT abdomen redomonstrating gastrocutaenous fistula, but healing appropriately. Surgeon consulted and wishes for treatment with IV antibiotics. Wound cultures pending. We will await further recommendation from surgeon. -Patient is complaining of severe abdominal pain. Dilaudid ordered PRN. -Blood sugar monitor and glucose control to optimize healing. -H&H stable. Continue to monitor hemoglobin and transfuse if less than 7.0. -Wound healing consulted -Monitor and replete electrolytes per protocol -Reconcile and continue home medication -Lovenox for VTE prophylaxis -Full code Discharge Plan: Home Plan to discharge in: Greater than 2 days - Advance Directives Does patient have a Living Will: No Does patient have a Durable POA for Healthcare: Yes - Code Status/Comfort Care Code Status Assessed: Yes (Full) Critical Care: No Time Spent Managing Pts Care (In Minutes): 50
[2022-03-05] MEDS ORDERED: HYDROMORPHONE HCL 1 MG/ML INJ ONE ×2 (19:41→23:11)
[2022-03-05] MEDS ORDERED: LORazepam 2 MG/ML VIAL ONE (21:13)
[2022-03-05 21:34] LABS: SARS-CoV-2 Antigen Rapid Res Negative (Negative)
[2022-03-05] MEDS ORDERED: ACETAMINOPHEN 500 MG TAB PO PRN (22:36)
[2022-03-05] MEDS ORDERED: D50W 25 GM/50 ML SYRINGE IV PRN (22:36)
[2022-03-05] MEDS: NA CHLORIDE 0.9% 1,000 ML IV SCH (22:36)
[2022-03-05] MEDS ORDERED: ONDANSETRON 4 MG/2 ML VIAL IV PRN (22:36)
[2022-03-05] MEDS ORDERED: GLUCAGON 1 MG/VIAL IM PRN (22:36)
[2022-03-05] MEDS ORDERED: D10W 125 ML IV PRN (22:46)
[2022-03-05] MEDS: HYDROMORPHONE HCL 1 MG/ML INJ IV PRN (23:00)
[2022-03-05] MEDS ORDERED: NA CHLORIDE 0.9% 1,000 ML ONE (23:11)
[2022-03-06 00:07] VITALS: BMI 29.8
[2022-03-06] MEDS ORDERED: NA CHLORIDE 0.9% 100 ML ONE (00:41)
[2022-03-06] MEDS ORDERED: PIPERACIL/TAZO 3.375 GM VIAL IV ONE ×2 (00:42→08:06)
[2022-03-06] MEDS: PIPER TAZO 3.375 GM in NA CHLORIDE 0.9% 100 ML IV SCH ×3 (01:00→17:43)
[2022-03-06] MEDS ORDERED: HYDROMORPHONE HCL 1 MG/ML INJ ONE ×2 (02:30→06:00)
[2022-03-06] MEDS: HYDROMORPHONE HCL 1 MG/ML INJ IV PRN ×2 (02:30→05:35)
[2022-03-06 03:57] LABS: Absolute Lymphocytes (CBC) 1.7 K/uL (0.7-4.9); Hematocrit 24.8 % (36.0-45.0); MCV 83.7 fL (80-100); MPV 6.6 fL (7.6-11.3); RBC Red Blood Cell Count 2.96 M/uL (3.86-4.86)
[2022-03-06 04:13] LABS: Phosphorus 3.5 mg/dL (2.5-4.9); Potassium 4.1 mmol/L (3.5-5.1)
[2022-03-06] MEDS: INSULIN -REGULAR HUMAN 50 UNIT/0.5 ML ML SQ SCH ×4 (07:30→21:00)
[2022-03-06] MEDS: ENOXAPARIN 40 MG/0.4 ML SQ SCH (08:04)
[2022-03-06] MEDS: NA CHLORIDE 0.9% 1,000 ML IV SCH ×3 (08:04→21:36)
[2022-03-06] MEDS ORDERED: ENOXAPARIN 40 MG/0.4 ML SQ ONE (08:06)
[2022-03-06] MEDS ORDERED: NA CHLORIDE 0.9% 1,000 ML ONE (08:07)
[2022-03-06] MEDS ORDERED: NA CHLORIDE 0.9% 50 ML ONE (08:07)
[2022-03-06] MEDS ORDERED: Oxycodone HCl/Acetaminophen 1 TAB TAB PO PRN (09:03)
--- NOTE | 2022-03-06 09:50 | P.PN ---
Subjective Date of Service: 03/06/22 Chief Complaint: Abdominal Cutaneous Abscess Patient complaining of severe abdominal pain resting pain medication Review of Systems Gastrointestinal: Abdominal Pain Physical Examination - Vital Signs Temperature: 97.4 F Blood Pressure: 121/60 Pulse: 112 Respirations: 18 Pulse Ox (%): 92 - Physical Exam General: Alert, Moderate distress Neck: Supple Respiratory: Clear to auscultation bilaterally Cardiovascular: No edema, Regular rate/rhythm Gastrointestinal: Tenderness - Studies Laboratory Data (last 24 hrs) 03/05/22 14:05: PT 13.3 H, INR 1.20, APTT 31.5 03/05/22 14:05: Sodium 132 L, Potassium 3.6, BUN 9, Creatinine 0.84, Glucose 144 H, Total Bilirubin 0.3, AST 10 L, ALT < 10 L, Alkaline Phosphatase 98, Lipase 127 03/05/22 14:05: WBC 15.30 H D, Hgb 8.6 L, Hct 26.0 L, Plt Count 662 H Assessment And Plan - Current Problems (Diagnosis) (1) Cutaneous abscess of abdominal wall Current Visit: Yes Status: Acute Plan: . Patient is 66 years of age recently had surgery by Dr. Morrow seen as an outpatient was put on antibiotics discharged came back again complaining of severe abdominal pain T scan is finding listed below white count is a little elevated appears to be in moderate distress discussed with Dr. Morrow plan on IV antibiotics pain control stable surgical revision on Monday Re- demonstrated findings which could represent a gastrocutaneous fistula though it may have resolved. A thin tract of tissue extends from the gastric antrum to the peritoneum, however the gas previously identified in the tract and the fluid along the peritoneal surface has essentially resolved. The abdominal wall fluid collection is unchanged. If the wound in the right upper quadrant is continuing to produce copious fluid then that would suggest that a fistula persists. 2. Small bilateral effusions with underlying atelectasis. White count was elevated history of anxiety he does take narcotics at home
[2022-03-06] MEDS ORDERED: VANCOMYCIN 1.75 GM in NA CHLORIDE 0.9% 500 ML IVPB ONE (10:00)
[2022-03-06] MEDS: HYDROMORPHONE HCL 2 MG/ML inj IV PRN ×4 (10:06→22:16)
--- NOTE | 2022-03-06 12:50 | EKG ---
Test Date: 2022-03-05 Test Time: 14:53:37 Padding Machine Operator: SIDNEY MEASUREMENT RESULTS: Intervals: Rate: 100 WA: 158 QRSD: 82 QT: 334 QTc: 430 [place]: P: 63 WA: 158 QRS: 16 T: 16 INTERPRETIVE STATEMENTS: Normal sinus rhythm Normal ECG Compared to ECG 03/01/2022 12:28:27 Sinus tachycardia no longer present Myocardial infarct finding no longer present Electronically Signed On 03-06-22 12:49:08 CDT by Fausto Vo
[2022-03-06] MEDS: HOME MED 1 EA UNK (Hydroxyzine Hcl [Atarax] 10 MG Tablet) PO SCH (21:00)
[2022-03-06] MEDS: VANCOMYCIN 1.25 GM in NA CHLORIDE 0.9% 250 ML IVPB SCH (21:36)
[2022-03-06] MEDS: QUETIAPINE 25 MG TAB PO SCH (21:36)
[2022-03-07] MEDS: PIPER TAZO 3.375 GM in NA CHLORIDE 0.9% 100 ML IV SCH ×3 (01:54→15:56)
[2022-03-07] MEDS: NA CHLORIDE 0.9% 1,000 ML IV SCH ×3 (04:36→21:32)
[2022-03-07] MEDS: HYDROMORPHONE HCL 2 MG/ML inj IV PRN ×5 (04:46→22:09)
[2022-03-07 06:15] LABS: Absolute Lymphocytes (CBC) 1.8 K/uL (0.7-4.9); Hematocrit 23.1 % (36.0-45.0); Lymphocytes % 21.3 % (15.3-44.8); MCV 84.7 fL (80-100); MPV 6.6 fL (7.6-11.3); RBC Red Blood Cell Count 2.73 M/uL (3.86-4.86)
[2022-03-07 06:26] LABS: Potassium 3.5 mmol/L (3.5-5.1)
[2022-03-07] MEDS: INSULIN -REGULAR HUMAN 50 UNIT/0.5 ML ML SQ SCH ×4 (07:30→21:00)
[2022-03-07] MEDS: LATUDA 80 MG PO SCH (08:27)
[2022-03-07] MEDS: VANCOMYCIN 1.25 GM in NA CHLORIDE 0.9% 250 ML IVPB SCH ×2 (08:27→21:12)
[2022-03-07] MEDS: ENOXAPARIN 40 MG/0.4 ML SQ SCH (08:29)
[2022-03-07] MEDS: HOME MED 1 EA UNK (Hydroxyzine Hcl [Atarax] 10 MG Tablet) PO SCH ×3 (08:29→21:00)
[2022-03-07] MEDS ORDERED: LURASIDONE HCL 80 MG PO SCH (09:00)
[2022-03-07 09:39] VITALS: O2SAT 93
[2022-03-07] MEDS: OXYBUTYNIN ER 5 MG TAB PO SCH (11:13)
--- NOTE | 2022-03-07 17:16 | P.PN ---
Subjective Date of Service: 03/07/22 Chief Complaint: Abdominal Cutaneous Abscess Subjective: Improving No acute events overnight. She reports that her abdominal pain is improving. She also notes that the drainage from the surgical site has also reduced. She denies chest pain, nausea, or vomiting. Review of Systems 10-point ROS is otherwise unremarkable Gastrointestinal: Abdominal Pain (minimal) Integumentary: Other (surgical site with minimal drainage) Physical Examination - Vital Signs Temperature: 97.4 F Blood Pressure: 141/52 Pulse: 121 Respirations: 16 Pulse Ox (%): 94 - Physical Exam General: Alert, In no apparent distress, Oriented x3 HEENT: Atraumatic, PERRLA, Mucous membr. moist/pink, EOMI, Sclerae nonicteric Neck: Supple, JVD not distended Respiratory: Clear to auscultation bilaterally, Normal air movement Cardiovascular: No edema, Regular rate/rhythm, Normal S1 S2, No gallops, No rubs, No murmurs Gastrointestinal: Normal bowel sounds, Soft and benign, Non-distended, No rebound, No guarding, Tenderness (minimal) Musculoskeletal: No clubbing Integumentary: No rashes Neurological: Normal speech, Cranial nerves 3-12 intact, Normal affect - Studies Microbiology Data (last 24 hrs): 03/05/22 18:27 Wound - Right Abdomen Gram Stain - Final Assessment And Plan - Plan # Concern for Sepsis due to Abdominal Abscess vs Gastrocutaneous Fistula in the setting of Recent Perforated Gastric Ulcer s/p Tucker Patch # Gastroesophageal Reflux Disease Appears to be improving clinically with antibiotics. - No longer meeting SIRS criteria at the time of my evaluation - General Surgery consulted and spoke with Dr. Morrow - Unsure whether or not to proceed with another surgery - Recommended placing her NPO at midnight and holding VTE prophylaxis - he will make a decision regarding additional procedures tomorrow morning - Continue vancomycin + piperacillin-tazobactam for now # Morbid Obesity s/p Samantha-en-Y Gastric Bypass # Fibromyalgia - Continue home medications Ernesto Cornelius M.D.
[2022-03-07] MEDS: QUETIAPINE 25 MG TAB PO SCH (21:12)
[2022-03-08] MEDS: PIPER TAZO 3.375 GM in NA CHLORIDE 0.9% 100 ML IV SCH ×2 (02:02→08:22)
[2022-03-08] MEDS: HYDROMORPHONE HCL 2 MG/ML inj IV PRN ×3 (02:19→10:11)
[2022-03-08 06:21] LABS: Absolute Lymphocytes (CBC) 1.8 K/uL (0.7-4.9); Hematocrit 23.8 % (36.0-45.0); Lymphocytes % 24.9 % (15.3-44.8); MCV 84.7 fL (80-100); MPV 6.6 fL (7.6-11.3); RBC Red Blood Cell Count 2.81 M/uL (3.86-4.86)
[2022-03-08 06:30] LABS: Bicarbonate 22 mmol/L (21-32); Glomerular Filtration Rate 76 ml/min (=/>90); Glucose Level 103 mg/dL (74-106); Potassium 3.4 mmol/L (3.5-5.1); Sodium Level 143 mmol/L (136-145)
[2022-03-08 06:34] LABS: BUN Blood Urea Nitrogen < 3 mg/dL (7-18)
[2022-03-08] MEDS ORDERED: POTASSIUM CL 40 MEQ in NA CHLORIDE 0.9% 500 ML IV SCH (07:00)
[2022-03-08] MEDS: INSULIN -REGULAR HUMAN 50 UNIT/0.5 ML ML SQ SCH ×2 (07:30→11:30)
[2022-03-08] MEDS: HOME MED 1 EA UNK (Hydroxyzine Hcl [Atarax] 10 MG Tablet) PO SCH ×2 (09:00→14:00)
[2022-03-08] MEDS: VANCOMYCIN 1.25 GM in NA CHLORIDE 0.9% 250 ML IVPB SCH (09:00)
[2022-03-08] MEDS ORDERED: LIDOCAINE 4% PATCH TOP SCH (09:00)
[2022-03-08] MEDS ORDERED: POTASSIUM CL SA 10 MEQ TAB PO ONE (09:00)
[2022-03-08] MEDS: LATUDA 80 MG PO SCH (09:24)
[2022-03-08] MEDS: OXYBUTYNIN ER 5 MG TAB PO SCH (09:24)
[2022-03-08] MEDS: NA CHLORIDE 0.9% 1,000 ML IV SCH (10:11)
[2022-03-08 12:26] VITALS: BP 150/71; TEMP 96.9
--- NOTE | 2022-03-08 13:28 | P.CNS ---
Date of Consult: 03/08/22 PC: This 66-year-old female presented to the emergency room with severe abdominal pain for diagnosis and treatment. HPC: This is a patient well-known to me, she had an exploratory laparotomy for a perforated gastric antrum a few weeks ago. The patient has also had a Samantha-en-Y. She underwent a Tucker patch at that time. A Hernandez-Sullivan drain had been placed. Postoperatively the patient had done well, the patient's drain was removed, and she was see me in my office as an outpatient. The patient had developed a wound tract infection. She had been in the hospital prior occasions for evaluation. Most recently a Gastrografin CT scan did not show any definitive signs of a fistula between the limbs and the exterior. There is a wound tract that does have fluid in it. It has gone down in size. This patient also has chronic pain management issues, which got her the perforation most likely in the first place because of her use with aspirin. PSHx: Samantha-en-Y, PMHx: Depression Social Hx: Omeprazole, Sys R: No cough, wheeze, shortness of breath. No chest pain or palpitations. Denies any urinary complaints O/E: Awake alert vital signs are stable in good spirits today anxious to go home HEENT: Within normal limits Chest: Chest movement equal bilaterally Abd: The patients abdominal wound is clean around the edges. I applied some gentle pressure around the edges and got probably 10 cc of old purulent fluid out of the incision. This is what was seen on the CT scan. The patient feels much better after having done this. The opening at the skin is now more open, and I feel this is establish better drainage. [place]: Intact Data: CT scans reviewed Impression: Patient is stable for discharge Plan: I have been out of town over the weekend, and this is my first opportunity to see the patient. I had been able to review her films on my laptop computer remotely. She is much improved, and has a good understanding of what is going on. She does complain of some sciatic pain, we also addressed her use of narcotics and staying in contact with her pain management doctor. She understands and wants to be discharged. She will see me tomorrow my office she has an appointment for 10:00.
--- NOTE | 2022-03-08 13:59 | CON ---
History Of Present Illness: This is a 66-year-old female. I was consulted for MRSA infection of the abdominal wound. The patient is currently being treated with IV vancomycin and Zosyn. The patient denies any headache, nausea, vomiting, chest pain, abdominal pain, constipation, or diarrhea. The pa warren had abdominal surgery about a month ago after which she developed abdominal fistula. The patie nt denies any other problems except having discharge from the right lower abdominal wound site. She came to the hospital because of abdominal discomfort. Her wound cultures are growing MRSA. Past Medical History: Obesity, fibromyalgia, GERD, degenerative disk disease, arthritis, colitis, de pression, gastric bypass, bilateral knee surgery, cholecystectomy, bladder suspension, exploratory wi th gastric perforation repair. Social History: Nonsmoker, nondrinker. Family History: Noncontributory. Medications: Vancomycin and Zosyn. See MAR for other medications. Allergies: OMEPRAZOLE AND ASPARTAME. Review of Systems: A 10-point review was performed. Physical Examination: General: This is a 66-year-old female, lying in bed, not in any acute cardiopulmonary distress. Vital Signs: Temperature 96.9, pulse 90, respirations 18, blood pressure 150/71. HEENT: Unremarkable. Neck: Supple. Lungs: Basal crackles. Heart: S1, S2. Regular. Abdomen: Soft, nontender. Bowel sounds present. Abdominal wound and jennifer at the mid abdomen are a noted. Extremity: No edema. Laboratory Data: Shows WBC 7.2 down from 15, hemoglobin 7.7, platelets 633. Chemistry shows sodium 143, potassium 3.4, chloride 113, bicarb 22, BUN 3, creatinine 0.8. Albumin level is 2.6. Assessment And Plan: A 66-year-old female with abdominal pain, status post fistula repair surgery, g astric perforation, status post gastric bypass surgery. The patient is currently on vancomycin and Z osyn. Wound cultures are growing methicillin-resistant Staphylococcus aureus. Consider applying Rekha troban twice daily to the wound site. Continue vancomycin. Consider holding back Zosyn. If the pat ient continued to improve, then recommend switching the patient to Cipro and doxycycline on discharge . Continue supportive care and monitor for signs of infection with WBC and fever trends. Anemia of chronic disease, moderate protein-calorie malnourishment. Thank you Dr. Cornelius for consult. NF/MODL Voice ID: [id number] Report ID: [id number]
[2022-03-08] MEDS ORDERED: HYDROCODONE/APAP 10/325 TAB PO ONE (14:11)
--- NOTE | 2022-03-08 14:26 | P.DS ---
Admission Date: 03/05/22 Discharge Date: 03/08/22 Disposition: ROUTINE DISCHARGE Discharge Condition: GOOD Reason for Admission: Abdominal Cutaneous Abscess Consultations: 1. General Surgery Hospital Course: DIAGNOSES: # Concern for Sepsis due to MRSA Abdominal Abscess vs Gastrocutaneous Fistula in the setting of Recent Perforated Gastric Ulcer s/p Tucker Patch # Gastroesophageal Reflux Disease # Morbid Obesity s/p Samantha-en-Y Gastric Bypass # Fibromyalgia HOSPITAL COURSE: Ms. Minnie Flores is a 66 year old female with a past medical history significant for recent perforated gastric ulcer s/p Tucker patch, gastroesophageal reflux disease, and morbid obesity s/p Samantha-en-Y gastric bypass who was admitted to the [facility] on 03/05/2022 for abdominal pain and drainage from her surgical wound. She was admitted to the Medicine service for further evaluation. General Surgery was consulted and she was evaluated by Dr. Morrow. He feels that her wound can be managed non-surgical and has cleared her for discharge from a surgical standpoint. Infectious Diseases was consulted and she was evaluated by Dr. Barajas. He has cleared her for discharge with a 10-day course of ciprofloxacin + doxycycline. On 03/08/2022, she was seen on rounds and deemed medically stable for discharge. She was discharged with instructions to schedule a follow-up appointment with her PCP in 3-5 days and to attend her surgery appointment with Dr. Morrow tomorrow. She was provided prescriptions for ciprofloxacin and doxycycline. She was given the opportunity to ask questions and reported no further questions. Furthermore, all questions were answered to the best of my ability. A copy of this discharge summary will be sent to the above providers to facilitate continuity of care. Today, I personally spent 20 minutes on her case, of which greater than 50% of the time was spent in patient education, counseling, and coordination of care as described above. - Physical Exam General: Alert, In no apparent distress, Oriented x3 HEENT: Atraumatic, PERRLA, Mucous membr. moist/pink, EOMI, Sclerae nonicteric Neck: Supple, JVD not distended Respiratory: Clear to auscultation bilaterally, Normal air movement Cardiovascular: No edema, Regular rate/rhythm, Normal S1 S2, No gallops, No rubs, No murmurs Gastrointestinal: Normal bowel sounds, Soft and benign, Non-distended, No rebound, No guarding, Tenderness (minimal) Musculoskeletal: No clubbing Integumentary: No rashes. Mid-right abdominal wound is with minimal purulent drainage Neurological: Normal speech, Cranial nerves 3-12 intact, Normal affect Vital Signs/Physical Exam: Temp Pulse Resp BP Pulse Ox 96.9 F 90 18 150/71 H 94 03/08/22 12:00 03/08/22 12:00 03/08/22 12:00 03/08/22 12:00 03/08/22 12:00 Laboratory Data at Discharge: WBC 7.20 K/uL (4.3-10.9) D 03/08/22 05:58 Hgb 7.7 g/dL (12.0-15.0) L 03/08/22 05:58 Hct 23.8 % (36.0-45.0) L 03/08/22 05:58 Plt Count 633 K/uL (152-406) H 03/08/22 05:58 PT 13.3 SECONDS (9.5-12.5) H 03/05/22 14:05 INR 1.20 03/05/22 14:05 APTT 31.5 SECONDS (24.3-36.9) 03/05/22 14:05 Sodium 143 mmol/L (136-145) 03/08/22 05:58 Potassium 3.4 mmol/L (3.5-5.1) L 03/08/22 05:58 BUN < 3 mg/dL (7-18) L 03/08/22 05:58 Creatinine 0.84 mg/dL (0.55-1.3) 03/08/22 05:58 Glucose 103 mg/dL (74-106) 03/08/22 05:58 Phosphorus 3.5 mg/dL (2.5-4.9) 03/06/22 03:27 Magnesium 2.0 mg/dL (1.8-2.4) 03/06/22 03:27 Total Bilirubin 0.3 mg/dL (0.2-1.0) 03/05/22 14:05 AST 10 U/L (15-37) L 03/05/22 14:05 ALT < 10 U/L (12-78) L 03/05/22 14:05 Alkaline Phosphatase 98 U/L (45-117) 03/05/22 14:05 Lipase 127 U/L (73-393) 03/05/22 14:05 Home Medications: Hydrocodone/Acetaminophen [Hydrocodon-Acetaminophn 10-325] 10 - 325 mg PO Q6HR 08/18/14 Lurasidone HCl [Latuda] 80 mg PO DAILY 08/18/14 Hydroxyzine HCl [Atarax] 10 mg PO TID 03/06/22 Oxybutynin Chloride [Ditropan Xl] 10 mg PO DAILY 03/06/22 Pantoprazole [Protonix Tab*] 40 mg PO DAILY 03/06/22 Quetiapine [Seroquel*] 50 mg PO BEDTIME 03/06/22 Ciprofloxacin HCl [Cipro 250 MG Tablet*] 500 mg PO BID 10 Days #40 tab 03/08/22 Doxycycline Hyclate 100 mg PO BID 10 Days #20 tab 03/08/22 Mupirocin Oint [Bactroban 2% Ointment*] 1 appl TOP BID #1 tube 03/08/22 New Medications: Mupirocin Oint [Bactroban 2% Ointment*] 1 appl TOP BID #1 tube Ciprofloxacin HCl [Cipro 250 MG Tablet*] 500 mg PO BID 10 Days #40 tab Doxycycline Hyclate 100 mg PO BID 10 Days #20 tab Physician Discharge Instructions: 1. Please schedule a follow-up appointment with your PCP in 3-5 days 2. Please attend your General Surgery appointment with Dr. Morrow tomorrow You were prescribed two antibiotics: - Doxycyline - please take 100 mg twice daily for 10 days - Ciprofloxacin - please take 500 mg twice daily for 10 days Diet: AHA Activity: Ad guillermo Followup: NONE,NONE [Primary Care Provider] - Time spent managing pt's care (in minutes): 20
[2022-03-08] MEDS ORDERED: VANCOMYCIN 1.25 GM in NA CHLORIDE 0.9% 250 ML IVPB SCH (15:00)
[2022-03-08] MEDS ORDERED: MUPIROCIN 2% OINT 22GM TUBE TOP SCH (21:00)
== END 2022-03-08 15:43 | disposition home health service (06) | DRG 603 ==
LOC: ER 13:24 → ERHOLD 19:27 → 4TH 03-06 08:34
PROVIDERS: ADMIT Internal Medicine Sleep Medicine; ATTEND Internal Medicine Sleep Medicine
DX: L02.211 Cutaneous abscess of abdominal wall (principal); J98.11 Atelectasis; K31.6 Fistula of stomach and duodenum; J90 Pleural effusion, not elsewhere classified; E44.0 Moderate protein-calorie malnutrition; E66.9 Obesity, unspecified; Z68.29 Body mass index [BMI] 29.0-29.9, adult; M79.7 Fibromyalgia; K21.9 Gastro-esophageal reflux disease without esophagitis; B95.62 Methicillin resistant Staphylococcus aureus infection as the cause of diseases classified elsewhere; D63.8 Anemia in other chronic diseases classified elsewhere; Z98.84 Bariatric surgery status; Z20.822 Contact with and (suspected) exposure to COVID-19
CPT/HCPCS: 36415; 71045; 71260; 74150; 74177; 80048; 80053; 80076; 80202; 81003; 82947; 83605; 83690; 83735; 84100; 84145; 84439; 84443; 85025; 85610; 85730; 87040; 87070; 87077; 87186; 87205; 87811; 93005; 97116; 97161; 99285; G0378; J0692; J1170; J1650; J2270; J2405; J2543; J3370; J3480; J7030; J7040; J7050; Q9967

== ENCOUNTER 2023-06-06 02:21 | Inpatient (IN) | payer OTHER ==
--- OUTSIDE RECORDS SUMMARY | 2023-06-06 03:27 | XMS REPORT | Continuity of Care Document ---
:1955 Author Organization [facility] t Address [address] [facility] [address] [place] [address] Care Team Providers Name Role Phone Ildefonso Bauer MD Primary Care Physician [phone] CHIQUITA ALDANA Attending Clinician Unavailable JENSEN JOY Attending Clinician Unavailable CAMACHO PRIDE Attending Clinician Unavailable MD RAMAN Attending Clinician Unavailable ILDEFONSO BAUER Attending Clinician Unavailable LAB90 Attending Clinician Unavailable DESIREE BUCKLEY Attending Clinician Unavailable ANAI BABCOCK Attending Clinician Unavailable ORLANDO WAGONER Attending Clinician Unavailable ROSSY SOLORIO Attending Clinician Unavailable ELIZABETH CANTU Attending Clinician Unavailable BOBBY HERRERA Attending Clinician Unavailable ANTIONETTE SHEETS Attending Clinician Unavailable TARAS GAMBOA Attending Clinician Unavailable SATNAM SLOAN Attending Clinician Unavailable Camacho Pride DO Attending Clinician FARTUN TUCKER Attending Clinician Unavailable ELIAN OLIVER Attending Clinician Unavailable JOHN LOCKPORT Attending Clinician Unavailable Ildefonso Bauer MD Attending Clinician [phone] Jensen Joy MD Attending Clinician BEN ESPINOZA Attending Clinician Unavailable Tomer CROSS, Suad Reyes Attending Clinician SUAD TUCKER Attending Clinician Unavailable DEANDRE STEWARD Attending Clinician Unavailable SANDRINE MEIER Attending Clinician Unavailable Kortney CROSS, Antionette Attending Clinician ELY LITTLE Attending Clinician Unavailable GENEVA CHERRY Attending Clinician Unavailable LAB47 Attending Clinician Unavailable Lee CROSS, Skyler Attending Clinician JAMAR TOTH Attending Clinician Unavailable ROSSI MICHAEL Attending Clinician Unavailable Rustam Garcia DO Attending Clinician Natanael CROSS, Jose Davis Attending Clinician [phone] Blanco Hickman DO Attending Clinician Unavailable Deon Lucas MD Attending Clinician Buddy CROSS, Rae Verdugo Attending Clinician NALLELY AYON Attending Clinician Unavailable JOSE SANTOYO Admitting Clinician Unavailable Payers Payer Name Policy Type Policy Number Effective Date Expiration Date Belgica jacob [facility] TXP [id number] 2021 CLASSIC NO PREMIUM 00:00:00 [employer] [facility] [id number] 2018 00:00:00 Problems Condition Condition Condition Status Onset Resolution Last Treating Co mments Source Name Details Category Date Date Treatment Clinician Date Morbid Morbid Disease Active 2022-07 Mayra obesity obesity 0-31 Seybold 00:00: - 00 Externa l Risk for Risk for Disease Active 2022-07 Kelse y falls falls 0-31 Seybold 00:00: - 00 Externa l Chronic, Chronic, Disease Active Kelse y continuous continuous 6-21 Se ybold use of use of 00:00: - opioids opioids 00 Externa l Pain Pain Disease Active Mayra medication medication 6-21 Se ybold agreement agreement 00:00: - signed signed 00 Externa l 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 R cheek Diastasis Diastasis Disease Active 2021-07 Matt sey recti recti 2-02 Seybold 00:00: - 00 Externa l Pharyngoes Pharyngoes Disease Active K nimokareen ophageal ophageal 03-18 Seybol d dysphagia dysphagia 00:00: - 00 Externa l History of History of Disease Active K milton gastric gastric 03-18 Seybold ulcer ulcer 00:00: - 00 Externa l History of History of Disease Active K milton abdominal abdominal 03-18 Seyb old surgery surgery 00:00: - 00 Externa l Prediabete Prediabete Disease Active K milton s s 01-08 Seybold 00:00: - 00 Externa l Unspecifie Unspecifie Disease Active K milton d d 01-07 Seybold inflammato inflammato 00:00: - ry ry 00 Externa spondylopa spondylopa l thy, thy, lumbar lumbar region region GERD GERD Disease Active Mayra (gastroeso (gastroeso 5-05 Se ybold phageal phageal 00:00: - reflux reflux 00 Externa disease) disease) l Intractabl Intractabl Disease Active Janny rose e migraine e migraine 5-25 Se ybold with aura with aura 00:00: - with with 00 Externa status status l migrainosu migrainosu s s DJD DJD Disease Active Mayra (degenerat (degenerat 5-25 Se ybold promise joint promise joint 00:00: - disease), disease), 00 Exte rna lumbar lumbar l Postural Postural Disease Active Mattse y syncope syncope 5-25 Seybold 00:00: - 00 Externa l Prolonged Prolonged Disease Active Matt arciniega Q-T Q-T 5-25 Seybold interval interval 00:00: - on ECG on ECG 00 Externa l Major Major Disease Active Mayra depressive depressive 5-25 Se ybold disorder, disorder, 00:00: - recurrent recurrent 00 Exte rna episode, episode, l moderate moderate degree degree Thrombocyt Thrombocyt Disease Active Janny rose osis osis 5-10 Seybold 00:00: - 00 Externa l E coli E coli Disease Active [facility] [...] Added automatic ally from request for surgery [id number] Hyperlipid Hyperlipid Disease Active Janny rose emia emia 4-29 Seybold 00:00: - 00 Externa l Lumbar Lumbar Disease Active 2016-07 Mayra radiculiti radiculiti 2-19 Se ybold s s 00:00: - 00 Externa l Pain in Pain in Disease Active Mayra both knees both knees 9-21 Se ybold 00:00: 00 Pain in Pain in Disease Active Mayra both knees both knees 9-21 Se ybold 00:00: - 00 Externa l Pain in Pain in Disease Active Mayra both knees both knees 9-21 Se ybold 00:00: 00 SIADH SIADH Disease Active Mayra (syndrome (syndrome 7-28 Seyb old of of 00:00: - inappropri inappropri 00 Ex terna ate ADH ate ADH l production production ) (multi ) (multi HCC) HCC) Primary Primary Disease Active Mayra osteoarthr osteoarthr 6-23 Se ybold itis of itis of 00:00: - both knees both knees 00 Ex terna l Knee pain, Knee pain, Disease Active 2014-07 K nimoy bilateral bilateral 2-18 Seyb old 00:00: 00 Knee pain, Knee pain, Disease Active 2014-07 K elsey bilateral bilateral 2-18 Seyb old 00:00: - 00 Externa l Knee pain, Knee pain, Disease Active 2014-07 K elsey bilateral bilateral 2-18 Seyb old 00:00: 00 Hyponatrem Hyponatrem Disease Active 2014-07 K elsey ia ia 2-14 Seybold 00:00: - 00 Externa l Osteopenia Osteopenia Disease Active 2012-07 K elsey 0-29 Seybold 00:00: - 00 Externa l Chronic Chronic Disease Active Mayra migraine migraine 6-06 Seybol d without without 00:00: - aura aura 00 Externa l Tobacco Tobacco Disease Active Mayra abuse abuse 6 Seybold 00:00: - 00 Externa l Chronic Chronic Disease Active Mayra migraine migraine 6-06 Seybol d 00:00: 00 Reactive Reactive Disease Active Kelse y hypoglycem hypoglycem 3-14 Se ybold ia ia 00:00: - 00 Externa l Vitamin D Vitamin D Disease Active Matt sey deficiency deficiency 3-14 Se ybold 00:00: - 00 Externa l Bipolar 1 Bipolar 1 Disease Active Matt sey disorder disorder 8-23 Seybol d (multi (multi 00:00: - HCC) HCC) 00 Externa l Lymphocyti Lymphocyti Disease Active Overview : Mayra c colitis c colitis 8- Formattin S eybold 00:00: g of this 00 note might be different from the original. Diagnosed by colonosco py in 2009 Colon Colon Disease Active Mayra polyps polyps 8 Seybold 00:00: - 00 Externa l Lymphocyti Lymphocyti Disease Active Overview : Mayra c colitis c colitis 8 Formattin S eybold 00:00: g of this - 00 note Externa might be l different from the original. 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) (current) Herm flynn drug drug therapy therapy Active Diagnosis 11/04/2021 [facility] Bipolar Bipolar Problem Active 2021-11-04 Me moria disorder, disorder, 02:45:30 l current current Félix episode episode depressed, depressed, moderate moderate Active Problem 11/04/2021 [facility] Unspecifie Unspecifi Diagnosis Active 2020-02-25 Memoria d bipolar ed bipolar 02:46:24 l and and Félix related related disorder disorder Active Diagnosis 02/25/2020 [facility] Essential Essential Disease Active Matt sey (hemorrhag (hemorrhag Se ybold ic) ic) - thrombocyt thrombocyt Ex terna hemia hemia l (multi (multi HCC) HCC) Allergies, Adverse Reactions, Alerts Allergy Allergy Status Severity Reaction(s) Onset Inactive Treating Comm ents Source Name Type Date Date Clinician Seroquel Seroquel Active impairs Memor ia sleep 4-27 l 00:00: Jay Omeprazo Omeprazo Active throat swell Memoria le le and bleed 4-27 l 00:00: Jay Aspartam Aspartam Active migraines Mem oria e e 4-27 l 00:00: Jay HYPNOTIC HYPNOTIC Active migraines Mem oria S S 4-27 l 00:00: Jay 00 No Known DA Active U 2019-07 [facility] All[facility]ie [facility] 00:[facility]: [facility] 00 are [facility] st omeprazo DA Active SV 2019-07 [facility] le 0-24 [facility] 00:00: [facility] 00 are [facility] st quetiapi DA Active SV 2019-07 [facility] ne 0-24 [facility] 00[facility]00: Health 00 are [facility] st No Known DA Active U 2019-07 [facility] Allergie 0-24 [facility] 00:00: Health 00 are [facility] st omeprazo DA Active SV ANAPHYLAXIS 2019-07 [facility] le 0-24 [facility] 00:00: [facility] 00 are [facility] st quetiapi DA Active SV ABNORMAL 2019-07 [facility] ne DREAMS 0-24 [facility] 00:00: [facility] 00 are [facility] st Omeprazo Propensi [facility]elling [facility] adverse [facility]: Medical reaction 00 [place] Quetiapi Propensi Active Other ([facility] faint [facility] Comments) 16 [facility] reaction 00 Center s OMEPRAZO Allergy Active Swelling [facility] LE 07-25 00:00: 00 QUETIAPI Allergy Active Other [facility] NE 07-25 00:00: 00 ASPARTAM Allergy Active 2016-[address] [facility] 08[facility] Aspartam Propensi Active Other 2016-07 Headaches Matt sey e ty to 08-02 - Seybold adverse 00:00: triggers reaction 00 migraines s Aspartam Propensi Active Other 2016-07 Headaches Matt sey e ty to 08-02 - Seybold adverse 00:00: triggers - reaction 00 migraines Exter na s l Aspartam Drug Active 2016-[address] [facility] Allergy 08-02 reaction( [facility] Medical 00 migraines Center , OtherHead aches - triggers migraines Omeprazo Propensi Active Other Mayra schafer ty to 07-25 reaction( Seybold adverse 00:00: s): - reaction 00 Nausea/Vo Exter na s miting l Omeprazo Drug Active Swelling 2014-07 Tongue Mayra le Allergy 2-04 swelling Seybold 00:00: and gum - 00 bleeding Externa l Quetiapi Drug Active Mayra hall Intolera 5-25 Seybold Fumarate nce 00:00: - 00 Externa l Social History Social Habit Start Date Stop Date Quantity Comments Source Gender identity Mayra louis - External History SDOH Mayra clinton Alcohol Std Drinks - Exte rnal History SDOH Mayra clinton Alcohol Comment - Externa l Exposure to Not sure Mayra segura SARS-CoV-2 (event) Sexual orientation [facility] History of Social 2023-03-27 2023-03-27 Mayra Ramon function 00:00:00 00:00:00 - External Cigarettes smoked 2022-12-28 2022-12-28 Mayra Ramon current (pack per 00:00:00 00:00:00 - Exter nal day) - Reported Cigarette 2022-12-28 2022-12-28 Mayra Ramon pack-years 00:00:00 00:00:00 - External Tobacco use and 2022-12-28 2022-12-28 Smokeless tobacco Ke maryey Seybold exposure 00:00:00 00:00:00 non-user - External History SDIL 2020-12-01 2020-12-01 1 Mayra Collier ld Alcohol Frequency 00:00:00 00:00:00 - Exter nal History SDOH 2020-12-01 2020-12-01 2 Mayra clinton Alcohol Binge 00:00:00 00:00:00 - External History SDOH Social 2020-12-01 2020-12-01 5 Kelse y Seybold Connections Phone 00:00:00 00:00:00 - Exter nal History SDOH Social 2020-12-01 2020-12-01 2 Kelse y Seybold Connections Get 00:00:00 00:00:00 - Externa l Together History SDIL Social 2020-12-01 2020-12-01 3 Kelse y Seybold Connections Buddhism 00:00:00 00:00:00 - Exte rnal History SDIL Social 2020-12-01 2020-12-01 1 Kelse y Seybold Connections 00:00:00 00:00:00 - External Membership History SDIL Social 2020-12-01 2020-12-01 3 Kelse y Seybold Connections 00:00:00 00:00:00 - External Meetings History SDIL Social 2020-12-01 2020-12-01 3 Kelse y Seybold Connections Living 00:00:00 00:00:00 - Exte rnal History SDIL 2020-12-01 2020-12-01 3 Mayra Collier ld Physical Activity 00:00:00 00:00:00 - Exter nal DPW History SDIL 2020-12-01 2020-12-01 2 Mayra clinton Physical Activity 00:00:00 00:00:00 - Exter nal MPS History SDIL Stress 2020-12-01 2020-12-01 4 Kelse y Seybold 00:00:00 00:00:00 - External History SDOH 2020-12-01 2020-12-01 5 Mayra clinton Financial 00:00:00 00:00:00 - External History SDOH IPV 2020-12-01 2020-12-01 2 Mayra Carroll eybold Fear 00:00:00 00:00:00 - External History SDOH IPV 2020-12-01 2020-12-01 2 Mayra Carroll eybold Emotional 00:00:00 00:00:00 - External History SDOH IPV 2020-12-01 2020-12-01 2 Mayra Carroll eybold Physical Abuse 00:00:00 00:00:00 - External History SDOH IPV 2020-12-01 2020-12-01 2 Mayra Carroll eybold Sexual Abuse 00:00:00 00:00:00 - External History SDOH Food 2020-12-01 2020-12-01 1 Mayra Ramon Worry 00:00:00 00:00:00 - External History SDOH Food 2020-12-01 2020-12-01 1 Mayra Ramon Scarcity 00:00:00 00:00:00 - External History SDOH 2020-12-01 2020-12-01 2 Mayra clinton Transport Med 00:00:00 00:00:00 - External History SDOH 2020-12-01 2020-12-01 2 Mayra clinton Transport Non-Med 00:00:00 00:00:00 - Exter nal History SDOH 2020-12-01 2020-12-01 2 Mayra clinton Housing Unable to 00:00:00 00:00:00 - Exter nal Pay History SDOH 2020-12-01 2020-12-01 1 Mayra clinton Housing Places 00:00:00 00:00:00 - External Lived History SDOH 2020-12-01 2020-12-01 2 Mayra clinton Housing Homeless 00:00:00 00:00:00 - Interactive Developer al Last Year Alcohol intake 2020-11-05 2020-11-[address] [facility] 00:[facility]:00 00:00:00 non-drinker of Medical Ce nter alcohol (finding) History of tobacco 2011-02-07 Cigarette Smoker Mayra Ramon use 00:00:00 - External Sex Assigned At [address] [facility] Smoking Status Start Date Stop Date Source Ex-smoker 2022-12-28 00:00:00 2022-12-28 00:00:00 Mayra S eybold - External Medications Ordered Filled Start Stop Current Ordering Indication Dosage Frequency Signature Comments Components Source Medication Medication Date Date Medication? Clinician (SIG) Name Name Trakennydone 2022-07 Yes by other Inga ey HCl 50 MG 0-31 route. Seybold oral Tablet 10:43: - 02 Externa l HYDROcodone 2022-07 Yes [id number] 2{tbl} Q.25D Take 2 Mayra -Acetaminop 0-30 tablets by Se ybold hen ([place]) 00:00: mouth - 10-325 MG 00 every 6 Externa oral Tablet hours as l needed for pain For chronic pain secondary to fibromyalg ia; please allow early refill as pt going OOT. Lurasidone 2022-07 Yes 1{tbl} Take 1 Matt sey HCl 120 MG 0-20 tablet by Seyb old oral Tablet 00:00: mouth - 00 daily WITH Externa FOOD. l Triamcinolo 2022-07- No [id number] 80mg Mayra ne 0-18 10-18 Seybold Acetonide 21:45: 21:40 - (Kenalog) 00 :00 Externa [40 mg/mL] l 80mg TOTAL - Physician Administere d ([id number]) Triamcinolo 2022-07- No [id number] 80mg 80 mg, Mayra ne 0-18 10-18 Physician Seybold Acetonide 21:45: 21:40 Administer - (Kenalog) 00 :00 ed, ONCE, Exter na [40 mg/mL] On Mon l 80mg TOTAL 04/26/23 - Physician at 1645, Administere For 1 dose d (J3301) Sumatriptan 2022-07 Yes [id number] TAKE ONE Mayra Succinate 0-13 (1) Seybold 100 MG oral 00:00: TABLET(S) - Tablet 00 BY MOUTH Externa AT THE l ONSET OF MIGRAINE. MAY REPEAT AFTER TWO HOURS IF NEEDED. MAX OF TWO TABLETS PER DAY. Sumatriptan 2022-07 Yes [id number] TAKE ONE Mayra Succinate 0-13 (1) Seybold 100 MG oral 00:00: TABLET(S) - Tablet 00 BY MOUTH Externa AT THE l ONSET OF MIGRAINE. MAY REPEAT AFTER TWO HOURS IF NEEDED. MAX OF TWO TABLETS PER DAY. HYDROcodone 2022-07 Yes [id number] 2{tbl} Q.25D Take 2 Mayra -Acetaminop 0-02 tablets by Se louis bari ([employer]) 00:00: mouth - 10-325 MG 00 every 6 Externa oral Tablet hours as l needed for pain For chronic pain secondary to fibromyalg ia; please allow early refill as pt going OOT. Sumatriptan Yes [id number] TAKE ONE Mayra Succinate 8-15 (1) Seybold 100 MG oral 00:00: TABLET(S) - Tablet 00 BY MOUTH Externa AT THE l ONSET OF MIGRAINE. MAY REPEAT AFTER TWO HOURS IF NEEDED. MAX OF TWO TABLETS PER DAY. HYDROcodone Yes [id number] 2{tbl} Q.25D Take 2 Mayra -Acetaminop 8-10 tablets by Blinkmirella bari ([employer]) 00:00: mouth - 10-325 MG 00 every 6 Externa oral Tablet hours as l needed for pain For chronic pain secondary to fibromyalg ia; please allow early refill as pt going OOT Triamcinolo 2022- No [id number] 80mg Mayra ne 12-28 Seybold Acetonide 18:30: 18:42 - (Kenalog) 00 :00 Externa [40 mg/mL] l 80mg TOTAL - Physician Administere d ([id number]) Triamcinolo 2022- No [id number] 80mg 80 mg, Mayra ne 12-28 Physician Seybold Acetonide 18:30: 18:42 Administer - (Kenalog) 00 :00 ed, ONCE, Exter na [40 mg/mL] On Mon l 80mg TOTAL 12/28/22 at - Physician 1330, For Administere 1 dose d (J3301) HYDROcodone Yes [id number] 2{tbl} Q.25D Take 2 Mayra -Acetaminop 6-14 tablets by Blinkmirella candelaria ([employer]) 00:00: mouth - 10-325 MG 00 every 6 Externa oral Tablet hours as l needed for pain For chronic pain secondary to fibromyalg ia; please allow early refill as pt going OOT Sumatriptan Yes [id number] TAKE ONE Mayra Succinate 5-17 (1) Seybold 100 MG oral 00:00: TABLET(S) - Tablet 00 BY MOUTH Externa AT THE l ONSET OF MIGRAINE. MAY REPEAT AFTER TWO HOURS IF NEEDED. MAX OF TWO TABLETS PER DAY. Bilateral: 2022- No [id number] 80mg K elsey Methylpredn 10-03 Seybold isolone 21:30: 21:40 - Acetate 00 :00 Externa (Depo-Medro l l) [40 mg/ml] 80mg TOTAL - Physician Administere d ([id number]) Bilateral: 2022- No [id number] 80mg 80 mg, Mayra Methylpredn 10-03 Physician Se ybold isolone 21:30: 21:40 Administer - Acetate 00 :00 ed, ONCE, Externa (Depo-Medro 1 dose, On l l) [40 Mon mg/ml] 80mg 10/03/22 at TOTAL - 1630 Physician Administere d ([id number]) HYDROcodone Yes [id number] 2{tbl} Q.25D Take 2 Mayra -Acetaminop 3-24 tablets by Se ybold hen ([place]) 00:00: mouth - 10-325 MG 00 every 6 Externa oral Tablet hours as l needed for pain For chronic pain secondary to fibromyalg ia Sumatriptan Yes [id number] Take upon Mayra Succinate 3-10 onset of Seybol d 100 MG oral 00:00: migraine. - Tablet 00 May repeat Externa after 2 l hours. max dose is 200 per day. Topiramate 2022- No not Mayra 25 MG oral 08-10 defined Seybo ld CAPSULE 13:53: 00:00 - SPRINKLE 27 :00 Externa l Mirtazapine 2022- No 1/2-1 Inga ey 30 MG oral 08-10 tablet at Sey bold Tablet 13:52: 00:00 bedtime - 22 :00 Externa l Lurasidone 2022- No [id number] 120mg Take 120 Mayra HCl 120 MG 08-10 mg by Seybold oral Tablet 13:51: 00:00 mouth - 49 :00 daily Externa l busPIRone 2022-0 2022- No 1{tbl} Take 1 Matt sey HCl 10 MG 08-10 tablet by Seyb old oral Tablet 13:51: 00:00 mouth - 06 :00 Externa l Benztropine 2022-0 2022- No 1{tbl} Take 1 K elsey Mesylate 1 08-10 tablet by Sey bold MG oral 13:50: 00:00 mouth at - Tablet 57 :00 bedtime Externa l Sumatriptan Yes TAKE ONE Ke lsey Succinate 1-27 (1) Seybold 100 MG oral 00:00: TABLET(S) - Tablet 00 BY MOUTH Externa AT ONSET l OF HEADACHE. MAY REPEAT ONCE IN 2 HOURS NEEDED (MAX OF 2 TABLETS PER DAY). HYDROcodone Yes [id number] 2{tbl} Q.25D Take 2 Mayra -Acetaminop 1-24 tablets by Se missy candelaria ([employer]) 00:00: mouth - 10-325 MG 00 every 6 Externa oral Tablet hours as l needed for pain For chronic pain secondary to fibromyalg ia Lurasidone Yes [id number] 120mg Take 120 Mayra HCl 120 MG 1-10 mg by Seybold oral Tablet 10:50: mouth - 21 daily Externa l Benztropine Yes 1{tbl} Take 1 Ke lsey Mesylate 1 1-10 tablet by Seyb old MG oral 10:50: mouth at - Tablet 21 bedtime Externa l busPIRone Yes 1{tbl} Take 1 Inga ey HCl 10 MG 1-10 tablet by Seybo ld oral Tablet 10:50: mouth - 21 Externa l Mirtazapine Yes 1/2-1 Kelse y 30 MG oral 1-10 tablet at Seyb old Tablet 10:50: bedtime - 21 Externa l Topiramate Yes not Mayra 25 MG oral 1-10 defined Seybol d CAPSULE 10:50: - SPRINKLE 21 Externa l HYDROcodone 2021-07 Yes [id number] 2{tbl} Q.25D Take 2 Mayra -Acetaminop 2-21 tablets by Se missy candelaria ([employer]) 00:00: mouth - 10-325 MG 00 every 6 Externa oral Tablet hours as l needed for pain For chronic pain secondary to fibromyalg ia HYDROcodone 2021-07 Yes [id number] 2{tbl} Q.25D Take 2 Mayra -Acetaminop 2-21 tablets by Se missy candelaria ([employer]) 00:00: mouth - 10-325 MG 00 every 6 Externa oral Tablet hours as l needed for pain For chronic pain secondary to fibromyalg ia Sumatriptan 2021-07 Yes TAKE ONE Ke lsey Succinate 2-16 (1) Seybold 100 MG oral 00:00: TABLET(S) - Tablet 00 BY MOUTH Externa AT ONSET l OF HEADACHE. MAY REPEAT ONCE IN 2 HOURS NEEDED (MAX OF 2 TABS PER DAY). Methylpredn 2021-07- No [id number] 80mg Mayra isolone 2-14 12-14 Seybold Acetate 17:45: 17:42 - (Depo-Medro 00 :00 Externa l) [40 l mg/mL] 40mg TOTAL - Physician Administere d ([id number]) Methylpredn 2021-07- No [id number] 40mg Mayra isolone 2-14 12-14 Seybold Acetate 17:45: 18:44 - (Depo-Medro 00 :59 Externa l) [40 l mg/mL] 40mg TOTAL - Physician Administere d ([id number]) Methylpredn 2021-07- No [id number] 80mg 80 mg, Mayra isolone 2-14 12-14 Physician Seybol d Acetate 17:45: 17:42 Administer - (Depo-Medro 00 :00 ed, ONCE, Ext luna l) [40 1 dose, On l mg/mL] 40mg Wed TOTAL - 06/22/22 Physician at 1145 Administere d ([id number]) Lurasidone 2021-07 Yes [id number] 120mg Take 120 Mayra HCl 120 MG 2-14 mg by Seybold oral Tablet 11:24: mouth - 24 daily Externa l Benztropine 2021-07 Yes 1{tbl} Take 1 Ke lsey Mesylate 1 2-14 tablet by Seyb old MG oral 11:24: mouth at - Tablet 24 bedtime Externa l busPIRone 2021-07 Yes 1{tbl} Take 1 Inga ey HCl 10 MG 2-14 tablet by Seybo ld oral Tablet 11:24: mouth - 24 Externa l Mirtazapine 2021-07 Yes 1/2-1 Kelse y 30 MG oral 2-14 tablet at Seyb old Tablet 11:24: bedtime - 24 Externa l Topiramate 2021-07 Yes not Mayra 25 MG oral 2-14 defined Seybol d CAPSULE 11:24: - SPRINKLE 24 Externa l Lurasidone 2021-07 Yes [id number] 120mg Take 120 Mayra HCl 120 MG 2-02 mg by Seybold oral Tablet 11:04: mouth - 24 daily Externa l Benztropine 2021-07 Yes 1{tbl} Take 1 Ke lsey Mesylate 1 2-02 tablet by Seyb old MG oral 11:04: mouth at - Tablet 24 bedtime Externa l busPIRone 2021-07 Yes 1{tbl} Take 1 Inga ey HCl 10 MG 2-02 tablet by Seybo ld oral Tablet 11:04: mouth - 24 Externa l Mirtazapine 2021-07 Yes 1/2-1 Kelse y 30 MG oral 2-02 tablet at Seyb old Tablet 11:04: bedtime - 24 Externa l Topiramate 2021-07 Yes not Mayra 25 MG oral 2-02 defined Seybol d CAPSULE 11:04: - SPRINKLE 24 Externa l HYDROcodone 2021-07 Yes [id number] 2{tbl} Q.25D Take 2 Mayra -Acetaminop 1-23 tablets by Se missy candelaria ([employer]) 00:00: mouth - 10-325 MG 00 every 6 Externa oral Tablet hours as l needed for pain For chronic pain secondary to fibromyalg ia HYDROcodone 2021-07- No [id number] 2{tbl} Q.25D Take 2 Mayra -Acetaminop 1-23 12-14 tablets by Belgica candelaria ([employer]) 00:00: 00:00 mouth - 10-325 MG 00 :00 every 6 Externa oral Tablet hours as l needed for pain For chronic pain secondary to fibromyalg ia Latuda 20 2021-07 Yes TAKE ONE Inga ey MG oral 1-19 (1) Seybold Tablet 00:00: TABLET(S) - 00 BY MOUTH Externa ONCE A DAY l IN THE EVENING WITH FOOD. [facility] 2021-07 Yes TAKE ONE Inga ey MG oral 1-19 (1) Seybold Tablet 00:00: TABLET(S) - 00 BY MOUTH Externa ONCE A DAY l IN THE EVENING WITH FOOD. [facility] 2021-07 Yes TAKE ONE Inga ey MG oral 1-19 (1) Seybold Tablet 00:00: TABLET(S) - 00 BY MOUTH Externa ONCE A DAY l IN THE EVENING WITH FOOD. [facility] 2021-07 Yes TAKE ONE Inga ey MG oral 1-19 (1) Seybold Tablet 00:00: TABLET(S) - 00 BY MOUTH Externa ONCE A DAY l IN THE EVENING WITH FOOD. [facility] 2021-07 Yes TAKE ONE Inga ey MG oral 1-19 (1) Seybold Tablet 00:00: TABLET(S) - 00 BY MOUTH Externa ONCE A DAY l IN THE EVENING WITH FOOD. [facility] 2021-07 Yes TAKE ONE Inga ey MG oral 1-19 (1) Seybold Tablet 00:00: TABLET(S) - 00 BY MOUTH Externa ONCE A DAY l IN THE EVENING WITH FOOD. [facility] 2021-07 Yes TAKE ONE Inga ey MG oral 1-19 (1) Seybold Tablet 00:00: TABLET(S) - 00 BY MOUTH Externa ONCE A DAY l IN THE EVENING WITH FOOD. [facility] 2021-07 Yes TAKE ONE Inga ey MG oral 1-19 (1) Seybold Tablet 00:00: TABLET(S) - 00 BY MOUTH Externa ONCE A DAY l IN THE EVENING WITH FOOD. [facility] 2021-07 Yes TAKE ONE Inga ey MG oral 1-19 (1) Seybold Tablet 00:00: TABLET(S) - 00 BY MOUTH Externa ONCE A DAY l IN THE EVENING WITH FOOD. Lurasidone 2021-07 Yes [id number] 120mg Take 120 Mayra HCl 120 MG 1-15 mg by Seybold oral Tablet 08:58: mouth - 57 daily Externa l Benztropine 2021-07 Yes 1{tbl} Take 1 Ke lsey Mesylate 1 1-15 tablet by Seyb old MG oral 08:58: mouth at - Tablet 57 bedtime Externa l busPIRone 2021-07 Yes 1{tbl} Take 1 Inga ey HCl 10 MG 1-15 tablet by Seybo ld oral Tablet 08:58: mouth - 57 Externa l Mirtazapine 2021-07 Yes 1/2-1 Kelse y 30 MG oral 1-15 tablet at Seyb old Tablet 08:58: bedtime - 57 Externa l Topiramate 2021-07 Yes not Mayra 25 MG oral 1-15 defined Seybol d CAPSULE 08:58: - SPRINKLE 57 Externa l HYDROcodone 2021-07 Yes 2{tbl} Q.25D Take 2 Mayra -Acetaminop 0-27 tablets by Se ybold hen ([employer]) 00:00: mouth - 10-325 MG 00 every 6 Externa oral Tablet hours as l needed for pain For chronic pain secondary to fibromyalg ia Lurasidone 2021-07 Yes [id number] 120mg Take 120 Mayra HCl 120 MG 0-10 mg by Seybold oral Tablet 13:49: mouth - 55 daily Externa l Benztropine 2021-07 Yes 1{tbl} Take 1 Ke lsey Mesylate 1 0-10 tablet by Seyb old MG oral 13:49: mouth at - Tablet 55 bedtime Externa l busPIRone 2021-07 Yes 1{tbl} Take 1 Inga ey HCl 10 MG 0-10 tablet by Seybo ld oral Tablet 13:49: mouth - 55 Externa l Mirtazapine 2021-07 Yes 2-1 Kelse y 30 MG oral 0-10 tablet at Seyb old Tablet 13:49: bedtime - 55 Externa l Topiramate 2021-07 Yes not Mayra 25 MG oral 0-10 defined Seybol d CAPSULE 13:49: - SPRINKLE 55 Externa l HYDROcodone Yes 2{tbl} Q.25D Take 2 Mayra -Acetaminop 9-29 tablets by Se ybold hen ([employer]) 00:00: mouth - 10-325 MG 00 every 6 Externa oral Tablet hours as l needed for pain For chronic pain secondary to fibromyalg ia Mupirocin Yes Mayra (BACTROBAN) 8-30 Seybold 2 % apply 00:00: - externally 00 Externa Ointment l Mupirocin 2021-0 Yes Mayra (BACTROBAN) 8-30 Seybold 2 % apply 00:00: - externally 00 Externa Ointment l Mupirocin 2021-0 Yes Mayra (BACTROBAN) 8-30 Seybold 2 % apply 00:00: - externally 00 Externa Ointment l Mupirocin 2-0 Yes Mayra (BACTROBAN) 8-30 Seybold 2 % apply 00:00: - externally 00 Externa Ointment l Mupirocin 2021-0 Yes Mayra (BACTROBAN) 8-30 Seybold 2 % apply 00:00: - externally 00 Externa Ointment l Mupirocin 2021-0 2023- No Mayra (BACTROBAN) 830 02- Seybold 2 % apply 00:00: 00:00 - externally 00 :00 Externa Ointment l Quetiapine 2021-0 Yes 50mg Take 50 mg K elsey Fumarate 50 8-15 by mouth Seyb old MG oral 00:00: daily at - Tablet 00 bedtime Externa l Quetiapine 2021-0 Yes 50mg Take 1 Kelse y Fumarate 50 8-15 tablet (50 Se ybold MG oral 00:00: mg total) - Tablet 00 by mouth Externa daily at l bedtime Quetiapine 2021-0 Yes 50mg Take 1 Kelse y Fumarate 50 8-15 tablet (50 Se ybold MG oral 00:00: mg total) - Tablet 00 by mouth Externa daily at l bedtime. Quetiapine 2021-0 Yes 50mg Take 1 Kelse y Fumarate 50 8-15 tablet (50 Se ybold MG oral 00:00: mg total) - Tablet 00 by mouth Externa daily at l bedtime. Quetiapine 2-0 Yes 50mg Take 1 Kelse y Fumarate 50 8-15 tablet (50 Se ybold MG oral 00:00: mg total) - Tablet 00 by mouth Externa daily at l bedtime. Quetiapine 2-0 Yes 50mg Take 50 mg K elsey Fumarate 50 8-15 by mouth Seyb old MG oral 00:00: daily at - Tablet 00 bedtime Externa l Quetiapine 2022-0 Yes 50mg Take 50 mg K elsey Fumarate 50 8-15 by mouth Seyb old MG oral 00:00: daily at - Tablet 00 bedtime Externa l Quetiapine 0 Yes 50mg Take 50 mg K elsey Fumarate 50 8-15 by mouth Seyb old MG oral 00:00: daily at - Tablet 00 bedtime Externa l Quetiapine 0 Yes 50mg Take 50 mg K elsey Fumarate 50 8-15 by mouth Seyb old MG oral 00:00: daily at - Tablet 00 bedtime Externa l Quetiapine Yes 50mg Take 50 mg K elsey Fumarate 50 8-15 by mouth Seyb old MG oral 00:00: daily at - Tablet 00 bedtime Externa l Quetiapine Yes 50mg Take 50 mg K elsey Fumarate 50 8-15 by mouth Seyb old MG oral 00:00: daily at - Tablet 00 bedtime Externa l Pantoprazol Yes 40mg 40 mg Kelse y e Sodium 40 8-01 Seybold MG oral 00:00: - Tablet 00 Externa Delayed l Response Pantoprazol 0 Yes 40mg 40 mg Kelse y e Sodium 40 8-01 Seybold MG oral 00:00: - Tablet 00 Externa Delayed l Response Pantoprazol 0 Yes 40mg 40 mg Kelse y e Sodium 40 8-01 Seybold MG oral 00:00: - Tablet 00 Externa Delayed l Response Pantoprazol 0 Yes 40mg 40 mg Kelse y e Sodium 40 8-01 Seybold MG oral 00:00: - Tablet 00 Externa Delayed l Response Pantoprazol 0 2022- No 40mg 40 mg Inga ey e Sodium 40 8-01 02-01 Seybold MG oral 00:00: 00:00 - Tablet 00 :00 Externa Delayed l Response Meloxicam 2021-0 2021- No [id number] TAKE ONE Mayra 7.5 MG oral 7-13 04-18 91 (1) Seybold Tablet 00:00: 00:00 TABLET(S) - 00 :00 BY MOUTH Externa ONCE A l DAY. Sumatriptan Yes TAKE ONE Ke lsey Succinate 6-07 (1) Seybold 100 MG oral 00:00: TABLET(S) - Tablet 00 BY MOUTH Externa AT ONSET l OF HEADACHE. MAY REPEAT ONCE IN 2 HOURS NEEDED (MAX OF 2 TABS PER DAY). Rizatriptan 2021-0 Yes TAKE ONE Ke lsey Benzoate 10 6-07 (1) Seybold MG oral 00:00: TABLET(S) - Tablet 00 BY MOUTH Externa AT ONSET l OF HEADACHE. MAY REPEAT ONCE IN 2 HOURS NEEDED. (MAX 2 TABLETS PER DAY). Sumatriptan 0 Yes TAKE ONE Ke lsey Succinate 6-07 (1) Seybold 100 MG oral 00:00: TABLET(S) - Tablet 00 BY MOUTH Externa AT ONSET l OF HEADACHE. MAY REPEAT ONCE IN 2 HOURS NEEDED (MAX OF 2 TABS PER DAY). Rizatriptan 0 Yes TAKE ONE Ke lsey Benzoate 10 6-07 (1) Seybold MG oral 00:00: TABLET(S) - Tablet 00 BY MOUTH Externa AT ONSET l OF HEADACHE. MAY REPEAT ONCE IN 2 HOURS NEEDED. (MAX 2 TABLETS PER DAY). Sumatriptan 0 Yes TAKE ONE Ke lsey Succinate 6-07 (1) Seybold 100 MG oral 00:00: TABLET(S) - Tablet 00 BY MOUTH Externa AT ONSET l OF HEADACHE. MAY REPEAT ONCE IN 2 HOURS NEEDED (MAX OF 2 TABS PER DAY). Rizatriptan 0 Yes TAKE ONE Ke lsey Benzoate 10 6-07 (1) Seybold MG oral 00:00: TABLET(S) - Tablet 00 BY MOUTH Externa AT ONSET l OF HEADACHE. MAY REPEAT ONCE IN 2 HOURS NEEDED. (MAX 2 TABLETS PER DAY). Sumatriptan 0 Yes TAKE ONE Ke lsey Succinate 6-07 (1) Seybold 100 MG oral 00:00: TABLET(S) - Tablet 00 BY MOUTH Externa AT ONSET l OF HEADACHE. MAY REPEAT ONCE IN 2 HOURS NEEDED (MAX OF 2 TABS PER DAY). Rizatriptan 2021-0 Yes TAKE ONE Ke lsey Benzoate 10 6-07 (1) Seybold MG oral 00:00: TABLET(S) - Tablet 00 BY MOUTH Externa AT ONSET l OF HEADACHE. MAY REPEAT ONCE IN 2 HOURS NEEDED. (MAX 2 TABLETS PER DAY). Triamcinolo 2021- No [id number] 40mg Mayra ne 12-10 Seybold Acetonide 17:15: 17:19 (Kenalog) 00 :00 [40 mg/mL] 40mg TOTAL - Physician Administere d ([id number]) Triamcinolo 2021- No [id number] 40mg 40 mg, Mayra ne 12-10 Physician [...] Take 1 Matt sey HCl 150 MG 6-09 12-03 tablet by Sey bold oral Tablet 11:53: 00:00 mouth at 09 :00 bedtime as needed Trazodone 2021-0 2021- No 1-3 Mayra HCl 50 MG 6- 06-03 tablets at Sey bold oral Tablet 11:53: 00:00 bedtime as 09 :00 needed Lurasidone 2021- Yes [id number] 120mg Take 120 Mayra HCl 120 MG 6-03 mg by Seybold oral Tablet 11:43: mouth 38 daily Benztropine 2021-0 Yes 1{tbl} Take 1 Ke lsey Mesylate 1 6-03 tablet by Seyb old MG oral 11:43: mouth at Tablet 38 bedtime busPIRone 2021-0 Yes 1{tbl} Take 1 Inga ey HCl 10 MG 6-03 tablet by Seybo ld oral Tablet 11:43: mouth 38 Mirtazapine 2021-0 Yes 1/2-1 Kelse y 30 MG oral 6-03 tablet at Seyb old Tablet 11:43: bedtime 38 Topiramate Yes not Mayra 25 MG oral 6-03 defined Seybol d CAPSULE 11:43: SPRINKLE 38 Pantoprazol Yes [id number] 40mg Take 1 Mayra e Sodium 40 5-26 tablet (40 Se ybold MG oral 00:00: mg total) Tablet 00 by mouth Delayed in the Response morning and 1 tablet (40 mg total) in the evening. Pantoprazol 2- No [id number] 40mg Take 1 Mayra e Sodium 40 5-26 10-10 tablet (40 S eybold MG oral 00:00: 00:00 mg total) - Tablet 00 :00 by mouth Externa Delayed in the l Response morning and 1 tablet (40 mg total) in the evening. Meloxicam Yes [id number] TAKE ONE Mayra 7.5 MG oral 5-18 9107 (1) Seybold Tablet 00:00: TABLET(S) 00 BY MOUTH ONCE A DAY. Lurasidone Yes [id number] 120mg Take 120 Mayra HCl 120 MG [...] mouth 1.3 % 39 vaginal Gel Mirtazapine 0 Yes 1/2-1 Kelse y 30 MG oral 5-12 tablet at Seyb old Tablet 13:58: bedtime 39 Topiramate 0 Yes not Mayra 25 MG oral 5-12 defined Seybol d CAPSULE 13:58: SPRINKLE 39 Trazodone 2022-0 Yes 1{tbl} Take 1 Inga ey HCl 150 MG 5-12 tablet by Seyb old oral Tablet 13:58: mouth at 39 bedtime as needed Trazodone Yes 1-3 Mayra HCl 50 MG 5-12 tablets at Seyb old oral Tablet 13:58: bedtime as 39 needed Sucralfate 0 Yes [id number] 1g Take 1 K elsey 1 g oral 5-12 tablet (1 Seybol d Tablet 00:00: g total) 00 by mouth 4 times daily Sucralfate Yes [id number] 1g Take 1 K elsey 1 g oral 5-12 tablet (1 Seybol d Tablet 00:00: g total) 00 by mouth 4 times daily Sucralfate 2021- No [id number] 1g Take 1 Mayra 1 g oral 5-12 10-10 tablet (1 Seybo ld Tablet 00:00: 00:00 g total) - 00 :00 by mouth 4 Externa times l daily HYDROcodone Yes [id number] 2{tbl} Q.25D Take 2 Mayra -Acetaminop 5-09 tablets by Se Arterisold hen ([employer]) 00:00: mouth 10-325 MG 00 every 6 oral Tablet hours as needed for pain For chronic pain secondary to fibromyalg ia HYDROcodone Yes [id number] 2{tbl} Q.25D Take 2 Mayra -Acetaminop 5-09 tablets by Se Arterisold hen ([employer]) 00:00: mouth 10-325 MG 00 every 6 oral Tablet hours as needed for pain For chronic pain secondary to fibromyalg ia PANTOPRAZOL 2021- No 1{tbl} Take 1 K elsey E SODIUM OR 5-05 05-05 tablet by Se ybold 10:55: 00:00 mouth 26 :00 Pantoprazol 2021-0 Yes [id number] 40mg Take 1 Mayra e Sodium 40 5-05 tablet (40 Se ybold MG oral 00:00: mg total) Tablet 00 by mouth Delayed daily Response Pantoprazol 2021-0 Yes [id number] 40mg Take 1 Mayra e Sodium 40 5-05 tablet (40 Se ybold MG oral 00:00: mg total) Tablet 00 by mouth Delayed daily Response Sumatriptan Yes Tali 1 tablet Memoria Succinate 4-28 Marek at least 2 l 02:45: hours Jay 30 between doses as needed Hydrocodone 0 Yes Tali 2 tablets Memoria -Acetaminop 4-28 Marek as needed l hen 02:45: 30 HydrOXYzine 0 Yes Tali 1 tablet Memoria HCl 4-28 Marek as needed l 02:45: 30 Latuda 0 Yes Tali 1 tablet Shekhar clarice 4-28 Marek with food l 02:45: 30 Seroquel 0 Yes Tali 1 tablet Me moria 4-28 Marek l 02:45: 30 Tizanidine 0 Yes Tali 2 tablets Memoria HCl 4-28 Marek at bedtime l 02:45: 30 Rizatriptan 0 Yes Tali 1 tablet Memoria Benzoate 4-28 Marek l 02:45: Sumatriptan Yes Tali 1 tablet Memoria Succinate 4-28 Marek at least 2 l 02:45: hours Jay 30 between doses as needed Hydrocodone 0 Yes Tali 2 tablets Memoria -Acetaminop 4-28 Marek as needed l hen 02:45: 30 HydrOXYzine 0 Yes Tali 1 tablet Memoria HCl 4-28 Marek as needed l 02:45: 30 Latuda 0 Yes Tali 1 tablet Shekhar clarice 4-28 Marek with food l 02:45: 30 Seroquel 0 Yes Tali 1 tablet Me moria 4-28 Marek l 02:45: 30 Tizanidine 0 Yes Tali 2 tablets Memoria HCl 4-28 Marek at bedtime l 02:45: 30 Rizatriptan 0 Yes Tali 1 tablet Memoria Benzoate 4-28 Marek l 02:45: 30 Sumatriptan 0 Yes Tali 1 tablet Memoria Succinate 4-28 Marek at least 2 l 02:45: hours Félix 30 between doses as needed Hydrocodone 0 Yes Tali 2 tablets Memoria -Acetaminop 4-28 Marek as needed l hen 02:45: 30 HydrOXYzine 0 Yes Tali 1 tablet Memoria HCl 4-28 Marek as needed l 02:45: Jay 30 Latuda 0 Yes Tali 1 tablet Shekhar clarice 4-28 Marek with food l 02:45: Jay 30 Seroquel 0 Yes Tali 1 tablet Me moria 4-28 Marek l 02:45: Jay 30 Tizanidine 0 Yes Tali 2 tablets Memoria HCl 4-28 Marek at bedtime l 02:45: 30 Rizatriptan 0 Yes Tali 1 tablet Memoria Benzoate 4-28 Marek l 02:45: Félix 30 Sumatriptan 0 Yes Tali 1 tablet Memoria Succinate 4-28 Marek at least 2 l 02:45: hours Jay 30 between doses as needed Hydrocodone 0 Yes Tali 2 tablets Memoria -Acetaminop 4-28 Marek as needed l hen 02:45: Félix 30 HydrOXYzine 0 Yes Tali 1 tablet Memoria HCl 4-28 Marek as needed l 02:45: Latuda 0 Yes Tali 1 tablet Shekhar clarice 4-28 Marek with food l 02:45: 30 Seroquel 0 Yes Tali 1 tablet Me moria 4-28 Marek l 02:45: 30 Tizanidine 0 Yes Tali 2 tablets Memoria HCl 4-28 Marek at bedtime l 02:45: 30 Rizatriptan 0 Yes Tali 1 tablet Memoria Benzoate 4-28 Marek l 02:45: 30 Sumatriptan 0 Yes Tali 1 tablet Memoria Succinate 4-28 Marek at least 2 l 02:45: hours Jay 30 between doses as needed Hydrocodone 0 Yes Tali 2 tablets Memoria -Acetaminop 4-28 Marek as needed l hen 02:45: 30 HydrOXYzine 0 Yes Tali 1 tablet Memoria HCl 4-28 Marek as needed l 02:45: Félix 30 Latuda 0 Yes Tali 1 tablet Shekhar clarice 4-28 Marek with food l 02:45: Félix 30 Seroquel 0 Yes Tali 1 tablet Me moria 4-28 Marek l 02:45: Jay 30 Tizanidine 0 Yes Tali 2 tablets Memoria HCl 4-28 Marek at bedtime l 02:45: Félix 30 Rizatriptan 2021-0 Yes Tali 1 tablet Memoria Benzoate 4-28 Marek l 02:45: Félix 30 Sumatriptan 0 Yes Tali 1 tablet Memoria Succinate 4-28 Marek at least 2 l 02:45: hours Jay 30 between doses as needed Hydrocodone 0 Yes Tali 2 tablets Memoria -Acetaminop 4-28 Marek as needed l hen 02:45: Félix 30 HydrOXYzine 0 Yes Tali 1 tablet Memoria HCl 4-28 Marek as needed l 02:45: Jay 30 Latuda 0 Yes Tali 1 tablet Shekhar clarice 4-28 Marek with food l 02:45: 30 Seroquel 0 Yes Tali 1 tablet Me moria 4-28 Marek l 02:45: Jay 30 Tizanidine 0 Yes Tali 2 tablets Memoria HCl 4-28 Marek at bedtime l 02:45: 30 Rizatriptan 0 Yes Tali 1 tablet Memoria Benzoate 4-28 Marek l 02:45: 30 Sumatriptan 0 Yes Tali 1 tablet Memoria Succinate 4-28 Marek at least 2 l 02:45: hours Jay 30 between doses as needed Hydrocodone 0 Yes Tali 2 tablets Memoria -Acetaminop 4-28 Marek as needed l hen 02:45: 30 HydrOXYzine 0 Yes Tali 1 tablet Memoria HCl 4-28 Marek as needed l 02:45: 30 Latuda 0 Yes Tali 1 tablet Shekhar clarice 4-28 Marek with food l 02:45: Jay 30 Seroquel 0 Yes Tali 1 tablet Me moria 4-28 Marek l 02:45: Jay 30 Tizanidine 2021-0 Yes Tali 2 tablets Memoria HCl 4-28 Marek at bedtime l 02:45: Jay 30 Rizatriptan 0 Yes Tali 1 tablet Memoria Benzoate 4-28 Marek l 02:45: Félix 30 Sumatriptan Yes Tali 1 tablet Memoria Succinate 4-28 Marek at least 2 l 02:45: hours Félix 30 between doses as needed Hydrocodone 0 Yes Tali 2 tablets Memoria -Acetaminop 4-28 Marek as needed l hen 02:45: 30 HydrOXYzine 0 Yes Tali 1 tablet Memoria HCl 4-28 Marek as needed l 02:45: Latuda 0 Yes Tali 1 tablet Shekhar clarice 4-28 Marek with food l 02:45: 30 Seroquel 0 Yes Tali 1 tablet Me moria 4-28 Marek l 02:45: 30 Tizanidine 0 Yes Tali 2 tablets Memoria HCl 4-28 Marek at bedtime l 02:45: Rizatriptan 0 Yes Tali 1 tablet Memoria Benzoate 4-28 Marek l 02:45: Sumatriptan 0 Yes Tali 1 tablet Memoria Succinate 4-28 Marek at least 2 l 02:45: hours Félix 30 between doses as needed Hydrocodone 0 Yes Tali 2 tablets Memoria -Acetaminop 4-28 Marek as needed l hen 02:45: HydrOXYzine 0 Yes Tali 1 tablet Memoria HCl 4-28 Marek as needed l 02:45: Latuda 0 Yes Tali 1 tablet Shekhar clarice 4-28 Marek with food l 02:45: Seroquel 0 Yes Tali 1 tablet Me moria 4-28 Marek l 02:45: 30 Tizanidine 0 Yes Tali 2 tablets Memoria HCl 4-28 Marek at bedtime l 02:45: 30 Rizatriptan 0 Yes Tali 1 tablet Memoria Benzoate 4-28 Marek l 02:45: 30 Sumatriptan 0 Yes Tali 1 tablet Memoria Succinate 4-28 Marek at least 2 l 02:45: hours Félix 30 between doses as needed Hydrocodone 0 Yes Tali 2 tablets Memoria -Acetaminop 4-28 Marek as needed l hen 02:45: 30 HydrOXYzine 0 Yes Tali 1 tablet Memoria HCl 4-28 Marek as needed l 02:45: Félix 30 Latuda 0 Yes Tali 1 tablet Shekhar clarice 4-28 Marek with food l 02:45: Félix 30 Seroquel 0 Yes Tali 1 tablet Me moria 4-28 Marek l 02:45: Jay 30 Tizanidine 0 Yes Tali 2 tablets Memoria HCl 4-28 Marek at bedtime l 02:45: Félix 30 Rizatriptan 0 Yes Tali 1 tablet Memoria Benzoate 4-28 Marek l 02:45: Félix 30 Sumatriptan 0 Yes Tali 1 tablet Memoria Succinate 4-28 Marek at least 2 l 02:45: hours Félix 30 between doses as needed Hydrocodone 0 Yes Tali 2 tablets Memoria -Acetaminop 4-28 Marek as needed l hen 02:45: Jay 30 HydrOXYzine 0 Yes Tali 1 tablet Memoria HCl 4-28 Marek as needed l 02:45: 30 Latuda 0 Yes Tali 1 tablet Shekhar clarice 4-28 Marek with food l 02:45: Jay 30 Seroquel 0 Yes Tali 1 tablet Me moria 4-28 Marek l 02:45: Félix 30 Tizanidine 0 Yes Tali 2 tablets Memoria HCl 4-28 Marek at bedtime l 02:45: Félix 30 Rizatriptan 0 Yes Tali 1 tablet Memoria Benzoate 4-28 Marek l 02:45: Jay 30 Sumatriptan 0 Yes Tali 1 tablet Memoria Succinate 4-28 Marek at least 2 l 02:45: hours Jay 30 between doses as needed Hydrocodone 0 Yes Tali 2 tablets Memoria -Acetaminop 4-28 Marek as needed l hen 02:45: Jay 30 HydrOXYzine 0 Yes Tali 1 tablet Memoria HCl 4-28 Marek as needed l 02:45: Félix 30 Latuda 0 Yes Tali 1 tablet Shekhar clarice 4-28 Marek with food l 02:45: Jay 30 Seroquel 0 Yes Tali 1 tablet Me moria 4-28 Marek l 02:45: Félix 30 Tizanidine 2021-0 Yes Tali 2 tablets Memoria HCl 4-28 Marek at bedtime l 02:45: 30 Rizatriptan 2021-0 Yes Tali 1 tablet Memoria Benzoate 4-28 Marek l 02:45: Félix 30 Sumatriptan 2021-0 Yes Tali 1 tablet Memoria Succinate 4-28 Marek at least 2 l 02:45: hours Jay 30 between doses as needed Hydrocodone 2021-0 Yes Tali 2 tablets Memoria -Acetaminop 4-28 Marek as needed l hen 02:45: Jay 30 HydrOXYzine 0 Yes Tali 1 tablet Memoria HCl 4-28 Marek as needed l 02:45: Latuda 0 Yes Tali 1 tablet Shekhar clarice 4-28 Marek with food l 02:45: Seroquel 0 Yes Tali 1 tablet Me moria 4-28 Marek l 02:45: Tizanidine 0 Yes Tali 2 tablets Memoria HCl 4-28 Marek at bedtime l 02:45: Rizatriptan 2021-0 Yes Tali 1 tablet Memoria Benzoate 4-28 Marek l 02:45: 30 Sumatriptan 2021-0 Yes Tali 1 tablet Memoria Succinate 4-28 Marek at least 2 l 02:45: hours Félix 30 between doses as needed Hydrocodone 2021-0 Yes Tali 2 tablets Memoria -Acetaminop 4-28 Marek as needed l hen 02:45: 30 HydrOXYzine 0 Yes Tali 1 tablet Memoria HCl 4-28 Marek as needed l 02:45: Latuda 0 Yes Tali 1 tablet Shekhar clarice 4-28 Marek with food l 02:45: 30 Seroquel 0 Yes Tali 1 tablet Me moria 4-28 Marek l 02:45: 30 Tizanidine 2021-0 Yes Tali 2 tablets Memoria HCl 4-28 Marek at bedtime l 02:45: 30 Rizatriptan 2021-0 Yes Tali 1 tablet Memoria Benzoate 4-28 Marek l 02:45: Jay 30 Sumatriptan 2022-0 Yes Tali 1 tablet Memoria Succinate 4-28 Marek at least 2 l 02:45: hours Jay 30 between doses as needed Hydrocodone 0 Yes Tali 2 tablets Memoria -Acetaminop 4-28 Marek as needed l hen 02:45: Félix 30 HydrOXYzine 0 Yes Tali 1 tablet Memoria HCl 4-28 Marek as needed l 02:45: Félix 30 Latuda 0 Yes Tali 1 tablet Shekhar clarice 4-28 Marek with food l 02:45: Félix 30 Seroquel 0 Yes Tali 1 tablet Me moria 4-28 Marek l 02:45: Jay 30 Tizanidine 0 Yes Tali 2 tablets Memoria HCl 4-28 Marek at bedtime l 02:45: Félix 30 Rizatriptan 0 Yes Tali 1 tablet Memoria Benzoate 4-28 Marek l 02:45: Jay 30 Sumatriptan Yes Tali 1 tablet Memoria Succinate 4-28 Marek at least 2 l 02:45: hours Jay 30 between doses as needed Hydrocodone 0 Yes Tali 2 tablets Memoria -Acetaminop 4-28 Marek as needed l hen 02:45: Jay 30 HydrOXYzine 0 Yes Tali 1 tablet Memoria HCl 4-28 Marek as needed l 02:45: Félix 30 Latuda 0 Yes Tali 1 tablet Shekhar clarice 4-28 Marek with food l 02:45: 30 Seroquel 0 Yes Tali 1 tablet Me moria 4-28 Marek l 02:45: Félix 30 Tizanidine 0 Yes Tali 2 tablets Memoria HCl 4-28 Marek at bedtime l 02:45: Jay 30 Rizatriptan 0 Yes Tali 1 tablet Memoria Benzoate 4-28 Marek l 02:45: Jay 30 Lurasidone Yes [id number] 120mg Take 120 Mayra HCl 120 MG 4-19 mg by Seybold oral Tablet 10:59: mouth 06 daily PANTOPRAZOL 0 Yes 1{tbl} Take 1 Ke lsey E SODIUM OR 4-19 tablet by Walker vargas 10:59: mouth 06 Benztropine 2022-0 Yes 1{tbl} Take 1 Ke lsey Mesylate 1 4-19 tablet by Seyb old MG oral 10:59: mouth at Tablet 06 bedtime busPIRone 2-0 Yes 1{tbl} Take 1 Inga ey HCl 15 MG 4-19 tablet by Seybo ld oral Tablet 10:59: mouth 06 busPIRone 2022-0 Yes 1{tbl} Take 1 Inga ey HCl 10 MG 4-19 tablet by Seybo ld oral Tablet 10:59: mouth 06 metroNIDAZO 2021-0 Yes 1{tbl} Take 1 Ke lsey LE 4-19 tablet by Seybold ([facility]) 10:59: mouth 1.3 % 06 vaginal Gel [...] bedtime as 06 needed Lurasidone 2-0 Yes [id number] 120mg Take 120 Mayra HCl 120 MG 4-19 mg by Seybold oral Tablet 10:59: mouth 06 daily Benztropine 2021-0 Yes 1{tbl} Take 1 Ke lsey Mesylate 1 4-19 tablet by Seyb old MG oral 10:59: mouth at Tablet 06 bedtime busPIRone 2-0 Yes 1{tbl} Take 1 Inga [...] mouth 1.3 % 06 vaginal Gel Mirtazapine Yes 1/2-1 Kelse y [...] 10:59: bedtime as 06 needed Erenumab-ao Yes [id number] 140mg Inject 1 Mayra oe 4-19 9105 mL (140 mg Seybold ([facility]) 00:00: total) 140 MG/ML 00 into the subcutaneou skin once s Solution a month Auto-inject or injection Erenumab-ao Yes [id number] 140mg Inject 1 Mayra oe 4-19 9105 mL (140 mg Seybold ([employer]) 00:00: total) 140 MG/ML 00 into the subcutaneou skin once s Solution a month Auto-inject or injection Erenumab-ao Yes [id number] 140mg Inject 1 Mayra oe 4-19 9105 mL (140 mg Seybold ([employer]) 00:00: total) 140 MG/ML 00 into the subcutaneou skin once s Solution a month Auto-inject or injection Erenumab-ao 2021- No [id number] 140mg Inject 1 Mayra oe 4-19 06-03 [...] (MAX OF 2 TABS PER DAY). HYDROcodone 2022-0 Yes 2{tbl} Q.25D Take 2 Mayra -Acetaminop 4-11 tablets by Se ybold hen ([place]) 00:00: mouth 10-325 MG 00 every 6 [...] -Acetaminop 4-11 tablets by Se ybold hen ([place]) 00:00: mouth 10-325 MG 00 every 6 [...] 2 TABS PER DAY). Meloxicam 2021-0 Yes [id number] TAKE ONE Mayra 7.5 MG oral 3-21 9107 (1) Seybold Tablet 00:00: TABLET(S) 00 BY MOUTH ONCE A DAY. Meloxicam 2021-0 Yes [id number] TAKE ONE Mayra 7.5 MG oral 3-21 9107 (1) Seybold Tablet 00:00: TABLET(S) 00 BY MOUTH ONCE A DAY. Meloxicam 2022-0 Yes [id number] TAKE ONE Mayra 7.5 MG oral 3-21 9107 (1) Seybold Tablet 00:00: TABLET(S) 00 BY MOUTH ONCE A DAY. Oxybutynin Yes TAKE ONE Matt sey Chloride 10 3-20 (1) Seybold MG oral 00:00: TABLET(S) TABLET SR 00 BY MOUTH 24 HR ONCE A DAY. Oxybutynin 2-0 Yes TAKE ONE Matt sey Chloride 10 3-20 (1) Seybold MG oral 00:00: TABLET(S) TABLET SR 00 BY MOUTH 24 HR ONCE A DAY. Oxybutynin 2-0 Yes TAKE ONE Matt sey Chloride 10 3-20 (1) Seybold MG oral 00:00: TABLET(S) TABLET SR 00 BY MOUTH 24 HR ONCE A DAY. Oxybutynin 2-0 Yes TAKE ONE Matt sey Chloride 10 3-20 (1) Seybold MG oral 00:00: TABLET(S) TABLET SR 00 BY MOUTH 24 HR ONCE A DAY. Oxybutynin 2-0 Yes TAKE ONE Matt sey Chloride 10 3-20 (1) Seybold MG oral 00:00: TABLET(S) - TABLET SR 00 BY MOUTH Interactive Developer a 24 HR ONCE A l DAY. Oxybutynin 2-0 Yes TAKE ONE Matt sey Chloride 10 3-20 (1) Seybold MG oral 00:00: TABLET(S) - TABLET SR 00 BY MOUTH Interactive Developer a 24 HR ONCE A l DAY. Oxybutynin 2021-0 Yes TAKE ONE Matt sey Chloride 10 3-20 (1) [facility] oral 00:00: TABLET(S) - TABLET SR 00 BY MOUTH Interactive Developer a 24 HR ONCE A l DAY. Oxybutynin 2-0 Yes TAKE ONE Matt sey Chloride 10 3-20 (1) [facility] oral 00:00: TABLET(S) - TABLET SR 00 BY MOUTH Interactive Developer a 24 HR ONCE A l DAY. Oxybutynin 2021-0 Yes TAKE ONE Matt sey Chloride 10 3-20 (1) [facility] oral 00:00: TABLET(S) - TABLET SR 00 BY MOUTH Interactive Developer a 24 HR ONCE A l DAY. Oxybutynin 2-0 3- No TAKE ONE Ke lsey Chloride 10 3-20 02-01 (1) [facility] oral 00:00: 00:00 TABLET(S) - TABLET SR 00 :00 BY MOUTH Interactive Developer a 24 HR ONCE A l DAY. Rizatriptan 2-0 Yes TAKE ONE Ke lsey Benzoate 10 [...] NEEDED. (MAX 2 TABLETS PER DAY). Pantoprazol 0 Yes Tali 1 tablet Memoria e 3-04 Marek l 03:45: Félix 29 potassium 0 Yes Tali not Memor ia 3-04 Marek defined l 03:45: Jay 29 Fluconazole 2021-0 Yes Tali 1 tablet Memoria 3-04 Marek l 03:45: Félix 29 Metronidazo 0 Yes Tali 1 tablet Memoria le 3-04 Marek l 03:45: Félix 29 Metronidazo 2021-0 Yes Tali TAKE 1 M emoria le 3-04 Marek TABLET BY l 03:45: MOUTH Félix 29 EVERY 6 HOURS FOR 10 DAYS Ondansetron 0 Yes Tali not Mem oria HCl 3-04 Marek defined l 03:45: Félix 29 Metronidazo 2021-0 Yes Tali TAKE 1 M emoria le 3-04 Marek TABLET BY l 03:45: MOUTH Félix 29 EVERY 6 HOURS FOR 10 DAYS Pantoprazol 0 Yes Tali 1 tablet Memoria e 3-04 Marek l 03:45: Félix 29 potassium 2021-0 Yes Tali not Memor ia 3-04 Marek defined l 03:45: Félix 29 Fluconazole 2021-0 Yes Tali 1 tablet Memoria 3-04 Marek l 03:45: Jay 29 Metronidazo 2021-0 Yes Tali 1 tablet Memoria le 3-04 Marek l 03:45: Temazepam 0 Yes Tali 1 capsule Memoria 3-04 Marek at bedtime l 03:45: as needed Ramelteon 0 Yes Tali 1 tablet M emoria 3-04 Marek at bedtime l 03:45: as needed Jay Ondansetron Yes Tali not Mem oria HCl 3-04 Marek defined l 03:45: Temazepam 0 Yes Tali 1 capsule Memoria 3-04 Marek at bedtime l 03:45: as needed Félix Ramelteon Yes Tali 1 tablet M emoria 3-04 Marek at bedtime l 03:45: as needed Félix 29 Pantoprazol 0 Yes Tali 1 tablet Memoria e 3-04 Marek l 03:45: potassium 0 Yes Tali not Memor ia 3-04 Marek defined l 03:45: Fluconazole 0 Yes Tali 1 tablet Memoria 3-04 Marek l 03:45: Metronidazo 0 Yes Tali 1 tablet Memoria le 3-04 Marek l 03:45: Metronidazo 0 Yes Tali TAKE 1 M emoria le 3-04 Marek TABLET BY l 03:45: MOUTH Jay 29 EVERY 6 HOURS FOR 10 DAYS Ondansetron Yes Tali not Mem oria HCl 3-04 Marek defined l 03:45: Temazepam 0 Yes Tali 1 capsule Memoria 3-04 Marek at bedtime l 03:45: as needed Félix Ramelteon 0 Yes Tali 1 tablet M emoria 3-04 Marek at bedtime l 03:45: as needed Jay Pantoprazol 0 Yes Tali 1 tablet Memoria e 3-04 Marek l 03:45: potassium 0 Yes Tali not Memor ia 3-04 Marek defined l 03:45: Fluconazole 0 Yes Tali 1 tablet Memoria 3-04 Marek l 03:45: Metronidazo 0 Yes Tali 1 tablet Memoria le 3-04 Marek l 03:45: Metronidazo 0 Yes Tali TAKE 1 M emoria le 3-04 Marek TABLET BY l 03:45: MOUTH EVERY 6 HOURS FOR 10 DAYS Ondansetron 0 Yes Tali not Mem oria HCl 3-04 Marek defined l 03:45: Temazepam 2021-0 Yes Tali 1 capsule Memoria 3-04 Marek at bedtime l 03:45: as needed Ramelteon 0 Yes Tali 1 tablet M emoria 3-04 Marek at bedtime l 03:45: as needed Pantoprazol 0 Yes Tali 1 tablet Memoria e 3-04 Marek l 03:45: potassium 0 Yes Tali not Memor ia 3-04 Marek defined l 03:45: Fluconazole 0 Yes Tali 1 tablet Memoria 3-04 Marek l 03:45: Metronidazo 0 Yes Tali 1 tablet Memoria le 3-04 Marek l 03:45: Metronidazo 0 Yes Tali TAKE 1 M emoria le 3-04 Marek TABLET BY l 03:45: MOUTH EVERY 6 HOURS FOR 10 DAYS Ondansetron 0 Yes Tali not Mem oria HCl 3-04 Marek defined l 03:45: Temazepam 0 Yes Tali 1 capsule Memoria 3-04 Marek at bedtime l 03:45: as needed Ramelteon 0 Yes Tali 1 tablet M emoria 3-04 Marek at bedtime l 03:45: as needed Pantoprazol 0 Yes Tali 1 tablet Memoria e 3-04 Marek l 03:45: potassium 0 Yes Tali not Memor ia 3-04 Marek defined l 03:45: Fluconazole 0 Yes Tali 1 tablet Memoria 3-04 Marek l 03:45: Metronidazo 0 Yes Tali 1 tablet Memoria le 3-04 Marek l 03:45: Metronidazo 0 Yes Tali TAKE 1 M emoria le 3-04 Marek TABLET BY l 03:45: MOUTH Félix 29 EVERY 6 HOURS FOR 10 DAYS Ondansetron Yes Tali not Mem oria HCl 3-04 Marek defined l 03:45: Jay 29 Temazepam 0 Yes Tali 1 capsule Memoria 3-04 Marek at bedtime l 03:45: as needed Ramelteon 0 Yes Tali 1 tablet M emoria 3-04 Marek at bedtime l 03:45: as needed Pantoprazol 0 Yes Tali 1 tablet Memoria e 3-04 Marek l 03:45: Jay 29 potassium 0 Yes Tali not Memor ia 3-04 Marek defined l 03:45: Fluconazole 0 Yes Tali 1 tablet Memoria 3-04 Marek l 03:45: Metronidazo 0 Yes Tali 1 tablet Memoria le 3-04 Marek l 03:45: Metronidazo Yes Tali TAKE 1 M emoria le 3-04 Marek TABLET BY l 03:45: MOUTH Jay 29 EVERY 6 HOURS FOR 10 DAYS Ondansetron 0 Yes Tali not Mem oria HCl 3-04 Marek defined l 03:45: Temazepam 0 Yes Tali 1 capsule Memoria 3-04 Marek at bedtime l 03:45: as needed Ramelteon 0 Yes Tali 1 tablet M emoria 3-04 Marek at bedtime l 03:45: as needed Pantoprazol 0 Yes Tali 1 tablet Memoria e 3-04 Marek l 03:45: potassium 0 Yes Tali not Memor ia 3-04 Marek defined l 03:45: Fluconazole 0 Yes Tali 1 tablet Memoria 3-04 Marek l 03:45: Félix 29 Metronidazo 0 Yes Tali 1 tablet Memoria le 3-04 Mraek l 03:45: Metronidazo 0 Yes Tali TAKE 1 M emoria le 3-04 Marek TABLET BY l 03:45: MOUTH Jay 29 EVERY 6 HOURS FOR 10 DAYS Ondansetron 0 Yes Tali not Mem oria HCl 3-04 Marek defined l 03:45: Temazepam 0 Yes Tali 1 capsule Memoria 3-04 Marek at bedtime l 03:45: as needed Ramelteon 0 Yes Tali 1 tablet M emoria 3-04 Marek at bedtime l 03:45: as needed Pantoprazol 0 Yes Tali 1 tablet Memoria e 3-04 Marek l 03:45: potassium 0 Yes Tali not Memor ia 3-04 Marek defined l 03:45: Fluconazole 0 Yes Tali 1 tablet Memoria 3-04 Marek l 03:45: Metronidazo 0 Yes Tali 1 tablet Memoria le 3-04 Marek l 03:45: Metronidazo 0 Yes Tali TAKE 1 M emoria le 3-04 Marek TABLET BY l 03:45: MOUTH EVERY 6 HOURS FOR 10 DAYS Ondansetron Yes Tali not Mem oria HCl 3-04 Marek defined l 03:45: Temazepam 0 Yes Tali 1 capsule Memoria 3-04 Marek at bedtime l 03:45: as needed Ramelteon 0 Yes Tali 1 tablet M emoria 3-04 Marek at bedtime l 03:45: as needed Ondansetron 0 Yes Tali not Mem oria HCl 3-04 Marek defined l 03:45: Metronidazo 0 Yes Tali TAKE 1 M emoria le 3-04 Marek TABLET BY l 03:45: MOUTH EVERY 6 HOURS FOR 10 DAYS Pantoprazol 0 Yes Tali 1 tablet Memoria e 3-04 Marek l 03:45: potassium 0 Yes Tali not Memor ia 3-04 Marek defined l 03:45: Fluconazole 0 Yes Tali 1 tablet Memoria 3-04 Marek l 03:45: Metronidazo 0 Yes Tali 1 tablet Memoria le 3-04 Marek l 03:45: Temazepam 0 Yes Tali 1 capsule Memoria 3-04 Marek at bedtime l 03:45: as needed Ramelteon 0 Yes Tali 1 tablet M emoria 3-04 Marek at bedtime l 03:45: as needed Ondansetron 0 Yes Tali not Mem oria HCl 3-04 Marek defined l 03:45: Metronidazo Yes Tali TAKE 1 M emoria le 3-04 Marek TABLET BY l 03:45: MOUTH EVERY 6 HOURS FOR 10 DAYS Pantoprazol 0 Yes Tali 1 tablet Memoria e 3-04 Marek l 03:45: potassium 0 Yes Tali not Memor ia 3-04 Marek defined l 03:45: Fluconazole 0 Yes Tali 1 tablet Memoria 3-04 Marek l 03:45: Metronidazo 0 Yes Tali 1 tablet Memoria le 3-04 Marek l 03:45: Temazepam 0 Yes Tali 1 capsule Memoria 3-04 Marek at bedtime l 03:45: as needed Ramelteon 0 Yes Tali 1 tablet M emoria 3-04 Marek at bedtime l 03:45: as needed Ondansetron 0 Yes Tali not Mem oria HCl 3-04 Marek defined l 03:45: Metronidazo 0 Yes Tali TAKE 1 M emoria le 3-04 Marek TABLET BY l 03:45: MOUTH EVERY 6 HOURS FOR 10 DAYS Pantoprazol 0 Yes Tali 1 tablet Memoria e 3-04 Marek l 03:45: potassium 0 Yes Tali not Memor ia 3-04 Marek defined l 03:45: Fluconazole 0 Yes Tali 1 tablet Memoria 3-04 Marek l 03:45: Metronidazo 0 Yes Tali 1 tablet Memoria le 3-04 Marek l 03:45: Temazepam 0 Yes Tali 1 capsule Memoria 3-04 Marek at bedtime l 03:45: as needed Ramelteon 0 Yes Tali 1 tablet M emoria 3-04 Marek at bedtime l 03:45: as needed Ondansetron 0 Yes Tali not Mem oria HCl 3-04 Marek defined l 03:45: Metronidazo 0 Yes Tali TAKE 1 M emoria le 3-04 Marek TABLET BY l 03:45: MOUTH EVERY 6 HOURS FOR 10 DAYS Pantoprazol 0 Yes Tali 1 tablet Memoria e 3-04 Marek l 03:45: potassium 0 Yes Tali not Memor ia 3-04 Marek defined l 03:45: Fluconazole 0 Yes Tali 1 tablet Memoria 3-04 Marek l 03:45: Metronidazo 0 Yes Tali 1 tablet Memoria le 3-04 Marek l 03:45: Temazepam 0 Yes Tali 1 capsule Memoria 3-04 Marek at bedtime l 03:45: as needed Jay 29 Ramelteon 0 Yes Tali 1 tablet M emoria 3-04 Marek at bedtime l 03:45: as needed Félix 29 Ondansetron 0 Yes Tali not Mem oria HCl 3-04 Marek defined l 03:45: Metronidazo Yes Tali TAKE 1 M emoria le 3-04 Marek TABLET BY l 03:45: MOUTH EVERY 6 HOURS FOR 10 DAYS Pantoprazol 0 Yes Tali 1 tablet Memoria e 3-04 Marek l 03:45: potassium 0 Yes Tali not Memor ia 3-04 Marek defined l 03:45: Fluconazole 0 Yes Tali 1 tablet Memoria 3-04 Marek l 03:45: Metronidazo 0 Yes Tali 1 tablet Memoria le 3-04 Marek l 03:45: Temazepam 0 Yes Tali 1 capsule Memoria 3-04 Marek at bedtime l 03:45: as needed Ramelteon 0 Yes Tali 1 tablet M emoria 3-04 Marek at bedtime l 03:45: as needed Ondansetron 0 Yes Tali not Mem oria HCl 3-04 Marek defined l 03:45: Félix 29 Metronidazo Yes Tali TAKE 1 M emoria le 3-04 Marek TABLET BY l 03:45: MOUTH EVERY 6 HOURS FOR 10 DAYS Pantoprazol Yes Tali 1 tablet Memoria e 3-04 Marek l 03:45: Jay 29 potassium 0 Yes Tali not Memor ia 3-04 Marek defined l 03:45: Fluconazole 0 Yes Tali 1 tablet Memoria 3-04 Marek l 03:45: Jay 29 Metronidazo 0 Yes Tali 1 tablet Memoria le 3-04 Marek l 03:45: Temazepam 0 Yes Tali 1 capsule Memoria 3-04 Marek at bedtime l 03:45: as needed Ramelteon Yes Tali 1 tablet M emoria 3-04 Marek at bedtime l 03:45: as needed Ondansetron Yes Tali not Mem oria HCl 3-04 Marek defined l 03:45: Jay 29 Metronidazo Yes Tali TAKE 1 M emoria le 3-04 Marek TABLET BY l 03:45: MOUTH EVERY 6 HOURS FOR 10 DAYS Pantoprazol Yes Tali 1 tablet Memoria e 3-04 Marek l 03:45: potassium 0 Yes Tali not Memor ia 3-04 Marek defined l 03:45: Fluconazole Yes Tali 1 tablet Memoria 3-04 Marek l 03:45: Metronidazo 0 Yes Tali 1 tablet Memoria le 3-04 Marek l 03:45: Temazepam 0 Yes Tali 1 capsule Memoria 3-04 Marek at bedtime l 03:45: as needed Ramelteon 0 Yes Tali 1 tablet M emoria 3-04 Marek at bedtime l 03:45: as needed Jay Triamcinolo 2021-0 2021- No [id number] 40mg Mayra ne -08 12- Seybold Acetonide 18:15: 18:25 (Kenalog) 00 :00 [40 mg/mL] 40mg TOTAL - Physician Administere d ([id number]) Triamcinolo 2021- No [id number] 40mg 40 mg, Mayra ne -09-08 Physician Yenny Acetonide 18:15: 18:25 Administer (Kenalog) 00 :00 [...] 12:01: bedtime as 17 needed Lurasidone Yes [id number] 120mg Take 120 Mayra HCl 3-02 mg [...] clarice 2-16 Marek with food l 03:45: Jay 06 Zaleplon Yes Tali 1-2 Memori a 2-16 Marek capsules l 03:45: at bedtime Félix 06 as needed Latuda Yes Tali 1 tablet Shekhar clarice 2-16 Marek with food l 03:45: Jay 06 Zaleplon Yes Tali 1-2 Memori a 2-16 Marek capsules l 03:45: at bedtime Félix 06 as needed Latuda Yes Tali 1 tablet Shekhar clarice 2-16 Marek with food l 03:45: Félix 06 Zaleplon Yes Tali 1-2 Memori a 2-16 Marek capsules l 03:45: at bedtime Félix 06 as needed Latuda Yes Tali 1 tablet Shekhar clarice 2-16 Marek with food l 03:45: Jay 06 Zaleplon Yes Tali 1-2 Memori a 2-16 Marek capsules l 03:45: at bedtime Félix 06 as needed Latuda Yes Tali 1 tablet Shekhar clarice 2-16 Marek with food l 03:45: Félix 06 Zaleplon Yes Tali 1-2 Memori a 2-16 Marek capsules l 03:45: at bedtime Félix 06 as needed Latuda Yes Tali 1 tablet Shekhar clarice 2-16 Amrek with food l 03:45: Félix 06 Zaleplon Yes Tali 1-2 Memori a 2-16 Marek capsules l 03:45: at bedtime Félix 06 as needed Latuda Yes Tali 1 tablet Shekhar clarice 2-16 Marek with food l 03:45: Jay 06 Zaleplon Yes Tali 1-2 Memori a 2-16 Marek capsules l 03:45: at bedtime Félix 06 as needed Latuda Yes Tali 1 tablet Shekhar clarice 2-16 Marek with food l 03:45: Jay 06 Zaleplon 0 Yes Tali 1-2 Memori a 2-16 Marek capsules l 03:45: at bedtime Félix 06 as needed Latuda Yes Tali 1 tablet Shekhar clarice 2-16 Marek with food l 03:45: Félix 06 Zaleplon Yes Tali 1-2 Memori a 2-16 Marek capsules l 03:45: at bedtime Félix 06 as needed Latuda Yes Tali 1 tablet Shekhar clarice 2-16 Marek with food l 03:45: Félix 06 Zaleplon Yes Tali 1-2 Memori a 2-16 Marek capsules l 03:45: at bedtime Félix 06 as needed Latuda Yes Tali 1 tablet Shekhar clarice 2-16 Marek with food l 03:45: Jay 06 Zaleplon Yes Tali 1-2 Memori a 2-16 Marek capsules l 03:45: at bedtime Félix 06 as needed Latuda Yes Tali 1 tablet Shekhar clarice 2-16 Marek with food l 03:45: Félix 06 Zaleplon Yes Tali 1-2 Memori a 2-16 Marek capsules l 03:45: at bedtime Jay 06 as needed Latuda Yes Tali 1 tablet Shekhar clarice 2-16 Marek with food l 03:45: Jay 06 Zaleplon Yes Tali 1-2 Memori a 2-16 Marek capsules l 03:45: at bedtime Félix 06 as needed Latuda Yes Tali 1 tablet Shekhar clarice 2-16 Marek with food l 03:45: Jay 06 Zaleplon 0 Yes Tali 1-2 Memori a 2-16 Marek capsules l 03:45: at bedtime Félxi 06 as needed Latuda Yes Tali 1 tablet Shekhar clarice 2-16 Marek with food l 03:45: Félix 06 Zaleplon Yes Tlai 1-2 Memori a 2-16 Marek capsules l 03:45: at bedtime as needed Latuda Yes Tali 1 tablet Shekhar clarice 2-16 Marek with food l 03:45: Jay 06 Zaleplon Yes Tali 1-2 Memori a 2-16 Marek capsules l 03:45: at bedtime as needed HYDROcodone Yes [id number] 2{tbl} Q6H Take 2 Mayra -Acetaminop 2-15 tablets by Se missy candelaria ([place]) 00:00: mouth 10-325 MG 00 every 6 oral Tablet hours as needed for pain For chronic pain secondary to fibromyalg ia Seroquel Yes Tali 1-2 Memori a 2-15 Marek tablets at l 00:00: bedtime Jay 00 Ramelteon Yes Tali 1 tablet M emoria 2-15 Marek at bedtime l 00:00: as needed Jay 00 Seroquel Yes Tali 1 tablet Me moria 2-15 Marek l 00:00: Félix 00 Seroquel Yes Tali 1-2 Memori a 2-15 Marek tablets at l 00:00: bedtime Jayelteon Yes Tali 1 tablet M emoria 2-15 Marek at bedtime l 00:00: as needed Félix 00 Seroquel Yes Tali 1 tablet Me moria 2-15 Marek l 00:00: Félix 00 Seroquel Yes Tali 1-2 Memori a 2-15 Marek tablets at l 00:00: bedtime Félix 00 Ramelteon Yes Tali 1 tablet M emoria 2-15 Marek at bedtime l 00:00: as needed Jay 00 Seroquel Yes Tali 1 tablet Me moria 2-15 Marek l 00:00: Félix 00 Seroquel Yes Tali 1-2 Memori a 2-15 Marek tablets at l 00:00: bedtime Félixelteon 2022-0 Yes Tali 1 tablet M emoria 2-15 Marek at bedtime l 00:00: as needed Seroquel Yes Tali 1 tablet Me moria 2-15 Marek l 00:00: Seroquel Yes Tali 1-2 Memori a 2-15 Marek tablets at l 00:00: bedtime Yes Tali 1 tablet M emoria 2-15 Marek at bedtime l 00:00: as needed Seroquel Yes Tali 1 tablet Me moria 2-15 Marke l 00:00: Seroquel Yes Tali 1-2 Memori a 2-15 Marek tablets at l 00:00: bedtime Yes Tali 1 tablet M emoria 2-15 Marek at bedtime l 00:00: as needed Seroquel Yes Tali 1 tablet Me moria 2-15 Marek l 00:00: Seroquel Yes Tali 1-2 Memori a 2-15 Marek tablets at l 00:00: bedtime Yes Tali 1 tablet M emoria 2-15 Marek at bedtime l 00:00: as needed Seroquel Yes Tali 1 tablet Me moria 2-15 Marek l 00:00: Seroquel Yes Tali 1-2 Memori a 2-15 Marek tablets at l 00:00: bedtime Yes Tali 1 tablet M emoria 2-15 Marek at bedtime l 00:00: as needed Seroquel Yes Tali 1 tablet Me moria 2-15 Marek l 00:00: Seroquel Yes Tali 1-2 Memori a 2-15 Marek tablets at l 00:00: bedtime Yes Tali 1 tablet M emoria 2-15 Marek at bedtime l 00:00: as needed Seroquel Yes Tali 1 tablet Me moria 2-15 Marek l 00:00: Seroquel Yes Tali 1-2 Memori a 2-15 Marek tablets at l 00:00: bedtime Seroquel Yes Tali 1 tablet Me moria 2-15 Marek l 00:00: e2021 Yes Tali 1 tablet M emoria 2-15 Marek at bedtime l 00:00: as needed Seroquel Yes Tali 1-2 Memori a 2-15 Marek tablets at l 00:00: bedtime Seroquel Yes Tali 1 tablet Me moria 2-15 Marek l 00:00: Yes Tali 1 tablet M emoria 2-15 Marek at bedtime l 00:00: as needed Seroquel Yes Tali 1-2 Memori a 2-15 Marek tablets at l 00:00: bedtime Seroquel Yes Tali 1 tablet Me moria 2-15 Marek l 00:00: Yes Tali 1 tablet M emoria 2-15 Marek at bedtime l 00:00: as needed Seroquel Yes Tali 1-2 Memori a 2-15 Marek tablets at l 00:00: bedtime Yes Tali 1 tablet M emoria 2-15 Marek at bedtime l 00:00: as needed Seroquel Yes Tali 1 tablet Me moria 2-15 Marek l 00:00: Seroquel Yes Tali 1-2 Memori a 2-15 Marek tablets at l 00:00: bedtime Yes Tali 1 tablet M emoria 2-15 Marek at bedtime l 00:00: as needed Seroquel Yes Tali 1 tablet Me moria 2-15 Marek l 00:00: Seroquel Yes Tali 1-2 Memori a 2-15 Maerk tablets at l 00:00: bedtime Ramelteon 0 Yes Tali 1 tablet M emoria 2-15 Marek at bedtime l 00:00: as needed Seroquel 0 Yes Tali 1 tablet Me moria 2-15 Marek l 00:00: Seroquel Yes Tali 1-2 Memori a 2-15 Marek tablets at l 00:00: bedtime elteon Yes Tali 1 tablet M emoria 2-15 Marek at bedtime l 00:00: as needed Seroquel Yes Tali 1 tablet Me moria 2-15 Marek l 00:00: Belsomra 0 Yes Tali 1 tablet Me moria 2-07 Marek at bedtime l 00:00: as needed Belsomra 0 Yes Tali 1 tablet Me moria 2-07 Marek at bedtime l 00:00: as needed Belsomra 0 Yes Tali 1 tablet Me moria 2-07 Marek at bedtime l 00:00: as needed Belsomra 0 Yes Tali 1 tablet Me moria 2-07 Marek at bedtime l 00:00: as needed Belsomra 0 Yes Tali 1 tablet Me moria 2-07 Marek at bedtime l 00:00: as needed Belsomra 0 Yes Tali 1 tablet Me moria 2-07 Marek at bedtime l 00:00: as needed Belsomra 0 Yes Tali 1 tablet Me moria 2-07 Marek at bedtime l 00:00: as needed Belsomra 0 Yes Tali 1 tablet Me moria 2-07 Marek at bedtime l 00:00: as needed Belsomra 0 Yes Tali 1 tablet Me moria 2-07 Marek at bedtime l 00:00: as needed Belsomra 0 Yes Tali 1 tablet Me moria 2-07 Marek at bedtime l 00:00: as needed Jay Belsomra 0 Yes Tali 1 tablet Me moria 2-07 Marek at bedtime l 00:00: as needed Jay 00 Belsomra 0 Yes Tali 1 tablet Me moria 2-07 Marek at bedtime l 00:00: as needed Jay 00 Belsomra 0 Yes Tali 1 tablet Me moria 2-07 Marek at bedtime l 00:00: as needed Félix Belsomra 0 Yes Tali 1 tablet Me moria 2-07 Marek at bedtime l 00:00: as needed Félix 00 Belsomra 0 Yes Tali 1 tablet Me moria 2-07 Marek at bedtime l 00:00: as needed Jay Belsomra 0 Yes Tali 1 tablet Me moria 2-07 Marek at bedtime l 00:00: as needed Félix 00 Temazepam 0 Yes Tali 1-2 Memor ia 2-02 Marek capsules l 03:45: at bedtime Jay 08 as needed Temazepam 0 Yes Tali 1-2 Memor ia 2-02 Marek capsules l 03:45: at bedtime Félix 08 as needed Temazepam 2021-0 Yes Tali 1-2 Memor ia 2-02 Marek capsules l 03:45: at bedtime Félix 08 as needed Temazepam 2021-0 Yes Tali 1-2 Memor ia 2-02 Marek capsules l 03:45: at bedtime Jay 08 as needed Temazepam 2021-0 Yes Tali 1-2 Memor ia 2-02 Marek capsules l 03:45: at bedtime Félix 08 as needed Temazepam 2021-0 Yes Tali 1-2 Memor ia 2-02 Marek capsules l 03:45: at bedtime Félix 08 as needed Temazepam 2021-0 Yes Tali 1-2 Memor ia 2-02 Marek capsules l 03:45: at bedtime Félix 08 as needed Temazepam 0 Yes Tali 1-2 Memor ia 2-02 Marek capsules l 03:45: at bedtime Jay 08 as needed Temazepam 0 Yes Tali 1-2 Memor ia 2-02 Marek capsules l 03:45: at bedtime Félix 08 as needed Temazepam 0 Yes Tali 1-2 Memor ia 2-02 Marek capsules l 03:45: at bedtime Félix 08 as needed Temazepam 0 Yes Tali 1-2 Memor ia 2-02 Marek capsules l 03:45: at bedtime Jay 08 as needed Temazepam 0 Yes Tali 1-2 Memor ia 2-02 Marek capsules l 03:45: at bedtime Jay 08 as needed Temazepam 0 Yes Tali 1-2 Memor ia 2-02 Marek capsules l 03:45: at bedtime Félix 08 as needed Temazepam 0 Yes Tali 1-2 Memor ia 2-02 Marek capsules l 03:45: at bedtime Jay 08 as needed Temazepam 0 Yes Tali 1-2 Memor ia 2-02 Marek capsules l 03:45: at bedtime Jay 08 as needed Temazepam 0 Yes Tali 1-2 Memor ia 2-02 Marek capsules l 03:45: at bedtime Félix 08 as needed Belsomra 0 Yes Tali 1 tablet Me moria 2-02 Marek at bedtime l 00:00: as needed Jay Belsomra 0 Yes Tali 1 tablet Me moria 2-02 Marek at bedtime l 00:00: as needed Jay Belsomra 0 Yes Tali 1 tablet Me moria 2-02 Marek at bedtime l 00:00: as needed Jay Belsomra 0 Yes Tali 1 tablet Me moria 2-02 Marek at bedtime l 00:00: as needed Jay Belsomra 0 Yes Tali 1 tablet Me moria 2-02 Marek at bedtime l 00:00: as needed Félix Belsomra 2021-0 Yes Tali 1 tablet Me moria 2-02 Marek at bedtime l 00:00: as needed Jay Belsomra 0 Yes Tali 1 tablet Me moria 2-02 Marek at bedtime l 00:00: as needed Félix Belsomra 0 Yes Tali 1 tablet Me moria 2-02 Marek at bedtime l 00:00: as needed Félix Belsomra 2021-0 Yes Tali 1 tablet Me moria 2-02 Marek at bedtime l 00:00: as needed Jay 00 Belsomra 0 Yes Tali 1 tablet Me moria 2-02 Marek at bedtime l 00:00: as needed Félix 00 Belsomra 0 Yes Tali 1 tablet Me moria 2-02 Marek at bedtime l 00:00: as needed Jay Belsomra 0 Yes Tali 1 tablet Me moria 2-02 Marek at bedtime l 00:00: as needed Félix Belsomra 0 Yes Tali 1 tablet Me moria 2-02 Marek at bedtime l 00:00: as needed Jay 00 Belsomra 0 Yes Tali 1 tablet Me moria 2-02 Marek at bedtime l 00:00: as needed Félix 00 Belsomra 0 Yes Tali 1 tablet Me moria 2-02 Marek at bedtime l 00:00: as needed Félix Belsomra 0 Yes Tali 1 tablet Me moria 2-02 Marek at bedtime l 00:00: as needed Félix Zaleplon 0 Yes Tali 1-2 Memori a 2-01 Marek capsules l 00:00: at bedtime Félix 00 as needed Zaleplon 0 Yes Tali 1-2 Memori a 2-01 Marek capsules l 00:00: at bedtime Jay 00 as needed Zaleplon 0 Yes Tali 1-2 Memori a 2-01 Marek capsules l 00:00: at bedtime Jay 00 as needed Zaleplon 0 Yes Tali 1-2 Memori a 2-01 Marek capsules l 00:00: at bedtime Félix 00 as needed Zaleplon 2021-0 Yes Tali 1-2 Memori a 2-01 Marek capsules l 00:00: at bedtime Jay 00 as needed Zaleplon 0 Yes Tali 1-2 Memori a 2-01 Marek capsules l 00:00: at bedtime Félix 00 as needed Zaleplon 0 Yes Tali 1-2 Memori a 2-01 Marek capsules l 00:00: at bedtime Félix 00 as needed Zaleplon 0 Yes Tali 1-2 Memori a 2-01 Marek capsules l 00:00: at bedtime Félix 00 as needed Zaleplon 0 Yes Tali 1-2 Memori a 2-01 Marek capsules l 00:00: at bedtime Félix 00 as needed Zaleplon 0 Yes Tali 1-2 Memori a 2-01 Marek capsules l 00:00: at bedtime Jay 00 as needed Zaleplon 0 Yes Tali 1-2 Memori a 2-01 Marek capsules l 00:00: at bedtime Félix 00 as needed Zaleplon 0 Yes Tali 1-2 Memori a 2-01 Marek capsules l 00:00: at bedtime Jay 00 as needed Zaleplon 0 Yes Tali 1-2 Memori a 2-01 Marek capsules l 00:00: at bedtime Jay 00 as needed Zaleplon 0 Yes Tali 1-2 Memori a 2-01 Marek capsules l 00:00: at bedtime Jay 00 as needed Zaleplon 2021-0 Yes Tali 1-2 Memori a 2-01 Marek capsules l 00:00: at bedtime Félix 00 as needed Zaleplon 2021-0 Yes Tali 1-2 Memori a 2-01 Marek capsules l 00:00: at bedtime Jay 00 as needed Triamcinolo 2021-0 2021- No [id number] 40mg Mayra ne 07-28 9107 Seybold Acetonide 17:15: 17:15 (KENALOG) 00 :00 40 mg/mL Triamcinolo 2021-0 2021- No [id number] 40mg 40 mg, Mayra ne 07-28 9107 intramuscu Seybold Acetonide 17:15: 17:15 lar, ONCE, (KENALOG) 00 :00 On Wed 40 mg/mL 07/28/21 at 1115, For 1 dose Lurasidone 0 Yes [id number] 120mg Take 120 Mayra HCl 1-19 mg by Seybold (LATUDA) 10:45: mouth 120 MG oral 24 daily Tab PANTOPRAZOL 2021-0 Yes 1{tbl} Take 1 Ke lsey E SODIUM OR 1-19 tablet by Sekareen bold 10:45: mouth 24 Benztropine 2021-0 Yes [...] mouth 1.3 % 24 vaginal Gel Mirtazapine 0 Yes 1/2-1 Kelse [...] bedtime as 24 needed Meloxicam 2021-0 Yes [id number] 7.5mg Take 1 Mayra 7.5 MG oral 1-19 9107 tablet Seybol d Tablet 00:00: (7.5 mg 00 total) by mouth daily Meloxicam 2021-0 Yes [id number] 7.5mg Take 1 Mayra 7.5 MG oral 1-19 9107 tablet Seybol d Tablet 00:00: (7.5 mg 00 total) by mouth daily Sumatriptan 2021-0 Yes TAKE ONE Ke lsey Succinate 1-10 [...] (MAX 2 TABLETS PER DAY). Lurasidone Yes [id number] 120mg Take 120 Mayra HCl 1-04 mg by Seybold (LATUDA) 09:44: mouth 120 MG oral 49 daily Tab PANTOPRAZOL 0 Yes 1{tbl} Take [...] Seyb old Tablet 09:44: bedtime 49 Topiramate 2022-0 Yes not Mayra 25 MG oral 1-04 defined Seybol d CAPSULE 09:44: SPRINKLE 49 Trazodone Yes 1{tbl} Take 1 Inga ey HCl 150 MG 1-04 tablet by Seyb old oral Tablet 09:44: mouth at 49 bedtime as needed Trazodone Yes 1-3 Mayra HCl 50 MG 1-04 tablets at Seyb old oral Tablet 09:44: bedtime as 49 needed hydrOXYzine 2020-07 Yes 10mg Q.[id number] Take 10 mg Mayra HCl 10 MG 2-31 [id number] by mouth 3 Seybold oral Tablet 00:00: 3D times - 00 daily as Externa needed l hydrOXYzine 2020-07 Yes 10mg Q.[id number] Take 1 Mayra HCl 10 MG 2-31 [id number] tablet (10 Seybold oral Tablet 00:00: 3D mg total) - 00 by mouth 3 Externa times l daily as needed hydrOXYzine 2020-07 Yes 10mg Q.[id number] Take 1 Mayra HCl 10 MG 2-31 [id number] tablet (10 Seybold oral Tablet 00:00: 3D mg total) - 00 by mouth 3 Externa times l daily as needed. hydrOXYzine 2020-07 Yes 10mg Q.[id number] Take 1 Mayra HCl 10 MG 2-31 [id number] tablet (10 Seybold oral Tablet 00:00: 3D mg total) - 00 by mouth 3 Externa times l daily as needed. hydrOXYzine 2020-07 Yes 10mg Q.[id number] Take 1 Mayra HCl 10 MG 2-31 [id number] tablet (10 Seybold oral Tablet 00:00: 3D mg total) - 00 by mouth 3 Externa times l daily as needed. hydrOXYzine 2020-07 Yes 10mg Q.[id number] Take 10 mg Mayra HCl 10 MG 2-31 [id number] by mouth 3 Seybold oral Tablet 00:00: 3D times 00 daily as needed hydrOXYzine 2020-07 Yes 10mg Q.[id number] Take 10 mg Mayra HCl 10 MG 2-31 [id number] by mouth 3 Seybold oral Tablet 00:00: 3D times 00 daily as needed hydrOXYzine 2020-07 Yes 10mg Q.[id number] Take 10 mg Mayra HCl 10 MG 2-31 [id number] by mouth 3 Seybold oral Tablet 00:00: 3D times 00 daily as needed hydrOXYzine 2020-07 Yes 10mg Q.[id number] Take 10 mg Mayra HCl 10 MG 2-31 [id number] by mouth 3 Seybold oral Tablet 00:00: 3D times 00 daily as needed hydrOXYzine 2020-07 Yes 10mg Q.[id number] Take 10 mg Mayra HCl 10 MG 2-31 [id number] by mouth 3 Seybold oral Tablet 00:00: 3D times 00 daily as needed hydrOXYzine 2020-07 Yes 10mg Q.[id number] Take 10 mg Mayra HCl 10 MG 2-31 [id number] by mouth 3 Seybold oral Tablet 00:00: 3D times 00 daily as needed hydrOXYzine 2020-07 Yes 10mg Q.[id number] Take 10 mg Mayra HCl 10 MG 2-31 [id number] by mouth 3 Seybold oral Tablet 00:00: 3D times - 00 daily as Externa needed l hydrOXYzine 2020-07 Yes 10mg Q.[id number] Take 10 mg Mayra HCl 10 MG 2-31 [id number] by mouth 3 Seybold oral Tablet 00:00: 3D times - 00 daily as Externa needed l hydrOXYzine 2020-07 Yes 10mg Q.[id number] Take 10 mg Mayra HCl 10 MG 2-31 [id number] by mouth 3 Seybold oral Tablet 00:00: 3D times - 00 daily as Externa needed l hydrOXYzine 2020-07 Yes 10mg Q.[id number] Take 10 mg Mayra HCl 10 MG 2-31 [id number] by mouth 3 Seybold oral Tablet 00:00: 3D times - 00 daily as Externa needed l hydrOXYzine 2020- Yes 10mg Q.[id number] Take 10 mg Mayra HCl 10 MG 2-31 [id number] by mouth 3 Seybold oral Tablet 00:00: 3D times - 00 daily as Externa needed l hydrOXYzine 2020- Yes 10mg Q.[id number] Take 10 mg Mayra HCl 10 MG 2-31 [id number] by mouth 3 Seybold oral Tablet 00:00: 3D times - 00 daily as Externa needed l Temazepam 2020-07 Yes TAKE ONE Inga ey [...] OR TWO Sey bold Capsule 00:00: (2) - 00 CAPSULE(S) Externa BY MOUTH l DAILY AT BEDTIME NEEDED. Temazepam 2020-07 Yes TAKE ONE Inga ey 15 MG oral 2-30 (1) OR TWO Sey bold Capsule 00:00: (2) - 00 CAPSULE(S) Externa BY MOUTH l DAILY AT BEDTIME NEEDED. Temazepam 2020-07 Yes TAKE ONE Inga ey 15 MG oral 2-30 (1) OR TWO Sey bold Capsule 00:00: (2) - 00 CAPSULE(S) Externa BY MOUTH l DAILY AT BEDTIME NEEDED. Temazepam 2020-07 Yes TAKE ONE Inga ey 15 MG oral 2-30 (1) OR TWO Sey bold Capsule 00:00: (2) - 00 CAPSULE(S) Externa BY MOUTH l DAILY AT BEDTIME NEEDED. Temazepam 2020-07 Yes TAKE ONE Inga ey 15 MG oral 2-30 (1) OR TWO Sey bold Capsule 00:00: (2) - 00 CAPSULE(S) Externa BY MOUTH l DAILY AT BEDTIME NEEDED. Temazepam 2020-07- No TAKE ONE Matt sey 15 MG oral 2-30 08-10 (1) OR TWO Se ybold Capsule 00:00: 00:00 (2) - 00 :00 CAPSULE(S) Externa BY MOUTH l DAILY AT BEDTIME NEEDED. HYDROcodone 2020-07 Yes 2{tbl} Q6H Take 2 Mayra -Acetaminop 2-22 tablets by Se ybold hen ([employer]) 00:00: mouth 10-325 MG 00 every 6 oral Tablet hours as needed for pain For chronic pain secondary to fibromyalg ia HYDROcodone 2020-07 Yes 2{tbl} Q6H Take 2 Mayra -Acetaminop 2-22 tablets by Se ybold hen ([employer]) 00:00: mouth 10-325 MG 00 every 6 [...] 2 TABS PER DAY). Triamcinolo 2020-07- No [id number] 40mg Mayra ne -06-10 Seybold Acetonide 20:00: 20:11 (Kenalog) 00 :00 [40 mg/mL] 40mg TOTAL - Physician Administere d (J3301) Ketorolac 2020-07- No [id number] 60mg Ke lsey Tromethamin 08-11 Seybold e (TORADOL) 20:00: 20:12 60 mg/2 mL 00 :00 Ketorolac 2020-07- No [id number] 60mg 60 mg, Mayra Tromethamin 08-11 intramuscu S eybold e (TORADOL) 20:00: 20:12 lar, ONCE, 60 mg/2 mL 00 :00 On Alexsandra 06/10/21 at 1400, For 1 dose Triamcinolo 2020-07- No [id number] 40mg 40 mg, Mayra ne 08-11 Physician Yenny Acetonide 20:00: 20:11 Administer (Kenalog) 00 :00 ed, ONCE, [40 mg/mL] On Alexsandra 40mg TOTAL 06/10/21 at - Physician 1400, For Administere 1 dose d (J3301) Lurasidone 2020-07 Yes [id number] 120mg Take 120 Mayra HCl 2-02 mg [...] % 06 vaginal Gel Mirtazapine 2020-07 Yes /08-10 Kelse y 30 MG oral 2-02 tablet [...] bedtime as 06 needed Onabotulinu 2020-07- No [id number] 200U K nmioy mtoxinA 08-10 Seybold [200 Units] 19:30: 19:37 - Physician 00 :00 Administere d ([id number]) Onabotulinu 2020-07- No [id number] 200U 200 unit, Mayra mtoxinA 08-10 Physician ybol d [200 Units] 19:30: 19:37 Administer - Physician 00 :00 ed, ONCE, Administere 1 dose, On d ([id number]) 06/09/21 at 1330 Lurasidone 2020-07 Yes [id number] 120mg Take 120 Mayra HCl 2-01 mg by Seybold (LATUDA) 13:02: mouth 120 MG oral 08 daily Tab PANTOPRAZOL 2020-07 Yes 1{tbl} Take 1 Ke lsey E SODIUM OR 2-01 tablet by Sekareen bold 13:02: mouth 08 Benztropine 2020-07 Yes [...] oral Tablet 13:02: bedtime as 08 needed Temazepam 2020-07 Yes Tali 1-2 Memor ia 2-01 Marek capsules l 00:00: at bedtime Jay 00 as needed Temazepam 2020-07 Yes Tali 1-2 Memor ia 2-01 Marek capsules l 00:00: at bedtime Félix 00 as needed Temazepam 2020-07 Yes Tali 1-2 Memor ia 2-01 Marek capsules l 00:00: at bedtime Jay 00 as needed Temazepam 2020-07 Yes Tali 1-2 Memor ia 2-01 Marek capsules l 00:00: at bedtime Jay 00 as needed Temazepam 2020-07 Yes Tali 1-2 Memor ia 2-01 Marek capsules l 00:00: at bedtime Jay 00 as needed Temazepam 2020-07 Yes Tali 1-2 Memor ia 2-01 Marek capsules l 00:00: at bedtime Jay 00 as needed Temazepam 2020-07 Yes Tali 1-2 Memor ia 2-01 Marek capsules l 00:00: at bedtime Félix 00 as needed Temazepam 2020-07 Yes Tali 1-2 Memor ia 2-01 Marek capsules l 00:00: at bedtime Félix 00 as needed Temazepam 2020-07 Yes Tali 1-2 Memor ia 2-01 Marek capsules l 00:00: at bedtime Félix 00 as needed Temazepam 2020-07 Yes Tali 1-2 Memor ia 2-01 Maerk capsules l 00:00: at bedtime Jay 00 as needed Temazepam 2020-07 Yes Tali 1-2 Memor ia 2-01 Marek capsules l 00:00: at bedtime Félix 00 as needed Temazepam 2020-07 Yes Tali 1-2 Memor ia 2-01 Marek capsules l 00:00: at bedtime Jay 00 as needed Temazepam 2020-07 Yes Tali 1-2 Memor ia 2-01 Marek capsules l 00:00: at bedtime Félix 00 as needed Temazepam 2020-07 Yes Tali 1-2 Memor ia 2-01 Marek capsules l 00:00: at bedtime Félix 00 as needed Temazepam 2020-07 Yes Tali 1-2 Memor ia 2-01 Marek capsules l 00:00: at bedtime Félix 00 as needed Temazepam 2020-07 Yes Tali 1-2 Memor ia 2-01 Marek capsules l 00:00: at bedtime Jay 00 as needed HYDROcodone 2020-07 Yes 2{tbl} Q6H Take 2 Ke lsey -Acetaminop 1-24 tablets by Se missy candelaria ([employer]) 00:00: mouth 10-325 MG 00 every 6 oral Tablet hours as needed for pain For chronic pain secondary to fibromyalg ia HYDROcodone 2020-07 Yes 2{tbl} Q6H Take 2 Ke lsey -Acetaminop 1-24 tablets by Se missy candelaria ([employer]) 00:00: mouth 10-325 MG 00 every 6 oral Tablet hours as needed for pain For chronic pain secondary to fibromyalg ia Temazepam 2020-07 Yes Tali 1-2 Memor ia 0-28 Marek capsules l 00:00: at bedtime Jay 00 as needed Temazepam 2020-07 Yes Tali 1-2 Memor ia 0-28 Marek capsules l 00:00: at bedtime Jay 00 as needed Temazepam 2020-07 Yes Tali 1-2 Memor ia 0-28 Marek capsules l 00:00: at bedtime Félix 00 as needed Temazepam 2020-07 Yes Tali 1-2 Memor ia 0-28 Marek capsules l 00:00: at bedtime Félix 00 as needed Temazepam 2020-07 Yes Tali 1-2 Memor ia 0-28 Marek capsules l 00:00: at bedtime Félix 00 as needed Temazepam 2020-07 Yes Tali 1-2 Memor ia 0-28 Marek capsules l 00:00: at bedtime Félix 00 as needed Temazepam 2020-07 Yes Tali 1-2 Memor ia 0-28 Marek capsules l 00:00: at bedtime Jay 00 as needed Temazepam 2020-07 Yes Tali 1-2 Memor ia 0-28 Marek capsules l 00:00: at bedtime Félix 00 as needed Temazepam 2020-07 Yes Tali 1-2 Memor ia 0-28 Marek capsules l 00:00: at bedtime Jay 00 as needed Temazepam 2020-07 Yes Tali 1-2 Memor ia 0-28 Marek capsules l 00:00: at bedtime Félix 00 as needed Temazepam 2020-07 Yes Tali 1-2 Memor ia 0-28 Marek capsules l 00:00: at bedtime Jay 00 as needed Temazepam 2020-07 Yes Tali 1-2 Memor ia 0-28 Marek capsules l 00:00: at bedtime Jay 00 as needed Temazepam 2020-07 Yes Tali 1-2 Memor ia 0-28 Marek capsules l 00:00: at bedtime Jay 00 as needed Temazepam 2020-07 Yes Tali 1-2 Memor ia 0-28 Marek capsules l 00:00: at bedtime Félix 00 as needed Temazepam 2020-07 Yes Tali 1-2 Memor ia 0-28 Marek capsules l 00:00: at bedtime Félix 00 as needed Temazepam 2020-07 Yes Tali 1-2 Memor ia 0-28 Marek capsules l 00:00: at bedtime Jay 00 as needed Sumatriptan 2020-07 Yes TAKE [...] ONE TABLET IN 2 HOURS IF NEEDED Temazepam Yes Tali 1-2 Memor ia 9-30 Marek capsules l 00:00: at bedtime Félix 00 as needed HydrOXYzine Yes Tali 1 tablet Memoria HCl 9-30 Marek as needed l 00:00: Félix 00 Temazepam Yes Tali 1-2 Memor ia 9-30 Marek capsules l 00:00: at bedtime as needed HydrOXYzine 2020-0 Yes Tali 1 tablet Memoria HCl 9-30 Marek as needed l 00:00: Temazepam 2020-0 Yes Tali 1-2 Memor ia 9-30 Marek capsules l 00:00: at bedtime as needed HydrOXYzine 2020-0 Yes Tali 1 tablet Memoria HCl 9-30 Marek as needed l 00:00: Temazepam 2020-0 Yes Tali 1-2 Memor ia 9-30 Marek capsules l 00:00: at bedtime as needed HydrOXYzine 2020-0 Yes Tali 1 tablet Memoria HCl 9-30 Marek as needed l 00:00: Temazepam 2020-0 Yes Tali 1-2 Memor ia 9-30 Marek capsules l 00:00: at bedtime as needed HydrOXYzine 2020-0 Yes Tali 1 tablet Memoria HCl 9-30 Marek as needed l 00:00: Temazepam 2020-0 Yes Tali 1-2 Memor ia 9-30 Marek capsules l 00:00: at bedtime as needed HydrOXYzine 2020-0 Yes Tali 1 tablet Memoria HCl 9-30 Marek as needed l 00:00: Temazepam 2020-0 Yes Tali 1-2 Memor ia 9-30 Marek capsules l 00:00: at bedtime as needed HydrOXYzine 2020-0 Yes Tali 1 tablet Memoria HCl 9-30 Marek as needed l 00:00: Temazepam 2020-0 Yes Tali 1-2 Memor ia 9-30 Marek capsules l 00:00: at bedtime as needed HydrOXYzine 2020-0 Yes Tali 1 tablet Memoria HCl 9-30 Marek as needed l 00:00: Temazepam 2020-0 Yes Tali 1-2 Memor ia 9-30 Marek capsules l 00:00: at bedtime as needed HydrOXYzine 2020-0 Yes Tali 1 tablet Memoria HCl 9-30 Marek as needed l 00:00: Temazepam 2020-0 Yes Tali 1-2 Memor ia 9-30 Marek capsules l 00:00: at bedtime as needed HydrOXYzine 1-0 Yes Tali 1 tablet Memoria HCl 9-30 Marek as needed l 00:00: Temazepam 1-0 Yes Tali 1-2 Memor ia 9-30 Marek capsules l 00:00: at bedtime as needed HydrOXYzine 1-0 Yes Tali 1 tablet Memoria HCl 9-30 Marek as needed l 00:00: Temazepam 2021-0 Yes Tali 1-2 Memor ia 9-30 Marek capsules l 00:00: at bedtime as needed HydrOXYzine 1-0 Yes Tali 1 tablet Memoria HCl 9-30 Marek as needed l 00:00: Temazepam 1-0 Yes Tali 1-2 Memor ia 9-30 Marek capsules l 00:00: at bedtime as needed HydrOXYzine 1-0 Yes Tali 1 tablet Memoria HCl 9-30 Marek as needed l 00:00: Temazepam 2021-0 Yes Tali 1-2 Memor ia 9-30 Marek capsules l 00:00: at bedtime as needed HydrOXYzine 1-0 Yes Tali 1 tablet Memoria HCl 9-30 Marek as needed l 00:00: Temazepam 1-0 Yes Tali 1-2 Memor ia 9-30 Marek capsules l 00:00: at bedtime as needed HydrOXYzine 1-0 Yes Tali 1 tablet Memoria HCl 9-30 Marek as needed l 00:00: hydrOXYzine 2021-0 Yes 1{tbl} 1 tablet Mayra HCl 10 MG 9-30 by other Seybol d oral Tablet 00:00: route as 00 needed hydrOXYzine 2021-0 Yes 1{tbl} 1 tablet Mayra HCl 10 MG 9-30 by other Seybol d oral Tablet 00:00: route as 00 needed hydrOXYzine 2021-0 Yes 1{tbl} 1 tablet Mayra HCl 10 MG 9-30 by other Seybol d oral Tablet 00:00: route as 00 needed hydrOXYzine 2021-0 Yes 1{tbl} 1 tablet Mayra HCl 10 MG 9-30 by other Seybol d oral Tablet 00:00: route as 00 needed Temazepam 2020-0 Yes Tali 1-2 Memor ia 9-30 Marek capsules l 00:00: at bedtime Jay 00 as needed HydrOXYzine 2020-0 Yes Tali [...] bedtime as 42 needed Lurasidone 2020-0 Yes [id number] 120mg Take 120 Mayra HCl 9-23 mg by Seybold (LATUDA) 15:04: mouth 120 MG oral 42 daily Tab PANTOPRAZOL 2020-0 Yes 1{tbl} Take 1 Ke lsey E SODIUM OR 9-23 tablet by Sey bold 15:04: mouth 42 Benztropine 2020-0 Yes 1{tbl} Take 1 Ke lsey Mesylate 1 9-23 tablet by Seyb old MG oral 15:04: mouth at Tablet 42 bedtime busPIRone 2020-0 Yes 1{tbl} Take 1 Inga [...] -Acetaminop 9-03 tablets by Se missy candelaria ([place]) 00:00: mouth 10-325 MG 00 every 6 oral Tablet hours as needed for pain For chronic pain secondary to fibromyalg ia Ondansetron Yes TAKE ONE Ke lsey HCl 4 MG 8-18 TABLET BY Seybol d oral Tablet 00:00: MOUTH 00 EVERY 8 HOURS NEEDED FOR NAUSEA Rizatriptan Yes TAKE ONE Ke lsey Benzoate 10 8-01 TABLET BY Sey bold MG oral 00:00: MOUTH AT Tablet 00 ONSET OF HEADACHE; MAY REPEAT ONE TABLET IN 2 HOURS IF NEEDED. Oxybutynin Yes TAKE ONE Matt sey Chloride 10 6-06 TABLET BY Sey bold MG oral 00:00: MOUTH TABLET SR 00 DAILY 24 HR Oxybutynin 2020-0 Yes TAKE ONE Matt sey Chloride 10 6-06 TABLET BY Sey bold MG oral 00:00: MOUTH TABLET SR 00 DAILY 24 HR Oxybutynin 2020-0 Yes TAKE ONE Matt sey Chloride 10 6-06 TABLET BY Sey bold MG oral 00:00: MOUTH TABLET SR 00 DAILY 24 HR Oxybutynin 2020-0 Yes TAKE ONE Matt sey Chloride 10 6-06 TABLET BY Sey bold MG oral 00:00: MOUTH TABLET SR 00 DAILY 24 HR Oxybutynin 2020-0 Yes TAKE ONE Matt sey Chloride 10 6-06 TABLET BY Sey bold MG oral 00:00: MOUTH TABLET SR 00 DAILY 24 HR Benztropine 2021-0 Yes Tali 1 tablet Memoria Mesylate 5-06 Marek at bedtime l 02:45: Félix Benztropine 2021-0 Yes Tali 1 tablet Memoria Mesylate 5-06 Marek at bedtime l 02:45: Félix Benztropine 2021-0 Yes Tali 1 tablet Memoria Mesylate 5-06 Marek at bedtime l 02:45: Félix 33 Benztropine 1-0 Yes Tali 1 tablet Memoria Mesylate 5-06 Marek at bedtime l 02:45: Félix 33 Benztropine 1-0 Yes Tali 1 tablet Memoria Mesylate 5-06 Marek at bedtime l 02:45: Félix 33 Benztropine 1-0 Yes Tali 1 tablet Memoria Mesylate 5-06 Marek at bedtime l 02:45: Félix 33 Benztropine 1-0 Yes Tali 1 tablet Memoria Mesylate 5-06 Marek at bedtime l 02:45: Félix Benztropine 2020-0 Yes Tali 1 tablet Memoria Mesylate 5-06 Marek at bedtime l 02:45: Félix 33 Benztropine 1-0 Yes Tali 1 tablet Memoria Mesylate 5-06 Marek at bedtime l 02:45: Félix 33 Benztropine 1-0 Yes Tali 1 tablet Memoria Mesylate 5-06 Marek at bedtime l 02:45: Félix 33 Benztropine 2021-0 Yes Tali 1 tablet Memoria Mesylate 5-06 Marek at bedtime l 02:45: Félix 33 Benztropine 1-0 Yes Tali 1 tablet Memoria Mesylate 5-06 Marek at bedtime l 02:45: Félix 33 Benztropine 2021-0 Yes Tali 1 tablet Memoria Mesylate 5-06 Marek at bedtime l 02:45: Félix 33 Benztropine 1-0 Yes Tali 1 tablet Memoria Mesylate 5-06 Marek at bedtime l 02:45: Félix 33 Benztropine 2021-0 Yes Tali 1 tablet Memoria Mesylate 5-06 Marek at bedtime l 02:45: Félix 33 Benztropine 2021-0 Yes Tali 1 tablet Memoria Mesylate 5-06 Marek at bedtime l 02:45: Félix 33 lurasidone Yes 120mg QD Take [address] [facility] ([facility]) [facility]-01 [facility] mg Tab 14:17: mouth Medica l 48 daily. [place] lurasidone Yes 120mg QD Take [address] [facility] [address] [facility] ([place]) 5-01 [facility] mg Tab 14:17: mouth Medica l 48 daily. [place] lurasidone Yes 120mg QD Take [address] [facility] [address] [facility] ([place]) 5-01 [facility] 120 mg Tab 14:17: mouth Medica l 48 daily. [place] lurasidone Yes 120mg QD Take [address] [facility] [address] [facility] ([place]) 5-01 [facility] 120 mg Tab 14:17: mouth Medica l 48 daily. [place] lurasidone Yes 120mg QD Take [address] [facility] [address] [facility] ([place]) 5-01 [facility] 120 mg Tab 14:17: mouth Medica l 48 daily. [place] lurasidone Yes 120mg QD Take [address] [facility] [address] [facility] ([place]) 5-01 mg [facility] 120 mg Tab 14:17: mouth Medica l 48 daily. [place] lurasidone Yes 120mg QD Take [address] [facility] [address] [facility] ([place]) 5-01 [facility] 120 mg Tab 14:17: mouth Medica l 48 daily. [place] docusate 2020- No 100mg Q.5D Take 1 [facility] 11-[facility] 05-11 capsule [facility] (COLACE) 00:00: 23:59 (100 mg Medic al 100 MG 00 :00 total) by [place] capsule mouth 2 (two) times daily for [...] MG tablet 12:35: 00:00 Medical 45 :00 [place] ciprofloxac 2020- No 500mg Take [address] [facility] in HCl 4-23 04-23 mg by [facility] (CIPRO) 500 20:58: 00:00 mouth. Med ical MG tablet 58 :00 [place] lurasidone 2020- No Take by [facility] (LATUDA) 40 4-23 04-23 [facility]. [facility] mg Tab 20:58: 00:00 Medical 58 :00 [place] oxybutynin 0 Yes 10mg QD Take [address] [facility] (DITROPAN-X 4-21 by mouth Luke s L) 10 MG 24 00:00: daily . Med ical hr tablet 00 [place] oxybutynin Yes 10mg QD Take [address] [facility] (DITROPAN-X 4-21 by mouth Luke s L) 10 MG 24 00:00: daily . Med ical hr tablet 00 [place] oxybutynin Yes 10mg QD Take [address] [facility] (DITROPAN-X 4-21 by mouth Luke s L) 10 MG 24 00:00: daily . Med ical hr tablet 00 [place] oxybutynin Yes 10mg QD Take [address] [facility] (DITROPAN-X 4-21 by mouth Luke s L) 10 MG 24 00:00: daily . Med ical hr tablet 00 [place] oxybutynin Yes 10mg QD Take [address] [facility] (DITROPAN-X 4-21 by mouth Luke s L) 10 MG 24 00:00: daily . Med ical hr tablet 00 [place] oxybutynin Yes 10mg QD Take [address] [facility] (DITROPAN-X 4-21 by mouth Luke s L) 10 MG 24 00:00: daily . Med ical hr tablet 00 [facility] oxybutynin 0 Yes 10mg QD Take [address] [facility] (DITROPAN-X 4-21 by mouth Luke s L) 10 MG 24 00:00: daily . Med ical hr tablet 00 [place] temazepam Yes 15mg Take [address] [facility] ([facility]ORIL) 4-06 [facility] 15 mg 00:00: every Medical capsule 00 night as Center needed . temazepam 0 Yes 15mg Take [address] [facility] ([facility]ORIL) 4-06 [facility] 15 mg 00:00: every Medical capsule 00 night as Center needed . temazepam 0 Yes 15mg Take [address] [facility] [address] [facility] ([facility]ORIL) 4-06 by [facility] 15 mg 00:00: every Medical capsule 00 night as Center needed . temazepam 0 Yes 15mg Take [address] [facility] [address] [facility] (RESTORIL) 4-06 by [facility] 15 mg 00:00: every Medical capsule 00 night as Center needed . temazepam 0 Yes 15mg Take 15 mg [facility] [...] [place] clarice HCl 4-01 Lidasan l 02:48: 48 BusPIRone Yes Robinson 1 tablet Shekhar clarice HCl 4-01 Lidasan l 02:48: 48 BusPIRone Yes Robinson 1 tablet Shekhar clarice HCl 4-01 Lidasan l 02:48: 48 BusPIRone Yes Robinson 1 tablet Shekhar clarice HCl 4-01 Lidasan l 02:48: 48 BusPIRone Yes Robinson 1 tablet Shekhar clarice HCl 4-01 Lidasan l 02:48: 48 BusPIRone Yes Robinson 1 tablet Shekhar clarice HCl 4-01 Lidasan l 02:48: 48 BusPIRone Yes Robinson 1 tablet Shekhar clarice HCl 4-01 Lidasan l 02:48: 48 BusPIRone Yes Robinson 1 tablet Shekhar clarice HCl 4-01 Lidasan l 02:48: 48 BusPIRone Yes Robinson 1 tablet Shekhar clarice HCl 4-01 Lidasan l 02:48: 48 BusPIRone 2020-0 Yes Robinson 1 tablet Shekhar clarice HCl 4-01 Lidasan l 02:48: 48 BusPIRone 2020-0 Yes Robinson 1 tablet Shekhar clarice HCl 4-01 Lidasan l 02:48: 48 BusPIRone 2020-0 Yes Robinson 1 tablet Shekhar clarice HCl 4-01 Lidasan l 02:48: 48 BusPIRone 2020-0 Yes Robinson 1 tablet Shekhar clarice HCl 4-01 Lidasan l 02:48: 48 BusPIRone 2020-0 Yes Robinson 1 tablet Shekhar clarice HCl 4-01 Lidasan l 02:48: 48 BusPIRone 2020-0 Yes Robinson 1 tablet Shekhar clarice HCl 4-01 Lidasan l 02:48: 48 BusPIRone 2020-0 Yes Robinson 1 tablet Shekhar clarice HCl 4-01 Lidasan l 02:48: 48 Tizanidine 0 Yes TAKE TWO Matt [...] Seybo ld oral Tablet 00:00: MOUTH AT - 00 BEDTIME Externa l Tizanidine Yes TAKE TWO Matt sey HCl 4 MG 4-01 TABLETS BY Seybo ld oral Tablet 00:00: MOUTH AT - 00 BEDTIME Externa l Tizanidine Yes TAKE TWO Matt sey HCl 4 MG 4-01 TABLETS BY Seybo ld oral Tablet 00:00: MOUTH AT - 00 BEDTIME Externa l Tizanidine Yes TAKE TWO Matt sey HCl 4 MG 4-01 TABLETS BY Seybo ld oral Tablet 00:00: MOUTH AT - 00 BEDTIME Externa l Tizanidine Yes TAKE TWO Matt sey HCl 4 MG 4-01 TABLETS BY Seybo ld oral Tablet 00:00: MOUTH AT 00 BEDTIME Tizanidine Yes TAKE TWO Matt sey HCl 4 MG 4-01 TABLETS BY Seybo ld oral Tablet 00:00: MOUTH AT - 00 BEDTIME Externa l Tizanidine 2022- No TAKE TWO Ke lsey HCl 4 MG 4-01 02-01 TABLETS BY Seyb old oral Tablet 00:00: 00:00 MOUTH AT - 00 :00 BEDTIME Externa l busPIRone 2020- No [address] [facility] (BUSPAR) 15 4-24 [facility] tablet 00:00: 00:00 Medical 00 :00 [place] Latuda 120 2020- No 120mg QD [address] [facility] mg Tab 09-1224 daily . [facility] 00:[facility]: 00:00 Medical 00 :00 [place] Sumatriptan Yes TAKE ONE Ke lsey Succinate 2-24 TABLET BY Seybo ld 100 MG oral 00:00: MOUTH AT Tablet 00 ONSET OF HEADACHE; MAY REPEAT ONE TABLET IN 2 HOURS IF NEEDED. ( MAX OF 2 TABLET IN 24 HOURS) benztropine 2020- No [facility]CO[facility] 2- 04-24 [facility] 1 MG tablet 00:00: 00:00 Medic al 00 :00 [facility] pantop[facility]ol 2020- [facility] (PROTONIX) 00:00: 00:00 Medica l 40 MG 00 :00 Center tablet Trazodone 0 Yes Sharifa 1 tablet Me moria HCl 1-19 Walker at bedtime l 03:45: as needed Jay 16 Lorazepam 2020-0 Yes Sharifa 1 tablet Me moria 1-19 Walker as needed l 03:45: Jay 16 Trazodone 2020-0 Yes Sharifa 1 tablet Me moria HCl 1-19 Walker at bedtime l 03:45: as needed Jay 16 Lorazepam 2020-0 Yes Sharifa 1 tablet Me moria 1-19 Walker as needed l 03:45: Jay 16 Trazodone 2020-0 Yes Sharifa 1 tablet Me moria HCl 1-19 Walker at bedtime l 03:45: as needed Jay 16 Lorazepam 2020-0 Yes Sharifa 1 tablet Me moria 1-19 Walker as needed l 03:45: Jay 16 Trazodone 2020-0 Yes Sharifa 1 tablet Me moria HCl 1-19 Walker at bedtime l 03:45: as needed Félix 16 Lorazepam 2020-0 Yes Sharifa 1 tablet Me moria 1-19 Walker as needed l 03:45: Jay 16 Trazodone 2020-0 Yes Sharifa 1 tablet Me moria HCl 1-19 Walker at bedtime l 03:45: as needed Félix 16 Lorazepam 2020-0 Yes Sharifa 1 tablet Me moria 1-19 Walker as needed l 03:45: Félix 16 Trazodone 2020-0 Yes Sharifa 1 tablet Me moria HCl 1-19 Walker at bedtime l 03:45: as needed Jay 16 Lorazepam 2020-0 Yes Sharifa 1 tablet Me moria 1-19 Walker as needed l 03:45: Félix 16 Trazodone 2020-0 Yes Sharifa 1 tablet Me moria HCl 1-19 Walker at bedtime l 03:45: as needed Jay 16 Lorazepam 2020-0 Yes Sharifa 1 tablet Me moria 1-19 Walker as needed l 03:45: Jay 16 Trazodone 2020-0 Yes Sharifa 1 tablet Me moria HCl 1-19 Walker at bedtime l 03:45: as needed Jay 16 Lorazepam 2020-0 Yes Sharifa 1 tablet Me moria 1-19 Walker as needed l 03:45: Félix 16 Trazodone 2020-0 Yes Sharifa 1 tablet Me moria HCl 1-19 Walker at bedtime l 03:45: as needed Félix 16 Lorazepam 2020-0 Yes Sharifa 1 tablet Me moria 1-19 Walker as needed l 03:45: Félix 16 Trazodone 2020-0 Yes Sharifa 1 tablet Me moria HCl 1-19 Walker at bedtime l 03:45: as needed Félix 16 Lorazepam 2020-0 Yes Sharifa 1 tablet Me moria 1-19 Walker as needed l 03:45: Félix 16 Trazodone 2020-0 Yes Sharifa 1 tablet Me moria HCl 1-19 Walker at bedtime l 03:45: as needed Félix 16 Lorazepam 2020-0 Yes Sharifa 1 tablet Me moria 1-19 Walker as needed l 03:45: Félix 16 Trazodone 2020-0 Yes Sharifa 1 tablet Me moria HCl 1-19 Walker at bedtime l 03:45: as needed Félix 16 Lorazepam 2020-0 Yes Sharifa 1 tablet Me moria 1-19 Walker as needed l 03:45: Félix 16 Trazodone 2020-0 Yes Sharifa 1 tablet Me moria HCl 1-19 Walker at bedtime l 03:45: as needed Félix 16 Lorazepam 2020-0 Yes Sharifa 1 tablet Me moria 1-19 Walker as needed l 03:45: Félix 16 Trazodone 2020-0 Yes Sharifa 1 tablet Me moria HCl 1-19 Walker at bedtime l 03:45: as needed Félix 16 Lorazepam 2020-0 Yes Sharifa 1 tablet Me moria 1-19 Walker as needed l 03:45: Félix 16 Trazodone 2020-0 Yes Sharifa 1 tablet Me moria HCl 1-19 Walker at bedtime l 03:45: as needed Félix 16 Lorazepam 2020-0 Yes Sharifa 1 tablet Me moria 1-19 Walker as needed l 03:45: Trazodone 0 Yes Sharifa 1 tablet Me moria HCl 1-19 Walker at bedtime l 03:45: as needed Lorazepam Yes Sharifa 1 tablet Me moria 1-19 Walker as needed l 03:45: Trazodone 2019-07 Yes Robinson 1 tablet Shekhar [...] at bedtime l 00:00: Trazodone 2019-07 Yes 1{tbl} Take 1 Inga [...] oral Tablet 00:00: mouth at 00 bedtime Externa l Trazodone 2019-07 Yes 1{tbl} Take 1 Inga ey HCl 100 MG 2-23 tablet by Seyb old oral Tablet 00:00: mouth at - 00 bedtime Externa l Trazodone 2019-07 Yes 1{tbl} Take 1 Inga ey HCl 100 MG 2-23 tablet by Seyb old oral Tablet 00:00: mouth at 00 bedtime Externa l Trazodone 2019-07 Yes 1{tbl} Take 1 Inga ey HCl 100 MG 2-23 tablet by Seyb old oral Tablet 00:00: mouth at 00 bedtime Externa l Trazodone 2019-07 Yes 1{tbl} Take 1 Inga ey HCl 100 MG 2-23 tablet by Seyb old oral Tablet 00:00: mouth at 00 bedtime Externa l Trazodone 2019-07 Yes Robinson 1 tablet [place]har clarice HCl 2-23 Lidasan at bedtime l 00:00: Trazodone 2019-07- No 1{tbl} Take 1 Matt sey HCl 100 MG 2-23 02-01 tablet by Sey bold oral Tablet 00:00: 00:00 mouth at - 00 :00 bedtime Externa l Temazepam 2019-07 Yes Sharifa 1 capsule M [...] [facility] tablet 00:00: MOUTH [facility] EVERY 8 Center HOURS NEEDED FOR NAUSEA ondansetron Yes TAKE ONE [facility] (ZOFRAN) 4 9-30 TABLET BY Luke s MG tablet 00:00: MOUTH Medical EVERY 8 Center HOURS NEEDED FOR NAUSEA ondansetron Yes TAKE ONE [facility] (ZOFRAN) 4 9-30 TABLET BY Luke s MG tablet 00:00: MOUTH Medical EVERY 8 Center HOURS NEEDED FOR NAUSEA ondansetron Yes TAKE ONE [facility] (ZOFRAN) 4 9-30 TABLET BY Luke s MG tablet 00:00: MOUTH Medical EVERY 8 Center HOURS NEEDED FOR NAUSEA ondansetron 2020-0 Yes TAKE ONE [facility] (ZOFRAN) 4 9-30 TABLET BY Luke s MG tablet 00:00: MOUTH Medical EVERY 8 Center HOURS NEEDED FOR NAUSEA ondansetron 2020-0 Yes TAKE ONE [facility] (ZOFRAN) 4 9-30 TABLET BY Luke s MG tablet 00:00: MOUTH Medical 00 EVERY 8 Center HOURS NEEDED FOR NAUSEA ondansetron Yes TAKE ONE [facility] (ZOFRAN) 4 9-30 TABLET BY Luke s MG tablet 00:00: MOUTH Medical 00 EVERY 8 Center HOURS NEEDED FOR NAUSEA Midodrine Yes [id number] 2.5mg Take 1 K elsey HCl 2.5 MG 9-22 tablet [facility] oral Tab 00:00: (2.5 mg 00 total) by mouth daily Midodrine Yes [id number] 2.5mg Take 1 K elsey HCl 2.5 MG 9-22 tablet [facility] oral Tab 00:00: (2.5 mg 00 total) by mouth daily Midodrine Yes [id number] 2.5mg Take 1 K elsey HCl 2.5 MG 9-22 tablet [facility] oral Tab 00:00: (2.5 mg 00 total) by mouth daily Midodrine Yes [id number] 2.5mg Take 1 K elsey HCl 2.5 MG 9-22 tablet [facility] oral Tab 00:00: (2.5 mg 00 total) by mouth daily Midodrine Yes [id number] 2.5mg Take 1 K elsey HCl 2.5 MG 9-22 tablet [facility] oral Tab 00:00: (2.5 mg 00 total) by mouth daily Midodrine Yes [id number] 2.5mg Take 1 K elsey HCl 2.5 MG 9-22 tablet [facility] oral Tab 00:00: (2.5 mg 00 total) by mouth daily Midodrine Yes [id number] 2.5mg Take 1 K elsey HCl 2.5 MG 9-22 tablet [facility] oral Tab 00:00: (2.5 mg 00 total) by mouth daily Midodrine Yes [id number] 2.5mg Take 1 K elsey HCl 2.5 MG 9-22 tablet [facility] oral Tab 00:00: (2.5 mg 00 total) by mouth daily Midodrine Yes [id number] 2.5mg Take 1 K elsey HCl 2.5 MG 9-22 tablet [facility] oral Tab 00:00: (2.5 mg 00 total) by mouth daily Midodrine [id number] 2.5mg Take 1 Mayra HCl 2.5 MG 03-31 06-03 tablet Seybol d oral Tab 00:00: 00:00 (2.5 mg 00 :00 total) by mouth daily midodrine No 2.5mg Take 2.[address] [facility] [address] [facility] (PROAMATINE 03-31 04-24 [facility] ) 2.5 MG [...] emoria 8-19 Lopez as needed l 02:45: Jay 46 Hydrocodone 2020-0 Yes Lola 2 tablets [...] 8-19 Lopez as needed l 02:45: Félix Mirtazapine 2020-0 Yes Lola 1/2-1 Me moria 8-18 Lopez tablet at l 02:46: bedtime Félix Rizatriptan 2020-0 Yes Lola not Mem oria Benzoate 8-18 Lopez defined l 02:46: Félix Sumatriptan 2020-0 Yes Lola not Mem oria Succinate 8-18 Lopez defined l 02:46: Félix Topiramate 2020-0 Yes Lola not Shekhar clarice 8-18 Lopez defined l 02:46: Félix Zuniga Promethazin 2020-0 Yes Lola 1 tablet Memoria e HCl 8-18 Lopez l 02:46: Félix Mirtazapine 2020-0 Yes Lola 1/2-1 Me moria 8-18 Lopez tablet at l 02:46: bedtime Félix Zuniga Rizatriptan 2020-0 Yes Lola not Mem oria Benzoate 8-18 Lopez defined l 02:46: Félix Sumatriptan 2020-0 Yes Lola not Mem oria Succinate 8-18 Lopez defined l 02:46: Félix Zuniga Topiramate 2020-0 Yes Lola not Shekhar clarice 8-18 Lopez defined l 02:46: Félix Promethazin 2020-0 Yes Lola 1 tablet Memoria e HCl 8-18 Lopez l 02:46: Félix Mirtazapine 2020-0 Yes Lola 1/2-1 Me moria 8-18 Lopez tablet at l 02:46: bedtime Jay 28 Rizatriptan 2020-0 Yes Lola not Mem oria Benzoate 8-18 Lopez defined l 02:46: Jay 28 Sumatriptan 2020-0 Yes Lola not Mem oria Succinate 8-18 Lopez defined l 02:46: Jay 28 Topiramate 2020-0 Yes Lola not Shekhar clarice 8-18 Lopez defined l 02:46: Félix 28 Promethazin 2020-0 Yes Lola 1 tablet Memoria e HCl 8-18 Lopez l 02:46: Félix 28 Mirtazapine 2020-0 Yes Lola 1/2-1 Me moria 8-18 Lopez tablet at l 02:46: bedtime Jay 28 Rizatriptan 2020-0 Yes Lola not Mem oria Benzoate 8-18 Lopez defined l 02:46: Félix 28 Sumatriptan 2020-0 Yes Lola not Mem oria Succinate 8-18 Lopez defined l 02:46: Félix 28 Topiramate 2020-0 Yes Lola not Shekhar clarice 8-18 Lopez defined l 02:46: Félix 28 Promethazin 2020-0 Yes Lola 1 tablet Memoria e HCl 8-18 Lopez l 02:46: Féilx 28 Mirtazapine 2020-0 Yes Lola 1/2-1 Me moria 8-18 Lopez tablet at l 02:46: bedtime Félix 28 Rizatriptan 2020-0 Yes Lola not Mem oria Benzoate 8-18 Lopez defined l 02:46: Félix 28 Sumatriptan 2020-0 Yes Loal not Mem oria Succinate 8-18 Lopez defined l 02:46: Félix 28 Topiramate 2020-0 Yes Lola not Shekhar clarice 8-18 Lopez defined l 02:46: Félix 28 Promethazin 2020-0 Yes Lola 1 tablet Memoria e HCl 8-18 Lopez l 02:46: Félix 28 Mirtazapine 2020-0 Yes Lola 1/2-1 Me moria 8-18 Lopez tablet at l 02:46: bedtime Félix 28 Rizatriptan 2020-0 Yes Lola not Mem oria Benzoate 8-18 Lopez defined l 02:46: Jay 28 Sumatriptan 2020-0 Yes Lola not Mem oria Succinate 8-18 Lopez defined l 02:46: Jay 28 Topiramate 2020-0 Yes Lola not Shekhar clarice 8-18 Lopez defined l 02:46: Félix 28 Promethazin 2020-0 Yes Lola 1 tablet Memoria e HCl 8-18 Lopez l 02:46: Félix 28 Mirtazapine 2020-0 Yes Lola 1/2-1 Me moria 8-18 Lopez tablet at l 02:46: bedtime Félix 28 Rizatriptan 2020-0 Yes Lola not Mem oria Benzoate 8-18 Lopez defined l 02:46: Jay 28 Sumatriptan 2020-0 Yes Lola not Mem oria Succinate 8-18 Lopez defined l 02:46: Félix 28 Topiramate 2020-0 Yes Lola not Shekhar clarice 8-18 Lopez defined l 02:46: Félix 28 Promethazin 2020-0 Yes Lola 1 tablet Memoria e HCl 8-18 Lopez l 02:46: Félix 28 Mirtazapine 2020-0 Yes Lola 1/2-1 Me moria 8-18 Lopez tablet at l 02:46: bedtime Félix 28 Rizatriptan 2020-0 Yes Lola not Mem oria Benzoate 8-18 Lopez defined l 02:46: Félix 28 Sumatriptan 2020-0 Yes Lola not Mem oria Succinate 8-18 Lopez defined l 02:46: Félix 28 Topiramate 2020-0 Yes Lola not Shekhar clarice 8-18 Lopez defined l 02:46: Félix 28 Promethazin 2020-0 Yes Lola 1 tablet Memoria e HCl 8-18 Lopez l 02:46: Félix 28 Mirtazapine 2020-0 Yes Lola 1/2-1 Me moria 8-18 Lopez tablet at l 02:46: bedtime Félix 28 Rizatriptan 2020-0 Yes Lola not Mem oria Benzoate 8-18 Lopez defined l 02:46: Jay 28 Topiramate 2020-0 Yes Lola not Shekhar clarice 8-18 Lopez defined l 02:46: Félix 28 Promethazin 2020-0 Yes Lola 1 tablet Memoria e HCl 8-18 Lopez l 02:46: Félix 28 Sumatriptan 2020-0 Yes Lola not Mem oria Succinate 8-18 Lopez defined l 02:46: Jay 28 Mirtazapine 2020-0 Yes Lola 1/2-1 Me moria 8-18 Lopez tablet at l 02:46: bedtime Félix 28 Rizatriptan 2020-0 Yes Lola not Mem oria Benzoate 8-18 Lopez defined l 02:46: Félix 28 Topiramate 2020-0 Yes Lola not Shekhar clarice 8-18 Lopez defined l 02:46: Jay 28 Promethazin 2020-0 Yes Lola 1 tablet Memoria e HCl 8-18 Lopez l 02:46: Félix 28 Sumatriptan 2020-0 Yes Lola not Mem oria Succinate 8-18 Lopez defined l 02:46: Félix 28 Mirtazapine 2020-0 Yes Lola 1/2-1 Me moria 8-18 Lopez tablet at l 02:46: bedtime Félix 28 Rizatriptan 2020-0 Yes Lola not Mem oria Benzoate 8-18 Lopez defined l 02:46: Félix 28 Topiramate 2020-0 Yes Lola not Shekhar clarice 8-18 Lopez defined l 02:46: Félix 28 Promethazin 2020-0 Yes Lola 1 tablet Memoria e HCl 8-18 Lopez l 02:46: Félix 28 Sumatriptan 2020-0 Yes Lola not Mem oria Succinate 8-18 Lopez defined l 02:46: Félix 28 Mirtazapine 2020-0 Yes Lola 1/2-1 Me moria 8-18 Lopez tablet at l 02:46: bedtime Félix 28 Rizatriptan 2020-0 Yes Lola not Mem oria Benzoate 8-18 Lopez defined l 02:46: Jay 28 Topiramate 2020-0 Yes Lola not Shekhar clarice 8-18 Lopez defined l 02:46: Félix 28 Promethazin 2020-0 Yes Lola 1 tablet Memoria e HCl 8-18 Lopez l 02:46: Félix 28 Sumatriptan 2020-0 Yes Lola not Mem oria Succinate 8-18 Lopez defined l 02:46: Jay 28 Mirtazapine 2020-0 Yes Lola 1/2-1 Me moria 8-18 Olpez tablet at l 02:46: bedtime Félix 28 Rizatriptan 2020-0 Yes Lola not Mem oria Benzoate 8-18 Lopez defined l 02:46: Félix 28 Topiramate 2020-0 Yes Lola not Shekhar clarice 8-18 Lopez defined l 02:46: Félix 28 Promethazin 2020-0 Yes Lola 1 tablet Memoria e HCl 8-18 Lopez l 02:46: Félix 28 Sumatriptan 2020-0 Yes Lola not Mem oria Succinate 8-18 Lopez defined l 02:46: Félix 28 Mirtazapine 2020-0 Yes Lola 1/2-1 Me moria 8-18 Lopez tablet at l 02:46: bedtime Félix 28 Rizatriptan 2020-0 Yes Lola not Mem oria Benzoate 8-18 Lopez defined l 02:46: Félix 28 Topiramate 2020-0 Yes Lola not Shekhar clarice 8-18 Lopez defined l 02:46: Félix 28 Promethazin 2020-0 Yes Lola 1 tablet Memoria e HCl 8-18 Lopez l 02:46: Félix 28 Sumatriptan 2020-0 Yes Lola not Mem oria Succinate 8-18 Lopez defined l 02:46: Félix 28 Mirtazapine 2020-0 Yes Lola 1/2-1 Me moria 8-18 Lopez tablet at l 02:46: bedtime Jay 28 Rizatriptan 2020-0 Yes Lola not Mem oria Benzoate 8-18 Lopez defined l 02:46: Félix 28 Topiramate 2020-0 Yes Lola not Shekhar clarice 8-18 Lopez defined l 02:46: Félix 28 Promethazin 2020-0 Yes Lola 1 tablet Memoria e HCl 8-18 Lopez l 02:46: Félix Zuniga Sumatriptan 2020-0 Yes Lola not Mem oria Succinate 8-18 Lopez defined l 02:46: Félix Zuniga Mirtazapine 2020-0 Yes Lola 1/2-1 Me moria 8-18 Lopez tablet at l 02:46: bedtime Félix Zuniga Rizatriptan 2020-0 Yes Lola not Mem oria Benzoate 8-18 Lopez defined l 02:46: Félix Zuniga Topiramate 2020-0 Yes Lola not Shekhar clarice 8-18 Lpoez defined l 02:46: Félix Zuniga Promethazin 2020-0 Yes Lola 1 tablet Memoria e HCl 8-18 Lopez l 02:46: Félix Zuniga Sumatriptan 2020-0 Yes Lola not Mem oria Succinate 8-18 Lopez defined l 02:46: Félix Zuniga Trazodone 2020-0 Yes Lola 1-3 Memor ia [...] HCl 8-18 Lopez l 02:46: Félix 24 BusPIRone 2020-0 Yes Lola 1 tablet M emoria HCl 8-18 Lopez l 02:46: Jay 24 BusPIRone 2020-0 Yes Lola 1 tablet M emoria HCl 8-18 Lopez l 02:46: Jay 24 BusPIRone 2020-0 Yes Lola 1 tablet M emoria HCl 8-18 Lopez l 02:46: Jay 24 BusPIRone 2020-0 Yes Lola 1 tablet M emoria HCl 8-18 Lopez l 02:46: Jay 24 BusPIRone 2020-0 Yes Lola 1 tablet M emoria HCl 8-18 Lopez l 02:46: Félix 24 BusPIRone 2020-0 Yes Lola 1 tablet M [...] at bedtime l 00:00: Benztropine 2020-0 Yes Olla 1 tablet Memoria Mesylate 7-20 Lopez at [...] Lopez tablets at l 00:00: bedtime as Jay 00 needed Trazodone 2020-0 Yes Lola 1-3 Memor ia HCl 3-02 Lopez tablets at l 00:00: bedtime as Félix 00 needed Trazodone 2020-0 Yes Lola 1-3 Memor ia HCl 3-02 Lopez tablets at l 00:00: bedtime as Félix 00 needed Trazodone 2020-0 Yes Lola 1-3 Memor ia HCl 3-02 Lopez tablets at l 00:00: bedtime as Jay 00 needed Trazodone 2020-0 Yes Lola 1-3 Memor ia HCl 3-02 Lopez tablets at l 00:00: bedtime as Jay 00 needed Trazodone 2020-0 Yes Lola 1-3 Memor ia HCl 3-02 Lopez tablets at l 00:00: bedtime as Félix 00 needed Trazodone 2020-0 Yes Lola 1-3 Memor ia HCl 3-02 Lopez tablets at l 00:00: bedtime as Félix 00 needed Trazodone 2020-0 Yes Lola 1-3 Memor ia HCl 3-02 Lopez tablets at l 00:00: bedtime as Jay 00 needed Trazodone 2020-0 Yes Lola 1-3 Memor ia HCl 3-02 Lopez tablets at l 00:00: bedtime as Félix 00 needed Trazodone 2020-0 Yes Lola 1-3 Memor ia HCl 3-02 Lopez tablets at l 00:00: bedtime as Félix 00 needed Trazodone 2020-0 Yes Lola 1-3 Memor ia HCl 3-02 Lopez tablets at l 00:00: bedtime as Félix 00 needed Trazodone 2020-0 Yes Lola 1-3 Memor ia HCl 3-02 Lopez tablets at l 00:00: bedtime as Jay 00 needed Trazodone 2020-0 Yes Lola 1-3 Memor ia HCl 3-02 Lopez tablets at l 00:00: bedtime as Jay 00 needed Cholecalcif 2019-0 Yes [id number] 2000U Take 1 Mayra domenic 6-18 tablet [facility] (VITAMIN D) 00:00: (2,000 2000 units 00 units oral Tab total) by mouth daily Cholecalcif 2019-0 Yes [id number] 2000U Take 1 Mayra domenic 6-18 tablet [facility] (VITAMIN D) 00:00: (2,000 2000 units 00 units oral Tab total) by mouth daily Cholecalcif 2019-0 Yes [id number] 2000U Take 1 Mayra domenic 6-18 tablet [facility] (VITAMIN D) 00:00: (2,000 2000 units 00 units oral Tab total) by mouth daily Cholecalcif 2019-0 Yes [id number] 2000U Take 1 Mayra domenic 6-18 tablet [facility] (VITAMIN D) 00:00: (2,000 2000 units 00 units oral Tab total) by mouth daily Cholecalcif 2019-0 Yes [id number] 2000U Take 1 Mayra domenic 6-18 tablet [facility] (VITAMIN D) 00:00: (2,000 2000 units 00 units oral Tab total) by mouth daily Cholecalcif 2019-0 Yes [id number] 2000U Take 1 Mayra domenic 6-18 tablet [facility] (VITAMIN D) 00:00: (2,000 2000 units 00 units oral Tab total) by mouth daily Cholecalcif 2019-0 Yes [id number] 2000U Take 1 Mayra domenic 6-18 tablet [facility] (VITAMIN D) 00:00: (2,000 2000 units 00 units oral Tab total) by mouth daily Cholecalcif 2019-0 Yes [id number] 2000U Take 1 Mayra domenic 6-18 tablet [facility] (VITAMIN D) 00:00: (2,000 2000 units 00 units oral Tab total) by mouth daily Cholecalcif 2019-0 Yes [id number] 2000U Take 1 Mayra domenic 6-18 tablet [facility] (VITAMIN D) 00:00: (2,000 2000 units 00 units oral Tab total) by mouth daily Cholecalcif 2019-0 Yes [id number] 2000U Take 1 Mayra domenic 6-18 tablet [facility] (VITAMIN D) 00:00: (2,000 - 2000 units 00 units Externa oral Tab total) by l mouth daily Cholecalcif 2019-0 Yes [id number] 2000U Take 1 Mayra domenic 6-18 tablet [facility] (VITAMIN D) 00:00: (2,000 - 2000 units 00 units Externa oral Tab total) by l mouth daily Cholecalcif Yes [id number] 2000U Take 1 Mayra domenic 6-18 tablet [facility] (VITAMIN D) 00:00: (2,000 - 2000 units 00 units Externa oral Tab total) by l mouth daily Cholecalcif Yes [id number] 2000U Take 1 Mayra domenic 6-18 tablet [facility] (VITAMIN D) 00:00: (2,000 2000 units 00 units oral Tab total) by mouth daily Cholecalcif Yes [id number] 2000U Take 1 Mayra domenic 6-18 tablet [facility] (VITAMIN D) 00:00: (2,000 - 2000 units 00 units Externa oral Tab total) by l mouth daily Cholecalcif Yes [id number] 2000U Take 1 Mayra domenic 6-18 tablet [facility] (VITAMIN D) 00:00: (2,000 - 2000 units 00 units Externa oral Tab total) by l mouth daily Cholecalcif 2022- No [id number] 2000U Take 1 Mayra domenic 6-18 02-01 tablet [facility] (VITAMIN D) 00:00: 00:00 (2,000 - 2000 units 00 :00 units Externa oral Tab total) by l mouth daily ondansetron 2020- No 4mg Take [...] St -acetaminop 2-24 tablets by Frank candelaria (Infusion Resource) 00:00: mouth Medic al 10-325 mg 00 every 6 Center per tablet (six) hours as needed . HYDROcodone 2017-07 Yes pain 2{tbl} Take [address] [facility] [address] [facility] -acetaminop 2-24 tablets by Frank candelaria (Infusion Resource) 00:00: mouth Medic al 10-325 mg 00 every 6 Center per tablet (six) hours as needed . HYDROcodone 2017-07 Yes pain 2{tbl} Take [address] [facility] [address] [facility] -acetaminop 2-24 tablets by Frank candelaria (Infusion Resource) 00:00: mouth Medic al 10-325 mg 00 every 6 Center per tablet (six) hours as needed . HYDROcodone 2017-07 Yes pain 2{tbl} Take [address] [facility] [address] [facility] -acetaminop 2-24 tablets by Frank candelaria (Infusion Resource) 00:00: mouth Medic al 10-325 mg 00 every 6 Center per tablet (six) hours as needed . HYDROcodone 2017-07 Yes pain 2{tbl} Take [address] [facility] [address] [facility] -acetaminop 2-24 tablets by Frank candelaria (Infusion Resource) 00:00: mouth Medic al 10-325 mg 00 every 6 Center per tablet (six) hours as needed . HYDROcodone 2017-07 Yes pain 2{tbl} Take [address] [facility] [address] [facility] -acetaminop 2-24 tablets by Frank candelaria (Infusion Resource) 00:00: mouth Medic al 10-325 mg 00 every 6 Center per tablet (six) hours as needed . HYDROcodone 2017-07 Yes pain 2{tbl} Take [address] [facility] -acetaminop 2-24 tablets by Frank candelaria (Infusion Resource) 00:00: mouth Medic al 10-325 mg 00 every 6 Center per tablet (six) hours as needed . tiZANidine 2017-07- No TAKE TWO [facility] (ZANAFLEX) 2-17 04-24 TABLETS BY Frank colemans 4 MG tablet 00:00: 00:00 MOUTH Medi gabrielle 00 :00 EVERY Center NIGHT AT BEDTIME rizatriptan 2018-0 Yes 10mg Take [address] [facility] (MAXALT) 10 5-15 by mouth . Frank kes MG tablet 00:00: Medical 00 Center SUMAtriptan 2017- Yes 100mg Take [address] [facility] (IMITREX) 5-15 [facility] 00:[facility]: mouth . Medical tablet 00 [place] rizatriptan 2018-0 Yes 10mg Take [address] [facility] (MAXALT) 10 5-15 by mouth . Frank kes MG tablet 00:00: Medical 00 [place] SUMAtriptan 2018-0 Yes 100mg Take [address] (IMITREX) 5-15 [facility] MG 00:00: mouth . Medical tablet 00 [place] rizatriptan 2017-0 Yes 10mg Take [address] [facility] (MAXALT) 10 5-15 by mouth . Frank kes MG tablet 00:00: Medical 00 [place] SUMAtriptan 2017-0 Yes 100mg Take [address] (IMITREX) 5-15 [facility] MG 00:00: mouth . Medical tablet 00 [place] rizatriptan 0 Yes 10mg Take [address] [facility] (MAXALT) 10 5-15 by mouth . Frank kes MG tablet 00:00: Medical [address] [place] [address] SUMAtriptan 2017-0 Yes 100mg Take [address] (IMITREX) 5-15 [facility] MG 00:00: mouth . Medical tablet 00 [place] rizatriptan 0 Yes 10mg Take [address] [facility] (MAXALT) 10 5-15 by mouth . Frank kes MG tablet 00:00: Medical 00 [place] SUMAtriptan 2017-0 Yes 100mg Take [address] (IMITREX) 5-15 [facility] MG 00:00: mouth . Medical tablet 00 [place] rizatriptan 2017-0 Yes 10mg Take [address] [facility] (MAXALT) 10 5-15 by mouth . Frank kes MG tablet 00:00: Medical 00 [place] SUMAtriptan 2018-0 Yes 100mg Take [address] (IMITREX) 5-15 [facility] MG 00:00: mouth . Medical tablet 00 [place] rizatriptan 2017-0 Yes 10mg Take [address] [facility] (MAXALT) 10 5-15 by mouth . Frank kes MG tablet 00:00: Medical 00 [place] SUMAtriptan 2017-0 Yes 100mg Take [address] (IMITREX) 5-15 [facility] MG 00:00: mouth . Medical tablet 00 [place] Glucose 20160 Yes [id number] Use as Mayra Blood (ONE 02-03 instructed Sey bold TOUCH ULTRA 00:00: 1 time - TEST) in daily Externa vitro Strip l Glucose 2015- Yes [id number] Use as Mayra Blood (ONE 02-03 instructed Sey bold TOUCH ULTRA 00:00: 1 time - TEST) in daily Externa vitro Strip l Glucose 2015- Yes [id number] Use as Mayra Blood (ONE 02-03 instructed Sey bold TOUCH ULTRA 00:00: 1 time - TEST) in daily Externa vitro Strip l Glucose Yes [id number] Use as Mayra Blood (ONE 02-03 instructed Sey bold TOUCH ULTRA 00:00: 1 time - TEST) in daily Externa vitro Strip l Glucose Yes [id number] Use as Mayra Blood (ONE 02-03 instructed Sey bold TOUCH ULTRA 00:00: 1 time - TEST) in daily Externa vitro Strip l Glucose 2015- Yes [id number] Use as Mayra Blood (ONE 02-03 instructed Sey bold TOUCH ULTRA 00:00: 1 time TEST) in daily vitro Strip Glucose Yes [id number] Use as Mayra Blood (ONE 02-03 instructed Sey bold TOUCH ULTRA 00:00: 1 time TEST) in daily vitro Strip Glucose 2015- Yes [id number] Use as Mayra Blood (ONE 02-03 instructed Sey bold TOUCH ULTRA 00:00: 1 time TEST) in daily vitro Strip Glucose 2015- Yes [id number] Use as Mayra Blood (ONE 02-03 instructed Sey bold TOUCH ULTRA 00:00: 1 time TEST) in daily vitro Strip Glucose 2015- Yes [id number] Use as Mayra Blood (ONE 02-03 instructed Sey bold TOUCH ULTRA 00:00: 1 time TEST) in daily vitro Strip Glucose 2015- Yes [id number] Use as Mayra Blood (ONE 02-03 instructed Sey bold TOUCH ULTRA 00:00: 1 time TEST) in daily vitro Strip Glucose 2015- Yes [id number] Use as Mayra Blood (ONE 02-03 instructed Sey bold TOUCH ULTRA 00:00: 1 time TEST) in daily vitro Strip Glucose 2015- Yes [id number] Use as Mayra Blood (ONE 02-03 instructed Sey bold TOUCH ULTRA 00:00: 1 time TEST) in daily vitro Strip Glucose Yes [id number] Use as Mayra Blood (ONE 02-03 instructed Sey bold TOUCH ULTRA 00:00: 1 time TEST) in daily vitro Strip Glucose Yes [id number] Use as Mayra Blood (ONE 02-03 instructed Sey bold TOUCH ULTRA 00:00: 1 time - TEST) in daily Externa vitro Strip l Glucose Yes [id number] Use as Mayra Blood (ONE 02-03 instructed Sey bold TOUCH ULTRA 00:00: 1 time - TEST) in daily Externa vitro Strip l Glucose Yes [id number] Use as Mayra Blood (ONE 02-03 instructed Sey bold TOUCH ULTRA 00:00: 1 time - TEST) in daily Externa vitro Strip l Glucose Yes [id number] Use as Mayra Blood (ONE 02-03 instructed Sey bold TOUCH ULTRA 00:00: 1 time TEST) in daily vitro Strip Glucose Yes [id number] Use as Mayra Blood (ONE 02-03 instructed Sey bold TOUCH ULTRA 00:00: 1 time - TEST) in daily Externa vitro Strip l Glucose Yes [id number] Use as Mayra Blood (ONE 02-03 instructed Sey bold TOUCH ULTRA 00:00: 1 time - TEST) in daily Externa vitro Strip l Glucose Yes [id number] Use as Mayra Blood (ONE 02-03 instructed Sey bold TOUCH ULTRA 00:00: 1 time - TEST) in daily Externa vitro Strip l ONE TOUCH Yes [id number] Use as Inga ey ULTRASOFT 5-22 instructed Seyb old LANCETS 00:00: 3 times d - does not 00 aily Externa apply Misc l ONE TOUCH Yes [id number] Use as Inga ey ULTRASOFT 5-22 instructed Seyb old LANCETS 00:00: 3 times d - does not 00 aily Externa apply Misc l ONE TOUCH Yes [id number] Use as Inga ey ULTRASOFT 5-22 instructed Seyb old LANCETS 00:00: 3 times d - does not 00 aily Externa apply Misc l ONE TOUCH Yes [id number] Use as Inga ey ULTRASOFT 5-22 instructed Seyb old LANCETS 00:00: 3 times d - does not 00 aily Externa apply Misc l ONE TOUCH Yes [id number] Use as Inga ey ULTRASOFT 5-22 instructed Seyb old LANCETS 00:00: 3 times d - does not 00 aily Externa apply Misc l ONE TOUCH Yes [id number] Use as Inga ey ULTRASOFT 5-22 instructed Seyb old LANCETS 00:00: 3 times d does not 00 aily apply Misc ONE TOUCH Yes [id number] Use as Inga ey ULTRASOFT 5-22 instructed Seyb old LANCETS 00:00: 3 times d does not 00 aily apply Misc ONE TOUCH Yes [id number] Use as Inag ey ULTRASOFT 5-22 instructed Seyb old LANCETS 00:00: 3 times d does not 00 aily apply Misc ONE TOUCH Yes [id number] Use as Inga ey ULTRASOFT 5-22 instructed Seyb old LANCETS 00:00: 3 times d does not 00 aily apply Misc ONE TOUCH Yes [id number] Use as Inga ey ULTRASOFT 5-22 instructed Seyb old LANCETS 00:00: 3 times d does not 00 aily apply Misc ONE TOUCH Yes [id number] Use as Inga ey ULTRASOFT 5-22 instructed Seyb old LANCETS 00:00: 3 times d does not 00 aily apply Misc ONE TOUCH Yes [id number] Use as Inga ey ULTRASOFT 5-22 instructed Seyb old LANCETS 00:00: 3 times d does not 00 aily apply Misc ONE TOUCH Yes [id number] Use as Inga ey ULTRASOFT 5-22 instructed Seyb old LANCETS 00:00: 3 times d does not 00 aily apply Misc ONE TOUCH Yes [id number] Use as Inga ey ULTRASOFT 5-22 instructed Seyb old LANCETS 00:00: 3 times d does not 00 aily apply Misc ONE TOUCH Yes [id number] Use as Inga ey ULTRASOFT 5-22 instructed Seyb old LANCETS 00:00: 3 times d - does not 00 aily Externa apply Misc l ONE TOUCH Yes [id number] Use as Inga ey ULTRASOFT 5-22 instructed Seyb old LANCETS 00:00: 3 times d - does not 00 aily Externa apply Misc l ONE TOUCH Yes [id number] Use as Inga ey ULTRASOFT 5-22 instructed Seyb old LANCETS 00:00: 3 times d - does not 00 aily Externa apply Misc l ONE TOUCH Yes [id number] Use as Inga ey ULTRASOFT 5-22 instructed Seyb old LANCETS 00:00: 3 times d does not 00 aily apply Misc ONE TOUCH Yes [id number] Use as Inga ey ULTRASOFT 5-22 instructed Seyb old LANCETS 00:00: 3 times d - does not 00 aily Externa apply Misc l ONE TOUCH Yes [id number] Use as Inga ey ULTRASOFT 5-22 instructed Seyb old LANCETS 00:00: 3 times d - does not 00 aily Externa apply Misc l ONE TOUCH Yes [id number] Use as Inga ey ULTRASOFT 5-22 instructed Seyb old LANCETS 00:00: 3 times d - does not 00 aily Externa apply Misc l Immunizations Ordered Immunization Filled Date Status Comments Sour ce Name Immunization Name Influenza Virus 2022-05-28 Completed Mayra Se ybold Vaccine, age 6 months 00:00:00 - E xternal and up COVID-19 BIVALENT 2022-05-28 Completed Mayra Seybold BOOSTER VACCINE 00:00:00 - Externa l MODERNA Influenza vaccine, 2022-05-28 Completed Mayra Seybold quadrivalent, 00:00:00 - External adjuvanted Influenza Virus 2022-05-28 Completed Mayra Doe ybold Vaccine, age 6 months 00:00:00 - E xternal and up COVID-19 BIVALENT 2022-05-28 Completed Mayra Seybold BOOSTER VACCINE 00:00:00 - Externa l MODERNA Influenza vaccine, 2022-05-28 Completed Mayra Seybold quadrivalent, 00:00:00 - External adjuvanted Influenza Virus 2022-05-28 Completed Mayra Se ybold Vaccine, age 6 months 00:00:00 - E xternal and up COVID-19 BIVALENT 2022-05-28 Completed Mayra Seybold VACCINE MODERNA 00:00:00 - Externa l Influenza vaccine, 2022-05-28 Completed Mayra Seybold quadrivalent, 00:00:00 - External adjuvanted Influenza Virus 2022-05-28 Completed Mayra Se ybold Vaccine, age 6 months 00:00:00 - E xternal and up COVID-19 BIVALENT 2022-05-28 Completed Mayra Seybold VACCINE MODERNA 00:00:00 - Externa l Influenza vaccine, 2022-05-28 Completed Mayra Seybold quadrivalent, 00:00:00 - External adjuvanted Influenza Virus 2022-05-28 Completed Mayra Se ybold Vaccine, age 6 months 00:00:00 - E xternal and up COVID-19 BIVALENT 2022-05-28 Completed Mayra Seybold BOOSTER VACCINE 00:00:00 - Externa l MODERNA Influenza vaccine, 2022-05-28 Completed Mayra Seybold quadrivalent, 00:00:00 - External adjuvanted Influenza Virus 2022-05-28 Completed Mayra Se ybold Vaccine, age 6 months 00:00:00 - E xternal and up COVID-19 BIVALENT 2022-05-28 Completed Mayra Seybold BOOSTER VACCINE 00:00:00 - Externa l MODERNA Influenza vaccine, 2022-05-28 Completed Mayra Seybold quadrivalent, 00:00:00 - External adjuvanted Influenza Virus 2022-05-28 Completed Mayra Se ybold Vaccine, age 6 months 00:00:00 - E xternal and up COVID-19 BIVALENT 2022-05-28 Completed Mayra Seybold BOOSTER VACCINE 00:00:00 - Externa l MODERNA Influenza vaccine, 2022-05-28 Completed Mayra Seybold quadrivalent, 00:00:00 - External adjuvanted Influenza Virus 2021-05-12 Completed Mayra Se ybold Vaccine, 00:00:00 - External Quadrivalent, High Dose, Age 65 And Up Influenza Virus 2021-05-12 Completed Mayra Se ybold Vaccine, 00:00:00 - External Quadrivalent, High Dose, Age 65 And Up Influenza Virus 2021-05-12 Completed Mayra Se ybold Vaccine, 00:00:00 - External Quadrivalent, High Dose, Age 65 And Up Influenza Virus 2021-05-12 Completed Mayra Se ybold Vaccine, 00:00:00 - External Quadrivalent, High Dose, Age 65 And Up Influenza Virus 2021-05-12 Completed Mayra Se ybold Vaccine, 00:00:00 Quadrivalent, High Dose, Age 65 And Up Influenza Virus 2021-05-12 Completed Mayra Se ybold Vaccine, 00:00:00 Quadrivalent, High Dose, Age 65 And Up Influenza Virus 2021-05-12 Completed Mayra Se ybold Vaccine, 00:00:00 Quadrivalent, High Dose, Age 65 And Up Influenza Virus 2021-05-12 Completed Mayra Se ybold Vaccine, 00:00:00 Quadrivalent, High Dose, Age 65 And Up Influenza Virus 2021-05-12 Completed Mayra Se ybold Vaccine, 00:00:00 Quadrivalent, High Dose, Age 65 And Up Influenza Virus 2021-05-12 Completed Mayra Se ybold Vaccine, 00:00:00 Quadrivalent, High Dose, Age 65 And Up Influenza Virus 2021-05-12 Completed Mayra Se ybold Vaccine, 00:00:00 Quadrivalent, High Dose, Age 65 And Up Influenza Virus 2021-05-12 Completed Mayra Se ybold Vaccine, 00:00:00 - External Quadrivalent, High Dose, Age 65 And Up Influenza Virus 2021-05-12 Completed Mayra Se ybold Vaccine, 00:00:00 - External Quadrivalent, High Dose, Age 65 And Up Influenza Virus 2021-05-12 Completed Mayra Se ybold Vaccine, 00:00:00 - External Quadrivalent, High Dose, Age 65 And Up Influenza Virus 2021-05-12 Completed Mayra Se ybold Vaccine, 00:00:00 - External Quadrivalent, High Dose, Age 65 And Up Influenza Virus 2021-05-12 Completed Mayra Se ybold Vaccine, 00:00:00 - External Quadrivalent, High Dose, Age 65 And Up Pneumococcal Vaccine, 2020-12-01 Completed Matt sey Seybold Polysaccharide 00:00:00 - External Shingles IM 2020-12-01 Completed Mayra Seybol d (Shingrix) 00:00:00 - External Pneumococcal Vaccine, 2020-12-01 Completed Matt sey Seybold Polysaccharide 00:00:00 - External Shingles IM 2020-12-01 Completed Mayra Seybol d (Shingrix) 00:00:00 - External Pneumococcal Vaccine, 2020-12-01 Completed Matt sey Seybold Polysaccharide 00:00:00 - External Shingles IM 2020-12-01 Completed Mayra Seybol d (Shingrix) 00:00:00 - External Pneumococcal Vaccine, 2020-12-01 Completed Matt sey Seybold Polysaccharide 00:00:00 - External Shingles IM 2020-12-01 Completed Mayra Seybol d (Shingrix) 00:00:00 - External Pneumococcal Vaccine, 2020-12-01 Completed Matt sey Seybold Polysaccharide 00:00:00 Shingles IM 2020-12-01 Completed Mayra Seybol d (Shingrix) 00:00:00 Pneumococcal Vaccine, 2020-12-01 Completed Matt sey Seybold Polysaccharide 00:00:00 Shingles IM 2020-12-01 Completed Mayra Seybol d (Shingrix) 00:00:00 Pneumococcal Vaccine, 2020-12-01 Completed Matt sey Seybold Polysaccharide 00:00:00 Shingles IM 2020-12-01 Completed Mayra Seybol d (Shingrix) 00:00:00 Pneumococcal Vaccine, 2020-12-01 Completed Matt sey Seybold Polysaccharide 00:00:00 Shingles IM 2020-12-01 Completed Mayra Seybol d (Shingrix) 00:00:00 Pneumococcal Vaccine, 2020-12-01 Completed Matt sey Seybold Polysaccharide 00:00:00 Shingles IM 2020-12-01 Completed Mayra Seybol d (Shingrix) 00:00:00 Pneumococcal Vaccine, 2020-12-01 Completed Matt sey Seybold Polysaccharide 00:00:00 Shingles IM 2020-12-01 Completed Mayra Seybol d (Shingrix) 00:00:00 Pneumococcal Vaccine, 2020-12-01 Completed Matt sey Seybold Polysaccharide 00:00:00 Shingles IM 2020-12-01 Completed Mayra Seybol d (Shingrix) 00:00:00 Pneumococcal Vaccine, 2020-12-01 Completed Matt sey Seybold Polysaccharide 00:00:00 Shingles IM 2020-12-01 Completed Mayra Seybol d (Shingrix) 00:00:00 Pneumococcal Vaccine, 2020-12-01 Completed Matt sey Seybold Polysaccharide 00:00:00 Shingles IM 2020-12-01 Completed Mayra Seybol d (Shingrix) 00:00:00 Pneumococcal Vaccine, 2020-12-01 Completed Matt sey Seybold Polysaccharide 00:00:00 Shingles IM 2020-12-01 Completed Mayra Seybol d (Shingrix) 00:00:00 Pneumococcal Vaccine, 2020-12-01 Completed Matt sey Seybold Polysaccharide 00:00:00 - External Shingles IM 2020-12-01 Completed Mayra Seybol d (Shingrix) 00:00:00 - External Pneumococcal Vaccine, 2020-12-01 Completed Matt sey Seybold Polysaccharide 00:00:00 - External Shingles IM 2020-12-01 Completed Mayra Seybol d (Shingrix) 00:00:00 - External Pneumococcal Vaccine, 2020-12-01 Completed Matt sey Seybold Polysaccharide 00:00:00 - External Shingles IM 2020-12-01 Completed Mayra Seybol d (Shingrix) 00:00:00 - External Pneumococcal Vaccine, 2020-12-01 Completed Matt sey Seybold Polysaccharide 00:00:00 - External Shingles IM 2020-12-01 Completed Mayra Seybol d (Shingrix) 00:00:00 - External Pneumococcal Vaccine, 2020-12-01 Completed Matt sey Seybold Polysaccharide 00:00:00 - External Shingles IM 2020-12-01 Completed Mayra Seybol d (Shingrix) 00:00:00 - External Covid-19 Vaccine 2020-10-08 Completed Mayra luna Moderna (Spikevax), 00:00:00 - Ext ernal Mrna-lnp, Spencer Protein, Pf Covid-19 Vaccine 2020-10-08 Completed Mayra luna Moderna (Spikevax), 00:00:00 - Ext ernal Mrna-lnp, Spencer Protein, Pf Covid-19 Vaccine 2020-10-08 Completed Mayra luna Moderna (Spikevax), 00:00:00 - Ext ernal Mrna-lnp, Spencer Protein, Pf Covid-19 Vaccine 2020-10-08 Completed Mayra luna Moderna (Spikevax), 00:00:00 - Ext ernal Mrna-lnp, Spencer Protein, Pf Covid-19 Vaccine 2020-10-08 Completed Mayra luna (Moderna), [...] 2020-10-08 Completed Mayra luna Moderna (Spikevax), 00:00:00 - Ext ernal Mrna-lnp, Spencer Protein, Pf Covid-19 Vaccine 2020-10-08 Completed Mayra luna Moderna (Spikevax), 00:00:00 - Ext ernal Mrna-lnp, Spencer Protein, Pf Covid-19 Vaccine 2020-10-08 Completed Mayra luna Moderna (Spikevax), 00:00:00 - Ext ernal Mrna-lnp, Spencer Protein, Pf Covid-19 Vaccine 2020-10-08 Completed Mayra luna Moderna (Spikevax), 00:00:00 - Ext ernal Mrna-lnp, Spencer Protein, Pf Covid-19 Vaccine 2020-10-08 Completed Mayra luna Moderna (Spikevax), 00:00:00 - Ext ernal Mrna-lnp, Spencer Protein, Pf Covid-19 Vaccine 2020-09-10 Completed Mayra luna Moderna (Spikevax), 00:00:00 - Ext ernal Mrna-lnp, Spencer Protein, Pf Covid-19 Vaccine 2020-09-10 Completed Mayra luna Moderna (Spikevax), 00:00:00 - Ext ernal Mrna-lnp, Spencer Protein, Pf Covid-19 Vaccine 2020-09-10 Completed Mayra luna Moderna (Spikevax), 00:00:00 - Ext ernal Mrna-lnp, Spencer Protein, Pf Covid-19 Vaccine 2020-09-10 Completed Mayra luna (Moderna), Mrna-lnp, 00:00:00 Spencer Protein, Pf, 100 Mcg/0.5ml,IM Covid-19 Vaccine 2020-09-10 Completed Mayra luna (Moderna), Mrna-lnp, 00:00:00 Spencer Protein, Pf, 100 Mcg/0.5ml,IM Covid-19 Vaccine 2020-09-10 Completed Mayra chaudhryld (Moderna), Mrna-lnp, 00:00:00 Spencer Protein, Pf, 100 Mcg/0.5ml,IM Covid-19 Vaccine 2020-09-10 Completed Mayra chaudhryld (Moderna), Mrna-lnp, 00:00:00 Spencer Protein, Pf, 100 Mcg/0.5ml,IM Covid-19 Vaccine 2020-09-10 Completed Mayra chaudhryld (Moderna), Mrna-lnp, 00:00:00 Spencer Protein, Pf, 100 Mcg/0.5ml,IM Covid-19 Vaccine 2020-09-10 Completed Mayra luna Moderna [...] 2020-09-10 Completed Mayra luna Moderna (Spikevax), 00:00:00 - Ext ernal Mrna-lnp, Spencer Protein, Pf Covid-19 Vaccine 2020-09-10 Completed Mayra luna Moderna (Spikevax), 00:00:00 - Ext ernal Mrna-lnp, Spencer Protein, Pf Covid-19 Vaccine 2020-09-10 Completed Mayra luna Moderna (Spikevax), 00:00:00 - Ext ernal Mrna-lnp, Spencer Protein, Pf Covid-19 Vaccine 2020-09-10 Completed Mayra Hernandeza (Spikevax), 00:00:00 - Ext ernal Mrna-lnp, Spencer Protein, Pf Covid-19 Vaccine 2020-09-10 Completed Mayra luna Moderna (Spikevax), 00:00:00 - Ext ernal Mrna-lnp, Spencer Protein, Pf Covid-19 Vaccine 2020-09-10 Completed Mayra luna Moderna (Spikevax), 00:00:00 - Ext ernal Mrna-lnp, Spencer Protein, Pf Influenza Virus 2020-03-17 Completed Mayra Doe ybold Vaccine, 00:00:00 - External Quadrivalent, High Dose, Age 65 And Up Influenza Virus 2020-03-17 Completed Mayra Se ybold Vaccine, 00:00:00 - External Quadrivalent, High Dose, Age 65 And Up Influenza Virus 2020-03-17 Completed Mayra Se ybold Vaccine, 00:00:00 - External Quadrivalent, High Dose, Age 65 And Up Influenza Virus 2020-03-17 Completed Mayra Se ybold Vaccine, 00:00:00 Quadrivalent, High Dose, Age 65 And Up Influenza Virus 2020-03-17 Completed Mayra Se ybold Vaccine, 00:00:00 Quadrivalent, High Dose, Age 65 And Up Influenza Virus 2020-03-17 Completed Mayra Se ybold Vaccine, 00:00:00 Quadrivalent, High Dose, Age 65 And Up Influenza Virus 2020-03-17 Completed Mayra Se ybold Vaccine, 00:00:00 Quadrivalent, High Dose, Age 65 And Up Influenza Virus 2020-03-17 Completed Mayra Se ybold Vaccine, 00:00:00 Quadrivalent, High Dose, Age 65 And Up Influenza Virus 2020-03-17 Completed Mayra Se ybold Vaccine, 00:00:00 Quadrivalent, High Dose, Age 65 And Up Influenza Virus 2020-03-17 Completed Mayra Se ybold Vaccine, 00:00:00 Quadrivalent, High Dose, Age 65 And Up Influenza Virus 2020-03-17 Completed Mayra Se ybold Vaccine, 00:00:00 Quadrivalent, High Dose, Age 65 And Up Influenza Virus 2020-03-17 Completed Mayra Se ybold Vaccine, 00:00:00 Quadrivalent, High Dose, Age 65 And Up Influenza Virus 2020-03-17 Completed Mayra Se ybold Vaccine, 00:00:00 Quadrivalent, High Dose, Age 65 And Up Influenza Virus 2020-03-17 Completed Mayra Se ybold Vaccine, 00:00:00 - External Quadrivalent, High Dose, Age 65 And Up Influenza Virus 2020-03-17 Completed Mayra Se ybold Vaccine, 00:00:00 - External Quadrivalent, High Dose, Age 65 And Up Influenza Virus 2020-03-17 Completed Mayra Se ybold Vaccine, 00:00:00 - External Quadrivalent, High Dose, Age 65 And Up Influenza Virus 2020-03-17 Completed Mayra Se ybold Vaccine, 00:00:00 - External Quadrivalent, High Dose, Age 65 And Up Influenza Virus 2020-03-17 Completed Mayra Se ybold Vaccine, 00:00:00 - External Quadrivalent, High Dose, Age 65 And Up Influenza Virus 2020-03-17 Completed Mayra Se ybold Vaccine, 00:00:00 - External Quadrivalent, High Dose, Age 65 And Up Influenza Virus 2019-06-12 Completed Mayra Se ybold Vaccine, age 6 months 00:00:00 - E xternal and up Influenza Virus 2019-06-12 Completed Mayra Se ybold Vaccine, age 6 months 00:00:00 - E xternal and up Influenza Virus 2019-06-12 Completed Mayra Se ybold Vaccine, age 6 months 00:00:00 and up Influenza Virus 2019-06-12 Completed Mayra Se ybold Vaccine, age 6 months 00:00:00 - E xternal and up Influenza Virus 2019-06-12 Completed Mayra [...] Se ybold Vaccine, age 6 months 00:00:00 - E xternal and up Influenza Virus 2019-06-12 Completed Mayra Se ybold Vaccine, age 6 months 00:00:00 - E xternal and up Influenza Virus 2019-06-12 Completed Mayra Se ybold Vaccine, age 6 months 00:00:00 - E xternal and up Influenza Virus 2019-06-12 Completed Mayra Se ybold Vaccine, age 6 months 00:00:00 - E xternal and up Influenza Virus 2019-06-12 Completed Mayra Se ybold Vaccine, age 6 months 00:00:00 - E xternal and up Influenza Virus 2019-06-12 Completed Mayra Se ybold Vaccine, age 6 months 00:00:00 - E xternal and up Influenza Virus 2017-04-19 Completed Mayra Se ybold Vaccine, age 6 months 00:00:00 - E xternal and up Influenza Virus 2017-04-19 Completed Mayra Se ybold Vaccine, age 6 months 00:00:00 - E xternal and up Influenza Virus 2017-04-19 Completed Mayra Se ybold Vaccine, age 6 months 00:00:00 and up Influenza Virus 2017-04-19 Completed Mayra Se ybold Vaccine, age 6 months 00:00:00 - E xternal and up Influenza Virus 2017-04-19 Completed Mayra [...] Se ybold Vaccine, age 6 months 00:00:00 - E xternal and up Influenza Virus 2017-04-19 Completed Mayra Se ybold Vaccine, age 6 months 00:00:00 - E xternal and up Influenza Virus 2017-04-19 Completed Mayra Se ybold Vaccine, age 6 months 00:00:00 - E xternal and up Influenza Virus 2017-04-19 Completed Mayra Se ybold Vaccine, age 6 months 00:00:00 - E xternal and up Influenza Virus 2017-04-19 Completed Mayra Se ybold Vaccine, age 6 months 00:00:00 - E xternal and up Influenza Virus 2017-04-19 Completed Mayra Se ybold Vaccine, age 6 months 00:00:00 - E xternal and up Influenza Virus 2016-04-29 Completed Mayra Se ybold Vaccine, age 6 months 00:00:00 - E xternal and up Influenza Virus 2016-04-29 Completed Mayra Se ybold Vaccine, age 6 months 00:00:00 - E xternal and up Influenza Virus 2016-04-29 Completed Mayra Se ybold Vaccine, age 6 months 00:00:00 and up Influenza Virus 2016-04-29 Completed Mayra Se ybold Vaccine, age 6 months 00:00:00 - E xternal and up Influenza Virus 2016-04-29 Completed Mayra [...] Se ybold Vaccine, age 6 months 00:00:00 - E xternal and up Influenza Virus 2016-04-29 Completed Mayra Se ybold Vaccine, age 6 months 00:00:00 - E xternal and up Influenza Virus 2016-04-29 Completed Mayra Se ybold Vaccine, age 6 months 00:00:00 - E xternal and up Influenza Virus 2016-04-29 Completed Mayra Se ybold Vaccine, age 6 months 00:00:00 - E xternal and up Influenza Virus 2016-04-29 Completed Mayra Se ybold Vaccine, age 6 months 00:00:00 - E xternal and up Influenza Virus 2016-04-29 Completed Mayra Se ybold Vaccine, age 6 months 00:00:00 - E xternal and up Influenza Virus 2015-04-23 Completed Mayra Se ybold Vaccine, age 6 months 00:00:00 - E xternal and up Influenza Virus 2015-04-23 Completed Mayra Se ybold Vaccine, age 6 months 00:00:00 - E xternal and up Influenza Virus 2015-04-23 Completed Mayra Se ybold Vaccine, age 6 months 00:00:00 and up Influenza Virus 2015-04-23 Completed Mayra Se ybold Vaccine, age 6 months 00:00:00 - E xternal and up Influenza Virus 2015-04-23 Completed Mayra [...] Se ybold Vaccine, age 6 months 00:00:00 - E xternal and up Influenza Virus 2015-04-23 Completed Mayra Se ybold Vaccine, age 6 months 00:00:00 - E xternal and up Influenza Virus 2015-04-23 Completed Mayra Se ybold Vaccine, age 6 months 00:00:00 - E xternal and up Influenza Virus 2015-04-23 Completed Myara Se ybold Vaccine, age 6 months 00:00:00 - E xternal and up Influenza Virus 2015-04-23 Completed Mayra Se ybold Vaccine, age 6 months 00:00:00 - E xternal and up Influenza Virus 2015-04-23 Completed Mayra Se ybold Vaccine, age 6 months 00:00:00 - E xternal and up Tdap- (Boostrix, 2015-02-10 Completed Mayra S eybold Adacel) 00:00:00 - External Tdap- (Boostrix, 2015-02-10 Completed Mayra S eybold Adacel) 00:00:00 - External Tdap- (Boostrix, 2015-02-10 Completed Mayra S eybold Adacel) 00:00:00 Tdap- (Boostrix, 2015-02-10 Completed Mayra S eybold Adacel) 00:00:00 - External Tdap- (Boostrix, 2015-02-10 Completed Mayra S eybold [...] 2015-02-10 Completed Mayra S eybold Adacel) 00:00:00 - External Tdap- (Boostrix, 2015-02-10 Completed Mayra S eybold Adacel) 00:00:00 - External Tdap- (Boostrix, 2015-02-10 Completed Mayra S eybold Adacel) 00:00:00 - External Tdap- (Boostrix, 2015-02-10 Completed Mayra S eybold Adacel) 00:00:00 - External Tdap- (Boostrix, 2015-02-10 Completed Mayra S eybold Adacel) 00:00:00 - External Tdap- (Boostrix, 2015-02-10 Completed Mayra S eybold Adacel) 00:00:00 - External Influenza Virus 2014-04-30 Completed Mayra Se ybold Vaccine, age 6 months 00:00:00 - E xternal and up Influenza Virus 2014-04-30 Completed Mayra Se ybold Vaccine, age 6 months 00:00:00 and up Influenza Virus 2014-04-30 Completed Mayra Se ybold Vaccine, age 6 months 00:00:00 - E xternal and up Influenza Virus 2014-04-30 Completed Mayra Se ybold Vaccine, age 6 months 00:00:00 - E xternal and up Influenza Virus 2014-04-30 Completed Mayra [...] Se ybold Vaccine, age 6 months 00:00:00 - E xternal and up Influenza Virus 2014-04-30 Completed Mayra Se ybold Vaccine, age 6 months 00:00:00 - E xternal and up Influenza Virus 2014-04-30 Completed Mayra Se ybold Vaccine, age 6 months 00:00:00 - E xternal and up Influenza Virus 2014-04-30 Completed Mayra Se ybold Vaccine, age 6 months 00:00:00 - E xternal and up Influenza Virus 2014-04-30 Completed Mayra Se ybold Vaccine, age 6 months 00:00:00 - E xternal and up Influenza Virus 2014-04-30 Completed Mayra Se ybold Vaccine, age 6 months 00:00:00 - E xternal and up Shingles 2013-07-10 Completed Mayra Seybol d (Zostavax) 00:00:00 - External Shingles SQ 2013-07-10 Completed Mayra Seybol d (Zostavax) 00:00:00 Shingles SQ 2013-07-10 Completed Mayra Seybol d (Zostavax) 00:00:00 - External Shingles SQ 2013-07-10 Completed Mayra Seybol d (Zostavax) 00:00:00 - External Shingles SQ 2013-07-10 Completed Mayra Seybol d (Zostavax) 00:00:00 Shingles SQ 2013-07-10 Completed Mayra Seybol d (Zostavax) 00:00:00 Shingles SQ 2013-07-10 Completed Mayra Seybol d (Zostavax) 00:00:00 Shingles SQ 2013-07-10 Completed Mayra Seybol d (Zostavax) 00:00:00 Shingles SQ 2013-07-10 Completed Mayra Seybol d (Zostavax) 00:00:00 Shingles SQ 2013-07-10 Completed Mayra Seybol d (Zostavax) 00:00:00 Shingles SQ 2013-07-10 Completed Mayra Seybol d (Zostavax) 00:00:00 Shingles SQ 2013-07-10 Completed Mayra Seybol d (Zostavax) 00:00:00 Shingles SQ 2013-07-10 Completed Mayra Seybol d (Zostavax) 00:00:00 Shingles SQ 2013-07-10 Completed Mayra Seybol d (Zostavax) 00:00:00 - External Shingles SQ 2013-07-10 Completed Mayra Seybol d (Zostavax) 00:00:00 - External Shingles SQ 2013-07-10 Completed Mayra Seybol d (Zostavax) 00:00:00 - External Shingles SQ 2013-07-10 Completed Mayra Seybol d (Zostavax) 00:00:00 - External Shingles SQ 2013-07-10 Completed Mayra Seybol d (Zostavax) 00:00:00 - External Shingles SQ 2013-07-10 Completed Mayra Seybol d (Zostavax) 00:00:00 - External Influenza Virus 2013-05-07 Completed Mayra Se ybold Vaccine, age 6 months 00:00:00 - E xternal and up Influenza Virus 2013-05-07 Completed Mayra Se ybold Vaccine, age 6 months 00:00:00 and up Influenza Virus 2013-05-07 Completed Mayra Se ybold Vaccine, age 6 months 00:00:00 - E xternal and up Influenza Virus 2013-05-07 Completed Mayra Se ybold Vaccine, age 6 months 00:00:00 - E xternal and up Influenza Virus 2013-05-07 Completed Mayra [...] Se ybold Vaccine, age 6 months 00:00:00 - E xternal and up Influenza Virus 2013-05-07 Completed Mayra Se ybold Vaccine, age 6 months 00:00:00 - E xternal and up Influenza Virus 2013-05-07 Completed Mayra Se ybold Vaccine, age 6 months 00:00:00 - E xternal and up Influenza Virus 2013-05-07 Completed Mayra Se ybold Vaccine, age 6 months 00:00:00 - E xternal and up Influenza Virus 2013-05-07 Completed Mayra Se ybold Vaccine, age 6 months 00:00:00 - E xternal and up Influenza Virus 2013-05-07 Completed Mayra Se ybold Vaccine, age 6 months 00:00:00 - E xternal and up Pneumococcal Vaccine, 2012-03-01 Completed Matt sey Seybold Polysaccharide 00:00:00 - External Pneumococcal Vaccine, 2012-03-01 Completed Matt sey Seybold Polysaccharide 00:00:00 Pneumococcal Vaccine, 2012-03-01 Completed Matt sey Seybold Polysaccharide 00:00:00 - External Pneumococcal Vaccine, 2012-03-01 Completed Matt sey Seybold Polysaccharide 00:00:00 - External Pneumococcal Vaccine, 2012-03-01 Completed Matt sey Seybold [...] Polysaccharide 00:00:00 Pneumococcal Vaccine, 2012-03-01 Completed Matt arciniega Seybold Polysaccharide 00:00:00 Pneumococcal Vaccine, 2012-03-01 Completed Matt arciniega Seybold Polysaccharide 00:00:00 - External Pneumococcal Vaccine, 2012-03-01 Completed Matt arciniega Seybold Polysaccharide 00:00:00 - External Pneumococcal Vaccine, 2012-03-01 Completed Matt arciniega Seybold Polysaccharide 00:00:00 - External Pneumococcal Vaccine, 2012-03-01 Completed Matt arciniega Seybold Polysaccharide 00:00:00 - External Pneumococcal Vaccine, 2012-03-01 Completed Matt arciniega Seybold Polysaccharide 00:00:00 - External Pneumococcal Vaccine, 2012-03-01 Completed Matt arciniega Seybold Polysaccharide 00:00:00 - External Pneumococcal Vaccine, Unknown Completed Matt Ramon Polysaccharide - External Influenza Virus Unknown Completed Mayra louis Vaccine, age 6 months - E xternal and up Influenza Virus Unknown Completed Mayra louis Vaccine, age 6 months - E xternal and up Shingles SQ Unknown Completed Mayra Opalol d (Zostavax) - External Tdap- (Boostrix, Unknown Completed Mayra luna Adacel) - External Influenza Virus Unknown Completed Mayra louis Vaccine, age 6 months - E xternal and up Influenza Virus Unknown Completed Mayra louis Vaccine, age 6 months - E xternal and up Influenza Virus Unknown Completed Mayra louis Vaccine, age 6 months - E xternal and up Influenza Virus Unknown Completed Mayra louis Vaccine, age 6 months - E xternal and up Influenza Virus Unknown Completed Mayra louis Vaccine, - External Quadrivalent, High Dose, Age 65 And Up Covid-19 Vaccine Unknown Completed Mayra chaudhryld Moderna (Spikevax), - Ext ernal Mrna-lnp, Spencer Protein, Pf Covid-19 Vaccine Unknown Completed Mayra chaudhryld Moderna (Spikevax), - Ext ernal Mrna-lnp, Spencer Protein, Pf Pneumococcal Vaccine, Unknown Completed Matt Ramon Polysaccharide - External Shingles IM Unknown Completed Mayra Josephol d (Shingrix) - External Influenza Virus Unknown Completed Mayra louis Vaccine, - External Quadrivalent, High Dose, Age 65 And Up Influenza Virus Unknown Completed Mayra Se ybold Vaccine, age 6 months - E xternal and up COVID-19 BIVALENT Unknown Completed Mayra Ramon VACCINE MODERNA - Externa l Influenza vaccine, Unknown Completed Mayra Ramon quadrivalent, - External adjuvanted, 65+ Pneumococcal Vaccine, Unknown Completed Matt Ramon Polysaccharide - External Influenza Virus Unknown Completed Mayra louis Vaccine, age 6 months - E xternal and up Influenza Virus Unknown Completed Mayra louis Vaccine, age 6 months - E xternal and up Shingles SQ Unknown Completed Mayra Josephol d (Zostavax) - External Tdap- (Boostrix, Unknown Completed Mayra luna Adacel) - External Influenza Virus Unknown Completed Mayra louis Vaccine, age 6 months - E xternal and up Influenza Virus Unknown Completed Mayra louis Vaccine, age 6 months - E xternal and up Influenza Virus Unknown Completed Mayra louis Vaccine, age 6 months - E xternal and up Influenza Virus Unknown Completed Mayra louis Vaccine, age 6 months - E xternal and up Influenza Virus Unknown Completed Mayra louis Vaccine, - External Quadrivalent, High Dose, Age 65 And Up Covid-19 Vaccine Unknown Completed Mayra luna Moderna (Spikevax), - Ext ernal Mrna-lnp, Spencer Protein, Pf Covid-19 Vaccine Unknown Completed Mayra luna Moderna (Spikevax), - Ext ernal Mrna-lnp, Spencer Protein, Pf Pneumococcal Vaccine, Unknown Completed Matt Ramon Polysaccharide - External Shingles IM Unknown Completed Mayra Josephol d (Shingrix) - External Influenza Virus Unknown Completed Mayra louis Vaccine, - External Quadrivalent, High Dose, Age 65 And Up Influenza Virus Unknown Completed Mayra louis Vaccine, age 6 months - E xternal and up COVID-19 BIVALENT Unknown Completed Mayra Ramon VACCINE MODERNA - Externa l Influenza vaccine, Unknown Completed Mayra Ramon quadrivalent, - External adjuvanted, 65+ Influenza vaccine, Unknown Completed Mayra Ramon quadrivalent, - External adjuvanted, 65+ Vital Signs Vital Name Observation Time Observation Value Comments Source Systolic blood 2023-05-09 15:41:00 114 mm[Hg] Mayra Ramon - pressure External Diastolic blood 2023-05-09 15:41:00 60 mm[Hg] Jen y Seybold - pressure External Heart rate 2023-05-09 15:41:00 88 /min Mayra Carroll eybold - External Body temperature 2023-05-09 15:41:00 36.61 April Inga ey Seybold - External Respiratory rate 2023-05-09 15:41:00 18 /min Inga ey Seybold - External Body height 2023-05-09 15:41:00 167.6 cm Mayra Carroll eybold - External Body weight 2023-05-09 15:41:00 100.472 kg Mayra Carroll eybold - External BMI 2023-05-09 15:41:00 35.75 kg/m2 Mayra Carroll eybold - External Oxygen saturation in 2023-05-09 15:41:00 97 /min Mayra Ramon - Arterial blood by External Pulse oximetry Systolic blood 2023-04-26 21:16:00 132 mm[Hg] Mayra Seybold - pressure External Diastolic blood 2023-04-26 21:16:00 60 mm[Hg] Jen mathur Seybold - pressure External Heart rate 2023-04-26 21:16:00 60 /min Mayra Carroll eybold - External Respiratory rate 2023-04-26 21:16:00 16 /min Inga hernández Seybold - External Body weight 2023-04-26 21:16:00 102.059 kg Mayra Carroll eybold - External BMI 2023-04-26 21:16:00 36.32 kg/m2 Mayra Carroll eybold - External Systolic blood 2022-12-28 18:04:00 122 mm[Hg] Mayra Seybold - pressure External Diastolic blood 2022-12-28 18:04:00 60 mm[Hg] Jen y Seybold - pressure External Heart rate 2022-12-28 18:04:00 52 /min Mayra Carroll eybold - External Respiratory rate 2022-12-28 18:04:00 16 /min Inga hernández Seybold - External Body weight 2022-12-28 18:04:00 97.433 kg Mayra aCrroll eybold - External BMI 2022-12-28 18:04:00 34.67 kg/m2 Mayra S eybold - External Systolic blood 2022-10-03 21:03:00 132 mm[Hg] Mayra Seybold - pressure External Diastolic blood 2022-10-03 21:03:00 60 mm[Hg] Mattse y Seybold - pressure External Heart rate 2022-10-03 21:03:00 80 /min Mayra S eybold - External Respiratory rate 2022-10-03 21:03:00 16 /min Inga ey Seybold - External Body weight 2022-10-03 21:03:00 93.441 kg Mayra S eybold - External BMI 2022-10-03 21:03:00 33.25 kg/m2 Mayra S eybold - External Body weight 2022-08-10 19:56:00 92.534 kg Mayra S eybold - External BMI 2022-08-10 19:56:00 32.93 kg/m2 Mayra S eybold - External Systolic blood 2022-07-19 16:47:00 112 mm[Hg] Mayra Seybold - pressure External Diastolic blood 2022-07-19 16:47:00 60 mm[Hg] Mattse y Seybold - pressure External Heart rate 2022-07-19 16:47:00 99 /min Mayra Carroll eybold - External Body temperature 2022-07-19 16:47:00 36.94 April Inga ey Seybold - External Respiratory rate 2022-07-19 16:47:00 14 /min Inga ey Seybold - External Body height 2022-07-19 16:47:00 167.6 cm Mayra S eybold - External Body weight 2022-07-19 16:47:00 90.266 kg Mayra S eybold - External BMI 2022-07-19 16:47:00 32.12 kg/m2 Mayra Carroll eybold - External Oxygen saturation in 2022-07-19 16:47:00 99 /min Mayra Doekanumirella - Arterial blood by External Pulse oximetry Systolic blood 2022-06-22 17:23:00 130 mm[Hg] Mayra Seybold - pressure External Diastolic blood 2022-06-22 17:23:00 72 mm[Hg] Mattse y Seybold - pressure External Heart rate 2022-06-22 17:23:00 107 /min Mayra S eybold - External Body weight 2022-06-22 17:23:00 83.915 kg Mayra S eybold - External BMI 2022-06-22 17:23:00 29.86 kg/m2 Mayra S eybold - External Systolic blood 2022-06-10 17:00:00 118 mm[Hg] Mayra Seybold - pressure External Diastolic blood 2022-06-10 17:00:00 64 mm[Hg] Kelse y Seybold - pressure External Heart rate 2022-06-10 17:00:00 136 /min Mayra S eybold - External Body temperature 2022-06-10 17:00:00 36.17 April Inga ey Seybold - External Respiratory rate 2022-06-10 17:00:00 16 /min Inga ey Seybold - External Body height 2022-06-10 17:00:00 167.6 cm Mayra S eybold - External Body weight 2022-06-10 17:00:00 86.637 kg Mayra S eybold - External BMI 2022-06-10 17:00:00 30.83 kg/m2 Mayra S eybold - External Systolic blood 2022-05-24 14:53:00 116 mm[Hg] Mayra Seybold - pressure External Diastolic blood 2022-05-24 14:53:00 74 mm[Hg] Mattse y Seybold - pressure External Heart rate 2022-05-24 14:53:00 98 /min Mayra S eybold - External Body temperature 2022-05-24 14:53:00 36.06 April Inga ey Seybold - External Respiratory rate 2022-05-24 14:53:00 14 /min Inga ey Seybold - External Body height 2022-05-24 14:53:00 167.6 cm Mayra S eybold - External Body weight 2022-05-24 14:53:00 86.637 kg Mayra S eybold - External BMI 2022-05-24 14:53:00 30.83 kg/m2 Mayra S eybold - External Systolic blood 2022-04-18 18:48:00 125 mm[Hg] Mayra Seybold - pressure External Diastolic blood 2022-04-18 18:48:00 71 mm[Hg] Kelse y Seybold - pressure External Heart rate 2022-04-18 18:48:00 142 /min Mayra S eybold - External Body temperature 2022-04-18 18:48:00 36.89 April Inga ey Seybold - External Respiratory rate 2022-04-18 18:48:00 14 /min Inga ey Seybold - External Body height 2022-04-18 18:48:00 167.6 cm Mayra S eybold - External Body weight 2022-04-18 18:48:00 84.369 kg Mayra S eybold - External BMI 2022-04-18 18:48:00 30.02 kg/m2 Mayra S eybold - External Oxygen saturation in 2022-04-18 18:48:00 99 /min Mayra Doeybold - Arterial blood by External Pulse oximetry Systolic blood 2021-12-10 16:41:00 132 mm[Hg] Mayra [...] Body temperature 2021-04-01 19:59:00 36.44 April Inga Ramon Respiratory rate 2021-04-01 19:59:00 18 /min Inga Ramon Body height 2021-04-01 19:59:00 167.6 cm Mayra luna Body weight 2021-04-01 19:59:00 74.798 kg Mayra luna BMI 2021-04-01 19:59:00 26.62 kg/m2 Mayra luna Oxygen saturation in 2021-04-01 19:59:00 98 /min [...] 2020-10-30 21:03:00 72.576 kg Weight 2021-11-03 16:40:[address] [facility] Weight 2021-06-09 14:30:[address] [facility] Height 2021-06-09 14:30:00 [facility] Weight 2021-05-06 14:20:00 [facility] Height 2021-05-06 14:20:00 [facility] Weight 2021-04-08 13:40:00 [facility] Height 2021-04-08 13:40:00 [facility] Weight 2021-02-05 13:45:00 [facility] Height 2021-02-05 13:45:00 [facility] Weight 2020-12-11 14:20:00 [facility] Height 2020-12-11 14:20:00 [facility] Weight 2020-11-11 14:00:00 [facility] Height 2020-11-11 14:00:00 [facility] Systolic blood 2020-11-07 11:17:00 131 mm[Hg] [facility] Diastolic blood 2020-11-07 11:17:00 60 mm[Hg] [facility] Heart rate 2020-11-07 11:17:00 81 /min [facility] Body temperature 2020-11-07 11:17:00 36.61 April [facility] Respiratory rate 2020-11-07 11:17:00 18 /min [facility] Oxygen saturation in 2020-11-07 11:17:00 96 /min [facility] Arterial blood by Medical Ce nter Pulse oximetry Body weight 2020-11-04 05:16:00 75.07 kg [facility] BMI 2020-11-04 05:16:00 26.71 kg/m2 [facility] Body height 2020-10-31 13:23:00 167.6 cm [facility] Weight 2020-10-12 19:30:[address] [facility] Height 2020-10-12 19:30:00 [facility] Weight 2020-09-09 19:00:00 [facility] Weight 2020-08-12 20:30:00 [facility] Weight 2020-07-01 21:00:00 [facility] Weight 2020-06-09 15:45:00 [facility] Weight 2020-05-14 16:30:00 [facility] Weight 2020-04-21 16:30:00 [facility] Weight 2020-02-25 16:00:00 [facility] Weight 2020-01-27 15:30:00 [facility] Weight 2019-12-30 14:45:00 [facility] Weight 2019-12-06 14:30:00 [facility] Weight 2019-11-06 16:30:00 [facility] Height 2019-11-06 16:30:00 [facility] Weight 2019-07-16 19:45:00 [facility] Height 2019-07-16 19:45:[address] [facility] Heart Rate 2019-07-16 19:45:00 [facility] Diastolic (mm Hg) 2019-07-16 19:45:00 [facility] Systolic (mm Hg) 2019-07-16 19:45:00 Shekhar root [facility] Weight 2019-06-10 20:00:00 [facility] Height 2019-06-10 20:00:00 [facility] Heart Rate 2019-06-10 20:00:00 [facility] Diastolic (mm Hg) 2019-06-10 20:00:00 Rekha fontana [facility] Systolic (mm Hg) 2019-06-10 20:00:00 Shekhar ivett [facility] Procedures Procedure Date / Time Performing Clinician Source Performed AP ARELIS KNEE STANDING ONLY 2022-10-03 21:49:00 Jensen Joy Seybold - External POCT-GLUCOSE METER 2020-11-07 11:18:00 Blanco Hickman [facility] POCT-GLUCOSE METER 2020-11-07 07:06:00 Blanco Hickman [facility] SARS-COV2/RT-PCR ([facility] & 2020-11-07 04:40:00 Rustam Garcia [facility] REF [facility] POCT-GLUCOSE METER 2020-11-06 21:03:00 Blanco Hickman [facility] POCT-GLUCOSE METER 2020-11-06 16:32:00 Blanco Hickman [facility] POCT-GLUCOSE METER 2020-11-06 11:19:00 Blanco Hickman [facility] POCT-GLUCOSE METER 2020-11-06 07:54:00 Blanco Hickman [facility] POCT-GLUCOSE METER 2020-11-05 23:44:00 Blanco Hickman [facility] POCT-GLUCOSE METER 2020-11-05 18:58:00 Blanco Hickman [facility] ECG 12-LEAD 2020-11-05 13:58:01 Blanco Hickman [facility] POCT-GLUCOSE METER 2020-11-05 11:47:00 Blanco Hickman [facility] POCT-GLUCOSE METER 2020-11-05 05:57:00 Blanco Hickman [facility] BASIC METABOLIC PANEL (7) 2020-11-05 05:42:00 Blanco Hickman CH, I [facility] MAGNESIUM 2020-11-05 05:42:00 Blanco Hickman [facility] PHOSPHORUS 2020-11-05 05:42:00 Blanco Hickman [facility] POCT-GLUCOSE METER 2020-11-05 00:33:00 Blanco Hickman [facility] POCT-GLUCOSE METER 2020-11-04 18:20:00 Blanco Hickamn [facility] ANAEROBIC CULTURE 2020-11-04 16:19:16 Sarahi [facility] AFB CULTURE + SMEAR 2020-11-04 16:19:16 Sarahi [facility] (NON-SPUTUM) [facility] FUNGUS CULTURE + SMEAR 2020-11-04 16:19:16 Sarahi Deon [facility] SURGICALLY OBTAINED 2020-11-04 16:19:16 Sarahi [facility] CULTURE + GRAM STAIN Medical [facility]ole ter SPIN/CONCENTRATION CHARGE 2020-11-04 16:19:00 Deon Lucas [facility] I&D,ABSCESS ABDOMINAL 2020-11-04 15:30:00 [facility]i [facility] POCT-GLUCOSE METER 2020-11-04 11:29:00 Blanco Hickman [facility] POCT-GLUCOSE METER 2020-11-04 05:59:00 Blanco Hickman [facility] BASIC METABOLIC PANEL (7) 2020-11-04 04:17:00 Blanco Hickman CH, I [facility] MAGNESIUM 2020-11-04 04:17:00 Blanco Hickman [facility] PHOSPHORUS 2020-11-04 04:17:00 Blanco Hickman [facility] ABORH, MANUAL 2020-11-04 00:41:00 Genet Seaman [facility] POCT-GLUCOSE METER 2020-11-03 23:41:00 Blanco Hickman [facility] TYPE AND SCREEN, 2020-11-03 20:06:[address] [facility] POCT-GLUCOSE METER 2020-11-03 18:03:00 Blanco Hickman [facility] POCT-GLUCOSE METER 2020-11-03 11:20:00 Blanco Hickman [facility] POCT-GLUCOSE METER 2020-11-03 05:47:00 Blanco Hickman [facility] CBC W/PLT COUNT & AUTO 2020-11-03 05:04:00 Blanco Hickman [facility] CBC W/PLT COUNT & AUTO 2020-11-03 05:04:00 Marylou [facility] BASIC METABOLIC PANEL (7) 2020-11-03 05:03:00 Blanco Hickman CH I [facility] MAGNESIUM 2020-11-03 05:03:00 Blanco Hickman [facility] PHOSPHORUS 2020-11-03 05:03:00 Blanco Hickman [facility] TRIGLYCERIDES 2020-11-03 05:03:00 Blanco Hickman [facility] POCT-GLUCOSE METER 2020-11-02 23:41:00 Blanco Hickman [facility] C. DIFFICILE GDH TOXIN 2020-11-02 20:23:00 Amanda Paredes CH I [facility] POCT-GLUCOSE METER 2020-11-02 15:48:00 Blanco Hickman [facility] POCT-GLUCOSE METER 2020-11-02 11:24:00 Blanco Hickman [facility] POCT-GLUCOSE METER 2020-11-02 06:01:00 Jose Santoyo [facility] CBC W/PLT COUNT & AUTO 2020-11-02 05:04:00 Jose Santoyo [facility] BASIC METABOLIC PANEL (7) 2020-11-02 05:04:00 Liza Santoyo sa [facility] CBC W/PLT COUNT & AUTO 2020-11-02 05:04:00 Jsoe Santoyo [facility] (CELLAVISION MANUAL DIFF) 2020-11-02 05:04:00 Liza Santyoo sa [facility] POCT-GLUCOSE METER 2020-11-01 20:13:00 [facility] 2020-11-01 12:14:00 Orlin Schmid [facility] BASIC METABOLIC PANEL (7) 2020-11-01 05:44:00 [facility] O[facility] HEPATIC FUNCTION PANEL 2020-11-01 05:44:00 [facility] boys[facility] rosenberg [facility] CBC W/PLT COUNT & AUTO 2020-11-01 05:44:00 [facility] boys[facility] rosenberg [facility] CBC W/PLT COUNT & AUTO 2020-11-01 05:44:00 [facility] ABDOMEN/PELVIS WITH IV 2020-10-30 23:06:[address] [facility] SARS-COV2/RT-PCR ([facility] & 2020-10-30 22:10:00 Rustam Garcia [facility] REF LABS) [facility] BLOOD CULTURE 2020-10-30 22:06:00 Rustam Garcia [facility] CBC W/PLT COUNT & AUTO 2020-10-30 22:03:00 Rustam Garcia [facility] LACTIC ACID, VENOUS 2020-10-30 22:03:00 Rustam Garcia [facility] COMPREHENSIVE METABOLIC 2020-10-30 22:03:00 Rustam [address] [facility] PROTHROMBIN TIME/INR 2020-10-30 22:03:00 Rustam [facility] APTT 2020-10-30 22:03:00 Rustam Garcia [facility] CBC W/PLT COUNT & AUTO 2020-10-30 22:03:00 Rustam Garcia [facility] BLOOD CULTURE 2020-10-30 22:03:00 Rustam Garcia [facility] BLOOD CULTURE 2020-10-30 22:03:00 Rustam Garcia [facility] IDENTIFICATION PANEL Medical Carole ter Plan of Care Planned Activity Planned Date Details Comments Source Future Scheduled 2030-10-06 Screening for malignant [facility] 00:00:00 neoplasm of colon Medical Ce nter (procedure) [code = 599079240] Future Scheduled 2030-10-06 Screening for malignant [facility] 00:00:00 neoplasm of colon Medical Ce [facility] (procedure) [code = 983659704] Future Scheduled 2030-10-06 Screening for malignant [facility] 00:00:00 neoplasm of colon Medical Ce [facility]ter (procedure) [code = 368646483] Future Scheduled 2030-10-06 Screening for malignant [facility] 00:00:00 neoplasm of colon Medical Ce [facility]ter (procedure) [code = 806312359] Future Scheduled 2030-10-06 Screening for malignant [facility] 00:00:00 neoplasm of colon Medical Ce [facility]ter (procedure) [code = 232925250] Future Scheduled 2030-10-06 Screening for malignant [facility] 00:00:00 neoplasm of colon Medical Ce [facility]ter (procedure) [code = 810551169] Future Scheduled 2030-10-06 Screening for malignant [facility] 00:00:00 neoplasm of colon Medical Ce nter (procedure) [code = 041542592] Future Scheduled 2030-10-06 Screening for malignant [facility] 00:00:00 neoplasm of colon Medical Ce [facility]ter (procedure) [code = 663740267] Future Scheduled 2030-10-06 Screening for malignant [facility] 00:00:00 neoplasm of colon Medical Ce nter (procedure) [code = 797083521] Future Scheduled 2030-10-06 Screening for malignant [facility] 00:00:00 neoplasm of colon Medical Ce [facility]ter (procedure) [code = 021512149] Future Scheduled 2030-10-06 Screening for malignant [facility] 00:00:00 neoplasm of colon Medical Ce [facility]ter (procedure) [code = 125041264] Future Scheduled 2030-10-06 Screening for malignant [facility] 00:00:00 neoplasm of colon Medical Ce [facility]ter (procedure) [code = 080848100] Future Scheduled 2030-10-06 Screening for malignant [facility] 00:00:00 neoplasm of colon Medical Ce nter (procedure) [code = 467913218] Future Scheduled 2025-02-10 DTAP/TDAP/TD VACCINES CH I [...] (2 - Td or Tdap)] Future Scheduled 2023-03-10 Influenza Vaccine (#1) [facility]00 [code = Influenza Medical Ce nter Vaccine (#1)] Future Scheduled 2023-03-[address] [facility] 00:00:00 (Season Ended) [code = Medic al Center INFLUENZA VACCINE (Season Ended)] Future Scheduled 2022-07-[address] [facility] 00:00:00 (12+) [code = Medical Center DEPRESSION SCREENING (12+)] Future Scheduled 2022-07-10 FALLS RISK SCREENING [facility] 00:00:00 [code = FALLS RISK Medical C enter SCREENING] Future Scheduled 2022-07-[address] [facility] 00:00:00 (12+) [code = Medical Center DEPRESSION SCREENING (12+)] Future Scheduled 2022-07-10 FALLS RISK SCREENING [facility] 00:00:00 [code = FALLS RISK Medical C enter SCREENING] Future Scheduled 2022-07-[address] [facility] 00:00:00 (12+) [code = Medical Center DEPRESSION SCREENING (12+)] Future Scheduled 2022-07-10 FALLS RISK SCREENING [facility] 00:00:00 [code = FALLS RISK Medical C enter SCREENING] Future Scheduled 2022-03-10 INFLUENZA VACCINE (#1) [facility] 00:00:00 [code = INFLUENZA Medical Ce nter VACCINE (#1)] Future Scheduled 2022-03-10 INFLUENZA VACCINE (#1) [facility] 00:00:00 [code = INFLUENZA Medical Ce nter VACCINE (#1)] Future Scheduled 2022-03-10 INFLUENZA VACCINE (#1) [facility] 00:00:00 [code = INFLUENZA Medical Ce nter VACCINE (#1)] Future Scheduled 2022-03-10 INFLUENZA VACCINE (#1) [facility] 00:00:00 [code = INFLUENZA Medical Ce nter VACCINE (#1)] Future Scheduled 2021-11-[address] [facility] 00:00:00 [facility]ing [facility] Medical Cente r Screening (12+) [code = Tobacco Cessation Counseling and Screening (12+)] Future Scheduled 2021-11-[address] [facility] 00:00:00 [facility] Medical Cent[facility] r Screening (12+) [code = Tobacco Cessation Counseling and Screening (12+)] Future Scheduled 2021-11-[address] [facility] 00:00:00 Counseling and Medical Cente r Screening (12+) [code = Tobacco Cessation Counseling and Screening (12+)] Future Scheduled 2021-07-[address] [facility] 00:00:00 (12+) [code = Medical Center DEPRESSION SCREENING (12+)] Future Scheduled 2021-07-10 FALLS RISK SCREENING [facility] 00:00:00 [code = FALLS RISK Medical C enter SCREENING] Future Scheduled 2021-07-[address] [facility] 00:00:00 (12+) [code = Medical Center DEPRESSION SCREENING (12+)] Future Scheduled 2021-07-10 FALLS RISK SCREENING [facility] 00:00:00 [code = FALLS RISK Medical C enter SCREENING] Future Scheduled 2021-07-[address] [facility] 00:00:00 (12+) [code = Medical Center DEPRESSION SCREENING (12+)] Future Scheduled 2021-07-10 FALLS RISK SCREENING [facility] 00:00:00 [code = FALLS RISK Medical C enter SCREENING] Future Scheduled 2021-03-10 INFLUENZA VACCINE (#1) [facility] 00:00:00 [code = INFLUENZA Medical Ce nter VACCINE (#1)] Future Scheduled 2021-03-10 COVID-19 VACCINE (3 - [facility] for [facility] series) [code = COVID-19 VACCINE (3 - Booster for [employer] series)] Future Scheduled 2021-03-10 COVID-19 VACCINE (3 - [facility]00 [facility] series) [code = COVID-19 VACCINE (3 - Booster for [employer] series)] Future Scheduled 2021-03-10 COVID-19 VACCINE (3 - [facility]:00 [facility] series) [code = COVID-19 VACCINE (3 - Booster for [employer] series)] Future Scheduled 2021-03-10 COVID-19 VACCINE (3 - [facility]00 [facility] series) [code = COVID-19 VACCINE (3 - Booster for [employer] series)] Future Scheduled 2020-12-03 COVID-19 VACCINE (3 - [facility] 00[facility]00:00 [facility] series) [code = COVID-19 VACCINE (3 - Booster for [employer] series)] Future Scheduled 2020-12-03 COVID-19 VACCINE (3 - [facility] 00:[facility]:00 Moderna series) [code = [facility] COVID-19 VACCINE (3 - Moderna series)] Future Scheduled 2020-07-[address] [facility] 00:00:00 (12+) [code = Medical Center DEPRESSION SCREENING (12+)] Future Scheduled 2020-07-10 FALLS RISK SCREENING [facility] 00:00:00 [code = FALLS RISK Medical C enter SCREENING] Future Scheduled 2019-12-13 PNEUMOCOCCAL 65+ YRS ([address] [facility] 00:00:00 of 1 - [id number] PCV13) [code = PNEUMOCOCCAL 65+ YRS (1 of 1 - [id number] PCV13)] Future Scheduled 2019-12-13 PNEUMOCOCCAL 65+ YRS (1 [...] PCV)] Future Scheduled 2019-12-13 PNEUMOCOCCAL 65+ YRS ([address] [facility] 00:00:00 - PCV) [code = Medical Cente r PNEUMOCOCCAL 65+ YRS (2 - PCV)] Future Scheduled 2019-07-[address] [...] breast Medical C enter (procedure) [code = 066843165] Future Scheduled 1954 Screening for malignant [facility] 00:00:00 neoplasm of breast Medical C enter (procedure) [code = 720260000] Future Scheduled 1954 CT Colonography (combo) [facility] 00:00:00 [code = CT Colonography [facility] (combo)] Future Scheduled 1954 DXA SCAN [code = DXA [facility] 00:00:00 SCAN] [facility] Future Scheduled 1954 Screening for malignant [facility] 00:00:00 neoplasm of colon Medical Ce nter (procedure) [code = 193792035] Future Scheduled 1954 Screening for malignant [facility] 00:00:00 neoplasm of colon Medical Ce nter (procedure) [code = 850252916] Future Scheduled 1954 Sigmoidoscopy [code = [facility] Sigmoidoscopy] [facility] Future Scheduled 1954 Screening for malignant [facility] 00:00:00 neoplasm of breast Medical C enter (procedure) [code = 614257482] Future Scheduled 1954 CT Colonography (combo) [facility] 00:00:00 [code = CT Colonography [facility] (combo)] Future Scheduled 1954 DXA SCAN [code = DXA [facility] 00:00:00 SCAN] [facility] Future Scheduled 1954 Screening for malignant [facility] 00:00:00 neoplasm of colon Medical Ce nter (procedure) [code = 716420745] Future Scheduled 1954 Screening for malignant [facility] 00:00:00 neoplasm of colon Medical Ce nter (procedure) [code = 733934755] Future Scheduled 1954 Sigmoidoscopy [code = [facility] S[facility]oscopy] [facility] Future Scheduled 1954 Screening for malignant [facility] 00:00:00 neoplasm of breast Medical C enter (procedure) [code = 796205911] Future Scheduled 1954 CT Colonography (combo) [facility] 00:00:00 [code = CT Colonography [facility] (combo)] Future Scheduled 1954 DXA SCAN [code = DXA [facility] 00:00:00 SCAN] [facility] Future Scheduled 1954 Screening for malignant [facility] 00:00:00 neoplasm of colon Medical Ce nter (procedure) [code = 847928994] Future Scheduled 1954 Screening for malignant [facility] 00:00:00 neoplasm of colon Medical Ce nter (procedure) [code = 915911945] Future Scheduled 1954 Sigmoidoscopy [code = [facility] S[facility]oscopy] [facility] Future Scheduled 1954 Screening for malignant [facility] 00:00:00 neoplasm of breast Medical C enter (procedure) [code = 916550210] Future Scheduled 1954 CT Colonography (combo) [facility] 00:00:00 [code = CT Colonography [facility] (combo)] Future Scheduled 1954 DXA SCAN [code = DXA [facility] 00:00:00 SCAN] [facility] Future Scheduled 1954 Screening for malignant [facility] 00:00:00 neoplasm of colon Medical Ce nter (procedure) [code = 036390094] Future Scheduled 1954 Screening for malignant [facility] 00:00:00 neoplasm of colon Medical Ce nter (procedure) [code = 369009435] Future Scheduled 1954 Sigmoidoscopy [code = [facility] Sigmoidoscopy] [facility] Future Scheduled 1954 Screening for malignant [facility] 00:00:00 neoplasm of breast Medical C enter (procedure) [code = 151466760] Future Scheduled 1954 CT Colonography (combo) [facility] 00:00:00 [code = CT Colonography [facility] (combo)] Future Scheduled 1954 DXA SCAN [code = DXA [facility] 00:00:00 SCAN] [facility] Future Scheduled 1954 Screening for malignant [facility] 00:00:00 neoplasm of colon Medical Ce nter (procedure) [code = 235110384] Future Scheduled 1954 Screening for malignant [facility] 00:00:00 neoplasm of colon Medical Ce nter (procedure) [code = 827034461] Future Scheduled 1954 Sigmoidoscopy [code = [facility] 1954 Screening for malignant [facility] 00:00:00 neoplasm of breast Medical C enter (procedure) [code = 729039305] Future Scheduled 1954 CT Colonography (combo) [facility] 00:00:00 [code = CT Colonography [facility] (combo)] Future Scheduled 1954 DXA SCAN [code = DXA [facility] 00:00:00 SCAN] [facility] [facility] Future Scheduled 1954 Screening for malignant [facility] 00:00:00 neoplasm of colon Medical Ce nter (procedure) [code = 806062984] Future Scheduled 1954 Screening for malignant [facility] 00:00:00 neoplasm of colon Medical Ce nter (procedure) [code = 243437724] Future Scheduled 1955 Sigmoidoscopy [code = [facility] End Encounter Admission Attending Care Care Encounter Source Date/Time Date/Time Type Type Clinicians Facility Department ID 2023-06-06 Outpatient [id number] D24A-E Memoria 02:42:06 FQ3F-9217 1E-4066-8A3 B2Z-3528- 8 l -6B47-552 3-627CD3020 N50-817PR0 Félix [id number] 3E4 5083E4 2023-05-09 Outpatient [id number]- [id number] AB2B 4E29-4 Memoria 10:43:09 52B3-7LOO C7-4FEA-B5B 9O9-9LLB- B l -P6D2-28O 1-95U80728A 7I4-99L221 Félix 39707L699 054 39J129 2023-04-26 Outpatient [id number]- [id number]-9M 1B71 96AE-9 Memoria 16:14:28 0F87-713C 59-431B-88B L24-867Z- 8 l -51Q5-488 7-6583230HH 2J0-932193 Félix 6721MJ3DP 3BC 3AA3BC 2023-03-08 Outpatient [id number]- W28RS44G-8X B79C E36B-6 Memoria 09:05:24 4D56-1R47 95-2Z56-OER K84-3I59- A l -AFFD-772 D-649518C87 FFD-148761 Félix 330A05V1M B0D A91B0D 2022-12-28 Outpatient 5L4G2B99- 2Y1V6L15-09 0F5F 1D04-4 Memoria 12:58:00 86F4-1326 D2-4350-972 0U9-5161- 9 l -972F-113 F-768733253 72F-708712 Félix [id number] 814 025703 6494-04-11 Outpatient [id number]- 804L2038-0G 828B 3905-4 Memoria 01:07:12 4BDE-4AE0 DE-4XE2-I6K BDE-4AE0- A l -W5SV-1EE B-5SLI7B85D 3CB-3AAE0B Félix D9S73KCE0 BF9 97FBF9 2022-10-03 Outpatient 85QWR022- 80FWB726-JQ 18EA F727-F Memoria 15:55:07 CF62-2QT4 52-3GA2-S10 C96-5EB9- B l -Z15K-206 D-9431D53FQ 29D-1123F3 Félix 4P80SL29Y 84D 3CB84D 2022-09-13 Outpatient [id number]- 25D188U7-J5 72A9 40C6-A Memoria 08:06:16 J79F-873K 6B-419B-BD3 76B-419B- B l -VN54-3V0 0-7W99Z5687 J80-5T92V2 Jay [id number] 89B 74339B 2022-08-10 Outpatient 299O4Q29- 535P5W33-42 663C 4B17-4 Memoria 13:38:46 4278-4B45 78-6R19-HZ6 278-4B45- A l -EB2T-9V2 C-2H142PXXV S5D-6B462U Jay 41KNAJ799 139 PPQ276 2022-08-04 Outpatient [id number] F2B5 5835-9 Memoria 04:56:17 3FB4-3451 E4-4212-BB8 AE4-4212- B l -FQ04-38X 8-14E0RW60C R72-16H4EY Félix 5SP97J267 011 10M230 2022-07-19 Outpatient [id number]- 81S3N76S-60 83A0 F04C-3 Memoria 10:41:47 3063-464C 63-464C-B8C 063-464C- B l -G7DG-B36 C-H552I5PXA 8CC-D217A2 Félix 8D0DBBRU1 FD8 AFDFD8 2022-06-22 Outpatient [id number]- V82268HX-OZ C725 83ED-C Memoria 10:52:40 ZY6D-5MM7 5A-5QE8-8F0 A3Z-9CD4- 9 l -2L23-343 5-7005A9K67 E87-0713C2 Jay [id number] 467 W57960 2022-06-10 Outpatient R4LX9N3L- L1AF7U4W-V6 F4BC 4F5D-F Memoria 11:06:30 U61N-3U7J 4A-6R4G-43Y 44A-4B7D- 8 l -86AE-1FF E-0EBQB8398 6AE-1FFCB8 Félix [id number] 069 [id number] 1919-11-17 Outpatient 1UAQ73S3- 0QGX35L2-22 0EBC 11D7-0 Memoria 06:41:20 44Q3-0364 B6-4494-AE4 6G6-8434- A l -IS38-242 5-138I16D01 M90-415U27 Félix C64R618D0 9D5 B569D5 2022-05-24 Outpatient [id number]- 50O290I3-60 10B4 29C6-8 Memoria 08:53:08 864F-4C46 4F-5K70-450 64F-4C46- 8 l -870C-44C C-91KR324QR 70C-44CC08 Félix T219OOT4N A5A 2FCA5A 2022-03-10 Outpatient IBWUW142- HFZVI808-1K CFFE D117-2 Memoria 09:41:08 2C11-3R30 77-8U40-2D6 T44-4K27- 9 l -5U58-68A 9-38VKJ4JS6 K42-45NQI3 Félix YY0PE1H58 D59 EA3D59 2022-03-09 Outpatient 272VQ632- 753BR632-60 987D A658-0 Memoria 18:24:22 051D-47BC 1D-47BC-AC0 51D-47BC- A l -FT0W-I27 C-W449366OG Y6E-O59938 Félix 9262ZZU92 D41 8FAD41 2022-03-05 Outpatient 55U66NZL- 75B58UMQ-57 11D4 0FBC-9 Memoria 13:26:48 9644-4ADA 44-4ADA-95E 644-4ADA- 9 l -95ED-BD9 D-YF2TK049G 5ED-BD9DD6 Félix IH267XZ26 B91 45AB91 2021-04-01 Outpatient M46RY0C1- O03TR9Z8-4V A07E B6F5-8 Memoria 14:46:56 1I28-3765 66-4754-A87 Q08-4059- A l -Y12T-PDT D-YNAQ2A9G5 87D-AFDF6F Félix P2V2O1847 428 [id number] 2020-05-02 Inpatient [facility] [id number] [facility] 13:29:[address] [place] [address] 2023-08-09 2023-08-09 Outpatient MAYRA ALDANA [id number] Mayra 11:00:00 11:00:00 CHIQUITA segura 2023-07-28 2023-07-28 Outpatient MAYRA JOY [id number] [place] 13:15:00 13:15:00 JENSEN Josephol imelda 2023-06-05 2023-06-05 Outpatient MAYRA JOY [id number] [place] 00:00:00 00:00:00 JENSEN Seybol d 2023-06-03 2023-06-03 Outpatient ELIZABETHMAYRA Carroll [id number] [place] 00:00:00 00:00:00 CAMACHO Seybol d 2023-05-12 2023-05-12 Outpatient STAR MAYRA ENRIQUEZ [id number] Mayra 00:00:00 00:00:00 MD NORAH Seybol d 2023-05-12 2023-05-12 Outpatient MAYRA ALDANA [id number] [place]ra 00:00:00 00:00:00 CHIQUITA Seybol d 2023-05-11 2023-05-11 Outpatient MAYRA ALDANA [id number] [place] 00:00:00 00:00:00 CHIQUITA Seybol d 2023-05-11 2023-05-11 Outpatient MAYRA BAUER [id number] [place] 00:00:00 00:00:00 ILDEFONSO Seybol d 2023-05-11 2023-05-11 Outpatient MAYRA ALDANA [id number] [place] 00:00:00 00:00:00 CHIQUITA Seybol d 2023-05-09 2023-05-09 Outpatient LAB90 MAYRA ENRIQUEZ [id number] [place] 11:25:00 11:25:00 Seybol d 2023-05-09 2023-05-09 Outpatient MAYRA ALDANA [id number] Mayra 10:30:00 10:30:00 CHIQUITA Seybol d 2023-05-09 2023-05-09 Outpatient MAYRA ALDANA [id number] [place] 10:30:00 10:30:00 CHIQUITA Seybol d 2023-05-08 2023-05-08 Outpatient MAYRA JOY [id number] [place] 00:00:00 00:00:00 JENSEN Seybol d 2023-05-08 2023-05-08 Outpatient MAYRA JOY [id number] [place] 00:00:00 00:00:00 JENSEN Seybol d 2023-05-06 2023-05-06 Outpatient MAYRA BUCKLEY [id number] [place] 00:00:00 00:00:00 BRENTLY Seybol d 2023-05-04 2023-05-04 Outpatient MAYRA BAUER [id number] [place] 00:00:00 00:00:00 ILDEFONSO Seybol d 2023-04-26 2023-04-26 Outpatient MAYRA JOY [id number] [place] 16:15:00 16:15:00 JENSEN Seybol d 2023-04-20 2023-04-20 Outpatient MAYRA PRIDE [id number] [place] 00:00:00 00:00:00 CAMACHO Seybol d 2023-04-10 2023-04-10 Outpatient MAYRA JOY [id number] [place] 00:00:00 00:00:00 JENSEN Seybol d 2023-04-06 2023-04-06 Outpatient ANAI BABCOCK MAYRA ENRIQUEZ [id number] Mayra 10:30:00 10:30:00 Seybol d 2023-03-31 2023-03-31 Outpatient MAYRA JOY [id number] [place] 11:00:00 11:00:00 JENSEN Seybol d 2023-03-16 2023-03-16 Outpatient MAYRA JOY [id number] [place] 00:00:00 00:00:00 JENSEN Seybol d 2023-03-13 2023-03-13 Outpatient MAYRA BAUER [id number] [place] 00:00:00 00:00:00 ILDEFONSO Seybol d 2023-03-08 2023-03-08 Outpatient MAYRA WAGONER [id number] [place] 09:20:00 09:20:00 ORLANDO Seybol d 2023-03-08 2023-03-08 Outpatient MAYRA ENRIQUEZ [id number] [place]ra 09:05:00 09:05:00 Seybol d 2023-03-07 2023-03-07 Outpatient MAYRA WAGONER [id number] [place] 00:00:00 00:00:00 OR[place]O Seybol d 2023-02-21 2023-02-21 Outpatient MAYRA BAUER [id number] [place]ra 00:00:00 00:00:00 ILDEFONSO Seybol d 2023-02-21 2023-02-21 Outpatient MAYRA BAUER [id number] [place] 00:00:00 00:00:00 ILDEFONSO Seybol d 2023-02-20 2023-02-20 Outpatient PRETONYMAYRA [id number] [place] 00:00:00 00:00:00 CAMACHO Seybol d 2023-02-16 2023-02-16 Outpatient MAYRA JOY [id number] [place] 00:00:00 00:00:00 JENSEN Seybol d 2023-02-01 2023-02-01 Outpatient STAR ENRIQUEZ [id number] Mayra 00:00:00 00:00:00 MD NORAH Seybol d 2023-01-26 2023-01-26 Outpatient YASMIN ENRIQUEZ [id number] [place]ra 00:00:00 00:00:00 ROSSY HERNÁNDEZ Se ybmirella 2023-01-18 2023-01-18 Outpatient MAYRA JOY [id number] [place] 00:00:00 00:00:00 JENSEN Seybol d 2023-01-18 2023-01-18 Outpatient MAYRA JOY [id number] [place] 00:00:00 00:00:00 JENSEN Seybol d 2023-01-18 2023-01-18 Outpatient MAYRA JOY [id number] [place] 00:00:00 00:00:00 JENSEN Seybol d 2022-12-28 2022-12-28 Outpatient MAYRA JOY [id number] [place] 13:00:00 13:00:00 JENSEN Seybol d 2022-12-21 2022-12-21 Outpatient MAYRA JOY [id number] Marya 00:00:00 00:00:00 JENSEN Seybol d 2022-11-22 2022-11-22 Outpatient MAYRA JOY [id number] [place] 00:00:00 00:00:00 JENSEN Seybol d 2022-11-22 2022-11-22 Outpatient PREZABelgica MAYRA ENRIQUEZ [id number] [place] 00:00:00 00:00:00 CAMACHO Seybol d 2022-10-25 2022-10-25 Outpatient PREZABelgica, MYARA ENRIQUEZ [id number] [place] 00:00:00 00:00:00 CMAACHO Seybol d 2022-10-24 2022-10-24 Outpatient IMELDA, MAYRA ENRIQUEZ [id number] [place] 00:00:00 00:00:00 JENSEN Seybol d 2022-10-03 2022-10-03 Outpatient MAYRA ENRIQUEZ [id number] [place] 16:45:00 16:45:00 Seybol d 2022-10-03 2022-10-03 Outpatient IMELDA MAYRA ENRIQUEZ [id number] [place] 16:15:00 16:15:00 JNESEN Seybol d 2022-09-30 2022-09-30 Outpatient MAYRA JOY [id number] [place] 00:00:00 00:00:00 JENSEN Seybol d 2022-09-21 2022-09-21 Outpatient IMELDA, MAYRA ENRIQUEZ [id number] [place]ra 11:15:00 11:15:00 JENSEN Seybol d 2022-09-16 2022-09-16 Outpatient PREZABelgica, MAYRA ENRIQUEZ [id number] [place]ra 00:00:00 00:00:00 CAMACHO Seybol d 2022-09-16 2022-09-16 Outpatient PREZAS, MAYRA ENRIQUEZ [id number] [place] 00:00:00 00:00:00 CAMACHO Seybol d 2022-09-16 2022-09-16 Outpatient MAYRA ENRIQUEZ [id number] [place] 00:00:00 00:00:00 Seybol d 2022-09-16 2022-09-16 Outpatient PREZABelgica, MAYRA ENRIQUEZ [id number] [place] 00:00:00 00:00:00 CAMACHO Seybol d 2022-09-16 2022-09-16 Outpatient YASMIN ENRIQUEZ [id number] [place] 00:00:00 00:00:00 ROSSY HERNÁNDEZ Se 2022-09-13 2022-09-13 Outpatient ELIZABETH CANTU MAYRA ENRIQUEZ [id number] May[place] 08:00:00 08:00:00 Seybol d 2022-09-05 2022-09-05 Outpatient VANDANA-TYRA ENRIQUEZ [id number] [place] 00:00:00 00:00:00 EYROSSY Se ybold 2022-09-02 2022-09-02 Outpatient PREMAYRA JIMENEZ [id number] [place] 00:00:00 00:00:00 CAMACHO Seybol d 2022-09-02 2022-09-02 Outpatient PREZAMAYRA Carroll [id number] [place] 00:00:00 00:00:00 CAMACHO Seybol d 2022-09-01 2022-09-01 Outpatient MAYRA JOY [id number] [place] 00:00:00 00:00:00 JENSEN Seybol d 2022-08-25 2022-08-25 Outpatient ALONDRA ELIZABETH MAYRA ENRIQUEZ [id number] Mayra 00:00:00 00:00:00 Seybol d 2022-08-17 2022-08-17 Outpatient MAYRA ENRIQUEZ [id number] [place] 00:00:00 00:00:00 Seybol d 2022-08-10 2022-08-10 Outpatient MAYRA HERRERA [id number] [place] 14:00:00 14:00:00 BOBBY Seybo ld 2022-08-05 2022-08-05 Outpatient YASMIN ENRIQUEZ [id number] [place] 00:00:00 00:00:00 EYROSSY Se ybold 2022-08-02 2022-08-02 Outpatient MAYRA JOY [id number] [place] 00:00:00 00:00:00 JENSEN Seybol d 2022-08-01 2022-08-01 Outpatient MAYRA PRIDE [id number] [place] 00:00:00 00:00:00 CAMACHO Seybol d 2022-07-26 2022-07-26 Outpatient YASMIN ENRIQUEZ [id number] [place] 00:00:00 00:00:00 EYROSSY Se ybold 2022-07-19 2022-07-19 Outpatient PREZAMAYRA Carroll [id number] [place] 10:45:00 10:45:00 CAMACHO Seybol d 2022-07-19 2022-07-19 Outpatient MAYRA ENRIQUEZ [id number] [place] 00:00:00 00:00:00 Seybol d 2022-07-05 2022-07-05 Outpatient MAYRA JOY [id number] [place] 00:00:00 00:00:00 JENSEN Seybol d 2022-06-23 2022-06-23 Outpatient ROSSTYRA ENRIQUEZ [id number] [place] 00:00:00 00:00:00 EYROSSY Se ybold 2022-06-22 2022-06-22 Outpatient MAYRA JOY [id number] [place] 11:15:00 11:15:00 JENSEN Seybol d 2022-06-10 2022-06-10 Outpatient MAYRA PRIDE [id number] [place] 11:15:00 11:15:00 CAMACHO Seybol d 2022-06-01 2022-06-01 Outpatient MAYRA JOY [id number] [place] 00:00:00 00:00:00 JENSEN Seybol d 2022-05-27 2022-05-27 Outpatient MAYRA BAUER [id number] [place] 00:00:00 00:00:00 ILDEFONSO Seybol d 2022-05-26 2022-05-26 Outpatient MAYRA ENRIQUEZ [id number] [place] 07:05:00 07:05:00 Seybol d 2022-05-26 2022-05-26 Outpatient MAYRA SHEETS [id number] [place] 07:00:00 07:00:00 AHMED Seybol d 2022-05-26 2022-05-26 Outpatient MAYRA GAMBOA [id number] [place] 00:00:00 00:00:00 TARAS Seybol d 2022-05-25 2022-05-25 Outpatient MAYRA SLOAN [id number] [place] 00:00:00 00:00:00 ADRYENE Seybol d 2022-05-24 2022-05-24 Outpatient MAYRA BAUER [id number] [place] 09:00:00 09:00:00 ILDEFONSO Seybol d 2022-05-24 2022-05-24 Outpatient MAYRA BAUER [id number] [place] 00:00:00 00:00:00 ILDEFONSO Seybol d 2022-05-23 2022-05-23 Outpatient MAYRA SHEETS [id number] [place] 00:00:00 00:00:00 AHMED Seybol d 2022-05-23 2022-05-23 Outpatient STAR ENRIQUEZ [id number] [place] 00:00:00 00:00:00 MD NORAH Seybol d 2022-05-09 2022-05-09 Outpatient MAYRA PRIDE [id number] [place] 00:00:00 00:00:00 CAMACHO Seybol d 2022-05-05 2022-05-05 Outpatient MAYRA JOY [id number] [place] 00:00:00 00:00:00 JENSEN Seybol d 2022-04-25 2022-04-25 Outpatient MAYRA SHEETS [id number] [place] 08:15:00 08:15:00 AHMED Seybol d 2022-04-25 2022-04-25 Outpatient MAYRA SHEETS [id number] [place] 00:00:00 00:00:00 AHMED Seybol d 2022-04-18 2022-04-18 Outpatient MAYRA PRIDE [id number] [place] 14:00:00 14:00:00 CAMACHO Seybol d 2022-04-15 2022-04-15 Outpatient MAYRA PRIDE [id number] [place] 15:15:00 15:15:00 CAMACHO Seybol d 2022-04-07 2022-04-07 Outpatient MAYRA JOY [id number] [place] 00:00:00 00:00:00 JENSEN Seybol d 2022-03-232022-03-23 Outpatient MAYRA JOY [id number] [place] 11:15:00 11:15:00 JENSEN Seybol d 2022-03-21 2022-03-21 Outpatient MAYRA PRIDE [id number] [place] 00:00:00 00:00:00 CAMACHO Seybol d 2022-03-18 2022-03-18 Office ElizabethbelgicaEddie 1.2.840.114 [id number] [place] 15:00:00 15:30:00 Visit Camacho Ng 350.1.13.13 Se missy 1.2.7.2.686 [id number] 2022-03-09 2022-03-09 Outpatient MAYRA JOY [id number] [place] 00:00:00 00:00:00 JENSEN Seybol d 2022-03-08 2022-03-08 Outpatient MAYRA TUCKER [id number] [place] 00:00:00 00:00:00 FARTUN Seybol d 2022-03-01 2022-03-01 Outpatient MAYRA BAUER [id number] [place] 10:00:00 10:00:00 ILDEFONSO Seybol d 2022-02-28 2022-02-28 Outpatient MAYRA BAUER [id number] [place] 00:00:00 00:00:00 ILDEFONSO Seybol d 2022-02-16 2022-02-16 Outpatient MAYRA SHEETS [id number] [place] 15:15:00 15:15:00 AHMED Seybol d 2022-02-14 2022-02-14 Outpatient YASMIN ENRIQUEZ [id number] [place] 00:00:00 00:00:00 ROSSY HERNÁNDEZ Se ybold 2022-02-09 2022-02-09 Outpatient MAYRA OLIVER [id number] [place] 00:00:00 00:00:00 ELIAN Seybol d 2022-02-07 2022-02-07 Outpatient MAYRA JOY [id number] [place] 00:00:00 00:00:00 JENSEN Seybol d 2022-02-07 2022-02-07 Outpatient MAYRA JOY [id number] [place] 00:00:00 00:00:00 JENSEN Seybol d 2022-02-03 2022-02-03 Outpatient MAYRA TUCKER [id number] [place] 00:00:00 00:00:00 FARTUN Seybol d 2022-02-01 2022-02-01 Outpatient MAYRA BAUER [id number] [place] 00:00:00 00:00:00 ILDEFONSO Seybol d 2022-01-31 2022-01-31 Outpatient MAYRA JOY [id number] [place] 00:00:00 00:00:00 JENSEN Seybol d 2022-01-26 2022-01-26 Outpatient MAYRA BAUER [id number] [place] 00:00:00 00:00:00 ILDEFONSO Seybol d 2022-01-25 2022-01-25 Outpatient EDDIE LOPEZ [id number] [place] 10:45:00 10:45:00 Seybol d 2022-01-21 2022-01-21 Outpatient MAYRA BAUER [id number] [place] 00:00:00 00:00:00 ILDEFONSO Seybol d 2022-01-20 2022-01-20 Outpatient MAYRA BAUER [id number] [place] 00:00:00 00:00:00 ILDEFONSO Seybol d 2022-01-19 2022-01-19 Outpatient MAYRA BAUER [id number] [place] 00:00:00 00:00:00 ILDEFONSO Seybol d 2022-01-11 2022-01-11 Outpatient MAYRA BAUER [id number] [place] 00:00:00 00:00:00 ILDEFONSO Seybol d 2022-01-07 2022-01-07 Outpatient LAB90 MAYRA ENRIQUEZ [id number] [place] 10:15:00 10:15:00 Seybol d 2022-01-07 2022-01-07 Office Eddie Bauer 1.2.840.114 [id number] [place] 09:15:00 10:00:00 Visit Ildefonso Ng 350.1.13.13 Se ybold Somogyi 1.2.7.2.686 [id number] 2022-01-05 2022-01-05 Outpatient MAYRA JOY [id number] [place] 00:00:00 00:00:00 JENSEN Seybol d 2021-12-13 2021-12-13 Outpatient MAYRA JOY [id number] [place] 00:00:00 00:00:00 JENSEN Seybol d 2021-12-10 2021-12-10 Office MIA Joy 1.2.840.114 [id number] [place] 11:45:00 12:00:[address] [facility] 350.1.13.13 Se missy 1.2.7.2.686 [id number] 2021-12-02 2021-12-02 Outpatient MAYRA BAUER [id number] [place] 00:00:00 00:00:00 ILDEFONSO Seybol d 2021-12-02 2021-12-02 Outpatient MAYRA ESPINOZA [id number] [place] 00:00:00 00:00:00 MUHAMMED Seybo ld 2021-11-25 2021-11-25 Outpatient MAYRA BAUER [id number] [place] 09:00:00 09:00:00 ILDEFONSO Seybol d 2021-11-18 2021-11-18 Outpatient LAB90 MAYRA ENRIQUEZ [id number] [place] 14:40:00 14:40:00 Seybol d 2021-11-18 2021-11-18 Office Eddie Bauer 1.2.840.114 [id number] [place] 14:00:00 14:15:00 Visit Ildefonso Ng 350.1.13.13 Se ybold Somogyi 1.2.7.2.686 [id number] 2021-11-15 2021-11-15 Outpatient MAYRA JOY [id number] [place] 00:00:00 00:00:00 JENSEN Seybol d 2021-11-11 2021-11-11 Office Eddie Bauer 1.2.840.114 [id number] [place] 10:45:00 11:00:00 Visit Ildefonso Ng 350.1.13.13 Se ybmirella Somogyi 1.2.7.2.686 [id number] 2021-11-03 2021-11-03 Outpatient EITAN EITAN MEJIA [id number] [facility] 11:40:00 11:40:00 ROBERTO sarmientoWork s PA 2021-10-26 2021-10-26 Office MIA Tucker 1.2.840.114 [id number] [place] 11:00:00 11:15:00 Visit Suad ODELL 350.1.13.13 Seybold 1.2.7.2.686 [id number] 2021-10-18 2021-10-18 Outpatient MAYRA JOY [id number] [place] 00:00:00 00:00:00 JENSEN Seybol d 2021-10-06 2021-10-06 Outpatient EITAN EITAN ROBERTO [id number] [facility] 10:40:00 10:40:00 ROBERTO sarmientoWork s PA 2021-09-26 2021-09-26 Outpatient YASMIN ENRIQUEZ [id number] [place] 00:00:00 00:00:00 ROSSY HERNÁNDEZ Se 2021-09-26 2021-09-26 Outpatient MAYRA BAUER [id number] [place] 00:00:00 00:00:00 ILDEFONSO Seybol d 2021-09-17 2021-09-17 Outpatient MAYRA JOY [id number] [place] 00:00:00 00:00:00 JENSEN Seybol d 2021-09-17 2021-09-17 Outpatient YASMIN ENRIQUEZ [id number] [place] 00:00:00 00:00:00 ROSSY HERNÁNDEZ missy 2021-09-13 2021-09-13 Outpatient EDDIE LOPEZ [id number] [place] 14:00:00 14:00:00 Seybol d 2021-09-13 2021-09-13 Outpatient MAYRA JOY [id number] [place] 00:00:00 00:00:00 JENSEN Seybol d 2021-09-10 2021-09-10 Outpatient MAYRA JOY [id number] [place] 00:00:00 00:00:00 JENSEN Seybol d 2021-09-09 2021-09-09 Outpatient EITAN EITAN MEJIA [id number] [facility] 10:20:00 10:20:00 ROBERTO FERRERA alWork s PA 2021-09-08 2021-09-08 Office MIA Joy 1.2.840.114 [id number] [place] 11:45:00 12:00:00 Visit Jensensaman ODELL 350.1.13.13 Se missy 1.2.7.2.686 [id number] 2021-09-08 2021-09-08 Outpatient MAYRA TUCKER [id number] [place] 10:30:00 10:30:00 SUAD Seybol d 2021-09-08 2021-09-08 Outpatient MAYRA JOY [id number] [place] 00:00:00 00:00:00 JENSEN Seybol d 2021-08-29 2021-08-29 Outpatient YASMIN ENRIQUEZ [id number] [place] 00:00:00 00:00:00 EY ROSSY Se ybold 2021-08-28 2021-08-28 Outpatient YASMIN ENRIQUEZ [id number] [place] 00:00:00 00:00:00 EY ROSSY Se ybold 2021-08-24 2021-08-24 Outpatient EITAN EITAN MEJIA [id number] [facility] 13:02:00 13:02:00 ROBERTO FERRERA alWork s PA 2021-08-24 2021-08-24 Outpatient EITAN EITAN MEJIA [id number] [facility] 08:20:00 08:20:00 ROBERTO sarmientoWork s PA 2021-08-24 2021-08-24 Outpatient MAYRA JOY [id number] [place] 00:00:00 00:00:00 JENSEN Seybol d 2021-08-23 2021-08-23 Outpatient YASMIN ENRIQUEZ [id number] [place] 00:00:00 00:00:00 EY ROSSY Se ybold 2021-08-20 2021-08-20 Outpatient EITAN EITAN MEJIA [id number] [facility] 11:58:00 11:58:00 ROBERTO FERRERA alWork s PA 2021-08-19 2021-08-19 Outpatient MAYRA ENRIQUEZ [id number] [facility] 07:10:00 07:10:00 Seybol d 2021-08-19 2021-08-19 Outpatient MAYRA SHEETS [id number] [facility] 06:30:00 06:30:00 AHMED Seybol d 2021-08-18 2021-08-18 Outpatient KORTNEYMAYRA [id number] [facility] 00:00:00 00:00:00 AHMED Seybol d 2021-08-18 2021-08-18 Outpatient SLOANMAYRA [id number] [facility] 00:00:00 00:00:00 ADRYENE Seybol d 2021-08-17 2021-08-17 Outpatient MAYRA STEWARD [id number] [facility] 00:00:00 00:00:00 DEANDRE Seybol d 2021-08-16 2021-08-16 Outpatient EITAN EITAN MEJIA [id number] [facility] 16:40:00 16:40:00 ROBERTO CROSS MD PA alWork s PA 2021-08-11 2021-08-11 Outpatient EITAN EITAN MEJIA [id number] [facility] 15:06:00 15:06:00 ROBERTO FERRERA alWork s PA 2021-08-10 2021-08-10 Outpatient EITAN EITAN MEJIA [id number] [facility] 08:30:00 08:30:00 ROBERTO FERRERA alWork s PA 2021-08-05 2021-08-05 Outpatient SANDRINE MEIER [id number] [facility] 00:00:00 00:00:00 Seybol d 2021-07-29 2021-07-29 Outpatient MAYRA ENRIQUEZ [id number] [facility] 00:00:00 00:00:00 Seybol d 2021-07-28 2021-07-28 Office Eddie Bauer [id number] [facility] 10:45:00 11:00:00 Visit Ildefonso Ng [id number] Se missy Dubose [id number] 2021-07-28 2021-07-28 Outpatient MAYRA JOY [id number] [facility] 00:00:00 00:00:00 JENSEN Seybol d 2021-07-27 2021-07-27 Outpatient MAYRA TUCKER [id number] [facility] 00:00:00 00:00:00 SUAD Seybol d 2021-07-19 2021-07-19 Outpatient YASMIN ENRIQUEZ [id number] [facility] 00:00:00 00:00:00 EYROSSY Se ybold 2021-07-14 2021-07-14 Outpatient YASMIN ENRIQUEZ [id number] [facility] 00:00:00 00:00:00 EYROSSY Se ybold 2021-07-13 2021-07-13 Outpatient MAYRA ENRIQUEZ [id number] [facility] 11:00:00 11:00:00 Seybol d 2021-07-13 2021-07-13 Office MukulmonicaMIA [id number] Mayra 09:45:00 10:00:00 Visit [facility] [id number] Se missy [id number] 2021-07-13 2021-07-13 Outpatient MAYRA SHEETS [id number] [facility] 00:00:00 00:00:00 AHMED Seybol d 2021-07-13 2021-07-13 Outpatient MAYRA ENRIQUEZ [id number] [facility] 00:00:00 00:00:00 Seybol d 2021-07-05 2021-07-05 Outpatient MAYRA LITTLE [id number] [facility] 10:45:00 10:45:00 ELY Doeybo ld 2021-06-30 2021-06-30 Outpatient MAYRA CHERRY [id number] [facility] 00:00:00 00:00:00 GENEVA Josepho ld 2021-06-30 2021-06-30 Outpatient MAYRA CHERRY [id number] [facility] 00:00:00 00:00:00 GENEVA Seybo ld 2021-06-28 2021-06-28 Outpatient EDDIE LOPEZ MAYRA ENRIQUEZ [id number] [facility] 13:30:00 13:30:00 Seybol d 2021-06-28 2021-06-28 Outpatient MAYRA JOY [id number] [facility]ra 00:00:00 00:00:00 JENSEN Seybol d 2021-06-24 2021-06-24 Outpatient MAYRA JOY [id number] [facility] 00:00:00 00:00:00 JENSEN Seybol d 2021-06-24 2021-06-24 Outpatient MAYRA JOY [id number] [facility] 00:00:00 00:00:00 JENSEN Seybol d 2021-06-23 2021-06-23 Outpatient MAYRA LITTLE [id number] [facility] 10:30:00 10:30:00 HENDERSON Seybo ld 2021-06-23 2021-06-23 Outpatient MAYRA JOY [id number] [facility] 00:00:00 00:00:00 JENSEN Seybol d 2021-06-17 2021-06-17 Outpatient MAYRA JOY [id number] [facility] 00:00:00 00:00:00 JENSEN Seybol d 2021-06-11 2021-06-11 Outpatient YASMIN ENRIQUEZ [id number] [facility] 00:00:00 00:00:00 EY ROSSY Se ybold 2021-06-11 2021-06-11 Outpatient YASMIN ENRIQUEZ [id number] [facility] 00:00:00 00:00:00 EY, ROSSY Se ybold 2021-06-10 2021-06-10 Office MIA Joy [id number] [facility] 13:45:00 14:00:00 Visit Jensen CASS [id number] Se ybold [id number] 2021-06-10 2021-06-10 Outpatient MAYRA ENRIQUEZ [id number] [facility]ra 11:30:00 11:30:00 Seybol d 2021-06-09 2021-06-09 Office MIA Sheets [id number] Mayra 13:00:00 13:15:00 Visit [facility] [id number] Se ybold [id number] 2021-06-09 2021-06-09 Outpatient MAYRA SHEETS [id number] [facility] 13:00:00 13:00:00 AHMED Seybol d 2021-06-09 2021-06-09 Outpatient EITAN EITAN MEJIA [id number] [facility] 08:30:00 08:30:00 ROBERTO sarmientoWork s MAISHA 2021-06-02 2021-06-02 Outpatient MAYRA JOY [id number] [facility] 00:00:00 00:00:00 JENSEN Seybol d 2021-05-26 2021-05-26 Outpatient MAYRA ENRIQUEZ [id number] [facility]ra 13:45:00 13:45:00 Seybol d 2021-05-07 2021-05-07 Outpatient MAYRA JOY [id number] [facility] 00:00:00 00:00:00 JENSEN Seybol d 2021-05-06 2021-05-06 Outpatient EITAN EITAN MEJIA [id number] [facility] 09:20:00 09:20:00 ROBERTO sarmientoWork s MAISHA 2021-04-29 2021-04-29 Outpatient MAYRA ENRIQUEZ [id number] [facility] 10:45:00 10:45:00 Seybol d 2021-04-16 2021-04-16 Outpatient AMYRA ENRIQUEZ [id number] [facility] 14:30:00 14:30:00 Seybol d 2021-04-09 2021-04-09 Outpatient MAYRA JOY [id number] [facility]ra 00:00:00 00:00:00 JENSEN Seybol d 2021-04-08 2021-04-08 Outpatient EITAN EITAN MEJIA [id number] [facility] 08:40:00 08:40:00 MEJIAPRAVEEN FERRERA 2021-04-01 2021-04-01 Outpatient LAB47 MAYRA ENRIQUEZ [id number] [facility]ra 15:30:00 15:30:00 Seybol d 2021-04-01 2021-04-01 Office EYL Howard [id number] [facility]ra 14:45:45 15:00:45 [id number] 2021-03-12 2021-03-12 Outpatient MAYRA JOY [id number] [facility] 00:00:00 00:00:00 JENSEN Seybol d 2021-03-10 2021-03-10 Outpatient MAYRA SHEETS [id number] [facility] 10:45:00 10:45:00 AHMED Seybol d 2021-03-04 2021-03-04 Outpatient MAYRA JOY [id number] [facility] 13:45:00 13:45:00 JENSEN Seybol d 2021-03-03 2021-03-03 Outpatient MANDEEPMAYRAON MAYRA ENRIQUEZ [id number] [facility]ra 00:00:00 00:00:00 MD NORAH Seybol d 2021-02-12 2021-02-12 Outpatient MAYRA TOTH [id number] [facility] 00:00:00 00:00:00 FAMILLI Seybol d 2021-02-12 2021-02-12 Outpatient MAYRA TOTH [id number] [facility] 00:00:00 00:00:00 FAYYAZ Seybol d 2021-02-08 2021-02-08 Outpatient ETIAN EITAN MEJIA [id number] [facility] 11:22:00 11:22:00 ROBERTO FERRERA 2021-02-05 2021-02-05 Outpatient MAYRA ENRIQUEZ [id number] [facility] 10:00:00 10:00:00 Seybol d 2021-02-05 2021-02-05 Outpatient EITAN EITAN MEJIA [id number] [facility] 08:45:00 08:45:00 ROBERTO FERRERA 2021-01-25 2021-01-25 Outpatient LAB47 MAYRA ENRIQUEZ [id number] Mayra 15:15:00 15:15:00 Seybol d 2021-01-25 2021-01-25 Outpatient FERNANDA MAYRA MAYRA [id number] Mayra 14:30:00 14:30:00 ROSSI Seybol d 2021-01-19 2021-01-19 Outpatient YASMIN ENRIQUEZ [id number] Mayra 00:00:00 00:00:00 AMITA ROSSY louis 2021-01-15 2021-01-15 Outpatient IMELDA MAYRA ENRIQUEZ [id number] Mayra 00:00:00 00:00:00 JENSEN Seybol d 2020-12-11 2020-12-11 Outpatient EITAN EITAN MEJIA [id number] [facility]Clinic 09:20:00 09:20:00 ROBERTO FERRERA 2020-11-11 2020-11-11 Outpatient EITAN EITAN MEJIA [id number] eClinic 09:00:00 09:00:00 ROBERTO FERRERA 2020-10-30 2020-11-07 Hospital ER Garcia Rustam Rickn [facility] [id number] [facility] 20:55:00 14:16:00 [facility] 2020-11-04 2020-11-04 Surgery Sarahi [facility] [id number] [facility] 15:45:00 17:20:00 [facility] 2020-11-04 2020-11-04 Anesthesia Buddy [facility] [id number] 15:45:00 16:49:00 Event Rae Verdugo [facility] 2020-10-30 2020-10-30 Emergency ER SLE Emergency [id number] [facility] 20:54:00 20:54:00 2020-10-30 2020-10-30 Travel [facility] [id number] [facility] 00:[facility]:00 [facility] 2020-10-12 2020-10-12 Outpatient EITAN EITAN MEJIA [id number] eClinic 14:30:00 14:30:00 ROBERTO CROSS MD PA alWork s PA 2020-09-09 2020-09-09 Outpatient EITAN EITAN MEJIA [id number] [...] PA 2019-06-10 2019-06-10 Outpatient [id number] eClinic 15:58:00 15:58:00 [id number] alWorks [id number]. [id number] 2019-06-10 2019-06-10 Outpatient EITAN EITAN MEJIA [id number] eClinic 15:00:00 15:00:00 ROBERTO CROSS MD PA alWork s PA Results Test Description Test Time Test Comments Results Result Comments Source AFB culture + smear (non-sputum) 2020-12-24 15:38:00 Test Item Value Reference Range Interpretation Comme nts Result (test code = 6463-4) No acid-fast bacilli isolated in 42 day s AFB Smear (test code = 74165-4) No acid fast bacilli [facility]UTUM[facility]2020-12-24 15:38:00 Test Item Value Reference Range Interpretation Comments CULTURE (BEAKER) (test No acid-fast bacilli code = 1095) isolated in 42 days AFB SMEAR (BEAKER) No acid fast bacilli (test code = 994) seen Fungus culture + [id number] 00:34:00 Test Item Value Reference Range Interpretation Comments Result (test code = No fungus isolated in 6463-4) 28 days Fungus Smear (test No fungi seen code = 1406) [facility] [id number] 00:34:00 Test Item Value Reference Range Interpretation Comments CULTURE (BEAKER) (test No fungus isolated in code = 1095) 28 days FUNGUS SMEAR (BEAKER) No fungi seen (test code = 1406) Anaerobic [id number] 07:45:00 Test Item Value Reference Range Interpretation Comments Result (test code = No anaerobes isolated 6463-4) [facility] [id number] 07:45:00 Test Item Value Reference Range Interpretation Comments CULTURE (BEAKER) (test No anaerobes isolated code = 1095) POC-Glucose [id number] 11:29:00 Test Item Value Reference Range Interpretation Comments POC-Glucose Meter (test 102 mg/dL 70-110 : TE STED AT [facility] code = 1538) 6720 [facility], 770 30: Rigging Supervisor/Techni fna ID = [id number] for WHITLEY DEMPSEY Lab Interpretation (test Normal code = 08446-6) [facility]byterianPOCT[facility]GLUCOSE [id number] 11:29:00 Test Item Value Reference Range Interpretation Comments POC-GLUCOSE METER 102 mg/dL 70-110 : TESTED A T [facility] 6720 (BEAKER) (test code = WENDY Howe [facility], 1538) 65428: Rigging Supervisor/Techni fan ID = [id number] for RAMIREZ LOZANOY SARS-CoV2/RT-PCR (Asymptomatic ONLY)2020-11-07 11:03:00 Test Item Value Reference Range Interpretation Comments SARS-COV2/RT-PCR Negative Not Detected, (test code = Negative, See 69236-0) external report for linked test SARS-COV-2 [facility] MAGALI PERFORMING LAB (test code = 35364-2) MARCELA (test code = Negative result for [...] of the Act. Fact Sheet for Healthcare Providers:https://www.Xoinkal[employer]/sites/default/f candice/product/documents/F act_Sheet_HC_Providers_L nsk_YRRT-MaP-9.pdf Fact Sheet for Healthcare Patients:https://www.NICE.[employer]/sites/default/fi les/product/documents/Fa ct_Sheet_Patients_Lyra_S ARS-CoV-2.pdf Performing Laboratory:[facility] [place] [address] [facility] ([facility])2020-11-07 11:03:00 Test Item Value Reference Range Interpretation Comments SARS-COV2/RT-PCR (test Negative Not Detected, Negative, code = 4367199) See external report for linked test SARS-COV-2 PERFORMING LAB [facility] MAGALI (test code = 8073612) Negative result for this test determines that [...] of the Act.Fact Sheet for Healthcare Prov iders:https://www.PathCentral.[employer]/sites/default/files/product/documents/Fact_Sheet_HC _Cubtbgbhr_Vybm_YRLF-BoY-4.pdfFact Sheet for Healthcare Patients:https://www.[employer]Central.[employer]/sites/default/files/product/docume nts/Bana_Kuwcq_Jxrmzlor_Tkuo_LSZY-KiN-0.pdfPerforming Laboratory:[facility], [place] [address]IKAYYRRPIR OBTAINED CULTURE + GRAM [id number] 10:18:00 Test Item Value Reference Range Interpretation [...] gram negative (BEAKER) (test code = rods 935050) POCT-GLUCOSE [id number] 07:18:00 Test Item Value Reference Range Interpretation Comments POC-GLUCOSE METER 88 mg/dL 70-110 : TESTED A T [facility] 6720 ([employer]) (test code = [facility], 1538) 407[address]: Rigging Supervisor/Techni fan ID = [id number] for STERLING EN, WHITLEY POCT-GLUCOSE [id number] 21:15:00 Test Item Value Reference Range Interpretation Comments POC-GLUCOSE METER 90 mg/dL 70-110 : TESTED A T [facility] 6720 (BEAKER) (test code = [facility], 1538) 91282: Rigging Supervisor/Techni fan ID = [id number] for SEMI EN, ISRRAEL POCT-GLUCOSE [id number] 16:43:00 Test Item Value Reference Range Interpretation Comments POC-GLUCOSE METER 93 mg/dL 70-110 : TESTED A T [facility] 6720 (BEAKER) (test code = [facility], 1538) 57510: Rigging Supervisor/Techni fan ID = [id number] for STERLING EN, WHITLEY POCT-GLUCOSE [id number] 11:31:00 Test Item Value Reference Range Interpretation Comments POC-GLUCOSE METER 93 mg/dL 70-110 : TESTED A T [facility] 6720 (BEAKER) (test code = [facility], 153) 50347: Rigging Supervisor/Techni fan ID = [id number] for STERLING WHITLEY EDWARD POCT-GLUCOSE [id number] 08:06:00 Test Item Value Reference Range Interpretation Comments POC-GLUCOSE METER 95 mg/dL 70-110 : TESTED A T [facility] 6720 (BEAKER) (test code = [facility], 153) 37938: Rigging Supervisor/Techni fan ID = [id number] for STERLING WAGNER WHITLEY POCT-GLUCOSE [id number] 00:16:00 Test Item Value Reference Range Interpretation Comments POC-GLUCOSE METER 116 mg/dL 70-110 H : TESTED A T [facility] 6720 (BEAKER) (test code = [facility], 153) 69450: Rigging Supervisor/Techni fan ID = [id number] for Abi Flores POCT-GLUCOSE [id number] 19:10:00 Test Item Value Reference Range Interpretation Comments POC-GLUCOSE METER 84 mg/dL 70-110 : TESTED A T [facility] 6720 (BEAKER) (test code = [facility], 153) 37710: Rigging Supervisor/Techni fan ID = [id number] for HUMBERTO ALFRED SPIN/CONCENTRATION [id number] 14:30:00 Test Item Value Reference Range Interpretation Comments Concentration charged (test code = Done 2657) [facility] [id number] 14:30:00 Test Item Value Reference Range Interpretation Comments CONCENTRATION CHARGED (BEAKER) (test Done code = 2657) POCT-GLUCOSE [id number] 12:14:00 Test Item Value Reference Range Interpretation Comments POC-GLUCOSE METER 171 mg/dL 70-110 H : TESTED A T [facility] 6720 (BEAKER) (test code = [facility], 153) 12648: Rigging Supervisor/Techni fan ID = [id number] for HUMBERTO CRAIN Basic Metabolic [id number] 06:51:00 Test Item Value Reference Range Interpretation Comments Sodium (test code = 142 meq/L 496-618 4002-2) Potassium (test code = 4.5 meq/L 3.5-5.1 2823-3) Chloride (test code = 108 meq/L 98-107 H 5-0) CO2 (test code = 25 meq/L 8-9) BUN (test code = 17 mg/dL 7-21 3094-0) Creatinine (test code 0.58 mg/dL 0.57-1.25 = 2160-0) Glucose (test code = 118 mg/dL 70-105 H 2345-7) Calcium (test code = 9.5 mg/dL 8.4-10.2 93712-9) EGFR (test code = 126 mL/min/1.73 [place] [address]-9) NOT ACCURATE CREATININE CLEARANCE IN PREDICTING GLOMERULAR FILTRATION RATE . ESTIMATED GFR I S NOT APPLICABLE FOR DIALYSIS PATIENTS. MARCELA (test code = MARCELA) Rigging Supervisor ID - HEIDY M Lab Interpretation Abnormal (test code = 05897-3) [facility]byterian[facility]esium2021-04-29 06:51:00 Test Item Value Reference Range Interpretation Comments Magnesium (test code = 2.4 mg/dL 1.6-2.6 00067-3) MARCELA (test code = MARCELA) Rigging Supervisor ID - HEIDY M Lab Interpretation (test Normal code = 96716-7) [facility]byterianPhosphorus2021-04-29 06:51:00 Test Item Value Reference Range Interpretation Comments Phosphorus (test code = 2.8 mg/dL 2.3-4.7 2777-1) MARCELA (test code = MARCELA) Rigging Supervisor ID - HEIDY M Lab Interpretation (test Normal code = 89985-3) [facility]byterianBASIC METABOLIC [id number] 06:51:00 Test Item Value Reference Range Interpretation Comments SODIUM (BEAKER) 142 meq/L 136-145 (test code = 381) POTASSIUM (BEAKER) 4.5 meq/L 3.5-5.1 (test code = 379) CHLORIDE (BEAKER) 108 meq/L 98-107 H (test code = 382) CO2 (BEAKER) (test 25 meq/L code = 355) BLOOD UREA NITROGEN 17 [...] S NOT APPLICABLE FOR DIALYSIS PATIEN TS. Rigging Supervisor ID - HEIDY [id number] 06:51:00 Test Item Value Reference Range Interpretation Comments MAGNESIUM (BEAKER) (test code = 2.4 mg/dL 1.6-2.6 627) Rigging Supervisor ID - HEIDY [id number] 06:51:00 Test Item Value Reference Range Interpretation Comments PHOSPHORUS (BEAKER) (test code = 2.8 mg/dL 2.3-4.7 604) Rigging Supervisor ID - HEIDY MPOCT-GLUCOSE [id number] 06:09:00 Test Item Value Reference Range Interpretation Comments POC-GLUCOSE METER 137 mg/dL 70-110 H : TESTED A T [facility] 6720 (BEAKER) (test code = [facility], 1538) 82299: Rigging Supervisor/Techni fan ID = [id number] for GR AHAM, TAYLA POCT-GLUCOSE [id number] 00:45:00 Test Item Value Reference Range Interpretation Comments POC-GLUCOSE METER 182 mg/dL 70-110 H : TESTED A T [facility] 6720 (BEAKER) (test code = [facility], 1538) 14544: Rigging Supervisor/Techni fan ID = [id number] for GR AHAM, TAYLA POCT-GLUCOSE [id number] 18:31:00 Test Item Value Reference Range Interpretation Comments POC-GLUCOSE METER 140 mg/dL 70-110 H : TESTED A T [facility] 6720 (BEAKER) (test code = [facility], 1538) 26960: Rigging Supervisor/Techni fan ID = [id number] for DA VIS, KEYAIRA POCT-GLUCOSE [id number] 12:33:00 Test Item Value Reference Range Interpretation Comments POC-GLUCOSE METER 137 mg/dL 70-110 H : TESTED A T [facility] 6720 (BEAKER) (test code = [place]END[place], 1538) [address]: Rigging Supervisor/Techni fan ID = [id number] for HUMBERTO CRAIN POCT-GLUCOSE [id number] 06:09:00 Test Item Value Reference Range Interpretation Comments POC-GLUCOSE METER 122 mg/dL 70-110 H : TESTED A T [facility] 6720 (BEAKER) (test code = WEND[place], 1538) [address]: Rigging Supervisor/Techni fan ID = [id number] for JANAY SILVA BASIC METABOLIC [id number] 04:55:00 Test Item Value Reference Range Interpretation [...] S NOT APPLICABLE FOR DIALYSIS PATIEN TS. Rigging Supervisor ID - CARA [id number] 04:55:00 Test Item Value Reference Range Interpretation Comments MAGNESIUM (BEAKER) (test code = 2.1 mg/dL 1.6-2.6 627) Rigging Supervisor ID - CARA [id number] 04:55:00 Test Item Value Reference Range Interpretation Comments PHOSPHORUS (BEAKER) (test code = 2.1 mg/dL 2.3-4.7 L 604) Rigging Supervisor ID - CARA ROSALES, [id number] 01:09:00 Test Item Value Reference Range Interpretation Comments Rh Factor (test code = 2589) NEG ABO Grouping (test code = 2588) A [facility]byterianPOCT-GLUCOSE [id number] 23:52:00 Test Item Value Reference Range Interpretation Comments POC-GLUCOSE METER 123 mg/dL 70-110 H : TESTED A T [facility] 6720 (BEAKER) (test code = [facility], 153) 30610: Rigging Supervisor/Techni fan ID = [id number] for PE CADENCE, JANAY Type and screen, [id number] 22:05:00 Test Item Value Reference Range Interpretation Comments ABO/RH AUTOMATED (AKER) (test A NEGATIVE code = 2260) Ab Scrn (test code = 890-4) NEGATIVE [facility]byterianPOCT-GLUCOSE [id number] 18:14:00 Test Item Value Reference Range Interpretation Comments POC-GLUCOSE METER 187 mg/dL 70-110 H : TESTED A T [facility] 6720 (BEAKER) (test code = [facility], 153) 29274: Rigging Supervisor/Techni fan ID = [id number] for Ag batah, Mckenzie POCT-GLUCOSE [id number] 11:31:00 Test Item Value Reference Range Interpretation Comments POC-GLUCOSE METER 110 mg/dL 70-110 : TESTED A T [facility] 6720 (BEAKER) (test code = [facility], 153) 38123: Rigging Supervisor/Techni fan ID = [id number] for Ag batah, Mckenzie POCT-GLUCOSE [id number] 05:59:00 Test Item Value Reference Range Interpretation Comments POC-GLUCOSE METER 116 mg/dL 70-110 H : TESTED A T [facility] 6720 (BEAKER) (test code = [facility], 1538) 49257: Rigging Supervisor/Techni fan ID = [id number] for ISRRAEL RUSSELL [id number] 05:51:00 Test Item Value Reference Range Interpretation Comments Triglycerides (test 167 mg/dL code = 2571-8) MARCELA (test code = MARCELA) TRIGLYCERIDE REFERENCE RANGELow Risk <150Borderline Risk 150-199High Risk 200-499Very High Risk >=500Operator ID - HEIDY Toth [facility] PresbyterianBASI METABOLIC [id number] 05:51:00 Test Item Value Reference Range Interpretation [...] S NOT APPLICABLE FOR DIALYSIS PATIEN TS. Rigging Supervisor ID - HEIDY [id number] 05:51:00 Test Item Value Reference Range Interpretation Comments MAGNESIUM (BEAKER) (test code = 1.7 mg/dL 1.6-2.6 627) Rigging Supervisor ID - HEIDY [id number] 05:51:00 Test Item Value Reference Range Interpretation Comments PHOSPHORUS (BEAKER) (test code = 2.5 mg/dL 2.3-4.7 604) Rigging Supervisor ID - HEIDY [id number] 05:51:00 Test Item Value Reference Range Interpretation Comments TRIGLYCERIDES (BEAKER) (test code = 167 mg/dL 540) TRIGLYCERIDE REFERENCE RANGELow Risk <150Borderline Risk 150-199High Risk 200-499Very High Risk >=500Operator ID - HEIDY MCBC with platelet count + automated [id number] 05:22:00 Test Item Value Reference Range Interpretation Comments WBC (test code = 6690-2) 4.3 See_Comment [A utomated message] The system [employer] generated this result transmitted ref erence range: 3.5 - 10 .5 K/L. The refe rence range was not u sed to interpret this result as normal/abnor mal. RBC (test code = 789-8) 3.21 See_Comment L [Au tomated message] The system [employer] generated this result transmitted ref erence range: 3.93 - 5 .22 M/L. The refe rence range was not u sed to interpret this result as normal/abnor mal. MCHC (test code = 786-4) 33.7 See_Comment L [A utomated message] The system [employer] generated this result transmitted ref erence range: [...] See_Comment [Aut omated message] 777-3) The system [employer] generated this result transmitted ref erence range: 150 - 45 0 K/CU MM. The referen ce range was not u sed to interpret this result as normal/abnor mal. MPV (test code = 10.2 fL 9.4-12.3 36316-2) nRBC (test code = 413) 0 See_Comment [Aut omated message] The system [employer] generated this result transmitted ref erence range: [...] See_Comment [Aut omated message] 670) The system [employer] generated this result transmitted ref erence range: 1.56 - 6 .13 K/L. The refe rence range was not u sed to interpret this result as normal/abnor mal. # Lymphs (test code = 1.47 See_Comment [Auto mated message] 414) The system [employer] generated this result transmitted ref erence range: 1.18 - 3 .74 K/L. The refe rence range was not u sed to interpret this result as normal/abnor mal. # Monos (test code = 0.63 See_Comment H [Autom ated message] 415) The system [employer] generated this result transmitted ref erence range: 0.24 - 0 .36 K/L. The refe rence range was not u sed to interpret this result as normal/abnor mal. # Eos (test code = 416) 0.03 See_Comment L [Au tomated message] The system [employer] generated this result transmitted ref erence range: 0.04 - 0 .36 K/L. The refe rence range was not u sed to interpret this result as normal/abnor mal. # Baso (test code = 417) 0.03 See_Comment [A utomated message] The system [employer] generated this result transmitted ref erence range: 0.01 - 0 .08 K/L. The refe rence range was not u sed to interpret this result as normal/abnor mal. Immature 1 % 0-1 Granulocytes-Relative (test code = 2801) Lab Interpretation (test Abnormal code = 18271-4) [facility] W/PLT COUNT & AUTO [id number] 05:22:00 Test Item Value Reference Range Interpretation [...] PERCENT (BEAKER) (test code = 2801) POCT-GLUCOSE [id number] 23:56:00 Test Item Value Reference Range Interpretation Comments POC-GLUCOSE METER 114 mg/dL 70-110 H : [facility] (BE[facility]ER[facility] (test code = [place], 1538) [address]: Rigging Supervisor/Techni fan ID = [id number] for ISRRAEL RUSSELL Clostridium difficile GDH [id number] 21:39:00 Test Item Value Reference Range Interpretation Comments C. Difficle Toxin Negative Negative (test code = 0765057268) C. Difficile GDH Negative Negative No indicati on of Antigen (test code = Clostri dium 4629350620) difficile infection and n o colonization. Discontinue enteric isolati on and therapy. MARCELA (test code = Testing performed MARCELA) by [employer] Rapid Cassette Assay. For GDH, published sensitivity of the assay is 98.7% compared to cytotoxicity testing. For Toxin AB, published sensitivity is 87.8% and specificity 99.4% compared to cytotoxicity testing.Verificati on of kit performance was done by the [facility] Microbiology Lab prior to clinical use. Lab Interpretation Normal (test code = 10993-2) [facility]. DIFFICILE GDH [id number] 21:39:00 Test Item Value Reference Range Interpretation Comments CDT TOXIN (test code Negative Negative = 0552867237) CDT GDH ANTIGEN (test Negative Negative No ind ication of code = 3839235549) Clostridi um difficile infection and n o colonization. Discontinue ent thee isolation and t herapy. Testing performed by [employer] Rapid Cassette Assay. For GDH, published sensitivity of the assay is 98.7% compared to cytotoxicity testing. For Toxin AB, published sensitivity is 87.8% and specificity 99.4% compared to cytotoxicity testing.Verification of kit performance was done by the [facility] MicrobiologyLab prior to clinical use.POCT-GLUCOSE [id number] 16:00:00 Test Item Value Reference Range Interpretation Comments POC-GLUCOSE METER 114 mg/dL 70-110 H : TESTED A T [facility] 6720 ([employer]) (test code = [employer] [facility], 1538) 19008: Rigging Supervisor/Techni fan ID = [id number] for DA VIS, KEYAIRA POCT-GLUCOSE [id number] 11:35:00 Test Item Value Reference Range Interpretation Comments POC-GLUCOSE METER 107 mg/dL 70-110 : TESTED A T [facility] 6720 (BEAKER) (test code = [employer] [facility], 1538) 30105: Rigging Supervisor/Techni fan ID = [id number] for DA VIS, KEYAIRA Blood Culture # [...] rods Lab Interpretation Abnormal (test code = 67800-3) [facility]byterianBLOOD [id number] 10:58:00 Test Item Value Reference Range Interpretation Comments CULTURE A From Aerobic An d (BEAKER) (test Anaerobic Bot tles Same code = 1095) organism has be en isolated from cultures(s) of the same body site and collection date . Repeat identifi cation and susceptibil ity testing perform ed only after consultat ion with the [facility] al microbiology laboratory.Refe r to previous cultur e ofEscherichia c roldan GRAM STAIN From aerobic and RESULT (BEAKER) anaerobic (test code = bottles: gram 1123) negative rods BLOOD [id number] 10:57:00 Test Item Value Reference Range Interpretation [...] Not detected Not detected (test code = 55776-2) STAPHYLOCOCCUS (test Not detected Not detected code = 57165-0) STAPHYLOCOCCUS AUREUS Not detected Not detected (test code = 81526-4) Streptococcus (test Not detected Not detected code = 90051-0) STREPTOCOCCUS Not detected Not detected AGALACTIAE (GROUP B) (test code = 98368-5) STREPTOCOCCUS Not detected Not detected PNEUMONIAE (test code = 50680-7) Streptococcus pyogenes Not detected Not detected (Group A) (test code = 72356-9) ACINETOBACTER BAUMANNII Not detected Not detected (test code = 67175-3) HAEMOPHILUS INFLUENZAE Not detected Not detected (test code = 29705-1) NEISSERIA MENINGITIDIS Not detected Not detected (test code = 61952-3) ENTEROBACTERIACEAE Detected Not detected A (test code = 53460-4) ENTEROBACTER CLOACOE Not detected Not detected COMPLEX (test code = 62652-7) KLEBSIELLA OXYTOCA Not detected Not detected (test code = 91319-1) KLEBSIELLA PNEUMONIAE Not detected Not detected (test code = 44779-8) PROTEUS (test code = Not detected Not detected 01956-8) SERRATIA MARCESCENS Not detected Not detected (test code = 79143-9) DANIEL ALBICANS (test Not detected Not detected code = 24969-1) DANIEL GLABRATA (test Not detected Not detected code = 42963-8) DANIEL KRUSEI (test Not detected Not detected code = 99126-3) DANIEL PARAPSILOSIS Not detected Not detected (test code = 09152-9) DANIEL TROPICALIS Not detected Not detected (test code = 73676-6) ESCHERICHIA COLI (test Detected Not detected A Esche richia code = 65735-3) coliKPC not detected (a carbapenamase gene)First-line therapy: MeropenemDe-esc ala te based on susceptibilitie s.T his test does n ot evaluate for ESBLReference Range: Not Detected METHICILLIN-RESISTANCE GENE (test code = 45468-4) VANCOMYCIN-RESISTANCE GENE (test code = 57531-0) CARBAPENEM-RESISTANCE Not detected Not detected Note: GENE (test code = Antimicrob ial 09098-3) resistance can occur via multi ple mechanisms. [...] (test code Not detected Not detected = 09071-8) PSEUDOMONAS AERUGINOSA Not detected Not detected (test code = 45040-5) MARCELA (test code = MARCELA) Other bacteria and resistance markers not targeted by this PCR panel cannot be excluded; therefore clinical correlation and follow up of serology, culture results, and other molecular studies is required. The results are not intended to be used as the sole means for clinical diagnosis or patient management decisions. This sample was tested at the [facility] Molecular Diagnostics Laboratory using the [employer] Blood Culture ID Panel. It is FDA cleared and has been verified and approved by the [facility] Molecular Diagnostics Laboratory for clinical use. This laboratory is CLIA-certified and [employer] [place] [employer] (CAP)-accredited to perform high complexity testing. Lab Interpretation Abnormal (test code = 73770-4) [facility]byterian[facility] C[facility] IDENTIFICATION [id number] 10:53:00 Test Item Value Reference Interpretation Comments Range LISTERIA MONOCYTOGENES Not detected Not detected (test code = 7620699) STAPHYLOCOCCUS (test Not detected Not detected code = 1448845) STAPHYLOCOCCUS AUREUS Not detected Not detected (test code = 8791081) STREPTOCOCCUS (test code Not detected Not detected = 9862481) STREPTOCOCCUS AGALACTIAE Not detected Not detected (GROUP B) (test code = 1589635) STREPTOCOCCUS PNEUMONIAE Not detected Not detected (test code = 3791689) STREPTOCOCCUS PYOGENES Not detected Not detected (GROUP A) (test code = 2197636) ACINETOBACTER BAUMANNII Not detected Not detected (test code = 4245749) HAEMOPHILUS INFLUENZAE Not detected Not detected (test code = 9165978) NEISSERIA MENINGITIDIS Not detected Not detected (test code = 9162655) ENTEROBACTERIACEAE (test Detected Not detected A code = 3790016) ENTEROBACTER CLOACOE Not detected Not detected COMPLEX (test code = 9131329) KLEBSIELLA OXYTOCA (test Not detected Not detected code = 9800907) KLEBSIELLA PNEUMONIAE Not detected Not detected (test code = 1650) PROTEUS (test code = Not detected Not detected 6715428) SERRATIA MARCESCENS Not detected Not detected (test code = 4055888) DANIEL ALBICANS (test Not detected Not detected code = 6829787) DANIEL GLABRATA (test Not detected Not detected code = 0580884) DANIEL KRUSEI (test Not detected Not detected code = 7449427) DANIEL PARAPSILOSIS Not detected Not detected (test code = 7799091) DANIEL TROPICALIS (test Not detected Not detected code = 6027566) ESCHERICHIA COLI (test Detected Not detected A Esche richia coliKPC code = 4171077) not detected (a carbapenamase gene)First-line therapy: MeropenemDe-esc alat e based on susceptibilitie s.Th is test does no t evaluate for ESBLReference Range: Not Dete cted METHICILLIN-RESISTANCE GENE (test code = 3164158) VANCOMYCIN-RESISTANCE GENE (test code = 7492551) CARBAPENEM-RESISTANCE Not detected Not detected Note: Antimicrobial GENE (test code = resistance can 7148084) occur via multi ple mechanisms. A N ot Detected result for the BareedEEArray antimicrobial resistance gene assays does not indicate [...] Not detected Not detected (test code = 2692687) PSEUDOMONAS Not detected Not detected AERUGINOSA-BEAKER (test code = 2198166) Other bacteria and resistance markers not targeted by this PCR panel cannot be excluded; therefore clinical correlation and follow up of serology, culture results, and other molecular studies is required. The results are not intended to be used as the sole means for clinical diagnosis or patient management decisions. This sample was tested at the [facility] using the App[employer] Blood Culture ID Panel. It is FDA cleared and has been verified and approved by the [facility] for clinical use. This laboratory is CLIA-certified and College ofAmerican Pathologists (CAP)-accredited to perform high complexity testing.Manual [id number] 07:58:00 Test Item Value Reference Range Interpretation [...] = 3438) MARCELA (test code = MARCELA) Rigging Supervisor ID - Kayce Luu comments: Slide comments: Lab Interpretation Abnormal (test code = 24343-3) [facility] W/PLT COUNT & AUTO [id number] 07:58:00 Test Item Value Reference Range Interpretation [...] CONCENTRATION Decreased (CELLAVISION)(BEAKER) (test code = 3438) Rigging Supervisor ID - Kayce Luu comments: Slide comments:POCT-GLUCOSE METER 2020-11-02 06:13:00 Test Item Value Reference Range Interpretation Comments POC-GLUCOSE METER 109 mg/dL 70-110 : TESTED A T [facility] 6720 (BEAKER) (test code = WENDY [facility], 1538) [address]: Rigging Supervisor/Techni fan ID = [id number] for ALEX CADENCE JANAY BASIC METABOLIC [id number] 06:01:00 Test Item Value Reference Range Interpretation [...] S NOT APPLICABLE FOR DIALYSIS PATIEN TS. Rigging Supervisor ID - HEIDY MPOCT-GLUCOSE ONIFO5139-08-03 20:25:00 Test Item Value Reference Range Interpretation Comments POC-GLUCOSE METER 108 mg/dL 70-110 : TESTED A T [facility] 6720 (DINESH) (test code = WEND[place], 1538) [address]: Rigging Supervisor/Techni fan ID = [id number] for ES GOLDEN JACKSON RAD, CHEST, 1 VIEW, NON [id number] 12:43:00Reason for exam:->PICC placementShould this be performed at the bedside?->Yes [facility] ALIDALENAYULISS[facility] CHINO : 1955 Sex: FFINAL REPORT AP view of the chest dated 11/01/2020 COMPARISON: July 25, 2018 CLINICAL INFORMATION: PICC placement Comment: Since prior examination, there is interval placement of a right PICC line with the tip seen in the superior vena cava. No other changes are seen in the chest. Signed: Vishnu Lueport Verified Date/Time: 11/01/2020 12:43:02 Reading Location: [address] Consult Reading Room Hepatic function [id number] 07:06:00 Test Item Value Reference Range Interpretation [...] 2.8 g/dL 3.5-5.0 L Specime n slightly 20410-8) hemolyzed Total Bilirubin (test 0.4 mg/dL 0.2-1.2 [...] 1742-6) hemolyzed MARCELA (test code = MARCELA) Rigging Supervisor ID - HEIDY Toth Lab Interpretation Abnormal (test code = 45013-3) [facility] [id number] 07:06:00 Test Item Value Reference Range Interpretation [...] S NOT APPLICABLE FOR DIALYSIS PATIEN TS. Rigging Supervisor ID - HEIDY MALCOLMEPATIC FUNCTION [id number] 07:06:00 Test Item Value Reference Range Interpretation [...] Specimen slightly (test code = 347) hemolyzed Rigging Supervisor ID - HEIDY [facility] W/PLT COUNT & AUTO [id number] 06:30:00 Test Item Value Reference Range Interpretation [...] PERCENT (BEAKER) (test code = 2801) SARS-COV2/RT-PCR ([facility])2020-10-30 23:48:00 Test Item Value Reference Range Interpretation Comments SARS-COV2/RT-PCR Negative Not Detected, Performanc e of the Xpert (test code = Negative, See Xpress 4848851) external report SARS-CoV-2/F frank/RSV test for linked [...] sooner.Fact She et for Healthcare Prov iders: https://www.[employer]osia.[employer]/ Documents/Xpert %20Xpress %97TWZR-MqQ-5-F frank-RSV/30 2-4508%20Rev.%2 0B%20HCP% 20Fact%20Sheet. pdfFact Sheet for Healt hcare Patients: https://www.[employer]/ Documents/Xpert %20Xpress %12LFFV-HqH-9-F frank-RSV/30 2-4507%20Rev.%2 0B%20Pati ent%20Fact%20Sh eet.pdf SARS-COV-2 Favian Performed at:MANDO Webber [facility] PERFORMING LAB [facility] (test code = Zklhpd2227 [facility] 6197601) [place], [place] [address]qh: [phone] CT, [id number] 23:32:00Unlisted Reason for Exam - Click Yes and Enter Reason Below->YesUnlisted Reason for Exam->RUQ abdominal abscessWill this procedure require oral contrast?->No [facility] CENTERName: YULISSA IRWIN : 1955 [...] Spleen: No significant findings. Adrenal Glands: No s ignificant findings. Kidneys and ureters: There is heterogeneous enhancement of the left kidney. No perinephric fluid collection to suggest abscess. 1.9 cm cyst in the midpole right kidney. Stomach andDuodenum: Postsurgical changes of gastric bypass. There is [...] wall and duodenum measures 1.2 cm in d iameter. A fingerlike projection of the collection also [...] Venous (test code = 1.30 mmol/L 0.50-2.20 2871) Lab Interpretation (test code = Normal 97045-0) [facility] PresbyterianLACTIC ACID, [id number] 22:32:00 Test Item Value Reference Range Interpretation Comments LACTATE BLOOD VENOUS (2) (BEAKER) 1.30 mmol/L 0.50-2.20 (test code = 2872) Prothrombin time/[id number] 22:31:00 Test Item Value Reference Interpretation Comments [...] valves. Lab Interpretation Normal (test code = 29155-5) [facility] PresbyterianaPTT2021-04-23 22:31:00 Test Item Value Reference Range Interpretation Comments PTT (test code = 92809-1) 32.2 See_Comment [ Automated message] The system [employer] generated this result transmitted ref erence range: 25.8 - 3 4.5 seconds. The re ference range was not u sed to interpret this result as normal/abnor mal. Lab Interpretation (test Normal code = 10330-1) [facility]byterianAPTT2021-04-23 22:31:00 Test Item Value Reference Range Interpretation Comments PARTIAL THROMBOPLASTIN TIME 32.2 seconds 25.8-34.5 (BEAKER) (test code = 760) PROTHROMBIN TIME/[id number] 22:31:00 Test Item Value Reference Range Interpretation Comments PROTIME (BEAKER) 11.7 seconds 9.8-12.0 (test code = 759) INR (BEAKER) (test 1.04 See_Comment [Automat ed message] code = 370) The system [employer] generated this result transmitted ref erence range: [...] Albumin (test code = 3.7 g/dL 3.5-5.0 92145-8) Alkaline Phosphatase 111 U/L 30-115 (test code [...] Calcium (test code = 9.7 mg/dL 8.5-10.5 09379-8) AST (test code = 23 U/L 5-40 1920-8) ALT (test code = 24 U/L 5-50 1742-6) EGFR (test code = 107 mL/min/1.73 [place] [address]-4) NOT ACCURATE CREATININE CLEARANCE IN PREDICTING GLOMERULAR FILTRATION RATE . ESTIMATED GFR I S NOT APPLICABLE FOR DIALYSIS PATIEN TS. Lab Interpretation Abnormal (test code = 33524-4) [facility] PresbyterianCOMPREHENSIVE METABOLIC [id number] 22:28:00 Test Item Value Reference Range Interpretation [...] PATIEN TS. CBC W/PLT COUNT & AUTO [id number] 22:22:00 Test Item Value Reference Range Interpretation [...] L 0.00-0.20 (test code = 417) VITAMIN [id number] 11:15:00 Test Item Value Reference Range Interpretation Comments VITAMIN A (test 10.7 Vitamin A, S erumVitamin A 10.7 code = SARAH) Low ug/dL 22.0- 69.5 01Reference intervals for v itamin A determined from LabCorpinternal studies. Individuals wit h vitamin A less than 20 ug/dL areconsideredvi tamin A deficient and those with serum concentrations wsrxdxsi69 ug/dL are considered severely deficient.This test was developed and its perform ance characteristics determined by [facility]. It has not been cleared or approvedby [facility] Food and Drug Administration [id number] 07:54:00 Test Item Value Reference Range Interpretation Comments ZINC (test Test not performed () TRACE MUSA MENT (EDTA) code = ZI) ug/dL TUBE WAS SENT; WHOLE BLOODWHOLE BLOO D ZINC (TC 417394) WAS DONE TO REPLACE WRON G TEST CODE WHICHIS FO R SERUM;ZINC,WHOL E BLOOD RESULT : 679 UG/DL REFERENCE RANGE 440-860 UG/DLSe rum specimen was re ceived improperly sepa rated. Serumshould be from cells within one hour ofcollection.No tified Ade Sacrament o at setrwyy65/31/20 20 Detection Limit = 5 VITAMIN B1 (THIAMINE)2020-05-13 17:08:00 Test Item Value Reference Range Interpretation Comments VITAMIN B1 109.6 nmol/L 66.5-200.0 Performed At: B N (THIAMINE) (test [facility] code = VITB1) [address] [place], [place] [id number] ra Ricardo CROSS Ph:[phone] [id number] 05:52:00 Test Item Value Reference Range Interpretation Comments GLUBED (test code = GLUBED) 109 MG/DL 70-105 H [id number] 20:55:00 Test Item Value Reference Range Interpretation Comments GLUBED (test code = GLUBED) 113 MG/DL 70-105 H BASIC METABOLIC [id number] 18:15:00 Test Item Value Reference Range Interpretation [...] code 8.5 mg/dL 8.5-10.5 N = CA) [id number] 16:21:00 Test Item Value Reference Range Interpretation Comments GLUBED (test code = GLUBED) 101 MG/DL 70-105 N [id number] 11:30:00 Test Item Value Reference Range Interpretation Comments GLUBED (test code = GLUBED) 146 MG/DL 70-105 H CBC W/AUTO [id number] 08:33:00 Test Item Value Reference Range Interpretation [...] 9.9 fL 8.6-12.6 N = MPV) WBC [id number] 08:33:00 Test Item Value Reference Range Interpretation [...] MORPHOLOGY (test code = NORMAL NORMAL PLTMORPH) [id number] 08:10:00 Test Item Value Reference Range Interpretation Comments MAGNESIUM (test code = MAG) 1.9 mg/dl 1.8-2.5 N BASIC METABOLIC [id number] 08:09:00 Test Item Value Reference Range Interpretation Comments SODIUM (test code 138 mmol/L 135-145 N = NA) POTASSIUM (test 2.5 mmol/L 3.6-5.0 LL Critical Sindi ue code = K) reported toFirs t Name:EWA Brice Name:JUMANA EVGENY READ BACK AND VERIFIEDby N.LAB.NB1, on 05/08/20, [...] mg/dL 8.5-10.5 N = CA) CBC W/AUTO [id number] 07:55:00 Test Item Value Reference Range Interpretation [...] 9.9 fL 8.6-12.6 N = MPV) WBC [id number] 07:55:00 Test Item Value Reference Range Interpretation Comments TOTAL CELLS COUNTED (test code = TCC) #CELLS RBC MORPHOLOGY COMMENT (test code = NORMAL MOC) PLATELET MORPHOLOGY (test code = NORMAL PLTMORPH) CBC W/AUTO [id number] 07:55:00 Test Item Value Reference Range Interpretation [...] 9.9 fL 8.6-12.6 N = MPV) WBC [id number] 07:55:00 Test Item Value Reference Range Interpretation Comments TOTAL CELLS COUNTED (test code = TCC) #CELLS RBC MORPHOLOGY COMMENT (test code = NORMAL MOC) PLATELET MORPHOLOGY (test code = NORMAL PLTMORPH) CBC W/AUTO [id number] 07:52:00 Test Item Value Reference Range Interpretation [...] (test code = EO#) x10 3/uL 0.0-0.5 [id number] 05:44:00 Test Item Value Reference Range Interpretation Comments GLUBED (test code = GLUBED) 110 MG/DL 70-105 H VITAMIN D 06-[id number] 22:25:00 Test Item Value Reference Range Interpretation Comments VITAMIN D 25-HYDROXY 41 ng/ml 30-100 N Interpr etive Data :Vit D (test code = VITD25) 25 Hydr oxy Vit D Status Vit OH Vit D Co nc Range(ng/mL) De ficient < 20 Insufficient 20 - < 30 Sufficient 30 - 100 Upper Safety Limit > 100 [id number] 20:49:00 Test Item Value Reference Range Interpretation Comments GLUBED (test code = GLUBED) 149 MG/DL 70-105 H [id number] 16:58:00 Test Item Value Reference Range Interpretation Comments GLUBED (test code = GLUBED) 118 MG/DL 70-105 H THYROID REFLEX TO [id number] 12:37:00 Test Item Value Reference Range Interpretation Comments THYROID REFLEX TO FT4 (test code 1.180 uIU/ml 0.450-5.330 N = TSHREFLEX) [id number] 11:24:00 Test Item Value Reference Range Interpretation Comments GLUBED (test code = GLUBED) 120 MG/DL 70-105 H FOLIC [id number] 11:12:00 Test Item Value Reference Range Interpretation Comments FOLIC ACID (test code = FOL) 14.29 ng/ml 6.59-20.0 N [id number] 11:06:00 Test Item Value Reference Range Interpretation Comments FERRITIN (test code = SHANTELLE) 247 ng/mL 11-307 N - XR SMALL [id number] 10:49:00 [facility] [place] : 1955 Sex: FPatient Name: YULISSA IRWIN Unit No: [id number] EXAMS: CPT: [id number] XR SMALL BOWEL 13785 SMALL BOWEL SERIES: Comparison: CT abdomen and [...] (1052) BATCH NO: N/A Name: YULISSA IRWIN [facility] Phys: LEESE. - Desmond Vazquez MD [address] [facility] : 1955 Age: 64 Sex: F [place], [place] [address] Loc: N.6032 1 Exam Date: 05/07/2020 Status: ADM IN PH: FAX: PAGE 1 Signed Report [id number] 07:47:00 Test Item Value Reference Range Interpretation Comments PREALBUMIN (test code = PREALB) 6.4 mg/dl 18-38 L [id number] 05:17:00 Test Item Value Reference Range Interpretation Comments GLUBED (test code = GLUBED) 136 MG/DL 70-105 H [id number] 20:01:00 Test Item Value Reference Range Interpretation Comments GLUBED (test code = GLUBED) 121 MG/DL 70-105 H - MRI BRAIN W/O [id number] 10:34:00 [facility] : 1955 Sex: FPatient Name: YULISSA IRWIN Unit No: [id number] EXAMS: CPT: [id number] MRI BRAIN W/O CONTRAST 65168 PROCEDURE: MRI BRAIN WITHOUT INTRAVENOUS GADOLINIUM COMPARISON: [...] infarction, or inappropriate atrophy. BRAINSTEM: No edema, hemorr herbie, mass, acute infarction, or inappropriate atrophy. CSF [...] Lawson MD; Undefined Provider Technologist: Partha Foster [facility] Dt/Tm: 05/06/2020 (1034) by:EvlinAJM BATCH NO: N/A Name: YULISSA IRWIN [facility] Phys: Jay Galindo MD [address] : 1955 Age: 64Sex: F [place], [place] [address] Loc: N.6032 1 Exam Date: 05/06/2020 Status: ADM IN PH: FAX: PAGE 1 Signed ReportBASIC METABOLIC [id number] 05:04:00 Test Item Value Reference Range Interpretation [...] code 8.4 mg/dL 8.5-10.5 L = CA) [id number] 05:04:00 Test Item Value Reference Range Interpretation Comments MAGNESIUM (test code = MAG) 2.0 mg/dl 1.8-2.5 N VITAMIN [id number] 05:04:00 Test Item Value Reference Range Interpretation Comments VITAMIN B12 (test code = VITB12) 1231 pg/ml 180-914 H BASIC METABOLIC [id number] 04:44:00 Test Item Value Reference Range Interpretation [...] code 8.4 mg/dL 8.5-10.5 L = CA) [id number] 04:44:00 Test Item Value Reference Range Interpretation Comments MAGNESIUM (test code = MAG) 2.0 mg/dl 1.8-2.5 N VITAMIN [id number] 04:44:00 Test Item Value Reference Range Interpretation Comments VITAMIN B12 (test code = VITB12) pg/ml 180-914 CBC W/AUTO [id number] 04:19:00 Test Item Value Reference Range Interpretation [...] 0.0-0.1 N UA RFLX MICR CULT IF [id number] 18:27:00 Test Item Value Reference Range Interpretation [...] culture: Suprapubic PainSpecimen Description: CATHETERIZED (STRAIGHT)COMPREHENSIVE METABOLIC [id number] 15:53:00 Test Item Value Reference Range Interpretation [...] PHOSPHATASE (test code = ALKP) COMPREHENSIVE METABOLIC [id number] 15:53:00 Test Item Value Reference Range Interpretation [...] (test code = ALKP) - XR ABDOMEN [id number] 15:21:00 [facility] : 1955 Sex: FPatient Name: YULISSA IRWIN Unit No: [id number] EXAMS: CPT: [id number] XR ABDOMEN 1V 02064 History: constipation COMPARISON STUDY: 04/02/2020 Abdomen 1 [...] amount of stool is present in colon. 2.Mild nonspecific small bowel dilatation is present. at 1521 Reported and signed by: Anderson Silverio MD CC: Rhett Fry MD; Undefined Provider Technologist: MAYRA Ochoa Time: DAP (Gy m2): Air Kerma (mGy): Trscr Dt/Tm: 05/05/2020 (1521) by:[email or web address] Orig Print D/T: S: 05/05/2020 (1524) BATCH NO: N/A Name: YULISSA IRWIN [facility] Phys: Rhett Altamirano [address] : 1955 Age: 64 Sex: F [place] [address] Loc: N.6032 1 Exam Date: 05/05/2020 Status: ADM IN PH: FAX: PAGE 1 Signed Report- CT HEAD/BRAIN W/O [id number] 13:49:00 [facility] 1955 Sex: FPatient Name: YULISSA IRWIN Unit No: [id number] EXAMS: CPT: [id number] CT HEAD/BRAIN W/O CONT [address]68 CT HEADWITHOUT CONTRAST TECHNIQUE: Contiguous noncontrast axial [...] CTDI: 44.73 DLP: 717.91 Trscr Dt/Tm: 05/05/2020 (6299) by:[email or web address] Orig Print D/T: S: 05/05/2020 (4656) BATCH NO: N/A Name: YULISSA IRWIN [facility] Phys: Rhett Altamirano [address] [facility] : 1955 Age: 64 Sex: F [place], [place] [address] Loc: N.6032 1 Exam Date: 05/05/2020 Status: ADM IN PH: FAX: PAGE 1 Signed HsveakFEXI5C - GLYCOSYLATED [id number] 07:34:00 Test Item Value Reference Range Interpretation Comments GLYCOSYLATED HEMOGLOBIN 5.4 % 4.0-6.0 N Inte rpretive Data: (HA1C) (test code = Caution should be GLYHGB) exercised when interpreting th e HgbA1c in patients wit h hemolytic anemi a, iron deficiency and when the total hemoglobi n is < 9g/dL, due to a decrease in average age of red blood cells CBC W/AUTO [id number] 06:42:00 Test Item Value Reference Range Interpretation [...] 10.8 fL 8.6-12.6 N = MPV) WBC [id number] 06:42:00 Test Item Value Reference Range Interpretation [...] MORPHOLOGY (test code = NORMAL NORMAL PLTMORPH) [id number] 05:31:00 Test Item Value Reference Range Interpretation Comments GLUBED (test code = GLUBED) 114 MG/DL 70-105 H CBC W/AUTO [id number] 05:00:00 Test Item Value Reference Range Interpretation [...] 10.8 fL 8.6-12.6 N = MPV) WBC [id number] 05:00:00 Test Item Value Reference Range Interpretation Comments TOTAL CELLS COUNTED (test code = TCC) #CELLS RBC MORPHOLOGY COMMENT (test code = NORMAL MOC) PLATELET MORPHOLOGY (test code = NORMAL PLTMORPH) CBC W/AUTO [id number] 05:00:00 Test Item Value Reference Range Interpretation [...] 10.8 fL 8.6-12.6 N = MPV) WBC [id number] 05:00:00 Test Item Value Reference Range Interpretation Comments TOTAL CELLS COUNTED (test code = TCC) #CELLS RBC MORPHOLOGY COMMENT (test code = NORMAL MOC) PLATELET MORPHOLOGY (test code = NORMAL PLTMORPH) [id number] 23:32:00 Test Item Value Reference Range Interpretation Comments GLUBED (test code = GLUBED) 115 MG/DL 70-105 H - XR CHEST 2 [id number] 14:08:00 [facility] : 1955 Sex: FPatient Name: YULISSA IRWIN Unit No: [id number] EXAMS: CPT: [id number] XR CHEST 2 V 72698 COMPARISON: noneHISTORY: Shortness of breath Capsule comparison: CT of [...] (1408) by:[email or web address] Orig Print D/T: S: 05/04/2020 (2032) BATCH NO: N/A Name: YULISSA IRWIN [facility] Phys: Rhett Altamirano [address] : 1955 Age: 64 Sex: F [place] [address] Loc: N.6032 1 Exam Date: 05/04/2020 Status: ADM IN PH: FAX: PAGE 1 Signed Report- MRI [id number] 12:39:00 [facility] : 1955 Sex: FPatient Name: YULISSA IRWIN Unit No: [id number] EXAMS: CPT: [id number] MRI MRCP 70639 MRCP/MRI ABDOMEN Clinical history:pancreatits sp aspen Technique: Noncontrast MRI abdomen was performed. 3-D MRCP images were obtained with 3-D reformations. Findings:Reference is made to recent CT of May 02, 2020. There is postsurgical changes with clips in the gallbladder fossa. There is trace bilateral pleural fluidwith adjacent bibasilar atelectasis. There is trace perihepatic ascites. The liver is mildly fatty infiltrated. There is a few incidental scattered bilateral renal cysts. The spleen, adrenal glands, are unremarkable. There is mild diffuse pancreas edema and soft tissue stranding in the peripancreatic soft tissues consistent with acute pancreatitis. The common bile duct is dilated at the dawood hepatismeasuring 10 mm transverse. The cystic duct remnant [...] visible pancreas mass or pseudocyst. 3. Fatty liver4. Trace bilateral pleural fluid. Trace perihepatic ascites. at 1239 Reported and signed by: Leatha Fisher MD CC: Desmond Vazquez MD; Rhett Cortez MD; Undefined Provider Technologist: Bela Miller Dt/Tm: 05/04/2020 (1239) by:[email or web address] Orig Print D/T: S: 05/04/2020 (1242) BATCH NO: N/A Name: YULISSA IRWIN [facility] Phys: LEESE.01 - Desmond Vazquez MD [address] [facility] : 1955 Age: 64 Sex: F [place] [address] Loc: N.6032 1 Exam Date: 05/04/2020 Status: ADM IN PH: FAX: PAGE 1 Signed ReportCBC W/AUTO [id number] 09:51:00 Test Item Value Reference Range Interpretation [...] 10.6 fL 8.6-12.6 N = MPV) WBC [id number] 09:51:00 Test Item Value Reference Range Interpretation [...] SEEN NORMAL code = PLTMORPH) BASIC METABOLIC [id number] 08:08:00 Test Item Value Reference Range Interpretation [...] mg/dL 8.5-10.5 L = CA) LIVER FUNCTION [id number] 08:08:00 Test Item Value Reference Range Interpretation [...] code = 87 U/L 42-121 N ALKP) [id number] 08:08:00 Test Item Value Reference Range Interpretation Comments LIPASE (test code = LIP) 28 IU/L 22-51 N [id number] 08:08:00 Test Item Value Reference Range Interpretation Comments MAGNESIUM (test code = MAG) 2.1 mg/dl 1.8-2.5 N CBC W/AUTO [id number] 07:42:00 Test Item Value Reference Range Interpretation [...] 10.6 fL 8.6-12.6 N = MPV) WBC [id number] 07:42:00 Test Item Value Reference Range Interpretation Comments TOTAL CELLS COUNTED (test code = TCC) #CELLS RBC MORPHOLOGY COMMENT (test code = NORMAL MOC) PLATELET MORPHOLOGY (test code = NORMAL PLTMORPH) CBC W/AUTO [id number] 07:42:00 Test Item Value Reference Range Interpretation [...] 10.6 fL 8.6-12.6 N = MPV) WBC [id number] 07:42:00 Test Item Value Reference Range Interpretation Comments TOTAL CELLS COUNTED (test code = TCC) #CELLS RBC MORPHOLOGY COMMENT (test code = NORMAL MOC) PLATELET MORPHOLOGY (test code = NORMAL PLTMORPH) CBC W/AUTO [id number] 07:39:00 Test Item Value Reference Range Interpretation [...] = EO#) x10 3/uL 0.0-0.5 HIGH SENSITIVITY [id number] 16:25:00 Test Item Value Reference Range Interpretation Comments HIGH SENSITIVITY CRP (test code 30.530 mg/dl 0.000-0.747 H = CRPHS) BASIC METABOLIC [id number] 05:58:00 Test Item Value Reference Range Interpretation [...] code 9.0 mg/dL 8.5-10.5 N = CA) [id number] 05:58:00 Test Item Value Reference Range Interpretation Comments LIPASE (test code = LIP) 137 IU/L 22-51 H [id number] 05:58:00 Test Item Value Reference Range Interpretation Comments PHOSPHOROUS (test code = PHOS) 2.1 mg/dl 2.5-4.6 L [id number] 05:58:00 Test Item Value Reference Range Interpretation Comments MAGNESIUM (test code = MAG) 1.7 mg/dl 1.8-2.5 L CBC W/AUTO [id number] 05:40:00 Test Item Value Reference Range Interpretation [...] x10 3/uL 0.0-0.1 N Coronavirus 2018 nCoV [id number] 17:34:00 Test Item Value Reference Range Interpretation Comments Coronavirus 2019 Negative Negative This test h as been nCoV Bedside (test authorize d by FDA under code = [id number]) an EUA for use by[facility] laboratories. T his test has been author ized only for the detecti on ofnucleic acid from SARS-CoV-2, not for any other viruses orpathogens. Th is test is only authorized for the duration of thedeclaration that circumstances e xist justifying theauthorizatio n of emergency use o f in vitro diagnostic test sfor the detection and/o r diagnosis of CO VID-19 under Icseeps38 4(b)(1) of the Act, 21 U.S .C [...] and/o r diagnosis of CO VID-19 under Ybgjirp56 4(b)(1) of the Act, 21 U.S .C 360bbb-3(b)(1), unless theauthorizatio n is terminated or r evoked sooner. - CT ABD PELVIS W/[id number] 16:09:00 [facility] : 1955 Sex: FPatient Name: YULISSA IRWIN Unit No: [id number] EXAMS: CPT: [id number] CT ABD PELVIS W/CONT 05419 EXAM: CT ABDOMEN AND PELVIS WITH CONTRAST [...] with ACR practice guidelines and adherence to shingle bolt cutter recommendations. FINDINGS: Lower thorax: Subsegmental atelectasis in the left lower lobe with elevation of left diaphragm. No pleural or pericardial effusion. Small-sized sliding-type hiatal hernia. Liver: No focal liver abnormality. Portal vein patent. Liver size within normal limits. Gallbladder: Cholecystectomy clips in the gallbladder fossa. Biliary tree: Nondilated common bile duct, whichmeasures up to 13 mm in diameter, with [...] without evidence of Name: YULISSA IRWIN [facility] Phys: TRANH.[address] [place] : 1955 Age: 64Sex: [place] [address] Loc: N.ERS Exam Date: 05/02/2020 Status: PRE ER PH: FAX: PAGE 1 Signed Report (CONTINUED) Patient Name: YULISSA IRWIN Unit No: [id number] EXAMS: CPT: [id number] CT ABD PELVIS W/CONT 38994 (Continued) acute diverticulitis. No obstruction or pneumatosis. [...] (1609) by:[email or web address] Orig Print D/T: S: 05/02/2020 (7522) BATCH NO: N/A Name: YULISSA IRWIN [facility] Phys: TRANH. [address] [place] : 1955 Age: 64 Sex: [place] [address] Loc: N.ERS Exam Date: 05/02/2020 Status: PRE ER PH: FAX: PAGE 2 Signed ReportBASIC METABOLIC [id number] 15:15:00 Test Item Value Reference Range Interpretation [...] mg/dL 8.5-10.5 N = CA) LIVER FUNCTION [id number] 15:15:00 Test Item Value Reference Range Interpretation [...] code = 100 U/L 42-121 N ALKP) [id number] 15:15:00 Test Item Value Reference Range Interpretation Comments LIPASE (test code = LIP) 381 IU/L 22-51 H BASIC METABOLIC [id number] 15:12:00 Test Item Value Reference Range Interpretation [...] mg/dL 8.5-10.5 N = CA) LIVER FUNCTION [id number] 15:12:00 Test Item Value Reference Range Interpretation [...] PHOSPHATASE (test code = U/L 42-121 ALKP) [id number] 15:12:00 Test Item Value Reference Range Interpretation Comments LIPASE (test code = LIP) IU/L 22-51 BASIC METABOLIC [id number] 15:09:00 Test Item Value Reference Range Interpretation [...] mg/dL 8.5-10.5 N = CA) LIVER FUNCTION [id number] 15:09:00 Test Item Value Reference Range Interpretation Comments TOTAL PROTEIN (test code = PROT) g/dL 6.7-8.2 ALBUMIN (test code = ALB) g/dL 3.2-5.5 BILIRUBIN TOTAL (test code = BILT) mg/dL 0.2-1.3 BILIRUBIN DIRECT (test code = BILD) mg/dL 0.00-0.20 SGOT/AST (test code = AST) U/L 10-42 SGPT/ALT (test code = ALT) U/L 10-60 ALKALINE PHOSPHATASE (test code = U/L 42-121 ALKP) [id number] 15:09:00 Test Item Value Reference Range Interpretation Comments LIPASE (test code = LIP) IU/L 22-51 LACTIC [id number] 15:04:00 Test Item Value Reference Range Interpretation Comments LACTIC ACID (test code = LACT) 1.5 mmol/L 0.5-2.0 N CBC W/AUTO [id number] 14:49:00 Test Item Value Reference Range Interpretation [...] 0.0-0.1 N UA RFLX MICR CULT IF [id number] 14:49:00 Test Item Value Reference Range Interpretation [...] culture: Suprapubic PainSpecimen Description: CLEAN CATCHCBC W/AUTO [id number] 14:42:00 Test Item Value Reference Range Interpretation [...] code = EO#) x10 3/uL 0.0-0.5 URINE [id number] 13:51:00 Test Item Value Reference Range Interpretation Comments CULTURE (BEAKER) (test A 30-39 ,000 col/mL Daniel code = 1095) albicans >100,000 col/mL skin floraURINALYSIS W/ [id number] 18:13:00 Test Item Value Reference Range Interpretation [...] 1663) SOURCE(BEAKER) (test code = 2795) RAPID [id number] 17:57:00 Test Item Value Reference Range Interpretation Comments RAPID MYOGLOBIN (BEAKER) (test code 34 ng/mL <107 = 2237) RAPID TROPONIN [id number] 17:57:00 Test Item Value Reference Range Interpretation Comments RAPID TROPONIN I (BEAKER) (test code < ng/mL <0.05 = 1483) B-TYPE NATRIURETIC FACTOR (BNP)2018-07-25 17:57:00 Test Item Value Reference Range Interpretation Comments B-TYPE NATRIURETIC PEPTIDE (BEAKER) 22 pg/mL 0-100 (test code = 700) RAPID [id number] 17:56:00 Test Item Value Reference Range Interpretation Comments RAPID CKMB (BEAKER) (test code = < ng/mL 0.0-4.3 1482) PT/[id number] 17:54:00 Test Item Value Reference Range Interpretation [...] patients with mechanical heart valves.CT, BRAIN, WITHOUT [id number] 17:49:00Reason for exam:->DIZZINESSWhat is the patient's sedation [...] Blake Verified Date/Time: 07/25/2018 17:49:33 Reading Location: [facility] Radiology Reading Room [id number] 17:42:00 Test Item Value Reference Range Interpretation Comments MAGNESIUM (BEAKER) (test code = 2.0 mg/dL 1.5-3.0 627) BASIC METABOLIC [id number] 17:42:00 Test Item Value Reference Range Interpretation [...] CALCU LATE m ESTIMATED GFR. HEPATIC FUNCTION [id number] 17:42:00 Test Item Value Reference Range Interpretation [...] (test code = 31 U/L 5-50 347) [id number] 17:42:00 Test Item Value Reference Range Interpretation Comments LIPASE (BEAKER) (test code = 749) 235 U/L 40-240 RAD, CHEST, 2 [id number] 17:42:00Reason for exam:->sobFINAL REPORT Chest, PA and lateral. History: Shortness of breath. Comparison: None available. Discussion: The cardiomediastinal silhouette and pulmonary vasculature are within normal limits. The lungs are clear without evidence of consolidation or effusion. There are no acute osseous abnormalities. The soft tissues are unremarkable. IMPRESSION: No acute cardiopulmonary abnormality. Signed: Long Obando MDReport Verified Date/Time: 07/25/2018 17:42:28 Reading Location: [address] Radiology Reading Room CBC W/PLT COUNT & AUTO [id number] 17:29:00 Test Item Value Reference Range Interpretation [...] K/ L 0.00-0.20 (test code = 417) Notes Date/Time Note Provider Source 2023-03-08 09:14:08 8946-32-05V84:14:08Formatting of Dwayne Knight CMA [facility] this note is different from the [facility] original.Chief Complaint Patient presents with Heel Pain Right heel pain Dwayne Knight 73989-6Ekfln FyqdXX9570-52-03H21:25:11Nurse NoteTXT1.2.840.049837.1.13.131.2.7 .2.657518|[id number] for patient dewp12416-5Cqjio [id number] [facility] E[address]vpm[address] [facility] HospitalTXTX[facility]2577025U KUI7632-92-38K90:25:111.2.840.1143 50.1.72.3.15|1.2.840.038945.1.13.1 31.2.7.2.727879_364143170 2020-11-04 21:23:33 88846872502276-55-35S71:23:33 [facility] OPERATIVE/PROCEDURE REPORTALIDA YULISSAMELOCILITY: SLENuria #: [id number] Room: [facility] #: [id number] : 1955DATE OF PROCEDURE: 11/04/2020URGEON: VIKTORIYA SmithREOPERATIVE DIAGNOSIS: Abdominal wall abscess.POSTOPERATIVE DIAGNOSIS: Abdominal wall abscess.PROCEDURE: I and D of abdominal wall abscess.ASSISTANTS:1. Cristi Calloway MD.2. MD Benjamín.ESTIMATED BLOOD LOSS: None.SPECIMEN: Purulent pus sent for culture and sensitivity.INDICATIONS: This is a 64-year-old female with history ofpancreatitis and pancreatic abscess treated in the past withpercutaneous drainage, which was removed a few months ago. Shepresented with fever and tenderness along the right upperquadrant. A CT scan of the abdomen revealed possiblesubcutaneous abscess and possible enterocutaneous fistula.Therefore, she was brought in today for I and D of theabdominal wall abscess.DESCRIPTION OF PROCEDURE: After induction of generalanesthesia, the patient's abdomen was prepped with ChloraPrepand draped in a sterile fashion. A small transverse incisionin the right upper quadrant over the indurated area made. Amoderate amount of purulent pus was aspirated and sent forculture and sensitivity. The abscess cavity was debrided andirrigated with warm saline and packed with Kerlix soaked withBetadine. The patient tolerated the procedure, went torecovery in stable condition.OB/MODLDD: 11/04/2020 16:18:59DT: 11/04/2020 21:23:33Job #: [id number] iarcmx4161-87-14G77:23:691665-90-5 0T12:19:[id number] RAF VILLALOBOSHOHBKBYIWQAJBMNLXTCPV5234-04-53G52 :19:32 2020-05-09 20:04:00 XBwjolkluyu201810278910-67-74T22:0 [facility] [phone] [place] [address] PATIENT NAME: YULISSA IRWIN ADMIT DATE: 05/02/20ACCOUNT NO: [id number] ROOM NO: N.6032 AGE: 64 REPORT TYPE: PROGRESS NOTE SEX: F ADMITTING PHYSICIAN:Rhett Fry MD ATTENDING PHYSICIAN:Rhett Fry MD DATE: 05/09/2020 IDENTIFICATION: The patient is 64 years old. CHIEF COMPLAINT:1. Syncopal episode, cause uncertain.2. Possibility of hypoglycemic episode. SUBJECTIVE: The patient is responsive, able to follow commands, has no newcomplaints. Denies any dizziness, headache. OBJECTIVE:VITAL SIGNS: Blood pressure 136/80, pulse 124, respirations 18, and afebrile.GENERAL: Shows a middle-aged white female lying in bed, communicative, able tofollow 1-step commands.HEENT: Head was atraumatic and normocephalic.NECK: Supple. No palpable masses.LUNGS: Show scattered rhonchi.ABDOMEN: Benign.EXTREMITIES: Did not show any cyanosis, edema, or deformities.NEUROLOGIC: Neurological examination reveals a mental status that has asmentioned above. The patient is communicative, able to follow 1-step commands. Cranial nerves, pupils oval, equal, and reactive to light. There is no facialdroop. Motor system, sensory system, cerebellar function, and gait does notshow any new findings, although gait could not be tested satisfactorily due topoor patient cooperation and condition. Muscle stretch reflexes are diminishedthroughout. LABORATORY DATA: Blood sugar 109. ASSESSMENT1. Syncopal episode, possibly due to either hypertensive or hypoglycemicepisode.2. Pancreatitis with other gastrointestinal issues. PLAN: Supportive care and management of underlying GI and other medical issuesappears to be in order. Dictated By: Jay Lawson MD WT: PN:N.SULY/LONNIE/NTSDD: 05/09/2020 20:04:31 PATIENT NAME YULISSA IRWIN Conf#: [id number]/DID#: [id number] cc: Rhett Cortez MD Authenticated by Jay Lawson MD On 05/10/2020 06:23:36 PM at 1823 PATIENT NAME YULISSA IRWIN Rhnr5401-71-91Y39:36:00N.[id number] 31-0169AVAvailable for patient qdkzVTTTWMTLNJVXRB7815-00-11S68:24 :14 2020-05-08 18:37:00 BXlahjmwgaq612960568060-63-97W67:3 [facility] [phone] [address] PATIENT NAME: YULISSA IRWIN ADMIT DATE: 05/02/20ACCOUNT NO: [id number] ROOM NO: N.6032 AGE: 64 REPORT TYPE: PROGRESS NOTE SEX: F ADMITTING PHYSICIAN:Rhett Fry MD ATTENDING PHYSICIAN:Rhett Fry MD DATE: 05/08/2020 The patient is 64 years old. CHIEF COMPLAINT:1. Syncopal episode, cause uncertain.2. Pancreatitis.3. Multiple other medical issues. SUBJECTIVE: The patient is responsive, able to follow commands, has no newcomplaints. Denies any headache. There has been no further syncopal episode. OBJECTIVE:VITAL SIGNS: Blood pressure 151/87, pulse 95, respirations 18, and afebrile.GENERAL: Shows a middle-aged white female lying in bed, communicative, able tofollow 1-step commands. Her is by the bedside.HEENT: Head was atraumatic. There is an old laceration over the rightfrontotemporal area.NECK: Supple. No palpable masses.LUNGS: Show scattered rhonchi.ABDOMEN: Benign.EXTREMITIES: Did not show any cyanosis, edema, or deformities.NEUROLOGIC: Reveals a mental status that has as mentioned above. The patientis communicative, able to follow 1-step commands. She says she is howeversomewhat cognitively challenged. Cranial nerves, pupils oval, equal, andreactive to light. There is no facial droop. Motor system, sensory system, andcerebellar function and gait does not show any new findings. Muscle stretchreflexes are diminished throughout. LABORATORY DATA: Chemistry within normal limits, but potassium 3.0, BUN lessthan 5, creatinine 0.6, and blood sugar ranges from 101 to 146. Magnesium 1.9. Earlier, the potassium was 2.5. CBC; white count 10.1, hemoglobin 11.4,hematocrit 33, and platelets 272,000. ASSESSMENT:1. Gastrointestinal symptoms due to pancreatitis.2. Syncopal episode, cause uncertain. PLAN: Supportive care and management of underlying GI and other issues appearsto be in order. Dictated By: Jay Lawson MD PATIENT NAME YULISSA IRWIN WT: PN:N.SULY/CADENCEEBONI/NTSDD: 05/08/2020 18:37:07DT: 05/08/2020 19:50:20Conf#: [id number]/DID#: [id number] cc: Rhett Cortez MD Authenticated by Jay Lawson MD On 05/09/2020 07:19:01 PM at 1919 PATIENT NAME YULISSA IRWIN Cxwu0962-55-45G90:50:00N.[id number] 8AVAvailable for patient tezoXBVAFRXTMLNPAC1433-29-78N47:19 :37 2020-05-07 20:17:00 UNgeplzpvds272891356633-43-26K91:1 [facility] [phone] [address] PATIENT NAME: YULISSA IRWIN ADMIT DATE: 05/02/20ACCOUNT NO: [id number] ROOM NO: N.6032 AGE: 64 REPORT TYPE: PROGRESS NOTE SEX: F ADMITTING PHYSICIAN:Rhett Fry MD ATTENDING PHYSICIAN:Rhett Fry MD DATE: 05/07/2020 The patient is 64 years old. CHIEF COMPLAINT:1. Syncopal episode, cause uncertain.2. History of pancreatitis. SUBJECTIVE: The patient is arousable, able to follow commands. Denies any newcomplaints. OBJECTIVE:VITAL SIGNS: Blood pressure 161/80, pulse 119, respirations 18, and afebrile.GENERAL: Exam shows a middle-aged female, lying in bed, communicative, able tofollow 1-step commands.HEAD: Atraumatic and normocephalic.NECK: Supple. No palpable masses.LUNGS: Scattered rhonchi.ABDOMEN: Benign.EXTREMITIES: Did not show any cyanosis, edema, or deformities.NEUROLOGICAL: Neurological examination reveals a mental status that has beenmentioned above. The patient is communicative, able to follow 1-step commands. Cranial nerves; pupils oval, equal, and reactive to light. There is no facialdroop. Motor system, sensory system, cerebellar function, and gait do not showany new findings, although gait could not be tested satisfactorily. Musclestretch reflexes are diminished throughout. LABORATORY DATA: Blood sugar ranges from 120 to 136. Folic acid 14.2. TSH1.1. ASSESSMENT:1. Syncopal episode, cause uncertain.2. Pancreatitis with other gastrointestinal issues. PLAN: Supportive care and management of underlying other issues appears to bein order. The patient did have a CT of the head on 05/05/2020, which wasnegative. At this point in time, supportive care and management of underlying GI issuesappears to be in order. If need be, we will do an MRI of the brain. Dictated By: Jay Lawson MD PATIENT NAME YULISSA IRWIN WT: PN:N.SULY/OLNNIE/NTSDD: 05/07/2020 20:17:34DT: 05/07/2020 20:34:21Conf#: [id number]/DID#: [id number] cc: Rhett Cortez MD Authenticated by Jay Lawson MD On 05/08/2020 04:40:34 PM at 1640 PATIENT NAME YULISSA IRWIN Cqyg9076-57-42A54:34:00N.[id number] -0235AVAvailable for patient nnglFULPFNIBNNCNOR8859-67-50B44:41 :08 2020-05-06 21:20:00 GEeuhbmyare335809853367-53-93W44:2 [facility] [phone] [address] PATIENT NAME: YULISSA IRWIN ADMIT DATE: 05/02/20ACCOUNT NO: [id number] ROOM NO: N.6032 AGE: 64 REPORT TYPE: ELECTROENCEPHALOGRAM SEX: F ADMITTING PHYSICIAN:Rhett Fry MD ATTENDING PHYSICIAN:Rhett Fry MD PROCEDURE: Electroencephalogram STUDY DATE: 05/06/2020 IDENTIFICATION: The patient is 64 years old. EEG NUMBER: [id number] This 18-channel recording obtained using the standard scalp and referentialelectrodes observing the 10-20 international system. The patient was reportedto be cooperative, was awake and drowsy throughout the recording. CLINICAL NOTE: This is a 64-year-old female who is being evaluated for syncopalepisode. Spontaneous activity is mildly abnormal due to intermittent diffusebifrontal slowing. The background activity is characterized by low voltagewaves about 5 to 6 Hz. Subsequently, no additional findings were seen. Onsubsequent run again, no additional findings were seen. Later on someattenuation is seen suggestive of drowsiness. On subsequent run, movement ofmuscle and other artifact are seen, which sometimes obliterated the background. Hyperventilation was omitted. Photic stimulation was performed, but noclear-cut photic driving was seen. EKG was monitored during the recording andshowed normal sinus rhythm when monitored. IMPRESSION: This awake and drowsy record appears to be mildly abnormal due tointermittent bifrontal slowing suggestive of diffuse cerebral dysfunction, butno seizure activity was seen on this record. Clinical correlation isrecommended. Dictated By: Jay Lawson MD WT: EEG:N.NEURO/REZSY/NTSDD: 05/06/2020 21:20:30DT: 05/06/2020 22:40:23Conf#: [id number]/DID#: [id number] cc: Rhett Fry Authenticated by Jay Lawson MD On 05/07/2020 05:47:14 PM at 1747 PATIENT NAME YULISSA IRWIN cxuxxlu9137-54-43Q69:40:00N.NEURO2 [id number] for patient lypkGVTEGIUVJLWHQE0526-33-86F68:47 :46 2020-05-06 21:01:00 TBapowtxkgd897283941905-33-98O43:0 [facility] [phone] [address] PATIENT NAME: YULISSA IRWIN ADMIT DATE: 05/02/20ACCOUNT NO: [id number] ROOM NO: N.6032 AGE: 64 REPORT TYPE: PROGRESS NOTE SEX: F ADMITTING PHYSICIAN:Rhett Fry MD ATTENDING PHYSICIAN:Rhett Fry MD DATE: 05/06/2020 The patient is 64 years old. CHIEF COMPLAINT:1. Status post fall, cause uncertain.2. History of pancreatitis.3. History of hypoglycemia and hypertension. SUBJECTIVE: The patient is responsive, able to follow commands, has no newcomplaints. PHYSICAL EXAMINATION:VITAL SIGNS: Blood pressure 156/88, pulse 115, respirations 19. Afebrile.GENERAL: Shows a middle-aged female, lying in bed, communicative, able tofollow 1-step commands.HEENT: Head was normocephalic with a small abrasion over the right orbitalarea.NECK: Supple. No palpable masses.LUNGS: Show scattered rhonchi.ABDOMEN: Benign.EXTREMITIES: Did not show any new findings. NEUROLOGIC: Reveals a mental status as mentioned above. The patient iscommunicative, able to follow 1-step commands. Cranial nerves, pupils oval,equal, and reactive to light. There is no facial droop. Motor system, sensorysystem, and cerebellar function and gait does not show any new findings,although gait could not be tested satisfactorily, muscle stretch reflexes arediminished throughout. LABORATORY DATA: MRI of the brain was done and a copy was given to the patient,was essentially negative. B12 of 1231. Sodium 133, potassium 3.1. Rest of thechemistry within normal limits. CBC; white count 12.6, hemoglobin 12.8,hematocrit 38, and platelets 252,000. Magnesium 2.0 and blood sugar 121. ASSESSMENT:1. Electrolyte imbalance.2. Syncopal episode, exact etiology still unknown. Other diagnosticpossibility includes hypoglycemia and/or hypotensive episode. PLAN: Supportive care and management of electrolyte imbalance, appears to be inorder. We should also treat her leukocytosis. Other problems will be dealt PATIENT NAME YULISSA IRWIN with as they arise. Dictated By: Jay Lawson MD WT: PN:N.HIM/LONNIE/NTSDD: 05/06/2020 21:01:00DT: 05/06/2020 22:39:15Conf#: [id number]/DID#: [id number] cc: Rhett Fry Authenticated by Jay Lawson MD On 05/07/2020 05:47:19 PM at 1747 PATIENT NAME YULISSA IRWIN Dfxf0300-26-44N59:39:00N.GGL431475 28-0324AVAvailable for patient oshmXWAOCCLFWQALTF1827-68-11W83:47 :46 2020-05-05 22:00:00 RCbwuxrxljs124018759946-19-61T02:0 [facility] [phone] [address] PATIENT NAME: YULISSA IRWIN ADMIT DATE: 05/02/20ACCOUNT NO: [id number] ROOM NO: N.6032 AGE: 64 REPORT TYPE: CONSULTATION SEX: F ADMITTING PHYSICIAN:Rhett Fry MD ATTENDING PHYSICIAN:Rhett Fry MD CONSULTATION DATE: 05/05/2020 CONSULTING PHYSICIAN: Jay Lawson MD The patient is 64 years old. HISTORY OF PRESENT ILLNESS: Thank you very much for asking me to evaluate andmanage this 64-year-old female who was admitted with complaints of GI symptoms. She tells me that she fell about 2 or 3 days ago, not sure when, has a smalllaceration of the right frontal area. The patient has a history of hypertensionepisodes and hypoglycemic episode. On exam, she is responsive, able to followcommands. There is a history of high blood pressure, but the patient is notsure or aware. The patient does have history of bipolar disorder. She alsocomplains of episodic dizziness. The patient does complain of episodic shortness of breath and diarrhea up . She also carries a diagnosis of purpura, type unknown. PAST MEDICAL HISTORY: As mentioned. PAST SURGICAL HISTORY: As mentioned. SOCIAL HISTORY: She lives with her . Denies smoking or ingestion ofalcohol. ALLERGIES: SHE IS ALLERGIC TO SEROQUEL. PHYSICAL EXAMINATION:VITAL SIGNS: Blood pressure 144/75, pulse 100, respirations 14, afebrile.GENERAL: Shows a middle-aged female, lying in bed, communicative, able tofollow 1-step commands.HEENT: Head was atraumatic and normocephalic.NECK: Supple.HEART: No palpable masses.LUNGS: Show scattered rhonchi.ABDOMEN: Benign.EXTREMITIES: Show petechial lesion over the upper extremity, more over theright. FAMILY HISTORY: Noncontributory. REVIEW OF SYSTEMS: PATIENT NAME YULISSA IRWIN HEAD, EARS, NOSE, AND THROAT: The patient denies any headache, but doescomplain of episodic dizziness.PULMONARY: The patient denies shortness of breath.CARDIOVASCULAR: The patient denies chest pain or palpitation.GASTROINTESTINAL: The patient does have episodes of pancreatitis with episodicdiarrhea.MUSCULOSKELETAL: The patient denies any joint pains.DERMATOLOGIC: The patient denies rashes or lesions.PSYCHOLOGICAL: The patient carries a diagnosis of bipolar disorder.NEUROLOGIC: Reveals a mental status that has been mentioned. The patient iscommunicative, able to follow 1-step commands. Cranial nerves, pupils oval,equal, and reactive to light. There is no facial droop. Motor system revealsnormal bulk and tone without any pronation drift. There appears to be nofasciculation. No sensory level was found to all modalities tested that islight touch, vibratory sense, position sense and pinprick. Muscle stretchreflexes are diminished throughout. LABORATORY DATA: Blood sugar 114. CBC; white count 9.7, hemoglobin 12.8,hematocrit 40, and platelets 219,000. A1c 5.5. Sodium 133, potassium 3.1. Rest of the chemistry within normal limits. CT of the brain was done today,which is essentially negative. ASSESSMENT:1. Status post fall, cause uncertain.2. Episodes of hypoglycemia and hypertension.3. History of pancreatitis.4. Bipolar disorder. PLAN: Supportive care appears to be in order. We will do an MRI of the brainand EEG. In the meantime, we should address her hematologic and GI issues. Other problems will be dealt with as they arise. So, discussed with the patientin quite some detail. Total time spent about 70 minutes. Dictated By: Jay Lawson MD WT: CON:N.HIM/LONNIE/NTSDD: 05/05/2020 22:00:24DT: 05/06/2020 00:29:46Conf#: [id number]/DID#: [id number] cc: Rhett Cortez MD Authenticated by Jay Lawson MD On 05/06/2020 07:16:53 PM at 1917 PATIENT NAME YULISSA IRWIN 28T00:29:00N.[id number] ilable for patient rckvZDNNWAFCHBQDYP4848-16-68D68:17 :14 2020-05-02 14:06:00 UQwezeecrvr706685513063-91-34E93:0 [facility]W 6:00 [facility] Center ([facility])EMERGENCY PROVIDER REPORTREPORT#:[id number] REPORT STATUS: SignedDATE:05/02/20 TIME: 1406 PATIENT: YULISSA IRWIN UNIT #: [id number]#: [id number] ROOM: [facility] BED: 1AGE: 64 SEX: F PCP PHYS: Undefined ProviderSERVICE AUTHOR: Elissa Street MD * ALL edits or amendments must be made on the electronic/computer document * HPI-General Illness Free Text HPI NotesFree Text HPI NotesThis is a 64-year-old female with history of chronic back pain, fibromyalgia, borderline diabetes, solar purpura presents to the ER for generalized abdominal pain that started yesterday. Patient also reports watery diarrhea at the same time. She denies any dysuria but reports her urine has decreased. No fever, cough, or shortness of breath. No chest pain. H/o of gastric bypass and gallballder removal. GeneralInitial Greet Date/Time 05/02/20 1331 PresentationChief Complaint Abdominal pain Review of Systems ROS StatementsAll systems rev neg except as marked. Review of SystemsConstitutionalDenies: Fever, Lethargy, Malaise. RespiratoryDenies: Cough, non-productive, Shortness of breath. CardiovascularDenies: Chest pain, Syncope. GIReports: Abdominal pain, Diarrhea, Nausea. Denies: Vomiting. SkinReports: Rash (chronic). Past Medical History - AdultStated Complaint DIARRHEA, ABD PAINAllergiesCoded Allergies:omeprazole (Severe, ANAPHYLAXIS 05/02/20)quetiapine (From SEROQUEL) (Severe, ABNORMAL DREAMS 05/02/20) Home MedicationsReported MedicationsLurasidone (Latuda) 125 MG PO DAILY Buspirone (Buspar) 45 MG PO DAILY Calculated suicide risk level: No riskSmoking status for patients 13 years old or older: Unknown,if ever smoked Physical Exam Vital SignsVital SignsFirst Documented: Result Date Time Pulse Ox 97 05/02 1331 B/P 140/84 05/02 1331 B/P Mean 102.8 05/02 1331 Temp 97.5 05/02 1331 Pulse 114 05/02 1331 Resp 20 05/02 1331 Last Documented: Result Date Time Pulse Ox 98 05/02 1518 B/P 136/79 05/02 1518 B/P Mean 98 05/02 1518 Pulse 93 05/02 1518 Resp 20 05/02 1518 Temp 97.9 05/02 1407 Review of Vital Signs Reviewed Free Text PE NotesFree Text PE NotesPhysical Exam: General: awake, alert, well appearingHead: NC/ATENT: OP clear, MMMNeck: supple, atraumaticPulm: CTAB, no resp distress, no wheezing, rales, rhonciCV: TachycardiaGI: abd s/nt/ndExtremities: normal inspection, Full ROM, no swelling, no tendernessSkin: Palpable purpura to the bilateral upper extremity (chronic): deferredNeuro: normal motor, sensory and speech, ambulatoryPsychiatric: normal mood, affect normal Interpretation Diagnostics Lab Results InterpretationResultsLaboratory Tests 05/02/20 1420:[Embedded Image Not Available]Laboratory Tests: 10/24 10/24 10/24 1419 1420 1429 Chemistry Sodium (135 - 145 mmol/L) 136 Potassium (3.6 - 5.0 mmol/L) 3.7 Chloride (101 - 111 mmol/L) 108 Carbon Dioxide (21 - 31 mmol/L) 18 L BUN (6 - 20 mg/dl) 12 Creatinine (0.44 - 1.03 mg/dL) 0.57 Glomerular Filtr Rate (>60) >=60 max estimate Glucose (70 - 100 mg/dl) 157 H Lactic Acid (0.5 - 2.0 mmol/L) 1.5 Calcium (8.5 - 10.5 mg/dL) 9.1 Total Bilirubin (0.2 - 1.3 mg/dL) 1.00 Direct Bilirubin (0.00 - 0.20 mg/dL) 0.2 AST (10 - 42 U/L) 115 H ALT (10 - 60 U/L) 82 H Total Alk Phosphatase (42 - 121 U/L) 100 Total Protein (6.7 - 8.2 g/dL) 6.3 L Albumin (3.2 - 5.5 g/dL) 4.0 Lipase (22 - 51 IU/L) 381 H Hematology WBC (3.2 - 11.5 x10 3/uL) 14.7 H RBC (3.70 - 5.10 x10(6)/m) 4.28 Hgb (12.0 - 15.0 g/dL) 14.2 Hct (35.7 - 44.8 %) 44.2 MCV (80 - 100 fL) 103 H MCH (26.2 - 33.8 pg) 33.2 MCHC (30.0 - 34.0 g/dL) 32.1 RDW (11.3 - 14.5 %) 13.2 Plt Count (130 - 408 x10 3/uL) 279 MPV (8.6 - 12.6 fL) 10.7 Neut % (Auto) (40.0 - 70.0 %) 82.6 H Lymph % (Auto) (20 - 40 %) 8.4 L Andrew % (Auto) (1 - 10 %) 5.8 Eos % (Auto) (0.0 - 5.0 %) 2.4 Baso % (Auto) (0.0 - 1.0 %) 0.3 Neut # (Auto) (1.6 - 7.2 x10 3/uL) 12.1 H Lymph # (Auto) (1.1 - 2.7 x10 3/uL) 1.23 Andrew # (Auto) (0.3 - 0.8 x10 3/uL) 0.9 H Eos # (Auto) (0.0 - 0.5 x10 3/uL) 0.4 Baso # (Auto) (0.0 - 0.1 x10 3/uL) 0.1 Immature Gran % (0.0 - 2.0 %) 0.5 Nucleated RBC % (0.0 - 0.9 %) 0.0 Urines Urine Color (YELLOW) Beatriz Urine Appearance (CLEAR) HAZY Urine pH (5.0 - 9.0) 5.0 Ur Specific [place] (1.001 - 1.030) 1.028 Urine Protein (NEGATIVE) 1+ H Urine Glucose (UA) (NEGATIVE) NEGATIVE Urine Ketones (NEGATIVE) 1+ H Urine Blood (NEGATIVE) NEGATIVE Urine Nitrite (NEGATIVE) POSITIVE H Urine Bilirubin (NEGATIVE) NEGATIVE Urine Urobilinogen (<=1.0) NEGATIVE Ur Leukocyte Esterase (NEGATIVE) NEGATIVE Urine RBC (0 - 5 /HPF) 0-5 Urine WBC (0 - 5 /HPF) 0-5 Ur Epithelial Cells (NONE - FEW /LPF) RARE Urine Bacteria (NONE SEEN /HPF) 3+ H Hyaline Casts (0 - 1 /LPF) 6-10 H Urine Mucus (NONE SEEN /LPF) 2+ Urine Ascorbic Acid NEGATIVE 05/02 1708 Serology SARS-CoV-2 Rap RNA(RT-PCR) (Negative) Negative Microbiology: Date/Time Procedure - Status Source Growth 05/02 1546 Blood Culture - RES BLOOD Recent Impressions:CAT SCAN - CT ABD PELVIS W/CONT 05/02 1534 Report Impression - Status: SIGNED Entered: 05/02/2020 1612 IMPRESSION: Moderate peripancreatic edema and swelling about the pancreatic headand surrounding the 1st and 2nd portions of the duodenum, which mayreflect acute pancreatitis. A component of acute duodenitis could beconsidered.Common bile duct dilation measuring up to 13 mm in diameter withabrupt shouldering at the level the pancreatic head, etiology ofobstruction not identified.No evidence of an clinic duct dilation or atrophy. No discrete solidor cystic pancreatic mass.No evidence of pancreatic pseudocyst formation or evidence ofnecrotizing pancreatitis. Recommendation: MRI pancreas protocol with MRCP, to be performed withand without contrast, which could provide additional characterizationand etiology of obstruction. Differential includescholedocholithiasis.Impres missy By: [email or web address] - YUDELKA VALENTE MD Re-Evaluation MDM Free Text MDM NotesFree Text MDM NotesThis is a 64-year-old female with history of chronic back pain, fibromyalgia, borderline diabetes, and solar purpura presents to the ER for generalized abdominal pain that started yesterday. Will get abdominal pain work-up including CT abdomen pelvis with contrast. Pain control, antiemetic, and reassess. Re-Evaluation/Progress #1Text/Dict Notept w persistent pain even after morphine. Has CT concerning for pancreatitis andchemistry concerning for possible gallstone pancreatitis. Will admit to medicineand consult GI/Surgery.Time of Re-Eval 1616Re-Eval Status Unchanged ED CourseMedication(s) OrderedMedication(s) Ordered:Central Nervous System Agents Sig/Radha Start time Last Medication Dose Route Stop Time Status Admin Hydromorphone HCl 1 MG NOW ONE 05/02 1700 AC 05/02 IV 05/02 1701 1654 Morphine Sulfate 4 MG X1ED STA 05/02 1408 DC 05/02 IV 05/02 1409 1425 Diagnostic Agents Sig/Radha Start time Last Medication Dose Route Stop Time Status Admin Iopamidol 0 .STK-MED ONE 05/02 1513 DC 05/02 IV 1537 Electrolytic, Caloric, And Amna Sig/Radha Start time Last Medication Dose Route Stop Time Status Admin Sodium Chloride 1,000 ML X1ED STA 05/02 1650 AC 05/02 IV 05/02 1749 1654 Sodium Chloride 1,000 ML X1ED STA 05/02 1408 DC 05/02 IV 05/02 1507 1424 Gastrointestinal Drugs Sig/Radha Start time Last Medication Dose Route Stop Time Status Admin Ondansetron HCl 4 MG X1ED PRN PRN 05/02 1415 DC 05/02 IV 05/03 1416 1424 ConsultationConsultation Referral/Consult Name Desmond Vazquez MD Ground [facility] Called Surgeon Requested Call Time 1649 Requested Call Date 05/02/20 Ground Hand Will see patient Patient Discharge Departure Vital Signs/ConditionVital SignsFirst Documented: Result Date Time Pulse Ox 97 05/02 1331 B/P 140/84 05/02 1331 B/P Mean 102.8 05/02 1331 Temp 97.5 05/02 1331 Pulse 114 05/02 1331 Resp 20 05/02 1331 Last Documented: Result Date Time Pulse Ox 98 05/02 1518 B/P 136/79 05/02 1518 B/P Mean 98 05/02 1518 Pulse 93 05/02 1518 Resp 20 05/02 151 Temp 97.9 05/02 1407 All vital signs available at the time of this entry have been reviewed. Clinical ImpressionClinical ImpressionPrimary Impression: PancreatitisSecondary Impressions: Acute abdominal pain, Dilated cbd, acquired, Transaminitis Disposition DecisionAdmit Admit Physician Name Rhett Fry MD Admit Physician Primary Care Physician Request Time 1648 Request Date 05/02/20 )( Admission Accepts Yes Discharge/Care PlanCounseled Regarding Diagnosis, Lab results, Imaging studies, Need for admission at 1037RPT #:[id number] OF REPORTEDEmergency department [id number] for patient [id number] :42"
[2023-06-06 04:01] LABS: Hematocrit 35.9 % (36.0-45.0); MCV 78.7 fL (80-100); MPV 6.6 fL (7.6-11.3); Platelets 351 thou/uL (152-406); RBC Red Blood Cell Count 4.56 M/uL (3.86-4.86)
[2023-06-06 04:46] LABS: Albumin 3.6 g/dL (3.4-5.0); Bilirubin Total 0.9 mg/dL (0.2-1.0)
[2023-06-06 04:47] LABS: Potassium 4.6 mEq/L (3.5-5.1)
[2023-06-06] MEDS ORDERED: KETOROLAC 30 MG/ML INJ ONE (04:58)
[2023-06-06] MEDS ORDERED: ONDANSETRON 4 MG/2 ML VIAL ONE ×3 (04:58→12:37)
[2023-06-06] MEDS ORDERED: MORPHINE 4 MG/ML SYR ONE (04:58)
[2023-06-06] MEDS ORDERED: METOCLOPRAMIDE 10 MG/2mL INJ ONE (04:58)
[2023-06-06] MEDS ORDERED: NA CHLORIDE 0.9% 1,000 ML ONE ×3 (04:59→19:10)
[2023-06-06] MEDS ORDERED: FAMOTIDINE 20 MG/2 ML VIAL IV ONE (04:59)
[2023-06-06 05:17] LABS: Anisocytosis 1+; Blood Morphology Comment NOTED (NOT SEEN); Platelet Estimate ADEQ
--- NOTE | 2023-06-06 07:10 | ER ---
Nurse's Notes [facility] Name: Minnie Flores Age: 67 yrs Sex: Female : 1955 Arrival Date: 06/06/2023 Time: 02:21 Bed 18 Private MD: Diagnosis: Acute pancreatitis Presentation: 06/06 03:05 Chief complaint: Patient states: ABD PAIN STARTED YESTERDAY. N/V. VOMITED X3. STATES IT jj7 FEELS HOW SHE FELT WHEN SHE HAD A BLEEDING ULCER. TOOK A NORCO 10MG AT 1A. Coronavirus screen: At this time, the client does not indicate any symptoms associated with coronavirus-19. Ebola Screen: No symptoms or risks identified at this time. Initial Sepsis Screen: Does the patient meet any 2 criteria? HR > 90 bpm. Does the patient have a suspected source of infection? No. Patient's initial sepsis screen is negative. Risk Assessment: Do you want to hurt yourself or someone else? Patient reports no desire to harm self or others. Onset of symptoms was June 05, 2023. 03:05 Method Of Arrival: Wheelchair jj7 03:05 Acuity: AMY 3 jj7 Triage Assessment: 03:12 General: Appears in no apparent distress. uncomfortable, Behavior is calm, cooperative, jj7 appropriate for age. Pain: Complains of pain in abdomen. GI: Reports lower abdominal pain, upper abdominal pain, nausea, vomiting. Historical: - Allergies: 03:12 aspartame; jj7 03:12 Omeprazole; jj7 - PMHx: 03:12 Bipolar disorder; Degenerative disc disease; Depression; Fibromyalgia; jj7 - PSHx: 03:12 BILAT KNEE (Fibromyalgia); Total abdominal hysterectomy; GASTRIC BYPASS; jj7 - Immunization history:: Adult Immunizations up to date. - Social history:: Smoking status: Patient denies any tobacco usage or history of. Patient/guardian denies using alcohol, street drugs. - Family history:: not pertinent. Screenin:15 [facility] ED Fall Risk Assessment (Adult) History of falling in the last 3 months, jj7 including since admission No falls in past 3 months (0 pts) Confusion or Disorientation No (0 pts) Intoxicated or Sedated No (0 pts) Impaired Gait No (0 pts) Mobility Assist Device Used No (0 pt) Altered Elimination Yes (1 pt) Score/Fall Risk Level 0 - 2 = Low Risk Oriented to surroundings, Maintained a safe environment. Abuse screen: Denies threats or abuse. Nutritional screening: No deficits noted. Tuberculosis screening: No symptoms or risk factors identified. Assessment: 03:15 Reassessment: SEE TRIAGE ASSESSMENT. j7 04:00 Reassessment: Patient appears in no apparent distress at this time. Patient and/or jb4 family updated on plan of care and expected duration. Pain level reassessed. Patient is alert, oriented x 3, equal unlabored respirations, skin warm/dry/pink. 05:00 Reassessment: Patient appears in no apparent distress at this time. Patient and/or jb4 family updated on plan of care and expected duration. Pain level reassessed. Patient is alert, oriented x 3, equal unlabored respirations, skin warm/dry/pink. 06:00 Reassessment: Patient appears in no apparent distress at this time. Patient and/or jb4 family updated on plan of care and expected duration. Pain level reassessed. Patient is alert, oriented x 3, equal unlabored respirations, skin warm/dry/pink. 06:52 Reassessment: Patient appears in no apparent distress at this time. Patient and/or jb4 family updated on plan of care and expected duration. Pain level reassessed. Patient is alert, oriented x 3, equal unlabored respirations, skin warm/dry/pink. 07:30 Reassessment: Patient is alert, oriented x 3, equal unlabored respirations, skin aa5 warm/dry/pink. Pain: Complains of pain in right upper quadrant, left upper quadrant, right lower quadrant and left lower quadrant Pain currently is 9 out of 10 on a pain scale. 07:30 Reassessment: Pt aware of NPO status. . aa5 Vital Signs: 03:05 BP 142 / 78; Pulse 144; Resp 20; Temp 98.4; Pulse Ox 100% ; Weight 99.79 kg; Height 5 jj7 ft. 6 in. ; Pain 10/10; 05:00 BP 145 / 64; Pulse 117; Resp 16; Pulse Ox 98% ; jb4 06:30 BP 169 / 78; Pulse 117; Resp 16; Pulse Ox 97% on R/A; jb4 07:30 BP 172 / 73; Pulse 114; Resp 18 S; Temp 98.5(O); Pulse Ox 98% on R/A; aa5 09:00 BP 165 / 81; Pulse 117; Resp 16 S; Pulse Ox 96% on R/A; aa5 03:05 Body Mass Index 35.51 (99.79 kg, 167.64 cm) jj7 03:05 Pain Scale: Adult j ED Course: 02:25 Patient arrived in ED. ag3 03:07 Rogers Diaz MD is Attending Physician. sp4 03:12 Triage completed. jj7 03:12 Arm band placed on right wrist. jj7 04:58 Sorin Espinoza, CHAPARRO is Primary Nurse. jb4 05:29 CT Abd/Pelvis - IV Contrast Only In Process Unspecified. EDMS 07:09 Brian Dalton is Hospitalizing Provider. sp4 07:20 IV is patent, 22G to L Wrist noted . aa5 09:05 Report given to Adriana Sagastume RN. aa5 21:10 No provider procedures requiring assistance completed. Patient admitted, IV remains in nj1 place. Administered Medications: 04:59 Drug: TORadol - Ketorolac IVP 15 mg IVP once Route: IVP; Site: left hand; jb4 04:59 Drug: morphine IVP or IV 4 mg IVP once over 4 mins Route: IVP; Infused Over: 4 mins; jb4 Site: left hand; 04:59 Drug: metoCLOPramide IVP 10 mg IVP once; over 1 to 2 minutes Route: IVP; Site: left jb hand; 05:00 Drug: NS 0.9% IV 1000 ml IV at 1 bolus Per protocol; 1000 mL bolus Route: IV; Rate: 1 jb4 bolus; Site: left hand; 07:30 Follow up: IV Status: Completed infusion; IV Intake: 1000ml aa5 05:00 Drug: Famotidine IVP 20 mg IVP once; dilute with 10 mL 0.9% NaCl; give over 2 minutes jb4 Route: IVP; Site: left hand; 05:00 Drug: Ondansetron IVP 4 mg IVP once; over 2 minutes Route: IVP; Site: left hand; jb4 07:40 Drug: Ondansetron IVP 4 mg IVP once; over 2 minutes Route: IVP; Site: left wrist; aa5 08:00 Follow up: Response: No adverse reaction aa5 09:30 Follow up: Response: No adverse reaction; Nausea is decreased nj1 07:40 Drug: NS 0.9% IV 1000 ml IV at 125 ml/hr continuous Route: IV; Rate: 125 ml/hr; Site: aa5 left wrist; 10:25 Follow up: IV Status: Infusion continued upon admission; IV Intake: 350ml nj1 07:42 Drug: HYDROmorphone IVP 1 mg IVP once Route: IVP; Site: left wrist; aa5 08:00 Follow up: Response: No adverse reaction aa5 09:30 Follow up: Response: No adverse reaction; Pain is decreased nj1 Medication: 03:15 VIS not applicable for this client. jj7 Intake: 07:30 IV: 1000ml; Total: 1000ml. aa5 10:25 IV: 350ml; Total: 1350ml. nj1 Outcome: 07:09 Decision to Hospitalize by Provider. sp4 21:10 Admitted to Med/surg accompanied by tech, via wheelchair, room 208, Report called to nj1 Jose MAYFIELD 21:10 Condition: stable 21:10 Instructed on the need for admit, 22:06 Patient left the ED. jj7 Signatures: Dispatcher [employer] EDMS Tania Diane, RN RN aa5 Sorin Espinoza, CHAPARRO MAYFIELD jb4 Mikayla Schroeder ag3 Afshan Tucker RN RN jj7 Rogers Diaz MD MD sp4 Adriana Sagastume RN RN nj1 Corrections: (The following items were deleted from the chart) 07:49 07:40 NS 0.9% IV 1000 ml IV at 125 ml/hr in left forearm aa5 aa5
--- NOTE | 2023-06-06 07:10 | EDPHYS ---
Physician Documentation [facility] Name: Minnie Flores Age: 67 yrs Sex: Female : 1955 Arrival Date: 06/06/2023 Time: 02:21 Bed 18 Private MD: ED Physician Rogers Diaz HPI: 06/06 03:07 This 67 yrs old Female presents to ER via Unassigned with complaints of sp4 Abdominal Pain. 03:20 PMH - Allergies: Omeprazole; aspartame; PMHx: Bipolar disorder; Degenerative disc sp4 disease; Depression; Fibromyalgia;. 03:52 Patient with history of both fibromyalgia and perforated gastric ulcer presents with sp4 acute onset of diffuse abdominal pain associated with vomiting starting yesterday. Vomitus was nonbloody. History of cholecystectomy and hysterectomy.. Historical: - Allergies: 03:12 aspartame; jj7 03:12 Omeprazole; jj7 - PMHx: 03:12 Bipolar disorder; Degenerative disc disease; Depression; Fibromyalgia; jj7 - PSHx: 03:12 BILAT KNEE (Fibromyalgia); Total abdominal hysterectomy; GASTRIC BYPASS; jj7 - Immunization history:: Adult Immunizations up to date. - Social history:: Smoking status: Patient denies any tobacco usage or history of. Patient/guardian denies using alcohol, street drugs. - Family history:: not pertinent. ROS: 03:53 Constitutional: Negative for fever, chills, and weight loss, Abdomen/GI: Positive sp4 abdominal pain, positive nausea, positive vomiting, negative for rectal bleeding 03:53 All other systems are negative, Exam: 03:53 Constitutional: This is a well developed, well nourished patient who is awake, alert, sp4 and in no acute distress. Head/Face: Normocephalic, atraumatic. Eyes: Pupils equal round and reactive to light, extra-ocular motions intact. Lids and lashes normal. Conjunctiva and sclera are not injected. Cornea within normal limits. Periorbital areas with no swelling, redness, or edema. ENT: Nares patent. No nasal discharge, no septal abnormalities noted. Tympanic membranes are normal and external auditory canals are clear. Oropharynx with no redness, swelling, or masses, exudates, or evidence of obstruction, uvula midline. Mucous membranes moist. Neck: Trachea midline, no thyromegaly or masses palpated, and no cervical lymphadenopathy. Supple, full range of motion without nuchal rigidity, or vertebral point tenderness. Chest/axilla: Normal chest wall appearance and motion. Nontender with no deformity. No lesions are appreciated. Cardiovascular: Regular rate and rhythm with a normal S1 and S2. No gallops, murmurs, or rubs. Normal PMI, no JVD. No pulse deficits. Respiratory: Lungs have equal breath sounds bilaterally, clear to auscultation and percussion. No rales, rhonchi or wheezes noted. No increased work of breathing, no retractions or nasal flaring. Abdomen/GI: Soft, with normal bowel sounds. No distension or tympany. No guarding or rebound. Protuberant abdomen, diffusely tender, greater tenderness in the lower abdomen. Back: No spinal tenderness. No costovertebral tenderness. Skin: Warm, dry with normal turgor. Normal color with no rashes, no lesions, and no evidence of cellulitis. MS/ Extremity: Pulses equal, no cyanosis. Neurovascular intact. Full, normal range of motion. Neuro: Awake and alert, GCS 15, oriented to person, place, time, and situation. Cranial nerves II-XII grossly intact. Motor strength 5/5 in all extremities. Sensory grossly intact. Psych: Awake, alert, with orientation to person, place and time. Behavior, mood, and affect are within normal limits Vital Signs: 03:05 BP 142 / 78; Pulse 144; Resp 20; Temp 98.4; Pulse Ox 100% ; Weight 99.79 kg; Height 5 jj7 ft. 6 in. ; Pain 10/10; 05:00 BP 145 / 64; Pulse 117; Resp 16; Pulse Ox 98% ; jb4 06:30 BP 169 / 78; Pulse 117; Resp 16; Pulse Ox 97% on R/A; jb4 07:30 BP 172 / 73; Pulse 114; Resp 18 S; Temp 98.5(O); Pulse Ox 98% on R/A; aa5 09:00 BP 165 / 81; Pulse 117; Resp 16 S; Pulse Ox 96% on R/A; aa5 03:05 Body Mass Index 35.51 (99.79 kg, 167.64 cm) jj7 03:05 Pain Scale: Adult jj7 MDM: 03:19 Patient medically screened. sp4 07:00 ED course: CT today - COMPARISON: CT abdomen and pelvis without contrast June 01 sp4 2021. FINDINGS: Lung bases: Unremarkable. No mass. No consolidation. ABDOMEN: Liver: Unremarkable. No mass. Gallbladder and bile ducts: Gallbladder is surgically absent. Mild intrahepatic biliary dilatation. Common bile duct is dilated measuring up to 13 mm in diameter. Pancreas: Peripancreatic stranding concerning for acute pancreatitis. No ductal dilation. Spleen: Unremarkable. No splenomegaly. Adrenals: Unremarkable. No mass. Kidneys and ureters: Simple cyst in the right kidney. No follow-up imaging is recommended. No hydronephrosis. Stomach and bowel: Scattered colonic diverticula. No obstruction. No mucosal thickening. PELVIS: Appendix: No findings to suggest acute appendicitis. Bladder: Unremarkable. Reproductive: Uterus is not seen. ABDOMEN and PELVIS: Intraperitoneal space: Postsurgical changes in the upper abdomen. No free air. No significant fluid collection. Bones/joints: No acute fracture. No dislocation. Soft tissues: Laxity of the upper abdominal wall fascia, similar to prior. Vasculature: Unremarkable. No abdominal aortic aneurysm. Lymph nodes: Unremarkable. No enlarged lymph nodes. IMPRESSION: 1. Peripancreatic stranding concerning for acute pancreatitis. 2. Gallbladder is surgically absent. 3. Mild intrahepatic biliary dilatation. Common bile duct is dilated measuring up to 13 mm in diameter.. 07:07 Differential Diagnosis altered mental status, sepsis, flu. Data reviewed: vital signs, sp4 nurses notes, old medical records, lab test result(s), CBC, electrolytes, hepatic panel, urinalysis, radiologic studies, CT scan. Consideration of Admission/Observation Patient was admitted/placed on observation. Escalation of care including admission/observation considered. ED course: Patient has no sign of bowel obstruction on CAT scan. Labs suggest acute pancreatitis. Patient warrants admission for management of acute pancreatitis... 06/06 03:21 Order name: CBC with Diff; Complete Time: 06:56 sp4 06/06 03:21 Order name: CMP; Complete Time: 06:56 sp4 06/06 03:21 Order name: Lipase; Complete Time: 06:56 sp4 06/06 03:21 Order name: Urinalysis w/ reflexes sp4 06/06 04:08 Order name: Manual Differential; Complete Time: 06:56 EDMS 06/06 07:10 Order name: COVID-19 SARS RT PCR sp4 06/06 03:21 Order name: CT Abd/Pelvis - IV Contrast Only sp4 06/06 03:22 Order name: IV Saline Lock; Complete Time: 04:06 sp4 06/06 03:22 Order name: Labs collected and sent; Complete Time: 04:06 sp4 06/06 07:10 Order name: NPO; Complete Time: 07:10 sp4 Administered Medications: 04:59 Drug: TORadol - Ketorolac IVP 15 mg IVP once Route: IVP; Site: left hand; jb4 04:59 Drug: morphine IVP or IV 4 mg IVP once over 4 mins Route: IVP; Infused Over: 4 mins; 4 Site: left hand; 04:59 Drug: metoCLOPramide IVP 10 mg IVP once; over 1 to 2 minutes Route: IVP; Site: left jb4 hand; 05:00 Drug: NS 0.9% IV 1000 ml IV at 1 bolus Per protocol; 1000 mL bolus Route: IV; Rate: 1 jb4 bolus; Site: left hand; 07:30 Follow up: IV Status: Completed infusion; IV Intake: 1000ml aa5 05:00 Drug: Famotidine IVP 20 mg IVP once; dilute with 10 mL 0.9% NaCl; give over 2 minutes [facility] Route: IVP; Site: left hand; 05:00 Drug: Ondansetron IVP 4 mg IVP once; over 2 minutes Route: IVP; Site: left hand; jb4 07:40 Drug: Ondansetron IVP 4 mg IVP once; over 2 minutes Route: IVP; Site: left wrist; aa5 08:00 Follow up: Response: No adverse reaction aa5 09:30 Follow up: Response: No adverse reaction; Nausea is decreased nj1 07:40 Drug: NS 0.9% IV 1000 ml IV at 125 ml/hr continuous Route: IV; Rate: 125 ml/hr; Site: aa5 left wrist; 10:25 Follow up: IV Status: Infusion continued upon admission; IV Intake: 350ml nj1 07:42 Drug: HYDROmorphone IVP 1 mg IVP once Route: IVP; Site: left wrist; aa5 08:00 Follow up: Response: No adverse reaction aa5 09:30 Follow up: Response: No adverse reaction; Pain is decreased nj1 Disposition Summary: 06/06/23 07:09 Hospitalization Ordered Notes: Hospitalization Status: Inpatient Admission sp4 Provider: Brian Dalton Location: Telemetry/MedSurg (Inpatient) sp4 Condition: Stable sp4 Problem: new sp4 Symptoms: have improved sp4 Bed/Room Type: Standard sp4 Room Assignment: 208(06/06/23 18:50) bd Diagnosis - Acute pancreatitis sp4 Forms: - Medication Reconciliation Form sp4 - SBAR form sp4 - Leadership Thank You Letter sp4 Signatures: Dispatcher [employer] EDMS Slime Dozier Audri RN RN aa5 Sorin Espinoza RN RN jb4 Afshan Tucker RN RN jj7 Rogers Diaz MD MD sp4 Adriana Sagastume RN nj1 Corrections: (The following items were deleted from the chart) 03:58 03:22 Abdomen Limited+US.RAD.BRZ ordered. EDMS EDMS 18:50 07:09 sp4 bd
--- NOTE | 2023-06-06 07:18 | P.HP ---
Certification for Inpatient Patient admitted to: Inpatient With expected LOS: <2 Midnights Patient will require the following post-hospital care: None Practitioner: I am a practitioner with admitting privileges, knowledge of patient current condition, hospital course, and medical plan of care. Services: Services provided to patient in accordance with Admission requirements found in Title 42 Section 412.3 of the Code of Federal Regulations Patient History Date of Service: 06/06/23 Reason for admission: acute pancreatitis History of Present Illness: 67-year-old female the past medical history of bipolar, fibromyalgia, gastric ulcers degenerative disc disease, depression, fibromyalgia, large abdominal hernia presents to the emergency room with abdominal pain. She reports associated nausea vomiting, nonbloody started 2 days ago She reports poor appetitie, unable to tolerate PO. Hx Rou-en-y, hernia surg, No reported, fever chills, weight loss, rectal bleeding. She reports remote history of pancreatitis, she does not remember when. She denies alcohol use, no reported new medications. Plan to admit for acute pancreatitis. Laboratory evaluation WBCs 14.10, early left shift 88.0, microcytic anemia 11.1, 35.9, hyponatremia 130, acute on chronic kidney injury, unknown baseline BUN 22, creatinine 1.06, elevated lipase 1125, CT of the abdomen Allergies omeprazole [From Prilosec] Allergy (Verified 07/25/16 05:39) Nausea/Vomiting aspartame Adverse Reaction (Verified 07/25/16 00:26) migraine Home Medications: Hydrocodone/Acetaminophen [Hydrocodon-Acetaminophn 10-325] 10 - 325 mg PO Q6HR 08/18/14 Lurasidone HCl [Latuda] 80 mg PO DAILY 08/18/14 Hydroxyzine HCl [Atarax] 10 mg PO TID 03/06/22 Pantoprazole [Protonix Tab*] 40 mg PO DAILY 03/06/22 Quetiapine [Seroquel*] 50 mg PO BEDTIME 03/06/22 oxyBUTYnin chloride [Ditropan Xl] 10 mg PO DAILY 03/06/22 Ciprofloxacin HCl [Cipro 250 MG Tablet*] 500 mg PO BID 10 Days #40 tab 03/08/22 Doxycycline Hyclate 100 mg PO BID 10 Days #20 tab 03/08/22 Mupirocin Oint [Bactroban 2% Ointment*] 1 appl TOP BID #1 tube 03/08/22 - Past Medical/Surgical History Diabetic: No -: degenerative disk -: fibromyalgia -: arthritis -: colitis -: depression -: gastric bypass -: Bi knee sx -: cholecystectomy -: bladder suspension -: Exlap with gastric perforation repair Psychosocial/ Personal History: Patient is . - Family History Father -: Other (see notes) Notes: asbestosis, degenerative back disease Mother -: Diabetes, Cancer, Other (see notes) Notes: skin ca, dementia - Social History Alcohol use: No CD- Drugs: No Caffeine use: Yes Review of Systems 10-point ROS is otherwise unremarkable Physical Examination - Physical Exam General: Alert, In no apparent distress, Oriented x3 HEENT: Atraumatic, Normocephalic, PERRLA Neck: Supple, 2+ carotid pulse no bruit, JVD not distended Respiratory: Clear to auscultation bilaterally, Normal air movement Cardiovascular: No edema, Normal pulses, Regular rate/rhythm Gastrointestinal: Normal bowel sounds, Masses (generalized abdominal pain, no rebeound tenderness) Musculoskeletal: No clubbing, No swelling Integumentary: No rashes, No breakdown Neurological: Normal speech, Normal strength at 5/5 x4 extr - Studies Laboratory Data (last 24 hrs) 06/06/23 06/06/23 03:50 03:50 WBC 14.10 H Hgb 11.1 L Hct 35.9 L Plt Count 351 Sodium 130 L Potassium 4.6 BUN 22 H Creatinine 1.06 H Glucose 174 H Total Bilirubin 0.9 AST 45 H ALT 33 Alkaline Phosphatase 99 Lipase 1125 H Assessment and Plan - Plan Assessment plan acute pancreatitis intractable nausea vomiting abdominal pain Leukocytosis secondary to acute pancreatitis N.p.o., IV fluids, trend lipase, As needed antiemetics, as needed antiemetic analgesics WBCs 14.10, early left shift 88.0, elevated lipase 1125, CT of the abdomen dewlap Acute kidney injury unknown baseline likely secondary to nausea vomiting acute on chronic kidney injury, unknown baseline BUN 22, creatinine 1.06, Microcytic anemia microcytic anemia 11.1, 35.9, Trend H&H Hyponatremia hyponatremia 130, IV fluids bipolar fibromyalgia Resume appropriate home meds History gastric ulcers History of Samantha-en-Y surgery Avoid NSAIDs degenerative disc disease depression large abdominal hernia Resume appropriate home medications Diet n.p.o. Full code DVT scd Discharge Plan: Home Plan to discharge in: 48 Hours - Advance Directives Does patient have a Living Will: No Does patient have a Durable POA for Healthcare: Yes - Code Status/Comfort Care Code Status: Full Code Comfort Measures: Palliative Care Physician Review: Patient Assessed, Agree with Above Assessment and Plan Critical Care: No Time Spent Managing Pts Care (In Minutes): 50
[2023-06-06] MEDS ORDERED: HYDROMORPHONE HCL 1 MG/ML INJ ONE (07:43)
[2023-06-06] MEDS ORDERED: HYDROMORPHONE HCL 0.5 MG/0.5 ML INJ IV PRN (07:48)
[2023-06-06 10:14] VITALS: BMI 35.5
[2023-06-06] MEDS: NA CHLORIDE 0.9% 1,000 ML IV SCH ×2 (10:25→18:55)
[2023-06-06] MEDS ORDERED: HYDROMORPHONE HCL 0.5 MG/0.5 ML INJ IV ONE ×2 (12:15→22:53)
[2023-06-06] MEDS: ONDANSETRON 4 MG/2 ML VIAL IV PRN ×2 (12:25→22:14)
[2023-06-06] MEDS ORDERED: SUMATRIPTAN SUCCI 50 MG TAB PO ONE (14:56)
[2023-06-06] MEDS ORDERED: SUMATRIPTAN SUCC 6MG/0.5ML VIAL SQ ONE ×2 (15:40→16:00)
[2023-06-06] MEDS ORDERED: HYDROMORPHONE HCL 1 MG/ML INJ IV PRN (16:30)
[2023-06-06] MEDS: HYDROMORPHONE HCL 0.5 MG/0.5 ML INJ IV PRN ×2 (17:40→21:47)
[2023-06-06] MEDS: METRONIDAZOLE 500mg IVPB 500 MG/100 ML BAG IV SCH (17:44)
[2023-06-06] MEDS ORDERED: HYDROMORPHONE HCL 0.5 MG/0.5 ML INJ ONE ×2 (17:50→22:00)
[2023-06-06] MEDS ORDERED: CEFTRIAXONE 1000 MG/VIAL ONE (17:50)
[2023-06-06] MEDS ORDERED: METRONIDAZOLE 500mg IVPB 500 MG/100 ML BAG IV ONE (17:51)
[2023-06-06] MEDS ORDERED: NA CHLORIDE 0.9% 50 ML ONE (17:51)
[2023-06-06] MEDS: CEFTRIAXONE 1,000 MG in NA CHLORIDE 0.9% 50 ML IVPB SCH (18:17)
--- NOTE | 2023-06-06 19:29 | RAD REPORT ---
EXAM DESCRIPTION: CT - Abdomen Pelvis W Contrast - 06/06/2023 5:27 am CLINICAL HISTORY: The patient is 67 years old and is Female; ABD PAIN TECHNIQUE: Axial computed tomography images of the abdomen and pelvis with intravenous contrast. S agittal and coronal reformatted images were created and reviewed. This CT exam was performed using one or more of the following dose reduction techniques: automated exposure control, adjustment of t he mA and/or kV according to patient size, and/or use of iterative reconstruction technique. COMPARISON: CT abdomen and pelvis without contrast June 01, 2022. FINDINGS: Lung bases: Unremarkable. No mass. No consolidation. ABDOMEN: Liver: Unremarkable. No mass. Gallbladder and bile ducts: Gallbladder is surgically absent. Mild intrahepatic biliary dilatation. Common bile duct is dilated measuring up to 13 mm in di ameter. Pancreas: Peripancreatic stranding concerning for acute pancreatitis. No ductal dilation. Spleen: Unremarkable. No splenomegaly. Adrenals: Unremarkable. No mass. Kidneys and ureters: Simple cyst in the right kidney. No follow-up imaging is recommended. No hydronephrosis. Stomach and bowel: Scattered colonic diverticula. No obstruction. No mucosal thickening. PELVIS: Appendix: No findings to suggest acute appendicitis. Bladder: Unremarkable. Reproductive: Uterus is not seen. ABDOMEN and PELVIS: Intraperitoneal space: Postsurgical changes in the upper abdomen. No free air. No significant fluid collection. Bones/joints: No acute fracture. No dislocation. Soft tissues: Laxity of the upper abdominal wall fascia, similar to prior. Vasculature: Unremarkable. No abdominal aortic aneurysm. Lymph nodes: Unremarkable. No enlarged lymph nodes. IMPRESSION: 1. Peripancreatic stranding concerning for acute pancreatitis. 2. Gallbladder is surgically absent. 3. Mild intrahepatic biliary dilatation. Common bile duct is dilated measuring up to [address] Electronically signed by: Marshall Merlos MD 06/06/2023 06:09 AM ASSISTANT PROFESSOR OF PSYCHOLOGY Due to temporary technical issues with the PACS/Fluency reporting system, reports are being signed by the in house radiologists without review as a courtesy to insure prompt reporting. The interpreting radiologist is fully responsible for the content of the
[2023-06-06 22:32] VITALS: O2SAT 96
[2023-06-07] MEDS: NA CHLORIDE 0.9% 1,000 ML IV SCH ×4 (01:15→19:45)
[2023-06-07] MEDS: METRONIDAZOLE 500mg IVPB 500 MG/100 ML BAG IV SCH ×3 (01:15→16:17)
[2023-06-07] MEDS: HYDROMORPHONE HCL 0.5 MG/0.5 ML INJ IV PRN ×5 (02:02→20:40)
[2023-06-07] MEDS: ONDANSETRON 4 MG/2 ML VIAL IV PRN ×2 (05:46→10:36)
--- NOTE | 2023-06-07 06:51 | P.PN ---
Subjective Date of Service: 06/07/23 Chief Complaint: acute pancreatitis Subjective: Improving (reports mild nausea, no vomiting, plan to adv CL liq diet today) Review of Systems ROS perHPI Physical Examination - Vital Signs Temperature: 98.0 F Blood Pressure: 152/73 Pulse: 98 Respirations: 16 Pulse Ox (%): 94 - Physical Exam General: Alert, In no apparent distress, Oriented x3 HEENT: Atraumatic, Normocephalic, PERRLA Neck: Supple, 2+ carotid pulse no bruit, JVD not distended Respiratory: Clear to auscultation bilaterally, Normal air movement Cardiovascular: No edema, Normal pulses Capillary refill: <2 Seconds Gastrointestinal: Normal bowel sounds, Other (Lg abd hernia), Tenderness (epigastric, generalized ) Musculoskeletal: No clubbing Integumentary: No rashes, No breakdown Neurological: Normal speech, Normal strength at 5/5 x4 extr Assessment And Plan - Plan Assessment plan acute pancreatitis intractable nausea vomiting abdominal pain Leukocytosis secondary to acute pancreatitis US of Liver/Pancreas, triglycerices, GI consult added 06/07 Lipase trending down, plan to add cl liq diet N.p.o., IV fluids, trend lipase, As needed antiemetics, as needed antiemetic analgesics IV flagyl, cefepime added, WBCs 14.10, early left shift 88.0, elevated lipase 1125, CT of the abdomen Lg abd hernia -FU with Dr Hammond after Discharge to [facility] US IMPRESSION: Cholecystectomy Pancreas is mildly enlarged consistent with pancreatitis triglcerides Acute kidney injury unknown baseline likely secondary to nausea vomiting-impr tu kidney function improved with IVF, acute on chronic kidney injury, unknown baseline BUN 22, creatinine 1.06, Microcytic anemia microcytic anemia 11.1, 35.9, Trend H&H Hyponatremia hyponatremia 130, IV fluids bipolar fibromyalgia Resume appropriate home meds History gastric ulcers History of Samantha-en-Y surgery Avoid NSAIDs degenerative disc disease depression large abdominal hernia Resume appropriate home medications Diet n.p.o. Full code DVT scd Discharge Plan: Home Plan to discharge in: 48 Hours - Code Status/Comfort Care Code Status: Full Code Physician Review: Patient Assessed, Agree with Above Assessment and Plan Critical Care: No Time Spent Managing PTS Care (In Minutes): 35
[2023-06-07 06:57] LABS: Absolute Lymphocytes (CBC) 1.1 K/uL (0.7-4.9); Hematocrit 30.2 % (36.0-45.0); Lymphocytes % 8.2 % (15.3-44.8); MCV 78.3 fL (80-100); MPV 6.6 fL (7.6-11.3); Platelets 270 thou/uL (152-406); RBC Red Blood Cell Count 3.86 M/uL (3.86-4.86)
[2023-06-07 07:19] LABS: Magnesium 2.2 mg/dL (1.6-2.4); Potassium 3.7 mEq/L (3.5-5.1)
[2023-06-07] MEDS: CEFTRIAXONE 1,000 MG in NA CHLORIDE 0.9% 50 ML IVPB SCH (08:24)
[2023-06-07] MEDS ORDERED: SUMATRIPTAN SUCC 6MG/0.5ML VIAL SQ ONE (09:00)
[2023-06-07] MEDS: CEFEPIME 2 GM in NA CHLORIDE 0.9% 100 ML IV SCH ×2 (10:36→20:38)
--- NOTE | 2023-06-07 10:57 | RAD REPORT ---
EXAM DESCRIPTION: US - Abdomen Exam Limited - 06/07/2023 10:25 am CLINICAL HISTORY: Abdominal pain. COMPARISON: CT abdomen June 06, 2023 FINDINGS: Cholecystectomy The biliary tree is normal caliber. Pancreas is mildly enlarged. No pseudocyst IMPRESSION: Cholecystectomy Pancreas is mildly enlarged consistent with pancreatitis No pseudocyst
--- NOTE | 2023-06-07 17:28 | RAD REPORT ---
EXAM DESCRIPTION: MRI - Cholangiogram - 06/07/2023 2:54 pm CLINICAL HISTORY: Evaluate CBD for stones COMPARISON: Abdomen Exam Limited dated 06/07/2023; Abdomen Pelvis W Contrast dated 06/06/2023 TECHNIQUE: Multiplanar multisequence MRI of the abdomen, obtained without IV contrast, utilizing [employer] sequences. FINDINGS: Status post cholecystectomy. No intrahepatic biliary ductal dilation. Common bile duct is mildly prominent in caliber, 11 millimeter. Upwardly convex filling defect at the ampulla, series 8, image 29, may represent an impacted small calculus. No other filling defects to s uggest choledocholithiasis. Smooth tapering at the ampulla. Main pancreatic duct is not dilated small nondilated extension of the main pancreatic duct may be communicating with the duodenum at the level proximal to the CAD communication, suggesting variant anatomy. Peripancreatic fat stranding with fluid tracking along the left retroperitoneum, again suggestive of sequelae of acute pancreatitis The visualized aspects of the liver, spleen, and adrenal glands are un remarkable. Re- demonstration of right upper pole medial 2.4 cm fluid signal intensity renal cyst. Visualized aspects of the bowel are unremarkable. No suspicious osseous lesions. Trace bilateral pleural effusions IMPRESSION: Upwardly convex filling defect at the ampulla, series 8, image 29, may represent an impa cted small common duct calculus. Common bile duct is mildly prominent caliber, 11 millimeter. Findings suggesting variant pancreatic duct anatomy as above.
[2023-06-07] MEDS ORDERED: CEFEPIME 2 GM VIAL ONE (20:51)
[2023-06-08] MEDS: HYDROMORPHONE HCL 0.5 MG/0.5 ML INJ IV PRN ×2 (01:25→05:01)
[2023-06-08] MEDS: METRONIDAZOLE 500mg IVPB 500 MG/100 ML BAG IV SCH ×2 (01:25→08:16)
[2023-06-08 03:12] LABS: Absolute Lymphocytes (CBC) 1.4 K/uL (0.7-4.9); Hematocrit 27.8 % (36.0-45.0); Lymphocytes % 10.9 % (15.3-44.8); MCV 77.7 fL (80-100); MPV 7.1 fL (7.6-11.3); Platelets 225 thou/uL (152-406); RBC Red Blood Cell Count 3.58 M/uL (3.86-4.86)
[2023-06-08 03:26] LABS: Magnesium 2.2 mg/dL (1.6-2.4); Potassium 3.3 mEq/L (3.5-5.1)
[2023-06-08] MEDS: NA CHLORIDE 0.9% 1,000 ML IV SCH ×2 (04:18→08:17)
[2023-06-08] MEDS ORDERED: HYDROXYZINE HCL 10 MG PO PRN (07:00)
[2023-06-08] MEDS ORDERED: HYDROCODONE/APAP 10/325 TAB PO PRN (07:00)
--- NOTE | 2023-06-08 07:05 | P.DS ---
Admission Date: 06/06/23 Discharge Date: 06/08/23 Disposition: ROUTINE DISCHARGE Discharge Condition: GOOD Reason for Admission: acute pancreatitis Brief History of Present Illness: 67-year-old female the past medical history of bipolar, fibromyalgia, gastric ulcers degenerative disc disease, depression, fibromyalgia, large abdominal hernia presents to the emergency room with abdominal pain. She reports associated nausea vomiting, nonbloody started 2 days ago She reports poor appetitie, unable to tolerate PO. Hx Rou-en-y, hernia surg, No reported, fever chills, weight loss, rectal bleeding. She reports remote history of pancreatitis, she does not remember when. She denies alcohol use, no reported new medications. Plan to admit for acute pancreatitis. Laboratory evaluation WBCs 14.10, early left shift 88.0, microcytic anemia 11.1, 35.9, hyponatremia 130, acute on chronic kidney injury, unknown baseline BUN 22, creatinine 1.06, elevated lipase 1125, CT of the abdomen General: Alert, In no apparent distress, Oriented x3 HEENT: Atraumatic, Normocephalic, PERRLA Neck: Supple, 2+ carotid pulse no bruit, JVD not distended Respiratory: Clear to auscultation bilaterally, Normal air movement Cardiovascular: No edema, Normal pulses, Regular rate/rhythm Gastrointestinal: Normal bowel sounds, Masses (generalized abdominal pain, no rebeound tenderness) Musculoskeletal: No clubbing, No swelling Integumentary: No rashes, No breakdown Neurological: Normal speech, Normal strength at 5/5 x4 extr Hospital Course: - Plan Assessment plan acute pancreatitis improved intractable nausea vomiting abdominal pain resolved Leukocytosis secondary to acute pancreatitis resolved advance diet today GI consulted US of Liver/Pancreas, triglycerices, GI consult added 06/07 Lipase trending down, plan to add cl liq diet IV fluids, trend lipase, As needed antiemetics, as needed antiemetic analgesics IV flagyl, cefepime added, WBCs 14.10, early left shift 88.0, elevated lipase 1125,trending down 124 CT of the abdomen acute pancreatitis Lg abd hernia -FU with Dr Hammond after Discharge to [facility] abd US IMPRESSION: Cholecystectomy Pancreas is mildly enlarged consistent with pancreatitis triglcerides 77 Lipase 1125, 290, repeat 124, tolerating p.o. diet abdominal pain resolved Large abdominal hernia Patient to follow-up with Dr. Redman acute outpatient for hernia evaluation Acute kidney injury unknown baseline likely secondary to nausea vomiting- improved kidney function improved with IVF, acute on chronic kidney injury, unknown baseline BUN 22, creatinine 1.06, Microcytic anemia microcytic anemia 11.1, 35.9, Trend H&H Hyponatremia hyponatremia 130, IV fluids bipolar fibromyalgia Resume appropriate home meds History gastric ulcers History of Samantha-en-Y surgery Avoid NSAIDs degenerative disc disease depression large abdominal hernia Resume appropriate home medications Vital Signs/Physical Exam: Temp Pulse Resp BP Pulse Ox 98.0 F 76 17 135/60 94 06/07/23 20:00 06/07/23 20:00 06/08/23 01:55 06/07/23 20:00 06/08/23 01:55 Laboratory Data at Discharge: WBC 12.70 thou/uL (4.3-10.9) H 06/08/23 02:15 Hgb 8.9 g/dL (12.0-15.0) L 06/08/23 02:15 Hct 27.8 % (36.0-45.0) L 06/08/23 02:15 Plt Count 225 thou/uL (152-406) 06/08/23 02:15 Sodium 137 mEq/L (136-145) 06/08/23 02:15 Potassium 3.3 mEq/L (3.5-5.1) L 06/08/23 02:15 BUN 16 mg/dL (7-18) 06/08/23 02:15 Creatinine 0.62 mg/dL (0.55-1.02) 06/08/23 02:15 Glucose 129 mg/dL (74-106) H 06/08/23 02:15 Magnesium 2.2 mg/dL (1.6-2.4) 06/08/23 02:15 Total Bilirubin 0.9 mg/dL (0.2-1.0) 06/06/23 03:50 AST 45 U/L (15-37) H 06/06/23 03:50 ALT 33 U/L (13-56) 06/06/23 03:50 Alkaline Phosphatase 99 U/L (45-117) 06/06/23 03:50 Triglycerides 77 mg/dL (<150) 06/07/23 13:11 Lipase 124 U/L (13-75) H 06/08/23 02:15 Home Medications: Hydrocodone/Acetaminophen [Hydrocodon-Acetaminophn 10-325] 10 - 325 mg PO Q6HR 08/18/14 Lurasidone HCl [Latuda] 120 mg PO DAILY 08/18/14 Hydroxyzine HCl [Atarax] 10 mg PO TID 03/06/22 SUMAtriptan succinate [Sumatriptan Succinate] 100 mg PO DAILY 06/06/23 SUMAtriptan succinate [Sumatriptan Succinate] 100 mg PO DAILY PRN 06/08/23 Physician Discharge Instructions: -Follow-up with PCP in 1 to 2 weeks -Follow-up with GI, Dr. Flynn, in 1-2 weeks -Please call Dr. Beverly at [phone] if any questions regarding hospital stay -Please call nursing station at [phone] if any nursing or medication questions -Return to the emergency room if symptoms worsen Diet: Low fat Activity: Fall precautions Followup: Francesco Redman MD [ACTIVE - CAN ADMIT] - Camacho Pride DO [Primary Care Provider] -
[2023-06-08] MEDS ORDERED: SUMATRIPTAN SUCCI 50 MG TAB PO PRN (07:31)
[2023-06-08] MEDS: CEFEPIME 2 GM in NA CHLORIDE 0.9% 100 ML IV SCH (08:16)
[2023-06-08 08:32] VITALS: BP 140/64; TEMP 99.8
[2023-06-08] MEDS ORDERED: POTASSIUM CL SA 10 MEQ TAB PO ONE (09:00)
--- NOTE | 2023-06-08 15:21 | EKG ---
Test Date: 2023-06-06 Test Time: 14:27:06 Reimbursement Consultant: ARCENIO MEASUREMENT RESULTS: Intervals: Rate: 107 NE: 158 QRSD: 78 QT: 316 QTc: 421 [place]: P: 63 NE: 158 QRS: 7 T: 30 INTERPRETIVE STATEMENTS: Sinus tachycardia Nonspecific T wave abnormality Abnormal ECG Compared to ECG 03/05/2022 14:53:37 T-wave abnormality now present Sinus rhythm no longer present Electronically Signed On 06-08-23 15:13:36 CERTIFIED DRIVER EXAMINER by Fausto Vo
== END 2023-06-08 13:59 | disposition home or self-care (01) | DRG 439 ==
LOC: ER 02:21 → ERHOLD 08:10 → 2ND 21:46
PROVIDERS: ADMIT Hospitalist; ATTEND Hospitalist
DX: K85.90 Acute pancreatitis without necrosis or infection, unspecified (principal); E87.1 Hypo-osmolality and hyponatremia; N17.9 Acute kidney failure, unspecified; M79.7 Fibromyalgia; N18.9 Chronic kidney disease, unspecified; D63.1 Anemia in chronic kidney disease; F31.9 Bipolar disorder, unspecified; K46.9 Unspecified abdominal hernia without obstruction or gangrene; D50.9 Iron deficiency anemia, unspecified; Z88.8 Allergy status to other drugs, medicaments and biological substances; Z90.49 Acquired absence of other specified parts of digestive tract; Z98.84 Bariatric surgery status; Z11.52 Encounter for screening for COVID-19; Z90.710 Acquired absence of both cervix and uterus; Z79.899 Other long term (current) drug therapy
CPT/HCPCS: 36415; 74177; 74181; 76705; 80048; 80053; 83690; 83735; 84478; 85025; 87635; 93005; 99285; J0692; J0696; J1170; J2405; J2765; J3030; J7030; Q9967

== ENCOUNTER 2025-02-27 15:57 | Emergency (ER) | payer OTHER ==
--- NOTE | 2025-02-27 18:08 | RAD REPORT ---
EXAM: Chest Single View HISTORY: 69 years Female ABDOMINAL PAIN COMPARISON: 03/01/2022 FINDINGS: LUNGS/PLEURA: The lungs are clear. No pleural effusions or pneumothorax. No pulmonary edema. CARDIAC/MEDIASTINUM: The cardiac silhouette is within normal limits. UPPER ABDOMEN: No significant abnormality. BONES: No acute abnormality. LINES/TUBES/OTHER: Square densities overlying the left upper chest wall likely external to the patien t. IMPRESSION: No evidence of acute cardiopulmonary disease.
[2025-02-27] MEDS ORDERED: ONDANSETRON 4 MG/2 ML VIAL ONE (19:20)
[2025-02-27] MEDS ORDERED: FAMOTIDINE 20 MG/2 ML VIAL IV ONE ×2 (19:21→22:27)
[2025-02-27] MEDS ORDERED: NA CHLORIDE 0.9% 500 ML ONE ×2 (19:21→23:04)
[2025-02-27] MEDS ORDERED: MORPHINE 4 MG/ML SYR ONE ×2 (19:30→22:27)
[2025-02-27 20:17] LABS: Absolute Lymphocytes (CBC) 1.3 K/uL (0.7-4.9); Hematocrit 45.6 % (36.0-45.0); Hemoglobin 15.1 g/dL (12.0-15.0); MCH 32.3 pg (27.0-35.0); MCHC 33.2 g/dL (32.0-36.0); MCV 97.3 fL (80-100); MPV 9.4 fL (7.6-11.3); Nucleated RBC Absolute Count 0.0 (0-0); Nucleated Red Blood Cells % 0.1 % (0-0); RBC Red Blood Cell Count 4.69 M/uL (3.86-4.86); White Blood Count 12.00 thou/uL (4.3-10.9)
[2025-02-27 20:20] LABS: Sqamous Epithelial <5 /HPF (None Seen); Urine Crystals Unidentified Few /HPF (None Seen); Urine Culture Reflex Order REFLEXED; Urine Microscopic Reflex YN ORDER UMIC; Urine WBC Clump Occasional /HPF (None Seen); Urine Yeast (Budding) Occasional /HPF (None Seen)
[2025-02-27 20:34] LABS: ALT/SGPT 28.0 U/L (13-56); AST/SGOT 18.0 U/L (15-37); Albumin 3.9 g/dL (3.4-5.0); Albumin/Globulin Ratio 1.0 (1.1-1.8); Alkaline Phosphatase 83.0 U/L (45-117); Anion Gap 12.3 mEq/L (5.0-15.0); BUN Blood Urea Nitrogen 24.0 mg/dL (7-18); Globulin 3.8 g/dL (2.3-3.5); Glucose Level 179.0 mg/dL (74-106); Lipase 38.0 U/L (13-75); Potassium 4.3 mEq/L (3.5-5.1)
--- NOTE | 2025-02-27 21:32 | RAD REPORT ---
EXAMINATION: Abdomen Pelvis W Contrast CLINICAL INDICATION: Female, 69 years old.ABD PAIN TECHNIQUE: CT abdomen and pelvis was performed, after the administration of IV contrast, as per [facility]. Axial, sagittal and coronal reconstructions were obtained. One or more of the following dose reduction techniques were used: Automated exposure control, adjustment of the mA and/o r kV according to patient size, and/or iterative reconstruction. Unless otherwise specified, incidental findings do not require dedicated imaging follow-up. [id number]. COMPARISON: 2022 CT, MRI FINDINGS: LOWER CHEST: Linear scarring versus atelectasis at the left lung base.No significant pericardial effu missy. Mitral annular calcifications. UPPER GI: Samantha-en-Y gastric bypass. There is fluid present within the excluded stomach. There appears to be inflammatory changes centered around the duodenum. There is extraluminal enteric contrast at the site of perforation which is in the proximal duodenum. The enteric contrast refluxed into the eff erent limb of the gastric bypass LIVER: Hepatic steatosis. Benign appearing and/or stable lesions are identified. No suspicious mass. GALLBLADDER/BILE DUCTS: Cholecystectomy. Moderate extrahepatic biliary ductal dilatation. This could be secondary to the post-cholecystectomy state. Recommend correlation with LFT's. If abnormal, consider MRCP for further evaluation. ? PANCREAS: Generalized hypoattenuation at the pancreatic head which is similar to prior. Prominent narvaez creatic duct at the body and tail. SPLEEN: Unremarkable. ADRENALS: No adrenal masses. KIDNEYS AND URETERS: No hydronephrosis.Low density and/or too small to characterize renal lesions whi ch are statistically benign.Nonobstructing renal calculi.No ureteral calculi. ABDOMINAL AORTA AND OTHER VESSELS: Mild atherosclerotic changes. PERITONEUM: Small volume of free air and fluid in the right upper quadrant. LYMPH NODES: No pathologic lymphadenopathy. ABDOMINAL WALL: Large ventral hernia SMALL BOWEL/COLON: Small bowel has normal course and caliber. No colonic wall thickening or pericolon ic inflammatory changes.Normal appendix. On Moderate formed stool burden. URINARY BLADDER: Underdistended but grossly unremarkable. REPRODUCTIVE ORGANS: No pathologic process. MUSCULOSKELETAL: No acute or suspicious osseous abnormality. ADDITIONAL FINDINGS: None. IMPRESSION: Perforated duodenal ulcer with free air and mild free fluid. No abscess. Recommend surgical consultat ion. Chronic extrahepatic biliary duct dilatation which has been previously evaluated with MRCP..
--- NOTE | 2025-02-27 22:11 | EDPHYS ---
Physician Documentation [facility] Name: Minnie Flores Age: 69 yrs Sex: Female : 1955 Arrival Date: 02/27/2025 Time: 15:57 Bed 6 Private MD: ED Physician Nabeel Ellis HPI: 02/27 17:10 This 69 yrs old Female presents to ER via Wheelchair with complaints of Nausea, cp Abdominal Pain. 17:10 The patient presents to the emergency department with nausea, that is moderate, cp vomiting, that is intermittent, abdominal pain, of the mid and upper abdomen. 17:10 Onset: The symptoms/episode began/occurred this morning. Possible causes: unknown. cp 17:10 Associated signs and symptoms: Pertinent negatives: constipation, diarrhea, fever, GI cp bleeding, active vomiting. Historical: - Allergies: 16:59 aspartame; me1 16:59 Omeprazole; me1 - PMHx: 16:59 Bipolar disorder; Degenerative disc disease; Depression; Fibromyalgia; me1 - PSHx: 16:59 BILAT KNEE (ya); Gastric Bypass; Total abdominal hysterectomy; me1 - Immunization history:: Adult Immunizations up to date. - Infectious Disease History:: Denies. - Social history:: Smoking status: Patient denies any tobacco usage or history of. ROS: 17:15 Constitutional: Negative for body aches, chills, fever, cp 17:15 Cardiovascular: Negative for chest pain, palpitations, cp 17:15 Respiratory: Negative for cough, shortness of breath, wheezing, 17:15 Abdomen/GI: Positive for abdominal pain, nausea and vomiting, Negative for diarrhea, constipation, hematemesis, 17:15 : Negative for urinary symptoms, 02/28 17:15 Neuro: Negative for altered mental status, headache, weakness, cp 17:15 Back: Negative for pain at rest, pain with movement, cp 17:15 All other systems are negative, Exam: 02/27 17:20 Constitutional: The patient appears in no acute distress, alert, awake, cp non-diaphoretic, non-toxic, well developed, well nourished, uncomfortable, 17:20 Head/Face: Normocephalic, atraumatic. cp 17:20 Eyes: Periorbital structures: appear normal, Conjunctiva: normal, no exudate, no injection, Sclera: no appreciated abnormality, Lids and lashes: appear normal, bilaterally, 17:20 ENT: External ear(s): are unremarkable, Nose: is normal, Mouth: Lips: moist, Oral mucosa: moist, Posterior pharynx: Airway: no evidence of obstruction, patent, 17:20 Neck: ROM/movement: is normal, is supple, without pain, no range of motions limitations, 17:20 Chest/axilla: Inspection: normal, 17:20 Cardiovascular: Rate: normal, Rhythm: regular, Edema: ankle edema, that is very mild, JVD: is not appreciated, 17:20 Respiratory: the patient does not display signs of respiratory distress, Respirations: normal, no use of accessory muscles, no retractions, labored breathing, is not present, Breath sounds: are clear throughout, no decreased breath sounds, no stridor, no wheezing, 17:20 Abdomen/GI: Inspection: obese Bowel sounds: active, all quadrants, Palpation: soft, in all quadrants, moderate abdominal tenderness, in all quadrants, rebound tenderness, is not appreciated, involuntary guarding, is not appreciated, 17:20 Back: CVA tenderness, is absent, 17:20 Skin: no rash present. 17:20 Neuro: Orientation: to person, place \T\ time. Mentation: is normal, Motor: moves all fours, strength is normal, Sensation: is normal, 22:38 ECG was reviewed by the Attending Physician. Vital Signs: 16:57 BP 132 / 63; Pulse 66; Resp 17; Temp 98.3; Pulse Ox 99% ; Weight 104.33 kg; Height 5 me1 ft. 6 in. ; Pain 10/10; 20:41 BP 127 / 66; Pulse 71; Resp 16 S; Pulse Ox 98% on R/A; lg3 22:31 BP 159 / 77; Pulse 86; Resp 17 S; Pulse Ox 96% on R/A; lg3 02/28 00:33 BP 143 / 67; Pulse 77; Resp 16 S; Pulse Ox 97% on R/A; lg3 02/27 16:57 Body Mass Index 37.12 (104.33 kg, 167.64 cm) [facility] 02/27 16:57 Pain Scale: Adult [facility] MDM: 02/27 16:54 Medical Screening Exam initiated cp 18:00 Differential diagnosis: gastritis, viral gastroenteritis, gastroenteritis, bowel cp obstruction, bowel perforation. 21:58 Data reviewed: vital signs, nurses notes, lab test result(s), radiologic studies, CT cp scan. Management of patient was discussed with the following: Backbreaker: DR Uribe, requests transfer for bariatric surgeon. Zosyn antibiotic ordered. 22:25 Management of patient was discussed with the following: general surgeon \T\[facility], DR Kirkpatrick, who will consult for surgery. 22:47 ED course: consult with hospitalist at [facility], DR Bhagat, who will accept cp transfer. 02/27 17:04 Order name: CBC with Diff; Complete Time: 21:41 cp 02/27 21:51 Interpretation: Reviewed. 02/27 17:04 Order name: CMP; Complete Time: 21:41 cp 02/27 21:51 Interpretation: Normal except: CL 111; CO2 18; GLUC 179; BUN 24; CRE 1.34; GFR 43; CA cp 10.4; GLOB 3.8; A/G 1.0. 02/27 17:04 Order name: Lipase; Complete Time: 21:41 cp 02/27 17:04 Order name: UA Rfx Saad Cult if indicated; Complete Time: 21:41 cp 02/27 21:52 Interpretation: Normal except: [facility] Extremely Turbid; UBLD Trace; UPROT 1+; UNIT 2+; cp UESTR 500; UWBC >50; URBC 5-10; UWBC Clump Occasional; BYST Occasional. 02/27 17:04 Order name: Lactate w/ 2H reflex if indic.; Complete Time: 21:41 cp 02/27 18:17 Order name: Magnesium; Complete Time: 23:40 cp 02/27 20:45 Order name: Ghost Lactate-NO COLLECT Timer; Complete Time: 22:45 EDMS 02/27 20:57 Order name: Urine Culture EDMS 02/27 21:43 Order name: BNP; Complete Time: 23:40 cp 02/27 21:43 Order name: Blood Culture Adult (2) cp 02/27 21:43 Order name: Protime (+inr) cp 02/27 21:43 Order name: Ptt, Activated cp 02/27 21:43 Order name: Troponin HS; Complete Time: 23:40 cp 02/27 23:37 Order name: Lactate Sepsis 2 HR Follow-up; Complete Time: 23:40 EDMS 02/27 23:40 Interpretation: Reviewed. cp 02/27 17:04 Order name: XRAY Chest (1 view); Complete Time: 18:16 cp 02/27 18:17 Order name: CT Abd/Pelvis - PO and IV Contrast: give oral contrast; Complete Time: 21:41cp 02/27 17:04 Order name: IV Saline Lock; Complete Time: 19:52 cp 02/27 17:04 Order name: Labs collected and sent; Complete Time: 19:52 cp 02/27 21:43 Order name: Accucheck; Complete Time: 22:23 cp 02/27 21:43 Order name: Cardiac monitoring; Complete Time: 22:23 cp 02/27 21:43 Order name: EKG - Nurse/Tech; Complete Time: 22:31 cp 02/27 21:43 Order name: IV Saline Lock - Large Bore; Complete Time: 22:23 cp 02/27 21:43 Order name: O2 Per Protocol; Complete Time: 22:23 cp 02/27 21:43 Order name: O2 Sat Monitoring; Complete Time: 22:23 cp 02/27 21:43 Order name: Vital Signs; Complete Time: 22:23 cp 02/27 21:53 Order name: NPO; Complete Time: 22:22 cp 02/27 23:15 Order name: Misc. Order: RECOLLECT BLUE TOP; Complete Time: 23:54 rv1 EC:38 Rate is 82 beats/min. Rhythm is regular. [place] interval is normal. QRS interval is normal. cp QT interval is normal. T waves are Inverted in leads III, aVR. Interpreted by me. Reviewed by me. Administered Medications: 19:51 Drug: NS 0.9% IV 500 ml 500 ml IV at 1 bolus once; to be given as a bolus over 60 lg3 minutes Volume: 500 ml; Route: IV; Rate: 1 bolus; Site: left forearm; 20:42 Follow up: Response: No adverse reaction; IV Status: Completed infusion; IV Intake: lg3 500ml 19:51 Drug: Ondansetron IVP 4 mg IVP once; over 2 minutes Route: IVP; Site: left forearm; lg3 20:42 Follow up: Response: No adverse reaction lg3 19:51 Drug: Famotidine IVP 20 mg IVP once; dilute with 10 mL 0.9% NaCl; give over 2 minutes lg3 Route: IVP; Site: left forearm; 20:42 Follow up: Response: No adverse reaction lg3 19:51 Drug: morphine IVP or IV 4 mg IVP once over 4 mins Route: IVP; Infused Over: 4 mins; lg3 Site: left forearm; 20:42 Follow up: Response: No adverse reaction; Marked relief of symptoms lg3 22:44 Drug: NS 0.9% IV 1000 ml IV at 1000 ml once; to be given as a bolus over 60 minutes ha1 Route: IV; Rate: 1000 ml; Site: left hand; 23:47 Follow up: Response: No adverse reaction; IV Status: Completed infusion; IV Intake: lg3 1000ml 22:44 Drug: Piperacillin-Tazobactam IVPB 4.5 grams IVPB once over 60 mins; (mix in 100 mL NS) ha1 Route: IVPB; Infused Over: 60 mins; Site: right forearm; 23:47 Follow up: Response: No adverse reaction; IV Status: Completed infusion; IV Intake: lg3 100ml 22:44 Drug: morphine IVP or IV 4 mg IVP once over 4 mins Route: IVP; Infused Over: 4 mins; ha1 Site: left hand; 23:47 Follow up: Response: No adverse reaction lg3 23:10 Drug: NS 0.9% IV 500 ml 500 ml IV at 1 bolus once; to be given as a bolus over 60 lg3 minutes Volume: 500 ml; Route: IV; Rate: 1 bolus; Site: left hand; 23:47 Follow up: Response: No adverse reaction; IV Status: Completed infusion; IV Intake: lg3 500ml 23:19 Drug: HYDROmorphone IVP 1 mg IVP once Route: IVP; Site: left forearm; lg3 23:48 Follow up: Response: No adverse reaction; Marked relief of symptoms lg3 Disposition: 02/28 09:03 Co-signature as Attending Physician, Nabeel Ellis MD I agree with the assessment and sharan plan of care. 03/01 00:10 Chart complete. cp Disposition Summary: 02/27/25 22:10 Transfer Ordered Notes: Transfer Location: [facility] cp Reason: Higher level of care cp Condition: Stable cp Problem: new cp Symptoms: have improved cp Accepting Physician: doctor(02/28/25 00:34) lg3 Diagnosis - Acute gastric ulcer with perforation cp - Nausea with vomiting, unspecified cp Forms: - Medication Reconciliation Form cp - SBAR form cp Signatures: Dispatcher [employer] EDMS Nabeel Ellis MD MD cha Page, Corey, PA-C PA-C Saira Baker RN RN lg3 Quin Nielsen RN RN ha1 Melissa Steele 1 Luz Maria Tillman RN RN me1 Corrections: (The following items were deleted from the chart) 02/27 18:18 18:18 MAGNESIUM+C.LAB.BRZ ordered. EDNV EDNV 02/28 00:34 02/27 22:10 doctor tripp lg3
--- NOTE | 2025-02-27 22:11 | ER ---
Nurse's Notes [facility] Name: Minnie Flores Age: 69 yrs Sex: Female : 1955 Arrival Date: 02/27/2025 Time: 15:57 Bed 6 Private MD: Diagnosis: Acute gastric ulcer with perforation;Nausea with vomiting, unspecified Presentation: 02/27 16:57 Chief complaint: Patient states: Upper abdomen pain that started this morning with n/v. me1 04/18 "burning". Reports she has recently been taking a lot acetaminophen for other aches and pains. Coronavirus screen: Vaccine status: Patient reports receiving the 2nd dose of the covid vaccine. Ebola Screen: No symptoms or risks identified at this time. Initial Sepsis Screen: Does the patient meet any 2 criteria? No. Patient's initial sepsis screen is negative. Does the patient have a suspected source of infection? No. Patient's initial sepsis screen is negative. Risk Assessment: Do you want to hurt yourself or someone else? Patient reports no desire to harm self or others. Onset of symptoms was February 27, 2025 at 04:00. 16:57 Method Of Arrival: Wheelchair me1 16:57 Acuity: AMY 3 me1 Historical: - Allergies: 16:59 aspartame; me1 16:59 Omeprazole; me1 - PMHx: 16:59 Bipolar disorder; Degenerative disc disease; Depression; Fibromyalgia; me1 - PSHx: 16:59 BILAT KNEE (ya); Gastric Bypass; Total abdominal hysterectomy; me1 - Immunization history:: Adult Immunizations up to date. - Infectious Disease History:: Denies. - Social history:: Smoking status: Patient denies any tobacco usage or history of. Screenin:49 [facility] ED Fall Risk Assessment (Adult) History of falling in the last 3 months, lg3 including since admission No falls in past 3 months (0 pts) Confusion or Disorientation No (0 pts) Intoxicated or Sedated No (0 pts) Impaired Gait No (0 pts) Mobility Assist Device Used No (0 pt) Altered Elimination No (0 pt) Score/Fall Risk Level 0 - 2 = Low Risk Oriented to surroundings, Maintained a safe environment, Educated pt \\T\\ family on fall prevention, incl call for assistance when getting out of bed, Assessed \\T\\ reinforced patient's understanding of fall precautions. Abuse screen: Denies threats or abuse. Denies injuries from another. Nutritional screening: No deficits noted. Tuberculosis screening: No symptoms or risk factors identified. Assessment: 19:49 General: Appears in no apparent distress. uncomfortable, Behavior is calm, cooperative. lg3 Pain: Complains of pain in abdomen Pain does not radiate. Pain currently is 9 out of 10 on a pain scale. Quality of pain is described as burning. Neuro: No deficits noted. Martinez Agitation-Sedation Scale (RASS): 0 - Alert and Calm Level of Consciousness is awake, alert, obeys commands, Oriented to person, place, time, situation. Cardiovascular: No deficits noted. Denies chest pain, shortness of breath, Capillary refill < 3 seconds Clubbing of nail beds is absent JVD is absent Patient's skin is warm and dry. Respiratory: No deficits noted. Airway is patent Respiratory effort is even, unlabored, Respiratory pattern is regular, symmetrical. GI: Abdomen is round non-distended, Reports upper abdominal pain, gaseousness, nausea. : No signs and/or symptoms were reported regarding the genitourinary system. EENT: No deficits noted. No signs and/or symptoms were reported regarding the EENT system. Derm: No deficits noted. No signs and/or symptoms reported regarding the dermatologic system. Skin is intact, is healthy with good turgor, Skin is dry, Skin is normal, Skin temperature is warm. Musculoskeletal: No deficits noted. No signs and/or symptoms reported regarding the musculoskeletal system. Circulation, motion, and sensation intact. Range of motion: intact in all extremities. 20:41 Reassessment: Patient appears in no apparent distress at this time. No changes from lg3 previously documented assessment. Patient and/or family updated on plan of care and expected duration. Pain level reassessed. Patient is alert, oriented x 3, equal unlabored respirations, skin warm/dry/pink. 22:16 Reassessment: Patient appears in no apparent distress at this time. No changes from lg3 previously documented assessment. Patient and/or family updated on plan of care and expected duration. Pain level reassessed. Patient is alert, oriented x 3, equal unlabored respirations, skin warm/dry/pink. 02/28 00:32 Reassessment: Patient appears in no apparent distress at this time. No changes from lg3 previously documented assessment. Patient and/or family updated on plan of care and expected duration. Pain level reassessed. Patient is alert, oriented x 3, equal unlabored respirations, skin warm/dry/pink. Patient states feeling better. Patient states symptoms have improved. Vital Signs: 02/27 16:57 BP 132 / 63; Pulse 66; Resp 17; Temp 98.3; Pulse Ox 99% ; Weight 104.33 kg; Height 5 me1 ft. 6 in. ; Pain 10/10; 20:41 BP 127 / 66; Pulse 71; Resp 16 S; Pulse Ox 98% on R/A; lg3 22:31 BP 159 / 77; Pulse 86; Resp 17 S; Pulse Ox 96% on R/A; lg3 02/28 00:33 BP 143 / 67; Pulse 77; Resp 16 S; Pulse Ox 97% on R/A; lg3 02/27 16:57 Body Mass Index 37.12 (104.33 kg, 167.64 cm) vt1 02/27 16:57 Pain Scale: Adult [facility] [place] [place] ED Course: 02/27 15:59 Patient arrived in ED. im 16:23 Nabeel Cervantes PA-C is PHCP. cp 16:23 Nabeel Ellis MD is Attending Physician. cp 16:58 Triage completed. vt1 16:59 Arm band placed on Patient placed in waiting room. vt1 17:46 XRAY Chest (1 view) In Process Unspecified. EDMS 18:19 Radiology exam delayed due to lab results not completed at this time. (BUN/Creatinine) jc4 IV insertion attempt and/or patient not having appropriate IV at this time. 19:49 Saira Gomez, RN is Primary Nurse. lg3 19:49 Patient has correct armband on for positive identification. Placed in gown. Bed in low lg3 position. Call light in reach. Side rails up X 1. Client placed on continuous cardiac and pulse oximetry monitoring. NIBP monitoring applied. Door closed. Noise minimized. Warm blanket given. Pillow given. 19:49 Initial lab(s) drawn, by ED staff, sent to lab. Inserted saline lock: 22 gauge in left lg3 forearm, using aseptic technique. Blood collected. Flushed with 10 mL NS. 19:52 Lactate w/ 2H reflex if indic. Sent. lg3 19:52 CBC with Diff Sent. lg3 19:52 CMP Sent. lg3 19:52 Lipase Sent. lg3 19:53 Urine collected: clean catch specimen, cloudy. lg3 19:53 UA Rfx Saad Cult if indicated Sent. lg3 21:14 CT Abd/Pelvis - PO and IV Contrast: give oral contrast In Process Unspecified. EDMS 22:04 Initiated transfer with [facility] at [facility]. rv1 22:20 Inserted saline lock: 24 gauge in left hand, using aseptic technique. Blood collected. ha1 Flushed with 10 mL NS. 22:21 Doc to Doc with General Sx at [facility]. rv1 22:23 BNP Sent. ha1 22:23 Blood Culture Adult (2) Sent. ha1 22:23 Protime (+inr) Sent. ha1 22:23 Ptt, Activated Sent. ha1 22:23 Troponin HS Sent. ha1 22:36 EKG done, by health and safety technician. ts3 22:48 Doc to Doc with Hospitalist at [facility], requesting repeat Lactate before bed assignment. rv1 23:40 Called transfer center back to give updated lactate. rv1 23:[address] Bhagat to [facility] Rm [id number]. rv1 08 00:00 [facility] to transfer. rv1 00:33 No provider procedures requiring assistance completed. Patient transferred, IV remains lg3 in place. Administered Medications: 02/27 19:51 Drug: NS 0.9% IV 500 ml 500 ml IV at 1 bolus once; to be given as a bolus over 60 lg3 minutes Volume: 500 ml; Route: IV; Rate: 1 bolus; Site: left forearm; 20:42 Follow up: Response: No adverse reaction; IV Status: Completed infusion; IV Intake: lg3 500ml 19:51 Drug: Ondansetron IVP 4 mg IVP once; over 2 minutes Route: IVP; Site: left forearm; lg3 20:42 Follow up: Response: No adverse reaction lg3 19:51 Drug: Famotidine IVP 20 mg IVP once; dilute with 10 mL 0.9% NaCl; give over 2 minutes lg3 Route: IVP; Site: left forearm; 20:42 Follow up: Response: No adverse reaction lg3 19:51 Drug: morphine IVP or IV 4 mg IVP once over 4 mins Route: IVP; Infused Over: 4 mins; lg3 Site: left forearm; 20:42 Follow up: Response: No adverse reaction; Marked relief of symptoms lg3 22:44 Drug: NS 0.9% IV 1000 ml IV at 1000 ml once; to be given as a bolus over 60 minutes ha1 Route: IV; Rate: 1000 ml; Site: left hand; 23:47 Follow up: Response: No adverse reaction; IV Status: Completed infusion; IV Intake: lg3 1000ml 22:44 Drug: Piperacillin-Tazobactam IVPB 4.5 grams IVPB once over 60 mins; (mix in 100 mL NS) ha1 Route: IVPB; Infused Over: 60 mins; Site: right forearm; 23:47 Follow up: Response: No adverse reaction; IV Status: Completed infusion; IV Intake: lg3 100ml 22:44 Drug: morphine IVP or IV 4 mg IVP once over 4 mins Route: IVP; Infused Over: 4 mins; ha1 Site: left hand; 23:47 Follow up: Response: No adverse reaction lg3 23:10 Drug: NS 0.9% IV 500 ml 500 ml IV at 1 bolus once; to be given as a bolus over 60 lg3 minutes Volume: 500 ml; Route: IV; Rate: 1 bolus; Site: left hand; 23:47 Follow up: Response: No adverse reaction; IV Status: Completed infusion; IV Intake: lg3 500ml 23:19 Drug: HYDROmorphone IVP 1 mg IVP once Route: IVP; Site: left forearm; lg3 23:48 Follow up: Response: No adverse reaction; Marked relief of symptoms lg3 Medication: 19:49 VIS not applicable for this client. lg3 Intake: 20:42 IV: 500ml; Total: 500ml. lg3 23:47 IV: 1000ml; Total: 1500ml. lg3 23:47 IV: 100ml; Total: 1600ml. lg3 23:47 IV: 500ml; Total: 2100ml. lg3 Outcome: 22:10 ER care complete, transfer ordered by MD. almaguer 02/28 00:33 Transferred by ground EMS to [facility], Transfer form completed. lg3 Condition: stable Instructed on the need for transfer, Demonstrated understanding of instructions, 00:34 Patient left the ED. lg3 Signatures: Dispatcher [employer] EDMS Nabeel Cervantes, PA-C PA-C cp Able, Saira, RN RN lg3 Quin Nielsen, RN RN ha1 Melissa Steele rv1 Antionette Escamilla Michelle RN RN me1 Steve Pittman jc4 Maame Jones ts3 Corrections: (The following items were deleted from the chart) 00:12 00:00 Called transfer center back to give updated lactate rv1 rv1
[2025-02-27] MEDS ORDERED: NA CHLORIDE 0.9% 1,000 ML ONE (22:28)
[2025-02-27] MEDS ORDERED: NA CHLORIDE 0.9% 100 ML ONE (22:30)
[2025-02-27] MEDS ORDERED: PIPERACIL/TAZO 3.375 GM VIAL IV ONE (22:30)
[2025-02-27 22:53] LABS: PT Prothrombin Time 13.0 SECONDS (10-13.0); Protime INR 1.16
[2025-02-27 23:10] LABS: NT PRO-BNP 143.0 pg/mL (<125); Troponin High Sensitivity 4.2 pg/mL (<58.9)
[2025-02-27] MEDS ORDERED: HYDROMORPHONE HCL 1 MG/ML INJ ONE (23:17)
[2025-02-28 00:26] LABS: PTT, Activated Partial Thromb 26.8 SECONDS (27.2-37.4)
[2025-02-28 01:07] VITALS: TEMP 98.3
[2025-02-28 01:12] VITALS: BP 143/67; O2SAT 97
== END 2025-02-28 00:34 | disposition short-term general hospital (02) ==
LOC: ER 15:57
DX: K25.1 Acute gastric ulcer with perforation (principal); Z98.84 Bariatric surgery status
CPT/HCPCS: 87040 ×2; 87088; 85025; 81001; 87086; 36415; 83735; 85610; 83605 ×2; 85730; 87077; 87186; 84484; 83690; 80053; 83880; 74177; 71045; 99285; Q9967; J2543; J1171; J2405; J7040 ×2; J7030